=== PATIENT | female | born 1985 | race Caucasian/White ===

== ENCOUNTER 2016-10-21 13:56 | Emergency (ER) | payer OTHER ==
[~2016-10-21] VITALS: Ht 154.9 cm; Wt 74.8 kg
[~2016-10-21 13:56] MED LIST: ALPRAZOLAM0.5 M3 PO; ALPRAZOLAM0.5 MG PO; AMLODIPINE BESY10 M1 PO; AMLODIPINE10 MG PO; ASPIRIN CHILDRE81 MG PO; ASPIRIN81 M4 PO; ATIVAN0.5 MG PO; ATORVASTATIN CA20 MG PO; ATORVASTATIN CA40 M1 PO; BACTRIM DS 8001 TAB PO; CALCITRIOL0.5 MC1 PO; CALCIUM CA PO; CALCIUM CA500 MG/51 PO; CIPRO 500MG TA500 MG; CLEOCIN HCL300 MG PO; CLONIDINE0.1 MG PO; COLACE100 MG PO; COZAAR 100MG T100 MG PO; COZAAR 25MG TAB25 MG PO; COZAAR 50MG TAB50 MG PO; COZAAR100 M1 PO; DILAUDID2 M1 PO; DILAUDID2 MG PO; EPOGEN10000 UNIT SC; HYDRALAZINE HC100 M1 PO; HYDRALAZINE HCL25 M1 PO; HYDRALAZINE HCL50 M1 PO; HYDROMORPHONE HC2 MG PO; LABETALOL HCL200 MG PO; LABETALOL HCL300 M1 PO; LABETALOL HYDR100 MG PO; LABETALOL HYDR300 MG PO; LIPITOR20 MG PO; LOSARTAN POTASS50 MG PO; MARINOL2.5 M1 PO; NAPROSYN 250MG250 MG PO; NEURONTIN100 MG PO; NORVASC 2.5 MG2.5 MG PO; NORVASC 5MG TAB5 MG PO; OMEPRAZOLE40 MG PO; ONDANSETRON4 M1 PO; ONDANSETRON4 M1 SL; OXYCODONE5 M1 PO; PERCOCET 325 MG1 TAB PO; PHOSLO PO; PRAVACHOL40 MG PO; PRILOSEC 20MG C20 MG PO; PROCRIT20000 U/ML SC; PROTONIX 40MG T40 MG PO; RENAGEL 800MG800 MG PO; RENVELA800 MG PO; SENSIPAR90 MG PO; TRANDATE-NORMO100 MG PO; TRANDATE-NORMO200 MG PO; VANCOMYCIN 11000 MG; VOLTAREN GEL1% TOP; XANAX0.5 M1 PO; ZOFRAN ODT4 MG SL; ZOFRAN4 M2 PO; [UNRECOGNIZED DRUG - CODE] SC; flexeril PO
--- NOTE | 2016-10-21 14:52 | ED ANKLE/FOOT INJURY COMPLAINT ---
History of Present Illness General Chief Complaint: Foot or Ankle Injury Stated Complaint: RT FOOT PAIN Source: patient Exam Limitations: no limitations Vital Signs & Intake/Output Vital Signs & Intake/Output ED Intake and Output 10/22 0000 10/21 1200 Intake Total Output Total Balance Patient 165 lb Weight Allergies Coded Allergies: Iodinated Contrast Media - Oral and (Intermediate, HIVES AND SWELLING 09/20/16) morphine (Intermediate, RASH, FACIAL SWELLING 09/20/16) Penicillins (RASH 09/20/16) hydroxyzine (PER PT UNKNOWN 09/20/16) lisinopril (ANGIODEMA 09/20/16) LEIDA Inhibitors (ANGIODEMA 09/20/16) Reconcile Medications Alprazolam (Xanax) 0.5 MG TABLET 1 TAB PO DAILY NEEDED PRN ANXIETY ( Reported) Amlodipine Besylate (Amlodipine) 10 MG TAB 1 TAB PO DAILY BP (Reported) Aspirin (Aspirin*) 81 MG TAB.CHEW 81 MG PO DAILY heart health Calcitriol 0.5 MCG CAPSULE 1.5 CAP PO BID SUPPLEMENT (Reported) Calcium Carbonate 500 MG/5 ML ORAL.SUSP 20 ML PO BID SUPPLEMENT (Reported) Epoetin Carlos (Epogen) 10,000 UNIT INJ 10,000 UNIT SC Q2W ANEMIA (Reported) CONTINUE DOSE PER DIALYSIS CLINIC Hydralazine HCl 100 MG TABLET 1 TAB PO BID HTN (Reported) Labetalol HCl 300 MG TABLET 1.5 TAB PO BID HTN (Reported) Losartan (Cozaar) 100 MG TABLET 1 TAB PO DAILY HEART (Reported) Ondansetron HCl (Zofran) 4 MG TABLET 1 TAB PO Q6-8P PRN NAUSEA (Reported) Oxycodone HCl 5 MG TABLET 1-2 TAB PO Q6P PRN pain Triage Note: SMASHED FOOT ON ROCKING CHAIR WHILE RUNNING IN THE HOUSE. +SWELLING +BRUISING Triage Nurses Notes Reviewed? yes Occurred: just prior to arrival Duration: hour(s):, constant, continues in ED Timing: recent history Severity: moderate, severe : No Patient currently breastfeeds: No HPI: 31-year-old female comes into emergency room with complaints of right foot pain. Patient is a dialysis patient. Patient did not take her blood pressure medication today. Patient reports that she hit her foot on a rocking chair and has swelling and pain. Patient is here primarily only for her right foot. Patient denies any other symptoms. Patient denies any pain anywhere else. Sharp problem. Associated swelling right foot. (NAVID SMITH) Past History Travel History Traveled to [place] past 21 day No Medical History Any Pertinent Medical History? 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 Other Medical Hx: Obesity Eczema Catheter associated bacteremia with MRSA in September 2014 MRSA peritonitis/Sepsis History of Terrible compliance with Neds and dialysis History of MRSA: Yes History of VRE: No History of CDIFF: No Influenza Vaccine: 06/23/16 Surgical History Surgical History: , umbilical hernia repair tenckhof placement [place] CATH PLACEMENT AND REMOVAL Psychosocial History Who do you live with Father Services at Home None What is your primary language [place] Tobacco Use: Current Daily Use Daily Tobacco Use Amount/Type: => 5 Cigarettes daily ETOH Use: denies use Illicit Drug Use: denies illicit drug use Family History Family History, If Any: FATHER FH: CAD (coronary artery disease) FH: diabetes mellitus FH: stroke grandmother FH: colon cancer Hx Contributory? No (NAVID SMITH) Review of Systems Review of Systems Constitutional: Reports: no symptoms. EENTM: Reports: no symptoms. Respiratory: Reports: no symptoms. Cardiovascular: Reports: no symptoms. GI: Reports: no symptoms. Genitourinary: Reports: no symptoms. Musculoskeletal: Reports: see HPI. Skin: Reports: no symptoms. Neurological/Psychological: Reports: no symptoms. Hematologic/Endocrine: Reports: no symptoms. Immunologic/Allergic: Reports: no symptoms. All Other Systems: Reviewed and Negative (NAVID SMITH) Physical Exam Physical Exam General Appearance: well developed/nourished, mild distress Head: atraumatic Eyes: Bilateral: normal appearance. Ears, Nose, Throat: normal ENT inspection, hearing grossly normal Neck: normal inspection Cardiovascular/Respiratory: no respiratory distress Back: normal inspection Leg/Knee/Thigh Left: normal range of motion Foot Right: ecchymosis, soft tissue tenderness (dorsal aspect of foot), swelling Neuro/Vascular: normal motor function, normal sensation Tendon: normal tendon function Psychiatric: awake, alert, oriented x 3 Skin: intact, normal color, warm/dry (NAVID SMITH) Progress Differential Diagnosis: fracture, dislocation, sprain, compartmental syndrome Plan of Care: Orders Procedure Date/time Status XRY-FOOT COMPLETE, RIGHT 10/21 1402 Active Current Medications Sig/Bryan Start time Last Medication Dose Stop Time Status Admin Amlodipine Besylate 10 MG ONCE ONE 10/21 1500 UNVr (Norvasc) 10/21 1501 Hydralazine HCl 100 MG ONCE ONE 10/21 1500 UNVr (Apresoline) 10/21 1501 Labetalol HCl 300 MG ONCE ONE 10/21 1499 UNVr (Trandate-Normodyne 10/21 1501 200MG Tab) Losartan Potassium 100 MG ONCE ONE 10/21 1500 UNVr (Cozaar) 10/21 1501 Diagnostic Imaging: Viewed by Me: Radiology Read. Discussed w/RAD: Radiology Read. Radiology Impression: SERVICE DATE: 10/21/16 EXAM TYPE: RAD - XRY-FOOT COMPLETE, R EXAMINATION: XR FOOT, RIGHT CLINICAL INFORMATION: Trauma. Pain. COMPARISON: None TECHNIQUE: AP, lateral, and oblique views of the right foot. FINDINGS: There is no visible acute fracture, dislocation or periosteal elevation. There is mild dorsal midfoot soft tissue swelling suggestive of soft tissue hematoma. The ankle mortise and subtalar joints are normal. IMPRESSION: Moderate dorsal midfoot soft tissue swelling. No underlying fracture or dislocation seen. DICTATED BY: BROOKS HILL MD DATE/TIME DICTATED:10/21/161448 NP:KANDICE DATE/TIME TRANSCRIBED:10/21/161448 (NAVID SMITH) Departure Departure Disposition: HOME OR SELF CARE Condition: Stable Clinical Impression Primary Impression: Contusion of right foot Secondary Impressions: Hypertension Referrals: CLARA ANGEL MD (PCP/Family) Additional Instructions: Have your blood pressure rechecked again later on today. Ice. Rest. Return if any other concerns. Ice. Rest. . Elevation. Follow-up with orthopedic doctor provided if not better in 3-5 days. If symptoms do not improve you'll require further evaluation with possible repeat x-rays as well as evaluation by lead generation specialist. Sprains can last anywhere from days to weeks. No high impact running or jumping if you have an ankle sprain or any type of lower extremity sprain. Return to normal activity only after symptoms have resolved. Please go over all results of today's visit with your primary care doctor. Contact your primary care doctor to let them know you were here in the emergency room. There may be nonspecific findings which may not be related to your visit today here in the emergency room but may require further evaluation and chronic monitoring by your primary care doctor. If you had a laceration today the chance of foreign body always remains. You should follow-up with your primary care doctor for recheck in 3-5 days for a wound check. If you had an x-ray done there is a chance that a fracture could have been missed on initial read and you should follow-up with your primary care doctor for repeat x-rays if symptoms persist. If your blood pressure was elevated here in the emergency room please have rechecked by her primary care doctor within the next 48 hours by your primary care doctor. If you were prescribed a narcotic here in the emergency room or any type of controlled substances you're not allowed to drive while taking this medication or operate any type of heavy machinery. Narcotics can make you feel lightheaded dizziness nausea and can cause constipation. You may need to machine operator hop picker a stool softener. Thank you for choosing [facility] emergency room. Please return to the emergency room immediately if you have any other concerns worsening of symptoms. Departure Forms: Customer Survey General Discharge Information Prescriptions: Current Visit Scripts Oxycodone HCl 1-2 TAB PO Q6P PRN pain #10 TAB Comments 10/21/2016 4:11:27 PM Patient clinically looks well. Nontoxic-appearing. No evidence of fracture. Repeat blood pressure much improved after patient took her oral medications. Patient did not take any medications this morning. Patient is chronically high blood pressure. The blood pressure is better than the normal pressure. (NAVID SMITH) PA/AERIAL TRAM OPERATOR Co-Sign Statement Statement: ED Attending supervision documentation- [] I saw and evaluated the patient. I have also reviewed all the pertinent lab results and diagnostic results. I agree with the findings and the plan of care as documented in the PA's/AERIAL TRAM OPERATOR's documentation. X I have reviewed the ED Record and agree with the PA's/AERIAL TRAM OPERATOR's documentation. [] Additions or exceptions (if any) to the PAs/AERIAL TRAM OPERATOR's note and plan are summarized below: [] (JENNIFER COTA,)
--- NOTE | 2016-10-21 14:56 | RADIOLOGY REPORT ---
EXAMINATION: XR FOOT, RIGHT CLINICAL INFORMATION: Trauma. Pain. COMPARISON: None TECHNIQUE: AP, lateral, and oblique views of the right foot. FINDINGS: There is no visible acute fracture, dislocation or periosteal elevation. There is mild dorsal midfoot soft tissue swelling suggestive of soft tissue hematoma. The ankle mortise and subtalar joints are normal. IMPRESSION: Moderate dorsal midfoot soft tissue swelling. No underlying fracture or dislocation seen.
[2016-10-21 15:53] VITALS: BP 184/100
[2016-10-21] MEDS ORDERED: OXYCODONE HCL5 M1 PO (15:56)
== END 2016-10-21 16:09 ==
LOC: ERH 13:56
DX: S90.31XA Contusion of right foot, initial encounter (principal); I10 Essential (primary) hypertension; Z72.0 Tobacco use; W22.09XA Striking against other stationary object, initial encounter
CPT/HCPCS: 73630-RT; J3490

== ENCOUNTER 2016-11-06 11:01 | Inpatient (IN) | payer OTHER ==
[~2016-11-06] VITALS: Ht 154.9 cm; Wt 71.7 kg
[~2016-11-06 11:01] MED LIST changes: +OXYCODONE HCL5 M1 PO
--- NOTE | 2016-11-06 11:04 | ED HEADACHE COMPLAINT ---
History of Present Illness General Chief Complaint: Headache Stated Complaint: BIBA FOR LÓPEZ Source: patient, old records, EMS Exam Limitations: no limitations Vital Signs & Intake/Output Vital Signs & Intake/Output Vital Signs Date Time Temp Pulse Resp B/P Pulse O2 O2 Flow FiO2 Ox Delivery Rate 11/13 1612 98.5 84 20 144/72 92 11/13 1420 76 132/68 ED Intake and Output 11/14 0000 11/13 1200 Intake Total 930 480 Output Total 200 1900 Balance 730 -1420 Intake, IV 30 Intake, Oral 900 480 Number 0 Bowel Movements Output, 200 1900 Dialysate Output, Urine 0 Patient 158 lb Weight Allergies Coded Allergies: Iodinated Contrast Media - Oral and (Intermediate, HIVES AND SWELLING 09/20/16) Penicillins (RASH 09/20/16) hydroxyzine (PER PT UNKNOWN 09/20/16) lisinopril (ANGIODEMA 09/20/16) LEIDA Inhibitors (ANGIODEMA 09/20/16) Reconcile Medications Alprazolam (Xanax) 0.5 MG TABLET 1 TAB PO DAILY NEEDED PRN ANXIETY ( Reported) Amlodipine Besylate 10 MG TABLET 1 TAB PO DAILY BP (Reported) Aspirin (Aspirin*) 81 MG TAB.CHEW 81 MG PO DAILY heart health Calcitriol 0.5 MCG CAPSULE 1.5 CAP PO BID SUPPLEMENT (Reported) Calcium Carbonate 500 MG/5 ML ORAL.SUSP 20 ML PO BID SUPPLEMENT (Reported) Clonidine 0.2 MG/24 HOUR PATCH.TDWK 1 PAT TOP QWED BP (Reported) Epoetin Carlos (Epogen) 10,000 UNIT/ML VIAL 10,000 UNIT SC Q2W ANEMIA (Reported ) Hydralazine HCl 100 MG TABLET 1 TAB PO TID HTN (Reported) Hydromorphone HCl (Dilaudid) 2 MG TABLET 1 TAB PO Q6P pain 7-10 Labetalol HCl 200 MG TABLET 1 TAB PO BID HIGH BLOOD PRESSURE Labetalol HCl 200 MG TABLET 1 TAB PO BID HIGH BLOOD PRESSURE Losartan (Cozaar) 100 MG TABLET 1 TAB PO DAILY HEART (Reported) Ondansetron HCl (Zofran) 4 MG TABLET 1 TAB PO Q6-8P PRN NAUSEA (Reported) Triage Nurses Notes Reviewed? yes Onset: Abrupt Duration: hour(s): (12) Timing: multiple episodes today Quality/Severity: severe Severity Numbers: 10 Head Injury Location: bitemporal Associated Symptoms: NAUSEA, VOMITING HPI: 31 year old female with history of ERSD on PD who presents via EMS from home for chief comlpaint of headache since last night. Vomiting x few episodes this AM, unable to hold down any antihypertensives. Did not take any of her medications today. She reports completing her PD last night. BP was elevated yesterday but states that prior to that BP has been running aroudn 150/90 which is baseline for her. She also took off her clonidine patch because she thought it might be causing an allergi reaction. Past History Travel History Traveled to [place] past 21 day No Medical History Any Pertinent Medical History? 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 Other Medical Hx: Obesity Eczema Catheter associated bacteremia with MRSA in September 2014 MRSA peritonitis/Sepsis History of Terrible compliance with Neds and dialysis History of MRSA: Yes History of VRE: No History of CDIFF: No Influenza Vaccine: 06/23/16 Surgical History Surgical History: , umbilical hernia repair tenckhof placement [place] CATH PLACEMENT AND REMOVAL Psychosocial History Who do you live with Father Services at Home None What is your primary language Greek Family History Family History, If Any: FATHER FH: CAD (coronary artery disease) FH: diabetes mellitus FH: stroke grandmother FH: colon cancer Hx Contributory? No Review of Systems Review of Systems Constitutional: Denies: chills, fever. Eyes: Reports: blurred vision. Ears, Nose, Throat, Mouth: Reports: no symptoms. Respiratory: Denies: cough, short of breath, sputum production. Cardiovascular: Denies: chest pain. Gastrointestinal/Abdominal: Reports: nausea, vomiting. Denies: diarrhea. Genitourinary: Reports: no symptoms. Musculoskeletal: Reports: no symptoms. Skin: Reports: no symptoms. Neurological/Psychological: Reports: headache. Hematologic/Endocrine: Denies: bruising, bleeding. Endocrine: Reports: no symptoms. Immunologic/Allergic: Reports: no symptoms. All Other Systems: Reviewed and Negative Physical Exam Physical Exam General Appearance: well developed/nourished, alert, awake, anxious, moderate distress Head: atraumatic, normal appearance Eyes: Bilateral: normal appearance, PERRL, EOMI. Ears, Nose, Throat: normal pharynx, normal ENT inspection Neck: normal inspection, supple, full range of motion Respiratory: normal breath sounds, chest non-tender, no respiratory distress Cardiovascular: tachycardia Gastrointestinal: normal bowel sounds, soft, non-tender, PD CATHETER IN PLACE Back: normal inspection, normal range of motion Extremities: normal inspection, normal range of motion Psychiatric: awake, alert, oriented x 3 Cranial Nerves: normal hearing, normal speech, PERRL Skin: intact, normal color, warm/dry Core Measures Severe Sepsis Present: No Septic Shock Present: No Progress Differential Diagnosis: HYPERTENSIVE CRISIS, ICH, GASTROENTERITIS, CLONIDINE REBOUND HEADACHE/HYPERTENSION, NON COMPLIANCE Plan of Care: Orders Procedure Date/time Status Discharge Patient 11/13 UNK Active 11/06/2016 12:21:03 PM Patient still in pain despite IV dilaudid. Blood pressures 250/160. Labetalol 20 mg IV ordered. Oral medications and Catapres patch ordered. Nausea is now under control. D/W Dr. valdez in ED. BP improved after IV labetalol, SYstolic 170. Will hold additional antihypertensives. Patient admitted to ICU under Dr. Anton service. (MIRNA COTA,[facility]) Initial ED EKG: NSR Departure Departure Time of Disposition: 1331 Disposition: STILL A PATIENT Condition: Stable Clinical Impression Primary Impression: Hypertensive crisis Referrals: CLARA ANGEL MD (PCP/Family) Departure Forms: Customer Survey General Discharge Information Prescriptions: Current Visit Scripts Labetalol HCl 1 TAB PO BID #60 Hydromorphone HCl (Dilaudid) 1 TAB PO Q6P #12 TAB Labetalol HCl 1 TAB PO BID #60 TAB Admission Note Spoke With: Melanie ANTON MD Documentation of Exam: Documentation of any treatments & extenuating circumstances including Concerns Regarding Discharge (functional status, medication knowledge or non-compliance, living conditions, etc.) that warrant an admission rather than observation: [ICU MONITOR, ANTIHYPERTENSIVES, CARDIOLOGY EVALUATION, MONITOR ELECTROLYTES, SET UP FOR PERITONEAL DIALYSIS] Critical Care Note Critical Care Note Critical Care Time: 75-104 min Anion Gap 14, Estimated GFR 4 L, Glucose 96, Calcium 8.9, Phosphorus 5.0 H, Magnesium 1.7, Total Bilirubin 0.5, AST 8 L, ALT 21, Albumin 3.2 L, CBC w Diff NO MAN DIFF REQ, RBC 3.82 L, MCV 91.4, MCH 29.3, RDW 19.1 H, MPV 8.5, Gran % 95.1 H, Lymphocytes % 3.3 L, Monocytes % 1.2 L, Eosinophils % 0.3, Basophils % 0.1, Absolute Granulocytes 14.5 H, Absolute Lymphocytes 0.5 L, Absolute Monocytes 0.2, Absolute Eosinophils 0, Absolute Basophils 0, PUBS MCHC 32.0 L 11/06/2016 12:21:03 PM Patient still in pain despite IV dilaudid. Blood pressures 250/160. Labetalol 20 mg IV ordered. Oral medications and Catapres patch ordered. Nausea is now under control. (MIRNA COTA,[place]) Initial ED EKG: NSR Departure Departure Time of Disposition: 1331 Disposition: STILL A PATIENT Condition: Stable Clinical Impression Primary Impression: Hypertensive crisis Referrals: CLARA ANGEL MD (PCP/Family) Departure Forms: Customer Survey General Discharge Information Prescriptions: Current Visit Scripts Labetalol HCl 1 TAB PO BID #60 Admission Note Spoke With: Melanie ANTON MD Documentation of Exam: Documentation of any treatments & extenuating circumstances including Concerns Regarding Discharge (functional status, medication knowledge or non-compliance, living conditions, etc.) that warrant an admission rather than observation: [ICU MONITOR, ANTIHYPERTENSIVES, CARDIOLOGY EVALUATION, MONITOR ELECTROLYTES, SET UP FOR PERITONEAL DIALYSIS] Critical Care Note Critical Care Note Critical Care Time: 75-104 min
--- NOTE | 2016-11-06 11:17 | NUR ---
PT LILI FROM HOME. PT WAS GIVEN HERSELF HOME DIALYSIS LAST EVENING AND BEGAN TO GET A LÓPEZ. PT STATES SHE HAD N/V AND COULD NOT KEEP HER HTN MEDS DOWN. PT BP 280/182 IN AMBULANCE. PT ALSO C/O LOW BACK PAIN.
--- NOTE | 2016-11-06 11:29 | NUR ---
PT MEDICATED DIRECTED
[2016-11-06 11:33] LABS: ABSOLUTE BASOPHIL COUNT 0 /CUMM (0.0-0.2); ABSOLUTE EOSINOPHIL COUNT 0.5 /CUMM (0.0-0.7); ABSOLUTE GRANULOCYTE CT 8.1 /CUMM (1.4-6.5); ABSOLUTE MONOCYTE COUNT 0.5 /CUMM (0.10-0.60); BASOPHIL % 0.2 % (0.0-2.0); HEMATOCRIT 34.3 % (37-47); MEAN CORPUSCULAR HGB 29.6 PG (27.0-31.0); MEAN CORPUSCULAR HGB CONC 32.8 G/DL (33.0-37.0); MEAN CORPUSCULAR VOLUME 90.3 FL (81.0-99.0); MEAN PLATELET VOLUME 9.1 FL (7.4-10.4); PLATELET COUNT 405 /CUMM (130-400)
[2016-11-06 11:34] LABS: GRANULOCYTE % 80.6 % (42.2-75.2)
--- NOTE | 2016-11-06 11:57 | NUR ---
CRITICAL TEST RESULTS [id number] TERI BORRERO 31 F TESTS AND RESULTS: CR. 13.6 Results received and read back by: PAYAL HERNÁNDEZ Results received date and time: 11/06/16 1157 The following provider was notified of the results, and read the results back: DR. BRADLEY Notified date and time: 11/06/16 at 1157
--- NOTE | 2016-11-06 12:05 | NUR ---
DR. BRADLEY AWARE OF CURRENT BP MEDS ORDERED
--- NOTE | 2016-11-06 13:23 | NUR ---
DR. NAVARRO IN ROOM FOR EVAL. DR. BRADLEY AWARE OF RECENT BP
--- NOTE | 2016-11-06 13:57 | History & Physical ---
PRAKASH COTA,[facility] 11/06/16 1353: General Information and HPI MD Statement: I have seen and personally examined TERI WILSON and documented this H& P. The patient is a 31 year old F who presented with a patient stated chief complaint of [hypertension, nausea, and headache]. 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 Patient presented complaining of severe, sharp,9/10, constant diffuse headache that radiates to the neck. Patient had similar episode of headache in the past, she associates them with high blood pressure episodes. She had multiple nonbloody episodes of vomiting, because of her vomiting she did not take her oral antihypertensive medication. Patient has ESRD, on peritoneal dialysis at home. For the last few days the dialysis machine was giving alarms, she added I 'm not sure if this dialysis was adequate. Patient reported swelling on both legs. Patient is also complaining of left-sided intermittent and sharp flank pain. She is on 5 medications to keep her BP WNL She denies chest pain, shortness breath, or palpitation. She denies any new weakness or numbness, B [place] change, hearing change, or lower extremity pain. Allergies/Medications Allergies: Coded Allergies: Iodinated Contrast Media - Oral and (Intermediate, HIVES AND SWELLING 09/20/16) morphine (Intermediate, RASH, FACIAL SWELLING 09/20/16) Penicillins (RASH 09/20/16) hydroxyzine (PER PT UNKNOWN 09/20/16) lisinopril (ANGIODEMA 09/20/16) LEIDA Inhibitors (ANGIODEMA 09/20/16) Home Med list Alprazolam (Xanax) 0.5 MG TABLET 1 TAB PO DAILY NEEDED PRN ANXIETY ( Reported) Amlodipine Besylate 10 MG TABLET 1 TAB PO DAILY BP (Reported) Aspirin (Aspirin*) 81 MG TAB.CHEW 81 MG PO DAILY heart health Calcitriol 0.5 MCG CAPSULE 1.5 CAP PO BID SUPPLEMENT (Reported) Calcium Carbonate 500 MG/5 ML ORAL.SUSP 20 ML PO BID SUPPLEMENT (Reported) Clonidine 0.2 MG/24 HOUR PATCH.TDWK 1 PAT TOP QWED BP (Reported) Epoetin Carlos (Epogen) 10,000 UNIT/ML VIAL 10,000 UNIT SC Q2W ANEMIA (Reported ) Hydralazine HCl 100 MG TABLET 1 TAB PO TID HTN (Reported) Labetalol HCl 300 MG TABLET 1.5 TAB PO TID HTN (Reported) Losartan (Cozaar) 100 MG TABLET 1 TAB PO DAILY HEART (Reported) Ondansetron HCl (Zofran) 4 MG TABLET 1 TAB PO Q6-8P PRN NAUSEA (Reported) Past History Travel History Traveled to [place] past 21 day No Medical History Neurological: CVA (January 2013), BASAL GANGLIA lACUNAR stroke Basal ganglia hemorhage, right January 2013 Left Basal ganglia stroke September 2013 L occipital infarct EENT: NONE Cardiovascular: hypertension, hyperlipidemia, LVH Respiratory: pneumonia Gastrointestinal: L ABD PERTINEAL PORT UMBILICAL HERNIA Hepatic: NONE Renal: end-stage renal disease on home PERITONEAL dialysis Musculoskeletal: sciatica Psychiatric: anxiety Endocrine: hyperparathyroidism (secondary) Blood Disorders: NONE Cancer(s): NONE 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 child, parent Services at Home: None Primary Language: Syriac ETOH Use: denies use Illicit Drug Use: denies illicit drug use Living Will? yes Functional Ability ADLs Independent: dressing, eating, toileting, bathing. Ambulation: independent IADLs Independent: shopping, housework, finances, food prep, telephone, transportation , medication admin. Review of Systems Review of Systems Constitutional: Reports: see HPI. Denies: chills, fever, weakness. EENTM: Denies: blurred vision, double vision, visual changes, hearing changes. Cardiovascular: Reports: peripheral edema. Denies: chest pain, palpitations. Respiratory: Denies: cough, orthopnea, short of breath, wheezing. GI: Reports: nausea, vomiting. Denies: abdominal pain, constipation, diarrhea. Genitourinary: Denies: dysuria, hematuria. Musculoskeletal: Reports: back pain. Skin: Denies: rash. Neurological/Psychological: Reports: anxiety, headache. Denies: numbness, paresthesia, tingling. Exam & Diagnostic Data Last 24 Hrs of Vital Signs/I&O Vital Signs Date Time Temp Pulse Resp B/P Pulse O2 O2 Flow FiO2 Ox Delivery Rate 11/06 1409 97.7 78 16 160/90 11/06 1319 78 16 244/142 95 Room Air 11/06 1245 97.7 76 16 245/150 97 11/06 1242 97.7 16 18 244/150 11/06 1242 97.7 76 16 244/50 11/06 1242 97.7 76 16 244/150 11/06 1242 97.7 76 18 244/150 11/06 1214 97.2 86 16 250/160 11/06 1153 250/160 11/06 1129 97.2 86 16 220/160 11/06 1111 97 11/06 1110 97.2 86 16 220/160 95 Room Air Intake & Output 11/06 1600 11/06 0800 11/06 0000 Intake Total Output Total Balance Patient 74.843 kg Weight Physical Exam General Appearance Alert, Oriented X3, Cooperative, Moderate Distress Skin No Rashes HEENT Atraumatic, PERRLA, EOMI, Mucous Membr. moist/pink Cardiovascular Regular Rate, Normal S1, Normal S2, No Murmurs Abdomen crackles over both lungs with left being more than right Neurological Cranial Nerves 3-12 NL, speech mildly impaird which her baseline , left side weakness, this is her baseline Extremities b/l LE and UE edema. her left leg is larger than right with no tenderness Last 24 Hrs of Labs/Ashwin: Laboratory Tests 11/06/16 1124: Anion Gap 13, Estimated GFR 3 L, BUN/Creatinine Ratio 4.0 L, Glucose 111 H, Calcium 8.0 L, Total Bilirubin 0.6, AST 7 L, ALT 30, Alkaline Phosphatase 134 H, Total Protein 6.5, Albumin 3.5, Globulin 3.0, Albumin/Globulin Ratio 1.2, CBC w Diff NO MAN DIFF REQ, RBC 3.80 L, MCV 90.3, MCH 29.6, RDW 18.0 H, MPV 9.1, Gran % 80.6 H, Lymphocytes % 9.6 L, Monocytes % 4.6, Eosinophils % 5.0, Basophils % 0.2, Absolute Granulocytes 8.1 H, Absolute Lymphocytes 1.0 L, Absolute Monocytes 0.5, Absolute Eosinophils 0.5, Absolute Basophils 0, PUBS MCHC 32.8 L Assessment/Plan Assessment: Assessment and plan 1.Hypertensive emergency/headache Patient presented with severe headache and was found to have blood pressure of 245/150. Because of her nausea and vomiting she couldn't take her home antihypertensive medication. * Rule out ACS with serial troponin and EKG * Will control blood pressureand cardiology recommendation 2.ESRD on dialysis On presentation she looked volume overload. He reported that for the few days prior to admission had dialysis machine was making alarm sounds. On admission potassium was 5.1. Symptom and sign of volume overload(as lower extremity edema and crackles over both lungs) * After excluding we will order chest x-ray. * We will consult nephrology to set up a dialysis plan 3. Hx of CVA * Neuro checks * Continue aspirin/statin 4.Anxiety * We will hold medication for now 5.Bilateral lower extremity edema left larger than right * Duplex ultrasound to rule out DVT 6.Left flank pain She has positive tenderness on examination * Left kidney ultrasound Renal dialysis diet Heparin for DVT prophylaxis Full code As Ranked By This Provider Problem List: 1. Neck pain 2. Hypertensive emergency 3. Renal failure 4. Anxiety 5. Vomiting 6. Hypertension 7. Flank pain 8. Obesity 9. Headache Core Measures/Miscellaneous Severe Sepsis Severe Sepsis Present: No Septic Shock Septic Shock Present: No MELISSA COTA,Melanie DUNN 11/06/16 1540: Attending MD Review Statement Attending Statement Attending MD Statement: examined this patient, discuss w/resident/PA/VACUUM PAN OPERATOR, agreed w/resident/PA/VACUUM PAN OPERATOR, reviewed EMR data (avail), discussed with nursing, reviewed images, amended to note Attending Assessment/Plan: I have personally seen and examined the patient and agree with the housestaff's assessment, physical exam and plan as above. Briefly, the patient is a 30-year- old female who has had multiple admissions to [facility] in the past. She has a history of end-stage renal disease from uncontrolled hypertension. She is on peritoneal dialysis at home. Her hypertension is difficult to control, noting she is on 5 medications to maintain her blood pressure in the normal range. She also had a stroke in 2013 with residual left-sided weakness. The patient reported having a severe headache in association with nausea and vomiting. She was not able to take her antihypertensives. In the ED, the patient was found to have very high blood pressures, noting she presented with a blood pressure of 220/160. The patient required multiple medications to control her blood pressure in the emergency department. The patient continues to have a headache and is receiving pain medications for this. She also was noted to incidentally have increased left lower extremity swelling compared to her right lower extremity. She also complains of back pain and has left CVA tenderness on examination. The patient will be monitored in the ICU with neuro checks. We will take extra care to avoid dropping her blood pressure too fast. Dr. Mariee is helping us monitor the patient's blood pressure and making recommendations for adequate control. Troponins will be monitored. We will check lower extremity Dopplers, and a renal ultrasound. Nephrology has been consulted to help us provide the patient with peritoneal dialysis. We will provide her with antiemetics as necessary. She will receive DVT prophylaxis. I discussed the care of the patient with the housestaff and with cardiology. SHASTADINORAH 11/06/16 2151: Core Measures/Miscellaneous Acute Coronary Syndrome ACS Diagnosis: No Cerebrovascular Accident CVA/TIA Diagnosis: No Congestive Heart Failure CHF Diagnosis: No Venous Thromboembolism VTE Risk Factors: Acute medical illness, Age > 40 VTE Prophylaxis Ordered Inpt: Mechanical (ALPS/TEDS) No Mech VTE prophylaxis d/t: No contraindications No VTE Pharm Prophylaxis d/t: No contraindications VTE Diagnosis: No VTE Type: NONE VTE Confirmed by (Test): DUPLEX SCAN LOWER EXT Severe Sepsis Severe Sepsis Present: No Septic Shock Septic Shock Present: No Miscellaneous Documentation Attending Case Discussed With: Melanie TORRES MD Primary Care Physician: CLARA ANGEL MD Patient sees these Specialists Dr. Kodi Guardado Level of Patient Care: Critical Care (CRI) Resident Review Statement Resident Statement: examined this patient, discussed with intern retail, agreed with intern retail Other Findings: Ms. Wilson is a 30-year-old female with significant past medical history of end- stage renal disease [secondary to hypertension, after preeclampsia] on peritoneal dialysis nightly, hypertension with multiple admissions for hypertensive urgency, CVA in 2012 presents today with similar complaints of neck pain radiating up to her head causing a severe headache. She has had multiple admissions with similar complaints which was most likely related to hypertensive urgency. She has quite a difficult time controlling her blood pressure and has been treated with multiple antihypertensives. Today in the emergency department she was again hypertensive, 220/160, which went up shortly after to a maximum of 250/160. She states that this is her typical presentation and she knows she is hypertensive when she has these symptoms. She also complained of feeling nauseated and did have one episode of emesis. 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 Additionally, she complained of some mild left CVA pain, worse with movement and deep inhalation. She denies any chest pain, dyspnea, palpitations, fevers, chills, diaphoresis, constipation or diarrhea. She denies any recent travel or sick contacts. In the emergency department she was dosed with 10 mg of IV labetalol,, 20 mg of IV labetalol, Zofran and then she was able to tolerate her by mouth meds. She was given 300 of by mouth labetalol, 100 of by mouth hydralazine, 10 of by mouth amlodipine and her clonidine patch was applied. Labs were significant for white blood cell count 10, H&H 11.3/3, platelet count 405. Chemistry was significant for sodium 136, potassium 5.1, chloride 96 D1/ creatinine 54/13.6, glucose 111, calcium 8, phosphorus 4.9, alkaline phosphatase 134, troponin I0.03. HCG was negative. Probable list/assessment and plan Hypertensive urgency vs emergency * As Ms. Wilson has ESRD, we cannot use her kidney function to determine if she has acute kidney injury, however she does not have symptoms of encephalopathy, retinal hemorrhages/papilledema (on non-dilated ophthalmologic exam). * Our goal for reduction of blood pressure should be no more than 25-30% of her MAP. Our goal systolic blood pressure should approximately 180 mmHg, and no less than 160 mmHg over the first 24 hours, especially in light of her previous ischemic CVA. * As the patient's blood pressure has corrected significantly, we will avoid any more antihypertensives and if she continues to drop, we will remove her clonidine patch. * In the morning, please resume her BP meds slowly - consider resumption of TID dosed meds first (labetolol/hydralazine) as to not drop her BP too quickly, then dose her losartan, and amlodipine. * Cardio consult pending and appreciated. * Continue Zofran when necessary for nausea and Tylenol, Percocet, Dilaudid for mild/moderate and severe pain ESRD * renal consult placed and appreciated * She will be dialyzed [id number] per nephrology's recommendation with 2.5 % dextrose with 3.5 mEq of calcium * Renal dialysis diet * Avoid all NSAIDs and nephrotoxins Left lower extremity edema * Duplex US to rule out DVT FULL CODE ALPS for DVT ppx for now (U/S ruled out DVT) Renal dialysis diet pain path
--- NOTE | 2016-11-06 15:31 | NUR ---
US HERE TO TAKE PT STATES SHE NEEDS PAIN MED SPOKE WITH HOUSE STAFF DR. JUSTIN AND SHER ORDERED AND GIVEN
--- NOTE | 2016-11-06 15:37 | NUR ---
PT TO ROOM 113
--- NOTE | 2016-11-06 15:38 | NUR ---
US AWARE PT IS READY
[2016-11-06] MEDS ORDERED: CLONIDINE1 EAC1 TOP (15:39)
--- NOTE | 2016-11-06 15:40 | Admission Certification ---
Admission Certification Certification Statement - As attending physician, I certify that at the time of - admission, based on clinical presentation, severity of - symptoms, need for further diagnostic testing and - therapeutic interventions, and risk of adverse outcomes - without in-hospital treatment, in my clinical assessment, - this patient requires an acute hospital stay for a minimum - of two nights or longer. I have also considered psychsocial - factors such as support system, advanced age, financial - issues, cognitive issues, and failed out-patient treatments, - past re-admission history, safety of patient, and lack of - compliance as applicable. Specific rationale supporting this admission is: The patient needs critical care management for hypertensive emergency.
--- NOTE | 2016-11-06 16:49 | NUR ---
US COMPLETED CALL TO FLOOR MARILU BRAGG
--- NOTE | 2016-11-06 16:50 | Cons- Cardiology ---
General Information and HPI Consulting Request Date of Consult: 11/06/16 Requested By: MELISSA COTA,Melanie DUNN Reason for Consult: Hypertensive urgency Source of Information: patient, old records History of Present Illness: 31 year old female well known to me with history of ESRD on peritoneal dialysis and difficult to control HTN. Now admitted again via the ER with worsening headache, neck pain, nausea and vomitting and hypertensive urgency with BP as high as 250/140 in the ER. After multiple meds in the ER the BP remains elevated and the patient is to be admitted to the ICU for BP control and close BP monitoring in view of her prior history of CVA when the BP was lowered too quickly. She denies any other cardiovascular symptoms at the present time. She has noted some fluid retention with swelling of her arms , hands and legs. Allergies/Medications Allergies: Coded Allergies: Iodinated Contrast Media - Oral and (Intermediate, HIVES AND SWELLING 09/20/16) morphine (Intermediate, RASH, FACIAL SWELLING 09/20/16) Penicillins (RASH 09/20/16) hydroxyzine (PER PT UNKNOWN 09/20/16) lisinopril (ANGIODEMA 09/20/16) LEIDA Inhibitors (ANGIODEMA 09/20/16) Home Med List: Alprazolam (Xanax) 0.5 MG TABLET 1 TAB PO DAILY NEEDED PRN ANXIETY ( Reported) Amlodipine Besylate 10 MG TABLET 1 TAB PO DAILY BP (Reported) Aspirin (Aspirin*) 81 MG TAB.CHEW 81 MG PO DAILY heart health Calcitriol 0.5 MCG CAPSULE 1.5 CAP PO BID SUPPLEMENT (Reported) Calcium Carbonate 500 MG/5 ML ORAL.SUSP 20 ML PO BID SUPPLEMENT (Reported) Clonidine 0.2 MG/24 HOUR PATCH.TDWK 1 PAT TOP QWED BP (Reported) Epoetin Carlos (Epogen) 10,000 UNIT/ML VIAL 10,000 UNIT SC Q2W ANEMIA (Reported ) Hydralazine HCl 100 MG TABLET 1 TAB PO TID HTN (Reported) Labetalol HCl 300 MG TABLET 1.5 TAB PO TID HTN (Reported) Losartan (Cozaar) 100 MG TABLET 1 TAB PO DAILY HEART (Reported) Ondansetron HCl (Zofran) 4 MG TABLET 1 TAB PO Q6-8P PRN NAUSEA (Reported) Current Medications: Current Medications Sig/Bryan Start time Last Medication Dose Route Stop Time Status Admin Amlodipine Besylate 0 .STK-MED ONE 11/06 1221 DC PO Amlodipine Besylate 10 MG DAILY 11/06 1214 AC 11/06 PO 1242 Clonidine 1 PAT ONCE ONE 11/06 1230 CAN TOP 11/06 1231 Clonidine 1 PAT ONCE ONE 11/06 1230 DC 11/06 TOP 11/06 1231 1242 Hydralazine HCl 0 .STK-MED ONE 11/06 1404 DC .ROUTE Hydralazine HCl 10 MG ONCE ONE 11/06 1400 DC IV 11/06 1401 Hydralazine HCl 100 MG ONCE ONE 11/06 1215 DC 11/06 PO 11/06 1216 1242 Hydromorphone HCl 1 MG ONCE ONE 11/06 1545 DC 11/06 IV 11/06 1546 1536 Hydromorphone HCl 0 .STK-MED ONE 11/06 1535 DC .ROUTE Hydromorphone HCl 0 .STK-MED ONE 11/06 1222 DC .ROUTE Hydromorphone HCl 1 MG ONCE ONE 11/06 1215 DC 11/06 IV 11/06 1216 1214 Hydromorphone HCl 1 MG ONCE ONE 11/06 1130 DC 11/06 IV 11/06 1131 1129 Hydromorphone HCl 0 .STK-MED ONE 11/06 1126 DC .ROUTE Labetalol HCl 20 MG ONCE ONE 11/06 1215 DC 11/06 IV 11/06 1216 1214 Labetalol HCl 300 MG TID 11/06 1215 AC 11/06 PO 1242 Labetalol HCl 10 MG ONCE ONE 11/06 1130 DC 11/06 IV 11/06 1131 1129 Labetalol HCl 0 .STK-MED ONE 11/06 1127 DC IV Ondansetron HCl 4 MG ONCE ONE 11/06 1130 DC 11/06 IV 11/06 1131 1129 Ondansetron HCl 0 .STK-MED ONE 11/06 1126 DC .ROUTE Past History Travel History Traveled to [place] past 21 day No Medical History Neurological: CVA (January 2013), BASAL GANGLIA lACUNAR stroke Basal ganglia hemorhage, right January 2013 Left Basal ganglia stroke September 2013 L occipital infarct EENT: NONE Cardiovascular: hypertension, hyperlipidemia, LVH Respiratory: pneumonia Gastrointestinal: L ABD PERTINEAL PORT UMBILICAL HERNIA Hepatic: NONE Renal: end-stage renal disease on home PERITONEAL dialysis Musculoskeletal: sciatica Psychiatric: anxiety Endocrine: hyperparathyroidism (secondary) Blood Disorders: NONE Cancer(s): NONE 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 child, parent Services at Home: None Primary Language: Maltese ETOH Use: denies use Illicit Drug Use: denies illicit drug use Living Will? yes Functional Ability ADLs Independent: dressing, eating, toileting, bathing. Ambulation: independent IADLs Independent: shopping, housework, finances, food prep, telephone, transportation , medication admin. ECHO Results (as available) Date of last Echo 07/12/16 EF% 65 Report: CONCLUSIONS 1. Mild aortic sclerosis is present with mild aortic insufficiency. 2. Mitral leaflet thickening is present with mild to moderate anular calcification and mild mitral insufficiency with moderate left atrial enlargement. 3. There is no pericardial fluid present. 4. The left ventricular chamber size is normal with severe concentric hypertrophy and a normal ejection fraction with no resting wall motion abnormalities. Mild diastolic dysfunction is present. 5. Mild to moderate tricuspid insufficiency is present with mild pulmonic insufficiency and mild pulmonary hypertension with an estimated RV systolic pressure of 46 mmHg. 6. THere appearts to be a mobile echodensity present in the distal aspect of the transverse aortic arch. Further assessment is suggested if clinically indicated (chest CT, AARON, etc.). Exam & Diagnostic Data Vital Signs and I&O Vital Signs Date Time Temp Pulse Resp B/P Pulse O2 O2 Flow FiO2 Ox Delivery Rate 11/06 1507 97.7 76 16 148/90 97 Room Air 11/06 1409 97.7 78 16 160/90 11/06 1319 78 16 244/142 95 Room Air 11/06 1245 97.7 76 16 245/150 97 11/06 1242 97.7 16 18 244/150 11/06 1242 97.7 76 16 244/50 11/06 1242 97.7 76 16 244/150 11/06 1242 97.7 76 18 244/150 11/06 1214 97.2 86 16 250/160 11/06 1153 250/160 11/06 1129 97.2 86 16 220/160 11/06 1111 97 11/06 1110 97.2 86 16 /160 95 Room Air Intake & Output 11/06 1600 11/06 0800 11/06 0000 11/05 1600 11/05 0800 11/05 0000 Intake Total Output Total Balance Patient 165 lb Weight Physical Exam: General Appearance Alert, Oriented X3, Cooperative, Moderate Distress Skin Normal HEENT Normal Cardiovascular Regular Rate, Normal S1, Normal S2, S4, 1-2/6 systolic murmur Chest: scattered bilateral rhonchi Neurological Cranial Nerves 3-12 NL, speech mildly impaird which her baseline , left side weakness, this is her baseline Extremities b/l LE and UE edema. her left leg is larger than right with no tenderness Labs/Ashwin Results: Laboratory Tests 11/06 1123 Chemistry Sodium (137 - 145 mmol/L) 136 L Potassium (3.5 - 5.1 mmol/L) 5.1 Chloride (98 - 107 mmol/L) 96 L Carbon Dioxide (22 - 30 mmol/L) 26 Anion Gap (5 - 16) 13 BUN (7 - 17 mg/dL) 54 H Creatinine (0.5 - 1.0 mg/dL) 13.6 *H Estimated GFR (>60 ml/min) 3 L BUN/Creatinine Ratio (7 - 25 %) 4.0 L Glucose (65 - 99 mg/dL) 111 H Calcium (8.4 - 10.2 mg/dL) 8.0 L Phosphorus (2.5 - 4.5 mg/dL) 4.9 H Magnesium (1.6 - 2.3 mg/dL) 1.7 Total Bilirubin (0.2 - 1.3 mg/dL) 0.6 AST (14 - 36 U/L) 7 L ALT (9 - 52 U/L) 30 Alkaline Phosphatase (<127 U/L) 134 H Troponin I (< 0.11 ng/ml) 0.03 Total Protein (6.3 - 8.2 g/dL) 6.5 Albumin (3.5 - 5.0 g/dL) 3.5 Globulin (1.9 - 4.2 gm/dL) 3.0 Albumin/Globulin Ratio (1.1 - 2.2 %) 1.2 TSH (0.270 - 4.200 uIU/mL) 2.080 Total Beta HCG (NEGATIVE) NEGATIVE Hematology CBC w Diff NO MAN DIFF REQ WBC (4.8 - 10.8 /CUMM) 10.0 RBC (4.20 - 5.40 /CUMM) 3.80 L Hgb (12.0 - 16.0 G/DL) 11.3 L Hct (37 - 47 %) 34.3 L MCV (81.0 - 99.0 FL) 90.3 MCH (27.0 - 31.0 PG) 29.6 RDW (11.5 - 14.5 %) 18.0 H Plt Count (130 - 400 /CUMM) 405 H MPV (7.4 - 10.4 FL) 9.1 Gran % (42.2 - 75.2 %) 80.6 H Lymphocytes % (20.5 - 51.1 %) 9.6 L Monocytes % (1.7 - 9.3 %) 4.6 Eosinophils % (0 - 5 %) 5.0 Basophils % (0.0 - 2.0 %) 0.2 Absolute Granulocytes (1.4 - 6.5 /CUMM) 8.1 H Absolute Lymphocytes (1.2 - 3.4 /CUMM) 1.0 L Absolute Monocytes (0.10 - 0.60 /CUMM) 0.5 Absolute Eosinophils (0.0 - 0.7 /CUMM) 0.5 Absolute Basophils (0.0 - 0.2 /CUMM) 0 PUBS MCHC (33.0 - 37.0 G/DL) 32.8 L Assessment/Plan Assessment/Plan Assessment: 1. Hypertensive Urgency 2. ESRD on peritoneal dialysis 3. Prior CVA 4. 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 Mild normocytic anemia 6. Lower extremity edema 7. Severe LVH with mild diastolic dysfunction 8. Mild to moderate TR with mild pulmonary HTN Recommendations: - Admit to ICU for close BP monitoring and BP control - In view of the patient's past history, we should initially target a systolic BP of about 180-190 only. - Discussed in detail with the housestaff. In the AM, we will restart some of the patient's home meds (labetalos, amlodipine, etc) and add the other meds back over the next 24 hours depending on her BP. - Hopefully within 48 hours we will have her back on her home regimen. - Pain and nausea control - Nephrology consult - If headache persists, Head CT please. - NO need to repeat echocardiogram at the present time. Consult Acknowledgment - Thank you for your consult request.
--- NOTE | 2016-11-06 17:07 | ULTRASOUND REPORT ---
EXAMINATION: US TRIPLEX LOWER EXTREMITY, BILATERAL CLINICAL INFORMATION: Bilateral lower extremity swelling and edema. COMPARISON: None TECHNIQUE: Color-flow triplex imaging with spectral analysis and compression Doppler were performed on the bilateral lower extremities. FINDINGS: Respiratory variation, normal compression and augmented flow are noted throughout the bilateral lower extremities. The visualized common femoral vein, superficial femoral vein, profunda femoral vein, popliteal vein and midcalf peroneal and posterior tibial venous segments show no evidence of deep venous thrombosis. There is no Lockhart's cyst. IMPRESSION: Normal triplex scan without evidence of deep venous thrombosis involving the bilateral lower extremities.
--- NOTE | 2016-11-06 17:18 | ULTRASOUND REPORT ---
EXAMINATION: US RETROPERITONEAL COMPLETE (RENAL) CLINICAL INFORMATION: Evaluate for renal pathology. Left flank pain and tenderness. COMPARISON: Renal ultrasound dated 07/16/2016 TECHNIQUE: Real-time imaging of the kidneys and bladder. FINDINGS: RIGHT KIDNEY: 6 x 2.1 x 3 cm (SAG x AP x TRV). Small echogenic right kidney with cortical thinning. Hypoechoic cyst upper pole right kidney measuring approximately 0.8 x 0.6 x 0.7 cm. Lower pole cyst measures 0.7 x 0.7 cm. Nonobstructive calculus mid right kidney measuring 0.4 x 0.2 x 0.3 cm. These findings were also seen on the previous examination with no significant interval change. LEFT KIDNEY: 7.1 x 3 x 3 cm (SAG x AP x TRV). Small kidney with cortical thinning and echogenic cortex. Hypoechoic cystic structure upper to mid left kidney measuring 1 x 0.8 x 0.9 cm. This was also seen on the previous examination. No evidence of renal calculi or hydronephrosis. BLADDER: No gross abnormality. Incidental note is made of moderate ascites. Lobulated spleen with internal calcifications. There is perisplenic and perihepatic fluid. Ascites also seen in the right lower quadrant.. IMPRESSION: 1. Small echogenic kidneys noted bilaterally compatible with underlying medical renal disease. 2. Hypoechoic cysts noted again within bilateral kidneys.. 3. Stable nonobstructing 0.4 cm calculus mid right kidney. 4. Interval increase in the ascites.
--- NOTE | 2016-11-06 17:28 | RADIOLOGY REPORT ---
EXAMINATION: XR PORTABLE CHEST CLINICAL INFORMATION: Bibasilar crackles. COMPARISON: Chest x-ray 09/16/2016. TECHNIQUE: Portable AP view of the chest was obtained. FINDINGS: Single AP view of the chest demonstrates pulmonary hypoinflation. There is blunting of the left costophrenic angle, indicative of a small left-sided pleural effusion. Cardiac mediastinal contours are partially obscured. There is moderate central venous congestion. No overt pulmonary edema is identified. No pneumothoraces. No acute osseous or soft tissue abnormalities. IMPRESSION: Small left-sided pleural effusion. Moderate central venous congestion. No overt pulmonary edema.
[2016-11-06 17:47] VITALS: BP 190/120
--- NOTE | 2016-11-06 17:55 | NUR ---
PT BP 190/120 MANUALLY, NOTIFIED, PT GIVEN IV HYDRALAZINE 10MG, PT C/O 05/06 PAIN IN HEAD, IV DILAUDID GIVEN, PT NAUSEOUS GIVEN IV ZOFRAN, WILL CONT TO MON.
--- NOTE | 2016-11-06 18:07 | NUR ---
BP NOW 183/101, NOTFIED, OK WITH THIS BP, NO FURTHER ORDERS AT THIS TIME. WILL CONT TO MON.
--- NOTE | 2016-11-06 19:17 | NUR ---
PT BP 210/113, MD VEGAS NOTIFIED, WILL CONT TO MON.
--- NOTE | 2016-11-06 20:48 | NUR ---
PT CRYING IN PAIN FROM HEADACHE- REFUSED PERCOCET AND TYLENOL. MD VEGAS MADE AWARE. B/P 200/95, STATES TO GIVE 10PM LABETALOL NOW AND WILL COME SEE PATIENT REGARDING PAIN. WILL CONT TO MONITOR. HR 81.
[2016-11-07] VITALS: BP 200/120
[2016-11-07 01:12] LABS: ABSOLUTE BASOPHIL COUNT 0.1 /CUMM (0.0-0.2); ABSOLUTE EOSINOPHIL COUNT 0.6 /CUMM (0.0-0.7); ABSOLUTE GRANULOCYTE CT 6.1 /CUMM (1.4-6.5); ABSOLUTE LYMPH COUNT 1.6 /CUMM (1.2-3.4); ABSOLUTE MONOCYTE COUNT 0.5 /CUMM (0.10-0.60); BASOPHIL % 0.9 % (0.0-2.0); EOSINOPHIL % 6.9 % (0-5); GRANULOCYTE % 68.4 % (42.2-75.2); HEMATOCRIT 31.5 % (37-47); MEAN CORPUSCULAR HGB 29.6 PG (27.0-31.0); MEAN CORPUSCULAR HGB CONC 32.8 G/DL (33.0-37.0); MEAN CORPUSCULAR VOLUME 90.2 FL (81.0-99.0); MEAN PLATELET VOLUME 9.3 FL (7.4-10.4); PLATELET COUNT 377 /CUMM (130-400); RBC DISTRIBUTION WIDTH 18.2 % (11.5-14.5); WHITE BLOOD CELL COUNT 8.9 /CUMM (4.8-10.8)
[2016-11-07 08:00] VITALS: BP 193/106
--- NOTE | 2016-11-07 08:50 | NUR ---
REC'D THE PT AT 0830 C/0 NAUSEA AND 8/10 BACK APIN WELL A HEADACHE. MEDICATED WITH ZOFRAN 4MG IV AND DILAUDID 0.5MG IV AT 0845. PT DID DRY HEAVE IMMEDIATELY AFTER ADMINISTRATION OF ZOFRAN. A&OX3,CAMILO. PT IS IN A FIRST DEGREE AVB WITH A FL OF .22, NO ECTOPY NOTED PER THE CLAMP FORKLIFT OPERATOR. TRACE TO 1+ EDEMA NOTED TO BLE. JAQUELIN BS ARE CLEAR WITH A ROOM AIR SAT OF 95%. ABD IS DISTENDED THE PERITONEAL DIALYSIS FLUID IS INDWELLING AT THIS TIME. PER DR CHUA THE EXCHANGE TIME HAS BEEN DECREASED TO Q4H WITH A 20MIN DRAIN TIME AND A 10 MIN INSTILL TIME. TO REMAIN INDWELLING UNTIL THE NEXT EXCHANGE. TO ALTERNATE 4.25% WITH 2.5%. 4.25% DUE AT 1000. PERITONEAL DIALYSIS CATHETER INTACT WITH NO REDNESS OR SWELLING NOTED AT THE INSERTION SITE.
--- NOTE | 2016-11-07 10:21 | PN- CRCU ---
Subjective HPI/Critical Care Issues: The patient is sleeping comfortably then arousable. Her blood pressure has ranged from the 130s to the 190s. She reports feeling improved overall. Her oxygen saturations are in the mid 90s on room air. There were no overnight events reported. Objective Current Medications: Current Medications Sig/Bryan Start time Last Medication Dose Route Stop Time Status Admin Acetaminophen 650 MG Q6P PRN 11/06 1745 AC PO Alprazolam 0.5 MG DAILY PRN 11/06 1800 AC 11/06 PO 11/13 1759 1810 Amlodipine Besylate 0 .STK-MED ONE 11/06 1221 DC PO Amlodipine Besylate 10 MG DAILY 11/06 1214 DC 11/06 PO 1242 Aspirin 81 MG DAILY 11/07 1000 AC PO Calcitriol 0.75 MCG BID 11/06 2200 AC 11/07 PO 0017 Calcium Carbonate 2,000 MG BID 11/06 2200 AC 11/07 PO 0017 Clonidine 1 PAT ONCE ONE 11/06 1230 CAN TOP 11/06 1231 Clonidine 1 PAT ONCE ONE 11/06 1230 DC 11/06 TOP 11/06 1231 1242 Epoetin Carlos 10,000 UNIT Q 2 WEEKS 11/20 1000 AC SC Hydralazine HCl 10 MG TID 11/07 1000 DC PO Hydralazine HCl 100 MG TID 11/07 1000 AC 11/07 PO 0553 Hydralazine HCl 10 MG ONCE ONE 11/07 0045 DC 11/07 IV 11/07 0046 0048 Hydralazine HCl 10 MG ONCE ONE 11/06 1745 DC 11/06 IV 11/06 1746 1809 Hydralazine HCl 0 .STK-MED ONE 11/06 1404 DC .ROUTE Hydralazine HCl 10 MG ONCE ONE 11/06 1400 DC IV 11/06 1401 Hydralazine HCl 100 MG ONCE ONE 11/06 1215 DC 11/06 PO 11/06 1216 1242 Hydromorphone HCl 0.4 MG ONCE ONE 11/07 0345 DC 11/07 IV 11/07 0346 0339 Hydromorphone HCl 0.5 MG Q6P PRN 11/06 1745 AC 11/07 IV 0843 Hydromorphone HCl 1 MG ONCE ONE 11/06 1545 DC 11/06 IV 11/06 1546 1536 Hydromorphone HCl 0 .STK-MED ONE 11/06 1535 DC .ROUTE Hydromorphone HCl 0 .STK-MED ONE 11/06 1222 DC .ROUTE Hydromorphone HCl 1 MG ONCE ONE 11/06 1215 DC 11/06 IV 11/06 1216 1214 Hydromorphone HCl 1 MG ONCE ONE 11/06 1130 DC 11/06 IV 11/06 1131 1129 Hydromorphone HCl 0 .STK-MED ONE 11/06 1126 DC .ROUTE Labetalol HCl 450 MG TID 11/07 1000 AC PO Labetalol HCl 100 MG .STK-MED ONE 11/07 0042 DC IV 11/07 0043 Labetalol HCl 300 MG .STK-MED ONE 11/06 1740 DC PO 11/06 1741 Labetalol HCl 20 MG ONCE ONE 11/06 1215 DC 11/06 IV 11/06 1216 1214 Labetalol HCl 300 MG TID 11/06 1215 DC 11/06 PO 2044 Labetalol HCl 10 MG ONCE ONE 11/06 1130 DC 11/06 IV 11/06 1131 1129 Labetalol HCl 0 .STK-MED ONE 11/06 1127 DC IV Losartan Potassium 100 MG DAILY 11/07 1000 AC PO Ondansetron HCl 4 MG ONCE ONE 11/07 0400 DC 11/07 IV 11/07 0401 0349 Ondansetron HCl 4 MG Q6P PRN 11/06 1745 AC 11/07 IV 0843 Ondansetron HCl 4 MG ONCE ONE 11/06 1130 DC 11/06 IV 11/06 1131 1129 Ondansetron HCl 0 .STK-MED ONE 11/06 1126 DC .ROUTE Oxycodone/ 1 TAB Q6P PRN 11/06 1745 AC Acetaminophen PO Vital Signs & I&O Last 24 Hrs of Vitals and I&O: Vital Signs Date Time Temp Pulse Resp B/P Pulse O2 O2 Flow FiO2 Ox Delivery Rate 11/07 0800 95 Room Air Room Air 11/07 0800 98.5 80 24 193/106 95 Room Air Room Air 11/07 0553 81 207/115 11/07 0048 77 200/120 11/07 0000 98.8 74 18 200/120 94 Room Air Room Air 11/06 2044 81 200/95 11/06 1809 202/113 11/06 1747 96 Room Air 11/06 1747 99.3 72 16 190/120 97 Room Air 11/06 1654 97.0 78 16 168/94 11/06 1647 97.0 78 16 168/94 96 Room Air 11/06 1507 97.7 76 16 148/90 97 Room Air 11/06 1409 97.7 78 16 160/90 11/06 1319 78 16 244/142 95 Room Air 11/06 1245 97.7 76 16 245/150 97 11/06 1242 97.7 16 18 244/150 11/06 1242 97.7 76 16 244/50 11/06 1242 97.7 76 16 244/150 11/06 1242 97.7 76 18 244/150 11/06 1214 97.2 86 16 250/160 11/06 1153 250/160 11/06 1129 97.2 86 16 220/160 11/06 1111 97 11/06 1110 97.2 86 16 220/160 95 Room Air Intake & Output 11/07 1600 11/07 0800 11/07 0000 Intake Total 280 80 Output Total 100 -100 Balance 180 180 Intake, IV 20 Intake, Oral 280 60 Output, 100 -100 Dialysate Patient 165 lb Weight Physical Exam General Appearance Sleeping comfortably, then arousable Skin No rashes HEENT Atraumatic, PERRL Cardiovascular Regular Rate, Normal S1, Normal S2, No Murmurs Abdomen Crackles over both lungs with left being more than right Neurological No focality Extremities Left lower extremity larger than right, with no tenderness Results Last 24 Hrs of Lab Results: Laboratory Tests 11/07/1639: Troponin I 0.03 11/07/1639: Anion Gap 12, Estimated GFR 3 L, Glucose 108 H, Calcium 7.6 L, Phosphorus 4.9 H, Magnesium 1.7, Total Bilirubin 0.5, AST 7 L, ALT 21, Albumin 3.1 L, CBC w Diff MAN DIFF ORDERED, RBC 3.50 L, MCV 90.2, MCH 29.6, RDW 18.2 H, MPV 9.3, Gran % 68.4, Lymphocytes % 17.9 L, Monocytes % 5.9, Eosinophils % 6.9 H, Basophils % 0.9, Absolute Granulocytes 6.1, Segmented Neutrophils 51, Absolute Lymphocytes 1.6, Lymphocytes 29, Monocytes 16 H, Absolute Monocytes 0.5, Eosinophils 4, Absolute Eosinophils 0.6, Absolute Basophils 0.1, Nucleated RBCs 1 H, Platelet Estimate ADEQUATE, Polychromasia 1+, Hypochromic-Microcytic 1+, Poikilocytosis 2+, Ovalocytes 1+, Stomatocytes FEW, Elliptocytes FEW, PUBS MCHC 32.8 L, Fld Total RBCs Counted 100 11/06/16 1820: Troponin I 0.05 11/06/16 1124: Anion Gap 13, Estimated GFR 3 L, BUN/Creatinine Ratio 4.0 L, Glucose 111 H, Calcium 8.0 L, Phosphorus 4.9 H, Magnesium 1.7, Total Bilirubin 0.6, AST 7 L, ALT 30, Alkaline Phosphatase 134 H, Troponin I 0.03, Total Protein 6.5, Albumin 3.5, Globulin 3.0, Albumin/Globulin Ratio 1.2, TSH 2.080, Total Beta HCG NEGATIVE, CBC w Diff NO MAN DIFF REQ, RBC 3.80 L, MCV 90.3, MCH 29.6, RDW 18.0 H, MPV 9.1, Gran % 80.6 H, Lymphocytes % 9.6 L, Monocytes % 4.6, Eosinophils % 5.0, Basophils % 0.2, Absolute Granulocytes 8.1 H, Absolute Lymphocytes 1.0 L, Absolute Monocytes 0.5, Absolute Eosinophils 0.5, Absolute Basophils 0, PUBS MCHC 32.8 L Diagnostic Data CXR Findings: Small left-sided pleural effusion. Moderate central venous congestion. No overt pulmonary edema. US Findings: Normal triplex scan without evidence of deep venous thrombosis involving the bilateral lower extremities. Radiology Findings: Renal US: 1. Small echogenic kidneys noted bilaterally compatible with underlying medical renal disease. 2. Hypoechoic cysts noted again within bilateral kidneys. 3. Stable nonobstructing 0.4 cm calculus mid right kidney. 4. Interval increase in the ascites. Impression/Plan Impression/Plan Impression/Plan: 1. Hypertensive emergency - the patient's blood pressure is better controlled noting that her headache has improved on the current regimen, cardiology is following. 2. End-stage renal disease on peritoneal dialysis. 3. History of stroke following rapid drop of blood pressure. 4. Chronic pain. 5. History of anxiety. 6. Left greater than right lower extremity swelling, lower extremity Doppler negative for DVT. Recommendations: * Continue blood pressure control as recommended by cardiology. * We will continue to monitor the blood pressure closely to ensure it does not drop too rapidly. * Continue with pain control for headache. * Peritoneal dialysis as per nephrology. * Continue Xanax for anxiety control. * Acetaminophen, Percocet and Dilaudid to continue for pain control. * DVT prophylaxis with Venodyne's. * Continue all supportive care. Will transfer out of ICU when cleared by cardiology.
--- NOTE | 2016-11-07 10:43 | NUR ---
PER PT AT 1000 "I CAN'T TAKE PILLS. IM GOING TO THROW UP." BP WAS 221/114. DR LIANA BAER NOTIFIED AND THE PT WAS ADMINISTERED LABETALOL 20 MG IV AT 1030 ALONG WITH ATIVAN 1MG IV AT 1040 FOR ANXIETY. WILL CONTINUE TO MONITOR. PT DRAINED 2350ML FROM PD.
--- NOTE | 2016-11-07 11:44 | NUR ---
DESPITE RECEIVING LABETALOL 20 MG IV AT 1025 THE PT'S BP WAS 224/[address] LARISSA PINEDA NOTIFIED AND THE PT WAS MEDICATED WITH AN ADDITIONAL LABETALOL 20MG IV AT 1140. WILL CONTINUE TO MONITOR.
--- NOTE | 2016-11-07 13:20 | NUR ---
AT 1300 THE PT'S BP WAS 200/109. DR LIANA BAER SPOKE WITH THE PT AND THE PT AGREED TO TAKE HER ANTIHYPERTENSIVE MEDS. LABETALOL 450MG PO AND COZAAR 100MG ADMINISTERED AT 1315. WILL CONTINUE TO MONITOR.
--- NOTE | 2016-11-07 13:40 | PN- Resident CRCU ---
Subjective HPI/CRCU Issues: Patient in ICU for: Hypertensive urgency Patient got that no dialysis this AM. She states she still continues to have nausea and has refused her blood pressure medications we will give her IV medications until we can resume her by mouth outpatient regimen. Blood pressure is ranging between 140s systolic to 230s systolic. She has a clonidine patch on. MAXIMUM TEMPERATURE 99.3, pulse ranged between 72-86, Restoril rate between 16 and 22 satting well on room air. Objective Vital Signs & I&O Last 8 Hrs of Vitals and I&O: Intake & Output 11/07 1600 Intake Total Output Total 350 Balance -350 Output, 350 Dialysate Exam General Appearance: well developed/nourished, no apparent distress, alert, awake Head: atraumatic, normal appearance Ears, Nose, Throat: normal pharynx, normal ENT inspection Neck: supple Respiratory: normal breath sounds, chest non-tender, no respiratory distress, quiet respiration, lungs clear Cardiovascular: regular rate/rhythm Gastrointestinal: soft, non-tender Extremities: pedal edema Nutrition Nutrition: P.O. diet Current Medications: Current Medications Sig/Bryan Start time Last Medication Dose Route Stop Time Status Admin Acetaminophen 650 MG Q6P PRN 11/06 1745 AC PO Alprazolam 0.5 MG DAILY PRN 11/06 1800 AC 11/06 PO 11/13 1759 1810 Amlodipine Besylate 10 MG DAILY 11/06 1214 DC 11/06 PO 1242 Aspirin 81 MG DAILY 11/07 1000 AC PO Calcitriol 0.75 MCG BID 11/06 2200 AC 11/07 PO 0017 Calcium Carbonate 2,000 MG BID 11/06 2200 AC 11/07 PO 1312 Epoetin Carlos 10,000 UNIT Q 2 WEEKS 11/20 1000 AC SC Hydralazine HCl 10 MG TID 11/07 1000 DC PO Hydralazine HCl 100 MG TID 11/07 1000 AC 11/07 PO 0553 Hydralazine HCl 10 MG ONCE ONE 11/07 0045 DC 11/07 IV 11/07 0046 0048 Hydralazine HCl 10 MG ONCE ONE 11/06 1745 DC 11/06 IV 11/06 1746 1809 Hydralazine HCl 0 .STK-MED ONE 11/06 1404 DC .ROUTE Hydralazine HCl 10 MG ONCE ONE 11/06 1400 DC IV 11/06 1401 Hydromorphone HCl 0.4 MG ONCE ONE 11/07 0345 DC 11/07 IV 11/07 0346 0339 Hydromorphone HCl 0.5 MG Q6P PRN 11/06 1745 AC 11/07 IV 0843 Hydromorphone HCl 1 MG ONCE ONE 11/06 1545 DC 11/06 IV 11/06 1546 1536 Hydromorphone HCl 0 .STK-MED ONE 11/06 1535 DC .ROUTE Labetalol HCl 20 MG ONCE ONE 11/07 1145 DC 11/07 IV 11/07 1146 1136 Labetalol HCl 20 MG ONCE ONE 11/07 1030 DC 11/07 IV 11/07 1031 1026 Labetalol HCl 450 MG TID 11/07 1000 AC 11/07 PO 1309 Labetalol HCl 100 MG .STK-MED ONE 11/07 0042 DC IV 11/07 0043 Labetalol HCl 300 MG .STK-MED ONE 11/06 1740 DC PO 11/06 1741 Labetalol HCl 300 MG TID 11/06 1215 DC 11/06 PO 2044 Lorazepam 1 MG ONCE ONE 11/07 1030 DC 11/07 IV 11/07 1031 1038 Losartan Potassium 100 MG DAILY 11/07 1000 AC 11/07 PO 1312 Ondansetron HCl 4 MG ONCE ONE 11/07 0400 DC 11/07 IV 11/07 0401 0349 Ondansetron HCl 4 MG Q6P PRN 11/06 1745 AC 11/07 IV 0843 Oxycodone/ 1 TAB Q6P PRN 11/06 1745 AC Acetaminophen PO Impression/Plan Impression/Problem List Impression: 1.Hypertensive emergency/headache: On admission patient presented with severe headache and a blood pressure of 245/150. She states that due to nausea and vomiting she did not take her home by mouth regimen. Her blood pressure has ranged from the 140s to the 220s range in the past 12 hours. Patient was taking her by mouth regimen initially, and claimed nausea and refused all her hypertensive medications. She received 2 of IV labetalol 20 mg her blood pressure trended down from 220s to the 180s. * Will control blood pressureand cardiology recommendation * And is to gradually go back onto her home by mouth regimen * Pressure goals around 180-190 systolic we'll gradually titrate 2.ESRD on dialysis: On presentation she looked volume overload. He reported that for the few days prior to admission had dialysis machine was making alarm sounds. On admission potassium was 5.1. Symptom and sign of volume overload(as lower extremity edema and crackles over both lungs) * We will consult nephrology to set up a dialysis plan 3. Hx of CVA * Neuro checks * Continue aspirin/statin 4.Anxiety * We will hold medication for now 5.Bilateral lower extremity edema left larger than right * Duplex ultrasound to rule out DVT 6.Left flank pain She has positive tenderness on examination Renal dialysis diet Heparin for DVT prophylaxis Full code Problem List: 1. Elevated troponin 2. CHF (congestive heart failure) 3. Abnormal EKG Pain Ratin Tomorrow's Labs & Rationales: icu cbc Plan DVT/Prophylaxis: mechanical, pharmacological
--- NOTE | 2016-11-07 13:46 | PN- Cardiology ---
Subjective Subjective: The patient continues to complain of headache and back pain. She initially declined oral medications this morning, however she has now taken them. The blood pressure was significantly elevated this morning, and she was treated with IV labetalol. Objective Vital Signs and I&Os Vital Signs Date Time Temp Pulse Resp B/P Pulse O2 O2 Flow FiO2 Ox Delivery Rate 11/07 1312 98.3 77 20 200/109 11/07 1309 98.3 77 20 200/109 11/07 1200 98 Room Air Room Air 11/07 1136 98.2 80 24 224/124 11/07 1026 98.5 86 20 232/128 11/07 0800 95 Room Air Room Air 11/07 0800 98.5 80 24 193/106 95 Room Air Room Air 11/07 0553 81 207/115 11/07 0048 77 200/120 11/07 0000 98.8 74 18 200/120 94 Room Air Room Air 11/06 2044 81 200/95 11/06 1809 202/113 11/06 1747 96 Room Air 11/06 1747 99.3 72 16 190/120 97 Room Air 11/06 1654 97.0 78 16 168/94 11/06 1647 97.0 78 16 168/94 96 Room Air 11/06 1507 97.7 76 16 148/90 97 Room Air 11/06 1409 97.7 78 16 160/90 Intake & Output 11/07 1600 11/07 0800 11/07 0000 11/06 1600 11/06 0800 11/06 0000 Intake Total 280 80 Output Total 350 100 -100 Balance -350 180 180 Intake, IV 20 Intake, Oral 280 60 Output, 350 100 -100 Dialysate Patient 165 lb 165 lb Weight Physical Exam: Gen: NAD HEENT: normal Lungs: Scattered rhonchi, normal resp. effort Heart: RRR, S1, S2, 2/6 systolic murmur Abdomen: Soft, nontender, no masses Extremities: No clubbing, cyanosis, or edema. Neuro: Alert and oriented x 3, cranial nerves intact Current Medications: Current Medications Sig/Bryan Start time Last Medication Dose Route Stop Time Status Admin Acetaminophen 650 MG Q6P PRN 11/06 1745 AC PO Alprazolam 0.5 MG DAILY PRN 11/06 1800 AC 11/06 PO 11/13 1759 1810 Amlodipine Besylate 10 MG DAILY 11/06 1214 DC 11/06 PO 1242 Aspirin 81 MG DAILY 11/07 1000 AC PO Calcitriol 0.75 MCG BID 11/06 2200 AC 11/07 PO 0017 Calcium Carbonate 2,000 MG BID 11/06 2200 AC 11/07 PO 1312 Epoetin Carlos 10,000 UNIT Q 2 WEEKS 11/20 1000 AC SC Hydralazine HCl 10 MG TID 11/07 1000 DC PO Hydralazine HCl 100 MG TID 11/07 1000 AC 11/07 PO 0553 Hydralazine HCl 10 MG ONCE ONE 11/07 0045 DC 11/07 IV 11/07 0046 0048 Hydralazine HCl 10 MG ONCE ONE 11/06 1745 DC 11/06 IV 11/06 1746 1809 Hydralazine HCl 0 .STK-MED ONE 11/06 1404 DC .ROUTE Hydralazine HCl 10 MG ONCE ONE 11/06 1400 DC IV 11/06 1401 Hydromorphone HCl 0.4 MG ONCE ONE 11/07 0345 DC 11/07 IV 11/07 0346 0339 Hydromorphone HCl 0.5 MG Q6P PRN 11/06 1745 AC 11/07 IV 0843 Hydromorphone HCl 1 MG ONCE ONE 11/06 1545 DC 11/06 IV 11/06 1546 1536 Hydromorphone HCl 0 .STK-MED ONE 11/06 1535 DC .ROUTE Labetalol HCl 20 MG ONCE ONE 11/07 1145 DC 11/07 IV 11/07 1146 1136 Labetalol HCl 20 MG ONCE ONE 11/07 1030 DC 11/07 IV 11/07 1031 1026 Labetalol HCl 450 MG TID 11/07 1000 AC 11/07 PO 1309 Labetalol HCl 100 MG .STK-MED ONE 11/07 0042 DC IV 11/07 0043 Labetalol HCl 300 MG .STK-MED ONE 11/06 1740 DC PO 11/06 1741 Labetalol HCl 300 MG TID 11/06 1215 DC 11/06 PO 2044 Lorazepam 1 MG ONCE ONE 11/07 1030 DC 11/07 IV 11/07 1031 1038 Losartan Potassium 100 MG DAILY 11/07 1000 AC 11/07 PO 1312 Ondansetron HCl 4 MG ONCE ONE 11/07 0400 DC 11/07 IV 11/07 0401 0349 Ondansetron HCl 4 MG Q6P PRN 11/06 1745 AC 11/07 IV 0843 Oxycodone/ 1 TAB Q6P PRN 11/06 174 AC Acetaminophen PO Results Last 48 Hrs of Labs/Mics: Laboratory Tests 11/07/16 0040: Troponin I 0.03 11/07/16 0040: Anion Gap 12, Estimated GFR 3 L, Glucose 108 H, Calcium 7.6 L, Phosphorus 4.9 H, Magnesium 1.7, Total Bilirubin 0.5, AST 7 L, ALT 21, Albumin 3.1 L, CBC w Diff MAN DIFF ORDERED, RBC 3.50 L, MCV 90.2, MCH 29.6, RDW 18.2 H, MPV 9.3, Gran % 68.4, Lymphocytes % 17.9 L, Monocytes % 5.9, Eosinophils % 6.9 H, Basophils % 0.9, Absolute Granulocytes 6.1, Segmented Neutrophils 51, Absolute Lymphocytes 1.6, Lymphocytes 29, Monocytes 16 H, Absolute Monocytes 0.5, Eosinophils 4, Absolute Eosinophils 0.6, Absolute Basophils 0.1, Nucleated RBCs 1 H, Platelet Estimate ADEQUATE, Polychromasia 1+, Hypochromic-Microcytic 1+, Poikilocytosis 2+, Ovalocytes 1+, Stomatocytes FEW, Elliptocytes FEW, PUBS MCHC 32.8 L, Fld Total RBCs Counted 100 11/06/16 1820: Troponin I 0.05 11/06/16 1124: Anion Gap 13, Estimated GFR 3 L, BUN/Creatinine Ratio 4.0 L, Glucose 111 H, Calcium 8.0 L, Phosphorus 4.9 H, Magnesium 1.7, Total Bilirubin 0.6, AST 7 L, ALT 30, Alkaline Phosphatase 134 H, Troponin I 0.03, Total Protein 6.5, Albumin 3.5, Globulin 3.0, Albumin/Globulin Ratio 1.2, TSH 2.080, Total Beta HCG NEGATIVE, CBC w Diff NO MAN DIFF REQ, RBC 3.80 L, MCV 90.3, MCH 29.6, RDW 18.0 H, MPV 9.1, Gran % 80.6 H, Lymphocytes % 9.6 L, Monocytes % 4.6, Eosinophils % 5.0, Basophils % 0.2, Absolute Granulocytes 8.1 H, Absolute Lymphocytes 1.0 L, Absolute Monocytes 0.5, Absolute Eosinophils 0.5, Absolute Basophils 0, PUBS MCHC 32.8 L Assessment/Plan Assessment/Plan Assessment: 1. Hypertensive Urgency 2. ESRD on peritoneal dialysis 3. Prior CVA 4. 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 Mild normocytic anemia 6. Lower extremity edema 7. Severe LVH with mild diastolic dysfunction 8. Mild to moderate TR with mild pulmonary HTN Plan: * To monitor blood pressure, now that the patient has taken her p.m. medications. * Would avoid rapid drops in blood pressure given the patient's history of CVA when blood pressure was lowered too quickly. Continue telemetry? Yes
--- NOTE | 2016-11-07 17:38 | Cons- Nephrology ---
General Information and HPI Consulting Request Date of Consult: 11/07/16 Requested By: Melanie TORRES MD Reason for Consult: Evaluation and management of end-stage renal disease Source of Information: patient, old records Exam Limitations: no limitations History of Present Illness: This 31-year-old woman has a history of end-stage renal disease going back 2011. She has end-stage renal disease due to her profound hypertension. She is also been over the years noncompliant with follow-up vacations. She now presents with nausea and vomiting and inability to take her medications. Since beginning dialysis in April 2012, she has had 33 separate admissions at [place] as well as other hospitals. She was most recently admitted to [facility] on 02/2017. Her blood pressure on admission then was 269/167. Likewise, she was admitted to [facility] on 122. Again also she was admitted with volume overload and accelerated hypertension on 08/30/2016 and this was to [facility] since she has been here, she has been refusing by mouth medications because of nausea. When also sees that she was admitted in May 2016 to [facility]. Again, she was admitted with accelerated hypertension requiring ICU admission. It is suspected that she does not do her dialysis or take her medications. She apparently was told that she has a kidney stone. She believes the kidney stone as the cause of her current difficulties. Allergies/Medications Allergies: Coded Allergies: Iodinated Contrast Media - Oral and (Intermediate, HIVES AND SWELLING 09/20/16) morphine (Intermediate, RASH, FACIAL SWELLING 09/20/16) Penicillins (RASH 09/20/16) hydroxyzine (PER PT UNKNOWN 09/20/16) lisinopril (ANGIODEMA 09/20/16) LEIDA Inhibitors (ANGIODEMA 09/20/16) Home Med List: Alprazolam (Xanax) 0.5 MG TABLET 1 TAB PO DAILY NEEDED PRN ANXIETY ( Reported) Amlodipine Besylate 10 MG TABLET 1 TAB PO DAILY BP (Reported) Aspirin (Aspirin*) 81 MG TAB.CHEW 81 MG PO DAILY heart health Calcitriol 0.5 MCG CAPSULE 1.5 CAP PO BID SUPPLEMENT (Reported) Calcium Carbonate 500 MG/5 ML ORAL.SUSP 20 ML PO BID SUPPLEMENT (Reported) Clonidine 0.2 MG/24 HOUR PATCH.TDWK 1 PAT TOP QWED BP (Reported) Epoetin Carlos (Epogen) 10,000 UNIT/ML VIAL 10,000 UNIT SC Q2W ANEMIA (Reported ) Hydralazine HCl 100 MG TABLET 1 TAB PO TID HTN (Reported) Labetalol HCl 300 MG TABLET 1.5 TAB PO TID HTN (Reported) Losartan (Cozaar) 100 MG TABLET 1 TAB PO DAILY HEART (Reported) Ondansetron HCl (Zofran) 4 MG TABLET 1 TAB PO Q6-8P PRN NAUSEA (Reported) Current Medications: Current Medications Sig/Bryan Start time Last Medication Dose Route Stop Time Status Admin Acetaminophen 650 MG Q6P PRN 11/06 1745 AC PO Alprazolam 0.5 MG DAILY PRN 11/06 1800 AC 11/06 PO 11/13 1759 1810 Amlodipine Besylate 10 MG DAILY 11/08 1000 AC PO Amlodipine Besylate 10 MG DAILY 11/06 1214 DC 11/06 PO 1242 Aspirin 81 MG DAILY 11/07 1000 AC PO Calcitriol 0.75 MCG BID 11/06 2200 AC 11/07 PO 0017 Calcium Carbonate 2,000 MG BID 11/06 2200 AC 11/07 PO 1312 Clonidine 1 PAT Q168 11/14 1000 AC TOP Epoetin Carlos 10,000 UNIT Q 2 WEEKS 11/20 1000 AC SC Hydralazine HCl 10 MG TID 11/07 1000 DC PO Hydralazine HCl 100 MG TID 11/07 1000 AC 11/07 PO 0553 Hydralazine HCl 10 MG ONCE ONE 11/07 0045 DC 11/07 IV 11/07 0046 0048 Hydralazine HCl 10 MG ONCE ONE 11/06 1745 DC 11/06 IV 11/06 1746 1809 Hydromorphone HCl 0.4 MG ONCE ONE 11/07 0345 DC 11/07 IV 11/07 0346 0339 Hydromorphone HCl 0.5 MG Q6P PRN 11/06 1745 AC 11/07 IV 0843 Labetalol HCl 20 MG ONCE ONE 11/07 1145 DC 11/07 IV 11/07 1146 1136 Labetalol HCl 20 MG ONCE ONE 11/07 1030 DC 11/07 IV 11/07 1031 1026 Labetalol HCl 450 MG TID 11/07 1000 AC 11/07 PO 1309 Labetalol HCl 100 MG .STK-MED ONE 11/07 0042 DC IV 11/07 0043 Labetalol HCl 300 MG .STK-MED ONE 11/06 1740 DC PO 11/06 1741 Labetalol HCl 300 MG TID 11/06 1215 DC 11/06 PO 2044 Lorazepam 1 MG ONCE ONE 11/07 1030 DC 11/07 IV 11/07 1031 1038 Losartan Potassium 100 MG DAILY 11/07 1000 AC 11/07 PO 1312 Ondansetron HCl 4 MG ONCE ONE 11/07 0400 DC 11/07 IV 11/07 0401 0349 Ondansetron HCl 4 MG Q6P PRN 11/06 1745 AC 11/07 IV 0843 Oxycodone/ 1 TAB Q6P PRN 11/06 1745 AC Acetaminophen PO Review of Systems Review of Systems Constitutional: Reports: weakness. Denies: chills, diaphoresis. Cardiovascular: Reports: edema. Denies: chest pain. Respiratory: Denies: cough, hemoptysis. GI: Reports: nausea, vomiting. Denies: abdominal pain. Genitourinary: Reports: no symptoms. Past History Travel History Traveled to [place] past 21 day No Medical History Blood Transfusion Hx: No Neurological: CVA (January 2013), BASAL GANGLIA lACUNAR stroke Basal ganglia hemorhage, right January 2013 Left Basal ganglia stroke September 2013 L occipital infarct, acute up 6 of little stroke in March 2015. Hemorrhagic stroke in September 2013 at [facility]. In February 2013, a right basal ganglia hemorrhagic CVA. In 2012, she had been transferred to [place] and ultimately to [facility]. 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 child, parent Services at Home: None Primary Language: Yi Smoking Status: Current Everyday Smoker ETOH Use: denies use Illicit Drug Use: denies illicit drug use Living Will? yes Functional Ability ADLs Independent: dressing, eating, toileting, bathing. Ambulation: independent IADLs Independent: shopping, housework, finances, food prep, telephone, transportation , medication admin. ECHO Results (as available) Date of last Echo 07/12/16 EF% 65 Exam & Diagnostic Data Vital Signs and I&O Vital Signs Date Time Temp Pulse Resp B/P Pulse O2 O2 Flow FiO2 Ox Delivery Rate 11/07 1623 99.1 72 24 170/100 11/07 1312 98.3 77 20 200/109 11/07 1309 98.3 77 20 200/109 11/07 1200 98 Room Air Room Air 11/07 1136 98.2 80 24 224/124 11/07 1026 98.5 86 20 232/128 11/07 0800 95 Room Air Room Air 11/07 0800 98.5 80 24 193/106 95 Room Air Room Air 11/07 0553 81 207/115 11/07 0048 77 200/120 11/07 0000 98.8 74 18 200/120 94 Room Air Room Air 11/06 2044 81 200/95 11/06 1809 202/113 11/06 1747 96 Room Air 11/06 1747 99.3 72 16 190/120 97 Room Air Intake & Output 11/07 1600 11/07 0400 11/06 1600 11/06 0400 11/05 1600 11/05 0400 Intake Total 421 80 Output Total 3250 -300 Balance -2829 380 Intake, IV 41 20 Intake, Oral 380 60 Output, 3250 -300 Dialysate Patient 165 lb 165 lb Weight Physical Exam General Appearance: well developed/nourished, no apparent distress, alert, obese Head: atraumatic Eyes: Bilateral: PERRL, EOMI, pale conjunctivae. Ears, Nose, Throat: hearing grossly normal, external pinnae are normal Neck: normal inspection, supple, full range of motion Respiratory: normal breath sounds, chest non-tender Cardiovascular: regular rate/rhythm, edema Peripheral Pulses: 3+ popliteal (R), 3+ popliteal (L), 3+ tibialis posterior (R), 3+ tibialis posterior (L), 3+ dorsalis pedis (R), 3+ dorsalis pedis (L) Back: normal inspection, no vertebral tenderness, sacral edema Extremities: normal inspection, some lower extremity edema Neurologic/Psych: no motor/sensory deficits Cranial Nerves: normal hearing, normal speech, PERRL Skin: intact, normal color, warm/dry Results Pertinent Lab Results: Laboratory Tests 11/07 11/07 11/06 0040 0040 1820 Chemistry Sodium (137 - 145 mmol/L) 135 L Potassium (3.5 - 5.1 mmol/L) 5.0 Chloride (98 - 107 mmol/L) 95 L Carbon Dioxide (22 - 30 mmol/L) 28 Anion Gap (5 - 16) 12 BUN (7 - 17 mg/dL) 57 H Creatinine (0.5 - 1.0 mg/dL) 13.9 *H Estimated GFR (>60 ml/min) 3 L Glucose (65 - 99 mg/dL) 108 H Calcium (8.4 - 10.2 mg/dL) 7.6 L Phosphorus (2.5 - 4.5 mg/dL) 4.9 H Magnesium (1.6 - 2.3 mg/dL) 1.7 Total Bilirubin (0.2 - 1.3 mg/dL) 0.5 AST (14 - 36 U/L) 7 L ALT (9 - 52 U/L) 21 Troponin I (< 0.11 ng/ml) 0.03 0.05 Albumin (3.5 - 5.0 g/dL) 3.1 L Hematology CBC w Diff MAN DIFF ORDERED WBC (4.8 - 10.8 /CUMM) 8.9 RBC (4.20 - 5.40 /CUMM) 3.50 L Hgb (12.0 - 16.0 G/DL) 10.3 L Hct (37 - 47 %) 31.5 L MCV (81.0 - 99.0 FL) 90.2 MCH (27.0 - 31.0 PG) 29.6 RDW (11.5 - 14.5 %) 18.2 H Plt Count (130 - 400 /CUMM) 377 MPV (7.4 - 10.4 FL) 9.3 Gran % (42.2 - 75.2 %) 68.4 Lymphocytes % (20.5 - 51.1 %) 17.9 L Monocytes % (1.7 - 9.3 %) 5.9 Eosinophils % (0 - 5 %) 6.9 H Basophils % (0.0 - 2.0 %) 0.9 Absolute Granulocytes (1.4 - 6.5 /CUMM) 6.1 Segmented Neutrophils (42.2 - 75.2 %) 51 Absolute Lymphocytes (1.2 - 3.4 /CUMM) 1.6 Lymphocytes (20.5 - 51.1 %) 29 Monocytes (1.7 - 9.3 %) 16 H Absolute Monocytes (0.10 - 0.60 /CUMM) 0.5 Eosinophils (0 - 5.0 %) 4 Absolute Eosinophils (0.0 - 0.7 /CUMM) 0.6 Absolute Basophils (0.0 - 0.2 /CUMM) 0.1 Nucleated RBCs (0.0 - 0.0 /100WBC) 1 H Platelet Estimate (ADEQUATE) ADEQUATE Polychromasia 1+ Hypochromic-Microcytic 1+ Poikilocytosis 2+ Ovalocytes 1+ Stomatocytes FEW Elliptocytes FEW PUBS MCHC (33.0 - 37.0 G/DL) 32.8 L Other Body Source Fld Total RBCs Counted (%) 100 11/06 1124 Chemistry Sodium (137 - 145 mmol/L) 136 L Potassium (3.5 - 5.1 mmol/L) 5.1 Chloride (98 - 107 mmol/L) 96 L Carbon Dioxide (22 - 30 mmol/L) 26 Anion Gap (5 - 16) 13 BUN (7 - 17 mg/dL) 54 H Creatinine (0.5 - 1.0 mg/dL) 13.6 *H Estimated GFR (>60 ml/min) 3 L BUN/Creatinine Ratio (7 - 25 %) 4.0 L Glucose (65 - 99 mg/dL) 111 H Calcium (8.4 - 10.2 mg/dL) 8.0 L Phosphorus (2.5 - 4.5 mg/dL) 4.9 H Magnesium (1.6 - 2.3 mg/dL) 1.7 Total Bilirubin (0.2 - 1.3 mg/dL) 0.6 AST (14 - 36 U/L) 7 L ALT (9 - 52 U/L) 30 Alkaline Phosphatase (<127 U/L) 134 H Troponin I (< 0.11 ng/ml) 0.03 Total Protein (6.3 - 8.2 g/dL) 6.5 Albumin (3.5 - 5.0 g/dL) 3.5 Globulin (1.9 - 4.2 gm/dL) 3.0 Albumin/Globulin Ratio (1.1 - 2.2 %) 1.2 TSH (0.270 - 4.200 uIU/mL) 2.080 Total Beta HCG (NEGATIVE) NEGATIVE Hematology CBC w Diff NO MAN DIFF REQ WBC (4.8 - 10.8 /CUMM) 10.0 RBC (4.20 - 5.40 /CUMM) 3.80 L Hgb (12.0 - 16.0 G/DL) 11.3 L Hct (37 - 47 %) 34.3 L MCV (81.0 - 99.0 FL) 90.3 MCH (27.0 - 31.0 PG) 29.6 RDW (11.5 - 14.5 %) 18.0 H Plt Count (130 - 400 /CUMM) 405 H MPV (7.4 - 10.4 FL) 9.1 Gran % (42.2 - 75.2 %) 80.6 H Lymphocytes % (20.5 - 51.1 %) 9.6 L Monocytes % (1.7 - 9.3 %) 4.6 Eosinophils % (0 - 5 %) 5.0 Basophils % (0.0 - 2.0 %) 0.2 Absolute Granulocytes (1.4 - 6.5 /CUMM) 8.1 H Absolute Lymphocytes (1.2 - 3.4 /CUMM) 1.0 L Absolute Monocytes (0.10 - 0.60 /CUMM) 0.5 Absolute Eosinophils (0.0 - 0.7 /CUMM) 0.5 Absolute Basophils (0.0 - 0.2 /CUMM) 0 PUBS MCHC (33.0 - 37.0 G/DL) 32.8 L Assessment/Plan Assessment/Recommendations Assessment: 1. Accelerated hypertension. Suspect that this is due to medication and dialysis noncompliance. This has been a repeated theme in this patient's history. 2. She is complaining of pain which she attributes to a kidney stone. One observer points out that the pain is on the contralateral side. 3. Hypertension. The medications that she was reportedly on were amlodipine, clonidine patch, hydralazine, losartan and available. 4. Anemia. She gets Epogen 40,000 units every other week. Recommendations: We will maintain on every 4 hours exchanges alternating 4.25 and 2.5. Her target weight is reportedly 75 kg. Is not clear to me whether or not that is with 2 L of fluid or not. 2. Would maintain on a 2 g sodium diet. Generally, peritoneal dialysis patients do not require a potassium restriction .
[2016-11-07 18:00] VITALS: BP 170/100
--- NOTE | 2016-11-07 20:43 | NUR ---
PT A/OX3, FOLLOWS COMMANDS. C/O BACK PAIN-SEE EMAR FOR PAIN MED ADMINISTRATION. BREATH SOUNDS CLEAR THOUGHOUT BILATERALLY. NO COUGH, SOB OR RESP DISTRESS NOTED AT PRESENT. SEE FLOW SHEET FOR VS, 02 SATS, I/O'S. MOITOR SHOWS NSR, NO ECTOPY NOTED AT PRESENT. BP ELEVATE-WANT TO KEEP SBP-170-180'S. ABD SOFT, NONTENDER, NONDISTENDED, POSITIVE BOWEL SOUNDS. ON PERITONEAL DIALYSIS Q4. SKIN INTACT
[2016-11-07 23:00] VITALS: BP 141/72
[2016-11-08 05:29] LABS: ABSOLUTE BASOPHIL COUNT 0.1 /CUMM (0.0-0.2); ABSOLUTE EOSINOPHIL COUNT 0.6 /CUMM (0.0-0.7); ABSOLUTE GRANULOCYTE CT 4.4 /CUMM (1.4-6.5); ABSOLUTE MONOCYTE COUNT 0.7 /CUMM (0.10-0.60); BASOPHIL % 0.9 % (0.0-2.0); EOSINOPHIL % 7.2 % (0-5); GRANULOCYTE % 56.8 % (42.2-75.2); HEMATOCRIT 29.7 % (37-47); MEAN CORPUSCULAR HGB 29.2 PG (27.0-31.0); MEAN CORPUSCULAR HGB CONC 31.9 G/DL (33.0-37.0); MEAN CORPUSCULAR VOLUME 91.7 FL (81.0-99.0); MEAN PLATELET VOLUME 8.6 FL (7.4-10.4); PLATELET COUNT 326 /CUMM (130-400); RBC DISTRIBUTION WIDTH 18.5 % (11.5-14.5); RED BLOOD CELL CT 3.24 /CUMM (4.20-5.40); WHITE BLOOD CELL COUNT 7.7 /CUMM (4.8-10.8)
--- NOTE | 2016-11-08 07:39 | NUR ---
PT SLEPT MOST OF NIGHT. RECEIVING DILUADID PRN Q6 FOR C/O RT SIDED BACK PAIN-SEE EMAR. PERITONEAL DIALYSIS DRAINING CLEAR YELLOW DRAINAGE-700ML OVERNIGHT-DRAINS BETTER WHEN PT LYING ON LT SIDE. NO OTHER CHANGE IN PT ASSESSMENTS THOUGHOUT SHIFT
--- NOTE | 2016-11-08 08:36 | PN- Resident CRCU ---
Subjective HPI/CRCU Issues: Patient was seen and examined. Patient is awake, alert, and oriented X3. She is laying on bed and still complaining of left side flank pain. No acute overnight events were reported by the patient or her nurses. BP still fluctuations. The goal today is to keep the systolic blood pressure around 160. Objective Vital Signs & I&O Last 8 Hrs of Vitals and I&O: Intake & Output 11/08 1600 / 0800 11/08 0000 Intake Total 100 Output Total 200 1400 400 Balance -200 -1400 -300 Intake, Oral 100 Number 0 0 Bowel Movements Output, 200 1400 400 Dialysate Output, Urine 0 Laboratory Tests 11/08 0502 Chemistry Sodium (137 - 145 mmol/L) 135 L Potassium (3.5 - 5.1 mmol/L) 4.1 Chloride (98 - 107 mmol/L) 96 L Carbon Dioxide (22 - 30 mmol/L) 31 H Anion Gap (5 - 16) 9 BUN (7 - 17 mg/dL) 44 H Creatinine (0.5 - 1.0 mg/dL) 13.1 *H Estimated GFR (>60 ml/min) 3 L Glucose (65 - 99 mg/dL) 113 H Calcium (8.4 - 10.2 mg/dL) 8.0 L Phosphorus (2.5 - 4.5 mg/dL) 4.8 H Magnesium (1.6 - 2.3 mg/dL) 1.6 Total Bilirubin (0.2 - 1.3 mg/dL) 0.4 AST (14 - 36 U/L) 4 L ALT (9 - 52 U/L) 22 Albumin (3.5 - 5.0 g/dL) 2.6 L Hematology CBC w Diff NO MAN DIFF REQ WBC (4.8 - 10.8 /CUMM) 7.7 RBC (4.20 - 5.40 /CUMM) 3.24 L Hgb (12.0 - 16.0 G/DL) 9.5 L Hct (37 - 47 %) 29.7 L MCV (81.0 - 99.0 FL) 91.7 MCH (27.0 - 31.0 PG) 29.2 RDW (11.5 - 14.5 %) 18.5 H Plt Count (130 - 400 /CUMM) 326 MPV (7.4 - 10.4 FL) 8.6 Gran % (42.2 - 75.2 %) 56.8 Lymphocytes % (20.5 - 51.1 %) 25.7 Monocytes % (1.7 - 9.3 %) 9.4 H Eosinophils % (0 - 5 %) 7.2 H Basophils % (0.0 - 2.0 %) 0.9 Absolute Granulocytes (1.4 - 6.5 /CUMM) 4.4 Absolute Lymphocytes (1.2 - 3.4 /CUMM) 2.0 Absolute Monocytes (0.10 - 0.60 /CUMM) 0.7 H Absolute Eosinophils (0.0 - 0.7 /CUMM) 0.6 Absolute Basophils (0.0 - 0.2 /CUMM) 0.1 PUBS MCHC (33.0 - 37.0 G/DL) 31.9 L Intake & Output 11/08 1600 Intake Total Output Total 200 Balance -200 Output, 200 Dialysate Exam General Appearance: well developed/nourished, alert, awake, mild distress Head: atraumatic, normal appearance Respiratory: mild wheezing and crackles bilaterally Cardiovascular: regular rate/rhythm Gastrointestinal: normal bowel sounds, soft, non-tender, lleft flank tenderness Extremities: +1 edema Current Medications: Current Medications Sig/Bryan Start time Last Medication Dose Route Stop Time Status Admin Acetaminophen 650 MG Q6P PRN 11/06 174 AC PO Alprazolam 0.5 MG .STK-MED ONE 11/08 0001 DC PO 11/08 0002 Alprazolam 0.5 MG DAILY PRN 11/06 1800 AC 11/08 PO 11/13 1759 0026 Amlodipine Besylate 10 MG DAILY 11/08 1000 AC PO Aspirin 81 MG DAILY 11/07 1000 AC PO Calcitriol 0.75 MCG BID 11/06 2200 AC 11/08 PO 1108 Calcium Carbonate 2,000 MG BID 11/06 2200 AC 11/08 PO 1109 Clonidine 1 PAT Q168 11/14 1000 AC TOP Epoetin Carlos 10,000 UNIT Q 2 WEEKS 11/20 1000 AC SC Hydralazine HCl 100 MG Q8 11/08 0915 AC 11/08 PO 0924 Hydralazine HCl 100 MG TID 11/07 1000 DC 11/07 PO 11/08 1000 2121 Hydromorphone HCl 0.5 MG Q6P PRN 11/06 1745 AC 11/08 IV 1250 Labetalol HCl 450 MG TID 11/07 1000 AC 11/08 PO 1109 Losartan Potassium 100 MG DAILY 11/07 1000 AC 11/07 PO 1312 Ondansetron HCl 4 MG Q6P PRN 11/08 1315 UNVr PO Ondansetron HCl 4 MG .STK-MED ONE 11/08 0001 DC IM 11/08 0002 Ondansetron HCl 4 MG Q6P PRN 11/06 1745 DC 11/08 IV 0021 Oxycodone/ 1 TAB Q6P PRN 11/06 1745 AC Acetaminophen PO Impression/Plan Impression/Problem List Impression: 1.Hypertensive emergency/headache: On admission patient presented with severe headache and a blood pressure of 245/150. She states that due to nausea and vomiting she did not take her home by mouth regimen. Her blood pressure has ranged from the 140s to the 220s range in the past 12 hours. Patient was taking her by mouth regimen initially, and claimed nausea and refused all her hypertensive medications. She received 2 of IV labetalol 20 mg her blood pressure trended down from 220s to the 180s. * Will control blood pressureand as per cardiology recommendation. * Pressure goals around 160-180 systolic we'll gradually titrate 2.ESRD on dialysis: On presentation she looked volume overload. He reported that for the few days prior to admission had dialysis machine was making alarm sounds. On admission potassium was 5.1. Symptom and sign of volume overload(as lower extremity edema and crackles over both lungs) * We will continue peritoneal dialysis as per nephrology. * Patient will be on 2 g sodium restriction without potassium restriction( peritoneal dialysis) 3. Hx of CVA * Neuro checks * Continue aspirin/statin 4.Anxiety * Continue Xanax 5.Bilateral lower extremity edema left larger than right * Normal triplex scan without evidence of deep venous thrombosis involving the bilateral lower extremities. 6.Left flank pain * Acetaminophen, Percocet and Dilaudid to continue for pain control. Renal dialysis diet ALBS DVT prophylaxis Full code Problem List: 1. CHF (congestive heart failure) 2. End-stage renal disease on peritoneal dialysis 3. Hypertension 4. Vomiting Pain Ratin Tomorrow's Labs & Rationales: cbc and ciu bundle Plan DVT/Prophylaxis: mechanical, pharmacological
[2016-11-08 09:00] VITALS: BP 190/100
--- NOTE | 2016-11-08 11:09 | PN- CRCU ---
Subjective HPI/Critical Care Issues: The patient continues to have fluctuations in her blood pressure, however it is much better controlled overall. She is awake and alert and remains stable overall. Her respiratory status is stable noting she is on room air. She is afebrile. There were no overnight events reported. Objective Current Medications: Current Medications Sig/Bryan Start time Last Medication Dose Route Stop Time Status Admin Acetaminophen 650 MG Q6P PRN 11/06 1745 AC PO Alprazolam 0.5 MG .STK-MED ONE 11/08 0001 DC PO 11/08 0002 Alprazolam 0.5 MG DAILY PRN 11/06 1800 AC 11/08 PO 11/13 1759 0026 Amlodipine Besylate 10 MG DAILY 11/08 1000 AC PO Aspirin 81 MG DAILY 11/07 1000 AC PO Calcitriol 0.75 MCG BID 11/06 2200 AC 11/07 PO 2121 Calcium Carbonate 2,000 MG BID 11/06 2200 AC 11/07 PO 2123 Clonidine 1 PAT Q168 11/14 1000 AC TOP Epoetin Carlos 10,000 UNIT Q 2 WEEKS 11/20 1000 AC SC Hydralazine HCl 100 MG Q8 11/08 0915 AC 11/08 PO 0924 Hydralazine HCl 100 MG TID 11/07 1000 DC 11/07 PO 11/08 1000 2121 Hydromorphone HCl 0.5 MG Q6P PRN 11/06 1745 AC 11/08 IV 0614 Labetalol HCl 20 MG ONCE ONE 11/07 1145 DC 11/07 IV 11/07 1146 1136 Labetalol HCl 450 MG TID 11/07 1000 AC 11/07 PO 2123 Losartan Potassium 100 MG DAILY 11/07 1000 AC 11/07 PO 1312 Ondansetron HCl 4 MG .STK-MED ONE 11/08 0001 DC IM 11/08 0002 Ondansetron HCl 4 MG Q6P PRN 11/06 1745 AC 11/08 IV 0021 Oxycodone/ 1 TAB Q6P PRN 11/06 1745 AC Acetaminophen PO Vital Signs & I&O Last 24 Hrs of Vitals and I&O: Vital Signs Date Time Temp Pulse Resp B/P Pulse O2 O2 Flow FiO2 Ox Delivery Rate 11/08 0924 67 190/100 11/08 0900 98.7 67 18 190/100 95 Room Air 11/08 0400 93 Room Air Room Air 11/08 0000 94 Room Air Room Air 11/07 2300 97.6 73 25 141/72 94 Room Air Room Air 11/07 2123 73 20 209/119 11/07 2121 73 38 209/119 11/07 1999 94 Room Air Room Air 11/07 1800 92 Room Air Room Air 11/07 1800 99.1 71 18 170/100 92 Room Air Room Air 11/07 1623 99.1 72 24 170/100 11/07 1312 98.3 77 20 200/109 11/07 1309 98.3 77 20 200/109 11/07 1200 98 Room Air Room Air 11/07 1136 98.2 80 24 224/124 Intake & Output 11/08 1600 11/08 0800 11/08 0000 Intake Total 100 Output Total 1400 400 Balance -1400 -300 Intake, Oral 100 Number 0 0 Bowel Movements Output, 1400 400 Dialysate Output, Urine 0 Physical Exam General Appearance Sleeping comfortably, then arousable Skin No rashes HEENT Atraumatic, PERRL Cardiovascular Regular Rate, Normal S1, Normal S2, No Murmurs Abdomen Crackles over both lungs with left being more than right Neurological No focality Extremities Left lower extremity larger than right, with no tenderness Results Last 24 Hrs of Lab Results: Laboratory Tests 11/08/16 0502: Anion Gap 9, Estimated GFR 3 L, Glucose 113 H, Calcium 8.0 L, Phosphorus 4.8 H, Magnesium 1.6, Total Bilirubin 0.4, AST 4 L, ALT 22, Albumin 2.6 L, CBC w Diff NO MAN DIFF REQ, RBC 3.24 L, MCV 91.7, MCH 29.2, RDW 18.5 H, MPV 8.6, Gran % 56.8, Lymphocytes % 25.7, Monocytes % 9.4 H, Eosinophils % 7.2 H, Basophils % 0.9, Absolute Granulocytes 4.4, Absolute Lymphocytes 2.0, Absolute Monocytes 0.7 H, Absolute Eosinophils 0.6, Absolute Basophils 0.1, PUBS MCHC 31.9 L Impression/Plan Impression/Plan Impression/Plan: 1. Hypertensive emergency - the patient's blood pressure is better controlled overall. 2. End-stage renal disease on peritoneal dialysis. 3. History of stroke following rapid drop of blood pressure. 4. Chronic pain. 5. History of anxiety. Recommendations: * Continue blood pressure control as recommended by cardiology. * We will continue to monitor the blood pressure closely to ensure it does not drop too rapidly. * Continue with pain control. * Peritoneal dialysis as per nephrology. * Continue Xanax for anxiety control. * Acetaminophen, Percocet and Dilaudid to continue for pain control. * DVT prophylaxis with Venodyne's. * Continue all supportive care. Continue to monitor in CRCU.
--- NOTE | 2016-11-08 12:37 | RADIOLOGY REPORT ---
EXAMINATION: CHEST 1 VIEW CLINICAL INFORMATION: Follow-up pleural effusion. Left-sided pain. COMPARISON: 11/06/2016. TECHNIQUE: An AP view of the chest is provided. FINDINGS: The cardiac silhouette is not enlarged. The mediastinal and hilar contours are unremarkable. There is a stable [id number] left pleural effusion with associated airspace disease. The osseous structures are unremarkable. IMPRESSION: Stable qjftl-[id number] left pleural effusion with associated airspace disease.
--- NOTE | 2016-11-08 14:51 | PN- Cardiology ---
Subjective Subjective: Left flank and back pain continues. Headache continues to be intermittent. No chest pain. No shortness of breath. No diaphoresis. Objective Vital Signs and I&Os Vital Signs Date Time Temp Pulse Resp B/P Pulse O2 O2 Flow FiO2 Ox Delivery Rate 11/08 1109 64 182/94 11/08 0924 67 190/100 11/08 0900 98.7 67 18 190/100 95 Room Air 11/08 0400 93 Room Air Room Air 11/08 0000 94 Room Air Room Air 11/07 2300 97.6 73 25 141/72 94 Room Air Room Air 11/07 2123 73 20 209/119 11/07 2121 73 38 209/119 11/07 2000 94 Room Air Room Air 11/07 1800 92 Room Air Room Air 11/07 1800 99.1 71 18 170/100 92 Room Air Room Air 11/07 1623 99.1 72 24 170/100 Intake & Output 11/08 1600 11/08 0800 11/08 0000 11/07 1600 11/07 0800 11/07 0000 Intake Total 100 141 280 80 Output Total 200 6761 146 6164 100 -100 Balance -200 -1400 -300 -2809 180 180 Intake, IV 41 20 Intake, Oral 100 100 280 60 Number 0 0 Bowel Movements Output, 200 0082 416 4463 100 -100 Dialysate Output, Urine 0 Patient 170 lb 165 lb Weight Physical Exam: Gen: NAD HEENT: normal Lungs: Scattered rhonchi, normal resp. effort Heart: RRR, S1, S2, 2/6 systolic murmur Abdomen: Soft, nontender, no masses Extremities: No clubbing, cyanosis, or edema. Neuro: Alert and oriented x 3, cranial nerves intact Current Medications: Current Medications Sig/Bryan Start time Last Medication Dose Route Stop Time Status Admin Acetaminophen 650 MG Q6P PRN 11/06 1745 AC PO Alprazolam 0.5 MG .STK-MED ONE 11/08 0001 DC PO 11/08 0002 Alprazolam 0.5 MG DAILY PRN 11/06 1800 AC 11/08 PO 11/13 1759 0026 Amlodipine Besylate 10 MG DAILY 11/08 1000 AC PO Aspirin 81 MG DAILY 11/07 1000 AC PO Calcitriol 0.75 MCG BID 11/06 2200 AC 11/08 PO 1108 Calcium Carbonate 2,000 MG BID 11/06 2199 AC 11/08 PO 1109 Clonidine 1 PAT Q168 11/14 1000 AC TOP Epoetin Carlos 10,000 UNIT Q 2 WEEKS 11/20 1000 AC SC Hydralazine HCl 100 MG Q8 11/08 0915 AC 11/08 PO 0924 Hydralazine HCl 100 MG TID 11/07 1000 DC 11/07 PO 11/08 1000 2121 Hydromorphone HCl 0.5 MG Q6P PRN 11/06 1745 AC 11/08 IV 1250 Labetalol HCl 450 MG TID 11/07 1000 AC 11/08 PO 1109 Losartan Potassium 100 MG DAILY 11/07 1000 AC 11/07 PO 1312 Ondansetron HCl 4 MG Q6P PRN 11/08 1315 AC PO Ondansetron HCl 4 MG .STK-MED ONE 11/08 0605 DC IM 11/08 0606 Ondansetron HCl 4 MG .STK-MED ONE 11/08 0001 DC IM 11/08 0002 Ondansetron HCl 4 MG Q6P PRN 11/06 1745 DC 11/08 IV 0021 Oxycodone/ 1 TAB Q6P PRN 11/06 1745 AC Acetaminophen PO Results Last 48 Hrs of Labs/Mics: Laboratory Tests 11/08/16 0502: Anion Gap 9, Estimated GFR 3 L, Glucose 113 H, Calcium 8.0 L, Phosphorus 4.8 H, Magnesium 1.6, Total Bilirubin 0.4, AST 4 L, ALT 22, Albumin 2.6 L, CBC w Diff NO MAN DIFF REQ, RBC 3.24 L, MCV 91.7, MCH 29.2, RDW 18.5 H, MPV 8.6, Gran % 56.8, Lymphocytes % 25.7, Monocytes % 9.4 H, Eosinophils % 7.2 H, Basophils % 0.9, Absolute Granulocytes 4.4, Absolute Lymphocytes 2.0, Absolute Monocytes 0.7 H, Absolute Eosinophils 0.6, Absolute Basophils 0.1, PUBS MCHC 31.9 L 11/07/16 0040: Troponin I 0.03 11/07/16 0040: Anion Gap 12, Estimated GFR 3 L, Glucose 108 H, Calcium 7.6 L, Phosphorus 4.9 H, Magnesium 1.7, Total Bilirubin 0.5, AST 7 L, ALT 21, Albumin 3.1 L, CBC w Diff MAN DIFF ORDERED, RBC 3.50 L, MCV 90.2, MCH 29.6, RDW 18.2 H, MPV 9.3, Gran % 68.4, Lymphocytes % 17.9 L, Monocytes % 5.9, Eosinophils % 6.9 H, Basophils % 0.9, Absolute Granulocytes 6.1, Segmented Neutrophils 51, Absolute Lymphocytes 1.6, Lymphocytes 29, Monocytes 16 H, Absolute Monocytes 0.5, Eosinophils 4, Absolute Eosinophils 0.6, Absolute Basophils 0.1, Nucleated RBCs 1 H, Platelet Estimate ADEQUATE, Polychromasia 1+, Hypochromic-Microcytic 1+, Poikilocytosis 2+, Ovalocytes 1+, Stomatocytes FEW, Elliptocytes FEW, PUBS MCHC 32.8 L, Fld Total RBCs Counted 100 11/06/16 1820: Troponin I 0.05 Microbiology 11/06 1528 UPPER RESP: Surveillance Culture - COMP Recent Imaging Studies: Chest x-ray: Stable [id number] left pleural effusion with associated airspace disease. Assessment/Plan Assessment/Plan Assessment: 1. Hypertensive Urgency 2. ESRD on peritoneal dialysis 3. Prior CVA 4. 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 Mild normocytic anemia 6. Lower extremity edema 7. Severe LVH with mild diastolic dysfunction 8. Mild to moderate TR with mild pulmonary HTN Plan: * Continue current hypertension medications. * Continue close monitoring of blood pressure. * Would avoid rapid drops in blood pressure given the patient's history of CVA when blood pressure was lowered too quickly. Continue telemetry? Yes
[2016-11-08 16:00] VITALS: BP 146/74
--- NOTE | 2016-11-08 19:11 | PN- Nephrology ---
Assessment/Plan Assessment: 1. Hypertension. Blood pressure better controlled 2. Volume status. Currently on every 4 hours exchanges alternating 4.25 and 2.5 3. Pleural effusion on the left. This is worrisome. 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 The more worrisome issue is whether or not this represents a rent in the diaphragm with passage of peritoneal fluid into the pleural space. There are 2 ways to diagnosis this. The first would be a thoracentesis with examination of the fluid. If the fluid has a high glucose, with a normal blood glucose, then this is peritoneal fluid. The other way would be using iodinated contrast instilled into the peritoneal cavity with dialysate by the peritoneal dialysis nurse and a CAT scan to see if the contrast appears in the pleural space. They also mention airspace disease. She is without fever. Therefore I would doubt a pneumonia. Suggestion: 1. Her weight is down 5 pounds, therefore, we will maintain the current regimen. Subjective Subjective: Complaining of left-sided pain. No shortness of breath. Her blood pressure is better. Objective Vital Signs and I&Os Vital Signs Date Time Temp Pulse Resp B/P Pulse O2 O2 Flow FiO2 Ox Delivery Rate 11/08 1400 68 158/88 11/08 1315 68 162/90 11/08 1200 68 166/90 11/08 1109 64 182/94 11/08 0924 67 190/100 11/08 0900 98.7 67 18 190/100 95 Room Air 11/08 0400 93 Room Air Room Air 11/08 0000 94 Room Air Room Air 11/07 2300 97.6 73 25 141/72 94 Room Air Room Air 11/07 2123 73 20 209/119 11/07 2121 73 38 209/119 11/07 2000 94 Room Air Room Air Intake & Output 11/08 1600 11/08 0400 11/07 1600 11/07 0400 11/06 1600 11/06 0400 Intake Total 100 421 80 Output Total 3020 115 5030 -300 Balance -1600 -300 -2829 380 Intake, IV 41 20 Intake, Oral 100 380 60 Number 0 0 Bowel Movements Output, 9554 633 8415 -300 Dialysate Output, Urine 0 Patient 170 lb 165 lb 165 lb Weight Physical Exam: General Appearance: well developed/nourished, no apparent distress, alert, obese Head: atraumatic Eyes: Bilateral: PERRL, EOMI, pale conjunctivae. Ears, Nose, Throat: hearing grossly normal, external pinnae are normal Neck: normal inspection, supple, full range of motion Respiratory: Decreased breath sounds on the left normal breath sounds on the right, perhaps some chest non-tenderness on the left Cardiovascular: regular rate/rhythm, edema Back: normal inspection, no vertebral tenderness, Extremities: normal inspection, some lower extremity edema Neurologic/Psych: no motor/sensory deficits Cranial Nerves: normal hearing, normal speech, PERRL Skin: intact, normal color, warm/dry Current Medications: Current Medications Sig/Bryan Start time Last Medication Dose Route Stop Time Status Admin Acetaminophen 650 MG Q6P PRN 11/06 1745 AC PO Alprazolam 0.5 MG .STK-MED ONE 11/08 0001 DC PO 11/08 0002 Alprazolam 0.5 MG DAILY PRN 11/06 1800 AC 11/08 PO 11/13 1759 0026 Amlodipine Besylate 10 MG DAILY 11/08 1000 AC PO Aspirin 81 MG DAILY 11/07 1000 AC PO Calcitriol 0.75 MCG BID 11/06 2200 AC 11/08 PO 1108 Calcium Carbonate 2,000 MG BID 11/06 2200 AC 11/08 PO 1109 Clonidine 1 PAT Q168 11/14 1000 AC TOP Epoetin Carlos 10,000 UNIT Q 2 WEEKS 11/20 1000 AC SC Hydralazine HCl 100 MG Q8 11/08 0915 AC 11/08 PO 0924 Hydralazine HCl 100 MG TID 11/07 1000 DC 11/07 PO 11/08 1000 2121 Hydromorphone HCl 0.5 MG Q4P PRN 11/08 1503 AC 11/08 IV 1634 Hydromorphone HCl 0.5 MG Q6P PRN 11/06 1745 DC 11/08 IV 1250 Labetalol HCl 450 MG TID 11/07 1000 AC 11/08 PO 1109 Losartan Potassium 100 MG DAILY 11/07 1000 AC 11/07 PO 1312 Ondansetron HCl 4 MG Q6P PRN 11/08 1315 AC 11/08 PO 1634 Ondansetron HCl 4 MG .STK-MED ONE 11/08 0605 DC IM 11/08 0606 Ondansetron HCl 4 MG .STK-MED ONE 11/08 0001 DC IM 11/08 0002 Ondansetron HCl 4 MG Q6P PRN 11/06 1745 DC 11/08 IV 0021 Oxycodone/ 1 TAB Q6P PRN 11/06 174 AC Acetaminophen PO Results Pertinent Lab Results: Laboratory Tests 11/08 11/07 0502 0040 Chemistry Sodium (137 - 145 mmol/L) 135 L Potassium (3.5 - 5.1 mmol/L) 4.1 Chloride (98 - 107 mmol/L) 96 L Carbon Dioxide (22 - 30 mmol/L) 31 H Anion Gap (5 - 16) 9 BUN (7 - 17 mg/dL) 44 H Creatinine (0.5 - 1.0 mg/dL) 13.1 *H Estimated GFR (>60 ml/min) 3 L Glucose (65 - 99 mg/dL) 113 H Calcium (8.4 - 10.2 mg/dL) 8.0 L Phosphorus (2.5 - 4.5 mg/dL) 4.8 H Magnesium (1.6 - 2.3 mg/dL) 1.6 Total Bilirubin (0.2 - 1.3 mg/dL) 0.4 AST (14 - 36 U/L) 4 L ALT (9 - 52 U/L) 22 Troponin I (< 0.11 ng/ml) 0.03 Albumin (3.5 - 5.0 g/dL) 2.6 L Hematology CBC w Diff NO MAN DIFF REQ WBC (4.8 - 10.8 /CUMM) 7.7 RBC (4.20 - 5.40 /CUMM) 3.24 L Hgb (12.0 - 16.0 G/DL) 9.5 L Hct (37 - 47 %) 29.7 L MCV (81.0 - 99.0 FL) 91.7 MCH (27.0 - 31.0 PG) 29.2 RDW (11.5 - 14.5 %) 18.5 H Plt Count (130 - 400 /CUMM) 326 MPV (7.4 - 10.4 FL) 8.6 Gran % (42.2 - 75.2 %) 56.8 Lymphocytes % (20.5 - 51.1 %) 25.7 Monocytes % (1.7 - 9.3 %) 9.4 H Eosinophils % (0 - 5 %) 7.2 H Basophils % (0.0 - 2.0 %) 0.9 Absolute Granulocytes (1.4 - 6.5 /CUMM) 4.4 Absolute Lymphocytes (1.2 - 3.4 /CUMM) 2.0 Absolute Monocytes (0.10 - 0.60 /CUMM) 0.7 H Absolute Eosinophils (0.0 - 0.7 /CUMM) 0.6 Absolute Basophils (0.0 - 0.2 /CUMM) 0.1 PUBS MCHC (33.0 - 37.0 G/DL) 31.9 L 11/07 11/06 0040 1820 Chemistry Sodium (137 - 145 mmol/L) 135 L Potassium (3.5 - 5.1 mmol/L) 5.0 Chloride (98 - 107 mmol/L) 95 L Carbon Dioxide (22 - 30 mmol/L) 28 Anion Gap (5 - 16) 12 BUN (7 - 17 mg/dL) 57 H Creatinine (0.5 - 1.0 mg/dL) 13.9 *H Estimated GFR (>60 ml/min) 3 L Glucose (65 - 99 mg/dL) 108 H Calcium (8.4 - 10.2 mg/dL) 7.6 L Phosphorus (2.5 - 4.5 mg/dL) 4.9 H Magnesium (1.6 - 2.3 mg/dL) 1.7 Total Bilirubin (0.2 - 1.3 mg/dL) 0.5 AST (14 - 36 U/L) 7 L ALT (9 - 52 U/L) 21 Troponin I (< 0.11 ng/ml) 0.05 Albumin (3.5 - 5.0 g/dL) 3.1 L Hematology CBC w Diff MAN DIFF ORDERED WBC (4.8 - 10.8 /CUMM) 8.9 RBC (4.20 - 5.40 /CUMM) 3.50 L Hgb (12.0 - 16.0 G/DL) 10.3 L Hct (37 - 47 %) 31.5 L MCV (81.0 - 99.0 FL) 90.2 MCH (27.0 - 31.0 PG) 29.6 RDW (11.5 - 14.5 %) 18.2 H Plt Count (130 - 400 /CUMM) 377 MPV (7.4 - 10.4 FL) 9.3 Gran % (42.2 - 75.2 %) 68.4 Lymphocytes % (20.5 - 51.1 %) 17.9 L Monocytes % (1.7 - 9.3 %) 5.9 Eosinophils % (0 - 5 %) 6.9 H Basophils % (0.0 - 2.0 %) 0.9 Absolute Granulocytes (1.4 - 6.5 /CUMM) 6.1 Segmented Neutrophils (42.2 - 75.2 %) 51 Absolute Lymphocytes (1.2 - 3.4 /CUMM) 1.6 Lymphocytes (20.5 - 51.1 %) 29 Monocytes (1.7 - 9.3 %) 16 H Absolute Monocytes (0.10 - 0.60 /CUMM) 0.5 Eosinophils (0 - 5.0 %) 4 Absolute Eosinophils (0.0 - 0.7 /CUMM) 0.6 Absolute Basophils (0.0 - 0.2 /CUMM) 0.1 Nucleated RBCs (0.0 - 0.0 /100WBC) 1 H Platelet Estimate (ADEQUATE) ADEQUATE Polychromasia 1+ Hypochromic-Microcytic 1+ Poikilocytosis 2+ Ovalocytes 1+ Stomatocytes FEW Elliptocytes FEW PUBS MCHC (33.0 - 37.0 G/DL) 32.8 L Other Body Source Fld Total RBCs Counted (%) 100 11/06 1124 Chemistry Sodium (137 - 145 mmol/L) 136 L Potassium (3.5 - 5.1 mmol/L) 5.1 Chloride (98 - 107 mmol/L) 96 L Carbon Dioxide (22 - 30 mmol/L) 26 Anion Gap (5 - 16) 13 BUN (7 - 17 mg/dL) 54 H Creatinine (0.5 - 1.0 mg/dL) 13.6 *H Estimated GFR (>60 ml/min) 3 L BUN/Creatinine Ratio (7 - 25 %) 4.0 L Glucose (65 - 99 mg/dL) 111 H Calcium (8.4 - 10.2 mg/dL) 8.0 L Phosphorus (2.5 - 4.5 mg/dL) 4.9 H Magnesium (1.6 - 2.3 mg/dL) 1.7 Total Bilirubin (0.2 - 1.3 mg/dL) 0.6 AST (14 - 36 U/L) 7 L ALT (9 - 52 U/L) 30 Alkaline Phosphatase (<127 U/L) 134 H Troponin I (< 0.11 ng/ml) 0.03 Total Protein (6.3 - 8.2 g/dL) 6.5 Albumin (3.5 - 5.0 g/dL) 3.5 Globulin (1.9 - 4.2 gm/dL) 3.0 Albumin/Globulin Ratio (1.1 - 2.2 %) 1.2 TSH (0.270 - 4.200 uIU/mL) 2.080 Total Beta HCG (NEGATIVE) NEGATIVE Hematology CBC w Diff NO MAN DIFF REQ WBC (4.8 - 10.8 /CUMM) 10.0 RBC (4.20 - 5.40 /CUMM) 3.80 L Hgb (12.0 - 16.0 G/DL) 11.3 L Hct (37 - 47 %) 34.3 L MCV (81.0 - 99.0 FL) 90.3 MCH (27.0 - 31.0 PG) 29.6 RDW (11.5 - 14.5 %) 18.0 H Plt Count (130 - 400 /CUMM) 405 H MPV (7.4 - 10.4 FL) 9.1 Gran % (42.2 - 75.2 %) 80.6 H Lymphocytes % (20.5 - 51.1 %) 9.6 L Monocytes % (1.7 - 9.3 %) 4.6 Eosinophils % (0 - 5 %) 5.0 Basophils % (0.0 - 2.0 %) 0.2 Absolute Granulocytes (1.4 - 6.5 /CUMM) 8.1 H Absolute Lymphocytes (1.2 - 3.4 /CUMM) 1.0 L Absolute Monocytes (0.10 - 0.60 /CUMM) 0.5 Absolute Eosinophils (0.0 - 0.7 /CUMM) 0.5 Absolute Basophils (0.0 - 0.2 /CUMM) 0 PUBS MCHC (33.0 - 37.0 G/DL) 32.8 L Imaging/Other Studies: PATIENT: TERI BORRERO PRESENT AGE: 31 PATIENT ACCOUNT NO: [id number] : 87 LOCATION: [facility] ORDERING PHYSICIAN: DEANNA RANDALL MD SERVICE DATE: 11/08/16- EXAM TYPE: RAD - XRY-PORTABLE CHEST XRAY EXAMINATION: CHEST 1 VIEW CLINICAL INFORMATION: Follow-up pleural effusion. Left-sided pain. COMPARISON: 11/06/2016. TECHNIQUE: An AP view of the chest is provided. FINDINGS: The cardiac silhouette is not enlarged. The mediastinal and hilar contours are unremarkable. There is a stable [id number] left pleural effusion with associated airspace disease. The osseous structures are unremarkable. IMPRESSION: Stable bdzzw-ay-[id number] left pleural effusion with associated airspace disease. DICTATED BY: PEGGY SMITH MD DATE/TIME DICTATED:11/08/161232 [employer] BOILER:KANDICE DATE/TIME TRANSCRIBED:11/08/161232 CONFIDENTIAL, DO NOT COPY WITHOUT APPROPRIATE AUTHORIZATION. <Electronically signed in Other Vendor System> SIGNED BY: PEGGY SMITH MD 11/08/16 1235
--- NOTE | 2016-11-08 20:47 | NUR ---
PT A/0X3, FOLLOWS COMMANDS. C/O LT SIDE MID BACK PAIN-STABBING IN NATURE,INCREASED ON DEEP INSPIRATION RATES 7 OUT OF 10 AT PRESENT-SEE EMAR FOR PAIN MED ADMINISTRATION. LT SIDED BREATH SOUNDS DIMINISHED MID LOWER, NEARLY ABSENT LOWER LOBE, CLEAR UPPER LOBE, RT SIDE CLEAR WITH DIMINISHED BREATH SOUNDS AT BASE. NO SOB OR RESP DISTRESS OR COUGH NOTED AT PRESENT. 02 SAT 95% ON RA. SEE FLOW SHEET FOR VS, 02 SATS, I/O'S. MONITOR SHOWS NSR, NO ECTOPY NOTED AT PRESENT. BP ELEVATED AT PRESENT-WILL SEE HOW BP IS AFTER DILUADID DOSE. ON PERITONEAL DIALYSIS Q4-DRAINING CLEAR YELLOW DRAINAGE. ABD SOFT, NONTENDER, NONDISTENDED, POSITIVE BOWEL SOUNDS. DOES NOT VOID. SKIN INTACT. C/O NAUSEA-ZOFRAN SL GIVEN-SEE EMAR
--- NOTE | 2016-11-08 21:50 | NUR ---
PT CONTINUED TO RATE PAIN 7 OUT OF 10 AT 2100 AFTER DILUADID DOSE-REPORTED TO DR. WOOTEN-ONE TIME DOSE OF DILUADID 1MG IV GIVEN ORDERED-SEE EMAR-WILL MONITOR
--- NOTE | 2016-11-08 22:25 | NUR ---
PT STATING SHE IS SOB-02 SAT ON RA 86-89%-PLACED ON 02 NC AT FIRST AT 3L WITHOUT EFFECT, THEN 3L WITHOUT EFFECT THEN 4LNC-02 SATS 90-91% ON THE 4LNC-REPORTED TO DR. WOOTEN AND RESP THERAPIST-WILL MONITOR
--- NOTE | 2016-11-08 22:46 | NUR ---
PT EXAMINED BY DR. WOOTEN-STAT CHEST XRAY ORDERED. 02 SATS UP TO 96-97% ON 4LNC.
[2016-11-08 23:00] VITALS: BP 121/59
--- NOTE | 2016-11-08 23:14 | RADIOLOGY REPORT ---
EXAMINATION: XR PORTABLE CHEST CLINICAL INFORMATION: Dyspnea, increased oxygen requirements COMPARISON: 12/06/2016 TECHNIQUE: Portable AP view of the chest was obtained. FINDINGS: There is a redemonstrated small left pleural effusion with adjacent basilar opacity, without significant change from prior. The remainder of the lungs remain clear. No evidence of pneumothorax or overt pulmonary edema. The cardiac silhouette remains prominent. Calcification is present at the aortic arch. Degenerative changes are noted in the spine. IMPRESSION: No significant change from today's earlier exam. Persistent small left pleural effusion with adjacent basilar atelectasis versus consolidation.
[2016-11-09 05:10] LABS: ABSOLUTE BASOPHIL COUNT 0.1 /CUMM (0.0-0.2); ABSOLUTE EOSINOPHIL COUNT 0.5 /CUMM (0.0-0.7); ABSOLUTE GRANULOCYTE CT 4.7 /CUMM (1.4-6.5); ABSOLUTE LYMPH COUNT 1.9 /CUMM (1.2-3.4); ABSOLUTE MONOCYTE COUNT 0.7 /CUMM (0.10-0.60); BASOPHIL % 0.9 % (0.0-2.0); EOSINOPHIL % 6.8 % (0-5); GRANULOCYTE % 59.1 % (42.2-75.2); HEMATOCRIT 33.7 % (37-47); MEAN CORPUSCULAR HGB 29.9 PG (27.0-31.0); MEAN CORPUSCULAR HGB CONC 32.6 G/DL (33.0-37.0); MEAN CORPUSCULAR VOLUME 91.5 FL (81.0-99.0); MEAN PLATELET VOLUME 8.5 FL (7.4-10.4); PLATELET COUNT 356 /CUMM (130-400); RBC DISTRIBUTION WIDTH 18.9 % (11.5-14.5); RED BLOOD CELL CT 3.68 /CUMM (4.20-5.40); WHITE BLOOD CELL COUNT 7.9 /CUMM (4.8-10.8)
--- NOTE | 2016-11-09 06:51 | NUR ---
PT SLEPT ON AND OFF DURING THE NIGHT. RATED LT MID BACK PAIN 7-8 OUT OF 10 FOR SHIFT-SEE EMAR FOR PAIN MED ADMINISTRATION. SBP 140-180'S FOR SHIFT. PERITONEAL DIALYSIS DRAINAGE CLEAR YELLOW. 02 TITRATED DOWN TO 2LNC-SEE FLOW SHEET FOR 02 SATS. NO OTHER CHANGE IN PT ASSESSMENTS THOUGHOUT SHIFT
[2016-11-09 08:00] VITALS: BP 150/82
--- NOTE | 2016-11-09 08:22 | RADIOLOGY REPORT ---
EXAMINATION: XR PORTABLE CHEST CLINICAL INFORMATION: Evaluate for pleural effusion COMPARISON: Multiple chest x-rays most recent prior dated 11/09/2016 TECHNIQUE: Portable AP view of the chest was obtained. FINDINGS: Slight interval increase in the left-sided pleural effusion. Increasing associated infiltrate or atelectasis left lower lung. Low lung volumes. Hazy prominence of the interstitial markings, left greater than right compatible with mild associated interstitial edema. Stable cardiomegaly. IMPRESSION: Slight interval increase left-sided pleural effusion with increasing associated infiltrate or atelectasis. Vascular congestion and probable mild interstitial edema.
--- NOTE | 2016-11-09 08:24 | PN- Resident CRCU ---
Subjective HPI/CRCU Issues: Patient was seen and examined. She is sitting on bed looks mildly distressed because of nausea and left flank pain. Patient is due for her pain medication now. Patient has a pleural effusion on left lung Folger recommended thoracocentesis to look for glucose level in the fluid, if it's high this most likely fluid coming from her pertonial dialysis. She will be sent for IR thoracocentesis later today. Objective Vital Signs & I&O Last 8 Hrs of Vitals and I&O: Intake & Output 11/09 1600 11/09 0800 11/09 0000 Intake Total 100 500 Output Total 0 1000 Balance 100 -500 Intake, Oral 100 500 Number 0 0 Bowel Movements Output, 0 1000 Dialysate Output, Urine 0 0 Laboratory Tests 11/09 0445 Chemistry Sodium (137 - 145 mmol/L) 135 L Potassium (3.5 - 5.1 mmol/L) 4.4 Chloride (98 - 107 mmol/L) 94 L Carbon Dioxide (22 - 30 mmol/L) 30 Anion Gap (5 - 16) 11 BUN (7 - 17 mg/dL) 40 H Creatinine (0.5 - 1.0 mg/dL) 12.1 *H Estimated GFR (>60 ml/min) 4 L Glucose (65 - 99 mg/dL) 85 Calcium (8.4 - 10.2 mg/dL) 8.2 L Phosphorus (2.5 - 4.5 mg/dL) 5.6 H Magnesium (1.6 - 2.3 mg/dL) 1.7 Total Bilirubin (0.2 - 1.3 mg/dL) 0.5 AST (14 - 36 U/L) 9 L ALT (9 - 52 U/L) 27 Albumin (3.5 - 5.0 g/dL) 3.0 L Hematology CBC w Diff NO MAN DIFF REQ WBC (4.8 - 10.8 /CUMM) 7.9 RBC (4.20 - 5.40 /CUMM) 3.68 L Hgb (12.0 - 16.0 G/DL) 11.0 L Hct (37 - 47 %) 33.7 L MCV (81.0 - 99.0 FL) 91.5 MCH (27.0 - 31.0 PG) 29.9 RDW (11.5 - 14.5 %) 18.9 H Plt Count (130 - 400 /CUMM) 356 MPV (7.4 - 10.4 FL) 8.5 Gran % (42.2 - 75.2 %) 59.1 Lymphocytes % (20.5 - 51.1 %) 24.6 Monocytes % (1.7 - 9.3 %) 8.6 Eosinophils % (0 - 5 %) 6.8 H Basophils % (0.0 - 2.0 %) 0.9 Absolute Granulocytes (1.4 - 6.5 /CUMM) 4.7 Absolute Lymphocytes (1.2 - 3.4 /CUMM) 1.9 Absolute Monocytes (0.10 - 0.60 /CUMM) 0.7 H Absolute Eosinophils (0.0 - 0.7 /CUMM) 0.5 Absolute Basophils (0.0 - 0.2 /CUMM) 0.1 PUBS MCHC (33.0 - 37.0 G/DL) 32.6 L Exam General Appearance: well developed/nourished, alert, awake, anxious, mild distress Head: atraumatic, normal appearance Respiratory: normal breath sounds, chest non-tender, no respiratory distress, quiet respiration, wheezing overlying bilaterally Cardiovascular: regular rate/rhythm Gastrointestinal: soft, non-tender Extremities: trace edema, 2 X 2 hematoma on the dorsum of right foot, 2 x 2 inches white scales and dry skin on the dorsum of left foot(psoriasis) Current Medications: Current Medications Sig/Bryan Start time Last Medication Dose Route Stop Time Status Admin Acetaminophen 650 MG Q6P PRN 11/06 1745 AC PO Alprazolam 0.5 MG DAILY PRN 11/06 1800 AC 11/09 PO 11/13 1759 0017 Amlodipine Besylate 10 MG DAILY 11/08 1000 AC PO Aspirin 81 MG DAILY 11/07 1000 AC PO Calcitriol 0.75 MCG BID 11/060 AC 11/08 PO 2119 Calcium Carbonate 2,000 MG BID 11/06 2200 AC 11/08 PO 1109 Clonidine 1 PAT Q168 11/14 1000 AC TOP Epoetin Carlos 10,000 UNIT Q 2 WEEKS 11/20 1000 AC SC Hydralazine HCl 100 MG Q8 11/08 0915 AC 11/08 PO 2241 Hydralazine HCl 100 MG TID 11/07 1000 DC 11/07 PO 11/08 1000 2121 Hydromorphone HCl 1 MG ONCE ONE 11/08 2129 DC 11/08 IV 11/08 213 2131 Hydromorphone HCl 0.5 MG Q4P PRN 11/08 1503 AC 11/09 IV 0836 Hydromorphone HCl 0.5 MG Q6P PRN 11/06 1745 DC 11/08 IV 1250 Labetalol HCl 450 MG TID 11/07 1000 AC 11/08 PO 2118 Losartan Potassium 100 MG DAILY 11/07 1000 AC 11/07 PO 1312 Metoclopramide HCl 10 MG ONCE ONE 11/09 0830 DC 11/09 IV 11/09 0831 0836 Ondansetron HCl 4 MG Q6P PRN 11/08 1315 AC 11/09 PO 0451 Ondansetron HCl 4 MG Q6P PRN 11/06 1745 DC 11/08 IV 0021 Oxycodone/ 1 TAB Q6P PRN 11/06 1745 AC Acetaminophen PO Impression/Plan Impression/Problem List Impression: 1.Hypertensive emergency/headache: On admission patient presented with severe headache and a blood pressure of 245 /150. She states that due to nausea and vomiting she did not take her home by mouth regimen. Her blood pressure has ranged from the 140s to the 220s range in the past 12 hours. Patient was taking her by mouth regimen initially, and claimed nausea and refused all her hypertensive medications. She received 2 of IV labetalol 20 mg her blood pressure trended down from 220s to the 180s. * Will control blood pressureand as per cardiology recommendation. * Pressure goals around 120-140 systolic we'll gradually titrate 2.ESRD on dialysis: On presentation she looked volume overload. He reported that for the few days prior to admission had dialysis machine was making alarm sounds. On admission potassium was 5.1. Symptom and sign of volume overload(as lower extremity edema and crackles over both lungs). * We will continue peritoneal dialysis as per nephrology. * Patient will be on 2 g sodium restriction without potassium restriction( peritoneal dialysis) * Patient has left pleural effusion, possibly from pertonial dialysis fluid leaking to left lung. Patient will be scheduled for IR thoracocentesis, we will send this bloody fluid for glucose. 3.Hx of CVA * Neuro checks * Continue aspirin/statin 4.Anxiety * Continue Xanax 5.Bilateral lower extremity edema left larger than right * Normal triplex scan without evidence of deep venous thrombosis involving the bilateral lower extremities. 6.Left flank pain * Acetaminophen, Percocet and Dilaudid to continue for pain control * see under end-stage renal disease Renal dialysis diet ALBS DVT prophylaxis Full code Problem List: 1. Contusion of right foot 2. End-stage renal disease on peritoneal dialysis 3. Flank pain 4. Vomiting 5. Hypertensive crisis Pain Ratin Tomorrow's Labs & Rationales: CBC and ICU bundle Plan DVT/Prophylaxis: mechanical, pharmacological
--- NOTE | 2016-11-09 08:30 | NUR ---
REC'D THE PT IN BED, C/0 7/10 SHARP CONSTANT PAIN TO THE L MID TO UPPER BACK. WILL ADMINISTER DILAUDID 0.5MG IV AT THIS TIME. IN ADDITION, THE PT C/O NAUSEA BUT IS NOT DUE FOR ZOFRAN UNTIL 1050. DISCUSSED WITH DR KRAFT AND THE PT WILL BE ADMIISTERED A ONE TIME DOSE OF REGALN 10MG IV. LESLEE. PT IS IN A FIRST DEGREE AVB WITHOUT ECTOPY PER THE CARDIOLOGY PHYSICIAN. BS TO THE R LUNG ARE CLEAR AND DIMINISHED THROUGHOUT THE L LUNG. PT'S O2 SAT IS 97% ON A 2LNC, NO RESP DISTRESS NOTED. ABD IS DISTENDED(DIALYSIS FLUID DWELLING) WITH NORMOACTIVE BOWEL SOUNDS. PERITONEAL DIALYSIS CATHETER IN PLACE W/O REDNESS OR SWELLING TO THE INSERTION SITE. PT DOES NOT VOID. SAMANTHA #[address] WITH HL AND PIVO DEVICE ATTACHED, FLUSHES EASILY.
--- NOTE | 2016-11-09 10:08 | PN- CRCU ---
Subjective HPI/Critical Care Issues: The patient is sleeping comfortably than arousable. Her blood pressure continues to fluctuate, however it is improved overall. There were no overnight events reported. Objective Current Medications: Current Medications Sig/Bryan Start time Last Medication Dose Route Stop Time Status Admin Acetaminophen 650 MG Q6P PRN 11/06 1745 AC PO Alprazolam 0.5 MG DAILY PRN 11/06 1800 AC 11/09 PO 11/13 1759 0017 Amlodipine Besylate 10 MG DAILY 11/08 1000 AC 11/09 PO 0952 Aspirin 81 MG DAILY 11/07 1000 AC 11/09 PO 0951 Calcitriol 0.75 MCG BID 11/06 2200 AC 11/09 PO 0950 Calcium Carbonate 2,000 MG BID 11/06 220 AC 11/09 PO 0951 Clonidine 1 PAT Q168 11/14 1000 AC TOP Epoetin Carlos 10,000 UNIT Q 2 WEEKS 11/20 1000 AC SC Hydralazine HCl 100 MG Q8 11/08 0915 AC 11/08 PO 2241 Hydromorphone HCl 1 MG ONCE ONE 11/08 2130 DC 11/08 IV 11/08 2131 2131 Hydromorphone HCl 0.5 MG Q4P PRN 11/08 1503 AC 11/09 IV 0836 Hydromorphone HCl 0.5 MG Q6P PRN 11/06 1745 DC 11/08 IV 1250 Labetalol HCl 450 MG TID 11/07 1000 AC 11/09 PO 0953 Lorazepam 2 MG ONE ONE 11/09 1000 DC 11/09 IV 11/09 1001 1001 Losartan Potassium 100 MG DAILY 11/07 1000 AC 11/09 PO 0951 Metoclopramide HCl 10 MG ONCE ONE 11/09 0830 DC 11/09 IV 11/09 0831 0836 Ondansetron HCl 4 MG Q6P PRN 11/08 1315 AC 11/09 PO 0451 Ondansetron HCl 4 MG Q6P PRN 11/06 1745 DC 11/08 IV 0021 Oxycodone/ 1 TAB Q6P PRN 11/06 1745 AC Acetaminophen PO Vital Signs & I&O Last 24 Hrs of Vitals and I&O: Vital Signs Date Time Temp Pulse Resp B/P Pulse O2 O2 Flow FiO2 Ox Delivery Rate 11/09 0853 98.8 71 20 188/98 02/13 0952 98.8 71 20 188/98 11/09 0952 98.8 71 20 188/98 11/09 0951 98.8 71 20 188/98 11/09 0610 59 15 141/75 11/09 0400 98 Nasal 2.0L Cannula 11/09 0000 95 Nasal 4.0L Cannula 11/08 2300 98.0 62 28 121/59 95 Nasal 4.0L Cannula 11/08 2241 65 20 177/93 11/08 2118 67 25 172/99 11/08 2000 95 Room Air Room Air 11/08 1600 96 Room Air 11/08 1600 99.0 66 20 146/74 96 Room Air 11/08 1400 68 158/88 11/08 1315 68 162/90 11/08 1200 68 166/90 11/08 1200 93 Room Air 11/08 1109 64 182/94 Intake & Output 11/09 1600 11/09 0800 11/09 0000 Intake Total 100 500 Output Total 0 1000 Balance 100 -500 Intake, Oral 100 500 Number 0 0 Bowel Movements Output, 0 1000 Dialysate Output, Urine 0 0 Physical Exam General Appearance Sleeping comfortably, then arousable Skin No rashes HEENT Atraumatic, PERRL Cardiovascular Regular Rate, Normal S1, Normal S2, No Murmurs Abdomen Crackles over both lungs with left being more than right Neurological No focality Extremities Improved edema Impression/Plan Impression/Plan Impression/Plan: 1. Hypertensive emergency - the patient's blood pressure is better controlled overall. 2. End-stage renal disease on peritoneal dialysis. 3. History of stroke following rapid drop of blood pressure. 4. Chronic pain. 5. History of anxiety. Recommendations: * Continue blood pressure control as recommended by cardiology. * We will continue to monitor the blood pressure closely to ensure it does not drop too rapidly. * Continue with pain control. * Peritoneal dialysis as per nephrology. * Continue Xanax for anxiety control. * Acetaminophen, Percocet and Dilaudid to continue for pain control. * DVT prophylaxis with Venodyne's. * Will downgrade when cleared by telemetry.
--- NOTE | 2016-11-09 11:05 | NUR ---
PT WAS BROUGHT DOWN FOR AN ULTRASOUND OF THE L LUNG WITH POSSIBLE THORACENTESIS AT 1015. PT WAS VERY ANXIOUS PRIOR TO GOING DOWN-MEDICATED WITH ATIVAN 2MG IV AT 1000. BP HAD ELEVATED TO 218/141 PRIOR TO ADMINISTRATION OF ATIVAN AND IMMEDIATELY AFTER ADMINISTRATION OF SCHEDULED PO ANTIHYPERTENSIVES. PER DR PERRY THERE ISNOT ENOUGH FLUID TO DRAIN. PT RETURNED TO ROOM AND AMBULATED SELF TO BED FROM STRETCHER W/O INCIDENT. BP HAD DECREASED TO 171/96 AT THIS TIME.
--- NOTE | 2016-11-09 15:32 | ULTRASOUND REPORT ---
EXAM: Limited chest ultrasound INDICATION: Pain with worsening left-sided pleural effusion. FINDINGS: Ultrasound imaging of the left chest revealed a tiny pleural effusion. No safe window to tap could be identified. Thoracentesis was therefore not performed. CONCLUSION: Tiny pleural effusion identified. No thoracentesis performed. Findings discussed with Linda Liao M.D.
[2016-11-09 16:00] VITALS: BP 126/62
--- NOTE | 2016-11-09 16:03 | PN- Nephrology ---
Assessment/Plan Assessment: 1. ESRD 2. Uncontrolled hypertension with hypertensive emergency -significantly improved 3. Left pleural effusion - rule out diaphragmatic leak of peritoneal fluid into chest; thoracentesis attempt unsuccessful Suggestion: 1. Arrange for CT scan of chest pain or E and post intraperitoneal contrast; details have been extensively discussed with Radiology and with medical house staff 2. Continue current peritoneal dialysis regimen 3. Continue current antihypertensive regimen for now Subjective Subjective: Patient continues to complain of episodic chest discomfort with movement. No other specific symptoms. Attempt at thoracentesis earlier today was unsuccessful. Blood pressure significantly improved. Objective Vital Signs and I&Os Vital Signs Date Time Temp Pulse Resp B/P Pulse O2 O2 Flow FiO2 Ox Delivery Rate 11/09 1410 97.6 56 16 124/66 11/09 1200 96 Nasal 2.0L Cannula 11/09 0953 98.8 71 20 188/98 11/09 0952 98.8 71 20 188/98 11/09 0952 98.8 71 20 188/98 11/09 0951 98.8 71 20 188/98 11/09 0800 97 Nasal 2.0L Cannula 11/09 0800 98.8 68 20 150/82 97 Nasal 2.0L Cannula 11/09 0610 59 15 141/75 11/09 0400 98 Nasal 2.0L Cannula 11/09 0000 95 Nasal 4.0L Cannula 11/08 2300 98.0 62 28 121/59 95 Nasal 4.0L Cannula 11/08 2241 65 20 177/93 11/08 2118 67 25 172/99 11/08 2000 95 Room Air Room Air 11/08 1600 96 Room Air 11/08 1600 99.0 66 20 146/74 96 Room Air Intake & Output 11/09 1600 11/09 0400 11/08 1600 11/08 0400 11/07 1600 11/07 0400 Intake Total 733 500 480 100 421 80 Output Total 1100 1000 4867 621 4114 -300 Balance -367 -500 -1120 -300 -2829 380 Intake, IV 333 41 20 Intake, Oral 400 500 480 100 380 60 Number 0 0 0 0 Bowel Movements Output, 1100 1000 3600 687 0470 -300 Dialysate Output, Urine 0 0 0 Patient 170 lb 165 lb Weight Physical Exam: General: Well-developed white female, slightly lethargic but easily arousable, in NAD Skin: No rash or jaundice HEENT: Conjunctivae pink, sclerae anicteric, mucous membranes dry Neck: Without masses or thyromegaly, no supraclavicular or cervical adenopathy Chest: Clear to P&A with diminished breath sounds at bases Heart: Regular rate and rhythm without S3 or rub Abdomen: Soft and nontender without palpable masses or organomegaly, PD catheter exit site clean and dry Extremities: Without cyanosis or edema Neuro: No focal findings, no asterixis or myoclonus Current Medications: Current Medications Sig/Bryan Start time Last Medication Dose Route Stop Time Status Admin Acetaminophen 650 MG Q6P PRN 11/06 1745 AC PO Alprazolam 0.5 MG DAILY PRN 11/06 1800 AC 11/09 PO 11/13 1759 0017 Amlodipine Besylate 10 MG DAILY 11/08 1000 AC 11/09 PO 0952 Aspirin 81 MG DAILY 11/07 1000 AC 11/09 PO 0951 Calcitriol 0.75 MCG BID 11/06 2200 AC 11/09 PO 0950 Calcium Carbonate 2,000 MG BID 11/06 2200 AC 11/09 PO 0951 Clonidine 1 PAT Q168 11/14 1000 AC TOP Epoetin Carlos 10,000 UNIT Q 2 WEEKS 11/20 1000 AC SC Hydralazine HCl 100 MG Q8 11/08 0915 AC 11/08 PO 2241 Hydromorphone HCl 1 MG ONCE ONE 11/08 2130 DC 11/08 IV 11/08 2131 2131 Hydromorphone HCl 0.5 MG Q4P PRN 11/08 1503 AC 11/09 IV 1253 Labetalol HCl 450 MG TID 11/07 1000 AC 11/09 PO 0953 Lorazepam 2 MG ONE ONE 11/09 1000 DC 11/09 IV 11/09 1001 1001 Losartan Potassium 100 MG DAILY 11/07 1000 AC 11/09 PO 0951 Metoclopramide HCl 10 MG ONCE ONE 11/09 0830 DC 11/09 IV 11/09 0831 0836 Ondansetron HCl 4 MG Q6P PRN 11/08 1315 AC 11/09 PO 1252 Oxycodone/ 1 TAB Q6P PRN 11/06 1745 AC Acetaminophen PO Results Pertinent Lab Results: Laboratory Tests 11/09 11/08 0445 0502 Chemistry Sodium (137 - 145 mmol/L) 135 L 135 L Potassium (3.5 - 5.1 mmol/L) 4.4 4.1 Chloride (98 - 107 mmol/L) 94 L 96 L Carbon Dioxide (22 - 30 mmol/L) 30 31 H Anion Gap (5 - 16) 11 9 BUN (7 - 17 mg/dL) 40 H 44 H Creatinine (0.5 - 1.0 mg/dL) 12.1 *H 13.1 *H Estimated GFR (>60 ml/min) 4 L 3 L Glucose (65 - 99 mg/dL) 85 113 H Calcium (8.4 - 10.2 mg/dL) 8.2 L 8.0 L Phosphorus (2.5 - 4.5 mg/dL) 5.6 H 4.8 H Magnesium (1.6 - 2.3 mg/dL) 1.7 1.6 Total Bilirubin (0.2 - 1.3 mg/dL) 0.5 0.4 AST (14 - 36 U/L) 9 L 4 L ALT (9 - 52 U/L) 27 22 Albumin (3.5 - 5.0 g/dL) 3.0 L 2.6 L Hematology CBC w Diff NO MAN DIFF REQ NO MAN DIFF REQ WBC (4.8 - 10.8 /CUMM) 7.9 7.7 RBC (4.20 - 5.40 /CUMM) 3.68 L 3.24 L Hgb (12.0 - 16.0 G/DL) 11.0 L 9.5 L Hct (37 - 47 %) 33.7 L 29.7 L MCV (81.0 - 99.0 FL) 91.5 91.7 MCH (27.0 - 31.0 PG) 29.9 29.2 RDW (11.5 - 14.5 %) 18.9 H 18.5 H Plt Count (130 - 400 /CUMM) 356 326 MPV (7.4 - 10.4 FL) 8.5 8.6 Gran % (42.2 - 75.2 %) 59.1 56.8 Lymphocytes % (20.5 - 51.1 %) 24.6 25.7 Monocytes % (1.7 - 9.3 %) 8.6 9.4 H Eosinophils % (0 - 5 %) 6.8 H 7.2 H Basophils % (0.0 - 2.0 %) 0.9 0.9 Absolute Granulocytes (1.4 - 6.5 /CUMM) 4.7 4.4 Absolute Lymphocytes (1.2 - 3.4 /CUMM) 1.9 2.0 Absolute Monocytes (0.10 - 0.60 /CUMM) 0.7 H 0.7 H Absolute Eosinophils (0.0 - 0.7 /CUMM) 0.5 0.6 Absolute Basophils (0.0 - 0.2 /CUMM) 0.1 0.1 PUBS MCHC (33.0 - 37.0 G/DL) 32.6 L 31.9 L 11/07 11/07 11/06 0040 0040 1820 Chemistry Sodium (137 - 145 mmol/L) 135 L Potassium (3.5 - 5.1 mmol/L) 5.0 Chloride (98 - 107 mmol/L) 95 L Carbon Dioxide (22 - 30 mmol/L) 28 Anion Gap (5 - 16) 12 BUN (7 - 17 mg/dL) 57 H Creatinine (0.5 - 1.0 mg/dL) 13.9 *H Estimated GFR (>60 ml/min) 3 L Glucose (65 - 99 mg/dL) 108 H Calcium (8.4 - 10.2 mg/dL) 7.6 L Phosphorus (2.5 - 4.5 mg/dL) 4.9 H Magnesium (1.6 - 2.3 mg/dL) 1.7 Total Bilirubin (0.2 - 1.3 mg/dL) 0.5 AST (14 - 36 U/L) 7 L ALT (9 - 52 U/L) 21 Troponin I (< 0.11 ng/ml) 0.03 0.05 Albumin (3.5 - 5.0 g/dL) 3.1 L Hematology CBC w Diff MAN DIFF ORDERED WBC (4.8 - 10.8 /CUMM) 8.9 RBC (4.20 - 5.40 /CUMM) 3.50 L Hgb (12.0 - 16.0 G/DL) 10.3 L Hct (37 - 47 %) 31.5 L MCV (81.0 - 99.0 FL) 90.2 MCH (27.0 - 31.0 PG) 29.6 RDW (11.5 - 14.5 %) 18.2 H Plt Count (130 - 400 /CUMM) 377 MPV (7.4 - 10.4 FL) 9.3 Gran % (42.2 - 75.2 %) 68.4 Lymphocytes % (20.5 - 51.1 %) 17.9 L Monocytes % (1.7 - 9.3 %) 5.9 Eosinophils % (0 - 5 %) 6.9 H Basophils % (0.0 - 2.0 %) 0.9 Absolute Granulocytes (1.4 - 6.5 /CUMM) 6.1 Segmented Neutrophils (42.2 - 75.2 %) 51 Absolute Lymphocytes (1.2 - 3.4 /CUMM) 1.6 Lymphocytes (20.5 - 51.1 %) 29 Monocytes (1.7 - 9.3 %) 16 H Absolute Monocytes (0.10 - 0.60 /CUMM) 0.5 Eosinophils (0 - 5.0 %) 4 Absolute Eosinophils (0.0 - 0.7 /CUMM) 0.6 Absolute Basophils (0.0 - 0.2 /CUMM) 0.1 Nucleated RBCs (0.0 - 0.0 /100WBC) 1 H Platelet Estimate (ADEQUATE) ADEQUATE Polychromasia 1+ Hypochromic-Microcytic 1+ Poikilocytosis 2+ Ovalocytes 1+ Stomatocytes FEW Elliptocytes FEW PUBS MCHC (33.0 - 37.0 G/DL) 32.8 L Other Body Source Fld Total RBCs Counted (%) 100
--- NOTE | 2016-11-09 17:03 | PN- Cardiology ---
Subjective Subjective: The patient reports that she is feeling well. Blood pressure dropped to the 120s systolic, and hydralazine has been held so far today. No chest pain. No shortness of breath. No diaphoresis. No palpitations. Objective Vital Signs and I&Os Vital Signs Date Time Temp Pulse Resp B/P Pulse O2 O2 Flow FiO2 Ox Delivery Rate 11/09 1410 97.6 56 16 124/66 11/09 1200 96 Nasal 2.0L Cannula 11/09 0952 98.8 71 20 188/98 11/09 0952 98.8 71 20 188/98 11/09 0951 98.8 71 20 188/98 11/09 0800 97 Nasal 2.0L Cannula 11/09 0800 98.8 68 20 150/82 97 Nasal 2.0L Cannula 11/09 0610 59 15 141/75 11/09 0400 98 Nasal 2.0L Cannula 11/09 0000 95 Nasal 4.0L Cannula 11/08 2300 98.0 62 28 121/59 95 Nasal 4.0L Cannula 11/08 2241 65 20 177/93 11/08 2118 67 25 172/99 11/08 2000 95 Room Air Room Air Intake & Output 11/09 1600 11/09 0800 11/09 0000 11/08 1600 11/08 0800 11/08 0000 Intake Total 633 100 500 480 100 Output Total 1100 0 7250 162 9291 400 Balance -467 100 -500 280 -1400 -300 Intake, IV 333 Intake, Oral 300 100 500 480 100 Number 0 0 0 0 Bowel Movements Output, 1100 0 7454 484 7480 400 Dialysate Output, Urine 0 0 0 Physical Exam: Gen: NAD HEENT: normal Lungs: Scattered rhonchi, normal resp. effort Heart: RRR, S1, S2, 2/6 systolic murmur Abdomen: Soft, nontender, no masses Extremities: No clubbing, cyanosis, or edema. Neuro: Alert and oriented x 3, cranial nerves intact Current Medications: Current Medications Sig/Bryan Start time Last Medication Dose Route Stop Time Status Admin Acetaminophen 650 MG Q6P PRN 11/06 1745 AC PO Alprazolam 0.5 MG DAILY PRN 11/06 1800 AC 11/09 PO 11/13 1759 0017 Amlodipine Besylate 10 MG DAILY 11/08 1000 AC 11/09 PO 0952 Aspirin 81 MG DAILY 11/07 1000 AC 11/09 PO 0951 Calcitriol 0.75 MCG BID 11/06 2199 AC 11/09 PO 0950 Calcium Carbonate 2,000 MG BID 11/06 2199 AC 11/09 PO 0951 Clonidine 1 PAT Q168 11/14 1000 AC TOP Epoetin Carlos 10,000 UNIT Q 2 WEEKS 11/20 1000 AC SC Hydralazine HCl 100 MG Q8 11/08 0915 AC 11/08 PO 2241 Hydromorphone HCl 1 MG ONCE ONE 11/08 2130 DC 11/08 IV 11/08 2130 213 Hydromorphone HCl 0.5 MG Q4P PRN 11/08 1503 AC 11/09 IV 1253 Labetalol HCl 200 MG BID 11/09 2199 AC PO Labetalol HCl 450 MG TID 11/07 1000 DC 11/09 PO 0952 Lorazepam 2 MG ONE ONE 11/09 1000 DC 11/09 IV 11/09 1001 1001 Losartan Potassium 100 MG DAILY 11/07 1000 AC 11/09 PO 0951 Metoclopramide HCl 10 MG ONCE ONE 11/09 0830 DC 11/09 IV 11/09 0831 0836 Ondansetron HCl 4 MG Q6P PRN 11/08 1315 AC 11/09 PO 1252 Oxycodone/ 1 TAB Q6P PRN 11/06 1745 AC Acetaminophen PO Results Last 48 Hrs of Labs/Mics: Laboratory Tests 11/09/16 0445: Anion Gap 11, Estimated GFR 4 L, Glucose 85, Calcium 8.2 L, Phosphorus 5.6 H, Magnesium 1.7, Total Bilirubin 0.5, AST 9 L, ALT 27, Albumin 3.0 L, CBC w Diff NO MAN DIFF REQ, RBC 3.68 L, MCV 91.5, MCH 29.9, RDW 18.9 H, MPV 8.5, Gran % 59.1, Lymphocytes % 24.6, Monocytes % 8.6, Eosinophils % 6.8 H, Basophils % 0.9 , Absolute Granulocytes 4.7, Absolute Lymphocytes 1.9, Absolute Monocytes 0.7 H , Absolute Eosinophils 0.5, Absolute Basophils 0.1, PUBS MCHC 32.6 L 11/08/16 0502: Anion Gap 9, Estimated GFR 3 L, Glucose 113 H, Calcium 8.0 L, Phosphorus 4.8 H, Magnesium 1.6, Total Bilirubin 0.4, AST 4 L, ALT 22, Albumin 2.6 L, CBC w Diff NO MAN DIFF REQ, RBC 3.24 L, MCV 91.7, MCH 29.2, RDW 18.5 H, MPV 8.6, Gran % 56.8, Lymphocytes % 25.7, Monocytes % 9.4 H, Eosinophils % 7.2 H, Basophils % 0.9, Absolute Granulocytes 4.4, Absolute Lymphocytes 2.0, Absolute Monocytes 0.7 H, Absolute Eosinophils 0.6, Absolute Basophils 0.1, PUBS MCHC 31.9 L Recent Imaging Studies: Chest x-ray: Slight interval increase left-sided pleural effusion with increasing associated infiltrate or atelectasis. Vascular congestion and probable mild interstitial edema. Assessment/Plan Assessment/Plan Assessment: 1. Hypertensive Urgency 2. ESRD on peritoneal dialysis 3. Prior CVA 4. 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 Mild normocytic anemia 6. Lower extremity edema 7. Severe LVH with mild diastolic dysfunction 8. Mild to moderate TR with mild pulmonary HTN Plan: * Decrease labetalol to 200 milligrams p.o. b.i.d. to avoid hypotension * Continue close monitoring of blood pressure. Continue telemetry? Yes
[2016-11-09 23:00] VITALS: BP 132/70
[2016-11-10 05:24] LABS: ABSOLUTE BASOPHIL COUNT 0.1 /CUMM (0.0-0.2); ABSOLUTE EOSINOPHIL COUNT 0.5 /CUMM (0.0-0.7); ABSOLUTE GRANULOCYTE CT 7.1 /CUMM (1.4-6.5); ABSOLUTE LYMPH COUNT 1.2 /CUMM (1.2-3.4); ABSOLUTE MONOCYTE COUNT 0.9 /CUMM (0.10-0.60); BASOPHIL % 0.8 % (0.0-2.0); EOSINOPHIL % 4.7 % (0-5); GRANULOCYTE % 72.7 % (42.2-75.2); HEMATOCRIT 33.1 % (37-47); MEAN CORPUSCULAR HGB 29.8 PG (27.0-31.0); MEAN CORPUSCULAR HGB CONC 32.8 G/DL (33.0-37.0); MEAN CORPUSCULAR VOLUME 90.9 FL (81.0-99.0); MEAN PLATELET VOLUME 8.4 FL (7.4-10.4); PLATELET COUNT 336 /CUMM (130-400); RBC DISTRIBUTION WIDTH 19.1 % (11.5-14.5); RED BLOOD CELL CT 3.64 /CUMM (4.20-5.40); WHITE BLOOD CELL COUNT 9.7 /CUMM (4.8-10.8)
--- NOTE | 2016-11-10 07:00 | PN- Resident CRCU ---
Subjective HPI/CRCU Issues: Labetalol was decreased to 200 mg PO BID yesterday due to hypotension and patient's evening dose was held. Patient seen and examined this morning. She is sleeping comfortably in bed but is arousable. She reports feeling well and offers no complaints. Objective Vital Signs & I&O Last 8 Hrs of Vitals and I&O: Intake & Output 11/10 0800 Intake Total Output Total -100 Balance 100 Output, -100 Dialysate Exam General Appearance: well developed/nourished, no apparent distress, alert, awake , comfortable, oriented x3 Ears, Nose, Throat: moist mucus membranes Respiratory: few crackles scattered throughout bilateral lung gage Cardiovascular: regular rate/rhythm, normal S1 and S2, no murmurs, rubs or gallops Gastrointestinal: soft, non-tender, positive bowel sounds Extremities: no edema Skin: intact, normal color, warm/dry Current Medications: Current Medications Sig/Bryan Start time Last Medication Dose Route Stop Time Status Admin Acetaminophen 650 MG Q6P PRN 11/06 1745 AC PO Alprazolam 0.5 MG DAILY PRN 11/06 1800 AC 11/09 PO 11/13 1759 0017 Amlodipine Besylate 10 MG DAILY 11/08 1000 AC 11/09 PO 0952 Aspirin 81 MG DAILY 11/07 1000 AC 11/09 PO 0951 Calcitriol 0.75 MCG BID 11/06 2199 AC 11/09 PO 211 Calcium Carbonate 2,000 MG BID 11/06 2200 AC 11/09 PO 0951 Clonidine 1 PAT Q168 11/14 1000 AC TOP Epoetin Carlos 10,000 UNIT Q 2 WEEKS 11/20 1000 AC SC Hydralazine HCl 100 MG Q8 11/08 0915 AC 11/09 PO 2116 Hydromorphone HCl 0.5 MG Q4P PRN 11/08 1503 AC 11/09 IV 2138 Labetalol HCl 200 MG BID 11/09 2200 AC PO Labetalol HCl 450 MG TID 11/07 1000 DC 11/09 PO 0952 Lorazepam 2 MG ONE ONE 11/09 1000 DC 11/09 IV 11/09 1001 1001 Losartan Potassium 100 MG DAILY 11/07 1000 AC 11/09 PO 0951 Metoclopramide HCl 10 MG ONCE ONE 11/09 0830 DC 11/09 IV 11/09 0831 0836 Ondansetron HCl 4 MG Q6P PRN 11/08 1315 AC 11/09 PO 1252 Oxycodone/ 1 TAB Q6P PRN 11/06 1745 AC Acetaminophen PO Results Results: Laboratory Tests 11/10 11/09 11/09 0500 1002 1000 Chemistry Sodium (137 - 145 mmol/L) 135 L Potassium (3.5 - 5.1 mmol/L) 4.5 Chloride (98 - 107 mmol/L) 93 L Carbon Dioxide (22 - 30 mmol/L) 31 H Anion Gap (5 - 16) 11 BUN (7 - 17 mg/dL) 35 H Creatinine (0.5 - 1.0 mg/dL) 11.5 *H Estimated GFR (>60 ml/min) 4 L Glucose (65 - 99 mg/dL) 90 Cancelled Calcium (8.4 - 10.2 mg/dL) 8.2 L Phosphorus (2.5 - 4.5 mg/dL) 5.4 H Magnesium (1.6 - 2.3 mg/dL) 1.6 Total Bilirubin (0.2 - 1.3 mg/dL) 0.5 AST (14 - 36 U/L) 5 L ALT (9 - 52 U/L) 22 Lactate Dehydrogenase Cancelled Albumin (3.5 - 5.0 g/dL) 2.7 L Hematology CBC w Diff NO MAN DIFF REQ WBC (4.8 - 10.8 /CUMM) 9.7 RBC (4.20 - 5.40 /CUMM) 3.64 L Hgb (12.0 - 16.0 G/DL) 10.9 L Hct (37 - 47 %) 33.1 L MCV (81.0 - 99.0 FL) 90.9 MCH (27.0 - 31.0 PG) 29.8 RDW (11.5 - 14.5 %) 19.1 H Plt Count (130 - 400 /CUMM) 336 MPV (7.4 - 10.4 FL) 8.4 Gran % (42.2 - 75.2 %) 72.7 Lymphocytes % (20.5 - 51.1 %) 12.4 L Monocytes % (1.7 - 9.3 %) 9.4 H Eosinophils % (0 - 5 %) 4.7 Basophils % (0.0 - 2.0 %) 0.8 Absolute Granulocytes (1.4 - 6.5 /CUMM) 7.1 H Absolute Lymphocytes (1.2 - 3.4 /CUMM) 1.2 Absolute Monocytes (0.10 - 0.60 /CUMM) 0.9 H Absolute Eosinophils (0.0 - 0.7 /CUMM) 0.5 Absolute Basophils (0.0 - 0.2 /CUMM) 0.1 PUBS MCHC (33.0 - 37.0 G/DL) 32.8 L Other Body Source Fluid WBC Cancelled Fld Total RBCs Counted Cancelled 11/09 11/09 1000 UNK Chemistry Albumin Cancelled Other Body Source Fluid Glucose Cancelled Fluid Albumin Cancelled Fluid LDH Cancelled Fluid Amylase Cancelled Impression/Plan Impression/Problem List Impression: 31 y/o F with PMHx of ESRD on peritoneal dialysis, CVA with residual left-sided weakness and uncontrolled HTN with multiple admissions for hypertensive urgency and emergency who presents with hypertensive emergency. Problem List: 1. Hypertensive emergency 2. Pleural effusion, left 3. End-stage renal disease on peritoneal dialysis Pain Ratin Tomorrow's Labs & Rationales: CBC and ICU bundle (ICU patient) Plan Respiratory: #Left-sided pleural effusion: Differential includes fluid overload or diaphragmatic leak of peritoneal fluid into the pleural space. Diagnostic thoracentesis was was unsuccessful. Currently denies shortness of breath or respiratory distress. Was weaned off supplemental oxygen last night and currently satting well on room air. * Proceed with CT Abdomen/Pelvis after injecting of iodinated contrast into the peritoneal cavity during peritoneal dialysis today to see if contrast has leaked into the pleural space. * Pre-medicate with 40 mg of IV Solumedrol and 50 mg of IV Benadryl as patient is allergic to contrast. * Provide supplemental oxygen as needed to keep SpO2 > 92%. Infectious Diseases: Afebrile and without leukocytosis. No signs or symptoms of infection. Cardiovascular: #Hypertensive emergency: Labetalol was decreased to 200 mg PO BID as patient was hypotensive. Evening dose of labetalol was held last night as blood pressure had dropped down to 119/65. * Cardiology following. Appreciate their recs. * Continue blood pressure control per cardiology. * Continue to closely monitor blood pressure to ensure that it does not drop too fast. Maintain SBP around 120-140. * Continue amlodipine 10 mg PO daily, clonidine patch, labetalol 200 mg PO BID and losartan 100 mg PO QD. Hematology: #Anemia of CKD: H/H stable. Gets injections of 40,000 of Epogen units every other week. * Continue [id number] Epogen injections. Next one scheduled on November 20. Metabolic: #ESRD on peritoneal dialysis: * Nephrology following. Appreciate their recs. * Peritoneal dialysis per nephrology. Alimentary: 2 g sodium diet Neurological: AAO x3. No issues. History of CVA in January 2013 with residual left-sided weakness. Skin: No issues. DVT/Prophylaxis: mechanical, pharmacological Code Status: Full Code
[2016-11-10 08:00] VITALS: BP 182/84
--- NOTE | 2016-11-10 09:14 | PN- CRCU ---
Subjective HPI/Critical Care Issues: The patient is awake and alert. Her blood pressure continues to fluctuate however the trend is better overall. She is nothing by mouth waiting for a CT scan of the abdomen with contrast instillation into the peritoneal dialysis catheter to determine if she has a leak into the left pleural space. Objective Current Medications: Current Medications Sig/Bryan Start time Last Medication Dose Route Stop Time Status Admin Acetaminophen 650 MG Q6P PRN 11/06 1745 AC PO Alprazolam 0.5 MG DAILY PRN 11/06 1800 AC 11/09 PO 11/13 1759 0017 Amlodipine Besylate 10 MG DAILY 11/08 1000 AC 11/09 PO 0952 Aspirin 81 MG DAILY 11/07 1000 AC 11/09 PO 0951 Calcitriol 0.75 MCG BID 11/06 2200 AC 11/09 PO 211 Calcium Carbonate 2,000 MG BID 11/06 2200 AC 11/09 PO 0951 Clonidine 1 PAT Q168 11/14 1000 AC TOP Epoetin Carlos 10,000 UNIT Q 2 WEEKS 11/20 1000 AC SC Hydralazine HCl 100 MG Q8 11/08 0915 AC 11/09 PO 2116 Hydromorphone HCl 0.5 MG Q4P PRN 11/08 1503 AC 11/09 IV 2138 Labetalol HCl 200 MG BID 11/09 2200 AC PO Labetalol HCl 450 MG TID 11/07 1000 DC 11/09 PO 0952 Lorazepam 2 MG ONE ONE 11/09 1000 DC 11/09 IV 11/09 1001 1001 Losartan Potassium 100 MG DAILY 11/07 1000 AC 11/09 PO 0951 Ondansetron HCl 4 MG Q6P PRN 11/08 1315 AC 11/10 PO 0830 Oxycodone/ 1 TAB Q6P PRN 11/06 1745 AC Acetaminophen PO Vital Signs & I&O Last 24 Hrs of Vitals and I&O: Vital Signs Date Time Temp Pulse Resp B/P Pulse O2 O2 Flow FiO2 Ox Delivery Rate 11/10 0548 160/90 11/09 2300 98.0 64 24 132/70 94 Room Air 11/09 2238 119/65 11/09 2116 146/88 11/09 1600 92 Nasal 2.0L Cannula 11/09 1600 98.0 61 21 126/62 92 Nasal 2.0L Cannula 11/09 1410 97.6 56 16 124/66 11/09 1200 96 Nasal 2.0L Cannula 11/09 0952 98.8 71 20 188/98 11/09 0952 98.8 71 20 188/98 11/09 0951 98.8 71 20 188/98 Intake & Output 11/10 1600 11/10 0800 11/10 0000 Intake Total 270 Output Total -100 700 Balance 100 -430 Intake, Oral 270 Output, -100 700 Dialysate Physical Exam General Appearance Sleeping comfortably, then arousable Skin No rashes HEENT Atraumatic, PERRL Cardiovascular Regular Rate, Normal S1, Normal S2, No Murmurs Abdomen Crackles over both lungs with left being more than right Neurological No focality Extremities Improved edema Results Last 24 Hrs of Lab Results: Laboratory Tests 11/10/16 0500: Anion Gap 11, Estimated GFR 4 L, Glucose 90, Calcium 8.2 L, Phosphorus 5.4 H, Magnesium 1.6, Total Bilirubin 0.5, AST 5 L, ALT 22, Albumin 2.7 L, CBC w Diff NO MAN DIFF REQ, RBC 3.64 L, MCV 90.9, MCH 29.8, RDW 19.1 H, MPV 8.4, Gran % 72.7, Lymphocytes % 12.4 L, Monocytes % 9.4 H, Eosinophils % 4.7, Basophils % 0.8, Absolute Granulocytes 7.1 H, Absolute Lymphocytes 1.2, Absolute Monocytes 0.9 H, Absolute Eosinophils 0.5, Absolute Basophils 0.1, PUBS MCHC 32.8 L 11/09/16 1002: Glucose Cancelled, Lactate Dehydrogenase Cancelled 11/09/16 1000: Fluid WBC Cancelled, Fld Total RBCs Counted Cancelled 11/09/16 1000: Fluid Amylase Cancelled 11/09/16 1000: Albumin Cancelled, Fluid Glucose Cancelled, Fluid Albumin Cancelled, Fluid LDH Cancelled Impression/Plan Impression/Plan Impression/Plan: 1. Hypertensive emergency - the patient's blood pressure is better controlled overall. 2. End-stage renal disease on peritoneal dialysis. 3. History of stroke following rapid drop of blood pressure. 4. Chronic pain. 5. History of anxiety. Recommendations: * Continue blood pressure control as recommended by cardiology. * Await CT scan of the abdomen and pelvis with contrast to determine if there is a leak in the pleural space. * Continue with pain control. * Peritoneal dialysis as per nephrology. * Continue Xanax for anxiety control. * Acetaminophen, Percocet and Dilaudid to continue for pain control. * DVT prophylaxis with Venodyne's. * Will downgrade when cleared by telemetry. Code Status: Full Code
--- NOTE | 2016-11-10 11:27 | NUR ---
Patient is alert and oriented x's 3, able to follow commands and respond appropriately. NSR on tele monitor, HR= 70's. sbp: 140-180's po medications given per orders. Medications to be held per parameters- On rom air. lungs clear O2 sat 95-98%. Abdomen is soft with + bowel sounds. She tolerated breakfast and is now NPO for a CT scan that is scheduled for 1330. Peritoneal dialysis every 4 hours. Site appears WNL- Skin is intact and no areas of presure injury are noted. Medicated with IV dilaudid prn for left flank pain. IV solumedrol also given and benadryl due at 1230 for an allergy to contrast- Dialysis nurse to infuse contrast solution while in CT scan- this RN spoke with Giana from [facility] who stated that the patient to have on scan while empty then the contrast infusion will be infused thru her peritoneal dialysis port- an additional CT to be done then and then 1 hour after. The contrast solution will then be drained after the final CT scan and her normal dialysis solution to be indwelled. This was discussed with house staff, Dr. Bello. CT scan and Delaney Torres- Patient verbalized understanding of POC. Will continue to closely monitor patient.
--- NOTE | 2016-11-10 12:21 | PN- Nephrology ---
Assessment/Plan Assessment: 1. ESRD 2. Uncontrolled hypertension with hypertensive emergency -significantly improved 3. Left pleural effusion - rule out diaphragmatic leak of peritoneal fluid into chest; thoracentesis attempt unsuccessful; for CT scan of chest today with intraperitoneal contrast Suggestion: 1. Proceed with imaging study today as discussed, including pre-medicating for possible contrast media reaction 2. Continue current peritoneal dialysis regimen 3. Continue antihypertensive regimen per Cardiology Subjective Subjective: Patient looks and feels better today. She is anxious about her upcoming study, especially since she has had a reaction to contrast media in the past (hives). Objective Vital Signs and I&Os Vital Signs Date Time Temp Pulse Resp B/P Pulse O2 O2 Flow FiO2 Ox Delivery Rate 11/10 1150 72 164/94 11/10 1031 78 162/100 11/10 0922 77 172/106 11/10 0800 99.2 74 20 182/84 97 Room Air 11/10 0800 97 Room Air 11/10 0548 160/90 11/09 2300 98.0 64 24 132/70 94 Room Air 11/09 2238 119/65 11/09 2116 146/88 11/09 1600 92 Nasal 2.0L Cannula 11/09 1600 98.0 61 21 126/62 92 Nasal 2.0L Cannula 11/09 1410 97.6 56 16 124/66 Intake & Output 11/10 1600 11/10 0400 11/09 1600 11/09 0400 11/08 1600 11/08 0400 Intake Total 270 733 500 480 100 Output Total 984 040 5831 1000 1600 400 Balance -600 -130 -367 -500 -1120 -300 Intake, IV 333 Intake, Oral 270 400 500 480 100 Number 0 0 0 0 Bowel Movements Output, 619 203 8758 1000 1600 400 Dialysate Output, Urine 0 0 0 Patient 169 lb Weight Physical Exam: General: Well-developed white female, slightly lethargic but easily arousable, in NAD Skin: No rash or jaundice HEENT: Conjunctivae pink, sclerae anicteric, mucous membranes dry Neck: Without masses or thyromegaly, no supraclavicular or cervical adenopathy Chest: Clear to P&A with diminished breath sounds at left base Heart: Regular rate and rhythm without S3 or rub Abdomen: Soft and nontender without palpable masses or organomegaly, PD catheter exit site clean and dry Extremities: Without cyanosis or edema Neuro: No focal findings, no asterixis or myoclonus Current Medications: Current Medications Sig/Bryan Start time Last Medication Dose Route Stop Time Status Admin Acetaminophen 650 MG Q6P PRN 11/06 1745 AC PO Alprazolam 0.5 MG DAILY PRN 11/06 1800 AC 11/10 PO 11/13 1759 1153 Amlodipine Besylate 10 MG DAILY 11/08 1000 AC 11/10 PO 0922 Aspirin 81 MG DAILY 11/07 1000 AC 11/10 PO 0922 Calcitriol 0.75 MCG BID 11/06 2200 AC 11/10 PO 0923 Calcium Carbonate 2,000 MG BID 11/06 2200 AC 11/09 PO 0951 Clonidine 1 PAT Q168 11/14 1000 AC TOP Diphenhydramine HCl 50 MG ONCE ONE 11/10 1230 AC IV 11/10 1231 Epoetin Carlos 10,000 UNIT Q 2 WEEKS 11/20 1000 AC SC Hydralazine HCl 100 MG Q8 11/08 0915 AC 11/09 PO 2116 Hydromorphone HCl 0.5 MG Q4P PRN 11/08 1503 AC 11/10 IV 0947 Labetalol HCl 200 MG BID 11/09 2200 AC 11/10 PO 1150 Labetalol HCl 450 MG TID 11/07 1000 DC 11/09 PO 0952 Losartan Potassium 100 MG DAILY 11/07 1000 AC 11/10 PO 1031 Methylprednisolone 40 MG ONCE ONE 11/10 1030 DC 11/10 IV 11/10 1031 1031 Ondansetron HCl 4 MG Q6P PRN 11/08 1315 AC 11/10 PO 0830 Oxycodone/ 1 TAB Q6P PRN 11/06 1745 AC Acetaminophen PO Results Pertinent Lab Results: Laboratory Tests 11/10 11/09 11/09 0500 1002 1000 Chemistry Sodium (137 - 145 mmol/L) 135 L Potassium (3.5 - 5.1 mmol/L) 4.5 Chloride (98 - 107 mmol/L) 93 L Carbon Dioxide (22 - 30 mmol/L) 31 H Anion Gap (5 - 16) 11 BUN (7 - 17 mg/dL) 35 H Creatinine (0.5 - 1.0 mg/dL) 11.5 *H Estimated GFR (>60 ml/min) 4 L Glucose (65 - 99 mg/dL) 90 Cancelled Calcium (8.4 - 10.2 mg/dL) 8.2 L Phosphorus (2.5 - 4.5 mg/dL) 5.4 H Magnesium (1.6 - 2.3 mg/dL) 1.6 Total Bilirubin (0.2 - 1.3 mg/dL) 0.5 AST (14 - 36 U/L) 5 L ALT (9 - 52 U/L) 22 Lactate Dehydrogenase Cancelled Albumin (3.5 - 5.0 g/dL) 2.7 L Hematology CBC w Diff NO MAN DIFF REQ WBC (4.8 - 10.8 /CUMM) 9.7 RBC (4.20 - 5.40 /CUMM) 3.64 L Hgb (12.0 - 16.0 G/DL) 10.9 L Hct (37 - 47 %) 33.1 L MCV (81.0 - 99.0 FL) 90.9 MCH (27.0 - 31.0 PG) 29.8 RDW (11.5 - 14.5 %) 19.1 H Plt Count (130 - 400 /CUMM) 336 MPV (7.4 - 10.4 FL) 8.4 Gran % (42.2 - 75.2 %) 72.7 Lymphocytes % (20.5 - 51.1 %) 12.4 L Monocytes % (1.7 - 9.3 %) 9.4 H Eosinophils % (0 - 5 %) 4.7 Basophils % (0.0 - 2.0 %) 0.8 Absolute Granulocytes (1.4 - 6.5 /CUMM) 7.1 H Absolute Lymphocytes (1.2 - 3.4 /CUMM) 1.2 Absolute Monocytes (0.10 - 0.60 /CUMM) 0.9 H Absolute Eosinophils (0.0 - 0.7 /CUMM) 0.5 Absolute Basophils (0.0 - 0.2 /CUMM) 0.1 PUBS MCHC (33.0 - 37.0 G/DL) 32.8 L Other Body Source Fluid WBC Cancelled Fld Total RBCs Counted Cancelled 11/09 11/09 11/09 1000 UNK 0445 Chemistry Sodium (137 - 145 mmol/L) 135 L Potassium (3.5 - 5.1 mmol/L) 4.4 Chloride (98 - 107 mmol/L) 94 L Carbon Dioxide (22 - 30 mmol/L) 30 Anion Gap (5 - 16) 11 BUN (7 - 17 mg/dL) 40 H Creatinine (0.5 - 1.0 mg/dL) 12.1 *H Estimated GFR (>60 ml/min) 4 L Glucose (65 - 99 mg/dL) 85 Calcium (8.4 - 10.2 mg/dL) 8.2 L Phosphorus (2.5 - 4.5 mg/dL) 5.6 H Magnesium (1.6 - 2.3 mg/dL) 1.7 Total Bilirubin (0.2 - 1.3 mg/dL) 0.5 AST (14 - 36 U/L) 9 L ALT (9 - 52 U/L) 27 Albumin (3.5 - 5.0 g/dL) Cancelled 3.0 L Hematology CBC w Diff NO MAN DIFF REQ WBC (4.8 - 10.8 /CUMM) 7.9 RBC (4.20 - 5.40 /CUMM) 3.68 L Hgb (12.0 - 16.0 G/DL) 11.0 L Hct (37 - 47 %) 33.7 L MCV (81.0 - 99.0 FL) 91.5 MCH (27.0 - 31.0 PG) 29.9 RDW (11.5 - 14.5 %) 18.9 H Plt Count (130 - 400 /CUMM) 356 MPV (7.4 - 10.4 FL) 8.5 Gran % (42.2 - 75.2 %) 59.1 Lymphocytes % (20.5 - 51.1 %) 24.6 Monocytes % (1.7 - 9.3 %) 8.6 Eosinophils % (0 - 5 %) 6.8 H Basophils % (0.0 - 2.0 %) 0.9 Absolute Granulocytes (1.4 - 6.5 /CUMM) 4.7 Absolute Lymphocytes (1.2 - 3.4 /CUMM) 1.9 Absolute Monocytes (0.10 - 0.60 /CUMM) 0.7 H Absolute Eosinophils (0.0 - 0.7 /CUMM) 0.5 Absolute Basophils (0.0 - 0.2 /CUMM) 0.1 PUBS MCHC (33.0 - 37.0 G/DL) 32.6 L Other Body Source Fluid Glucose Cancelled Fluid Albumin Cancelled Fluid LDH Cancelled Fluid Amylase Cancelled 11/08 0502 Chemistry Sodium (137 - 145 mmol/L) 135 L Potassium (3.5 - 5.1 mmol/L) 4.1 Chloride (98 - 107 mmol/L) 96 L Carbon Dioxide (22 - 30 mmol/L) 31 H Anion Gap (5 - 16) 9 BUN (7 - 17 mg/dL) 44 H Creatinine (0.5 - 1.0 mg/dL) 13.1 *H Estimated GFR (>60 ml/min) 3 L Glucose (65 - 99 mg/dL) 113 H Calcium (8.4 - 10.2 mg/dL) 8.0 L Phosphorus (2.5 - 4.5 mg/dL) 4.8 H Magnesium (1.6 - 2.3 mg/dL) 1.6 Total Bilirubin (0.2 - 1.3 mg/dL) 0.4 AST (14 - 36 U/L) 4 L ALT (9 - 52 U/L) 22 Albumin (3.5 - 5.0 g/dL) 2.6 L Hematology CBC w Diff NO MAN DIFF REQ WBC (4.8 - 10.8 /CUMM) 7.7 RBC (4.20 - 5.40 /CUMM) 3.24 L Hgb (12.0 - 16.0 G/DL) 9.5 L Hct (37 - 47 %) 29.7 L MCV (81.0 - 99.0 FL) 91.7 MCH (27.0 - 31.0 PG) 29.2 RDW (11.5 - 14.5 %) 18.5 H Plt Count (130 - 400 /CUMM) 326 MPV (7.4 - 10.4 FL) 8.6 Gran % (42.2 - 75.2 %) 56.8 Lymphocytes % (20.5 - 51.1 %) 25.7 Monocytes % (1.7 - 9.3 %) 9.4 H Eosinophils % (0 - 5 %) 7.2 H Basophils % (0.0 - 2.0 %) 0.9 Absolute Granulocytes (1.4 - 6.5 /CUMM) 4.4 Absolute Lymphocytes (1.2 - 3.4 /CUMM) 2.0 Absolute Monocytes (0.10 - 0.60 /CUMM) 0.7 H Absolute Eosinophils (0.0 - 0.7 /CUMM) 0.6 Absolute Basophils (0.0 - 0.2 /CUMM) 0.1 PUBS MCHC (33.0 - 37.0 G/DL) 31.9 L
--- NOTE | 2016-11-10 14:31 | PN- Cardiology ---
Subjective Subjective: Feeling well. No chest pain. The patient's. No shortness of breath. Blood pressure became low yesterday, and labetalol dose was decreased. Objective Vital Signs and I&Os Vital Signs Date Time Temp Pulse Resp B/P Pulse O2 O2 Flow FiO2 Ox Delivery Rate 11/10 1427 74 132/74 11/10 1150 72 164/94 11/10 1031 78 162/100 11/10 0922 77 172/106 11/10 0800 99.2 74 20 182/84 97 Room Air 11/10 0800 97 Room Air 11/10 0548 160/90 11/09 2300 98.0 64 24 132/70 94 Room Air 11/09 2238 119/65 11/09 2116 146/88 11/09 1600 92 Nasal 2.0L Cannula 11/09 1600 98.0 61 21 126/62 92 Nasal 2.0L Cannula Intake & Output 11/10 1600 11/10 0800 11/10 0000 11/09 1600 11/09 0800 11/09 0000 Intake Total 270 633 100 500 Output Total 400 -783 769 6224 0 1000 Balance -400 100 -430 -467 100 -500 Intake, IV 333 Intake, Oral 270 300 100 500 Number 0 0 Bowel Movements Output, 400 -113 628 2952 0 1000 Dialysate Output, Urine 0 0 Patient 169 lb Weight Physical Exam: Gen: NAD HEENT: normal Lungs: Scattered rhonchi, normal resp. effort Heart: RRR, S1, S2, 2/6 systolic murmur Abdomen: Soft, nontender, no masses Extremities: No clubbing, cyanosis, or edema. Neuro: Alert and oriented x 3, cranial nerves intact Current Medications: Current Medications Sig/Bryan Start time Last Medication Dose Route Stop Time Status Admin Acetaminophen 650 MG Q6P PRN 11/06 1745 AC PO Alprazolam 0.5 MG DAILY PRN 11/06 1800 AC 11/10 PO 11/13 1759 1153 Amlodipine Besylate 10 MG DAILY 11/08 1000 AC 11/10 PO 09 Aspirin 81 MG DAILY 11/07 1000 AC 11/10 PO 0922 Calcitriol 0.75 MCG BID 11/06 2199 AC 11/10 PO 0923 Calcium Carbonate 2,000 MG BID 11/06 2199 AC 11/09 PO 0951 Clonidine 1 PAT Q168 11/14 1000 AC TOP Diphenhydramine HCl 50 MG ONCE ONE 11/10 1230 DC 11/10 IV 11/10 1231 1229 Epoetin Carlos 10,000 UNIT Q 2 WEEKS 11/20 1000 AC SC Hydralazine HCl 100 MG Q8 11/08 0915 AC 11/09 PO 2116 Hydromorphone HCl 0.5 MG Q4P PRN 11/08 1503 AC 11/10 IV 0947 Labetalol HCl 200 MG BID 11/09 2200 AC 11/10 PO 1150 Labetalol HCl 450 MG TID 11/07 1000 DC 11/09 PO 0952 Losartan Potassium 100 MG DAILY 11/07 1000 AC 11/10 PO 1031 Methylprednisolone 40 MG ONCE ONE 11/10 1030 DC 11/10 IV 11/10 1031 1031 Ondansetron HCl 4 MG Q6P PRN 11/08 1315 AC 11/10 PO 0830 Oxycodone/ 1 TAB Q6P PRN 11/06 1745 AC Acetaminophen PO Results Last 48 Hrs of Labs/Mics: Laboratory Tests 11/10/16 0500: Anion Gap 11, Estimated GFR 4 L, Glucose 90, Calcium 8.2 L, Phosphorus 5.4 H, Magnesium 1.6, Total Bilirubin 0.5, AST 5 L, ALT 22, Albumin 2.7 L, CBC w Diff NO MAN DIFF REQ, RBC 3.64 L, MCV 90.9, MCH 29.8, RDW 19.1 H, MPV 8.4, Gran % 72.7, Lymphocytes % 12.4 L, Monocytes % 9.4 H, Eosinophils % 4.7, Basophils % 0.8, Absolute Granulocytes 7.1 H, Absolute Lymphocytes 1.2, Absolute Monocytes 0.9 H, Absolute Eosinophils 0.5, Absolute Basophils 0.1, PUBS MCHC 32.8 L 11/09/16 1002: Glucose Cancelled, Lactate Dehydrogenase Cancelled 11/09/16 1000: Fluid WBC Cancelled, Fld Total RBCs Counted Cancelled 11/09/16 1000: Fluid Amylase Cancelled 11/09/16 1000: Albumin Cancelled, Fluid Glucose Cancelled, Fluid Albumin Cancelled, Fluid LDH Cancelled 11/09/16 0445: Anion Gap 11, Estimated GFR 4 L, Glucose 85, Calcium 8.2 L, Phosphorus 5.6 H, Magnesium 1.7, Total Bilirubin 0.5, AST 9 L, ALT 27, Albumin 3.0 L, CBC w Diff NO MAN DIFF REQ, RBC 3.68 L, MCV 91.5, MCH 29.9, RDW 18.9 H, MPV 8.5, Gran % 59.1, Lymphocytes % 24.6, Monocytes % 8.6, Eosinophils % 6.8 H, Basophils % 0.9 , Absolute Granulocytes 4.7, Absolute Lymphocytes 1.9, Absolute Monocytes 0.7 H , Absolute Eosinophils 0.5, Absolute Basophils 0.1, PUBS MCHC 32.6 L Assessment/Plan Assessment/Plan Assessment: 1. Hypertensive Urgency 2. ESRD on peritoneal dialysis 3. Prior CVA 4. 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 Mild normocytic anemia 6. Lower extremity edema 7. Severe LVH with mild diastolic dysfunction 8. Mild to moderate TR with mild pulmonary HTN Plan: * Continue labetalol 200 mg oral wice a day. * Continue other hypertension medications. * Continue close monitoring of blood pressure. Continue telemetry? Yes
--- NOTE | 2016-11-10 15:30 | NUR ---
PATIENT RETURNED FROM CAT SCAN. PATIENT ALERT AND ORIENTED WITH COMPLAINTS OF EMEKA FLANK PAIN. FARNAZ. MOVES ALL EXTREMITIES AND AMBULATES WITH SUPERVISION DUE TO VISION ISSUES. LUNGS CLEAR SATS 94 ON ROOM AIR. NSR ON MONITOR, HEART SOUNDS REGULAR. BELLY DISTENDED WITH DIALYSATE, DRAINING STARTED AT THIS TIME. PATIENT DOES NOT VOID DUE TO RENAL FAILURE. SKIN INTACT. DIALYSIS CATHETER TO ABDOMEN WITH DRESSING INTACT.
--- NOTE | 2016-11-10 15:46 | CT SCAN REPORT ---
EXAMINATION: CT CHEST WITHOUT AND WITH CONTRAST CLINICAL INFORMATION: Left pleural effusion. Evaluate for peritoneal fluid extension to lungs. COMPARISON: Abdomen CT, 07/15/2016. Recent chest radiographs, including 11/09/2016. TECHNIQUE: Multidetector volumetric CT imaging of the chest was obtained before and after the intraperitoneal administration of dilute Optiray 320 contrast without immediate adverse reactions. A volume of 100 mL of Optiray 320 was utilized. Axial MIP volume rendering provided. Sagittal and coronal reformatted images were obtained. DLP: 357 mGy-cm FINDINGS: LUNGS AND PLEURA: Trachea and central airways are widely patent and normal in caliber. There are a few subpleural linear opacities of scarring in the lateral aspect of the posterior segment the right upper lobe and lateral segment of the middle lobe, where there is minimal thickening of the overlying pleura. This is consistent with remote inflammatory change. Also, there are subpleural linear opacities of atelectasis and/or scarring in the inferior aspect of the middle lobe and posterior and lateral aspects of the right lower lobe. Mild subsegmental atelectasis is present within the inferior lingula. There is a small, posteriorly layering pleural effusion with compressive atelectasis in the left lower lobe. There is no communication of the peritoneal fluid with the left pleural space. MEDIASTINUM: There is cardiomegaly and extensive three-vessel coronary artery atherosclerotic calcification. The pulmonary arteries and the atherosclerotic thoracic aorta are normal in caliber. No pericardial effusion. The esophagus is unremarkable. LYMPHATICS: No pathologic sized axillary, internal mammary, mediastinal or hilar lymph nodes. UPPER ABDOMEN: There is hyperdense peritoneal fluid within the examined upper abdomen. The partially visualized left kidney is atrophied. There is atherosclerotic calcification of the aorta and splenic artery. Adrenal glands are normal. OSSEOUS STRUCTURES: Bones are diffusely osteosclerotic, consistent with renal osteodystrophy. No suspicious osseous lesions. IMPRESSION: 1. Small left pleural effusion with compressive atelectasis in the left lower lobe. No evidence of communication of the peritoneal fluid with the left pleural effusion. 2. Coronary artery atherosclerotic disease and cardiomegaly without acute pulmonary edema. 3. Renal osteodystrophy.
[2016-11-10 16:00] VITALS: BP 130/70
--- NOTE | 2016-11-10 16:06 | NUR ---
At 1300 patient was transported to CT scan on electronic device monitor by this RN- Her peritoneal dialysis was drained at 1230 and finished emptying prior to transfer. A CT scan was done at time of arrival. livestock buyer Adalgisa at CT scan and dwelled peritoneal solution with IV contrast- after infusion complete at approx 1400- a repeat CT scan was completed. Patient was then transported back to room. Vitals remained stable during procedure and pt offered no complaints. She was placed on 2L nc for comfort. At 1500 patient was transported back to CT scan for a repeat CT scan (1 hour after contrast dwelled). Vitals remained stable and pt toleraed procedure well. Upon arrival back to room at contrast dialysate was drained at 4.25 solution now dwelling. Per dialysis nurse- contrast exchange should not count towards intake and output and normal dialysis exchnages should be resumed per order. Report given to oncoming RN. Will continue to closely monitor patient.
[2016-11-10 23:00] VITALS: BP 144/78
--- NOTE | 2016-11-11 00:39 | NUR ---
11/11/16 AT 0000, PATIENT WAS COMPLAING OF ABDOMINAL SHARP PAIN 10 OUT 10. SHE IS STATING IT WAS CAUSED BY HER AMBILICAL HERNIA. QUESTIONING POSSIBLE SIDE EFFECT FROM DYE ON 11/[address] SCAN. THIS PAIN IS NEW FOR PATIENT. MD MARISSA WOOTEN AND ARIADNA BAER BOTH NOTIFIED. IV DILAUDID 1MG ORDERED AND GIVEN/ LAST IV DILAUDID WAS GIVEN AT 2200. ALSO ZOFRAN 4MG PO GIVEN. PATIENT ALSO WAS ON THE FLOOR LEANING ON THE BED TO GET HERSELF COMFORTABLE. CURRENTLY, PATIENT RESTING COMFORTABLY IN BED. WILL CONTINUE TO MONITOR.
[2016-11-11 06:11] LABS: ABSOLUTE BASOPHIL COUNT 0 /CUMM (0.0-0.2); ABSOLUTE EOSINOPHIL COUNT 0 /CUMM (0.0-0.7); ABSOLUTE GRANULOCYTE CT 14.5 /CUMM (1.4-6.5); ABSOLUTE LYMPH COUNT 0.5 /CUMM (1.2-3.4); ABSOLUTE MONOCYTE COUNT 0.2 /CUMM (0.10-0.60); BASOPHIL % 0.1 % (0.0-2.0); EOSINOPHIL % 0.3 % (0-5); GRANULOCYTE % 95.1 % (42.2-75.2); HEMATOCRIT 34.9 % (37-47); MEAN CORPUSCULAR HGB 29.3 PG (27.0-31.0); MEAN CORPUSCULAR VOLUME 91.4 FL (81.0-99.0); MEAN PLATELET VOLUME 8.5 FL (7.4-10.4); PLATELET COUNT 361 /CUMM (130-400); RBC DISTRIBUTION WIDTH 19.1 % (11.5-14.5); RED BLOOD CELL CT 3.82 /CUMM (4.20-5.40)
[2016-11-11 06:19] LABS: WHITE BLOOD CELL COUNT 15.2 /CUMM (4.8-10.8)
--- NOTE | 2016-11-11 07:16 | PN- Resident CRCU ---
Subjective HPI/CRCU Issues: No acute events overnight. Patient seen and examined this morning. She is sleeping comfortably in bed but is arousable. She feels well and offers no complaints. Objective Vital Signs & I&O Last 8 Hrs of Vitals and I&O: Intake & Output 11/11 1600 Intake Total 600 Output Total 600 Balance 0 Intake, Oral 600 Output, 600 Dialysate Exam General Appearance: well developed/nourished, no apparent distress, alert, awake , comfortable Ears, Nose, Throat: moist mucus membranes Respiratory: lungs clear Cardiovascular: regular rate/rhythm, normal S1 and S2, no murmurs, rubs or gallops Gastrointestinal: soft, non-tender, positive bowel sounds Extremities: no edema, no clubbing or cyanosis Skin: intact, warm/dry Current Medications: Current Medications Sig/Bryan Start time Last Medication Dose Route Stop Time Status Admin Acetaminophen 650 MG Q6P PRN 11/06 1745 AC PO Alprazolam 0.5 MG DAILY PRN 11/06 1800 AC 11/10 PO 11/13 1759 1153 Amlodipine Besylate 10 MG DAILY 11/08 1000 AC 11/10 PO 0922 Aspirin 81 MG DAILY 11/07 1000 AC 11/11 PO 1052 Calcitriol 0.75 MCG BID 11/06 2200 AC 11/11 PO 1051 Calcium Carbonate 2,000 MG BID 11/06 2200 AC 11/11 PO 1052 Clonidine 1 PAT Q168 11/14 1000 AC TOP Docusate Sodium 100 MG BID PRN 11/11 1130 AC PO Epoetin Carlos 10,000 UNIT Q 2 WEEKS 11/20 1000 AC SC Heparin Sodium 5,000 UNIT Q8 11/10 1735 DC (Porcine) SC Hydralazine HCl 100 MG Q8 11/08 0915 AC 11/11 PO 0528 Hydromorphone HCl 1 MG Q4P PRN 11/11 0902 AC 11/11 IV 1311 Hydromorphone HCl 1 MG ONCE ONE 11/10 2345 DC 11/10 IV 11/10 2346 2342 Hydromorphone HCl 0.5 MG ONCE ONE 11/10 1715 DC 11/10 IV PUSH 11/10 1716 1721 Hydromorphone HCl 1 MG Q6 PRN 11/10 1649 DC 11/11 IV 0412 Hydromorphone HCl 0.5 MG Q4P PRN 11/08 1503 DC 11/10 IV 1601 Labetalol HCl 200 MG BID 11/09 2200 AC 11/10 PO 2158 Losartan Potassium 100 MG DAILY 11/07 1000 AC 11/10 PO 1031 Ondansetron HCl 4 MG .STK-MED ONE 11/11 0019 DC PO 11/11 0020 Ondansetron HCl 4 MG Q6P PRN 11/08 1315 AC 11/11 PO 0025 Oxycodone/ 1 TAB Q6P PRN 11/06 1745 AC Acetaminophen PO Senna/Docusate Sodium 1 TAB BID PRN 11/11 1130 AC 11/11 PO 1311 Results Results: Laboratory Tests 11/11 0430 Chemistry Sodium (137 - 145 mmol/L) 134 L Potassium (3.5 - 5.1 mmol/L) 4.5 Chloride (98 - 107 mmol/L) 90 L Carbon Dioxide (22 - 30 mmol/L) 30 Anion Gap (5 - 16) 14 BUN (7 - 17 mg/dL) 41 H Creatinine (0.5 - 1.0 mg/dL) 10.8 *H Estimated GFR (>60 ml/min) 4 L Glucose (65 - 99 mg/dL) 96 Calcium (8.4 - 10.2 mg/dL) 8.9 Phosphorus (2.5 - 4.5 mg/dL) 5.0 H Magnesium (1.6 - 2.3 mg/dL) 1.7 Total Bilirubin (0.2 - 1.3 mg/dL) 0.5 AST (14 - 36 U/L) 8 L ALT (9 - 52 U/L) 21 Albumin (3.5 - 5.0 g/dL) 3.2 L Hematology CBC w Diff NO MAN DIFF REQ WBC (4.8 - 10.8 /CUMM) 15.2 H RBC (4.20 - 5.40 /CUMM) 3.82 L Hgb (12.0 - 16.0 G/DL) 11.2 L Hct (37 - 47 %) 34.9 L MCV (81.0 - 99.0 FL) 91.4 MCH (27.0 - 31.0 PG) 29.3 RDW (11.5 - 14.5 %) 19.1 H Plt Count (130 - 400 /CUMM) 361 MPV (7.4 - 10.4 FL) 8.5 Gran % (42.2 - 75.2 %) 95.1 H Lymphocytes % (20.5 - 51.1 %) 3.3 L Monocytes % (1.7 - 9.3 %) 1.2 L Eosinophils % (0 - 5 %) 0.3 Basophils % (0.0 - 2.0 %) 0.1 Absolute Granulocytes (1.4 - 6.5 /CUMM) 14.5 H Absolute Lymphocytes (1.2 - 3.4 /CUMM) 0.5 L Absolute Monocytes (0.10 - 0.60 /CUMM) 0.2 Absolute Eosinophils (0.0 - 0.7 /CUMM) 0 Absolute Basophils (0.0 - 0.2 /CUMM) 0 PUBS MCHC (33.0 - 37.0 G/DL) 32.[address] Scan Findings: CT CHEST W&WO IV CONTRAST: 1. Small left pleural effusion with compressive atelectasis in the left lower lobe. No evidence of communication of the peritoneal fluid with the left pleural effusion. 2. Coronary artery atherosclerotic disease and cardiomegaly without acute pulmonary edema. 3. Renal osteodystrophy. Impression/Plan Impression/Problem List Impression: 31 y/o F with PMHx of ESRD on peritoneal dialysis, CVA with residual left-sided weakness and uncontrolled HTN who presents with hypertensive urgency. Problem List: 1. Hypertensive urgency 2. Pleural effusion, left 3. Peritoneal dialysis 4. End-stage renal disease on peritoneal dialysis Pain Ratin Pain Location: N/A Pain Plan: Dilaudid 1 mg IV Q4H PRN for severe pain (scale 7-10) Percocet 1 tab PO Q6H PRN for moderate pain (scale 4-6) Tylenol 650 mg PO Q6H PRN for mild pain (scale 1-3) Tomorrow's Labs & Rationales: BMP and Mg to monitor lytes as patient is ESRD on peritoneal dialysis Plan Respiratory: #Left-sided pleural effusion: CT Chest negative for diaphragmatic leakage of peritoneal fluid into pleural space. Pleural effusion most likely secondary to volume overload. Currently satting well on room air without shortness of breath. * Provide supplemental oxygen as needed to keep SpO2 > 92%. Infectious Diseases: Afebrile and without leukocytosis. No signs or symptoms of infection. Cardiovascular: #Hypertensive urgency: Blood pressures have been running in the 130s/70-80s today. AM hypertensive medications amlodipine, labetalol and losartan were held for SBP < 140. * Cardiology following. Appreciate their recs. * Continue blood pressure control per cardiology. * Continue to closely monitor blood pressure to ensure that it does not drop too fast. Maintain SBP around 120-140. * Continue amlodipine 10 mg PO daily, clonidine 0.1 mg patch, hydralazine 100 mg PO TID, labetalol 200 mg PO BID and losartan 100 mg PO QD. Hold for SBP < 140. * Anticipated discharge tomorrow pending cardiology input on discharge antihypertensive medications. Hematology: #Anemia of CKD: H/H stable. Gets injections of 40,000 of Epogen units every other week. * Continue [id number] Epogen injections. Next one scheduled on November 20. Metabolic: #ESRD on peritoneal dialysis: * Nephrology following. Appreciate their recs. * Peritoneal dialysis per nephrology. Alimentary: 2 g sodium diet Neurological: AAO x3. No issues. History of CVA in January 2013 with residual left-sided weakness. Skin: No issues. DVT/Prophylaxis: mechanical Code Status: Full Code
[2016-11-11 08:00] VITALS: BP 162/84
--- NOTE | 2016-11-11 08:23 | PN- CRCU ---
Subjective HPI/Critical Care Issues: The patient is sleeping comfortably but then arousable. There were no overnight events reported by staff. Her blood pressure continues to fluctuate but once again it is improved overall. She offers no complaints today. Objective Current Medications: Current Medications Sig/Bryan Start time Last Medication Dose Route Stop Time Status Admin Acetaminophen 650 MG Q6P PRN 11/06 1745 AC PO Alprazolam 0.5 MG DAILY PRN 11/06 1800 AC 11/10 PO 11/13 1759 1153 Amlodipine Besylate 10 MG DAILY 11/08 1000 AC 11/10 PO 0922 Aspirin 81 MG DAILY 11/07 1000 AC 11/10 PO 0922 Calcitriol 0.75 MCG BID 11/06 2200 AC 11/10 PO 215 Calcium Carbonate 2,000 MG BID 11/06 220 AC 11/10 PO 2156 Clonidine 1 PAT Q168 11/14 1000 AC TOP Diphenhydramine HCl 50 MG ONCE ONE 11/10 1230 DC 11/10 IV 11/10 1231 1229 Epoetin Carlos 10,000 UNIT Q 2 WEEKS 11/20 1000 AC SC Heparin Sodium 5,000 UNIT Q8 11/10 1735 DC (Porcine) SC Hydralazine HCl 100 MG Q8 11/08 0915 AC 11/11 PO 0528 Hydromorphone HCl 1 MG ONCE ONE 11/10 2345 DC 11/10 IV 11/10 2346 2342 Hydromorphone HCl 0.5 MG ONCE ONE 11/10 1715 DC 11/10 IV PUSH 11/10 1716 1721 Hydromorphone HCl 1 MG Q6 PRN 11/10 1649 AC 11/11 IV 0412 Hydromorphone HCl 0.5 MG Q4P PRN 11/08 1503 DC 11/10 IV 1601 Labetalol HCl 200 MG BID 11/09 2200 AC 11/10 PO 2158 Losartan Potassium 100 MG DAILY 11/07 1000 AC 11/10 PO 1031 Methylprednisolone 40 MG ONCE ONE 11/10 1030 DC 11/10 IV 11/10 1031 1031 Ondansetron HCl 4 MG Q6P PRN 11/08 1315 AC 11/11 PO 0025 Oxycodone/ 1 TAB Q6P PRN 11/06 1745 AC Acetaminophen PO Vital Signs & I&O Last 24 Hrs of Vitals and I&O: Vital Signs Date Time Temp Pulse Resp B/P Pulse O2 O2 Flow FiO2 Ox Delivery Rate 11/11 0528 78 159/84 11/11 0400 95 Nasal 2.0L Cannula 11/11 0000 94 Nasal 2.0L Cannula 11/10 2300 98.0 78 20 144/78 94 Nasal 2.0L Cannula 11/10 2158 64 156/82 11/10 2157 156/82 11/10 1600 94 Room Air 11/10 1600 98.5 70 18 130/70 94 Room Air 11/10 1427 74 132/74 11/10 1150 72 164/94 11/10 1031 78 162/100 11/10 0922 77 172/106 Intake & Output 11/11 1600 11/11 0800 11/11 0000 Intake Total 440 300 Output Total 1100 500 Balance -660 -200 Intake, Oral 440 300 Number 0 Bowel Movements Output, 1100 500 Dialysate Patient 165 lb Weight Physical Exam General Appearance Sleeping comfortably, then arousable Skin No rashes HEENT Atraumatic, PERRL Cardiovascular Regular Rate, Normal S1, Normal S2, No Murmurs Abdomen Diminished breath sounds left base Neurological No focality Extremities Improved edema Results Last 24 Hrs of Lab Results: Laboratory Tests 11/11/16 0430: Anion Gap 14, Estimated GFR 4 L, Glucose 96, Calcium 8.9, Phosphorus 5.0 H, Magnesium 1.7, Total Bilirubin 0.5, AST 8 L, ALT 21, Albumin 3.2 L, CBC w Diff NO MAN DIFF REQ, RBC 3.82 L, MCV 91.4, MCH 29.3, RDW 19.1 H, MPV 8.5, Gran % 95.1 H, Lymphocytes % 3.3 L, Monocytes % 1.2 L, Eosinophils % 0.3, Basophils % 0.1, Absolute Granulocytes 14.5 H, Absolute Lymphocytes 0.5 L, Absolute Monocytes 0.2, Absolute Eosinophils 0, Absolute Basophils 0, PUBS MCHC 32.[address] Scan Findings: 1. Small left pleural effusion with compressive atelectasis in the left lower lobe. No evidence of communication of the peritoneal fluid with the left pleural effusion. 2. Coronary artery atherosclerotic disease and cardiomegaly without acute pulmonary edema. 3. Renal osteodystrophy. Impression/Plan Impression/Plan Impression/Plan: 1. Hypertensive emergency - the patient's blood pressure is better controlled overall. 2. End-stage renal disease on peritoneal dialysis. 3. History of stroke following rapid drop of blood pressure. 4. Chronic pain. 5. History of anxiety. 6. Left-sided pleural effusion without evidence of communication into the peritoneum based upon yesterday CT scan findings. Recommendations: * Continue blood pressure control as recommended by cardiology. * Continue with pain control. * Peritoneal dialysis as per nephrology. * Continue Xanax for anxiety control. * Acetaminophen, Percocet and Dilaudid to continue for pain control. * DVT prophylaxis with Venodyne's. * Will downgrade to gen med when cleared by cardiology. Code Status: Full Code
[2016-11-11 10:00] VITALS: BP 138/80
--- NOTE | 2016-11-11 11:43 | PN- Cardiology ---
Subjective Subjective: Clinically, the patient appears about the same. Blood pressure remains labile but better controlled. No new specific symptoms. Objective Vital Signs and I&Os Vital Signs Date Time Temp Pulse Resp B/P Pulse O2 O2 Flow FiO2 Ox Delivery Rate 11/11 0800 96 Room Air Room Air 11/11 0800 98.8 72 20 162/84 96 Room Air Room Air 11/11 0528 78 159/84 11/11 0400 95 Nasal 2.0L Cannula 11/11 0000 94 Nasal 2.0L Cannula 11/10 2300 98.0 78 20 144/78 94 Nasal 2.0L Cannula 11/10 2158 64 156/82 11/10 2157 156/82 11/10 1600 94 Room Air 11/10 1600 98.5 70 18 130/70 94 Room Air 11/10 1427 74 132/74 11/10 1150 72 164/94 Intake & Output 11/11 1600 11/11 0800 11/11 0000 11/10 1600 11/10 0800 11/10 0000 Intake Total 440 300 240 270 Output Total 0 1100 500 900 -100 700 Balance 0 -660 -200 -660 100 -430 Intake, Oral 440 300 240 270 Number 0 Bowel Movements Output, 0 1100 500 900 -100 700 Dialysate Patient 165 lb 169 lb Weight Physical Exam: General: NAD; vital signs stable; alert and oriented 3 HEENT: normal Lungs: Scattered rhonchi bilaterally Heart: Regular, S1, S2, 2/6 systolic murmur Abdomen: Soft, nontender, no masses Extremities: No clubbing, cyanosis, or edema. Neuro: Nonfocal Current Medications: Current Medications Sig/Bryan Start time Last Medication Dose Route Stop Time Status Admin Acetaminophen 650 MG Q6P PRN 11/06 1745 AC PO Alprazolam 0.5 MG DAILY PRN 11/06 1800 AC 11/10 PO 11/13 1759 1153 Amlodipine Besylate 10 MG DAILY 11/08 1000 AC 11/10 PO 0922 Aspirin 81 MG DAILY 11/07 1000 AC 11/11 PO 1052 Calcitriol 0.75 MCG BID 11/06 220 AC 11/11 PO 1051 Calcium Carbonate 2,000 MG BID 11/06 2199 AC 11/11 PO 1052 Clonidine 1 PAT Q168 11/14 1000 AC TOP Diphenhydramine HCl 50 MG ONCE ONE 11/10 1230 DC 11/10 IV 11/10 1231 1229 Docusate Sodium 100 MG BID PRN 11/11 1130 AC PO Epoetin Carlos 10,000 UNIT Q 2 WEEKS 11/20 1000 AC SC Heparin Sodium 5,000 UNIT Q8 11/10 1735 DC (Porcine) SC Hydralazine HCl 100 MG Q8 11/08 0915 AC 11/11 PO 0528 Hydromorphone HCl 1 MG Q4P PRN 11/11 0902 AC 11/11 IV 0913 Hydromorphone HCl 1 MG ONCE ONE 11/10 2345 DC 11/10 IV 11/10 2346 2342 Hydromorphone HCl 0.5 MG ONCE ONE 11/10 1715 DC 11/10 IV PUSH 11/10 1716 1721 Hydromorphone HCl 1 MG Q6 PRN 11/10 1649 DC 11/11 IV 0412 Hydromorphone HCl 0.5 MG Q4P PRN 11/08 1503 DC 11/10 IV 1601 Labetalol HCl 200 MG BID 11/09 2200 AC 11/10 PO 2158 Losartan Potassium 100 MG DAILY 11/07 1000 AC 11/10 PO 1031 Ondansetron HCl 4 MG .STK-MED ONE 11/11 0019 DC PO 11/11 0020 Ondansetron HCl 4 MG Q6P PRN 11/08 1315 AC 11/11 PO 0025 Oxycodone/ 1 TAB Q6P PRN 11/06 1745 AC Acetaminophen PO Senna/Docusate Sodium 1 TAB BID PRN 11/11 1130 AC PO Results Last 48 Hrs of Labs/Mics: Laboratory Tests 11/11/16 0430: Anion Gap 14, Estimated GFR 4 L, Glucose 96, Calcium 8.9, Phosphorus 5.0 H, Magnesium 1.7, Total Bilirubin 0.5, AST 8 L, ALT 21, Albumin 3.2 L, CBC w Diff NO MAN DIFF REQ, RBC 3.82 L, MCV 91.4, MCH 29.3, RDW 19.1 H, MPV 8.5, Gran % 95.1 H, Lymphocytes % 3.3 L, Monocytes % 1.2 L, Eosinophils % 0.3, Basophils % 0.1, Absolute Granulocytes 14.5 H, Absolute Lymphocytes 0.5 L, Absolute Monocytes 0.2, Absolute Eosinophils 0, Absolute Basophils 0, PUBS MCHC 32.0 L 11/10/16 0500: Anion Gap 11, Estimated GFR 4 L, Glucose 90, Calcium 8.2 L, Phosphorus 5.4 H, Magnesium 1.6, Total Bilirubin 0.5, AST 5 L, ALT 22, Albumin 2.7 L, CBC w Diff NO MAN DIFF REQ, RBC 3.64 L, MCV 90.9, MCH 29.8, RDW 19.1 H, MPV 8.4, Gran % 72.7, Lymphocytes % 12.4 L, Monocytes % 9.4 H, Eosinophils % 4.7, Basophils % 0.8, Absolute Granulocytes 7.1 H, Absolute Lymphocytes 1.2, Absolute Monocytes 0.9 H, Absolute Eosinophils 0.5, Absolute Basophils 0.1, PUBS MCHC 32.8 L Assessment/Plan Assessment/Plan Assessment: 1. Hypertensive Urgency 2. ESRD on peritoneal dialysis 3. Prior CVA 4. 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 Mild normocytic anemia 6. Lower extremity edema 7. Severe LVH with mild diastolic dysfunction 8. Mild to moderate TR with mild pulmonary HTN Recommendations: -From my perspective, the patient is stable to be transferred out of the ICU. -Ambulate the patient with monitoring of her blood pressure. -If the patient remains stable on her current medical regimen, and her blood pressure is stable with ambulation, she can be discharged home in the very near future. -Discharge planning -The patient should follow-up with me as an outpatient. Continue telemetry? No
[2016-11-11 12:00] VITALS: BP 134/74
--- NOTE | 2016-11-11 12:09 | PN- Nephrology ---
Assessment/Plan Assessment: 1. ESRD - on PD 2. Uncontrolled hypertension with hypertensive emergency -significantly improved 3. Left pleural effusion - no apparent leakage from peritoneum per yesterday's imaging study Suggestion: 1. Continue current PD regimen 2. Consider discharge home today on her current antihypertensives Subjective Subjective: Patient feels well with no specific complaints. Blood pressure is much improved. Yesterday's imaging studies showed no apparent leakage from below the diaphragm into her left pleural space. Objective Vital Signs and I&Os Vital Signs Date Time Temp Pulse Resp B/P Pulse O2 O2 Flow FiO2 Ox Delivery Rate 11/11 0800 96 Room Air Room Air 11/11 0800 98.8 72 20 162/84 96 Room Air Room Air 11/11 0528 78 159/84 11/11 0400 95 Nasal 2.0L Cannula 11/11 0000 94 Nasal 2.0L Cannula 11/10 2300 98.0 78 20 144/78 94 Nasal 2.0L Cannula 11/10 2158 64 156/82 11/10 2157 156/82 11/10 1600 94 Room Air 11/10 1600 98.5 70 18 130/70 94 Room Air 11/10 1427 74 132/74 Intake & Output 11/11 1600 11/11 0400 11/10 1600 11/10 0400 11/09 1600 11/09 0400 Intake Total 440 300 240 270 733 500 Output Total 335 724 4149 400 1100 1000 Balance -260 -600 -860 -130 -367 -500 Intake, IV 333 Intake, Oral 440 300 240 270 400 500 Number 0 0 0 Bowel Movements Output, 206 436 3738 400 1100 1000 Dialysate Output, Urine 0 0 Patient 165 lb 169 lb Weight Physical Exam: General: Well-developed white female, slightly lethargic but easily arousable, in NAD Skin: No rash or jaundice HEENT: Conjunctivae pink, sclerae anicteric, mucous membranes dry Neck: Without masses or thyromegaly, no supraclavicular or cervical adenopathy Chest: Clear to P&A Heart: Regular rate and rhythm without S3 or rub Abdomen: Soft and nontender without palpable masses or organomegaly, PD catheter exit site clean and dry Extremities: Without cyanosis or edema Neuro: No focal findings, no asterixis or myoclonus Current Medications: Current Medications Sig/Bryan Start time Last Medication Dose Route Stop Time Status Admin Acetaminophen 650 MG Q6P PRN 11/06 1745 AC PO Alprazolam 0.5 MG DAILY PRN 11/06 1800 AC 11/10 PO 11/13 1759 1153 Amlodipine Besylate 10 MG DAILY 11/08 1000 AC 11/10 PO 0922 Aspirin 81 MG DAILY 11/07 1000 AC 11/11 PO 1052 Calcitriol 0.75 MCG BID 11/06 2200 AC 11/11 PO 1051 Calcium Carbonate 2,000 MG BID 11/06 2200 AC 11/11 PO 1052 Clonidine 1 PAT Q168 11/14 1000 AC TOP Diphenhydramine HCl 50 MG ONCE ONE 11/10 1230 DC 11/10 IV 11/10 1231 1229 Docusate Sodium 100 MG BID PRN 11/11 1130 AC PO Epoetin Carlos 10,000 UNIT Q 2 WEEKS 11/20 1000 AC SC Heparin Sodium 5,000 UNIT Q8 11/10 1735 DC (Porcine) SC Hydralazine HCl 100 MG Q8 11/08 0915 AC 11/11 PO 0528 Hydromorphone HCl 1 MG Q4P PRN 11/11 0902 AC 11/11 IV 0913 Hydromorphone HCl 1 MG ONCE ONE 11/10 2345 DC 11/10 IV 11/10 2346 2342 Hydromorphone HCl 0.5 MG ONCE ONE 11/10 1715 DC 11/10 IV PUSH 11/10 1716 1721 Hydromorphone HCl 1 MG Q6 PRN 11/10 1649 DC 11/11 IV 0412 Hydromorphone HCl 0.5 MG Q4P PRN 11/08 1503 DC 11/10 IV 1601 Labetalol HCl 200 MG BID 11/09 2200 AC 11/10 PO 2158 Losartan Potassium 100 MG DAILY 11/07 1000 AC 11/10 PO 1031 Ondansetron HCl 4 MG .STK-MED ONE 11/11 0019 DC PO 11/11 0020 Ondansetron HCl 4 MG Q6P PRN 11/08 1315 AC 11/11 PO 0025 Oxycodone/ 1 TAB Q6P PRN 11/06 1745 AC Acetaminophen PO Senna/Docusate Sodium 1 TAB BID PRN 11/11 1130 AC PO Results Pertinent Lab Results: Laboratory Tests 11/11 11/10 0430 0500 Chemistry Sodium (137 - 145 mmol/L) 134 L 135 L Potassium (3.5 - 5.1 mmol/L) 4.5 4.5 Chloride (98 - 107 mmol/L) 90 L 93 L Carbon Dioxide (22 - 30 mmol/L) 30 31 H Anion Gap (5 - 16) 14 11 BUN (7 - 17 mg/dL) 41 H 35 H Creatinine (0.5 - 1.0 mg/dL) 10.8 *H 11.5 *H Estimated GFR (>60 ml/min) 4 L 4 L Glucose (65 - 99 mg/dL) 96 90 Calcium (8.4 - 10.2 mg/dL) 8.9 8.2 L Phosphorus (2.5 - 4.5 mg/dL) 5.0 H 5.4 H Magnesium (1.6 - 2.3 mg/dL) 1.7 1.6 Total Bilirubin (0.2 - 1.3 mg/dL) 0.5 0.5 AST (14 - 36 U/L) 8 L 5 L ALT (9 - 52 U/L) 21 22 Albumin (3.5 - 5.0 g/dL) 3.2 L 2.7 L Hematology CBC w Diff NO MAN DIFF REQ NO MAN DIFF REQ WBC (4.8 - 10.8 /CUMM) 15.2 H 9.7 RBC (4.20 - 5.40 /CUMM) 3.82 L 3.64 L Hgb (12.0 - 16.0 G/DL) 11.2 L 10.9 L Hct (37 - 47 %) 34.9 L 33.1 L MCV (81.0 - 99.0 FL) 91.4 90.9 MCH (27.0 - 31.0 PG) 29.3 29.8 RDW (11.5 - 14.5 %) 19.1 H 19.1 H Plt Count (130 - 400 /CUMM) 361 336 MPV (7.4 - 10.4 FL) 8.5 8.4 Gran % (42.2 - 75.2 %) 95.1 H 72.7 Lymphocytes % (20.5 - 51.1 %) 3.3 L 12.4 L Monocytes % (1.7 - 9.3 %) 1.2 L 9.4 H Eosinophils % (0 - 5 %) 0.3 4.7 Basophils % (0.0 - 2.0 %) 0.1 0.8 Absolute Granulocytes (1.4 - 6.5 /CUMM) 14.5 H 7.1 H Absolute Lymphocytes (1.2 - 3.4 /CUMM) 0.5 L 1.2 Absolute Monocytes (0.10 - 0.60 /CUMM) 0.2 0.9 H Absolute Eosinophils (0.0 - 0.7 /CUMM) 0 0.5 Absolute Basophils (0.0 - 0.2 /CUMM) 0 0.1 PUBS MCHC (33.0 - 37.0 G/DL) 32.0 L 32.8 L 11/09 11/09 11/09 11/09 1002 1000 1000 UNK Chemistry Glucose Cancelled Lactate Dehydrogenase Cancelled Albumin Cancelled Other Body Source Fluid WBC Cancelled Fld Total RBCs Counted Cancelled Fluid Glucose Cancelled Fluid Albumin Cancelled Fluid LDH Cancelled Fluid Amylase Cancelled 11/09 0445 Chemistry Sodium (137 - 145 mmol/L) 135 L Potassium (3.5 - 5.1 mmol/L) 4.4 Chloride (98 - 107 mmol/L) 94 L Carbon Dioxide (22 - 30 mmol/L) 30 Anion Gap (5 - 16) 11 BUN (7 - 17 mg/dL) 40 H Creatinine (0.5 - 1.0 mg/dL) 12.1 *H Estimated GFR (>60 ml/min) 4 L Glucose (65 - 99 mg/dL) 85 Calcium (8.4 - 10.2 mg/dL) 8.2 L Phosphorus (2.5 - 4.5 mg/dL) 5.6 H Magnesium (1.6 - 2.3 mg/dL) 1.7 Total Bilirubin (0.2 - 1.3 mg/dL) 0.5 AST (14 - 36 U/L) 9 L ALT (9 - 52 U/L) 27 Albumin (3.5 - 5.0 g/dL) 3.0 L Hematology CBC w Diff NO MAN DIFF REQ WBC (4.8 - 10.8 /CUMM) 7.9 RBC (4.20 - 5.40 /CUMM) 3.68 L Hgb (12.0 - 16.0 G/DL) 11.0 L Hct (37 - 47 %) 33.7 L MCV (81.0 - 99.0 FL) 91.5 MCH (27.0 - 31.0 PG) 29.9 RDW (11.5 - 14.5 %) 18.9 H Plt Count (130 - 400 /CUMM) 356 MPV (7.4 - 10.4 FL) 8.5 Gran % (42.2 - 75.2 %) 59.1 Lymphocytes % (20.5 - 51.1 %) 24.6 Monocytes % (1.7 - 9.3 %) 8.6 Eosinophils % (0 - 5 %) 6.8 H Basophils % (0.0 - 2.0 %) 0.9 Absolute Granulocytes (1.4 - 6.5 /CUMM) 4.7 Absolute Lymphocytes (1.2 - 3.4 /CUMM) 1.9 Absolute Monocytes (0.10 - 0.60 /CUMM) 0.7 H Absolute Eosinophils (0.0 - 0.7 /CUMM) 0.5 Absolute Basophils (0.0 - 0.2 /CUMM) 0.1 PUBS MCHC (33.0 - 37.0 G/DL) 32.6 L
--- NOTE | 2016-11-11 12:30 | NUR ---
All BP medications held this morning which include- labetolol, norvasc, and cozaar- since pt's SBP has been in the 130's. Dr. Alex Cordero and Dr. Yoo notifies- holding parameters for BP medications to remain the same. Will continue to monitor BP and adjust medications per orders.
[2016-11-11] MEDS ORDERED: LABETALOL HCL200 M1 PO (13:19)
--- NOTE | 2016-11-11 13:41 | Patient Discharge Instructions ---
Discharge Instructions General Discharge Information You were seen/treated for: Hypertensive crisis Watch for these problems: Blood pressure that is greater than 180/110 Severe headache Chest pain or difficulty breathing Weakness or numbness in your arms, legs or face Difficulty speaking Special Instructions: Please follow up with your primary care physician Dr. Damon and substation operator chief Dr. Mariee within one week of discharge. Please follow up with your driller portable Dr. Guardado within two weeks of discharge. If abdominal pain around umbilical hernia worsens, please see Dr. Mcd[facility]iel in [facility] or visit [facility] ED where you had a previous repair surgery. Please follow up Dr. Langford for chronic pain management within 1 week Diet Recommended Diet: Regular no added salt Activity Full Activity/No Limits: Yes Activity Self Limited: No Acute Coronary Syndrome Inclusion Criteria At DC or during hospital stay patient has or had the following: ACS DIAGNOSIS No Discharge Core Measures Meds if any: Prescribed or Continued at Discharge Meds if any: NOT Prescribed or Continued at Discharge Congestive Heart Failure Inclusion Criteria At DC or during hospital stay patient has or had the following: CHF DIAGNOSIS No Discharge Core Measures Meds if any: Prescribed or Continued at Discharge Meds if any: NOT Prescribed or Continued at Discharge Cerebrovascular accident Inclusion Criteria At DC or during hospital stay patient has or had the following: CVA/TIA Diagnosis No Discharge Core Measures Meds if any: Prescribed or Continued at Discharge Meds if any: NOT Prescribed or Continued at Discharge Venous thromboembolism Inclusion Criteria VTE Diagnosis No VTE Type NONE VTE Confirmed by (Test) NONE Discharge Core Measures - Per Current guidelines, there needs to be overlap - treatment for the first 5 days of Warfarin therapy. - If discharged on Warfarin prior to 5 days of - overlap therapy, the patient will need to be - assessed for post discharge needs including - *Post discharge parental anticoagulation - *Warfarin and/or parental anticoagulation education - *Follow up date to check INR post discharge At least 5 days overlap therapy as Inpatient No Meds if any: Prescribed or Continued at Discharge Note: Overlap Therapy is Warfarin and Anticoagulant Meds if any: NOT Prescribed or Continued at Discharge
[2016-11-11 14:00] VITALS: BP 130/72
[2016-11-11 16:00] VITALS: BP 140/82
--- NOTE | 2016-11-11 17:38 | NUR ---
Patient's BP noted to be 162/80 manually. BP medications were helding this morning for a SBP ranging in the 130's. Dr. Juno Kowalski notified and all medications were reviewed by him along with this RN. 100mg of po hydralizine given per his order. (1400 dose of this medications was held). Pt then verbalized to this RN that the timing of this medication will not be followed by her at home since the every 8 hour time schedule makes a dose of the medication due at 0600- Dr. Kowalski notified and medication changes to be discussed with cardiology. Will continue to closely monitor patient.
[2016-11-11 22:35] VITALS: BP 160/80
--- NOTE | 2016-11-11 22:50 | NUR ---
2235 PATIENT ARRIVED TO FLOOR ALERT AND ORIENTED X 3. DENIES CHEST PAIN. ON ROOM AIR STEADY GAIT NOTED. DSGS CLEAN, DRY AND INTACT ASSURANCE OFFICER NOTIFIED OF PATIENTS TEMPERATURE. MEDICATION GIVEN. WILL CONTINUE TO MONITOR
[2016-11-12] VITALS (7 sets, daily range): BP systolic 122–168; BP diastolic 64–92
--- NOTE | 2016-11-12 08:01 | Discharge Summary ---
Visit Information Visit Dates Admission Date: 11/06/16 Discharge Date: 11/13/16 Hospital Course Course Attending Physician: PEGGY WALLER MD Primary Care Physician: CLARA ANGEL MD Consulting Request: 1 Consulting Specialty: Cardiology Consulting Physician: Dr. Navarro Reason for Consult: Hypertensive urgency Consulting Request: 2 Consulting Specialty: Nephrology Consulting Physician: Dr. Guardado Reason for Consult: Peritoneal dialysis / ESRD Consulting Request: 3 Consulting Specialty: General Surgery Consulting Physician: Dr. Valverde Reason for Consult: Umbilical hernia Hospital Course: 31 y/o F with PMHx of ESRD on peritoneal dialysis, uncontrolled HTN with multiple admissions for hypertensive urgency and emergency and CVA with residual left-sided weakness who presented with a severe headache associated with nausea and vomiting, leg swelling (L >> R) and left flank pain. On initial presentation , her blood pressure was found to be markedly elevated to 209/119. She was admitted to the ICU for close monitoring in the setting of hypertensive crisis. Below are the issues that were actively addressed during current admission: #Hypertensive urgency: Renal US was performed to rule out any acute renal process and was negative. Bilateral lower extremity Doppler US was performed to rule out DVT which was negative. Cardiology was consulted and patient's antihypertensive regimen was adjusted according to their recommendations. Blood pressure was monitored closely to make sure that it does not drop too fast. As her blood pressure improved after starting her prior to home antihypertensives and peritoneal dialysis, it was felt that the episode of hypertensive crisis was most likely due to medication and/or peritoneal dialysis noncompliance. Patient' s symptoms resolved with improvement of her blood pressure. * Patient will continue taking her prior to admission antihypertensives including amlodipine 10 mg PO QD, clonidine patch 0.2 mg, losartan 100 mg PO QD and hydralazine 100 mg PO TID on discharge. * She will also continue taking labetalol, but at the lower dose of 200 mg PO BID. #ESRD: Nephrology was consulted for the management of ESRD and patient received peritoneal dialysis according to their recommendations during current hospitalization. #Left-sided pleural effusion: CXR on admission showed small left-sided pleural effusion. Chest ultrasound was performed to see if there was enough fluid for diagnostic thoracentesis, but revealed no safe tap window as the fluid was tiny in amount. CT Chest with IV Contrast, with the injection of contrast with dialysate during peritoneal dialysis, was performed to see if there was any diaphragmatic leakage of peritoneal fluid into the pleural space. The study was negative suggesting that the pleural effusion was most likely secondary to volume overload. Previous course will be done by ICU team course 11/12-11/13 by Brooke Barnes PGY4 Patient was evaluated for abdominal pain while on . She had fever (100.5F) and leukocytosis (15) on 11/11, so perioneal fluid was sent for culture and cell diff count for possible SBP on 11/12. Her WBC was 3. It is not likely to be SBP. It was recommended by nephorlogy not to give anbiotics during dialysis. She remained afebrile and WBC was decreased to 10 on 11/13. However, she c/o worsening abdominal pain related with umbilical hernia, and general surgery was consulted on 11/13. She has noticeable umbilical hernia and it was repaired by Dr. Nichols at [facility] about a year ago, which recurred several months following the repair. Abdominal pain around umbilical hernia is not related to timing or frequency of peritoneal dialysis. Inpatient noncontrast CT abdomen/pelvis scan was considered, but she is going to follow up Dr. Morocho in [facility]. She understands that she needs visit [facility] ED if she develops severe abdominal pain with non reducible hernia to be evaluated and seen by her previous surgeon. She was given instruction to follow up Dr. Morocho very soon after discharge for elective hernia repair. Allergies: Coded Allergies: Iodinated Contrast Media - Oral and (Intermediate, HIVES AND SWELLING 09/20/16) Penicillins (RASH 09/20/16) hydroxyzine (PER PT UNKNOWN 09/20/16) lisinopril (ANGIODEMA 09/20/16) LEIDA Inhibitors (ANGIODEMA 09/20/16) Disposition Summary Disposition Principal Diagnosis: Hypertensive urgency Peritoneal dialysis with ESRD Lt. pleural effusion Additional Diagnosis: Umbilical hernia Discharge Disposition: home health services Discharge Instructions General Discharge Information Code Status: Full Code Patient's Diet: Renal dialysis diet Patient's Activity: Increase as tolerated Follow-Up Instructions/Appts: 1. Please follow up with your primary care physician Dr. Angel and fiberglass pipe covering supervisor Dr. Navarro within one week of discharge. 2. Please follow up with your subassembly assembler, Dr. Guardado within 1-2 weeks of discharge. 3. If abdominal pain around umbilical hernia worsens, please see Dr. Cervantes in [facility] or visit [facility] ED where you had a previous repair surgery. 4.Please follow up Dr. Langford for chronic pain management within 1 week Medications at Discharge Discharge Medications: Continue taking these medications: Amlodipine Besylate (Amlodipine Besylate) 10 MG TABLET 1 Tablet ORAL DAILY Comments: Last Taken:11/10/16 Time:9:20 AM Epoetin Carlos (Epogen) 10,000 UNIT/ML VIAL 10,000 Unit Inject into fatty tissue EVERY 2 WEEKS Comments: NOT GIVEN IN HOSPITAL Losartan (Cozaar) 100 MG TABLET 1 Tablet ORAL DAILY Comments: Last Taken: 11/10/16 Time: 10:30 AM Calcium Carbonate (Calcium Carbonate) 500 MG/5 ML ORAL.SUSP 20 Milliliters ORAL TWICE DAILY Qty = 500 Comments: Last Taken: 11/13/16 Time: 10:00 AM Calcitriol (Calcitriol) 0.5 MCG CAPSULE 1.5 Capsule ORAL TWICE DAILY Qty = 120 Comments: Last Taken: 11/13/16 Time: 10:00 AM Alprazolam (Xanax) 0.5 MG TABLET 1 Tablet ORAL DAILY NEEDED as needed for ANXIETY Comments: Last Taken: 11/13/16 Time: 3:55 AM Aspirin (Aspirin*) 81 MG TAB.CHEW 81 Milligram ORAL DAILY Qty = 60 Comments: Last Taken:11/13/16 Time:10:00 AM Hydralazine HCl (Hydralazine HCl) 100 MG TABLET 1 Tablet ORAL THREE TIMES DAILY Comments: Last Taken: 11/13/16 Time: 6:15 AM Ondansetron HCl (Zofran) 4 MG TABLET 1 Tablet ORAL Every 6-8 Hours as Needed as needed for NAUSEA Comments: Last Taken: 11/11/16 Time: 7:00 PM Clonidine (Clonidine) 0.2 MG/24 HOUR PATCH.TDWK 1 Patch On the skin EVERY WEDNESDAY Qty = 4 Comments: NOT GIVEN IN HOSPITAL Labetalol HCl (Labetalol HCl) 200 MG TABLET 1 Tablet ORAL TWICE DAILY Qty = 60 Comments: Last Taken: 11/12/16 Time: 9:00 PM This prescription has been renewed Start taking the following new medications: Hydromorphone HCl (Dilaudid) 2 MG TABLET 1 Tablet ORAL EVERY SIX HOURS NEEDED Qty = 12 No Refills Comments: Last Taken:11/13/16 Time:12:10 PM The following medications have been changed: Old: Labetalol HCl (Labetalol HCl) 300 MG TABLET 1.5 Tablet ORAL THREE TIMES DAILY New: Labetalol HCl (Labetalol HCl) 200 MG TABLET 1 Tablet ORAL TWICE DAILY Qty = 60 Comments: PER PT VERBALLY CONFIRMED Last Taken: 09/23/16 Time: 10:00 AM Copies To: PRESLEY NICHOLS MD; PEGGY WALLER MD; SUSAN COTA,ABRAHAM Corona; Ilene NAVARRO MD; STANLEY COTA,CLARA Attending Review Statement Documenting Attending: PEGGY WALLER MD Other Findings: The patient was seen and agree with the plan of care upon discharge.
--- NOTE | 2016-11-12 10:49 | NUR ---
NURSING NOTE: CBC AND 1ST SET OF BLOOD CULTURES DRAWN BY SAIDA USING VEIN FINDER. BODY FLUID CULTURE/COUNT DRAWN FROM PERITONEAL DILAYSIS CATH DONE BY NURSE EDUCATOR SHELLEY FLUID CLEAR, CONT TO MONITOR. DR WALLER AND MARCELLA COTA #[id number] AWARE THAT ONLY ABLE TO GET 1ST SET OF BLOOD CULTURES. CONT TO MONITOR.
--- NOTE | 2016-11-12 10:58 | PN- Housestaff ---
NISHI COTA,ISAAC 11/12/16 0913: Subjective Follow-up For: HTN urgency Complaints: pain scale (0-10) (04/05) Subjective: She is scheduled to get peritoneal dialysis today morning. She had fever 101F last night She c/o abdominal pain around umbilical hernia and bilateral flank pain 05/06 Review of Systems Constitutional: Reports: chills, fever. Denies: weakness. EENTM: Reports: no symptoms. Cardiovascular: Denies: chest pain, palpitations, peripheral edema, syncope. Respiratory: Denies: cough, short of breath, sputum production, wheezing. Gastrointestinal: Reports: see HPI, abdominal pain. Denies: diarrhea, nausea, vomiting. Genitourinary: Reports: see HPI (on peritoneal dialysis). Musculoskeletal: Reports: back pain. Skin: Reports: no symptoms. Neurological/Psychological: Reports: no symptoms. Hematologic/Endocrine: Reports: no symptoms. Objective Last 24 Hrs of Vital Signs/I&O Vital Signs Date Time Temp Pulse Resp B/P Pulse O2 O2 Flow FiO2 Ox Delivery Rate 11/12 1403 78 160/90 11/12 1402 78 160/90 11/12 0918 78 138/80 11/12 0906 78 138/78 11/12 0757 98.1 70 20 150/81 96 Room Air 11/12 0630 98.6 70 20 136/84 11/12 0630 98.6 70 20 136/84 96 Room Air 11/12 0052 99.2 78 20 158/64 94 Room Air 11/11 2244 101.5 11/11 2235 Room Air 11/11 2235 101.5 78 20 160/80 93 Room Air 11/11 2120 90 160/90 11/11 2118 90 160/90 11/11 1723 74 162/80 11/11 1600 98.8 76 20 140/82 98 Room Air 11/11 1600 98 Room Air Intake & Output 11/12 1600 11/12 0800 11/12 0000 Intake Total 200 240 Output Total 500 300 500 Balance -500 -100 -260 Intake, IV 0 0 Intake, Oral 200 240 Number 1 0 Bowel Movements Output, 500 300 500 Dialysate Output, Urine 0 0 Patient 162 lb 165 lb Weight Physical Exam General Appearance: Alert, Oriented X3, Cooperative, Mild Distress Skin: No Rashes, No Breakdown, No Significant Lesion HEENT: Atraumatic, PERRLA, EOMI Neck: Supple, No JVD, No LAD Lymphatic: Cervical nl Cardiovascular: Regular Rate, Normal S1, Normal S2, No Murmurs Lungs: Clear to Auscultation, Normal Air Movement Abdomen: Soft, umbilical hernia-reducible manually, tender around hernia lesion Neurological: Normal Gait, Normal Speech, Strength at 5/5 X4 Ext Extremities: No Edema, Normal Pulses, No Tenderness/Swelling Vascular: Normal Pulses, Pulses Symmetrical Current Medications: Current Medications Sig/Bryan Start time Last Medication Dose Route Stop Time Status Admin Acetaminophen 650 MG .STK-MED ONE 11/11 2237 DC PO 11/11 2238 Acetaminophen 650 MG Q6P PRN 11/06 1745 AC 11/11 PO 2244 Alprazolam 0.5 MG DAILY PRN 11/06 1800 AC 11/12 PO 11/13 1759 0110 Amlodipine Besylate 10 MG DAILY 11/08 1000 AC 11/10 PO 0922 Aspirin 81 MG DAILY 11/07 1000 AC 11/12 PO 0901 Calcitriol 0.75 MCG BID 11/06 2200 AC 11/12 PO 0901 Calcium Carbonate 2,000 MG BID 11/06 2200 AC 11/12 PO 0900 Clonidine 1 PAT Q168 11/14 1000 AC TOP Docusate Sodium 100 MG BID PRN 11/11 1130 AC 11/12 PO 1402 Epoetin Carlos 10,000 UNIT Q 2 WEEKS 11/20 1000 AC SC Glycerin/Mineral Oil 1 UDAY TID PRN 11/11 1915 AC TOP Hydralazine HCl 100 MG Q8 11/08 0915 AC 11/12 PO 1402 Hydromorphone HCl 0.4 MG ONCE ONE 11/12 1300 DC 11/12 IV PUSH 11/12 1301 1315 Hydromorphone HCl 1 MG Q4P PRN 11/12 1230 AC IV Hydromorphone HCl 0.6 MG Q4P PRN 11/12 1115 DC 11/12 IV 1136 Hydromorphone HCl 1 MG Q4P PRN 11/11 0902 DC 11/12 IV 0844 Labetalol HCl 200 MG BID 11/09 2200 AC 11/11 PO 2120 Losartan Potassium 100 MG DAILY 11/07 1000 AC 11/10 PO 1031 Magnesium Oxide 400 MG BID 11/12 1000 AC 11/12 PO 1134 Ondansetron HCl 4 MG Q6P PRN 11/08 1315 AC 11/11 PO 1911 Oxycodone HCl 5 MG Q6P PRN 11/12 0900 DC PO Oxycodone/ 1 TAB Q6P PRN 11/06 1745 DC Acetaminophen PO Senna/Docusate Sodium 1 TAB BID PRN 11/11 1130 AC 11/12 PO 1403 Tramadol HCl 50 MG Q6P PRN 11/12 0915 AC PO Last 24 Hrs of Lab/Ashwin Results Last 24 Hrs of Labs/Mics: Laboratory Tests 11/12/16 1050: Fluid WBC 3, Fld Total RBCs Counted 0 11/12/16 1025: CBC w Diff NO MAN DIFF REQ, RBC 3.74 L, MCV 90.9, MCH 29.5, RDW 18.9 H, MPV 8.6, Gran % 77.1 H, Lymphocytes % 6.2 L, Monocytes % 2.6, Eosinophils % 14.1 H, Basophils % 0 L, Absolute Granulocytes 9.1 H, Absolute Lymphocytes 0.7 L, Absolute Monocytes 0.3, Absolute Eosinophils 1.7, Absolute Basophils 0, PUBS MCHC 32.4 L 11/12/16 0700: Anion Gap 14, Estimated GFR 4 L, BUN/Creatinine Ratio 3.9 L, Magnesium 1.8 Microbiology 11/12 1050 BODY FLUID: Body Fluid Culture - RES 11/12 1050 BODY FLUID: Gram Stain - RES 11/12 1025 BLOOD: Blood Culture - RECD 11/12 0919 BLOOD: Blood Culture - COLB Lines/Diet/Fluids Lines: peripheral lines, dialysis catheter Assessment/Plan Assessment: 31 y/o F with PMHx of ESRD on peritoneal dialysis, CVA with residual left-sided weakness and uncontrolled HTN who presents with hypertensive urgency. 1. Hypertensive urgency: Pt was transferred from ICU to general medicine floor. Her blood pressure is controlled with 5 diffent medications; amlodipine 10 mg PO daily, clonidine 0.1 mg patch, hydralazine 100 mg PO TID, labetalol 200 mg PO BID and losartan 100 mg PO QD. Continue blood pressure control per cardiology. 2. Fever with leukocytosis with peritoneal dialysis/ESRD: she had fever of 101.5F last night with WBC 15.2 on 11/11. Repeat CBC in am was 11.8. Nephorology consult is appreciated. Regarding concern about spontaneous bacterial peritonitis, her peritoneal fluid was sent for culture and cell count diff. WBC only 3. Will monitor pt without IV antibiotics and CBC in am. Continue peritoneal dialysis with epogen injection weekly. 3. Lt. pleural effusion: CT chest with contrast done on 11/10 showing small left pleural effusion with compressive atelectasis in the left lower lobe. No evidence of communication of the peritoneal fluid with the left pleural effusion. Continue pain medication for Lt. sided back pain possibly related with pleural effusion. 4. Umbilical hernia: She has a significant umbilical hernia which is reducible manually. She has a skin change in hernia area and c/o pain related with hernia. Monitor symptoms with CBC, she needs a referral to general surgery for repair. DVT ppx: mechanical full code Problem List: 1. HYPERTENSIVE URGENCY 2. Pleural effusion, left 3. End-stage renal disease on peritoneal dialysis 4. Umbilical hernia Pain Ratin Pain Location: Abdominal pain related with umbilical hernia Bilateral flank pain Lt. sided back pain Pain Goal: Pain 7 or less Pain Plan: IV dilaudid 7-10 po percocet 4-6 po tyrenol 1-3 Tomorrow's Labs & Rationales: CBC - monitor leukocytosis BEP - on peritoneal dialysis DVT/Prophylaxis: mechanical Consulting Request: Consulting Specialty: Nephrology Consulting Physician: Dr. Guardado Reason for Consult: ESRD on PD Discharge Plan Discharge Disposition: home Stable for Discharge? No Anticipated Discharge (Day): tomorrow If Discharged Today/In 24 Hrs: CMR done PEGGY WALLER MD 11/12/16 1627: Attending MD Review Statement Attending Statement Attending MD Statement: examined this patient, discuss w/resident/PA/CORRECTION OFFICER [place] OR [place], agreed w/resident/PA/CORRECTION OFFICER [place] OR [place], reviewed EMR data (avail), discussed with nursing, amended to note Attending Assessment/Plan: The patient was seen and discussed with house staff. Concern regarding leukocytosis and fever c/w peritonitis. Appreciate Nephrology input. Antibiotics as per Nephrology.
[2016-11-12 11:19] LABS: ABSOLUTE BASOPHIL COUNT 0 /CUMM (0.0-0.2); ABSOLUTE EOSINOPHIL COUNT 1.7 /CUMM (0.0-0.7); ABSOLUTE GRANULOCYTE CT 9.1 /CUMM (1.4-6.5); ABSOLUTE LYMPH COUNT 0.7 /CUMM (1.2-3.4); ABSOLUTE MONOCYTE COUNT 0.3 /CUMM (0.10-0.60); BASOPHIL % 0 % (0.0-2.0); GRANULOCYTE % 77.1 % (42.2-75.2); MEAN CORPUSCULAR HGB 29.5 PG (27.0-31.0); MEAN CORPUSCULAR HGB CONC 32.4 G/DL (33.0-37.0); MEAN CORPUSCULAR VOLUME 90.9 FL (81.0-99.0); MEAN PLATELET VOLUME 8.6 FL (7.4-10.4); PLATELET COUNT 278 /CUMM (130-400); RBC DISTRIBUTION WIDTH 18.9 % (11.5-14.5); RED BLOOD CELL CT 3.74 /CUMM (4.20-5.40); WHITE BLOOD CELL COUNT 11.8 /CUMM (4.8-10.8)
[2016-11-12 11:45] LABS: EOSINOPHIL % 14.1 % (0-5)
--- NOTE | 2016-11-12 14:05 | PN- Nephrology ---
Assessment/Plan Assessment: 1. ESRD - on PD 2. Uncontrolled hypertension with hypertensive emergency -significantly improved 3. Left pleural effusion - no apparent leakage from peritoneum per imaging study 4. Periumbilical pain with no evidence for peritonitis; likely related to her periumbilical hernia 5. Fever last evening with transient leukocytosis - etiology uncertain Suggestion: 1. Resume her regular PD regimen 2. No need for intraperitoneal antibiotics 3. Continue to monitor closely; if fever and periumbilical pain persist would ask general surgery to see her 4. Blood culture results pending Subjective Subjective: Patient had a fever to 101.5 late last evening but has been afebrile since then. She is having some periumbilical pain and tenderness around the area of her umbilical hernia, which is reducible. The pain is somewhat better today compared to last evening. CBC yesterday showed an elevated white count of 15.2, down to 11.8 today. Peritoneal fluid looks grossly clear and indeed there were only 3 WBCs on cell count. Culture sent, results pending. Blood pressures are much improved. Objective Vital Signs and I&Os Vital Signs Date Time Temp Pulse Resp B/P Pulse O2 O2 Flow FiO2 Ox Delivery Rate 11/12 0918 78 138/80 11/12 0906 78 138/78 11/12 0757 98.1 70 20 150/81 96 Room Air 11/12 0630 98.6 70 20 136/84 11/12 0630 98.6 70 20 136/84 96 Room Air 11/12 0052 99.2 78 20 158/64 94 Room Air 11/11 2244 101.5 11/11 2235 Room Air 11/11 2235 101.5 78 20 160/80 93 Room Air 11/11 2120 90 160/90 11/11 2118 90 160/90 11/11 1723 74 162/80 11/11 1600 98.8 76 20 140/82 98 Room Air 11/11 1600 98 Room Air Intake & Output 11/12 1600 11/12 0400 11/11 1600 11/11 0400 11/10 0400 Intake Total 729 173 9611 300 240 270 Output Total 454 502 4457 900 1100 400 Balance -400 -460 -260 -600 -860 -130 Intake, IV 0 0 Intake, Oral 547 064 8309 300 240 270 Number 1 0 0 Bowel Movements Output, 192 726 3792 900 1100 400 Dialysate Output, Urine 0 0 Patient 162 lb 165 lb 165 lb 169 lb Weight Physical Exam: General: Well-developed white female in NAD Skin: No rash or jaundice HEENT: Conjunctivae pink, sclerae anicteric, mucous membranes dry Neck: Without masses or thyromegaly, no supraclavicular or cervical adenopathy Chest: Clear with diminished breath sounds at bases Heart: Regular rate and rhythm without S3 or rub Abdomen: Soft with tenderness over and around her periumbilical hernia which is easily reducible and slightly discolored. No palpable masses or organomegaly. No signs of peritoneal irritation. Extremities: Without cyanosis or edema Neuro: No focal findings, no asterixis or myoclonus Current Medications: Current Medications Sig/Bryan Start time Last Medication Dose Route Stop Time Status Admin Acetaminophen 650 MG .STK-MED ONE 11/11 2237 DC PO 11/11 223 Acetaminophen 650 MG Q6P PRN 11/06 1745 AC 11/11 PO 2244 Alprazolam 0.5 MG DAILY PRN 11/06 1800 AC 11/12 PO 11/13 1759 0110 Amlodipine Besylate 10 MG DAILY 11/08 1000 AC 11/10 PO 0922 Aspirin 81 MG DAILY 11/07 1000 AC 11/12 PO 0901 Calcitriol 0.75 MCG BID 11/06 2200 AC 11/12 PO 0901 Calcium Carbonate 2,000 MG BID 11/06 2200 AC 11/12 PO 0900 Clonidine 1 PAT Q168 11/14 1000 AC TOP Docusate Sodium 100 MG BID PRN 11/11 1130 AC 11/12 PO 1402 Epoetin Carlos 10,000 UNIT Q 2 WEEKS 11/20 1000 AC SC Glycerin/Mineral Oil 1 UDAY TID PRN 11/11 1915 AC TOP Hydralazine HCl 100 MG Q8 11/08 0915 AC 11/12 PO 1402 Hydromorphone HCl 0.4 MG ONCE ONE 11/12 1300 DC 11/12 IV PUSH 11/12 1301 1315 Hydromorphone HCl 1 MG Q4P PRN 11/12 1230 AC IV Hydromorphone HCl 0.6 MG Q4P PRN 11/12 1115 DC 11/12 IV 1136 Hydromorphone HCl 1 MG Q4P PRN 11/11 0902 DC 11/12 IV 0844 Labetalol HCl 200 MG BID 11/09 2200 AC 11/11 PO 2120 Losartan Potassium 100 MG DAILY 11/07 1000 AC 11/10 PO 1031 Magnesium Oxide 400 MG BID 11/12 1000 AC 11/12 PO 1134 Ondansetron HCl 4 MG Q6P PRN 11/08 1315 AC 11/11 PO 1911 Oxycodone HCl 5 MG Q6P PRN 11/12 0900 DC PO Oxycodone/ 1 TAB Q6P PRN 11/06 1745 DC Acetaminophen PO Senna/Docusate Sodium 1 TAB BID PRN 11/11 1130 AC 11/12 PO 1403 Tramadol HCl 50 MG Q6P PRN 11/12 0915 AC PO Results Pertinent Lab Results: Laboratory Tests 11/12 11/12 11/12 1050 1025 0700 Chemistry Sodium (137 - 145 mmol/L) 131 L Potassium (3.5 - 5.1 mmol/L) 4.2 Chloride (98 - 107 mmol/L) 88 L Carbon Dioxide (22 - 30 mmol/L) 28 Anion Gap (5 - 16) 14 BUN (7 - 17 mg/dL) 41 H Creatinine (0.5 - 1.0 mg/dL) 10.5 *H Estimated GFR (>60 ml/min) 4 L BUN/Creatinine Ratio (7 - 25 %) 3.9 L Magnesium (1.6 - 2.3 mg/dL) 1.8 Hematology CBC w Diff NO MAN DIFF REQ WBC (4.8 - 10.8 /CUMM) 11.8 H RBC (4.20 - 5.40 /CUMM) 3.74 L Hgb (12.0 - 16.0 G/DL) 11.0 L Hct (37 - 47 %) 34.0 L MCV (81.0 - 99.0 FL) 90.9 MCH (27.0 - 31.0 PG) 29.5 RDW (11.5 - 14.5 %) 18.9 H Plt Count (130 - 400 /CUMM) 278 MPV (7.4 - 10.4 FL) 8.6 Gran % (42.2 - 75.2 %) 77.1 H Lymphocytes % (20.5 - 51.1 %) 6.2 L Monocytes % (1.7 - 9.3 %) 2.6 Eosinophils % (0 - 5 %) 14.1 H Basophils % (0.0 - 2.0 %) 0 L Absolute Granulocytes (1.4 - 6.5 /CUMM) 9.1 H Absolute Lymphocytes (1.2 - 3.4 /CUMM) 0.7 L Absolute Monocytes (0.10 - 0.60 /CUMM) 0.3 Absolute Eosinophils (0.0 - 0.7 /CUMM) 1.7 Absolute Basophils (0.0 - 0.2 /CUMM) 0 PUBS MCHC (33.0 - 37.0 G/DL) 32.4 L Other Body Source Fluid WBC (0 - 5 /CUMM) 3 Fld Total RBCs Counted (0 /CUMM) 0 11/11 11/10 0430 0500 Chemistry Sodium (137 - 145 mmol/L) 134 L 135 L Potassium (3.5 - 5.1 mmol/L) 4.5 4.5 Chloride (98 - 107 mmol/L) 90 L 93 L Carbon Dioxide (22 - 30 mmol/L) 30 31 H Anion Gap (5 - 16) 14 11 BUN (7 - 17 mg/dL) 41 H 35 H Creatinine (0.5 - 1.0 mg/dL) 10.8 *H 11.5 *H Estimated GFR (>60 ml/min) 4 L 4 L Glucose (65 - 99 mg/dL) 96 90 Calcium (8.4 - 10.2 mg/dL) 8.9 8.2 L Phosphorus (2.5 - 4.5 mg/dL) 5.0 H 5.4 H Magnesium (1.6 - 2.3 mg/dL) 1.7 1.6 Total Bilirubin (0.2 - 1.3 mg/dL) 0.5 0.5 AST (14 - 36 U/L) 8 L 5 L ALT (9 - 52 U/L) 21 22 Albumin (3.5 - 5.0 g/dL) 3.2 L 2.7 L Hematology CBC w Diff NO MAN DIFF REQ NO MAN DIFF REQ WBC (4.8 - 10.8 /CUMM) 15.2 H 9.7 RBC (4.20 - 5.40 /CUMM) 3.82 L 3.64 L Hgb (12.0 - 16.0 G/DL) 11.2 L 10.9 L Hct (37 - 47 %) 34.9 L 33.1 L MCV (81.0 - 99.0 FL) 91.4 90.9 MCH (27.0 - 31.0 PG) 29.3 29.8 RDW (11.5 - 14.5 %) 19.1 H 19.1 H Plt Count (130 - 400 /CUMM) 361 336 MPV (7.4 - 10.4 FL) 8.5 8.4 Gran % (42.2 - 75.2 %) 95.1 H 72.7 Lymphocytes % (20.5 - 51.1 %) 3.3 L 12.4 L Monocytes % (1.7 - 9.3 %) 1.2 L 9.4 H Eosinophils % (0 - 5 %) 0.3 4.7 Basophils % (0.0 - 2.0 %) 0.1 0.8 Absolute Granulocytes (1.4 - 6.5 /CUMM) 14.5 H 7.1 H Absolute Lymphocytes (1.2 - 3.4 /CUMM) 0.5 L 1.2 Absolute Monocytes (0.10 - 0.60 /CUMM) 0.2 0.9 H Absolute Eosinophils (0.0 - 0.7 /CUMM) 0 0.5 Absolute Basophils (0.0 - 0.2 /CUMM) 0 0.1 PUBS MCHC (33.0 - 37.0 G/DL) 32.0 L 32.8 L
--- NOTE | 2016-11-13 00:13 | NUR ---
LATE ENTRY: AT 194 PT WAS CRYING IN ROOM. STATED "IM IN A LOT OF PAIN. CAN YOU CALL THE DOCTOR, I WANT TO SPEAK WITH THEM." LAST PAIN MED IV DILAUDID 1 MG GIVEN AT 1919. DRY PAN CHARGER PAGED. HUYEN KRAUSE RESPONDED AND CAME TO FLOOR. EXPLAINED UNABLE TO GIVE MORE PAIN MEDS. PT COMPLAINING OF PAIN AT UMBILICUS AND AFRAID HERNIA WAS INCARCERATED. DRY PAN CHARGER INSISTED IT WAS NOT AND TRIED TO CALM PT DOWN. PT CALM AND THEN UPSET. DRY PAN CHARGER STATED WILL CHECK WITH SURGEON. PT VERY UPSET AND CLAIMED DRY PAN CHARGER SUGGESTED SHE WAS DRUG SEEKING. PT STATED SHE WOULD CALL PT [facility]. FITNESS CENTRE MANAGER NOTIFIED.
[2016-11-13 00:44] VITALS: BP 138/82
[2016-11-13 07:43] LABS: ABSOLUTE BASOPHIL COUNT 0 /CUMM (0.0-0.2); ABSOLUTE EOSINOPHIL COUNT 1.7 /CUMM (0.0-0.7); ABSOLUTE GRANULOCYTE CT 6.9 /CUMM (1.4-6.5); ABSOLUTE LYMPH COUNT 0.9 /CUMM (1.2-3.4); ABSOLUTE MONOCYTE COUNT 0.4 /CUMM (0.10-0.60); BASOPHIL % 0 % (0.0-2.0); GRANULOCYTE % 69.6 % (42.2-75.2); HEMATOCRIT 34.4 % (37-47); MEAN CORPUSCULAR HGB 30.1 PG (27.0-31.0); MEAN CORPUSCULAR HGB CONC 32.8 G/DL (33.0-37.0); MEAN CORPUSCULAR VOLUME 91.7 FL (81.0-99.0); MEAN PLATELET VOLUME 8.9 FL (7.4-10.4); PLATELET COUNT 259 /CUMM (130-400); RBC DISTRIBUTION WIDTH 19.3 % (11.5-14.5); RED BLOOD CELL CT 3.76 /CUMM (4.20-5.40)
[2016-11-13 08:32] LABS: EOSINOPHIL % 17.4 % (0-5)
--- NOTE | 2016-11-13 08:33 | PN- Housestaff ---
NISHI COTA,ISAAC 11/13/16 0833: Subjective Follow-up For: Hypertensive urgency ESRD on peritoneal dialysis Fever/leukocytosis Abdominal pain with umbilical hernia Complaints: pain scale (0-10) (8/10) Subjective: She c/o 8/10 periumbilical pain which was not reducible this morning. She denies any fever/chills. She is doing q4 peritoneal dialysis as inpatient and 8-10 hour nightly dialysis at home. Her peritoneal dialysis fluid was clear. Review of Systems Constitutional: Denies: chills, fever, weakness. EENTM: Reports: no symptoms. Cardiovascular: Denies: chest pain, edema, orthopena, palpitations, peripheral edema. Respiratory: Denies: cough, short of breath, sputum production, wheezing. Gastrointestinal: Reports: abdominal pain. Denies: diarrhea, nausea, vomiting. Genitourinary: Reports: no symptoms. Musculoskeletal: Reports: no symptoms. Skin: Reports: no symptoms. Neurological/Psychological: Reports: no symptoms. Hematologic/Endocrine: Reports: no symptoms. Objective Last 24 Hrs of Vital Signs/I&O Vital Signs Date Time Temp Pulse Resp B/P Pulse O2 O2 Flow FiO2 Ox Delivery Rate 11/13 1420 76 132/68 11/13 1006 136/78 11/13 0956 78 136/76 11/13 0845 98.5 71 20 126/74 94 11/13 0614 164/100 11/13 0044 98.7 75 20 138/82 93 Room Air 11/13 0000 Room Air 11/12 2105 82 166/88 11/12 2104 80 166/88 11/12 2021 98.6 71 18 168/92 93 11/12 1609 98.2 80 20 122/80 98 11/12 1600 96 Room Air Intake & Output 11/13 1600 11/13 0800 11/13 0000 Intake Total 930 480 300 Output Total 600 1500 100 Balance 330 -1020 200 Intake, IV 30 Intake, Oral 900 480 300 Number 0 Bowel Movements Output, 600 1500 100 Dialysate Output, Urine 0 Patient 158 lb Weight Physical Exam General Appearance: Alert, Oriented X3, Cooperative, Mild Distress Skin: No Rashes, No Breakdown, No Significant Lesion HEENT: Atraumatic, PERRLA, EOMI, Mucous Membr. moist/pink Neck: Supple, No JVD, No LAD Lymphatic: Cervical nl Cardiovascular: Regular Rate, Normal S1, Normal S2, No Murmurs Lungs: Clear to Auscultation, Normal Air Movement Abdomen: Normal Bowel Sounds, tender all over around umbilical hernia, not able to reduce hernia Neurological: Normal Speech, Strength at 5/5 X4 Ext, Normal Tone, Sensation Intact, Cranial Nerves 3-12 NL Extremities: No Edema, Normal Pulses, No Tenderness/Swelling Vascular: Normal Pulses, Pulses Symmetrical Current Medications: Current Medications Sig/Bryan Start time Last Medication Dose Route Stop Time Status Admin Acetaminophen 650 MG Q6P PRN 11/06 1745 AC 11/11 PO 2244 Alprazolam 0.5 MG DAILY PRN 11/06 1800 AC 11/13 PO 11/13 1759 0354 Amlodipine Besylate 10 MG DAILY 11/08 1000 AC 11/10 PO 0922 Aspirin 81 MG DAILY 11/07 1000 AC 11/13 PO 0957 Calcitriol 0.75 MCG BID 11/06 2200 AC 11/13 PO 0958 Calcium Carbonate 2,000 MG BID 11/06 2200 AC 11/13 PO 0957 Clonidine 1 PAT Q168 11/14 1000 AC TOP Docusate Sodium 100 MG BID PRN 11/11 1130 AC 11/12 PO 1402 Epoetin Carlos 10,000 UNIT Q 2 WEEKS 11/20 1000 AC SC Glycerin/Mineral Oil 1 UDAY TID PRN 11/11 191 AC TOP Hydralazine HCl 100 MG Q8 11/08 0915 AC 11/13 PO 0614 Hydromorphone HCl 1 MG Q4P PRN 11/12 1230 AC 11/13 IV 1209 Labetalol HCl 200 MG BID 11/09 2200 AC 11/12 PO 2105 Losartan Potassium 100 MG DAILY 11/07 1000 AC 11/10 PO 1031 Magnesium Oxide 400 MG BID 11/12 1000 AC 11/13 PO 0958 Ondansetron HCl 4 MG Q6P PRN 11/08 1315 AC 11/11 PO 1911 Senna/Docusate Sodium 1 TAB BID PRN 11/11 1130 AC 11/12 PO 1403 Tramadol HCl 50 MG Q6P PRN 11/12 0915 AC PO Last 24 Hrs of Lab/Ashwin Results Last 24 Hrs of Labs/Mics: Laboratory Tests 11/13/16 0625: Anion Gap 12, Estimated GFR 5 L, BUN/Creatinine Ratio 4.1 L, CBC w Diff NO MAN DIFF REQ, RBC 3.76 L, MCV 91.7, MCH 30.1, RDW 19.3 H, MPV 8.9, Gran % 69.6, Lymphocytes % 9.0 L, Monocytes % 4.0, Eosinophils % 17.4 H, Basophils % 0 L, Absolute Granulocytes 6.9 H, Absolute Lymphocytes 0.9 L, Absolute Monocytes 0.4, Absolute Eosinophils 1.7, Absolute Basophils 0, PUBS MCHC 32.8 L Assessment/Plan Assessment: 31 y/o F with PMHx of ESRD on peritoneal dialysis, CVA with residual left-sided weakness and uncontrolled HTN who presents with hypertensive urgency. 1. Hypertensive urgency: Pt was transferred from ICU to general medicine floor. Her blood pressure is controlled with 5 diffent medications; amlodipine 10 mg PO daily, clonidine 0.1 mg patch, hydralazine 100 mg PO TID, labetalol 200 mg PO BID and losartan 100 mg PO QD. Continue blood pressure control per cardiology. 2. Peritoneal dialysis/ESRD: she had fever of 101.5F last night with WBC 15.2 on 11/11. Repeat CBC in am was 11.8. Nephorology consult is appreciated. Regarding concern about spontaneous bacterial peritonitis, her peritoneal fluid was sent for culture and cell count diff. WBC was only 3. She didn't get any antibiotics. WBC became 10 on 11/13 and she remained afebrile overnight. She will go home with nightly schedule peritoneal dialysis and follow up a furnace repair mechanic. 3. Lt. pleural effusion: CT chest with contrast done on 11/10 showing small left pleural effusion with compressive atelectasis in the left lower lobe. No evidence of communication of the peritoneal fluid with the left pleural effusion. Continue pain medication for Lt. sided back pain possibly related with pleural effusion. 4. Umbilical hernia: Today she c/o worsening abdominal pain related with umbilical hernia, and general surgery was consulted on 11/13. She has noticeable umbilical hernia and it was repaired by Dr. Morocho at [facility] about a year ago, which recurred several months following the repair. Abdominal pain around umbilical hernia is not related to timing or frequency of peritoneal dialysis. Inpatient noncontrast CT abdomen/pelvis scan was considered, but she is going to follow up Dr. Morocho in [facility]. She understands that she needs visit [facility] ED if she develops severe abdominal pain with non reducible hernia to be evaluated and seen by her previous surgeon. She was given instruction to follow up Dr. Morocho very soon after discharge for elective hernia repair. DVT ppx: mechanical full code Problem List: 1. Hypertensive urgency 2. End-stage renal disease on peritoneal dialysis 3. Umbilical hernia Pain Ratin Pain Location: Umbilical hernia area Pain Goal: Pain 7 or less Pain Plan: IV dilaudid, po tramadol, tyrenol Tomorrow's Labs & Rationales: DC today DVT/Prophylaxis: pharmacological Consulting Request: Consulting Specialty: Nephrology Consulting Physician: Dr. Guardado Reason for Consult: ESRD on PD Discharge Plan Discharge Disposition: home Stable for Discharge? Yes Anticipated Discharge (Day): today PEGGY WALLER MD 11/13/16 1724: Attending MD Review Statement Attending Statement Attending MD Statement: examined this patient, discuss w/resident/PA/KEYPUNCH OPERATOR, agreed w/resident/PA/KEYPUNCH OPERATOR, reviewed EMR data (avail), discussed with nursing, amended to note Attending Assessment/Plan: The patient was seen and discussed with house staff. Agree with OP follow-up for abdominal hernia in [place] with her original surgeon. OK to discharge to home today.
[2016-11-13 08:45] VITALS: BP 126/74
[2016-11-13 09:56] VITALS: BP 136/76
--- NOTE | 2016-11-13 12:16 | Cons- General Surgery ---
PAULA BERNARD 11/13/16 1202: General Information and HPI Consulting Request Date of Consult: 11/13/16 Requested By: PEGGY WALLER MD Reason for Consult: umbilical hernia Source of Information: patient, old records Exam Limitations: no limitations History of Present Illness: This 31 year old white female with hx of ESRD on peritoneal dialysis, CVA with residual left-sided weakness, and uncontrolled HTN who presented with hypertensive urgency, is reporting pain and tenderness involving her known umbilical hernia. She reports past surgical hx of section involving midline, with subsequent umbilical hernia that was repaired about a year ago at [facility], which recurred several months following the repair. She reports the umbilical hernia has been somewhat reducible for the past 6 months, since she noticed it's recurrence. She notices the hernia sometimes buldges more during her peritoneal dialysis, which has been more frequent during this admission. Currently she has some nausea, but this is not a new symptom for her. She is reportedly passing gas and had a bm 2 days ago. General surgery consult requested for further evaluation. Allergies/Medications Allergies: Coded Allergies: Iodinated Contrast Media - Oral and (Intermediate, HIVES AND SWELLING 09/20/16) Penicillins (RASH 09/20/16) hydroxyzine (PER PT UNKNOWN 09/20/16) lisinopril (ANGIODEMA 09/20/16) LEIDA Inhibitors (ANGIODEMA 09/20/16) Current Medications: Current Medications Sig/Bryan Start time Last Medication Dose Route Stop Time Status Admin Acetaminophen 650 MG Q6P PRN 11/06 1745 AC 11/11 PO 2244 Alprazolam 0.5 MG DAILY PRN 11/06 1800 AC 11/13 PO 11/13 1759 0354 Amlodipine Besylate 10 MG DAILY 11/08 1000 AC 11/10 PO 0922 Aspirin 81 MG DAILY 11/07 1000 AC 11/13 PO 0957 Calcitriol 0.75 MCG BID 11/06 2200 AC 11/13 PO 0958 Calcium Carbonate 2,000 MG BID 11/06 2200 AC 11/13 PO 0957 Clonidine 1 PAT Q168 11/14 1000 AC TOP Docusate Sodium 100 MG .STK-MED ONE 11/12 1359 DC PO 11/12 1400 Docusate Sodium 100 MG BID PRN 11/11 1130 AC 11/12 PO 1402 Epoetin Carlos 10,000 UNIT Q 2 WEEKS 11/20 1000 AC SC Glycerin/Mineral Oil 1 UDAY TID PRN 11/11 1915 AC TOP Hydralazine HCl 100 MG Q8 11/08 0915 AC 11/13 PO 0614 Hydromorphone HCl 2 MG .STK-MED ONE 11/12 1441 DC IV 11/12 1442 Hydromorphone HCl 0.4 MG ONCE ONE 11/12 1300 DC 11/12 IV PUSH 11/12 1301 1315 Hydromorphone HCl 1 MG Q4P PRN 11/12 1230 AC 11/13 IV 0827 Hydromorphone HCl 0.6 MG Q4P PRN 11/12 1115 DC 11/12 IV 1136 Labetalol HCl 200 MG BID 11/09 2200 AC 11/12 PO 2105 Losartan Potassium 100 MG DAILY 11/07 1000 AC 11/10 PO 1031 Magnesium Oxide 400 MG BID 11/12 1000 AC 11/13 PO 0958 Ondansetron HCl 4 MG Q6P PRN 11/08 1315 AC 11/11 PO 1911 Oxycodone HCl 5 MG Q6P PRN 11/12 0900 DC PO Senna/Docusate Sodium 1 TAB BID PRN 11/11 1130 AC 11/12 PO 1403 Tramadol HCl 50 MG Q6P PRN 11/12 0915 AC PO Past History Medical History Blood Transfusion Hx: No Neurological: CVA (January 2013), BASAL GANGLIA lACUNAR stroke Basal ganglia hemorhage, right January 2013 Left Basal ganglia stroke September 2013 L occipital infarct acute up 6 of little stroke in March 2015. Hemorrhagic stroke in September 2013 at [facility]. In February 2013, a right basal ganglia hemorrhagic CVA. In 2012, she had been transferred to [place] and ultimately to [facility]. 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 child, parent Services at Home: None Primary Language: Kuwaiti Smoking Status: Current Everyday Smoker ETOH Use: denies use Illicit Drug Use: denies illicit drug use Living Will? yes Functional Ability ADLs Independent: dressing, eating, toileting, bathing. Ambulation: independent IADLs Independent: shopping, housework, finances, food prep, telephone, transportation , medication admin. Review of Systems Review of Systems: admits: nausea, robson-umbilical pain denies: vomiting, chills/sweats (currently, although she had some a few days ago reportedly) Exam & Diagnostic Data Vital Signs and I&O Vital Signs Date Time Temp Pulse Resp B/P Pulse O2 O2 Flow FiO2 Ox Delivery Rate 11/13 1006 136/78 11/13 0956 78 136/76 11/13 0845 98.5 71 20 126/74 94 11/13 0614 164/100 11/13 0044 98.7 75 20 138/82 93 Room Air 11/13 0000 Room Air 11/12 2105 82 166/88 11/12 2104 80 166/88 11/12 2021 98.6 71 18 168/92 93 11/12 1609 98.2 80 20 122/80 98 11/12 1600 96 Room Air 11/12 1403 78 160/90 11/12 1402 78 160/90 Intake & Output 11/13 1600 11/13 0800 11/13 0000 11/12 1600 11/12 0800 11/12 0000 Intake Total 480 300 850 200 240 Output Total 400 1500 100 500 300 500 Balance -400 -1020 200 350 -100 -260 Intake, IV 50 0 0 Intake, Oral 480 300 800 200 240 Number 0 1 0 Bowel Movements Output, 400 1500 100 500 300 500 Dialysate Output, Urine 0 0 0 Patient 158 lb 162 lb 165 lb Weight Physical Exam: General - alert & oriented x 3. comfortable. no acute distress. Abdomen - obese. bowel sounds appreciated. low transverse scar noted. umbilical hernia seems reducible, but is somewhat tender in doing so. no acute abdominal findings. peritoneal dialysis catheter noted exiting distant from the umbilical hernia site. Assessment/Plan Assessment/Plan This 31 year old white female with PMHx of ESRD on peritoneal dialysis, CVA with residual left-sided weakness and uncontrolled HTN who presented with hypertensive urgency, and somewhat more noticeable umbilical hernia since being admitted and since increased frequency of peritoneal dialysis may consider noncontrast CT scan a/p if symptoms worsen to exclude incarcerated bowel the umbilical hernia seems to be reducible at this time it makes sense that the bulging of the hernia correlates with peritoneal dialysis frequency monitor symptoms d/w , who agrees with plan may consider outpatient follow up for hernia recurrence (apparently she had it repaired initially by someone at [facility]) Consult Acknowledgment - Thank you for your consult request. CHARLEY MAKIUMA 11/14/16 1107: General Information and HPI Allergies/Medications Home Med List: Alprazolam (Xanax) 0.5 MG TABLET 1 TAB PO DAILY NEEDED PRN ANXIETY ( Reported) Amlodipine Besylate 10 MG TABLET 1 TAB PO DAILY BP (Reported) Aspirin (Aspirin*) 81 MG TAB.CHEW 81 MG PO DAILY heart health Calcitriol 0.5 MCG CAPSULE 1.5 CAP PO BID SUPPLEMENT (Reported) Calcium Carbonate 500 MG/5 ML ORAL.SUSP 20 ML PO BID SUPPLEMENT (Reported) Clonidine 0.2 MG/24 HOUR PATCH.TDWK 1 PAT TOP QWED BP (Reported) Epoetin Carlos (Epogen) 10,000 UNIT/ML VIAL 10,000 UNIT SC Q2W ANEMIA (Reported ) Hydralazine HCl 100 MG TABLET 1 TAB PO TID HTN (Reported) Hydromorphone HCl (Dilaudid) 2 MG TABLET 1 TAB PO Q6P pain 7-10 Labetalol HCl 200 MG TABLET 1 TAB PO BID HIGH BLOOD PRESSURE Labetalol HCl 200 MG TABLET 1 TAB PO BID HIGH BLOOD PRESSURE Losartan (Cozaar) 100 MG TABLET 1 TAB PO DAILY HEART (Reported) Ondansetron HCl (Zofran) 4 MG TABLET 1 TAB PO Q6-8P PRN NAUSEA (Reported) Assessment/Plan Consult Acknowledgment - Thank you for your consult request. Attending MD Review Statement Attending Statement Attending MD Statement: discuss w/resident/PA/NEWCOMER HOSTESS, agreed w/resident/PA/NEWCOMER HOSTESS, reviewed EMR data (avail), reviewed images
--- NOTE | 2016-11-13 14:41 | PN- Nephrology ---
Assessment/Plan Assessment: 1. ESRD - on PD 2. Uncontrolled hypertension with hypertensive emergency -significantly improved 3. Left pleural effusion - no apparent leakage from peritoneum per imaging study 4. Periumbilical pain with no evidence for peritonitis; likely related to her periumbilical hernia 5. Fever - transient - spontaneously resolved Suggestion: 1. Will continue current PD regimen 2. Consider discharge home with instructions to contact her general surgeon ( who did her original hernia repair) should her abdominal pain worsen or persist Subjective Subjective: Patient continues to have some abdominal discomfort although it appears to be less intense. Her hernia is fully reducible. She has not been febrile since and her blood and fluid cultures are negative. WBC is down to 10.0. Blood pressures have been quite good. Objective Vital Signs and I&Os Vital Signs Date Time Temp Pulse Resp B/P Pulse O2 O2 Flow FiO2 Ox Delivery Rate 11/13 1420 76 132/68 11/13 1006 136/78 11/13 0956 78 136/76 11/13 0845 98.5 71 20 126/74 94 11/13 0614 164/100 11/13 0044 98.7 75 20 138/82 93 Room Air 11/13 0000 Room Air 11/12 2105 82 166/88 11/12 2104 80 166/88 11/12 2021 98.6 71 18 168/92 93 11/12 1609 98.2 80 20 122/80 98 11/12 1600 96 Room Air Intake & Output 11/13 1600 11/13 0400 11/12 1600 11/12 0400 11/11 1600 11/11 0400 Intake Total 755 759 0735 240 1040 300 Output Total 1600 400 235 914 6086 900 Balance -1120 -100 450 -460 -260 -600 Intake, IV 50 0 Intake, Oral 097 576 3196 240 1040 300 Number 1 0 0 Bowel Movements Output, 1600 400 724 448 7517 900 Dialysate Output, Urine 0 0 Patient 158 lb 162 lb 165 lb 165 lb Weight Physical Exam: General: Well-developed white female in NAD Skin: No rash or jaundice HEENT: Conjunctivae pink, sclerae anicteric, mucous membranes dry Neck: Without masses or thyromegaly, no supraclavicular or cervical adenopathy Chest: Clear with diminished breath sounds at bases Heart: Regular rate and rhythm without S3 or rub Abdomen: Soft with tenderness over and around her periumbilical hernia which is easily reducible and slightly discolored. No palpable masses or organomegaly. No signs of peritoneal irritation. Extremities: Without cyanosis or edema Neuro: No focal findings, no asterixis or myoclonus Current Medications: Current Medications Sig/Bryan Start time Last Medication Dose Route Stop Time Status Admin Acetaminophen 650 MG Q6P PRN 11/06 1745 AC 11/11 PO 2244 Alprazolam 0.5 MG DAILY PRN 11/06 1800 AC 11/13 PO 11/13 1759 0354 Amlodipine Besylate 10 MG DAILY 11/08 1000 AC 11/10 PO 0922 Aspirin 81 MG DAILY 11/07 1000 AC 11/13 PO 0957 Calcitriol 0.75 MCG BID 11/06 2200 AC 11/13 PO 0958 Calcium Carbonate 2,000 MG BID 11/06 2200 AC 11/13 PO 0957 Clonidine 1 PAT Q168 11/14 1000 AC TOP Docusate Sodium 100 MG BID PRN 11/11 1130 AC 11/12 PO 1402 Epoetin Carlos 10,000 UNIT Q 2 WEEKS 11/20 1000 AC SC Glycerin/Mineral Oil 1 UDAY TID PRN 11/11 1915 AC TOP Hydralazine HCl 100 MG Q8 11/08 0915 AC 11/13 PO 0614 Hydromorphone HCl 2 MG .STK-MED ONE 11/12 1441 DC IV 11/12 1442 Hydromorphone HCl 1 MG Q4P PRN 11/12 1230 AC 11/13 IV 1209 Labetalol HCl 200 MG BID 11/09 2200 AC 11/12 PO 2105 Losartan Potassium 100 MG DAILY 11/07 1000 AC 11/10 PO 1031 Magnesium Oxide 400 MG BID 11/12 1000 AC 11/13 PO 0958 Ondansetron HCl 4 MG Q6P PRN 11/08 1315 AC 11/11 PO 1911 Senna/Docusate Sodium 1 TAB BID PRN 11/11 1130 AC 11/12 PO 1403 Tramadol HCl 50 MG Q6P PRN 11/12 0915 AC PO Results Pertinent Lab Results: Laboratory Tests 11/13 11/12 0625 1050 Chemistry Sodium (137 - 145 mmol/L) 131 L Potassium (3.5 - 5.1 mmol/L) 4.2 Chloride (98 - 107 mmol/L) 87 L Carbon Dioxide (22 - 30 mmol/L) 32 H Anion Gap (5 - 16) 12 BUN (7 - 17 mg/dL) 41 H Creatinine (0.5 - 1.0 mg/dL) 9.9 *H Estimated GFR (>60 ml/min) 5 L BUN/Creatinine Ratio (7 - 25 %) 4.1 L Hematology CBC w Diff NO MAN DIFF REQ WBC (4.8 - 10.8 /CUMM) 10.0 RBC (4.20 - 5.40 /CUMM) 3.76 L Hgb (12.0 - 16.0 G/DL) 11.3 L Hct (37 - 47 %) 34.4 L MCV (81.0 - 99.0 FL) 91.7 MCH (27.0 - 31.0 PG) 30.1 RDW (11.5 - 14.5 %) 19.3 H Plt Count (130 - 400 /CUMM) 259 MPV (7.4 - 10.4 FL) 8.9 Gran % (42.2 - 75.2 %) 69.6 Lymphocytes % (20.5 - 51.1 %) 9.0 L Monocytes % (1.7 - 9.3 %) 4.0 Eosinophils % (0 - 5 %) 17.4 H Basophils % (0.0 - 2.0 %) 0 L Absolute Granulocytes (1.4 - 6.5 /CUMM) 6.9 H Absolute Lymphocytes (1.2 - 3.4 /CUMM) 0.9 L Absolute Monocytes (0.10 - 0.60 /CUMM) 0.4 Absolute Eosinophils (0.0 - 0.7 /CUMM) 1.7 Absolute Basophils (0.0 - 0.2 /CUMM) 0 PUBS MCHC (33.0 - 37.0 G/DL) 32.8 L Other Body Source Fluid WBC (0 - 5 /CUMM) 3 Fld Total RBCs Counted (0 /CUMM) 0 11/12 11/12 1025 0700 Chemistry Sodium (137 - 145 mmol/L) 131 L Potassium (3.5 - 5.1 mmol/L) 4.2 Chloride (98 - 107 mmol/L) 88 L Carbon Dioxide (22 - 30 mmol/L) 28 Anion Gap (5 - 16) 14 BUN (7 - 17 mg/dL) 41 H Creatinine (0.5 - 1.0 mg/dL) 10.5 *H Estimated GFR (>60 ml/min) 4 L BUN/Creatinine Ratio (7 - 25 %) 3.9 L Magnesium (1.6 - 2.3 mg/dL) 1.8 Hematology CBC w Diff NO MAN DIFF REQ WBC (4.8 - 10.8 /CUMM) 11.8 H RBC (4.20 - 5.40 /CUMM) 3.74 L Hgb (12.0 - 16.0 G/DL) 11.0 L Hct (37 - 47 %) 34.0 L MCV (81.0 - 99.0 FL) 90.9 MCH (27.0 - 31.0 PG) 29.5 RDW (11.5 - 14.5 %) 18.9 H Plt Count (130 - 400 /CUMM) 278 MPV (7.4 - 10.4 FL) 8.6 Gran % (42.2 - 75.2 %) 77.1 H Lymphocytes % (20.5 - 51.1 %) 6.2 L Monocytes % (1.7 - 9.3 %) 2.6 Eosinophils % (0 - 5 %) 14.1 H Basophils % (0.0 - 2.0 %) 0 L Absolute Granulocytes (1.4 - 6.5 /CUMM) 9.1 H Absolute Lymphocytes (1.2 - 3.4 /CUMM) 0.7 L Absolute Monocytes (0.10 - 0.60 /CUMM) 0.3 Absolute Eosinophils (0.0 - 0.7 /CUMM) 1.7 Absolute Basophils (0.0 - 0.2 /CUMM) 0 PUBS MCHC (33.0 - 37.0 G/DL) 32.4 L 11/11 0430 Chemistry Sodium (137 - 145 mmol/L) 134 L Potassium (3.5 - 5.1 mmol/L) 4.5 Chloride (98 - 107 mmol/L) 90 L Carbon Dioxide (22 - 30 mmol/L) 30 Anion Gap (5 - 16) 14 BUN (7 - 17 mg/dL) 41 H Creatinine (0.5 - 1.0 mg/dL) 10.8 *H Estimated GFR (>60 ml/min) 4 L Glucose (65 - 99 mg/dL) 96 Calcium (8.4 - 10.2 mg/dL) 8.9 Phosphorus (2.5 - 4.5 mg/dL) 5.0 H Magnesium (1.6 - 2.3 mg/dL) 1.7 Total Bilirubin (0.2 - 1.3 mg/dL) 0.5 AST (14 - 36 U/L) 8 L ALT (9 - 52 U/L) 21 Albumin (3.5 - 5.0 g/dL) 3.2 L Hematology CBC w Diff NO MAN DIFF REQ WBC (4.8 - 10.8 /CUMM) 15.2 H RBC (4.20 - 5.40 /CUMM) 3.82 L Hgb (12.0 - 16.0 G/DL) 11.2 L Hct (37 - 47 %) 34.9 L MCV (81.0 - 99.0 FL) 91.4 MCH (27.0 - 31.0 PG) 29.3 RDW (11.5 - 14.5 %) 19.1 H Plt Count (130 - 400 /CUMM) 361 MPV (7.4 - 10.4 FL) 8.5 Gran % (42.2 - 75.2 %) 95.1 H Lymphocytes % (20.5 - 51.1 %) 3.3 L Monocytes % (1.7 - 9.3 %) 1.2 L Eosinophils % (0 - 5 %) 0.3 Basophils % (0.0 - 2.0 %) 0.1 Absolute Granulocytes (1.4 - 6.5 /CUMM) 14.5 H Absolute Lymphocytes (1.2 - 3.4 /CUMM) 0.5 L Absolute Monocytes (0.10 - 0.60 /CUMM) 0.2 Absolute Eosinophils (0.0 - 0.7 /CUMM) 0 Absolute Basophils (0.0 - 0.2 /CUMM) 0 PUBS MCHC (33.0 - 37.0 G/DL) 32.0 L
[2016-11-13] MEDS ORDERED: DILAUDID2 M1 PO (15:16)
[2016-11-13] MEDS ORDERED: LABETALOL HCL200 M1 PO (15:30)
[2016-11-13 16:12] VITALS: BP 144/72
== END 2016-11-13 16:18 | DRG 199 ==
LOC: ENRESERVDT → ENRESERVTM → ERH 11:01 → 2NB 13:31 → ERHI 13:31 → CRI 13:31 → ERHI 15:01 → CRI 17:19 → 2NB 11-11 22:24
PROVIDERS: Dermatology; Emergency Medicine; Internal Medicine; Internal Medicine Cardiovascular Disease; Student in an Organized Health Care Education/Training Program; ADMIT Internal Medicine Pulmonary Disease
PROC: 3E1M39Z Irrigation of Peritoneal Cavity using Dialysate, Percutaneous Approach (ICD-10-PCS; principal; 2016-11-08)
DX: I16.1 Hypertensive emergency (principal); I69.354 Hemiplegia and hemiparesis following cerebral infarction affecting left non-dominant side; E78.5 Hyperlipidemia, unspecified; E21.3 Hyperparathyroidism, unspecified; F41.9 Anxiety disorder, unspecified; E66.9 Obesity, unspecified; Z68.31 Body mass index [BMI] 31.0-31.9, adult; N18.6 End stage renal disease; I27.2 Other secondary pulmonary hypertension; I13.2 Hypertensive heart and chronic kidney disease with heart failure and with stage 5 chronic kidney disease, or end stage renal disease; I50.32 Chronic diastolic (congestive) heart failure; F17.200 Nicotine dependence, unspecified, uncomplicated; I07.1 Rheumatic tricuspid insufficiency; K42.9 Umbilical hernia without obstruction or gangrene
CPT/HCPCS: 2NBP; 87075; CCU; 36415; 76775; 82436; 87040; 93005; 93010; 93970; 96374; 96375; 96376; 99291; J0360; J1170; J1200; J1644; J2060; J2405; J2765; J2920; J3101; J3490

== ENCOUNTER 2016-12-10 10:42 | Inpatient (IN) | payer OTHER ==
[~2016-12-10] VITALS: Ht 154.9 cm; Wt 79.4 kg
[~2016-12-10 10:42] MED LIST changes: +CLONIDINE1 EAC1 TOP; +LABETALOL HCL200 M1 PO
--- NOTE | 2016-12-10 12:10 | RADIOLOGY REPORT ---
EXAMINATION: XR PORTABLE CHEST CLINICAL INFORMATION: Pleural effusion. Shortness of breath. COMPARISON: CT chest from 11/10/2016. Chest x-ray from 11/09/2016. TECHNIQUE: Portable AP view of the chest was obtained. FINDINGS: There has been resolution of the left pleural effusion previously noted. A small right pleural effusion appears visualized currently. No convincing consolidation. Mild platelike opacities in the mid to lower right lung are now visualized. Mild central pulmonary vascular prominence is evident. The heart size is slightly enlarged. There is calcification of the aortic knob. No acute osseous abnormalities are evident. IMPRESSION: Interval resolution of the left-sided pleural effusion. Small right-sided pleural effusion is now visualized with some mild platelike right mid to lower lobe opacities suggesting atelectasis. Mild central pulmonary vascular prominence without overt edema. Mild cardiomegaly.
[2016-12-10 12:21] LABS: ABSOLUTE BASOPHIL COUNT 0 /CUMM (0.0-0.2); ABSOLUTE EOSINOPHIL COUNT 0.7 /CUMM (0.0-0.7); ABSOLUTE GRANULOCYTE CT 9.8 /CUMM (1.4-6.5); ABSOLUTE LYMPH COUNT 1.1 /CUMM (1.2-3.4); ABSOLUTE MONOCYTE COUNT 0.6 /CUMM (0.10-0.60); BASOPHIL % 0.3 % (0.0-2.0); EOSINOPHIL % 5.8 % (0-5); GRANULOCYTE % 80.4 % (42.2-75.2); HEMATOCRIT 33.7 % (37-47); MEAN CORPUSCULAR HGB 29.5 PG (27.0-31.0); MEAN CORPUSCULAR HGB CONC 32.8 G/DL (33.0-37.0); MEAN PLATELET VOLUME 8.1 FL (7.4-10.4); PLATELET COUNT 345 /CUMM (130-400); RBC DISTRIBUTION WIDTH 20.1 % (11.5-14.5); RED BLOOD CELL CT 3.74 /CUMM (4.20-5.40); WHITE BLOOD CELL COUNT 12.2 /CUMM (4.8-10.8)
--- NOTE | 2016-12-10 12:31 | ED GENERAL ADULT ---
History of Present Illness General Chief Complaint: General Adult Stated Complaint: BIBA SOB,HEAD/NECK PAIN,PER PT HIGH BP 220/160 Source: patient, old records Exam Limitations: no limitations Allergies Coded Allergies: Iodinated Contrast Media - Oral and (Intermediate, HIVES AND SWELLING 09/20/16) Penicillins (RASH 09/20/16) hydroxyzine (PER PT UNKNOWN 09/20/16) lisinopril (ANGIODEMA 09/20/16) LEIDA Inhibitors (ANGIODEMA 09/20/16) Reconcile Medications Alprazolam (Xanax) 0.5 MG TABLET 1 TAB PO DAILY NEEDED PRN ANXIETY ( Reported) Amlodipine Besylate 10 MG TABLET 1 TAB PO DAILY BP (Reported) Aspirin (Aspirin*) 81 MG TAB.CHEW 81 MG PO DAILY heart health Calcitriol 0.5 MCG CAPSULE 1.5 CAP PO BID SUPPLEMENT (Reported) Calcium Carbonate 500 MG/5 ML ORAL.SUSP 20 ML PO BID SUPPLEMENT (Reported) Clonidine 0.2 MG/24 HOUR PATCH.TDWK 1 PAT TOP QWED BP (Reported) Epoetin Carlos (Epogen) 10,000 UNIT/ML VIAL 10,000 UNIT SC Q2W ANEMIA (Reported ) Hydralazine HCl 100 MG TABLET 1 TAB PO TID HTN (Reported) Labetalol HCl 200 MG TABLET 1 TAB PO TID BP (Reported) Losartan (Cozaar) 100 MG TABLET 1 TAB PO DAILY HEART (Reported) Ondansetron HCl (Zofran) 4 MG TABLET 1 TAB PO Q6-8P PRN NAUSEA (Reported) Triage Note: PT COMPLAINS OF HEADACHE AND NECK PAIN THAT STARTED AT 0100. PT BP ELEVATED AT TRIAGE , STATES THAT SHE DID NOT TAKE HER BP MED TODAY DUE TO NAUSEA Triage Nurses Notes Reviewed? yes : No Patient currently breastfeeds: No HPI: 31-year-old female with multiple medical comorbidities, end-stage renal disease on peritoneal dialysis nightly, history of malignant hypertension, here with complaints of not feeling well since yesterday evening. She vomited a few times last night and this morning. She took a double dose of her labetalol and hydralazine last night because she felt her blood pressure was elevated. She completed her dialysis last night. She was unable taking her medications this morning due to nausea. She has persistent headache which is diffuse, feel short of breath, body aches. She denies any worsening visual changes. She denies any worsening edema of her lower extremities or abdomen. She denies any fever or flulike illness. She was admitted last month for same and I have reviewed her previous records. She had a left pleural effusion at that time which has not had any treatment. She sees Dr. Mahan from cardiology and Dr. DAVIS from nephrology. She states that she ran out of her Catapres and has not been wearing the patch since yesterday. She has no confusion or change of mental status. Her manual blood pressure here upon arrival to the room was 300/150 checked in both arms by the nurse. (ARTURO GOLDSTEIN,SUNSHINE) Vital Signs & Intake/Output Vital Signs & Intake/Output Vital Signs Date Time Temp Pulse Resp B/P Pulse O2 O2 Flow FiO2 Ox Delivery Rate 12/10 2022 83 208/100 12/10 2009 82 210/120 12/10 2004 82 210/120 12/10 1955 82 218/120 12/10 1831 98.0 82 16 218/120 98 Room Air 12/10 1809 85 235/130 12/10 1744 85 240/120 12/10 1727 109 240/150 12/10 1709 98.0 105 18 280/158 97 Room Air 12/10 1519 106 260/130 12/10 1409 98.8 106 20 260/130 98 Room Air 12/10 1312 98 248/122 12/10 1242 104 300/150 12/10 1242 104 300/150 12/10 1242 300/150 12/10 1236 104 300/150 12/10 1130 Room Air 12/10 1110 300/150 12/10 1046 98.1 104 18 198/100 95 Room Air Past History Travel History Traveled to [place] past 21 day No Medical History Any Pertinent Medical History? 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 Hemorrhagic stroke in September 2013 at [facility]. In February 2013, a right basal ganglia hemorrhagic CVA. In 2012, she had been transferred to [place] and ultimately to [facility]. EENT: NONE Cardiovascular: hypertension, hyperlipidemia, mitral regurgitation, LVH Respiratory: pneumonia Gastrointestinal: L ABD PERTINEAL PORT UMBILICAL HERNIA Hepatic: NONE Renal: end-stage renal disease on home PERITONEAL dialysis Musculoskeletal: sciatica Psychiatric: anxiety Endocrine: hyperparathyroidism (secondary) Blood Disorders: NONE Cancer(s): NONE TIRE REPAIRER/Reproductive: NONE Other Medical Hx: Obesity Eczema Catheter associated bacteremia with MRSA in September 2014 MRSA peritonitis/Sepsis History of Terrible compliance with Neds and dialysis History of MRSA: Yes History of VRE: No History of CDIFF: No Influenza Vaccine: 06/23/16 Surgical History Surgical History: , umbilical hernia repair tenckhof placement [place] CATH PLACEMENT AND REMOVAL placement of the peritoneal dialysis catheter parathyroidectomy Psychosocial History Who do you live with Father Services at Home None What is your primary language Tajik Tobacco Use: Never used ETOH Use: denies use Illicit Drug Use: denies illicit drug use Family History Family History, If Any: FATHER FH: CAD (coronary artery disease) FH: diabetes mellitus FH: stroke grandmother FH: colon cancer Hx Contributory? No (SUNSHINE SHAVER) Review of Systems Review of Systems Constitutional: Reports: see HPI. EENTM: Reports: no symptoms. Respiratory: Reports: no symptoms. Cardiovascular: Reports: see HPI. GI: Reports: no symptoms. Genitourinary: Reports: no symptoms. Musculoskeletal: Reports: no symptoms. Skin: Reports: no symptoms. Neurological/Psychological: Reports: see HPI. Hematologic/Endocrine: Reports: no symptoms. Immunologic/Allergic: Reports: no symptoms. All Other Systems: Reviewed and Negative (SUNSHINE SHAVER) Physical Exam Physical Exam General Appearance: well developed/nourished Comments: Well-developed well-nourished person Appears mildly uncomfortable HEENT: Normal EENT exam, extraocular motion intact, no nystagmus. Pupils equally round and reactive to light. Nose is atraumatic. Pharynx normal. No swelling or edema. Neck: Supple, no lymphadenopathy, normal range of motion without pain or tenderness Back: Nontender, no CVA tenderness. Full range of motion Cardiovascular: Regular rate and rhythms no murmurs, normal JVP Respiratory: Chest nontender. No respiratory distress. Mildly diminished breath sounds at the left base, otherwise clear. Abdomen: Soft, nontender nondistended, umbilical hernia noted that is soft and reproducible. Small amount of ascites. Extremity: 3+ left lower extremity edema, 2+ right lower extremity edema., no calf tenderness to palpation, normal and equal pulses. Neuro: Alert oriented x3, motor sensory normal, cranial nerves II through XII grossly intact. Skin: No appreciable rash on exposed skin, skin is warm and dry. Psych: Mood and affect is normal, memory and judgment is normal. Core Measures ACS in differential dx? Yes CVA/TIA Diagnosis: No Severe Sepsis Present: No Septic Shock Present: No (ARTURO GOLDSTEIN,SUNSHINE) Progress Differential Diagnoses I considered the following diagnoses in my evaluation of the patient: CVA, TIA, malignant hypertension Diagnostic Imaging: Viewed by Me: Radiology Read. Discussed w/RAD: Radiology Read. CXR Impression: PATIENT: TERI BORRERO PRESENT AGE: 31 PATIENT ACCOUNT NO: [id number] : 87 LOCATION: [facility] ORDERING PHYSICIAN: SUNSHINE GOLDSTEIN SERVICE DATE: 12/10/16 EXAM TYPE: RAD - XRY-PORTABLE CHEST XRAY EXAMINATION: XR PORTABLE CHEST CLINICAL INFORMATION: Pleural effusion. Shortness of breath. COMPARISON: CT chest from 11/10/2016. Chest x-ray from 11/09/2016. TECHNIQUE: Portable AP view of the chest was obtained. FINDINGS: There has been resolution of the left pleural effusion previously noted. A small right pleural effusion appears visualized currently. No convincing consolidation. Mild platelike opacities in the mid to lower right lung are now visualized. Mild central pulmonary vascular prominence is evident. The heart size is slightly enlarged. There is calcification of the aortic knob. No acute osseous abnormalities are evident. IMPRESSION: Interval resolution of the left-sided pleural effusion. Small right-sided pleural effusion is now visualized with some mild platelike right mid to lower lobe opacities suggesting atelectasis. Mild central pulmonary vascular prominence without overt edema. Mild cardiomegaly. DICTATED BY: DAE KNIGHT MD DATE/TIME DICTATED:12/10/16 / 1202 FAX MACHINE REPAIRER:KANDICE Initial ED EKG: NSR, rate (90), LVH, nonspecific ST T wave chg Prior EKG: unchanged Rhythm Strip: normal sinus rhythm Comments: Patient treated with IV hydralazine 20 mg and IV labetalol 20 mg, an inch of Nitropaste, 25 mg of IV Phenergan, transdermal Catapres. She was seen by Dr. Darling who has taken over her care due to her malignant hypertension of 300/150. Her blood pressure was rechecked in both arms and remains persistently elevated at the same level after 2 separate readings. She will require intensive care monitoring. Patient's blood pressure still elevated, given another 10 mg of IV hydralazine. ICU staff is here to admit the patient (SUNSHINE SHAVER) Differential Diagnoses I considered the following diagnoses in my evaluation of the patient: Plan of Care: Orders Procedure Date/time Status Renal Dialysis Diet 12/11 B Active ICU LAB BUNDLE 12/11 0500 Active CBC WITHOUT DIFFERENTIAL 12/11 0500 Active Lab Add-on Test 12/10 1602 Active Pathway - chart 12/10 1559 Active House Staff 12/10 1559 Active Patient Data 12/10 1559 Active Code Status 12/10 1559 Active Admit to inpatient 12/10 1530 Active Patient Data 12/10 1354 Active Intake & Output 12/10 1354 Active TROPONIN LEVEL 12/10 1203 Complete Telemetry/Counter Dish Carrier 12/10 1134 Active MAGNESIUM 12/10 1134 Complete COMPREHENSIVE METABOLIC PANEL 12/10 1134 Complete CBC WITHOUT DIFFERENTIAL 12/10 1134 Complete EKG 12/10 1134 Active Weight 12/10 UNK Active VTE Mechanical Prophylaxis 12/10 UNK Active Vital Signs 12/10 UNK Active Intake & Output 12/10 UNK Active Current Medications Sig/Bryan Start time Last Medication Dose Stop Time Status Admin Clonidine 0.1 MG Q1H 12/10 2100 AC (Catapres) Acetaminophen 650 MG Q4P PRN 12/10 1930 AC (Tylenol) Esmolol HCl 100 MG CONTINOUS INFUSION 12/10 1845 CAN (Brevibloc 100 MG Jaime Inj) Ondansetron HCl 4 MG Q6PRN PRN 12/10 1730 AC (Zofran) Laboratory Tests 12/10/16 1203: Anion Gap 15, Estimated GFR 4 L, BUN/Creatinine Ratio 4.9 L, Glucose 106 H, Calcium 9.6, Magnesium 1.7, Total Bilirubin 0.7, AST 17, ALT 29, Alkaline Phosphatase 116, Troponin I 0.02, Total Protein 6.8, Albumin 3.7, Globulin 3.1, Albumin/Globulin Ratio 1.2, CBC w Diff NO MAN DIFF REQ, RBC 3.74 L, MCV 90.0, MCH 29.5, RDW 20.1 H, MPV 8.1, Gran % 80.4 H, Lymphocytes % 9.0 L, Monocytes % 4.5, Eosinophils % 5.8 H, Basophils % 0.3, Absolute Granulocytes 9.8 H, Absolute Lymphocytes 1.1 L, Absolute Monocytes 0.6, Absolute Eosinophils 0.7, Absolute Basophils 0, PUBS MCHC 32.8 L Comments: 12/10/2016 1:44:05 PM patient's case discussed by me with Dr. Navarro and she is to be admitted to the intensive care unit for management of a hypertensive emergency. Patient has been treated with multiple antihypertensive medications and her blood pressure is beginning to respond. (RAJIV COTA,KD Henriquez) Departure Departure Disposition: STILL A PATIENT Condition: Guarded Clinical Impression Primary Impression: Hypertensive emergency Referrals: CLARA ANGEL MD (PCP/Family) Departure Forms: Customer Survey General Discharge Information Admission Note Documentation of Exam: Documentation of any treatments & extenuating circumstances including Concerns Regarding Discharge (functional status, medication knowledge or non-compliance, living conditions, etc.) that warrant an admission rather than observation: ICU monitoring for hypertensive emergency/malignant hypertension. IV antihypertensive medication, peritoneal dialysis, cardiology consult and nephrology consult. Patient is at risk for stroke (SUNSHINE SHAVER) Admission Note Spoke With: Ilene NAVARRO MD Documentation of Exam: Documentation of any treatments & extenuating circumstances including Concerns Regarding Discharge (functional status, medication knowledge or non-compliance, living conditions, etc.) that warrant an admission rather than observation: In addition to the above, the patient has had a history of antihypertensive medication-induced strokes with overly aggressive correction of her blood pressure. This can be avoided with close clinical monitoring of vital signs, heart rhythm and clinical condition. Given the extreme hypertension this patient is at risk of end organ damage including hypertensive encephalopathy, acute coronary syndrome/angina/MO, acute renal failure and stroke/hypertensive intracranial hemorrhage. Her cardiac rhythm should be monitored continuously while being given IV antihypertensive medications due to the possibility of dysrhythmia. Serial troponin should be obtained to rule out myocardial injury. Nephrology consultation should be obtained to continue the patient's dialysis. Given the patient's multiple medical comorbidities I feel her treatment will be complicated and prolonged, requiring a multi-day hospitalization. PA/TECHNOLOGY EDUCATION TEACHER Co-Sign Statement Statement: ED Attending supervision documentation- [X] I saw and evaluated the patient. I have also reviewed all the pertinent lab results and diagnostic results. I agree with the findings and the plan of care as documented in the PA's/TECHNOLOGY EDUCATION TEACHER's documentation. [] I have reviewed the ED Record and agree with the PA's/TECHNOLOGY EDUCATION TEACHER's documentation. [] Additions or exceptions (if any) to the PAs/TECHNOLOGY EDUCATION TEACHER's note and plan are summarized below: [] (RAJIV COTA,KD Henriquez) Critical Care Note Critical Care Note Critical Care Time: 30-74 min (ARTURO GOLDSTEIN,SUNSHINE)
--- NOTE | 2016-12-10 14:36 | History & Physical ---
See Addendum JOSIAH COTA,[facility] 12/10/16 9042: General Information and HPI MD Statement: I have seen and personally examined TERI BORRERO and documented this H& P. The patient is a 31 year old F who presented with a patient stated chief complaint of headache and elevated blood pressure. Source of Information: patient, old records Exam Limitations: no limitations History of Present Illness: This is a 31-year-old female with past medical history of ESRD on peritoneal dialysis, uncontrolled hypertension with multiple admissions for hypertensive urgency and CVA, basal ganglia hemorrhage, recently admitted to [facility] for hypertensive urgency in September 2016, presents with severe headache associated with nausea and vomiting. As per patient this morning around 1 AM she started having severe headache, radiating to her neck associated with nausea and vomiting, which she had 3 episodes after that she was having dry heaves. Reports that her blood pressure was elevated, her gave her labetalol but did not have any improvement in her symptoms. No contains of any blurry visions associated with a headache, no chest pain, no palpitation, no weakness or paresthesias is in any part of the body. Denies any fever or chills, recent sick contacts, recent travels. She denies any noncompliance of medication though through old medical records she has been reported to be having medication noncompliance, she's reports that she has been consistent with her paratonial dialysis. Denies any recent high salt intake. She is ex-smoker, nice alcohol consumption, denies any illicit drug abuse. She was with her , and dependent with her ADLs and IADLs. In the past year she has had been admitted to multiple medical facilities for almost the same symptoms. Allergies/Medications Allergies: Coded Allergies: Iodinated Contrast Media - Oral and (Intermediate, HIVES AND SWELLING 09/20/16) Penicillins (RASH 09/20/16) hydroxyzine (PER PT UNKNOWN 09/20/16) lisinopril (ANGIODEMA 09/20/16) LEIDA Inhibitors (ANGIODEMA 09/20/16) Past History Travel History Traveled to [place] past 21 day No Medical History Neurological: CVA (January 2013), BASAL GANGLIA lACUNAR stroke Basal ganglia hemorhage, right January 2013 Left Basal ganglia stroke September 2013 L occipital infarct acute up 6 of little stroke in March 2015. Hemorrhagic stroke in September 2013 at [facility]. In February 2013, a right basal ganglia hemorrhagic CVA. In 2012, she had been transferred to [place] and ultimately to [facility]. 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 ANALYST/Reproductive: NONE Other Medical Hx: Obesity Eczema Catheter associated bacteremia with MRSA in September 2014 MRSA peritonitis/Sepsis History of Terrible compliance with Neds and dialysis History of MRSA: Yes History of VRE: No History of CDIFF: No Influenza Vaccine: 06/23/16 Surgical History Surgical History: , umbilical hernia repair tenckhof placement [place] CATH PLACEMENT AND REMOVAL placement of the peritoneal dialysis catheter parathyroidectomy Past Family/Social History Family History Relations & Conditions if any FATHER FH: CAD (coronary artery disease) FH: diabetes mellitus FH: stroke grandmother FH: colon cancer Psychosocial History Where do you live? Home Who Do You Live With? child, parent Services at Home: None Primary Language: Stateless Smoking Status: Former Smoker ETOH Use: denies use Illicit Drug Use: denies illicit drug use Living Will? yes Functional Ability ADLs Independent: dressing, eating, toileting, bathing. Ambulation: independent IADLs Independent: shopping, housework, finances, food prep, telephone, transportation , medication admin. Review of Systems Review of Systems Constitutional: Reports: see HPI. Exam & Diagnostic Data Last 24 Hrs of Vital Signs/I&O Vital Signs Date Time Temp Pulse Resp B/P Pulse O2 O2 Flow FiO2 Ox Delivery Rate 12/10 1519 106 260/130 12/10 1409 98.8 106 20 260/130 98 Room Air 12/10 1312 98 248/122 12/10 1242 104 300/150 12/10 1242 104 300/150 12/10 1242 300/150 12/10 1236 104 300/150 12/10 1130 Room Air 12/10 1110 300/150 12/10 1046 98.1 104 18 198/100 95 Room Air Intake & Output 12/10 1600 12/10 0800 12/10 0000 Intake Total Output Total Balance Patient 72.575 kg Weight Physical Exam General Appearance Alert, Oriented X3, Mild Distress Cardiovascular Regular Rate, Normal S1, Normal S2, No Murmurs Lungs Clear to Auscultation Abdomen Normal Bowel Sounds, Soft, No Tenderness Extremities No Clubbing, No Cyanosis, edema 2+ b/l, psoriatic lesion on her left foot. Last 24 Hrs of Labs/Ashwin: Laboratory Tests 12/10/16 1203: Anion Gap 15, Estimated GFR 4 L, BUN/Creatinine Ratio 4.9 L, Glucose 106 H, Calcium 9.6, Magnesium 1.7, Total Bilirubin 0.7, AST 17, ALT 29, Alkaline Phosphatase 116, Troponin I Pending, Total Protein 6.8, Albumin 3.7, Globulin 3.1, Albumin/Globulin Ratio 1.2, CBC w Diff NO MAN DIFF REQ, RBC 3.74 L, MCV 90.0, MCH 29.5, RDW 20.1 H, MPV 8.1, Gran % 80.4 H, Lymphocytes % 9.0 L, Monocytes % 4.5, Eosinophils % 5.8 H, Basophils % 0.3, Absolute Granulocytes 9.8 H, Absolute Lymphocytes 1.1 L, Absolute Monocytes 0.6, Absolute Eosinophils 0.7, Absolute Basophils 0, PUBS MCHC 32.8 L Assessment/Plan Assessment: This is a 31-year-old female with past medical history of ESRD on peritoneal dialysis, uncontrolled hypertension with multiple admissions for hypertensive urgency and CVA, basal ganglia hemorrhage, recently admitted to [facility] for hypertensive urgency in September 2016, presents with severe headache associated with nausea and vomiting. Vitals upon presentation temperature 98.1, pulse 104, respiratory rate 18, blood pressure 198/100, 94, satting in mid 90s on room air. Pertinent labs WBC 12.2, H&H 11 and 33.4, platelets 345, creatinine 10.3, BUN 50 , Chest x-ray showed:, IMPRESSION: Interval resolution of the left-sided pleural effusion. Small right-sided pleural effusion is now visualized with some mild platelike right mid to lower lobe opacities suggesting atelectasis. Mild central pulmonary vascular prominence without overt edema. Mild cardiomegaly. ED course: Patient received IV hydralazine 20 mg and IV Lipitor 20 mg Nitropaste ,, the pressure further creeped up to 300/150. A decision was made to admit her to ICU for close monitoring of hypertensive emergency. We will admit the patient to ICU and monitor for the following conditions: Hypertensive emergency: Keeping in mind patient has history of multiple ischemic strokes, will cautiously manage her blood pressure bringing down no more than 25% initially to prevent any further episodes of ischemic strokes . We'll continue amlodipine 10 mg daily, losartan 10. 0 mg daily, hydralazine 50 mg 3 times daily, clonidine patch 0.2 mg, labetalol 200 mg 3 times a day with close blood pressure monitoring Headache: Likely secondary to dangerously elevated blood pressure, management as per pain pathway. End-stage renal disease on peritoneal dialysis: Patient already seen by nephrology services, all set to receive scheduled cycles of peritoneal dialysis. We'll continue calcium carbonate 1250 mg twice a day Anemia : Likely secondary to end-stage renal disease, H&H 11.0(around baseline) and 33.7 will continue with Epogen. History of anxiety: We'll continue home dose of Xanax 0.5 mg daily. Diet: Renal dialysis DVT prophylaxis : Subcutaneous heparin Patient is full code As Ranked By This Provider Problem List: 1. Hypertensive emergency 2. Pleural effusion, left 3. Full code status 4. End-stage renal disease on peritoneal dialysis Core Measures/Miscellaneous Acute Coronary Syndrome ACS Diagnosis: No Cerebrovascular Accident CVA/TIA Diagnosis: No Congestive Heart Failure CHF Diagnosis: No Venous Thromboembolism VTE Risk Factors: Acute medical illness, Smoking No [facility] VTE prophylaxis d/t: No contraindications No VTE Pharm Prophylaxis d/t: No contraindications VTE Diagnosis: No VTE Type: NONE VTE Confirmed by (Test): NONE Severe Sepsis Severe Sepsis Present: No Septic Shock Septic Shock Present: No Miscellaneous Documentation Primary Care Physician: CLARA ANGEL MD Level of Patient Care: Critical Care (CRI) Consults Needed: Consulting Specialty: Nephrology Consulting Physician: Reason for Consult: Peritoneal Dialysis MARISSA WOOTEN 12/10/16 1803: General Information and HPI Allergies/Medications Home Med list Alprazolam (Xanax) 0.5 MG TABLET 1 TAB PO DAILY NEEDED PRN ANXIETY ( Reported) Amlodipine Besylate 10 MG TABLET 1 TAB PO DAILY BP (Reported) Aspirin (Aspirin*) 81 MG TAB.CHEW 81 MG PO DAILY heart health Calcium Carbonate 500 MG/5 ML ORAL.SUSP 20 ML PO BID SUPPLEMENT (Reported) Clonidine 0.2 MG/24 HOUR PATCH.TDWK 1 PAT TOP QWED BP (Reported) Epoetin Carlos (Epogen) 2,000 UNIT/ML VIAL 2,000 U SC EVERYOTHER W anemia ( Reported) Epoetin Carlos (Epogen) 10,000 UNIT/ML VIAL 10,000 UNIT SC Q2W ANEMIA (Reported ) Hydralazine HCl 100 MG TABLET 1 HTAB PO TID HTN (Reported) Labetalol HCl 200 MG TABLET 1 TAB PO TID HTN (Reported) Losartan (Cozaar) 100 MG TABLET 1 TAB PO DAILY HEART (Reported) Ondansetron HCl (Zofran) 4 MG TABLET 1 TAB PO Q6-8P PRN NAUSEA (Reported) Core Measures/Miscellaneous Septic Shock Septic Shock Present: No Miscellaneous Documentation Attending Case Discussed With: Melanie COTA 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 Has been on peritoneal dialysis since April 2012 she has been hospitalized 36 time since he started her dialysis in April 2012, the most recent one was in [facility] in [facility] from November 23 to November 26 for hypertensive emergency which required ICU admission and IV labetalol. Started her dialysis in 2011 and had multiple hospital admissions admissions hypertensive urgency, and CVA with left-sided weakness, who presented with a severe headache associated with nausea and vomiting, leg swelling (L >> R ). On initial presentation, her blood pressure was found to be markedly elevated to 209/119. She was admitted to the ICU for close monitoring in the setting of hypertensive emergency. Patient reports that she was compliant with her dialysis and medication, after being recently d/c from [place] for HTN urgency. According to her she started feeling " not well" last night around 10 pm, when her symptoms initially started with headache. She did not measure her BP but by midnight due to worsening of her headache she took extra dose of labetalol, with minimal effect on her sympoms. By 3 am (today) she started feeling nausious and started vomitting (X3, mainly food and then recurrent dry hives). She stayed up the whole night due to her palpitation and shortness of breath and orthopnea. patient denies any new focal weakness, change in visual field, CP. In initiall presentation, her BP of 300/150 MMHG. She was given IV pushes of Hydralazine and Labetalol and clonidine patch, and BP remained > 200 sbp. ROS: Constant headache, nausea Physical exam: GA: alert and oriented 3, mild distress, HEET: Normal limits, Heart: S1-S2 no friction rub , Lung: Diminished air movements faint bibasilar crackles, Abd: soft, pertoneal dialysis: wnl, reducible hernia but its slightly tender. Neuro: left side weakness 3/5, right side force is intact and sense is intact, reflexes +2 (brachial and knee) slightly incresed on the left, EOMI intact, Left temporal hemianopia, Extremities: +2 pitting edema (chronic, L>>>>R), Pertinent data: wbc 12.2 left shift no bandemia, and, hematocrit 33.7 MCV 90 platelet count 345 Sodium 138, potassium 5 anion Gap 15 BUN 50 Cr 10.3 (11/13/2016 creatinine 9.9) Mg 1.7 EKG: Sinus, normal axis normal axis, 85 bpm LVH, QT STT segment change Assessment 31-year-old woman was admitted for HTN urgency most possibly due to non- compliance with medication and dialysis . Active problems #1 Hypertensive urgency: * admit ICU for close observation * Vital signs every hour * The patient on IV labetalol with initial goal of decreasing systolic blood pressure up to 20%(sbp around 200 mmgh); * 6 exchanges a day, every 4 hours, all 4.25% regular calcium for the first 24 hours * strict intakes and outputs and daily weights. * Pressure was not controlled with a small consider loading the patient with by mouth clonidine * Please notify nephrology if there is any cloudy fluid, abdominal pain or peripheral cramping from vigorous ultrafiltration. Start her home medication tomorrow. #2 ESRD: Nephrology was consulted for the management of ESRD and patient received peritoneal dialysis according to their recommendations during current hospitalization. * peritoneal dialysis Q4 as it was instructed by nephro fro the first 24 h * Dialysis diet w/ fluid restriction #3 Left and right -sided pleural effusion: #4 umbilical hernia- Stable and reducible. was seen by surgical PA in at Oct 2016. By that time hernia was reducible. The surgery recommended obtaining a noncontrast CT scan a/p if symptoms worsen to exclude incarcerated bowel. #5 Anemia. Given her hypertension, her Epogen will be held for now. #6 History of pleural effusions. These were found not to be related to her CAPD , specifically, there is no evidence of PD fluid going into the pleural space meaning of course that there was no rent in the diaphragm. #7 Leukocytosis w/o obvious source of infection; * watch off Abx * repeat labs in the am Moderate pain pathway Full code MELANIE COTA,PEGGY N 12/11/16 1707: Attending MD Review Statement Attending Statement Attending MD Statement: examined this patient, discuss w/resident/PA/SENIOR MARKETING ASSOCIATE, agreed w/resident/PA/SENIOR MARKETING ASSOCIATE, discussed with family, reviewed EMR data (avail), discussed with nursing, discussed with case mgmt, reviewed images, amended to note Attending Assessment/Plan: I have seen and examined the patient and reviewed all of the available data. I agree with the plan of management as outlined and discussed with the housestaff.
[2016-12-10] MEDS ORDERED: LABETALOL HCL200 M1 PO (15:50)
--- NOTE | 2016-12-10 16:25 | Cons- Nephrology ---
General Information and HPI Consulting Request Date of Consult: 12/10/16 Requested By: Dr. Mariee Reason for Consult: Evaluation and management of end-stage renal disease Source of Information: patient, old records Exam Limitations: no limitations History of Present Illness: This 31-year-old woman is well known to the nephrology service. She has a history of end-stage renal disease due to hypertension. She had an extensive workup in the past with regards to the cause of her hypertension which was all negative. She has been on dialysis since April 2012. She presents now with neck pain severe headache and severe hypertension. She has been hospitalized 36 times since starting dialysis in April 2012. The most recent hospital stay was at [facility] in [facility] from 11/23/2016 to 11/26/2016. The details of that hospital stay are not known. She is not certain that any changes in her medications were made at that time. Her last hospital stay at [facility] was 11/06/2016 through 11/13/2016. Her medications per the dialysis unit are as follows: 1. Amlodipine 10 mg daily 2. Calcitriol 0.5 g capsules, 1.5 g twice daily 3. Losartan 100 mg daily 4. Hydralazine 50 mg 3 times daily 5. Clonidine patch 0.2 mg apply once each week as directed 6. Zofran, 4 mg tablets, 4 mg 3 times a day as needed for nausea/vomiting 7. Labetalol 200 mg 3 times a day 8. Calcium carbonate 1250 mg 20 mL twice a day 9. Labetalol 200 mg 3 times a day 10. Epogen 20,000 units every other week It is not clear that she has been compliant with these medications as noted above, she has had 36 separate admissions to different medical facilities. With regards to her peritoneal dialysis, she receives 11,200 mL of therapy each day. Her target weight is 75 kg. Allergies/Medications Allergies: Coded Allergies: Iodinated Contrast Media - Oral and (Intermediate, HIVES AND SWELLING 09/20/16) Penicillins (RASH 09/20/16) hydroxyzine (PER PT UNKNOWN 09/20/16) lisinopril (ANGIODEMA 09/20/16) LEIDA Inhibitors (ANGIODEMA 09/20/16) Home Med List: Alprazolam (Xanax) 0.5 MG TABLET 1 TAB PO DAILY NEEDED PRN ANXIETY ( Reported) Amlodipine Besylate 10 MG TABLET 1 TAB PO DAILY BP (Reported) Aspirin (Aspirin*) 81 MG TAB.CHEW 81 MG PO DAILY heart health Calcitriol 0.5 MCG CAPSULE 1.5 CAP PO BID SUPPLEMENT (Reported) Calcium Carbonate 500 MG/5 ML ORAL.SUSP 20 ML PO BID SUPPLEMENT (Reported) Clonidine 0.2 MG/24 HOUR PATCH.TDWK 1 PAT TOP QWED BP (Reported) Epoetin Carlos (Epogen) 10,000 UNIT/ML VIAL 10,000 UNIT SC Q2W ANEMIA (Reported ) Hydralazine HCl 100 MG TABLET 1 TAB PO TID HTN (Reported) Labetalol HCl 200 MG TABLET 1 TAB PO TID BP (Reported) Losartan (Cozaar) 100 MG TABLET 1 TAB PO DAILY HEART (Reported) Ondansetron HCl (Zofran) 4 MG TABLET 1 TAB PO Q6-8P PRN NAUSEA (Reported) Current Medications: Current Medications Sig/Bryan Start time Last Medication Dose Route Stop Time Status Admin Clonidine 1 PAT ONCE ONE 12/10 1145 DC 12/10 TOP 12/10 1146 1242 Hydralazine HCl 10 MG ONCE ONE 12/10 1515 DC 12/10 IV 12/10 1516 1519 Hydralazine HCl 0 .STK-MED ONE 12/10 1514 DC .ROUTE Hydralazine HCl 0 .STK-MED ONE 12/10 1229 DC .ROUTE Hydralazine HCl 20 MG ONCE ONE 12/10 1145 DC 12/10 IV 12/10 1146 1242 Hydromorphone HCl 0.4 MG Q6-PRN PRN 12/10 1615 UNVr IV Hydromorphone HCl 0 .STK-MED ONE 12/10 1350 DC .ROUTE Hydromorphone HCl 0.5 MG ONCE ONE 12/10 1345 DC 12/10 IV 12/10 1346 1351 Labetalol HCl 200 MG ONCE ONE 12/10 1600 UNir Sodium Chloride 200 ML IV 12/10 1601 Labetalol HCl 0 .STK-MED ONE 12/10 1229 DC IV Labetalol HCl 20 MG ONCE ONE 12/10 1145 DC 12/10 IV 12/10 1146 1236 Nitroglycerin 0 .STK-MED ONE 12/10 1302 DC TOP Nitroglycerin 0 .STK-MED ONE 12/10 1301 DC TOP Nitroglycerin 1 GM ONCE ONE 12/10 1245 DC / TOP 12/10 1246 1300 Ondansetron HCl 0 .STK-MED ONE 12/10 1404 DC .ROUTE Ondansetron HCl 4 MG ONCE ONE 12/10 1400 DC 12/10 IV 12/10 1401 1409 Promethazine HCl 0 .STK-MED ONE 12/10 1229 DC .ROUTE Promethazine HCl 25 MG ONCE ONE 12/10 1145 DC 12/10 IV 12/10 1146 1236 Review of Systems Review of Systems Constitutional: Reports: malaise, weakness. Denies: chills, diaphoresis, fever. EENTM: Denies: blurred vision, double vision, epistaxis. Cardiovascular: Denies: chest pain, edema, orthopena, palpitations. Respiratory: Reports: short of breath. Denies: cough, hemoptysis, orthopnea, sputum production, stridor. GI: Denies: abdominal pain (or cloudy fluid). Musculoskeletal: Reports: neck pain. Denies: joint pain, joint swelling, muscle pain, muscle stiffness. Skin: Reports: dryness, rash. Denies: jaundice. Neurological/Psychological: Reports: headache. Denies: ataxia, emotional problems. Hematologic/Endocrine: Denies: bruising, bleeding. 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 Hemorrhagic stroke in September 2013 at [facility]. In February 2013, a right basal ganglia hemorrhagic CVA. In 2012, she had been transferred to [place] and ultimately to [facility]. 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 child, parent Services at Home: None Primary Language: Guinean ETOH Use: denies use Illicit Drug Use: denies illicit drug use Living Will? yes Functional Ability ADLs Independent: dressing, eating, toileting, bathing. Ambulation: independent IADLs Independent: shopping, housework, finances, food prep, telephone, transportation , medication admin. Exam & Diagnostic Data Vital Signs and I&O Vital Signs Date Time Temp Pulse Resp B/P Pulse O2 O2 Flow FiO2 Ox Delivery Rate 12/10 1709 98.0 105 18 280/158 97 Room Air 12/10 1519 106 260/130 12/10 1409 98.8 106 20 260/130 98 Room Air 12/10 1312 98 248/122 12/10 1242 104 300/150 12/10 1242 104 300/150 12/10 1242 300/150 12/10 1236 104 300/150 12/10 1130 Room Air 12/10 1110 300/150 12/10 1046 98.1 104 18 198/100 95 Room Air Intake & Output 12/10 1600 12/10 0400 12/09 1600 12/09 0400 12/08 1600 12/08 0400 Intake Total Output Total Balance Patient 160 lb Weight Physical Exam General Appearance: well developed/nourished, no apparent distress, alert, mild distress, obese Head: atraumatic, normal appearance Eyes: Bilateral: PERRL, EOMI. Ears, Nose, Throat: normal pharynx, hearing grossly normal Neck: normal inspection, supple, full range of motion, no midline tenderness Respiratory: chest non-tender, no respiratory distress, decreased breath sounds Cardiovascular: regular rate/rhythm, edema, norml femoral pulses equa Peripheral Pulses: 3+ tibialis posterior (R), 3+ tibialis posterior (L), 3+ dorsalis pedis (R), 3+ dorsalis pedis (L) Gastrointestinal: normal bowel sounds, soft, non-tender, no organomegaly Extremities: normal inspection, normal capillary refill, She has edema Cranial Nerves: normal hearing, normal speech, PERRL Skin: rash Results Pertinent Lab Results: Laboratory Tests 12/10 1203 Chemistry Sodium (137 - 145 mmol/L) 138 Potassium (3.5 - 5.1 mmol/L) 5.0 Chloride (98 - 107 mmol/L) 96 L Carbon Dioxide (22 - 30 mmol/L) 27 Anion Gap (5 - 16) 15 BUN (7 - 17 mg/dL) 50 H Creatinine (0.5 - 1.0 mg/dL) 10.3 *H Estimated GFR (>60 ml/min) 4 L BUN/Creatinine Ratio (7 - 25 %) 4.9 L Glucose (65 - 99 mg/dL) 106 H Calcium (8.4 - 10.2 mg/dL) 9.6 Magnesium (1.6 - 2.3 mg/dL) 1.7 Total Bilirubin (0.2 - 1.3 mg/dL) 0.7 AST (14 - 36 U/L) 17 ALT (9 - 52 U/L) 29 Alkaline Phosphatase (<127 U/L) 116 Troponin I (< 0.11 ng/ml) Pending Total Protein (6.3 - 8.2 g/dL) 6.8 Albumin (3.5 - 5.0 g/dL) 3.7 Globulin (1.9 - 4.2 gm/dL) 3.1 Albumin/Globulin Ratio (1.1 - 2.2 %) 1.2 Hematology CBC w Diff NO MAN DIFF REQ WBC (4.8 - 10.8 /CUMM) 12.2 H RBC (4.20 - 5.40 /CUMM) 3.74 L Hgb (12.0 - 16.0 G/DL) 11.0 L Hct (37 - 47 %) 33.7 L MCV (81.0 - 99.0 FL) 90.0 MCH (27.0 - 31.0 PG) 29.5 RDW (11.5 - 14.5 %) 20.1 H Plt Count (130 - 400 /CUMM) 345 MPV (7.4 - 10.4 FL) 8.1 Gran % (42.2 - 75.2 %) 80.4 H Lymphocytes % (20.5 - 51.1 %) 9.0 L Monocytes % (1.7 - 9.3 %) 4.5 Eosinophils % (0 - 5 %) 5.8 H Basophils % (0.0 - 2.0 %) 0.3 Absolute Granulocytes (1.4 - 6.5 /CUMM) 9.8 H Absolute Lymphocytes (1.2 - 3.4 /CUMM) 1.1 L Absolute Monocytes (0.10 - 0.60 /CUMM) 0.6 Absolute Eosinophils (0.0 - 0.7 /CUMM) 0.7 Absolute Basophils (0.0 - 0.2 /CUMM) 0 PUBS MCHC (33.0 - 37.0 G/DL) 32.8 L Assessment/Plan Assessment/Recommendations Assessment: 1. Accelerated hypertension. At this point, suspect that her compliance with her dialysis and her medications leads much to be desired. She appears to be fluid overloaded. This does not help in terms of hypertension. As noted previously she has had 36 separate admissions. Her compliance renders her not a candidate for transplantation. In addition, she may be helped by being placed on hemodialysis. In discussing this with the patient once again, she does not want the needles. 2. Status post CVA. Her first CVA was a left [place] ganglion lacunar infarct prior to her starting dialysis. Her second stroke was a right basal ganglia hemorrhagic CVA when she was hospitalized at [facility] in January 2013. She required mechanical ventilation at that time. This was in January 2013. She then went to [facility] for a time for rehabilitation after that hospital stay. Her next stroke was in April 2013 at [facility]. She then had another hemorrhagic event in September 2013. 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 3. Secondary hyperparathyroidism she is status post parathyroidectomy in September 2015. This was performed at [facility]. Unfortunately only 2 glands were found. 4. Remote history of sepsis 5. With regards to her umbilical hernia, I'm not certain that the repair of her occurred or if this is a recurrence. This had been planned for [facility] will investigate by going into [employer] and seeing if an operative report is available. 6. Anemia. Given her hypertension, her Epogen will be held for now. 7. History of pleural effusions. These were found not to be related to her CAPD, specifically, there is no evidence of PD fluid going into the pleural space meaning of course that there was no rent in the diaphragm. Recommendations: 1. Will order 6 exchanges a day, every 4 hours, all 4.25% regular calcium for the first 24 hours. 2. Continue with strict intakes and outputs and daily weights. 3. In view of the labetalol shortage, nicardipine would be an acceptable alternative. Likewise, since one suspects that part of this may be related to noncompliance with the clonidine patch, loading the patient with by mouth clonidine may likewise be helpful 4. No Epogen for now 5. Please notify nephrology if there is any cloudy fluid, abdominal pain or peripheral cramping from vigorous ultrafiltration.
--- NOTE | 2016-12-10 16:28 | Cons- Cardiology ---
General Information and HPI Consulting Request Date of Consult: 12/10/16 Requested By: Simón GOLDSTEIN Reason for Consult: Hypertensive Urgency History of Present Illness: This is a 31-year-old female with past medical history of ESRD on peritoneal dialysis, uncontrolled hypertension with multiple admissions for hypertensive urgency and CVA, basal ganglia hemorrhage, recently admitted to [facility] for hypertensive urgency in September 2016, presents with severe headache associated with nausea and vomiting. As per patient this morning around 1 AM she started having severe headache, radiating to her neck associated with nausea and vomiting, which she had 3 episodes after that she was having dry heaves. Reports that her blood pressure was elevated, her gave her labetalol but did not have any improvement in her symptoms. No contains of any blurry visions associated with a headache, no chest pain, no palpitation, no weakness or paresthesias is in any part of the body. Denies any fever or chills, recent sick contacts, recent travels. She denies any noncompliance of medication Allergies/Medications Allergies: Coded Allergies: Iodinated Contrast Media - Oral and (Intermediate, HIVES AND SWELLING 12/21/16) morphine (Intermediate, HIVES 12/21/16) Penicillins (RASH 12/21/16) hydroxyzine (PER PT UNKNOWN 12/21/16) lisinopril (ANGIODEMA 12/21/16) LEIDA Inhibitors (ANGIODEMA 12/21/16) Home Med List: Alprazolam (Xanax) 0.5 MG TABLET 1 TAB PO DAILY NEEDED PRN ANXIETY ( Reported) Amlodipine Besylate 10 MG TABLET 1 TAB PO DAILY BP (Reported) Calcium (Elemental-Fr Calcarb) (Calcium Carbonate) 500 MG/5ML ORAL.SUSP 20 ML PO BID SUPPLEMENT (Reported) Clonidine 0.2 MG/24 HOUR PATCH.TDWK 1 PAT TOP QWED BP (Reported) Epoetin Carlos (Epogen) 10,000 UNIT/ML VIAL 10,000 UNIT SC Q2W ANEMIA (Reported ) Hydralazine HCl 100 MG TABLET 1 TAB PO TID HTN (Reported) Labetalol HCl 100 MG TABLET 3 TAB PO BID Hypertension Losartan (Cozaar) 100 MG TABLET 1 TAB PO DAILY HEART (Reported) Omeprazole 20 MG CAPSULE.DR 1 TAB PO BID ESOPHAGITIS Ondansetron HCl (Zofran) 4 MG TABLET 1 TAB PO Q6-8P PRN NAUSEA (Reported) Current Medications: Current Medications Sig/Bryan Start time Last Medication Dose Route Stop Time Status Admin Clonidine 1 PAT ONCE ONE 12/10 1145 DC 12/10 TOP 12/10 1146 1242 Hydralazine HCl 10 MG ONCE ONE 12/10 1515 DC 12/10 IV 12/10 1516 1519 Hydralazine HCl 0 .STK-MED ONE 12/10 1514 DC .ROUTE Hydralazine HCl 0 .STK-MED ONE 12/10 1229 DC .ROUTE Hydralazine HCl 20 MG ONCE ONE 12/10 1145 DC 12/10 IV 12/10 1146 1242 Hydromorphone HCl 0.4 MG Q6-PRN PRN 12/10 1615 UNVr IV Hydromorphone HCl 0 .STK-MED ONE 12/10 1350 DC .ROUTE Hydromorphone HCl 0.5 MG ONCE ONE 12/10 1345 DC 12/10 IV 12/10 1346 1351 Labetalol HCl 200 MG ONCE ONE 12/10 1600 AC Sodium Chloride 200 ML IV 12/10 1739 Labetalol HCl 0 .STK-MED ONE 12/10 1229 DC IV Labetalol HCl 20 MG ONCE ONE 12/10 1145 DC 12/10 IV 12/10 1146 1236 Nitroglycerin 0 .STK-MED ONE 12/10 1302 DC TOP Nitroglycerin 0 .STK-MED ONE 12/10 1301 DC TOP Nitroglycerin 1 GM ONCE ONE 12/10 1245 DC 12/10 TOP 12/10 1246 1300 Ondansetron HCl 0 .STK-MED ONE 12/10 1404 DC .ROUTE Ondansetron HCl 4 MG ONCE ONE 12/10 1400 DC 12/10 IV 12/10 1401 1409 Promethazine HCl 0 .STK-MED ONE 12/10 1229 DC .ROUTE Promethazine HCl 25 MG ONCE ONE 12/10 1145 DC 12/10 IV 12/10 1146 1236 Past History Travel History Traveled to [place] past 21 day No Medical History Neurological: CVA (January 2013), BASAL GANGLIA lACUNAR stroke Basal ganglia hemorhage, right January 2013 Left Basal ganglia stroke September 2013 L occipital infarct acute up 6 of little stroke in March 2015. Hemorrhagic stroke in September 2013 at [facility]. In February 2013, a right basal ganglia hemorrhagic CVA. In 2012, she had been transferred to [place] and ultimately to [facility]. 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 child, parent Services at Home: None Primary Language: Hebrew ETOH Use: denies use Illicit Drug Use: denies illicit drug use Living Will? yes Functional Ability ADLs Independent: dressing, eating, toileting, bathing. Ambulation: independent IADLs Independent: shopping, housework, finances, food prep, telephone, transportation , medication admin. ECHO Results (as available) Report: CONCLUSIONS 1. Mild aortic sclerosis is present with mild aortic insufficiency. 2. Mitral leaflet thickening is present with mild to moderate anular calcification and mild mitral insufficiency with moderate left atrial enlargement. 3. There is no pericardial fluid present. 4. The left ventricular chamber size is normal with severe concentric hypertrophy and a normal ejection fraction with no resting wall motion abnormalities. Mild diastolic dysfunction is present. 5. Mild to moderate tricuspid insufficiency is present with mild pulmonic insufficiency and mild pulmonary hypertension with an estimated RV systolic pressure of 46 mmHg. 6. THere appearts to be a mobile echodensity present in the distal aspect of the transverse aortic arch. Further assessment is suggested if clinically indicated (chest CT, AARON, etc.). Exam & Diagnostic Data Vital Signs and I&O Vital Signs Date Time Temp Pulse Resp B/P Pulse O2 O2 Flow FiO2 Ox Delivery Rate 12/10 1519 106 260/130 12/10 1409 98.8 106 20 260/130 98 Room Air 12/10 1312 98 248/122 12/10 1242 104 300/150 12/10 1242 104 300/150 12/10 1242 300/150 12/10 1236 104 300/150 12/10 1130 Room Air 12/10 1110 300/150 12/10 1046 98.1 104 18 198/100 95 Room Air Intake & Output 12/10 1600 12/10 0800 12/10 0000 12/09 1600 12/09 0800 12/09 0000 Intake Total Output Total Balance Patient 160 lb Weight Labs/Ashwin Results: Laboratory Tests 12/10 1203 Chemistry Sodium (137 - 145 mmol/L) 138 Potassium (3.5 - 5.1 mmol/L) 5.0 Chloride (98 - 107 mmol/L) 96 L Carbon Dioxide (22 - 30 mmol/L) 27 Anion Gap (5 - 16) 15 BUN (7 - 17 mg/dL) 50 H Creatinine (0.5 - 1.0 mg/dL) 10.3 *H Estimated GFR (>60 ml/min) 4 L BUN/Creatinine Ratio (7 - 25 %) 4.9 L Glucose (65 - 99 mg/dL) 106 H Calcium (8.4 - 10.2 mg/dL) 9.6 Magnesium (1.6 - 2.3 mg/dL) 1.7 Total Bilirubin (0.2 - 1.3 mg/dL) 0.7 AST (14 - 36 U/L) 17 ALT (9 - 52 U/L) 29 Alkaline Phosphatase (<127 U/L) 116 Troponin I (< 0.11 ng/ml) Pending Total Protein (6.3 - 8.2 g/dL) 6.8 Albumin (3.5 - 5.0 g/dL) 3.7 Globulin (1.9 - 4.2 gm/dL) 3.1 Albumin/Globulin Ratio (1.1 - 2.2 %) 1.2 Hematology CBC w Diff NO MAN DIFF REQ WBC (4.8 - 10.8 /CUMM) 12.2 H RBC (4.20 - 5.40 /CUMM) 3.74 L Hgb (12.0 - 16.0 G/DL) 11.0 L Hct (37 - 47 %) 33.7 L MCV (81.0 - 99.0 FL) 90.0 MCH (27.0 - 31.0 PG) 29.5 RDW (11.5 - 14.5 %) 20.1 H Plt Count (130 - 400 /CUMM) 345 MPV (7.4 - 10.4 FL) 8.1 Gran % (42.2 - 75.2 %) 80.4 H Lymphocytes % (20.5 - 51.1 %) 9.0 L Monocytes % (1.7 - 9.3 %) 4.5 Eosinophils % (0 - 5 %) 5.8 H Basophils % (0.0 - 2.0 %) 0.3 Absolute Granulocytes (1.4 - 6.5 /CUMM) 9.8 H Absolute Lymphocytes (1.2 - 3.4 /CUMM) 1.1 L Absolute Monocytes (0.10 - 0.60 /CUMM) 0.6 Absolute Eosinophils (0.0 - 0.7 /CUMM) 0.7 Absolute Basophils (0.0 - 0.2 /CUMM) 0 PUBS MCHC (33.0 - 37.0 G/DL) 32.8 L Assessment/Plan Assessment/Plan Assessment: 1. Hypertensive Urgency 2. ESRD on PD 3. History of prior CVA 4. Diffuse atherosclerotic vascular disease. 5. Anemia 6. Atypical chest discomfort Recommendations: -BP medication regimen as discussed with the housestaff -Do not lower BP too quickly; note history of CVA -No need to repeat echo at the present time. -Further plans in 24 hours -Nephrology consult Consult Acknowledgment - Thank you for your consult request.
[2016-12-10] MEDS ORDERED: EPOGEN2000 UNIT/ SC (21:51)
[2016-12-11] VITALS: BP 190/90
[2016-12-11 05:05] LABS: ABSOLUTE BASOPHIL COUNT 0.1 /CUMM (0.0-0.2); ABSOLUTE EOSINOPHIL COUNT 0.5 /CUMM (0.0-0.7); ABSOLUTE GRANULOCYTE CT 4.5 /CUMM (1.4-6.5); ABSOLUTE LYMPH COUNT 1.4 /CUMM (1.2-3.4); ABSOLUTE MONOCYTE COUNT 0.6 /CUMM (0.10-0.60); BASOPHIL % 0.8 % (0.0-2.0); EOSINOPHIL % 7.3 % (0-5); GRANULOCYTE % 63.2 % (42.2-75.2); MEAN CORPUSCULAR HGB 29.6 PG (27.0-31.0); MEAN CORPUSCULAR HGB CONC 32.8 G/DL (33.0-37.0); MEAN CORPUSCULAR VOLUME 90.1 FL (81.0-99.0); PLATELET COUNT 240 /CUMM (130-400); RBC DISTRIBUTION WIDTH 20.4 % (11.5-14.5); WHITE BLOOD CELL COUNT 7.1 /CUMM (4.8-10.8)
[2016-12-11 05:10] LABS: HEMATOCRIT 24.5 % (37-47); RED BLOOD CELL CT 2.72 /CUMM (4.20-5.40)
[2016-12-11 08:00] VITALS: BP 220/110
--- NOTE | 2016-12-11 11:33 | PN- Nephrology ---
Assessment/Plan Assessment: 1. Accelerated hypertension. 2. Status post CVA. Her first CVA was a left basal ganglion lacunar infarct prior to her starting dialysis. Her second stroke was a right basal ganglia hemorrhagic CVA when she was hospitalized at [facility] in January 2013. She required mechanical ventilation at that time. This was in January 2013. She then went to [facility] for a time for rehabilitation after that hospital stay. Her next stroke was in April 2013 at [facility]. She then had another hemorrhagic event in September 2013. 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 3. Secondary hyperparathyroidism she is status post parathyroidectomy in September 2015. This was performed at [facility]. Unfortunately only 2 glands were found. 4. Remote history of sepsis due to MRSA 5. With regards to her umbilical hernia, I'm not certain that the repair of her occurred or if this is a recurrence. This had been planned for [facility] will investigate by going into [facility] and seeing if an operative report is available. 6. Anemia. Given her hypertension, her Epogen will be held for now. 7. History of pleural effusions. These were found not to be related to her CAPD, specifically, there is no evidence of PD fluid going into the pleural space meaning of course that there was no rent in the diaphragm. 8. ESRD due to hypertension. Apparently was a problem with her warmer last night and she refused her dialysis. Suggestion: 1. [place] the CAPD Subjective Subjective: Patient still with headache and neck pain. She did not allow her PD to be performed because of difficulties with the warmer. On that she has a point. Her first exchanges is dwelling today. Objective Vital Signs and I&Os Vital Signs Date Time Temp Pulse Resp B/P Pulse O2 O2 Flow FiO2 Ox Delivery Rate 12/11 1059 66 201/115 12/11 1053 64 201/115 12/11 0800 98.1 68 21 220/110 96 Room Air 12/11 0800 96 Room Air 12/11 0400 95 Room Air 12/11 0112 96 Room Air 12/11 0000 96 Room Air 12/11 0000 96.7 78 20 190/90 96 Room Air 12/10 2211 78 194/100 12/105 98.2 78 18 194/100 98 Room Air 12/11 2123 82 220/120 12/10 2104 83 208/100 03/16 2023 83 208/100 12/10 2009 82 210/120 12/10 2004 82 210/120 12/10 1955 82 218/120 12/10 1831 98.0 82 16 218/120 98 Room Air 12/10 1809 85 235/130 12/10 1744 85 240/120 12/10 1727 109 240/150 12/10 1709 98.0 105 18 280/158 97 Room Air 12/10 1519 106 260/130 12/10 1409 98.8 106 20 260/130 98 Room Air 12/10 1312 98 248/122 12/10 1242 104 300/150 12/10 1242 104 300/150 12/10 1242 300/150 12/10 1236 104 300/150 Intake & Output 12/11 1600 12/11 0400 12/10 1600 12/10 0400 12/09 1600 12/09 0400 Intake Total 120 Output Total Balance 120 Intake, Oral 120 Patient 160 lb 160 lb Weight Physical Exam: General Appearance: well developed/nourished, no apparent distress, alert, mild distress, obese Head: atraumatic, normal appearance Eyes: Bilateral: PERRL, EOMI. Neck: normal inspection, supple, full range of motion, no midline tenderness Respiratory: chest non-tender, no respiratory distress, decreased breath sounds Cardiovascular: regular rate/rhythm, edema, norml femoral pulses equa Gastrointestinal: normal bowel sounds, soft, non-tender, no organomegaly Extremities: normal inspection, normal capillary refill, She has edema Cranial Nerves: normal hearing, normal speech, PERRL Skin: rash Current Medications: Current Medications Sig/Bryan Start time Last Medication Dose Route Stop Time Status Admin Acetaminophen 650 MG Q4P PRN 12/10 1929 AC PO Alprazolam 0.5 MG ONE TIME PRN 12/100 AC 12/11 PO 12/17 2159 0028 Aspirin 81 MG DAILY 12/10 2148 AC 12/11 PO 0847 Clonidine 0 .STK-MED ONE 12/10 2106 DC PO Clonidine 0.1 MG Q1H 12/10 2100 DC 12/10 PO 2105 Clonidine 0 .STK-MED ONE 12/10 1948 DC PO Clonidine 0.2 MG ONE ONE 12/10 1930 DC 12/10 PO 12/10 193 1955 Clonidine 1 PAT ONCE ONE 12/10 1145 DC 12/10 TOP 12/10 1146 1242 Esmolol HCl 2,500 MG Q24H 12/10 1900 AC 12/10 Sodium Chloride 250 ML IV 2010 Esmolol HCl 100 MG CONTINOUS INFUSION 12/10 1845 CAN IV Gentamicin Sulfate 1 UDAY DAILY PRN 12/10 2300 AC 12/11 TOP 0925 Hydralazine HCl 10 MG ONCE ONE 12/10 1515 DC 12/10 IV 12/10 1516 1519 Hydralazine HCl 0 .STK-MED ONE 12/10 1514 DC .ROUTE Hydralazine HCl 0 .STK-MED ONE 12/10 1229 DC .ROUTE Hydralazine HCl 20 MG ONCE ONE 12/10 1145 DC 12/10 IV 12/10 1146 1242 Hydromorphone HCl 0.5 MG ONCE ONE 12/11 1045 DC 12/11 IV 12/11 1046 1059 Hydromorphone HCl 0 .STK-MED ONE 12/10 1659 DC .ROUTE Hydromorphone HCl 0.4 MG Q6-PRN PRN 12/10 1615 AC 12/11 IV 0800 Hydromorphone HCl 0 .STK-MED ONE 12/10 1350 DC .ROUTE Hydromorphone HCl 0.5 MG ONCE ONE 12/10 1345 DC 12/10 IV 12/10 1346 1351 Labetalol HCl 200 MG TID 12/11 1032 AC 12/11 PO 1059 Labetalol HCl 20 MG ONCE ONE 12/11 0915 DC 12/11 IV 12/11 0916 1053 Labetalol HCl 200 MG ONCE ONE 12/10 1600 DC 12/10 Sodium Chloride 200 ML IV 12/10 1739 1710 Labetalol HCl 0 .STK-MED ONE 12/10 1229 DC IV Labetalol HCl 20 MG ONCE ONE 12/10 1145 DC 12/10 IV 12/10 1146 1236 Nitroglycerin 0 .STK-MED ONE 12/10 1302 DC TOP Nitroglycerin 0 .STK-MED ONE 12/10 1301 DC TOP Nitroglycerin 1 GM ONCE ONE 12/10 1245 DC 12/10 TOP 12/10 1246 1300 Ondansetron HCl 4 MG Q6PRN PRN 12/10 1730 AC 12/11 IV 0925 Ondansetron HCl 0 .STK-MED ONE 12/10 1404 DC .ROUTE Ondansetron HCl 4 MG ONCE ONE 12/10 1400 DC 12/10 IV 12/10 1401 1409 Promethazine HCl 0 .STK-MED ONE 12/10 1229 DC .ROUTE Promethazine HCl 25 MG ONCE ONE 12/10 1145 DC 12/10 IV 12/10 1146 1236 Results Pertinent Lab Results: Laboratory Tests 12/11 12/10 0400 1203 Chemistry Sodium (137 - 145 mmol/L) 135 L 138 Potassium (3.5 - 5.1 mmol/L) 5.2 H 5.0 Chloride (98 - 107 mmol/L) 97 L 96 L Carbon Dioxide (22 - 30 mmol/L) 27 27 Anion Gap (5 - 16) 11 15 BUN (7 - 17 mg/dL) 57 H 50 H Creatinine (0.5 - 1.0 mg/dL) 11.1 *H 10.3 *H Estimated GFR (>60 ml/min) 4 L 4 L BUN/Creatinine Ratio (7 - 25 %) 4.9 L Glucose (65 - 99 mg/dL) 93 106 H Calcium (8.4 - 10.2 mg/dL) 8.2 L 9.6 Phosphorus (2.5 - 4.5 mg/dL) 4.4 Magnesium (1.6 - 2.3 mg/dL) 1.7 1.7 Total Bilirubin (0.2 - 1.3 mg/dL) 0.6 0.7 AST (14 - 36 U/L) 10 L 17 ALT (9 - 52 U/L) 33 29 Alkaline Phosphatase (<127 U/L) 116 Troponin I (< 0.11 ng/ml) 0.02 Total Protein (6.3 - 8.2 g/dL) 6.8 Albumin (3.5 - 5.0 g/dL) 2.6 L 3.7 Globulin (1.9 - 4.2 gm/dL) 3.1 Albumin/Globulin Ratio (1.1 - 2.2 %) 1.2 Hematology CBC w Diff NO MAN DIFF REQ NO MAN DIFF REQ WBC (4.8 - 10.8 /CUMM) 7.1 12.2 H RBC (4.20 - 5.40 /CUMM) 2.72 L 3.74 L Hgb (12.0 - 16.0 G/DL) 8.1 L 11.0 L Hct (37 - 47 %) 24.5 L 33.7 L MCV (81.0 - 99.0 FL) 90.1 90.0 MCH (27.0 - 31.0 PG) 29.6 29.5 RDW (11.5 - 14.5 %) 20.4 H 20.1 H Plt Count (130 - 400 /CUMM) 240 345 MPV (7.4 - 10.4 FL) 9.0 8.1 Gran % (42.2 - 75.2 %) 63.2 80.4 H Lymphocytes % (20.5 - 51.1 %) 20.4 L 9.0 L Monocytes % (1.7 - 9.3 %) 8.3 4.5 Eosinophils % (0 - 5 %) 7.3 H 5.8 H Basophils % (0.0 - 2.0 %) 0.8 0.3 Absolute Granulocytes (1.4 - 6.5 /CUMM) 4.5 9.8 H Absolute Lymphocytes (1.2 - 3.4 /CUMM) 1.4 1.1 L Absolute Monocytes (0.10 - 0.60 /CUMM) 0.6 0.6 Absolute Eosinophils (0.0 - 0.7 /CUMM) 0.5 0.7 Absolute Basophils (0.0 - 0.2 /CUMM) 0.1 0 PUBS MCHC (33.0 - 37.0 G/DL) 32.8 L 32.8 L
[2016-12-11 16:00] VITALS: BP 160/88
--- NOTE | 2016-12-11 17:09 | PN- Cardiology ---
Subjective Subjective: Stable with persistent nausea. BP remains elevated. Objective Vital Signs and I&Os Vital Signs Date Time Temp Pulse Resp B/P Pulse O2 O2 Flow FiO2 Ox Delivery Rate 12/11 1307 70 192/100 12/11 1201 66 230/120 12/11 1200 96 Room Air 12/11 1059 66 201/115 12/11 1053 64 201/115 12/11 0800 98.1 68 21 220/110 96 Room Air 12/11 0800 96 Room Air 12/11 0400 95 Room Air 12/11 0112 96 Room Air 12/11 0000 96 Room Air 12/11 0000 96.7 78 20 190/90 96 Room Air 12/10 2211 78 194/100 12/10 2205 98.2 78 18 194/100 98 Room Air 12/10 2124 82 220/120 12/10 2105 83 208/100 12/10 2023 83 208/100 12/10 2009 82 210/120 12/10 2004 82 210/120 12/10 1955 82 218/120 12/10 1831 98.0 82 16 218/120 98 Room Air 12/10 1809 85 235/130 12/10 1744 85 240/120 12/10 1727 109 240/150 Intake & Output 12/11 1600 12/11 0800 12/11 0000 12/10 1600 12/10 0800 12/10 0000 Intake Total 120 Output Total Balance 120 Intake, Oral 120 Patient 160 lb 160 lb Weight Physical Exam: General Appearance Alert, Oriented X3, Mild Distress Cardiovascular Regular Rate, Normal S1, Normal S2, S4, 1-2/6 systolic murmur Lungs Clear to Auscultation bilaterally Abdomen Normal Bowel Sounds, Soft, No Tenderness Extremities No Clubbing, No Cyanosis, edema 2+ b/l, psoriatic lesion on her left foot. Current Medications: Current Medications Sig/Bryan Start time Last Medication Dose Route Stop Time Status Admin Acetaminophen 650 MG Q4P PRN 12/10 193 AC PO Alprazolam 0.5 MG ONCE ONE 12/11 1415 DC 12/11 PO 12/11 1416 1415 Alprazolam 0.5 MG ONE TIME PRN 12/100 AC 12/11 PO 12/179 0028 Aspirin 81 MG DAILY 12/11 2147 AC 12/11 PO 0847 Clonidine 0 .STK-MED ONE 12/10 2106 DC PO Clonidine 0.1 MG Q1H 12/10 2100 DC 12/10 PO 210 Clonidine 0 .STK-MED ONE 12/11 1947 DC PO Clonidine 0.2 MG ONE ONE 12/10 193 DC 12/10 PO 12/10 Esmolol HCl 2,500 MG Q24H 12/10 1899 DC 12/10 Sodium Chloride 250 ML IV 2009 Esmolol HCl 100 MG CONTINOUS INFUSION 12/10 1845 CAN IV Gentamicin Sulfate 1 UDAY DAILY PRN 12/10 2300 AC 12/11 TOP 0925 Hydralazine HCl 100 MG TID 12/11 1200 AC 12/11 PO 1307 Hydromorphone HCl 0.4 MG Q4-6 PRN PRN 12/11 1515 AC IV Hydromorphone HCl 0.5 MG ONCE ONE 12/11 1045 DC 12/11 IV 12/11 1046 1059 Hydromorphone HCl 0.4 MG Q6-PRN PRN 12/10 1615 DC 12/11 IV 1400 Labetalol HCl 20 MG ONCE ONE 12/11 1200 DC 12/11 IV 12/11 1201 1201 Labetalol HCl 200 MG TID 12/11 1032 AC 12/11 PO 1059 Labetalol HCl 20 MG ONCE ONE 12/11 0915 DC 12/11 IV 12/11 0916 1053 Labetalol HCl 200 MG ONCE ONE 12/10 1600 DC 12/10 Sodium Chloride 200 ML IV 12/10 1739 1710 Ondansetron HCl 4 MG Q6PRN PRN 12/10 1730 AC 12/11 IV 1706 Results Last 48 Hrs of Labs/Mics: Laboratory Tests 12/11/16 0400: Anion Gap 11, Estimated GFR 4 L, Glucose 93, Calcium 8.2 L, Phosphorus 4.4, Magnesium 1.7, Total Bilirubin 0.6, AST 10 L, ALT 33, Albumin 2.6 L, CBC w Diff NO MAN DIFF REQ, RBC 2.72 L, MCV 90.1, MCH 29.6, RDW 20.4 H, MPV 9.0, Gran % 63.2, Lymphocytes % 20.4 L, Monocytes % 8.3, Eosinophils % 7.3 H, Basophils % 0.8, Absolute Granulocytes 4.5, Absolute Lymphocytes 1.4, Absolute Monocytes 0.6, Absolute Eosinophils 0.5, Absolute Basophils 0.1, PUBS MCHC 32.8 L 12/10/16 1203: Anion Gap 15, Estimated GFR 4 L, BUN/Creatinine Ratio 4.9 L, Glucose 106 H, Calcium 9.6, Magnesium 1.7, Total Bilirubin 0.7, AST 17, ALT 29, Alkaline Phosphatase 116, Troponin I 0.02, Total Protein 6.8, Albumin 3.7, Globulin 3.1, Albumin/Globulin Ratio 1.2, CBC w Diff NO MAN DIFF REQ, RBC 3.74 L, MCV 90.0, MCH 29.5, RDW 20.1 H, MPV 8.1, Gran % 80.4 H, Lymphocytes % 9.0 L, Monocytes % 4.5, Eosinophils % 5.8 H, Basophils % 0.3, Absolute Granulocytes 9.8 H, Absolute Lymphocytes 1.1 L, Absolute Monocytes 0.6, Absolute Eosinophils 0.7, Absolute Basophils 0, PUBS MCHC 32.8 L Assessment/Plan Assessment/Plan Assessment: 1. Hypertensive Urgency 2. ESRD on PD 3. History of prior CVA 4. Diffuse atherosclerotic vascular disease. 5. Anemia 6. Atypical chest discomfort Recommendations: - Discussed in detail with the housestaff. - Restart po amlodipine and labetalol today and continue close monitoring of BP. - Goal initially of 180 systolic. - Plan to reinstitute other po meds in a stepwise fashion beginning tomorrow with close attention to avoiding rapid drops in systolic BP in view of the patient's prior neurologic history. - OOB as tolerated. - As per Nephrology. Continue telemetry? Yes
[2016-12-12] VITALS: BP 138/80
[2016-12-12 05:01] LABS: ABSOLUTE BASOPHIL COUNT 0.1 /CUMM (0.0-0.2); ABSOLUTE EOSINOPHIL COUNT 1.2 /CUMM (0.0-0.7); ABSOLUTE GRANULOCYTE CT 4.3 /CUMM (1.4-6.5); ABSOLUTE LYMPH COUNT 2.3 /CUMM (1.2-3.4); ABSOLUTE MONOCYTE COUNT 0.7 /CUMM (0.10-0.60); BASOPHIL % 0.8 % (0.0-2.0); GRANULOCYTE % 50.2 % (42.2-75.2); MEAN CORPUSCULAR HGB 29.7 PG (27.0-31.0); MEAN CORPUSCULAR HGB CONC 32.3 G/DL (33.0-37.0); MEAN CORPUSCULAR VOLUME 91.9 FL (81.0-99.0); MEAN PLATELET VOLUME 8.5 FL (7.4-10.4); PLATELET COUNT 235 /CUMM (130-400); RBC DISTRIBUTION WIDTH 20.6 % (11.5-14.5); RED BLOOD CELL CT 3.25 /CUMM (4.20-5.40); WHITE BLOOD CELL COUNT 8.6 /CUMM (4.8-10.8)
[2016-12-12 05:21] LABS: HEMATOCRIT 29.9 % (37-47)
[2016-12-12 08:00] VITALS: BP 160/90
--- NOTE | 2016-12-12 08:45 | PN- Housestaff ---
Subjective Follow-up For: Hypertensive Urgency ESRD on PD History of CVA Anemia Tele-Events Since Last Visit: No acute overnight events Subjective: Patient seen and examined this morning. She was sitting comfortably in bed in no acute distress, did complain of jaw pain which is better than when it started last night. Her blood pressure has been ranging between 130 to 140 systolic, her blood pressure meds including amlodipine and labetalol and hydralazine restarted cautiously. We'll continue to monitor blood pressure, closely as patient has history of ischemic CVA. Otherwise patient has no other complaints, remains afebrile, the right is within normal limits. Review of Systems Constitutional: Denies: chills, fever. Cardiovascular: Denies: chest pain, palpitations. Respiratory: Denies: cough, short of breath, sputum production. Gastrointestinal: Denies: abdominal pain, constipation, diarrhea, nausea, vomiting. Genitourinary: Denies: dysuria, frequency. Objective Last 24 Hrs of Vital Signs/I&O Vital Signs Date Time Temp Pulse Resp B/P Pulse O2 O2 Flow FiO2 Ox Delivery Rate 12/12 0800 98.8 66 20 160/90 96 Room Air 12/12 0000 98.4 78 28 138/80 98 Room Air 12/11 2200 138/92 12/11 2200 138/92 12/11 1810 70 190/100 12/11 1710 76 147/83 12/11 1710 73 147/83 12/11 1600 97 Room Air 12/11 1600 98.0 66 26 160/88 97 Room Air Intake & Output 12/12 1600 12/12 0800 12/12 0000 Intake Total 250 380 Output Total 500 500 Balance -250 -120 Intake, IV 10 20 Intake, Oral 240 360 Output, 500 500 Dialysate Physical Exam General Appearance: Alert, Oriented X3, Cooperative, No Acute Distress Cardiovascular: Regular Rate, Normal S1, Normal S2 Lungs: Clear to Auscultation Abdomen: Normal Bowel Sounds, Soft, No Tenderness Extremities: EDEMA B/L 1+, , PSORIATIC LESION ON LEFT FOOT Current Medications: Current Medications Sig/Bryan Start time Last Medication Dose Route Stop Time Status Admin Acetaminophen 650 MG Q4P PRN 12/10 1929 AC PO Alprazolam 0.5 MG TID PRN 12/11 2044 AC 12/11 PO 12/18 Alprazolam 0.5 MG ONCE ONE 12/11 1415 DC 12/11 PO 12/11 1416 1415 Alprazolam 0.5 MG ONE TIME PRN 12/10 2200 DC 12/11 PO 12/17 2159 0028 Amlodipine Besylate 10 MG .STK-MED ONE 12/11 1803 DC PO 12/11 1804 Amlodipine Besylate 10 MG DAILY 12/11 1728 AC 12/12 PO 1018 Aspirin 81 MG DAILY 12/10 2148 AC 12/12 PO 1018 Esmolol HCl 2,500 MG Q24H 12/10 1900 DC 12/10 Sodium Chloride 250 ML IV 2010 Gentamicin Sulfate 1 UDAY DAILY PRN 12/10 2300 AC 12/11 TOP 0925 Hydralazine HCl 100 MG BID 12/12 1303 AC PO Hydralazine HCl 100 MG TID 12/11 1200 DC 12/12 PO 1233 Hydromorphone HCl 0.4 MG Q4-6 PRN PRN 12/11 1515 AC 12/12 IV 0800 Hydromorphone HCl 0.4 MG Q6-PRN PRN 12/10 1615 DC 12/11 IV 1400 Labetalol HCl 200 MG TID 12/11 1032 AC 12/12 PO 1018 Ondansetron HCl 4 MG Q6PRN PRN 12/10 1730 AC 12/12 IV 1000 Last 24 Hrs of Lab/Ashwin Results Last 24 Hrs of Labs/Mics: Laboratory Tests 12/12/16 0415: Anion Gap 15, Estimated GFR 4 L, Glucose 77, Calcium 8.4, Phosphorus 4.8 H, Magnesium 1.7, Total Bilirubin 0.5, AST 17, ALT 29, Albumin 3.0 L, CBC w Diff NO MAN DIFF REQ, RBC 3.25 L, MCV 91.9, MCH 29.7, RDW 20.6 H, MPV 8.5, Gran % 50.2, Lymphocytes % 26.5, Monocytes % 8.5, Eosinophils % 14.0 H, Basophils % 0.8, Absolute Granulocytes 4.3, Absolute Lymphocytes 2.3, Absolute Monocytes 0.7 H, Absolute Eosinophils 1.2, Absolute Basophils 0.1, PUBS MCHC 32.3 L Assessment/Plan Assessment: This is a 31-year-old female with past medical history of ESRD on peritoneal dialysis, uncontrolled hypertension with multiple admissions for hypertensive urgency and CVA, basal ganglia hemorrhage, recently admitted to [facility] for hypertensive urgency in September 2016, presents with severe headache associated with nausea and vomiting. Vitals upon presentation temperature 98.1, pulse 104, respiratory rate 18, blood pressure 198/100, 94, satting in mid 90s on room air. Pertinent labs WBC 12.2, H&H 11 and 33.4, platelets 345, creatinine 10.3, BUN 50 , Chest x-ray showed:, IMPRESSION: Interval resolution of the left-sided pleural effusion. Small right-sided pleural effusion is now visualized with some mild platelike right mid to lower lobe opacities suggesting atelectasis. Mild central pulmonary vascular prominence without overt edema. Mild cardiomegaly. ED course: Patient received IV hydralazine 20 mg and IV Lipitor 20 mg Nitropaste ,, the pressure further creeped up to 300/150. A decision was made to admit her to ICU for close monitoring of hypertensive emergency. We are currently managing the patient for chronic conditions: Hypertensive Urgency: Patient presented with blood pressure systolic ranging between 250 and 300MMHG. Keeping in mind patient has history of multiple ischemic strokes, we have been cautiously managing her blood pressure to prevent any further episodes of ischemic strokes . We have restarted amlodipine 10 mg daily, hydralazine 100MG twice a day, clonidine patch 0.2 mg, labetalol 200 mg 2 times a day with close blood pressure monitoring Blood pressure goal 160-180 systolic. Headache: Resolved, Likely secondary to dangerously elevated blood pressure, management as per pain pathway. End-stage renal disease on peritoneal dialysis: Nephrology on board, patient getting peritoneal dialysis regularly. We'll continue calcium carbonate 1250 mg twice a day Anemia : Likely secondary to end-stage renal disease, H&H 11.0(around baseline) and 33.7, holding off of Epogen for now. History of anxiety: We'll continue home dose of Xanax 0.5 mg daily. Diet: Renal dialysis DVT prophylaxis : Subcutaneous heparin Patient is full code Problem List: 1. HYPERTENSIVE URGENCY 2. Headache 3. DVT prophylaxis 4. ESRD (end stage renal disease) on dialysis Pain Ratin Pain Location: Headache Pain Goal: Remain pain free Pain Plan: Hydromorphone Tomorrow's Labs & Rationales: icu bundle BEP Consulting Request: Consulting Specialty: Nephrology Consulting Physician: Reason for Consult: Peritoneal Dialysis
--- NOTE | 2016-12-12 11:40 | PN- Nephrology ---
Assessment/Plan Assessment: Does not appear volume oveloaded at this time. Uses 2.5 and 4.25 dextrose solutions at home because of relatively poor UF, high fluid intake. Suggestion: Will change to 4.25 alternating with 2.5% dextrose. Would place her back on her usual outpatient medications and observe results. Subjective Subjective: Patient awake, eating. Still complains of some jaw pain, no headache. BP better but still elevated. Objective Vital Signs and I&Os Vital Signs Date Time Temp Pulse Resp B/P Pulse O2 O2 Flow FiO2 Ox Delivery Rate 12/12 0800 98.8 66 20 160/90 96 Room Air 12/12 0000 98.4 78 28 138/80 98 Room Air 12/11 2200 138/92 12/11 2200 138/92 12/11 1810 70 190/100 12/11 1710 76 147/83 12/11 1710 73 147/83 12/11 1600 97 Room Air 12/11 1600 98.0 66 26 160/88 97 Room Air 12/11 1307 70 192/100 12/11 1201 66 230/120 12/11 1200 96 Room Air Intake & Output 12/12 1600 12/12 0400 12/11 1600 12/11 0400 12/10 1600 12/10 0400 Intake Total 250 380 422 Output Total 500 500 0 Balance -250 -120 422 Intake, IV 10 20 62 Intake, Oral 240 360 360 Number 0 Bowel Movements Output, 500 500 Dialysate Output, Urine 0 Patient 160 lb 160 lb Weight Physical Exam: NAD VS as above Lungs: clear CV: no rub Abd: nontender Exts: no edema Neuro : A&O Current Medications: Current Medications Sig/Bryan Start time Last Medication Dose Route Stop Time Status Admin Acetaminophen 650 MG Q4P PRN 12/10 1930 AC PO Alprazolam 0.5 MG TID PRN 12/11 2045 AC 12/11 PO 12/18 204 2159 Alprazolam 0.5 MG ONCE ONE 12/11 1415 DC 12/11 PO 12/11 1416 1415 Alprazolam 0.5 MG ONE TIME PRN 12/10 2200 DC 12/11 PO 12/17 2159 0028 Amlodipine Besylate 10 MG .STK-MED ONE 12/11 1803 DC PO 12/11 1804 Amlodipine Besylate 10 MG DAILY 12/11 1728 AC 12/12 PO 1018 Aspirin 81 MG DAILY 12/10 2148 12/12 PO 1018 Esmolol HCl 2,500 MG Q24H 12/10 1900 DC 12/10 Sodium Chloride 250 ML IV 2010 Gentamicin Sulfate 1 UDAY DAILY PRN 12/10 2300 12/11 TOP 0925 Hydralazine HCl 25 MG .STK-MED ONE 12/11 1205 DC PO 12/11 1206 Hydralazine HCl 100 MG TID 12/11 1200 DC 12/11 PO 1710 Hydralazine HCl 75 MG .STK-MED ONE 12/11 1154 DC PO 12/11 1155 Hydromorphone HCl 0.4 MG Q4-6 PRN PRN 12/11 1515 AC 12/12 IV 0800 Hydromorphone HCl 0.4 MG Q6-PRN PRN 12/10 1615 DC 12/11 IV 1400 Labetalol HCl 20 MG ONCE ONE 12/11 1200 DC 12/11 IV 12/11 1201 1201 Labetalol HCl 300 MG .STK-MED ONE 12/11 1153 DC PO 12/11 1154 Labetalol HCl 200 MG TID 12/11 1032 12/12 PO 1018 Ondansetron HCl 4 MG Q6PRN PRN 12/10 1730 12/12 IV 1000 Results Pertinent Lab Results: Laboratory Tests 12/12 12/11 0415 0400 Chemistry Sodium (137 - 145 mmol/L) 136 L 135 L Potassium (3.5 - 5.1 mmol/L) 5.3 H 5.2 H Chloride (98 - 107 mmol/L) 98 97 L Carbon Dioxide (22 - 30 mmol/L) 24 27 Anion Gap (5 - 16) 15 11 BUN (7 - 17 mg/dL) 62 H 57 H Creatinine (0.5 - 1.0 mg/dL) 11.2 *H 11.1 *H Estimated GFR (>60 ml/min) 4 L 4 L Glucose (65 - 99 mg/dL) 77 93 Calcium (8.4 - 10.2 mg/dL) 8.4 8.2 L Phosphorus (2.5 - 4.5 mg/dL) 4.8 H 4.4 Magnesium (1.6 - 2.3 mg/dL) 1.7 1.7 Total Bilirubin (0.2 - 1.3 mg/dL) 0.5 0.6 AST (14 - 36 U/L) 17 10 L ALT (9 - 52 U/L) 29 33 Albumin (3.5 - 5.0 g/dL) 3.0 L 2.6 L Hematology CBC w Diff NO MAN DIFF REQ NO MAN DIFF REQ WBC (4.8 - 10.8 /CUMM) 8.6 7.1 RBC (4.20 - 5.40 /CUMM) 3.25 L 2.72 L Hgb (12.0 - 16.0 G/DL) 9.6 L 8.1 L Hct (37 - 47 %) 29.9 L 24.5 L MCV (81.0 - 99.0 FL) 91.9 90.1 MCH (27.0 - 31.0 PG) 29.7 29.6 RDW (11.5 - 14.5 %) 20.6 H 20.4 H Plt Count (130 - 400 /CUMM) 235 240 MPV (7.4 - 10.4 FL) 8.5 9.0 Gran % (42.2 - 75.2 %) 50.2 63.2 Lymphocytes % (20.5 - 51.1 %) 26.5 20.4 L Monocytes % (1.7 - 9.3 %) 8.5 8.3 Eosinophils % (0 - 5 %) 14.0 H 7.3 H Basophils % (0.0 - 2.0 %) 0.8 0.8 Absolute Granulocytes (1.4 - 6.5 /CUMM) 4.3 4.5 Absolute Lymphocytes (1.2 - 3.4 /CUMM) 2.3 1.4 Absolute Monocytes (0.10 - 0.60 /CUMM) 0.7 H 0.6 Absolute Eosinophils (0.0 - 0.7 /CUMM) 1.2 0.5 Absolute Basophils (0.0 - 0.2 /CUMM) 0.1 0.1 PUBS MCHC (33.0 - 37.0 G/DL) 32.3 L 32.8 L /16 1203 Chemistry Sodium (137 - 145 mmol/L) 138 Potassium (3.5 - 5.1 mmol/L) 5.0 Chloride (98 - 107 mmol/L) 96 L Carbon Dioxide (22 - 30 mmol/L) 27 Anion Gap (5 - 16) 15 BUN (7 - 17 mg/dL) 50 H Creatinine (0.5 - 1.0 mg/dL) 10.3 *H Estimated GFR (>60 ml/min) 4 L BUN/Creatinine Ratio (7 - 25 %) 4.9 L Glucose (65 - 99 mg/dL) 106 H Calcium (8.4 - 10.2 mg/dL) 9.6 Magnesium (1.6 - 2.3 mg/dL) 1.7 Total Bilirubin (0.2 - 1.3 mg/dL) 0.7 AST (14 - 36 U/L) 17 ALT (9 - 52 U/L) 29 Alkaline Phosphatase (<127 U/L) 116 Troponin I (< 0.11 ng/ml) 0.02 Total Protein (6.3 - 8.2 g/dL) 6.8 Albumin (3.5 - 5.0 g/dL) 3.7 Globulin (1.9 - 4.2 gm/dL) 3.1 Albumin/Globulin Ratio (1.1 - 2.2 %) 1.2 Hematology CBC w Diff NO MAN DIFF REQ WBC (4.8 - 10.8 /CUMM) 12.2 H RBC (4.20 - 5.40 /CUMM) 3.74 L Hgb (12.0 - 16.0 G/DL) 11.0 L Hct (37 - 47 %) 33.7 L MCV (81.0 - 99.0 FL) 90.0 MCH (27.0 - 31.0 PG) 29.5 RDW (11.5 - 14.5 %) 20.1 H Plt Count (130 - 400 /CUMM) 345 MPV (7.4 - 10.4 FL) 8.1 Gran % (42.2 - 75.2 %) 80.4 H Lymphocytes % (20.5 - 51.1 %) 9.0 L Monocytes % (1.7 - 9.3 %) 4.5 Eosinophils % (0 - 5 %) 5.8 H Basophils % (0.0 - 2.0 %) 0.3 Absolute Granulocytes (1.4 - 6.5 /CUMM) 9.8 H Absolute Lymphocytes (1.2 - 3.4 /CUMM) 1.1 L Absolute Monocytes (0.10 - 0.60 /CUMM) 0.6 Absolute Eosinophils (0.0 - 0.7 /CUMM) 0.7 Absolute Basophils (0.0 - 0.2 /CUMM) 0 PUBS MCHC (33.0 - 37.0 G/DL) 32.8 L
--- NOTE | 2016-12-12 12:13 | PN- Cardiology ---
Subjective Subjective: * Patient complains of a neck and jaw discomfort bilaterally. The neck discomfort tends to be a recurrent phenomenon when admitted for BP control. * Patient remains hypertensive in sinus rhythm. * creatinine 11.2 with potassium 5.3 Objective Vital Signs and I&Os Vital Signs Date Time Temp Pulse Resp B/P Pulse O2 O2 Flow FiO2 Ox Delivery Rate 12/12 0800 98.8 66 20 160/90 96 Room Air 12/12 0000 98.4 78 28 138/80 98 Room Air 12/11 2200 138/92 12/11 2200 138/92 12/11 1810 70 190/100 12/11 1710 76 147/83 12/11 1710 73 147/83 12/11 1600 97 Room Air 12/11 1600 98.0 66 26 160/88 97 Room Air 12/11 1307 70 192/100 12/11 1201 66 230/120 12/11 1200 96 Room Air Intake & Output 12/12 1600 12/12 0800 03/ 0000 12/11 1600 12/11 0800 12/11 0000 Intake Total 250 380 302 120 Output Total 500 500 0 Balance -250 -120 302 120 Intake, IV 10 20 62 Intake, Oral 240 360 240 120 Number 0 Bowel Movements Output, 500 500 Dialysate Output, Urine 0 Patient 160 lb Weight Physical Exam: General: WD/ obese female in NAD; alert and oriented x 3 HEENT: NC/AT, PERRL, EOMI, clear oropharynx neck: no JVD, no carotid bruit Heart: RRR w/o mumur Lungs: clear bilaterally Abdomen: soft, obese, NT, unbilical hernia Extremities: no edema Assessment/Plan Assessment/Plan * This patient has repeated bouts of severe hypertension. It is not clear if this patient ever had an adequate workup for renal artery stenosis. Would check a serum renin level and consider a renal angiogram after premedication for a contrast allergy. This will assess for a partially functioning kidney that is secreting too much renin. * Continue labetolol 200mg PO BID, Amlodipine 10mg daily and hydralazine 100mg BID. Continue telemetry? Yes
--- NOTE | 2016-12-12 13:18 | PN- Housestaff ---
Subjective Follow-up For: Hypertensive Urgency ESRD on PD History of CVA Anemia Tele-Events Since Last Visit: No acute overnight events Subjective: Patient seen and examined this morning. She was sitting comfortably in bed in no acute distress, headache has improved tremendously, blood pressure has been ranging between 190-200 limit of mercury, for the next 24 hours with being systolic blood pressure 160-180. We'll continue to monitor blood pressure, closely as patient has history of ischemic CVA. Otherwise patient has no other complaints, remains afebrile, the right is within normal limits. Review of Systems Constitutional: Reports: see HPI. Objective Last 24 Hrs of Vital Signs/I&O Vital Signs Date Time Temp Pulse Resp B/P Pulse O2 O2 Flow FiO2 Ox Delivery Rate 12/12 0800 98.8 66 20 160/90 96 Room Air 12/12 0000 98.4 78 28 138/80 98 Room Air 12/11 2200 138/92 12/11 2200 138/92 12/11 1810 70 190/100 12/11 1710 76 147/83 12/11 1710 73 147/83 12/11 1600 97 Room Air 12/11 1600 98.0 66 26 160/88 97 Room Air Intake & Output 12/12 1600 12/12 0800 12/12 0000 Intake Total 250 380 Output Total 500 500 Balance -250 -120 Intake, IV 10 20 Intake, Oral 240 360 Output, 500 500 Dialysate Physical Exam General Appearance: Alert, Oriented X3, Cooperative, No Acute Distress Cardiovascular: Regular Rate, Normal S1, Normal S2, No Murmurs Lungs: Clear to Auscultation, Normal Air Movement Abdomen: Normal Bowel Sounds, Soft, No Tenderness Extremities: No Clubbing, No Cyanosis, EDEMA B/L 1+, PSORIATIC LESION ON LEFT FOOT Current Medications: Current Medications Sig/Bryan Start time Last Medication Dose Route Stop Time Status Admin Acetaminophen 650 MG Q4P PRN 12/10 1930 AC PO Alprazolam 0.5 MG TID PRN 12/11 2044 AC 12/11 PO 12/18 Alprazolam 0.5 MG ONCE ONE 12/11 141 DC 12/11 PO 12/11 141 1415 Alprazolam 0.5 MG ONE TIME PRN 12/10 2199 DC 12/11 PO 12/17 2158 0028 Amlodipine Besylate 10 MG .STK-MED ONE 12/11 1803 DC PO 12/11 1804 Amlodipine Besylate 10 MG DAILY 12/11 1728 AC 12/12 PO 1018 Aspirin 81 MG DAILY 12/10 2148 AC 12/12 PO 1018 Esmolol HCl 2,500 MG Q24H 12/10 1900 DC 12/10 Sodium Chloride 250 ML IV 2009 Gentamicin Sulfate 1 UDAY DAILY PRN 12/10 2300 12/11 TOP 0925 Hydralazine HCl 100 MG BID 12/12 1303 AC PO Hydralazine HCl 100 MG TID 12/11 1200 DC 12/12 PO 1233 Hydromorphone HCl 0.4 MG Q4-6 PRN PRN 12/11 1515 AC 12/12 IV 0800 Hydromorphone HCl 0.4 MG Q6-PRN PRN 12/10 1615 DC 12/11 IV 1400 Labetalol HCl 200 MG TID 12/11 1032 AC 12/12 PO 1018 Ondansetron HCl 4 MG Q6PRN PRN 12/10 1730 AC 12/12 IV 1000 Last 24 Hrs of Lab/Ashwin Results Last 24 Hrs of Labs/Mics: Laboratory Tests 12/12/16 0415: Anion Gap 15, Estimated GFR 4 L, Glucose 77, Calcium 8.4, Phosphorus 4.8 H, Magnesium 1.7, Total Bilirubin 0.5, AST 17, ALT 29, Albumin 3.0 L, CBC w Diff NO MAN DIFF REQ, RBC 3.25 L, MCV 91.9, MCH 29.7, RDW 20.6 H, MPV 8.5, Gran % 50.2, Lymphocytes % 26.5, Monocytes % 8.5, Eosinophils % 14.0 H, Basophils % 0.8, Absolute Granulocytes 4.3, Absolute Lymphocytes 2.3, Absolute Monocytes 0.7 H, Absolute Eosinophils 1.2, Absolute Basophils 0.1, PUBS MCHC 32.3 L Assessment/Plan Assessment: This is a 31-year-old female with past medical history of ESRD on peritoneal dialysis, uncontrolled hypertension with multiple admissions for hypertensive urgency and CVA, basal ganglia hemorrhage, recently admitted to [facility] for hypertensive urgency in September 2016, presents with severe headache associated with nausea and vomiting. Vitals upon presentation temperature 98.1, pulse 104, respiratory rate 18, blood pressure 198/100, 94, satting in mid 90s on room air. Pertinent labs WBC 12.2, H&H 11 and 33.4, platelets 345, creatinine 10.3, BUN 50 , Chest x-ray showed:, IMPRESSION: Interval resolution of the left-sided pleural effusion. Small right-sided pleural effusion is now visualized with some mild platelike right mid to lower lobe opacities suggesting atelectasis. Mild central pulmonary vascular prominence without overt edema. Mild cardiomegaly. ED course: Patient received IV hydralazine 20 mg and IV Lipitor 20 mg Nitropaste ,, the pressure further creeped up to 300/150. A decision was made to admit her to ICU for close monitoring of hypertensive emergency. We are currently managing the patient for chronic conditions: Hypertensive Urgency: Patient presented with blood pressure systolic ranging between 250 and 300MMHG. Keeping in mind patient has history of multiple ischemic strokes, we have been cautiously managing her blood pressure to prevent any further episodes of ischemic strokes . We have restarted amlodipine 10 mg daily, hydralazine 100MG twice a day, clonidine patch 0.2 mg, labetalol 200 mg 2 times a day as per cardiology recommendation with close blood pressure monitoring Blood pressure goal 160-180 systolic. Headache: Resolved, Likely secondary to dangerously elevated blood pressure, management as per pain pathway. End-stage renal disease on peritoneal dialysis: Nephrology on board, patient getting peritoneal dialysis regularly. We'll continue calcium carbonate 1250 mg twice a day Anemia : Likely secondary to end-stage renal disease, H&H 11.0(around baseline) and 33.7, holding off of Epogen for now. History of anxiety: We'll continue home dose of Xanax 0.5 mg daily. Diet: Renal dialysis DVT prophylaxis : Subcutaneous heparin Patient is full code Problem List: 1. Hypertensive urgency 2. End-stage renal disease on peritoneal dialysis Pain Ratin Pain Location: JAW Pain Goal: Remain pain free Pain Plan: Hydromorphone Tomorrow's Labs & Rationales: BEP for lites monitor Consulting Request: Consulting Specialty: Nephrology Consulting Physician: Reason for Consult: Peritoneal Dialysis
[2016-12-12 16:00] VITALS: BP 140/70
--- NOTE | 2016-12-12 20:33 | RADIOLOGY REPORT ---
EXAMINATION: CHEST 1 VIEW CLINICAL INFORMATION: Decreased lung base sounds. Shortness of breath. COMPARISON: 12/10/2016. TECHNIQUE: An AP view of the chest is provided. FINDINGS: The cardiac silhouette is enlarged, but stable. The mediastinal and hilar contours are unremarkable. There are neither pleural effusions nor pneumothoraces. There are no consolidations. There is stable mild blunting of the right lateral aspect right ankle. The osseous structures are unremarkable. IMPRESSION: No evidence for acute disease. Stable mild blunting of the right lateral costophrenic angle. Stable cardiomegaly.
[2016-12-12 23:50] VITALS: BP 144/88
[2016-12-13 08:00] VITALS: BP 160/84
--- NOTE | 2016-12-13 08:34 | PN- Housestaff ---
Subjective Follow-up For: hypertensive urgency Subjective: Pt seen this morning, BP better controlled now with systolic BP in 140s. Na 136 to 132. K 5.3 to 4.7. BUN/cr 52/10.7. Mag 1.6 (still has 1 X mag ox ordered for am). Pt reports chills and bilateral jaw pain (worse on the right, constant, exacerbated by chewing). She also has some headache and neck pain that she usually gets when her blood pressure is high. However she was sitting comfortably in bed and appeared to be in no distress. She rates the pain as 6/10. Review of Systems Constitutional: Reports: see HPI. Objective Last 24 Hrs of Vital Signs/I&O Vital Signs Date Time Temp Pulse Resp B/P Pulse O2 O2 Flow FiO2 Ox Delivery Rate 12/13 1126 68 204/114 12/13 1125 68 204/114 12/13 1125 68 204/114 12/13 0800 96 Room Air 12/13 0800 98.1 74 18 160/84 98 Room Air 12/12 2350 98.4 72 23 144/88 98 Room Air 12/12 2200 78 140/82 12/12 2200 140/82 12/12 1600 98.0 70 22 140/70 98 Room Air 12/12 1540 70 140/70 Intake & Output 12/13 1600 12/13 0800 12/13 0000 Intake Total 120 500 Output Total 200 700 Balance -80 -200 Intake, IV 20 Intake, Oral 120 480 Output, 200 700 Dialysate Physical Exam General Appearance: Alert, Oriented X3, Cooperative Skin: No Significant Lesion HEENT: Atraumatic Cardiovascular: Regular Rate, Normal S1, Normal S2 Lungs: Clear to Auscultation, Normal Air Movement Abdomen: Normal Bowel Sounds, Soft, No Tenderness Extremities: No Edema Current Medications: Current Medications Sig/Bryan Start time Last Medication Dose Route Stop Time Status Admin Acetaminophen 650 MG Q4P PRN 12/10 1930 AC PO Alprazolam 0.5 MG TID PRN 12/11 2044 AC 12/13 PO 12/19 2043 0003 Amlodipine Besylate 10 MG DAILY 12/11 1728 AC 12/13 PO 1126 Aspirin 81 MG DAILY 12/11 2147 AC 12/13 PO 1125 Calcium Carbonate 500 MG ONCE ONE 12/12 2144 DC 12/12 PO 12/12 2145 2339 Gentamicin Sulfate 1 UDAY DAILY PRN 12/10 2300 AC 12/11 TOP 0925 Hydralazine HCl 100 MG BID 12/12 1303 AC 12/13 PO 1125 Hydromorphone HCl 0.2 MG ONCE ONE 12/12 2044 CAN IV 12/12 2045 Hydromorphone HCl 0.4 MG ONCE ONE 12/12 204 DC 12/12 IV 12/12 2045 205 Hydromorphone HCl 0.4 MG Q4-6 PRN PRN 12/11 1515 AC 12/13 IV 0827 Labetalol HCl 200 MG TID 12/11 1032 AC 12/13 PO 1125 Magnesium Oxide 400 MG BID 12/12 2200 DC 12/13 PO 12/13 1001 1126 Ondansetron HCl 4 MG Q6PRN PRN 12/10 1730 AC 12/13 IV 1117 Last 24 Hrs of Lab/Ashwin Results Last 24 Hrs of Labs/Mics: Laboratory Tests 12/13/16 0525: Anion Gap 9, Estimated GFR 4 L, Glucose 77, Calcium 8.5, Phosphorus 4.7 H, Magnesium 1.6, Total Bilirubin 0.3, AST 13 L, ALT 29, Albumin 2.9 L Assessment/Plan Assessment: This is a 31-year-old female with past medical history of ESRD on peritoneal dialysis, uncontrolled hypertension with multiple admissions for hypertensive urgency and CVA, basal ganglia hemorrhage, recently admitted to [facility] for hypertensive urgency in September 2016, presents with severe headache associated with nausea and vomiting. Vitals upon presentation temperature 98.1, pulse 104, respiratory rate 18, blood pressure 198/100, 94, satting in mid 90s on room air. Pertinent labs WBC 12.2, H&H 11 and 33.4, platelets 345, creatinine 10.3, BUN 50 , Chest x-ray IMPRESSION: Interval resolution of the left-sided pleural effusion. Small right-sided pleural effusion is now visualized with some mild platelike right mid to lower lobe opacities suggesting atelectasis. Mild central pulmonary vascular prominence without overt edema. Mild cardiomegaly. ED course: Patient received IV hydralazine 20 mg and IV Lipitor 20 mg Nitropaste , the pressure further creeped up to 300/150. A decision was made to admit her to ICU for close monitoring of hypertensive emergency. We are currently managing the patient for chronic conditions: Hypertensive Urgency: Patient presented with blood pressure systolic ranging between 250 and 300MMHG. Keeping in mind patient has history of multiple ischemic strokes, we have been cautiously managing her blood pressure to prevent any further episodes of ischemic strokes . * Continuehydralazine 100MG twice a day, clonidine patch 0.2 mg, labetalol 200 mg BID as per cardiology recommendation with close blood pressure monitoring * Amlodipine 10 mg daily given today, discontinued, will start giving nifedipine XL 30 starting tomorrow. Nephro recc change her back to amlodipine or increase her Nifidipine dose to 60, then 90 mg. Restart losartan 100 mg a day. Can also titirate up labetalol as on relative low doses. * Blood pressure goal 160-180 systolic. * Follow up renin (lab has to approve, please confirm in am), nephro doesn't think renins or evaluation for large vessel renal artery stenosis would be fruitful at this juncture. Nephrectomies in ESRD have little impact on BP control. She is still volume overloaded and does not ultrafilter well, probably due to prior peritonitis. * Consider renal angiogram after premedication for contrast allergy : As per Dr. Lane, this will assess for a partially functioning kidney that is secreting too much renin. If present then cryoabliteration of the kidney may help her poorly controlled pressure. * Considered 24 hour urine catecholamine, metanephrine, but won't be a good test for her given she does not make urine. Headache: Likely secondary to dangerously elevated blood pressure, management as per pain pathway. End-stage renal disease on peritoneal dialysis: Nephrology on board, patient getting peritoneal dialysis regularly. We'll continue calcium carbonate 1250 mg twice a day Anemia : Likely secondary to end-stage renal disease, H&H 11.0(around baseline) and 33.7, holding off of Epogen for now. History of anxiety: We'll continue home dose of Xanax 0.5 mg daily. Diet: Renal dialysis DVT prophylaxis : Subcutaneous heparin Patient is full code Problem List: 1. Hypertensive urgency Pain Ratin Pain Location: head and neck Pain Goal: Pain 7 or less Pain Plan: mod pp Tomorrow's Labs & Rationales: bep mag and phos for electrolyte abnormalities DVT/Prophylaxis: mechanical, pharmacological Consulting Request: Consulting Specialty: Nephrology Consulting Physician: Reason for Consult: Peritoneal Dialysis
--- NOTE | 2016-12-13 11:58 | PN- Cardiology ---
Subjective Subjective: * Patient complains of a neck and jaw discomfort bilaterally. The neck discomfort tends to be a recurrent phenomenon when admitted for BP control. * Patient remains hypertensive in sinus rhythm. * creatinine 10.7 With potassium 4.7 Objective Vital Signs and I&Os Vital Signs Date Time Temp Pulse Resp B/P Pulse O2 O2 Flow FiO2 Ox Delivery Rate 12/13 1126 68 204/114 12/13 1125 68 204/114 12/13 1125 68 204/114 12/13 0800 96 Room Air 12/13 0800 98.1 74 18 160/84 98 Room Air 12/12 2350 98.4 72 23 144/88 98 Room Air 12/12 2200 78 140/82 12/12 2200 140/82 12/12 1600 98.0 70 22 140/70 98 Room Air 12/12 1540 70 140/70 Intake & Output 12/13 1600 12/13 0800 12/13 0000 12/12 1600 12/12 0800 12/12 0000 Intake Total 120 500 860 250 380 Output Total 200 400 800 500 500 Balance -80 100 60 -250 -120 Intake, IV 20 60 10 20 Intake, Oral 120 480 800 240 360 Output, 200 400 800 500 500 Dialysate Patient 168 lb Weight Physical Exam: General: WD/ obese female in NAD; alert and oriented x 3 HEENT: NC/AT, PERRL, EOMI, clear oropharynx neck: no JVD, no carotid bruit Heart: RRR w/o mumur Lungs: clear bilaterally Abdomen: soft, obese, NT, unbilical hernia Extremities: no edema Assessment/Plan Assessment/Plan * This patient has repeated bouts of severe hypertension. It is not clear if this patient ever had an adequate workup for renal artery stenosis. Would check a serum renin level and consider a renal angiogram after premedication for a contrast allergy. This will assess for a partially functioning kidney that is secreting too much renin. If present then cryoabliteration of the kidney may help her poorly controlled pressure. Consisder a repear workup for pheochromocytoma. * Continue labetolol 200mg PO BID and hydralazine 100mg BID. Discontinue Amlodipine and begin nifedipine ER 30mg daily. Continue telemetry? Yes
--- NOTE | 2016-12-13 12:26 | PN- Nephrology ---
Assessment/Plan Assessment: I don't think renins or evaluation for large vessel renal artery stenosis would be fruitful at this juncture. Nephrectomies in ESRD have little impact on BP control. She is still volume overloaded and does not ultrafilter well, probably due to prior peritonitis. Suggestion: Continue on 4.25 alternating with 2.5% dextrose. I would either change her back to amlodipine or increase her Nifidipine dose to 60, then 90 mg. Restart losartan 100 mg a day. Can also titirate up labetalol as on relative low doses. If we can get some fluid off I suspect her BP will improve. Subjective Subjective: Feels well, BP still labile. Dialysis going well but still about 10 lbs over previous dry weight and only 1100 cc net UF. Objective Vital Signs and I&Os Vital Signs Date Time Temp Pulse Resp B/P Pulse O2 O2 Flow FiO2 Ox Delivery Rate 12/13 1126 68 204/114 12/13 1125 68 204/114 12/13 1125 68 204/114 12/13 0800 96 Room Air 12/13 0800 98.1 74 18 160/84 98 Room Air 12/12 2350 98.4 72 23 144/88 98 Room Air 12/12 2200 78 140/82 12/12 2200 140/82 12/12 1600 98.0 70 22 140/70 98 Room Air 12/12 1540 70 140/70 Intake & Output 12/13 1600 12/13 0400 12/12 1600 12/12 0400 12/11 1600 12/11 0400 Intake Total 559 020 1515 380 422 Output Total 515 000 6198 500 0 Balance -80 100 -190 -120 422 Intake, IV 20 70 20 62 Intake, Oral 841 597 2905 360 360 Number 0 Bowel Movements Output, 689 347 6205 500 Dialysate Output, Urine 0 Patient 168 lb 160 lb Weight Physical Exam: NAD VS as above Lungs: clear CV: no rub Abd: nontender Exts: no edema Neuro : A&O Current Medications: Current Medications Sig/Bryan Start time Last Medication Dose Route Stop Time Status Admin Acetaminophen 650 MG Q4P PRN 12/10 1930 AC PO Alprazolam 0.5 MG TID PRN 12/11 2044 AC 12/13 PO 12/19 2043 0003 Amlodipine Besylate 10 MG DAILY 12/11 1728 DC 12/13 PO 1126 Aspirin 81 MG DAILY 12/11 2147 AC 12/13 PO 1125 Calcium Carbonate 500 MG ONCE ONE 12/12 2145 DC 12/12 PO 12/12 214 2339 Gentamicin Sulfate 1 UDAY DAILY PRN 12/10 2300 AC 12/11 TOP 0925 Hydralazine HCl 100 MG BID 12/12 1303 AC 12/13 PO 1125 Hydromorphone HCl 0.2 MG ONCE ONE 12/12 2044 CAN IV 12/12 2045 Hydromorphone HCl 0.4 MG ONCE ONE 12/12 204 DC 12/12 IV 12/12 2045 205 Hydromorphone HCl 0.4 MG Q4-6 PRN PRN 12/11 1515 AC 12/13 IV 0827 Labetalol HCl 200 MG BID 12/13 2200 AC PO Labetalol HCl 200 MG TID 12/11 1032 DC 12/13 PO 1125 Magnesium Oxide 400 MG BID 12/12 2200 DC 12/13 PO 12/13 1001 1126 Nifedipine 30 MG DAILY 12/14 1000 AC PO Ondansetron HCl 4 MG Q6PRN PRN 12/10 1730 AC 12/13 IV 1117 Results Pertinent Lab Results: Laboratory Tests 12/13 12/12 0525 0415 Chemistry Sodium (137 - 145 mmol/L) 132 L 136 L Potassium (3.5 - 5.1 mmol/L) 4.7 5.3 H Chloride (98 - 107 mmol/L) 93 L 98 Carbon Dioxide (22 - 30 mmol/L) 30 24 Anion Gap (5 - 16) 9 15 BUN (7 - 17 mg/dL) 52 H 62 H Creatinine (0.5 - 1.0 mg/dL) 10.7 *H 11.2 *H Estimated GFR (>60 ml/min) 4 L 4 L Glucose (65 - 99 mg/dL) 77 77 Calcium (8.4 - 10.2 mg/dL) 8.5 8.4 Phosphorus (2.5 - 4.5 mg/dL) 4.7 H 4.8 H Magnesium (1.6 - 2.3 mg/dL) 1.6 1.7 Total Bilirubin (0.2 - 1.3 mg/dL) 0.3 0.5 AST (14 - 36 U/L) 13 L 17 ALT (9 - 52 U/L) 29 29 Albumin (3.5 - 5.0 g/dL) 2.9 L 3.0 L Hematology CBC w Diff NO MAN DIFF REQ WBC (4.8 - 10.8 /CUMM) 8.6 RBC (4.20 - 5.40 /CUMM) 3.25 L Hgb (12.0 - 16.0 G/DL) 9.6 L Hct (37 - 47 %) 29.9 L MCV (81.0 - 99.0 FL) 91.9 MCH (27.0 - 31.0 PG) 29.7 RDW (11.5 - 14.5 %) 20.6 H Plt Count (130 - 400 /CUMM) 235 MPV (7.4 - 10.4 FL) 8.5 Gran % (42.2 - 75.2 %) 50.2 Lymphocytes % (20.5 - 51.1 %) 26.5 Monocytes % (1.7 - 9.3 %) 8.5 Eosinophils % (0 - 5 %) 14.0 H Basophils % (0.0 - 2.0 %) 0.8 Absolute Granulocytes (1.4 - 6.5 /CUMM) 4.3 Absolute Lymphocytes (1.2 - 3.4 /CUMM) 2.3 Absolute Monocytes (0.10 - 0.60 /CUMM) 0.7 H Absolute Eosinophils (0.0 - 0.7 /CUMM) 1.2 Absolute Basophils (0.0 - 0.2 /CUMM) 0.1 PUBS MCHC (33.0 - 37.0 G/DL) 32.3 L 12/11 0400 Chemistry Sodium (137 - 145 mmol/L) 135 L Potassium (3.5 - 5.1 mmol/L) 5.2 H Chloride (98 - 107 mmol/L) 97 L Carbon Dioxide (22 - 30 mmol/L) 27 Anion Gap (5 - 16) 11 BUN (7 - 17 mg/dL) 57 H Creatinine (0.5 - 1.0 mg/dL) 11.1 *H Estimated GFR (>60 ml/min) 4 L Glucose (65 - 99 mg/dL) 93 Calcium (8.4 - 10.2 mg/dL) 8.2 L Phosphorus (2.5 - 4.5 mg/dL) 4.4 Magnesium (1.6 - 2.3 mg/dL) 1.7 Total Bilirubin (0.2 - 1.3 mg/dL) 0.6 AST (14 - 36 U/L) 10 L ALT (9 - 52 U/L) 33 Albumin (3.5 - 5.0 g/dL) 2.6 L Hematology CBC w Diff NO MAN DIFF REQ WBC (4.8 - 10.8 /CUMM) 7.1 RBC (4.20 - 5.40 /CUMM) 2.72 L Hgb (12.0 - 16.0 G/DL) 8.1 L Hct (37 - 47 %) 24.5 L MCV (81.0 - 99.0 FL) 90.1 MCH (27.0 - 31.0 PG) 29.6 RDW (11.5 - 14.5 %) 20.4 H Plt Count (130 - 400 /CUMM) 240 MPV (7.4 - 10.4 FL) 9.0 Gran % (42.2 - 75.2 %) 63.2 Lymphocytes % (20.5 - 51.1 %) 20.4 L Monocytes % (1.7 - 9.3 %) 8.3 Eosinophils % (0 - 5 %) 7.3 H Basophils % (0.0 - 2.0 %) 0.8 Absolute Granulocytes (1.4 - 6.5 /CUMM) 4.5 Absolute Lymphocytes (1.2 - 3.4 /CUMM) 1.4 Absolute Monocytes (0.10 - 0.60 /CUMM) 0.6 Absolute Eosinophils (0.0 - 0.7 /CUMM) 0.5 Absolute Basophils (0.0 - 0.2 /CUMM) 0.1 PUBS MCHC (33.0 - 37.0 G/DL) 32.8 L
[2016-12-13 16:00] VITALS: BP 150/40
[2016-12-14] VITALS: BP 160/100
[2016-12-14 08:00] VITALS: BP 134/84
--- NOTE | 2016-12-14 10:35 | PN- Nephrology ---
Assessment/Plan Assessment: 1. 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 HTN: better control but labile; KRISTEN not an issue w ESRD & non functioning kidneys 3. SOB/pleuritic CP: needs repeat CXR --> consider CTA Suggestion: 1. OK to transfer to floor from renal persppective 2. repeat CXR --> consider CTA chest 3. increase labetolo 300 mg bid Subjective Subjective: C/O SOB & L sided pleuritic CP w/o cough or fever PD w/o probelm --> UF >3 liters Objective Vital Signs and I&Os Vital Signs Date Time Temp Pulse Resp B/P Pulse O2 O2 Flow FiO2 Ox Delivery Rate 12/14 0800 99.5 72 14 134/84 96 Room Air 12/14 0400 95 Room Air 12/14 0000 95 Room Air 12/14 0000 97.4 68 18 160/100 95 Room Air 12/13 2120 98.3 67 16 151/87 12/13 2119 98.3 69 16 151/87 12/13 1605 98.0 72 27 168/92 12/13 1600 98.0 64 20 150/40 98 Room Air 12/13 1200 96 Room Air 12/13 1126 68 204/114 12/13 1125 68 204/114 12/13 1125 68 204/114 Intake & Output 12/14 1600 12/14 0400 12/13 1600 12/13 0400 12/12 1600 12/12 0400 Intake Total 100 360 045 381 6746 380 Output Total 1850 1900 094 495 0463 500 Balance -1750 -1540 290 100 -190 -120 Intake, IV 20 70 20 Intake, Oral 100 360 235 340 9251 360 Number 0 0 Bowel Movements Output, 1850 1900 370 791 0117 500 Dialysate Output, Urine 0 Patient 177 lb 174 lb 168 lb Weight Physical Exam General Appearance: well developed/nourished, no apparent distress Head: atraumatic, normal appearance Ears, Nose, Throat: normal ENT inspection Neck: normal inspection Respiratory: no respiratory distress, quiet respiration, decreased L base w dullness Cardiovascular: regular rate/rhythm, no rub Abdomen: soft, non-tender, no organomegaly Back: normal inspection Extremities: no edema Neurologic/Psychiatric: awake, alert, oriented x 3 Lymphatic: no anterior cervical jazmin Current Medications: Current Medications Sig/Bryan Start time Last Medication Dose Route Stop Time Status Admin Acetaminophen 650 MG Q4P PRN 12/10 1930 AC PO Alprazolam 0.5 MG TID PRN 12/11 2045 AC 12/14 PO 12/18 204 0038 Amlodipine Besylate 10 MG DAILY 12/11 1728 DC 12/13 PO 1126 Aspirin 81 MG DAILY 12/10 2148 AC 12/13 PO 1125 Benzocaine 1 UDAY Q6-PRN PRN 12/13 1915 AC TOP Calcium Carbonate 500 MG ONCE ONE 12/13 2100 DC 12/13 PO 12/13 2101 2244 Gentamicin Sulfate 1 UDAY DAILY PRN 12/10 2300 AC 12/11 TOP 0925 Hydralazine HCl 100 MG BID 12/12 1303 AC 12/13 PO 2119 Hydromorphone HCl 0.2 MG ONCE ONE 12/14 0215 DC 12/14 IV 12/14 0216 0218 Hydromorphone HCl 0.4 MG Q4-6 PRN PRN 12/11 1515 AC 12/14 IV 0640 Labetalol HCl 200 MG BID 12/13 2200 AC 12/13 PO 2120 Labetalol HCl 200 MG TID 12/11 1032 DC 12/13 PO 1125 Losartan Potassium 100 MG DAILY 12/13 1330 AC 12/13 PO 1605 Nifedipine 30 MG DAILY 12/14 1000 AC PO Ondansetron HCl 4 MG Q6PRN PRN 12/10 1730 AC 12/13 IV 1117 Results Pertinent Lab Results: Laboratory Tests 12/14 12/14 12/14 12/13 12/13 0240 0240 0240 1203 1202 Chemistry Sodium (137 - 145 mmol/L) 134 L Potassium (3.5 - 5.1 mmol/L) 4.8 Chloride (98 - 107 mmol/L) 95 L Carbon Dioxide (22 - 30 mmol/L) 29 Anion Gap (5 - 16) 10 BUN (7 - 17 mg/dL) 52 H Creatinine (0.5 - 1.0 mg/dL) 10.1 *H Estimated GFR (>60 ml/min) 5 L BUN/Creatinine Ratio (7 - 25 %) 5.1 L Phosphorus (2.5 - 4.5 mg/dL) 4.5 Magnesium (1.6 - 2.3 mg/dL) 1.7 Troponin I (< 0.11 ng/ml) 0.03 Renin Pending Urines Urine Total Volume Cancelled Ur Epinephrine 24 Hr Cancelled U Norepinephrine 24 Hr Cancelled Urine Total Volume Cancelled U Metanephrines 24 Hr Cancelled U Normetanephrine 24h Cancelled U Tot Metanephrine 24h Cancelled Ur Dopamine 24 Hr Cancelled U Tot Catecholamine 24h Cancelled Urine Creatinine Cancelled 12/13 12/12 1615 4083 Chemistry Sodium (137 - 145 mmol/L) 132 L 136 L Potassium (3.5 - 5.1 mmol/L) 4.7 5.3 H Chloride (98 - 107 mmol/L) 93 L 98 Carbon Dioxide (22 - 30 mmol/L) 30 24 Anion Gap (5 - 16) 9 15 BUN (7 - 17 mg/dL) 52 H 62 H Creatinine (0.5 - 1.0 mg/dL) 10.7 *H 11.2 *H Estimated GFR (>60 ml/min) 4 L 4 L Glucose (65 - 99 mg/dL) 77 77 Calcium (8.4 - 10.2 mg/dL) 8.5 8.4 Phosphorus (2.5 - 4.5 mg/dL) 4.7 H 4.8 H Magnesium (1.6 - 2.3 mg/dL) 1.6 1.7 Total Bilirubin (0.2 - 1.3 mg/dL) 0.3 0.5 AST (14 - 36 U/L) 13 L 17 ALT (9 - 52 U/L) 29 29 Albumin (3.5 - 5.0 g/dL) 2.9 L 3.0 L Hematology CBC w Diff NO MAN DIFF REQ WBC (4.8 - 10.8 /CUMM) 8.6 RBC (4.20 - 5.40 /CUMM) 3.25 L Hgb (12.0 - 16.0 G/DL) 9.6 L Hct (37 - 47 %) 29.9 L MCV (81.0 - 99.0 FL) 91.9 MCH (27.0 - 31.0 PG) 29.7 RDW (11.5 - 14.5 %) 20.6 H Plt Count (130 - 400 /CUMM) 235 MPV (7.4 - 10.4 FL) 8.5 Gran % (42.2 - 75.2 %) 50.2 Lymphocytes % (20.5 - 51.1 %) 26.5 Monocytes % (1.7 - 9.3 %) 8.5 Eosinophils % (0 - 5 %) 14.0 H Basophils % (0.0 - 2.0 %) 0.8 Absolute Granulocytes (1.4 - 6.5 /CUMM) 4.3 Absolute Lymphocytes (1.2 - 3.4 /CUMM) 2.3 Absolute Monocytes (0.10 - 0.60 /CUMM) 0.7 H Absolute Eosinophils (0.0 - 0.7 /CUMM) 1.2 Absolute Basophils (0.0 - 0.2 /CUMM) 0.1 PUBS MCHC (33.0 - 37.0 G/DL) 32.3 L Imaging/Other Studies: CXR 12/12/16: The cardiac silhouette is enlarged, but stable. The mediastinal and hilar contours are unremarkable. There are neither pleural effusions nor pneumothoraces. There are no consolidations. There is stable mild blunting of the right lateral aspect right ankle. The osseous structures are unremarkable. IMPRESSION: No evidence for acute disease. Stable mild blunting of the right lateral costophrenic angle. Stable cardiomegaly.
--- NOTE | 2016-12-14 10:52 | PN- Housestaff ---
Subjective Follow-up For: hypertensive urgency Subjective: Patient seen and examined this morning. She was then comfortably in bed in no acute distress, but complains of left-sided pleuritic chest pain., Will get an chest x-ray to rule out any pleural effusion. Otherwise her blood pressure controlled, no hypoxia, no tachycardia, continues to complain of bilateral jaw pain but better than yesterday, no other complaints. Review of Systems Constitutional: Denies: chills, fever. Cardiovascular: Reports: see HPI. Denies: chest pain. Respiratory: Denies: cough, short of breath, sputum production. Gastrointestinal: Denies: abdominal pain, constipation, diarrhea, nausea, vomiting. Genitourinary: Denies: dysuria, frequency. Objective Last 24 Hrs of Vital Signs/I&O Vital Signs Date Time Temp Pulse Resp B/P Pulse O2 O2 Flow FiO2 Ox Delivery Rate 12/14 0800 99.5 72 14 134/84 96 Room Air 12/14 0400 95 Room Air 12/14 0000 95 Room Air 12/14 0000 97.4 68 18 160/100 95 Room Air 12/13 2120 98.3 67 16 151/87 12/13 2119 98.3 69 16 151/87 12/13 1605 98.0 72 27 168/92 12/13 1600 98.0 64 20 150/40 98 Room Air 12/13 1200 96 Room Air 12/13 1126 68 204/114 12/13 1125 68 204/114 12/13 1125 68 204/114 Intake & Output 12/14 1600 12/14 0800 12/14 0000 Intake Total 100 360 Output Total 3750 Balance -3650 360 Intake, Oral 100 360 Number 0 Bowel Movements Output, 3750 Dialysate Patient 80.343 kg Weight Physical Exam General Appearance: Alert, Oriented X3, Cooperative, No Acute Distress Cardiovascular: Regular Rate, Normal S1, Normal S2 Lungs: left decreased basl breath sounds Abdomen: Normal Bowel Sounds, Soft, No Tenderness Extremities: No Clubbing, No Cyanosis, No Edema Current Medications: Current Medications Sig/Bryan Start time Last Medication Dose Route Stop Time Status Admin Acetaminophen 650 MG Q4P PRN 12/10 1930 AC PO Alprazolam 0.5 MG TID PRN 12/11 2044 AC 12/14 PO 12/18 204 0038 Amlodipine Besylate 10 MG DAILY 12/11 1728 DC 12/13 PO 1126 Aspirin 81 MG DAILY 12/10 2148 AC 12/14 PO 1056 Benzocaine 1 UDAY Q6-PRN PRN 12/13 1915 AC TOP Calcium Carbonate 500 MG ONCE ONE 12/13 2100 DC 12/13 PO 12/13 2101 2244 Gentamicin Sulfate 1 UDAY DAILY PRN 12/10 2300 AC 12/11 TOP 0925 Hydralazine HCl 100 MG BID 12/12 1303 AC 12/14 PO 1056 Hydromorphone HCl 0.4 MG Q6P PRN 12/14 1045 AC 12/14 IV 1057 Hydromorphone HCl 0.2 MG ONCE ONE 12/14 0215 DC 12/14 IV 12/14 0216 0218 Hydromorphone HCl 0.4 MG Q4-6 PRN PRN 12/11 1515 DC 12/14 IV 0640 Labetalol HCl 300 MG BID 12/14 2200 AC PO Labetalol HCl 200 MG BID 12/13 2200 DC 12/13 PO 2120 Labetalol HCl 200 MG TID 12/11 1032 DC 12/13 PO 1125 Losartan Potassium 100 MG DAILY 12/13 1330 AC 12/14 PO 1056 Nifedipine 30 MG DAILY 12/14 1000 AC PO Ondansetron HCl 4 MG Q6PRN PRN 12/10 1730 AC 12/13 IV 1117 Last 24 Hrs of Lab/Ashwin Results Last 24 Hrs of Labs/Mics: Laboratory Tests 12/14/16 0240: Troponin I 0.03 12/14/16 0240: Renin Pending 12/14/16 0240: Anion Gap 10, Estimated GFR 5 L, BUN/Creatinine Ratio 5.1 L, Phosphorus 4.5, Magnesium 1.7 12/13/16 1203: Urine Total Volume Cancelled, U Metanephrines 24 Hr Cancelled, U Normetanephrine 24h Cancelled, U Tot Metanephrine 24h Cancelled 12/13/16 1202: Urine Total Volume Cancelled, Ur Epinephrine 24 Hr Cancelled, U Norepinephrine 24 Hr Cancelled, Ur Dopamine 24 Hr Cancelled, U Tot Catecholamine 24h Cancelled, Urine Creatinine Cancelled Assessment/Plan Assessment: This is a 31-year-old female with past medical history of ESRD on peritoneal dialysis, uncontrolled hypertension with multiple admissions for hypertensive urgency and CVA, basal ganglia hemorrhage, recently admitted to [facility] for hypertensive urgency in September 2016, presents with severe headache associated with nausea and vomiting. Vitals upon presentation temperature 98.1, pulse 104, respiratory rate 18, blood pressure 198/100, 94, satting in mid 90s on room air. Pertinent labs WBC 12.2, H&H 11 and 33.4, platelets 345, creatinine 10.3, BUN 50 , Chest x-ray IMPRESSION: Interval resolution of the left-sided pleural effusion. Small right-sided pleural effusion is now visualized with some mild platelike right mid to lower lobe opacities suggesting atelectasis. Mild central pulmonary vascular prominence without overt edema. Mild cardiomegaly. ED course: Patient received IV hydralazine 20 mg and IV Lipitor 20 mg Nitropaste , the pressure further creeped up to 300/150. A decision was made to admit her to ICU for close monitoring of hypertensive emergency. We are currently managing the patient for chronic conditions: Hypertensive Urgency: Patient presented with blood pressure systolic ranging between 250 and 300MMHG. Keeping in mind patient has history of multiple ischemic strokes, we have been cautiously managing her blood pressure to prevent any further episodes of ischemic strokes . * Continuehydralazine 100MG twice a day, clonidine patch 0.2 mg, labetalol 200 mg BID as per cardiology recommendation with close blood pressure monitoring * Losartan 200 mg increased to 300 mg twice a day, as per nephro recommendation. * Blood pressure goal 150 systolic. * Follow up renin (lab has to approve, please confirm in am), nephro doesn't think renins or evaluation for large vessel renal artery stenosis would be fruitful at this juncture. Nephrectomies in ESRD have little impact on BP control. She is still volume overloaded and does not ultrafilter well, probably due to prior peritonitis. * Consider renal angiogram after premedication for contrast allergy : As per Dr. aLne, this will assess for a partially functioning kidney that is secreting too much renin. If present then cryoabliteration of the kidney may help her poorly controlled pressure. * Considered 24 hour urine catecholamine, metanephrine, but won't be a good test for her given she does not make urine. Headache: Likely secondary to dangerously elevated blood pressure, management as per pain pathway. End-stage renal disease on peritoneal dialysis: Nephrology on board, patient getting peritoneal dialysis regularly. We'll continue calcium carbonate 1250 mg twice a day Anemia : Likely secondary to end-stage renal disease, H&H 11.0(around baseline) and 33.7, holding off of Epogen for now. History of anxiety: We'll continue home dose of Xanax 0.5 mg daily. Diet: Renal dialysis DVT prophylaxis : Subcutaneous heparin Patient is full code Problem List: 1. Peritoneal dialysis 2. ESRD (end stage renal disease) on dialysis 3. DVT prophylaxis Pain Ratin Pain Location: jaw Pain Goal: Remain pain free Pain Plan: dilaudid Tomorrow's Labs & Rationales: bep for lytes monitoring Consulting Request: Consulting Specialty: Nephrology Consulting Physician: Reason for Consult: Peritoneal Dialysis
--- NOTE | 2016-12-14 11:34 | RADIOLOGY REPORT ---
EXAMINATION: XR PORTABLE CHEST CLINICAL INFORMATION: Decreased basal breath sounds and shortness of breath. COMPARISON: 12/12/2016 TECHNIQUE: Portable AP view of the chest was obtained. FINDINGS: The cardiomediastinal silhouette is enlarged, there is calcification of the thoracic aorta. Mild pulmonary vascular congestion. There are low lung volumes. No definite focal consolidation. There is blunting of the bilateral costophrenic sulci which may reflect atelectasis versus small effusions. No pneumothorax. IMPRESSION: Stably enlarged cardiomediastinal silhouette. Mild pulmonary vascular congestion.
--- NOTE | 2016-12-14 14:25 | PN- Cardiology ---
Subjective Subjective: The patient complains of sharp pains in the right side of the chest with inspiration. She also notes intermittent mild right jaw pain. No chest pain. No shortness of breath. No diaphoresis. No lightheadedness or dizziness. No syncope. Objective Vital Signs and I&Os Vital Signs Date Time Temp Pulse Resp B/P Pulse O2 O2 Flow FiO2 Ox Delivery Rate 12/14 0800 99.5 72 14 134/84 96 Room Air 12/14 0400 95 Room Air 12/14 0000 95 Room Air 12/14 0000 97.4 68 18 160/100 95 Room Air 12/13 2120 98.3 67 16 151/87 12/13 2119 98.3 69 16 151/87 12/13 1605 98.0 72 27 168/92 12/13 1600 98.0 64 20 150/40 98 Room Air Intake & Output 12/14 1600 12/14 0800 12/14 0000 12/13 1600 12/13 0800 12/13 0000 Intake Total 100 360 370 120 500 Output Total 3750 0 200 700 Balance -3650 360 370 -80 -200 Intake, IV 20 Intake, Oral 100 360 370 120 480 Number 0 0 Bowel Movements Output, 3750 200 700 Dialysate Output, Urine 0 Patient 177 lb 174 lb Weight Physical Exam: Gen: The patient is in no acute distress HEENT: Normal nose, ears, and oropharynx. Pupils equal bilaterally. Conjunctiva normal. Neck: Supple with no JVD, no masses, and no thyromegaly Lungs: Clear to auscultation with normal respiratory effort Heart: RRR, S1, S2,1/6 systolic murmur. No peripheral edema, 2+ pulses in the lower extremities bilaterally Abdomen: Soft, nontender, no masses. No hepatomegaly. No splenomegaly Extremities: No clubbing or cyanosis. Normal muscle strength in the upper and lower extremities Skin: Normal skin turgor with no skin ulcers or lesions noted. Current Medications: Current Medications Sig/Bryan Start time Last Medication Dose Route Stop Time Status Admin Acetaminophen 650 MG Q4P PRN 12/10 1929 AC PO Alprazolam 0.5 MG TID PRN 12/11 2044 AC 12/14 PO 12/19 2043 0038 Aspirin 81 MG DAILY 12/11 2147 AC 12/14 PO 1056 Benzocaine 1 UDAY Q6-PRN PRN 12/13 1914 AC TOP Calcium Carbonate 500 MG ONCE ONE 12/13 2100 DC 12/13 PO 12/13 2101 2244 Gentamicin Sulfate 1 UDAY DAILY PRN 12/10 2300 AC 12/11 TOP 0925 Hydralazine HCl 100 MG BID 12/12 1303 AC 12/14 PO 1056 Hydromorphone HCl 0.4 MG Q6P PRN 12/14 1045 AC 12/14 IV 1057 Hydromorphone HCl 0.2 MG ONCE ONE 12/14 0215 DC 12/14 IV 12/14 0216 0218 Hydromorphone HCl 0.4 MG Q4-6 PRN PRN 12/11 1515 DC 12/14 IV 0640 Labetalol HCl 300 MG BID 12/14 2200 AC PO Labetalol HCl 200 MG BID 12/13 2200 DC 12/13 PO 2120 Losartan Potassium 100 MG DAILY 12/13 1330 AC 12/14 PO 1056 Nifedipine 30 MG DAILY 12/14 1000 AC PO Ondansetron HCl 4 MG Q6PRN PRN 12/10 1730 AC 12/13 IV 1117 Polyethylene Glycol 17 GM DAILY 12/14 1214 AC PO Senna/Docusate Sodium 1 TAB BID PRN 12/14 1215 AC PO Results Last 48 Hrs of Labs/Mics: Laboratory Tests 12/14/16 0240: Troponin I 0.03 12/14/16 0240: Renin Pending 12/14/16 0240: Anion Gap 10, Estimated GFR 5 L, BUN/Creatinine Ratio 5.1 L, Phosphorus 4.5, Magnesium 1.7 12/13/16 1203: Urine Total Volume Cancelled, U Metanephrines 24 Hr Cancelled, U Normetanephrine 24h Cancelled, U Tot Metanephrine 24h Cancelled 12/13/16 1202: Urine Total Volume Cancelled, Ur Epinephrine 24 Hr Cancelled, U Norepinephrine 24 Hr Cancelled, Ur Dopamine 24 Hr Cancelled, U Tot Catecholamine 24h Cancelled, Urine Creatinine Cancelled 12/13/16 0525: Anion Gap 9, Estimated GFR 4 L, Glucose 77, Calcium 8.5, Phosphorus 4.7 H, Magnesium 1.6, Total Bilirubin 0.3, AST 13 L, ALT 29, Albumin 2.9 L Assessment/Plan Assessment/Plan Assessment: 1. Hypertensive Urgency, with blood pressure now under control 2. ESRD on PD 3. History of prior CVA 4. Diffuse atherosclerotic vascular disease. 5. Anemia 6. Atypical chest discomfort plan: * Continue current hypertension medications, including nifedipine, losartan, hydralazine, and labetalol * Dialysis as per renal Continue telemetry? Yes
[2016-12-14 16:00] VITALS: BP 130/74
[2016-12-15] VITALS: BP 168/84
[2016-12-15 03:00] VITALS: BP 144/78
--- NOTE | 2016-12-15 07:19 | PN- Housestaff ---
Subjective Follow-up For: hypertensive urgency Subjective: Patient seen and examined this morning. She was lying in bed in no acute distress. Blood pressure has been adequately controlled. Continues to have jaw pain, which is better as compared to when it started. No headache, fever, palpitation, no chest pain, no nausea, vomiting, abdominal pain, no constipation. Review of Systems Constitutional: Denies: chills, fever. Cardiovascular: Denies: chest pain, palpitations. Respiratory: Denies: cough, short of breath, sputum production. Gastrointestinal: Denies: abdominal pain, constipation, diarrhea, nausea, vomiting. Objective Last 24 Hrs of Vital Signs/I&O Vital Signs Date Time Temp Pulse Resp B/P Pulse O2 O2 Flow FiO2 Ox Delivery Rate 12/15 0300 144/78 12/15 0000 97.4 76 18 168/84 98 Room Air 12/14 2242 70 170/84 12/14 2242 70 170/84 12/14 1600 99.3 72 20 130/74 94 Room Air Intake & Output 12/15 1600 12/15 0800 12/15 0000 Intake Total 240 600 Output Total 600 700 Balance -360 -100 Intake, Oral 240 600 Output, 600 700 Dialysate Patient 79.435 kg Weight Physical Exam General Appearance: Alert, Oriented X3, Cooperative Cardiovascular: Regular Rate, Normal S1, Normal S2, No Murmurs Lungs: Clear to Auscultation Abdomen: Normal Bowel Sounds, Soft, No Tenderness Extremities: No Clubbing, No Cyanosis, b/l edema 1+ Current Medications: Current Medications Sig/Bryan Start time Last Medication Dose Route Stop Time Status Admin Acetaminophen 650 MG Q4P PRN 12/10 1930 AC PO Alprazolam 0.5 MG TID PRN 12/11 204 AC 12/14 PO 12/18 204 2241 Aspirin 81 MG DAILY 12/10 2148 AC 12/14 PO 1056 Benzocaine 1 UDAY Q6-PRN PRN 12/13 1915 AC TOP Gentamicin Sulfate 1 UDAY DAILY PRN 12/10 2300 AC 12/11 TOP 0925 Hydralazine HCl 100 MG BID 12/12 1303 AC 12/14 PO 2242 Hydromorphone HCl 0.4 MG Q6P PRN 12/14 1045 AC 12/15 IV 0436 Hydromorphone HCl 0.4 MG Q4-6 PRN PRN 12/11 1515 DC 12/14 IV 0640 Labetalol HCl 300 MG BID 12/14 2200 AC 12/14 PO 2242 Labetalol HCl 200 MG BID 12/13 2200 DC 12/13 PO 2120 Losartan Potassium 100 MG DAILY 12/13 1330 AC 12/14 PO 1056 Magnesium Oxide 400 MG BID 12/14 1700 DC 12/14 PO 12/14 2201 2242 Nifedipine 30 MG DAILY 12/14 1000 AC 12/14 PO 1447 Ondansetron HCl 4 MG .STK-MED ONE 12/14 1035 DC IM 12/14 1036 Ondansetron HCl 4 MG Q6PRN PRN 12/10 1730 AC 12/13 IV 1117 Polyethylene Glycol 17 GM DAILY 12/14 1214 AC PO Senna/Docusate Sodium 1 TAB BID PRN 12/14 1215 AC 12/14 PO 1447 Assessment/Plan Assessment: This is a 31-year-old female with past medical history of ESRD on peritoneal dialysis, uncontrolled hypertension with multiple admissions for hypertensive urgency and CVA, basal ganglia hemorrhage, recently admitted to [facility] for hypertensive urgency in September 2016, presents with severe headache associated with nausea and vomiting. Vitals upon presentation temperature 98.1, pulse 104, respiratory rate 18, blood pressure 198/100, 94, satting in mid 90s on room air. Pertinent labs WBC 12.2, H&H 11 and 33.4, platelets 345, creatinine 10.3, BUN 50 , Chest x-ray IMPRESSION: Interval resolution of the left-sided pleural effusion. Small right-sided pleural effusion is now visualized with some mild platelike right mid to lower lobe opacities suggesting atelectasis. Mild central pulmonary vascular prominence without overt edema. Mild cardiomegaly. ED course: Patient received IV hydralazine 20 mg and IV Lipitor 20 mg Nitropaste , the pressure further creeped up to 300/150. A decision was made to admit her to ICU for close monitoring of hypertensive emergency. We are currently managing the patient for chronic conditions: Hypertensive Urgency: Patient presented with blood pressure systolic ranging between 250 and 300MMHG. Keeping in mind patient has history of multiple ischemic strokes, we have been cautiously managing her blood pressure to prevent any further episodes of ischemic strokes . * Continuehydralazine 100MG twice a day, clonidine patch 0.2 mg, labetalol 200 mg BID as per cardiology recommendation with close blood pressure monitoring * Losartan 200 mg increased to 300 mg twice a day, as per nephro recommendation. * Blood pressure goal 150 systolic. * Follow up renin (lab has to approve, please confirm in am), nephro doesn't think renins or evaluation for large vessel renal artery stenosis would be fruitful at this juncture. Nephrectomies in ESRD have little impact on BP control. She is still volume overloaded and does not ultrafilter well, probably due to prior peritonitis. * Consider renal angiogram after premedication for contrast allergy : As per Dr. Lane, this will assess for a partially functioning kidney that is secreting too much renin. If present then cryoabliteration of the kidney may help her poorly controlled pressure. * Considered 24 hour urine catecholamine, metanephrine, but won't be a good test for her given she does not make urine. Headache: Likely secondary to dangerously elevated blood pressure, management as per pain pathway. End-stage renal disease on peritoneal dialysis: Nephrology on board, patient getting peritoneal dialysis regularly. We'll continue calcium carbonate 1250 mg twice a day Anemia : Likely secondary to end-stage renal disease, H&H 11.0(around baseline) and 33.7, holding off of Epogen for now. History of anxiety: We'll continue home dose of Xanax 0.5 mg daily. Diet: Renal dialysis DVT prophylaxis : Subcutaneous heparin Patient is full code Problem List: 1. Pleural effusion, left 2. Hypertensive urgency 3. End-stage renal disease on peritoneal dialysis Pain Ratin Pain Location: None Pain Goal: Remain pain free Pain Plan: Dilaudid Tomorrow's Labs & Rationales: ICU bundle for lites monitoring Consulting Request: Consulting Specialty: Nephrology Consulting Physician: Reason for Consult: Peritoneal Dialysis
[2016-12-15 08:00] VITALS: BP 132/82
--- NOTE | 2016-12-15 08:57 | Patient Discharge Instructions ---
Discharge Instructions General Discharge Information You were seen/treated for: Hypertensive Urgency ESRD on PD History of CVA Anemia Special Instructions: Please schedule a follow-up appointment with your primary care physician, registered nurse obstetrics, icer hand in 1 week upon discharge. Please ensure good complaints with your blood pressure medication and hemodialysis as instructed. Keep monitoring blood pressure frequently. Please seek emergency care in case of ongoing headache, elevated blood pressure, dizziness, chest pain, weakness or tingling in any part of her body. Diet Continue normal diet: Yes Recommended Diet: Heart Healthy Activity Activity Self Limited: Yes Acute Coronary Syndrome Inclusion Criteria At DC or during hospital stay patient has or had the following: ACS DIAGNOSIS No Discharge Core Measures Meds if any: Prescribed or Continued at Discharge Meds if any: NOT Prescribed or Continued at Discharge Congestive Heart Failure Inclusion Criteria At DC or during hospital stay patient has or had the following: CHF DIAGNOSIS No Discharge Core Measures Meds if any: Prescribed or Continued at Discharge Meds if any: NOT Prescribed or Continued at Discharge Cerebrovascular accident Inclusion Criteria At DC or during hospital stay patient has or had the following: CVA/TIA Diagnosis No Discharge Core Measures Meds if any: Prescribed or Continued at Discharge Meds if any: NOT Prescribed or Continued at Discharge Venous thromboembolism Inclusion Criteria VTE Diagnosis No VTE Type NONE VTE Confirmed by (Test) NONE Discharge Core Measures - Per Current guidelines, there needs to be overlap - treatment for the first 5 days of Warfarin therapy. - If discharged on Warfarin prior to 5 days of - overlap therapy, the patient will need to be - assessed for post discharge needs including - *Post discharge parental anticoagulation - *Warfarin and/or parental anticoagulation education - *Follow up date to check INR post discharge At least 5 days overlap therapy as Inpatient No Meds if any: Prescribed or Continued at Discharge Note: Overlap Therapy is Warfarin and Anticoagulant Meds if any: NOT Prescribed or Continued at Discharge
--- NOTE | 2016-12-15 09:12 | Transfer of Care Summary ---
Hospital Course Course Hospital Course: This is a 31-year-old female with past medical history of ESRD on peritoneal dialysis, uncontrolled hypertension with multiple admissions for hypertensive urgency and CVA, basal ganglia hemorrhage, recently admitted to [facility] for hypertensive urgency in September 2016, presents with severe headache associated with nausea and vomiting. Vitals upon presentation temperature 98.1, pulse 104, respiratory rate 18, blood pressure 198/100, 94, satting in mid 90s on room air. Pertinent labs WBC 12.2, H&H 11 and 33.4, platelets 345, creatinine 10.3, BUN 50 , Chest x-ray IMPRESSION: left-sided pleural effusion. Mild central pulmonary vascular prominence without overt edema. Mild cardiomegaly. ED course: Patient received IV hydralazine 20 mg and IV Lipitor 20 mg Nitropaste , the pressure further creeped up to 300/150. A decision was made to admit her to ICU for close monitoring of hypertensive emergency. We managed the patient for following conditions: Hypertensive Urgency: Resolved. Blood pressure systolic ranging between 130-140 systolic. Patient presented with blood pressure systolic ranging between 250 and 300MMHG. Keeping in mind patient has history of multiple ischemic strokes, we have been cautiously managing her blood pressure to prevent any further episodes of ischemic strokes . Blood pressure was monitored closely, bringing it down the more than 25%. She was later started on hydralazine 100MG twice a day, clonidine patch 0.2 mg, labetalol 200 mg BID>>300mg bid(12/14) * Cardiology on board, wanted patient to be evaluated for renal artery stenosis, Renin level is pending, please follow-up. Consider renal angiogram after premedication for contrast allergy As per cardiology, this will assess for a partially functioning kidney that is secreting too much renin. If present then cryoabliteration of the kidney may help her poorly controlled pressure. Consider 24 hour urine catecholamine, metanephrine, but won't be a good test for her given she does not make urine. Headache: Resolved. Likely secondary to dangerously elevated blood pressure, management as per pain pathway. End-stage renal disease on peritoneal dialysis: Nephrology on board, patient getting peritoneal dialysis regularly. We'll continue calcium carbonate 1250 mg twice a day Anemia : Likely secondary to end-stage renal disease, H&H 11.0(around baseline) and 33.7, holding off of Epogen for now. History of anxiety: We'll continue home dose of Xanax 0.5 mg daily. Diet: Renal dialysis DVT prophylaxis : Subcutaneous heparin Patient is full code Assessment/Plan: Please keep monitoring blood pressure closely. Please follow-up renin levels. Follow up cardiology and nephrology recommendations.
--- NOTE | 2016-12-15 11:39 | PN- Nephrology ---
Assessment/Plan Assessment: 1. 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 HTN: better control w meds & UF Suggestion: OK for discharge home Continue PD at home Change nifedipine --> amlodipine 10 mg qday (has at home) Continue labetolol 300 mg bid Hydralazine 100 mg bid - tid depending on BP Losartan 100 mg qday Catapress patch as outpt Subjective Subjective: Feeling better - no vomitng No SOB or CP today PD w/o problem --> UF 1.4 liter yesterday Objective Vital Signs and I&Os Vital Signs Date Time Temp Pulse Resp B/P Pulse O2 O2 Flow FiO2 Ox Delivery Rate 12/15 0800 97.8 77 22 132/82 98 Room Air 12/15 0300 144/78 12/15 0000 97.4 76 18 168/84 98 Room Air 12/14 2242 70 170/84 12/14 2242 70 170/84 12/14 1600 99.3 72 20 130/74 94 Room Air Intake & Output 12/15 1600 12/15 0400 12/14 1600 12/14 0400 12/13 1600 12/13 0400 Intake Total 355 525 1274 360 490 500 Output Total 969 429 6776 1900 200 700 Balance -360 -100 -2580 -1540 290 -200 Intake, 2000 Dialysate Intake, IV 20 20 Intake, Oral 240 600 700 360 490 480 Number 0 0 Bowel Movements Output, 174 323 1753 1900 200 700 Dialysate Output, Urine 0 Patient 175 lb 177 lb 174 lb Weight Physical Exam General Appearance: well developed/nourished, no apparent distress Head: atraumatic, normal appearance Ears, Nose, Throat: normal ENT inspection Neck: normal inspection Respiratory: normal breath sounds, no respiratory distress, quiet respiration Cardiovascular: regular rate/rhythm, friction rub (none) Abdomen: soft, non-tender, no organomegaly Extremities: no edema Neurologic/Psychiatric: no motor/sensory deficits, awake, alert, oriented x 3 Current Medications: Current Medications Sig/Bryan Start time Last Medication Dose Route Stop Time Status Admin Acetaminophen 650 MG Q4P PRN 12/10 1929 AC PO Alprazolam 0.5 MG TID PRN 12/11 2044 AC 12/14 PO 12/19 2043 224 Aspirin 81 MG DAILY 12/11 2147 AC 12/15 PO 104 Benzocaine 1 UDAY Q6-PRN PRN 12/13 1915 AC TOP Gentamicin Sulfate 1 UDAY DAILY PRN 12/10 2300 AC 12/11 TOP 0925 Hydralazine HCl 100 MG BID 12/12 1303 AC 12/15 PO 1042 Hydromorphone HCl 0.4 MG Q6P PRN 12/14 1045 AC 12/15 IV 1045 Labetalol HCl 300 MG BID 12/14 2200 AC 12/15 PO 1043 Losartan Potassium 100 MG DAILY 12/13 1330 AC 12/15 PO 1042 Magnesium Oxide 400 MG BID 12/14 1700 DC 12/14 PO 12/14 2201 2242 Nifedipine 30 MG DAILY 12/14 1000 AC 12/15 PO 1042 Ondansetron HCl 4 MG Q6PRN PRN 12/10 1730 AC 12/15 IV 0930 Polyethylene Glycol 17 GM DAILY 12/14 1214 AC 12/15 PO 1041 Senna/Docusate Sodium 1 TAB BID PRN 12/14 1215 AC 12/15 PO 1041 Results Pertinent Lab Results: Laboratory Tests 12/14 12/14 12/14 12/13 12/13 0240 0240 0240 1203 1202 Chemistry Sodium (137 - 145 mmol/L) 134 L Potassium (3.5 - 5.1 mmol/L) 4.8 Chloride (98 - 107 mmol/L) 95 L Carbon Dioxide (22 - 30 mmol/L) 29 Anion Gap (5 - 16) 10 BUN (7 - 17 mg/dL) 52 H Creatinine (0.5 - 1.0 mg/dL) 10.1 *H Estimated GFR (>60 ml/min) 5 L BUN/Creatinine Ratio (7 - 25 %) 5.1 L Phosphorus (2.5 - 4.5 mg/dL) 4.5 Magnesium (1.6 - 2.3 mg/dL) 1.7 Troponin I (< 0.11 ng/ml) 0.03 Renin Pending Urines Urine Total Volume Cancelled Ur Epinephrine 24 Hr Cancelled U Norepinephrine 24 Hr Cancelled Urine Total Volume Cancelled U Metanephrines 24 Hr Cancelled U Normetanephrine 24h Cancelled U Tot Metanephrine 24h Cancelled Ur Dopamine 24 Hr Cancelled U Tot Catecholamine 24h Cancelled Urine Creatinine Cancelled 12/13 0525 Chemistry Sodium (137 - 145 mmol/L) 132 L Potassium (3.5 - 5.1 mmol/L) 4.7 Chloride (98 - 107 mmol/L) 93 L Carbon Dioxide (22 - 30 mmol/L) 30 Anion Gap (5 - 16) 9 BUN (7 - 17 mg/dL) 52 H Creatinine (0.5 - 1.0 mg/dL) 10.7 *H Estimated GFR (>60 ml/min) 4 L Glucose (65 - 99 mg/dL) 77 Calcium (8.4 - 10.2 mg/dL) 8.5 Phosphorus (2.5 - 4.5 mg/dL) 4.7 H Magnesium (1.6 - 2.3 mg/dL) 1.6 Total Bilirubin (0.2 - 1.3 mg/dL) 0.3 AST (14 - 36 U/L) 13 L ALT (9 - 52 U/L) 29 Albumin (3.5 - 5.0 g/dL) 2.9 L
[2016-12-15] MEDS ORDERED: LABETALOL HCL100 M1 PO ×3 (11:43→12:08)
--- NOTE | 2016-12-15 12:03 | PN- Cardiology ---
Subjective Subjective: The patient reports that she is feeling well. No chest pain. There are jaw pain has resolved. No shortness of breath. No diaphoresis. No palpitations. No nausea or vomiting. Objective Vital Signs and I&Os Vital Signs Date Time Temp Pulse Resp B/P Pulse O2 O2 Flow FiO2 Ox Delivery Rate 12/15 08 97.8 77 22 132/82 98 Room Air 12/15 0300 144/78 12/15 0000 97.4 76 18 168/84 98 Room Air 12/14 2242 70 170/84 12/14 2242 70 170/84 12/14 1600 99.3 72 20 130/74 94 Room Air Intake & Output 12/15 1600 12/15 0800 12/15 0000 12/14 1600 12/14 0800 12/14 0000 Intake Total 304 100 1963 100 360 Output Total 258 496 4516 3750 Balance -360 -100 -830 -3650 360 Intake, 2000 Dialysate Intake, IV 20 Intake, Oral 240 600 600 100 360 Number 0 0 Bowel Movements Output, 819 850 1370 3750 Dialysate Patient 175 lb 177 lb Weight Physical Exam: Gen: The patient is in no acute distress HEENT: Normal nose, ears, and oropharynx. Pupils equal bilaterally. Conjunctiva normal. Neck: Supple with no JVD, no masses, and no thyromegaly Lungs: Clear to auscultation with normal respiratory effort Heart: RRR, S1, S2,1/6 systolic murmur. No peripheral edema, 2+ pulses in the lower extremities bilaterally Abdomen: Soft, nontender, no masses. No hepatomegaly. No splenomegaly Extremities: No clubbing or cyanosis. Normal muscle strength in the upper and lower extremities Skin: Normal skin turgor with no skin ulcers or lesions noted. Current Medications: Current Medications Sig/Bryan Start time Last Medication Dose Route Stop Time Status Admin Acetaminophen 650 MG Q4P PRN 12/10 1930 AC PO Alprazolam 0.5 MG TID PRN 12/11 2044 AC 12/14 PO 12/19 2043 224 Aspirin 81 MG DAILY 12/10 2148 AC 12/15 PO 1042 Benzocaine 1 UDAY Q6-PRN PRN 12/13 1915 AC TOP Gentamicin Sulfate 1 UDAY DAILY PRN 12/10 2300 AC 12/11 TOP 0925 Hydralazine HCl 100 MG BID 12/12 1303 AC 12/15 PO 1042 Hydromorphone HCl 0.4 MG Q6P PRN 12/14 1045 AC 12/15 IV 1045 Labetalol HCl 300 MG BID 12/14 2200 AC 12/15 PO 1043 Losartan Potassium 100 MG DAILY 12/13 1330 AC 12/15 PO 1042 Magnesium Oxide 400 MG BID 12/14 1700 DC 12/14 PO 12/14 220 2242 Nifedipine 30 MG DAILY 12/14 1000 AC 12/15 PO 1042 Ondansetron HCl 4 MG Q6PRN PRN 12/10 1730 AC 12/15 IV 0930 Polyethylene Glycol 17 GM DAILY 12/14 1214 AC 12/15 PO 1041 Senna/Docusate Sodium 1 TAB BID PRN 12/14 1215 AC 12/15 PO 1041 Results Last 48 Hrs of Labs/Mics: Laboratory Tests 12/14/16 0240: Troponin I 0.03 12/14/16 0240: Renin Pending 12/14/16 0240: Anion Gap 10, Estimated GFR 5 L, BUN/Creatinine Ratio 5.1 L, Phosphorus 4.5, Magnesium 1.7 12/13/16 1203: Urine Total Volume Cancelled, U Metanephrines 24 Hr Cancelled, U Normetanephrine 24h Cancelled, U Tot Metanephrine 24h Cancelled Recent Imaging Studies: Chest x-ray 12/14/16: Stably enlarged cardiomediastinal silhouette. Mild pulmonary vascular congestion. Assessment/Plan Assessment/Plan Assessment: 1. Hypertensive Urgency, with blood pressure now under control 2. ESRD on PD 3. History of prior CVA 4. Diffuse atherosclerotic vascular disease. 5. Anemia 6. Atypical chest discomfort plan: * Continue current hypertension medications, including nifedipine, losartan, hydralazine, and labetalol * Dialysis as per renal * Discharge to home. * Follow up with Dr. Mariee in one week. Continue telemetry? No
--- NOTE | 2016-12-15 12:15 | Discharge Summary ---
Visit Information Visit Dates Admission Date: 12/10/16 Discharge Date: 12/15/16 Hospital Course Course Attending Physician: DANDRE CANTOR MD Primary Care Physician: CLARA ANGEL MD Consulting Request: Consulting Specialty: Nephrology Consulting Physician: Reason for Consult: Peritoneal Dialysis Hospital Course: This is a 31-year-old female with past medical history of ESRD on peritoneal dialysis, uncontrolled hypertension with multiple admissions for hypertensive urgency and CVA, basal ganglia hemorrhage, recently admitted to [facility] for hypertensive urgency in September 2016, presents with severe headache associated with nausea and vomiting. Vitals upon presentation temperature 98.1, pulse 104, respiratory rate 18, blood pressure 198/100, 94, satting in mid 90s on room air. Pertinent labs WBC 12.2, H&H 11 and 33.4, platelets 345, creatinine 10.3, BUN 50 , Chest x-ray IMPRESSION: left-sided pleural effusion. Mild central pulmonary vascular prominence without overt edema. Mild cardiomegaly. ED course: Patient received IV hydralazine 20 mg and IV Lipitor 20 mg Nitropaste , the pressure further creeped up to 300/150. A decision was made to admit her to ICU for close monitoring of hypertensive emergency. We managed the patient for following conditions: Hypertensive Urgency: Patient presented with blood pressure systolic ranging between 250 and 300MMHG. Keeping in mind patient has history of multiple ischemic strokes, we cautiously managed her blood pressure to prevent any further episodes of ischemic strokes . Blood pressure was monitored closely, bringing it down the more than 25%. She was later started on hydralazine 100MG twice a day, clonidine patch 0.2 mg, labetalol 200 mg BID>>300mg bid. Over the course of days her pressure improved, she was advised to follow-up with Dr. Mariee upon discharge. End-stage renal disease on peritoneal dialysis: Patient has end stage renal disease and is on her toenail dialysis, which was continued upon her hospital stay. Nephrology was on board. Anemia : Likely secondary to end-stage renal disease, H&H low but stable 11.0(around baseline) and 33.7. No active medical bleeding reported during the stay. History of anxiety: We cont home dose of Xanax 0.5 mg daily. Diet: Renal dialysis DVT prophylaxis : Subcutaneous heparin Complications: none Allergies: Coded Allergies: Iodinated Contrast Media - Oral and (Intermediate, HIVES AND SWELLING 12/21/16) morphine (Intermediate, HIVES 12/21/16) Penicillins (RASH 12/21/16) hydroxyzine (PER PT UNKNOWN 12/21/16) lisinopril (ANGIODEMA 12/21/16) LEIDA Inhibitors (ANGIODEMA 12/21/16) Disposition Summary Disposition Principal Diagnosis: Hypertensive Urgency Additional Diagnosis: ESRD on peritoneal dialysis Discharge Disposition: home or self care Discharge Instructions General Discharge Information Code Status: Full Code Patient's Diet: Renal dialysis Patient's Activity: as tolerated Follow-Up Instructions/Appts: A #twice follow-up with Dr. Mariee in 1 week upon discharge. Also advised to be compliant with her medication and peritoneal dialysis. Medications at Discharge Discharge Medications: Stop taking the following medications: Labetalol HCl (Labetalol HCl) 200 MG TABLET ORAL THREE TIMES DAILY Continue taking these medications: Amlodipine Besylate (Amlodipine Besylate) 10 MG TABLET 1 Tablet ORAL DAILY Comments: Last Taken: 12/15/16 Time: 1000 Epoetin Carlos (Epogen) 10,000 UNIT/ML VIAL 10,000 Unit Inject into fatty tissue EVERY 2 WEEKS Comments: NOT GIVEN IN HOSPITAL Losartan (Cozaar) 100 MG TABLET 1 Tablet ORAL DAILY Comments: Last Taken: 12/15/16 Time: 1000 Calcium Carbonate (Calcium Carbonate) 500 MG/5 ML ORAL.SUSP 20 Milliliters ORAL TWICE DAILY Qty = 500 Comments: Last Taken: NOT GIVEN IN HOSPITAL Time: Alprazolam (Xanax) 0.5 MG TABLET 1 Tablet ORAL DAILY NEEDED as needed for ANXIETY Comments: Last Taken: 12/14/16 Time: Aspirin (Aspirin*) 81 MG TAB.CHEW 81 Milligram ORAL DAILY Qty = 60 Comments: Last Taken: 12/15/16 Time: 1000 Hydralazine HCl (Hydralazine HCl) 100 MG TABLET 1 Half Tablet ORAL THREE TIMES DAILY Comments: Last Taken: 12/15/16 Time: 1000 Ondansetron HCl (Zofran) 4 MG TABLET 1 Tablet ORAL Every 6-8 Hours as Needed as needed for NAUSEA Comments: Last Taken: 12/15/16 Time: 0930 Clonidine (Clonidine) 0.2 MG/24 HOUR PATCH.TDWK 1 Patch On the skin EVERY WEDNESDAY Qty = 4 Comments: NOT GIVEN IN HOSPITAL Epoetin Carlos (Epogen) 2,000 UNIT/ML VIAL 2,000 Units Inject into fatty tissue EVERYOTHER W Comments: Last Taken: NOT GIVEN IN HOSPITAL Time: Start taking the following new medications: Labetalol HCl (Labetalol HCl) 100 MG TABLET 3 Tablet ORAL TWICE DAILY Qty = 30 No Refills Comments: Last Taken: 12/15/16 Time: 1000 Copies To: DANDRE CANTOR MD
== END 2016-12-15 12:30 | DRG 199 ==
LOC: ENRESERVTM → ENRESERVDT → ERH 10:42 → CRI 15:30 → ERHI 15:30 → CRI 15:30
PROVIDERS: Physician Assistant Surgical; Student in an Organized Health Care Education/Training Program; ADMIT Hospitalist
PROC: 3E1M39Z Irrigation of Peritoneal Cavity using Dialysate, Percutaneous Approach (ICD-10-PCS; principal; 2016-12-11)
DX: I16.1 Hypertensive emergency (principal); N18.6 End stage renal disease; J90 Pleural effusion, not elsewhere classified; N25.81 Secondary hyperparathyroidism of renal origin; E78.5 Hyperlipidemia, unspecified; I12.0 Hypertensive chronic kidney disease with stage 5 chronic kidney disease or end stage renal disease; Z87.891 Personal history of nicotine dependence; Z86.73 Personal history of transient ischemic attack (TIA), and cerebral infarction without residual deficits; D63.1 Anemia in chronic kidney disease; F41.9 Anxiety disorder, unspecified; K42.9 Umbilical hernia without obstruction or gangrene; I70.90 Unspecified atherosclerosis
CPT/HCPCS: CCU; 36415; 82436; 93005; 93010; J0360; J1170; J2405; J2550; J3490; J7040

== ENCOUNTER 2016-12-19 15:23 | Emergency (ER) | payer OTHER ==
[~2016-12-19] VITALS: Ht 154.9 cm; Wt 72.6 kg
[~2016-12-19 15:23] MED LIST changes: +EPOGEN2000 UNIT/ SC; +LABETALOL HCL100 M1 PO
--- NOTE | 2016-12-19 16:17 | ED GI/GU/ABDOMINAL COMPLAINT ---
History of Present Illness General Chief Complaint: General Adult Stated Complaint: PT HAS POSSIBLE GI BLEED Source: patient, family, old records Exam Limitations: no limitations Vital Signs & Intake/Output Vital Signs & Intake/Output Vital Signs Date Time Temp Pulse Resp B/P Pulse O2 O2 Flow FiO2 Ox Delivery Rate 12/19 1950 97.4 84 20 170/88 96 Room Air 12/19 174 97.1 94 20 230/130 12/19 1747 97.1 94 20 230/130 12/19 1741 97.1 94 20 230/130 94 Room Air 12/19 1704 96 Room Air 12/19 1535 98.4 91 18 200/130 96 Room Air Allergies Coded Allergies: Iodinated Contrast Media - Oral and (Intermediate, HIVES AND SWELLING 09/20/16) Penicillins (RASH 09/20/16) hydroxyzine (PER PT UNKNOWN 09/20/16) lisinopril (ANGIODEMA 09/20/16) LEIDA Inhibitors (ANGIODEMA 09/20/16) Reconcile Medications Alprazolam (Xanax) 0.5 MG TABLET 1 TAB PO DAILY NEEDED PRN ANXIETY ( Reported) Amlodipine Besylate 10 MG TABLET 1 TAB PO DAILY BP (Reported) Aspirin (Aspirin*) 81 MG TAB.CHEW 81 MG PO DAILY heart health Calcium Carbonate 500 MG/5 ML ORAL.SUSP 20 ML PO BID SUPPLEMENT (Reported) Clonidine 0.2 MG/24 HOUR PATCH.TDWK 1 PAT TOP QWED BP (Reported) Epoetin Carlos (Epogen) 10,000 UNIT/ML VIAL 10,000 UNIT SC Q2W ANEMIA (Reported ) Epoetin Carlos (Epogen) 2,000 UNIT/ML VIAL 2,000 U SC EVERYOTHER W anemia ( Reported) Hydralazine HCl 100 MG TABLET 1 HTAB PO TID HTN (Reported) Labetalol HCl 100 MG TABLET 3 TAB PO BID Hypertension Losartan (Cozaar) 100 MG TABLET 1 TAB PO DAILY HEART (Reported) Ondansetron HCl (Zofran) 4 MG TABLET 1 TAB PO Q6-8P PRN NAUSEA (Reported) Triage Note: PT TO TRIAGE WITH C/O BLOOD IN PERITONEAL FLUID S/P PERITONEAL DIALYSIS LAST NIGHT, 1 EPISODE OF VOMITING W/BLOOD, ABD PAIN 05/06. BP 200/130 IN TRIAGE. PT DENIES CHEST PAIN, DENIES SOB. Triage Nurses Notes Reviewed? yes ? N Is pt currently ? No HPI: Patient was recently discharged from the hospital after admission for hypertensive urgency. Patient woke up this morning and empty her peritoneal desolate and noticed that it was bloody. Patient then became nauseous and vomited once and noticed that there was a light red color to her vomitus. Patient called the dialysis nurse who asked her to come into the clinic. Patient went to the clinic and the nurse put some new desolate in and then removed it and it was clear. Patient was given Vanco just case there was an infection. Patient was sent home from the clinic. When the patient got home she felt like she had to move her bowels and states that all it came out were blood clots. Patient then began to experience crampy diffuse abdominal pain. The pain is constant. There are no aggravating or mitigating factors. There is no radiation. The pain is 10 out of 10. Patient had a subsequent bowel movement with again blood clots. Patient comes in for evaluation. (IRIS COTA,JAREK Mccann) Past History Travel History Traveled to [place] past 21 day No Medical History Any Pertinent Medical History? 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 Hemorrhagic stroke in September 2013 at [facility]. In February 2013, a right basal ganglia hemorrhagic CVA. In 2012, she had been transferred to [place] and ultimately to [facility]. EENT: NONE Cardiovascular: hypertension, hyperlipidemia, mitral regurgitation, LVH Respiratory: pneumonia Gastrointestinal: L ABD PERTINEAL PORT UMBILICAL HERNIA Hepatic: NONE Renal: end-stage renal disease on home PERITONEAL dialysis Musculoskeletal: sciatica Psychiatric: anxiety Endocrine: hyperparathyroidism (secondary) Blood Disorders: NONE (due to kidney failure), anemia Cancer(s): NONE MATTRESS SPECIALIST/Reproductive: NONE Other Medical Hx: Obesity Eczema Catheter associated bacteremia with MRSA in September 2014 MRSA peritonitis/Sepsis History of Non-compliance with Meds and dialysis History of MRSA: No History of VRE: No History of CDIFF: No Influenza Vaccine: 06/23/16 Surgical History Surgical History: , umbilical hernia repair tenckhof placement [place] CATH PLACEMENT AND REMOVAL placement of the peritoneal dialysis catheter parathyroidectomy Psychosocial History Who do you live with Spouse Services at Home None What is your primary language Maldivian Tobacco Use: Current Daily Use Daily Tobacco Use Amount/Type: => 5 Cigarettes daily ETOH Use: denies use Illicit Drug Use: denies illicit drug use Family History Family History, If Any: FATHER FH: CAD (coronary artery disease) FH: diabetes mellitus FH: stroke grandmother FH: colon cancer Hx Contributory? No (IRIS COTA,JAREK Mccann) Review of Systems Review of Systems Constitutional: Reports: no symptoms. EENTM: Reports: no symptoms. Respiratory: Reports: no symptoms. Cardiovascular: Reports: no symptoms. GI: Reports: see HPI, abdominal pain, bloody stool, vomiting. Genitourinary: Reports: no symptoms. Musculoskeletal: Reports: no symptoms. Skin: Reports: no symptoms. Neurological/Psychological: Reports: no symptoms. Hematologic/Endocrine: Reports: no symptoms. Immunologic/Allergic: Reports: no symptoms. All Other Systems: Reviewed and Negative (IRIS COTA,JAREK Mccann) Physical Exam Physical Exam General Appearance: well developed/nourished, alert, awake, moderate distress Head: atraumatic Eyes: Bilateral: PERRL, EOMI, other (PINK CONJUNCTIVA). Ears, Nose, Throat, Mouth: hearing grossly normal, moist mucous membrane Neck: normal inspection, supple, full range of motion Respiratory: normal breath sounds, chest non-tender, no respiratory distress, lungs clear Cardiovascular: regular rate/rhythm, normal peripheral pulses Gastrointestinal: normal bowel sounds, soft, non-tender, no organomegaly, NO TENDERNESS, REBOUND OR GUARDING. nO PERITONEAL SIGNS Back: normal inspection Extremities: normal range of motion Neurologic/Psych: no motor/sensory deficits, awake, alert, oriented x 3, normal mood/affect Skin: intact, normal color, warm/dry Comments: Patient refused the rectal exam stating that she is going to need to move her bowels in a little while and we can look at it then. Core Measures ACS in differential dx? No Severe Sepsis Present: No Septic Shock Present: No (IRIS COTA,JAREK Mccann) Progress Differential Diagnosis: biliary colic, bowel obstruction, diverticulitis, gastritis, hepatitis, ischemic bowel, inflamm bowel dis, pancreatitis, peptic ulcer, PUD/GERD Plan of Care: Orders Procedure Date/time Status CBC WITHOUT DIFFERENTIAL 12/19 2199 Complete LIPASE 12/19 1609 Complete HUMAN BETA HCG SCREEN 12/19 1609 Complete COMPREHENSIVE METABOLIC PANEL 12/19 161 Complete CBC WITHOUT DIFFERENTIAL 12/19 161 Complete TYPE & SCREEN (NOT X-MATCH) 12/19 161 Complete Laboratory Tests 12/19/169: CBC w Diff NO MAN DIFF REQ, RBC 2.82 L, MCV 89.0, MCH 29.1, RDW 19.5 H, MPV 7.9, Gran % 67.9, Lymphocytes % 20.5, Monocytes % 5.6, Eosinophils % 5.5 H, Basophils % 0.5, Absolute Granulocytes 6.2, Absolute Lymphocytes 1.9, Absolute Monocytes 0.5, Absolute Eosinophils 0.5, Absolute Basophils 0, PUBS MCHC 32.7 L 12/19/16 1645: Anion Gap 11, Estimated GFR 5 L, BUN/Creatinine Ratio 6.0 L, Glucose 101 H, Calcium 8.5, Total Bilirubin 0.3, AST 13 L, ALT 34, Alkaline Phosphatase 89, Total Protein 5.5 L, Albumin 2.9 L, Globulin 2.6, Albumin/Globulin Ratio 1.1, Lipase 55, Total Beta HCG NEGATIVE, CBC w Diff NO MAN DIFF REQ, RBC 2.40 L, MCV 89.0, MCH 28.5, RDW 19.5 H, MPV 8.1, Gran % 68.3, Lymphocytes % 20.1 L, Monocytes % 7.7, Eosinophils % 3.7, Basophils % 0.2, Absolute Granulocytes 6.1, Absolute Lymphocytes 1.8, Absolute Monocytes 0.7 H, Absolute Eosinophils 0.3, Absolute Basophils 0, PUBS MCHC 32.0 L Diagnostic Imaging: Viewed by Me: CT Scan. Discussed w/RAD: CT Scan. Radiology Impression: PATIENT: TERI BORRERO PRESENT AGE: 31 PATIENT ACCOUNT NO: [id number] : 87 LOCATION: [facility] ORDERING PHYSICIAN: JAREK SIMMONS MD SERVICE DATE: 12/19/16 EXAM TYPE: CAT - CT ABD & PELVIS W/O IV CONTRAS EXAMINATION: CT ABDOMEN AND PELVIS WITHOUT CONTRAST CLINICAL INFORMATION: Right-sided abdominal pain. Bright red blood per rectum. Ischemia. COMPARISON: Multiple priors, most recent CT abdomen/ pelvis dated 07/15/[address] chest dated 11/10/2016. TECHNIQUE: Multidetector volumetric imaging was performed from the superior aspect of the liver through the pubic symphysis. Sagittal and coronal reformatted images were obtained on the technologist's workstation. DLP: 301.66 mGy-cm. FINDINGS: LUNG BASES: There is a small left pleural effusion, decreased in size when compared to the prior examination. LIVER, GALLBLADDER, AND BILIARY TREE: The liver is normal in size, shape, and attenuation. No focal hepatic lesion or biliary ductal dilatation is present. The gallbladder is unremarkable with no evidence of radiopaque gallstones, gallbladder wall thickening, or obvious pericholecystic inflammatory changes. PANCREAS: Unremarkable. SPLEEN: Multiple soft tissue nodules are redemonstrated adjacent to the spleen, unchanged and likely representing splenules. There are atherosclerotic calcifications within the spleen. ADRENAL GLANDS: Unremarkable. KIDNEYS AND URETERS: The kidneys are again noted to be severely atrophic. There are bilateral hypodense exophytic structures which have increased in size since the prior examination. These could represent cysts, however renal ultrasound is recommended to help further characterize. BLADDER: Poorly visualized secondary to the surrounding ascites, which could be secondary to nondistention. GASTROINTESTINAL TRACT: There is moderate intra-abdominal and perihepatic ascites, which is not seen on the prior chest CT but was seen to a lesser extent on the abdominal and pelvic CT dated 07/15/2016. The ascites measures 8 Hounsfield units, consistent with simple fluid. A peritoneal drain is redemonstrated within the left lower abdomen with its tip terminating in the right pelvis. There is no intra-abdominal free air. There is no large or small bowel obstruction. The appendix is not identified. ABDOMINAL WALL: A fat- containing periumbilical hernia is redemonstrated. There is extension of the intra-abdominal ascites into the hernia. LYMPH NODES: Limited evaluation without IV contrast. VASCULAR: There are scattered atherosclerotic calcifications throughout the abdominal aorta and its branch vessels. The IVC is unremarkable. PELVIC VISCERA: The uterus and adnexa are unremarkable. OSSEOUS STRUCTURES: Bilateral sacroiliac periarticular erosions are noted within the iliac bones, left greater than right. These findings are not significantly changed since the prior exam dated 07/15/2016. IMPRESSION: 1. Moderate simple abdominal ascites, new since the prior chest CT dated 11/10/2016 and increased since the abdominal/ pelvis CT dated 07/15/2016. 2. The kidneys are again noted to be severely atrophic. Bilateral hyperdense exophytic lesions which have increased in size since the prior examination. These could represent cysts, however renal ultrasound is recommended to help further characterize. 3. No large or small bowel obstruction. The appendix is not visualized. 4. Redemonstration of a fat- containing periumbilical hernia. Intra-abdominal ascites extends into the hernia. 5. Bilateral iliac erosions, adjacent to the sacroiliac joint, left greater than right. DICTATED BY: BERNADETTE BOB MD DATE/TIME DICTATED:12/19/161839 HEALTHCARE ASSOCIATE:KANDICE DATE/TIME TRANSCRIBED:12/19/161839 CONFIDENTIAL, DO NOT COPY WITHOUT APPROPRIATE AUTHORIZATION. <Electronically signed in Other Vendor System> SIGNED BY: BERNADETTE BOB MD 12/19/161910 Initial ED EKG: none Hand-Off Endorsed To: RENE RODRIGUEZ MD Endorsed Time: 1918 Pending: labs (JAREK SIMMONS MD) Comments: Repeat hgb 25.1. Patient unable to stool. BP better, she feels better. (RENE RODRIGUEZ MD) Departure Departure Condition: Stable (JAREK SIMMONS MD) Departure Time of Disposition: 2137 Disposition: HOME OR SELF CARE Clinical Impression Primary Impression: LGI bleed Secondary Impressions: ESRD on peritoneal dialysis Referrals: MELVIN KEARNS MD Call for GI follow up. CLARA ANGEL MD (PCP/Family) Departure Forms: General Discharge Information (RENE RODRIGUEZ MD)
[2016-12-19 16:56] LABS: ABSOLUTE BASOPHIL COUNT 0 /CUMM (0.0-0.2); ABSOLUTE EOSINOPHIL COUNT 0.3 /CUMM (0.0-0.7); ABSOLUTE GRANULOCYTE CT 6.1 /CUMM (1.4-6.5); ABSOLUTE LYMPH COUNT 1.8 /CUMM (1.2-3.4); ABSOLUTE MONOCYTE COUNT 0.7 /CUMM (0.10-0.60); BASOPHIL % 0.2 % (0.0-2.0); EOSINOPHIL % 3.7 % (0-5); GRANULOCYTE % 68.3 % (42.2-75.2); HEMATOCRIT 21.3 % (37-47); MEAN CORPUSCULAR HGB 28.5 PG (27.0-31.0); MEAN PLATELET VOLUME 8.1 FL (7.4-10.4); PLATELET COUNT 268 /CUMM (130-400); RBC DISTRIBUTION WIDTH 19.5 % (11.5-14.5)
--- NOTE | 2016-12-19 19:11 | CT SCAN REPORT ---
EXAMINATION: CT ABDOMEN AND PELVIS WITHOUT CONTRAST CLINICAL INFORMATION: Right-sided abdominal pain. Bright red blood per rectum. Ischemia. COMPARISON: Multiple priors, most recent CT abdomen/pelvis dated 07/15/[address] chest dated 11/10/2016. TECHNIQUE: Multidetector volumetric imaging was performed from the superior aspect of the liver through the pubic symphysis. Sagittal and coronal reformatted images were obtained on the technologist's workstation. DLP: 301.66 mGy-cm. FINDINGS: LUNG BASES: There is a small left pleural effusion, decreased in size when compared to the prior examination. LIVER, GALLBLADDER, AND BILIARY TREE: The liver is normal in size, shape, and attenuation. No focal hepatic lesion or biliary ductal dilatation is present. The gallbladder is unremarkable with no evidence of radiopaque gallstones, gallbladder wall thickening, or obvious pericholecystic inflammatory changes. PANCREAS: Unremarkable. SPLEEN: Multiple soft tissue nodules are redemonstrated adjacent to the spleen, unchanged and likely representing splenules. There are atherosclerotic calcifications within the spleen. ADRENAL GLANDS: Unremarkable. KIDNEYS AND URETERS: The kidneys are again noted to be severely atrophic. There are bilateral hypodense exophytic structures which have increased in size since the prior examination. These could represent cysts, however renal ultrasound is recommended to help further characterize. BLADDER: Poorly visualized secondary to the surrounding ascites, which could be secondary to nondistention. GASTROINTESTINAL TRACT: There is moderate intra-abdominal and perihepatic ascites, which is not seen on the prior chest CT but was seen to a lesser extent on the abdominal and pelvic CT dated 07/15/2016. The ascites measures 8 Hounsfield units, consistent with simple fluid. A peritoneal drain is redemonstrated within the left lower abdomen with its tip terminating in the right pelvis. There is no intra-abdominal free air. There is no large or small bowel obstruction. The appendix is not identified. ABDOMINAL WALL: A fat-containing periumbilical hernia is redemonstrated. There is extension of the intra-abdominal ascites into the hernia. LYMPH NODES: Limited evaluation without IV contrast. VASCULAR: There are scattered atherosclerotic calcifications throughout the abdominal aorta and its branch vessels. The IVC is unremarkable. PELVIC VISCERA: The uterus and adnexa are unremarkable. OSSEOUS STRUCTURES: Bilateral sacroiliac periarticular erosions are noted within the iliac bones, left greater than right. These findings are not significantly changed since the prior exam dated 07/15/2016. IMPRESSION: 1. Moderate simple abdominal ascites, new since the prior chest CT dated 11/10/2016 and increased since the abdominal/pelvis CT dated 07/15/2016. 2. The kidneys are again noted to be severely atrophic. Bilateral hyperdense exophytic lesions which have increased in size since the prior examination. These could represent cysts, however renal ultrasound is recommended to help further characterize. 3. No large or small bowel obstruction. The appendix is not visualized. 4. Redemonstration of a fat-containing periumbilical hernia. Intra-abdominal ascites extends into the hernia. 5. Bilateral iliac erosions, adjacent to the sacroiliac joint, left greater than right.
[2016-12-19 21:26] LABS: ABSOLUTE BASOPHIL COUNT 0 /CUMM (0.0-0.2); ABSOLUTE EOSINOPHIL COUNT 0.5 /CUMM (0.0-0.7); ABSOLUTE GRANULOCYTE CT 6.2 /CUMM (1.4-6.5); ABSOLUTE LYMPH COUNT 1.9 /CUMM (1.2-3.4); ABSOLUTE MONOCYTE COUNT 0.5 /CUMM (0.10-0.60); BASOPHIL % 0.5 % (0.0-2.0); EOSINOPHIL % 5.5 % (0-5); GRANULOCYTE % 67.9 % (42.2-75.2); HEMATOCRIT 25.1 % (37-47); MEAN CORPUSCULAR HGB 29.1 PG (27.0-31.0); MEAN CORPUSCULAR HGB CONC 32.7 G/DL (33.0-37.0); MEAN PLATELET VOLUME 7.9 FL (7.4-10.4); PLATELET COUNT 300 /CUMM (130-400); RBC DISTRIBUTION WIDTH 19.5 % (11.5-14.5); RED BLOOD CELL CT 2.82 /CUMM (4.20-5.40); WHITE BLOOD CELL COUNT 9.1 /CUMM (4.8-10.8)
[2016-12-19 21:41] VITALS: BP 133/86
[2016-12-19] MEDS ORDERED: ULTRAM50 M1 PO (21:45)
[2016-12-19] MEDS ORDERED: LEVSIN-SL0.125 MG SL (21:45)
== END 2016-12-19 21:50 ==
LOC: ERH 15:23
PROVIDERS: Emergency Medicine
DX: K92.9 Disease of digestive system, unspecified (principal); N18.6 End stage renal disease; Z99.2 Dependence on renal dialysis; R10.9 Unspecified abdominal pain; I10 Essential (primary) hypertension; Z72.0 Tobacco use
CPT/HCPCS: 74176; 96374; 96375; 96376; J1200; J2405

== ENCOUNTER 2016-12-21 13:29 | Observation (INO) | payer OTHER ==
[~2016-12-21] VITALS: Ht 154.9 cm; Wt 72.7 kg
[~2016-12-21 13:29] MED LIST changes: +LEVSIN-SL0.125 MG SL; +ULTRAM50 M1 PO
--- NOTE | 2016-12-21 15:05 | ED GI/GU/ABDOMINAL COMPLAINT ---
See Addendum History of Present Illness General Chief Complaint: General Adult Stated Complaint: "DIALYSIS SENT ME IN" Source: patient, family, old records Exam Limitations: no limitations Vital Signs & Intake/Output Vital Signs & Intake/Output Vital Signs Date Time Temp Pulse Resp B/P Pulse O2 O2 Flow FiO2 Ox Delivery Rate 12/21 1433 96 12/21 1342 98.6 80 20 162/81 96 Room Air Allergies Coded Allergies: Iodinated Contrast Media - Oral and (Intermediate, HIVES AND SWELLING 12/21/16) morphine (Intermediate, HIVES 12/21/16) Penicillins (RASH 12/21/16) hydroxyzine (PER PT UNKNOWN 12/21/16) lisinopril (ANGIODEMA 12/21/16) LEIDA Inhibitors (ANGIODEMA 12/21/16) Reconcile Medications Alprazolam (Xanax) 0.5 MG TABLET 1 TAB PO DAILY NEEDED PRN ANXIETY ( Reported) Amlodipine Besylate 10 MG TABLET 1 TAB PO DAILY BP (Reported) Aspirin (Aspirin*) 81 MG TAB.CHEW 81 MG PO DAILY heart health Calcium Carbonate 500 MG/5 ML ORAL.SUSP 20 ML PO BID SUPPLEMENT (Reported) Clonidine 0.2 MG/24 HOUR PATCH.TDWK 1 PAT TOP QWED BP (Reported) Epoetin Carlos (Epogen) 10,000 UNIT/ML VIAL 10,000 UNIT SC Q2W ANEMIA (Reported ) Epoetin Carlos (Epogen) 2,000 UNIT/ML VIAL 2,000 U SC EVERYOTHER W anemia ( Reported) Hydralazine HCl 100 MG TABLET 1 HTAB PO TID HTN (Reported) Hyoscyamine Sulfate (Levsin-Sl) 0.125 MG TAB.SUBL 1-2 TAB SL Q4P PRN abdominal cramps Labetalol HCl 100 MG TABLET 3 TAB PO BID Hypertension Losartan (Cozaar) 100 MG TABLET 1 TAB PO DAILY HEART (Reported) Ondansetron HCl (Zofran) 4 MG TABLET 1 TAB PO Q6-8P PRN NAUSEA (Reported) Tramadol HCl (Ultram) 50 MG TABLET 1-2 TAB PO Q6PRN PRN severe pain Triage Note: TRIAGE: PT SENT TO ER BY DIALYSIS NURSE FOR LOW H/H. WAS TOLD SHE WAS "DANGEROUSLY LOW". PT UNSURE WHAT THE NUMBERS WERE. PT WAS SEEN HERE ON WEDNESDAY FOR JAQUELIN RIB/SIDE PAIN AND RECTAL BLEEDING. HAD NEGATIVE CT SCAN. Triage Nurses Notes Reviewed? yes ? N Is pt currently ? No Onset: Abrupt Duration: day(s): (3), constant Timing: recent history Quality/Severity: aching Severity Numbers: 5 Location: generalized abdomen Radiation: no radiation Activities at Onset: none No Modifying Factors: none Associated Symptoms: denies HPI: 31-year-old female presents emergency room sent in by her dialysis nurse after she was again noted to have a low H&H. Patient was seen here on Wednesday after she had episodes of hematemesis bright red blood per rectum, and blood from her peritoneal port. The patient had repeat blood work performed on Wednesday which showed an increased H&H without requiring transfusion and she was discharged home. She denies any nausea vomiting today she denies any bright red blood per stool. No diarrhea no chest pain dizziness lightheadedness. Pt was given epogen today. Patient is complaining of generalized aching throbbing 5 out of 10 abdominal pain which is similar to her pain on Wednesday Past History Travel History Traveled to [place] past 21 day No Medical History Any Pertinent Medical History? 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 Hemorrhagic stroke in September 2013 at [facility]. In February 2013, a right basal ganglia hemorrhagic CVA. In 2012, she had been transferred to [place] and ultimately to [facility]. EENT: NONE Cardiovascular: hypertension, hyperlipidemia, mitral regurgitation, LVH Respiratory: pneumonia Gastrointestinal: L ABD PERTINEAL PORT UMBILICAL HERNIA Hepatic: NONE Renal: end-stage renal disease on home PERITONEAL dialysis Musculoskeletal: sciatica Psychiatric: anxiety Endocrine: hyperparathyroidism (secondary) Blood Disorders: anemia Cancer(s): NONE HUC OB/Reproductive: NONE Other Medical Hx: Obesity Eczema Catheter associated bacteremia with MRSA in September 2014 MRSA peritonitis/Sepsis History of Non-compliance with Meds and dialysis History of MRSA: No History of VRE: No History of CDIFF: No Surgical History Surgical History: , umbilical hernia repair tenckhof placement [place] CATH PLACEMENT AND REMOVAL placement of the peritoneal dialysis catheter parathyroidectomy Psychosocial History Who do you live with Spouse Services at Home None What is your primary language Faroese Tobacco Use: Current Daily Use Daily Tobacco Use Amount/Type: Smokeless tobacco daily ETOH Use: denies use Illicit Drug Use: denies illicit drug use Family History Family History, If Any: FATHER FH: CAD (coronary artery disease) FH: diabetes mellitus FH: stroke grandmother FH: colon cancer Hx Contributory? No Review of Systems Review of Systems Constitutional: Reports: see HPI. All Other Systems: Reviewed and Negative Comments Review of systems: See HPI, All other systems negative. Constitutional, no chills no fever, no malaise HEENT: No visual changes no sore throat no congestion Cardiovascular: No chest pain , no palpitation Skin, no rashes, no change in skin Respiratory: No dyspnea no cough no sputum GI: nausea vomiting, diarrhea, : No dysuria Muscle skeletal: No joint pain, no joint swelling, no back pain, no neck pain, Neurologic: No numbness, no headache Psych: No stress Heme/endocrine: No bruising no bleeding Immunology: No lymphadenopathy, Physical Exam Physical Exam General Appearance: well developed/nourished, no apparent distress, alert, awake Gastrointestinal: soft, non-tender Comments: Well-developed well-nourished person in no acute distress HEENT: Normal EENT exam; PERRL, EOMI, HEAD is atraumatic. moist mucous membranes. Neck: Supple, normal range of motion Back: Nontender, no CVA tenderness. Full range of motion Cardiovascular: Regular rate and rhythms no murmurs rubs Respiratory: Chest nontender.There were no bony deformities, no asymmetry. No respiratory distress. Patient speaking in full complete sentences. Breath sounds clear to auscultation bilaterally: NO W/R/R Abdomen: Soft, nontender nondistended, no appreciable organomegaly. Normal bowel sounds. No rebound/guarding, No appreciable enlargement of the abdominal aorta, mild ascites Rectal: Nontender. Brown stool heme positive. No mass/hemorrhoid, no fissure. . Extremity: No edema, full range of motion of extremities Neuro: Alert oriented x3, motor sensory normal, There were no obvious focal neurologic abnormalities. Skin: No appreciable rash on exposed skin, skin is warm and dry. Psych: Mood and affect is normal, memory and judgment is normal. Core Measures ACS in differential dx? No Severe Sepsis Present: No Septic Shock Present: No Progress Differential Diagnosis: bowel obstruction, colon cancer, diverticulitis, gastritis, ischemic bowel, inflamm bowel dis, pancreatitis, peptic ulcer, PUD/ GERD, ACUTE ON CHRONIC RENAL INSUFFICIENCY ANEMIA gi BLEED Plan of Care: Orders Procedure Date/time Status Renal Dialysis Diet 12/22 B Active LACTIC ACID 12/21 1750 Active Misc Message 12/21 1626 Active ED Holding Orders 12/21 1626 Active Vital Signs 12/21 1626 Active Code Status 12/[address] in observation 12/21 1614 Active LEUKOCYTE POOR (PACKED CELLS) 12/21 1614 Active Patient Data 12/21 1610 Active EKG 12/21 1608 Active MISTAKE 12/21 1604 Active Intake & Output 12/21 1601 Active PROTHROMBIN TIME 12/21 1450 Complete LACTIC ACID 12/21 1450 Complete COMPREHENSIVE METABOLIC PANEL 12/21 1450 Complete CBC WITHOUT DIFFERENTIAL 12/21 1444 Complete TYPE & SCREEN (NOT X-MATCH) 12/21 1444 Active Laboratory Tests 12/21/16 1501: Anion Gap 9, Estimated GFR 4 L, BUN/Creatinine Ratio 5.0 L, Glucose 95, Lactic Acid 0.9, Calcium 8.4, Total Bilirubin 0.4, AST 20, ALT 36, Alkaline Phosphatase 84, Total Protein 5.4 L, Albumin 3.0 L, Globulin 2.4, Albumin/Globulin Ratio 1.3, PT 11.9, INR 1.13, CBC w Diff NO MAN DIFF REQ, RBC 2.19 L, MCV 89.3, MCH 29.5, RDW 19.8 H, MPV 7.8, Gran % 61.5, Lymphocytes % 22.6, Monocytes % 8.9, Eosinophils % 6.2 H, Basophils % 0.8, Absolute Granulocytes 4.5, Absolute Lymphocytes 1.6, Absolute Monocytes 0.6, Absolute Eosinophils 0.5, Absolute Basophils 0.1, PUBS MCHC 33.0 Labs ordered old records reviewed patient mentating well this time discussed with her at length all of her lab results date need for blood transfusion patient consented to blood case was discussed with Dr. Darling who evaluated the patient agrees with plan CT 12/19/16 IMPRESSION: 1. Moderate simple abdominal ascites, new since the prior chest CT dated 11/10/2016 and increased since the abdominal/pelvis CT dated 07/15/2016. 2. The kidneys are again noted to be severely atrophic. Bilateral hyperdense exophytic lesions which have increased in size since the prior examination. These could represent cysts, however renal ultrasound is recommended to help further characterize. 3. No large or small bowel obstruction. The appendix is not visualized. 4. Redemonstration of a fat-containing periumbilical hernia. Intra-abdominal ascites extends into the hernia. 5. Bilateral iliac erosions, adjacent to the sacroiliac joint, left greater than right. Case discussed with Dr. cameron in er to eval pt agrees with plan advised only 1 unit of prbc at this time d/w dr vazquez will consult d/w dr rios will admit- pt seen by dr darling who agrees with plan (KEON MARIN) Initial ED EKG: none Departure Departure Time of Disposition: 1607 Disposition: STILL A PATIENT Condition: Stable Clinical Impression Primary Impression: Symptomatic anemia Secondary Impressions: Abdominal pain, Chronic renal insufficiency Referrals: CLARA ANGEL MD (PCP/Family) Departure Forms: Customer Survey General Discharge Information Observation Note Spoke With: PAMELA RIOS MD Physician Advisor Notified: MELISSA COTA,GELA Mccann Place Patient In: Non-ED OBS Care Area Rationale for Observation: My rational for observation is as follows patient willrequire at least one unit of packed red blood cells nephrology GI consult possible colonoscopy premature discharge medically harmful
[2016-12-21 15:10] LABS: ABSOLUTE BASOPHIL COUNT 0.1 /CUMM (0.0-0.2); ABSOLUTE EOSINOPHIL COUNT 0.5 /CUMM (0.0-0.7); ABSOLUTE GRANULOCYTE CT 4.5 /CUMM (1.4-6.5); ABSOLUTE LYMPH COUNT 1.6 /CUMM (1.2-3.4); ABSOLUTE MONOCYTE COUNT 0.6 /CUMM (0.10-0.60); BASOPHIL % 0.8 % (0.0-2.0); EOSINOPHIL % 6.2 % (0-5); GRANULOCYTE % 61.5 % (42.2-75.2); MEAN CORPUSCULAR HGB 29.5 PG (27.0-31.0); MEAN CORPUSCULAR VOLUME 89.3 FL (81.0-99.0); MEAN PLATELET VOLUME 7.8 FL (7.4-10.4); PLATELET COUNT 282 /CUMM (130-400); RBC DISTRIBUTION WIDTH 19.8 % (11.5-14.5); RED BLOOD CELL CT 2.19 /CUMM (4.20-5.40); WHITE BLOOD CELL COUNT 7.3 /CUMM (4.8-10.8)
[2016-12-21 15:14] LABS: HEMATOCRIT 19.6 % (37-47)
[2016-12-21 15:18] LABS: PT 11.9 SEC (9.4-12.5)
--- NOTE | 2016-12-21 16:30 | Cons- Nephrology ---
General Information and HPI Consulting Request Date of Consult: 12/21/16 Requested By: Dr. Darling in ER Reason for Consult: eval and management of ESRD Source of Information: patient, old records Exam Limitations: no limitations History of Present Illness: the patient is a 31-year-old female with a history of severe hypertension, history of poor compliance in the past with her antihypertensive regimen leading to multiple hypertensive emergency admissions, and end-stage renal disease for which she was initially on hemodialysis over the past couple years has been on peritoneal dialysis. She presented to the ER on Wednesday, 2 days ago with a chief complaint of bright red blood per rectum with clots, one episode of hematemesis, and she also noticed one episode of bloody effluent (from her peritoneal dialysis drainage). prior to that presentation she met with her peritoneal dialysis nurse on Wednesday morning who sent a PD fluid cell count and culture, and her PD drainage was grossly clear at that time with no blood or obvious infection, but she was given 1 dose of intraperitoneal vancomycin to cover her for possible peritonitis was not strongly suspected. Her baseline hemoglobin on December 01 was 11.7. In the ER on Wednesday her hemoglobin was 6.5 and was repeated and found to be 8.2 and she was discharged. Over the past couple days she's had significant weakness and lethargy and also has had more anxiety (she ran out of her Xanax couple days ago) the series, and reports worsening of her chronic flank and leg pain. Hemoglobin again is 6.5 in the emergency room. Rectal exam is pending but since Wednesday she's not had additional episodes of hematemesis or bright blood per rectum and she denies tarry stools. Looking over her old records in 2011 she had a upper endoscopy in [address] Mayo which revealed erosive gastritis. pathology showed no malignancy at that time. She reports that she's had some chronic edema left. The right, in October she had a negative ultrasound for DVT. Her weight was apparently up 4 pounds today at the peritoneal dialysis clinic and she was advised to go back to the hospital given concerns for severe anemia with significant fatigue. in the ER she slightly hypertensive but better than usual, with no documented episodes of hypotension. Allergies/Medications Allergies: Coded Allergies: Iodinated Contrast Media - Oral and (Intermediate, HIVES AND SWELLING 12/21/16) morphine (Intermediate, HIVES 12/21/16) Penicillins (RASH 12/21/16) hydroxyzine (PER PT UNKNOWN 12/21/16) lisinopril (ANGIODEMA 12/21/16) LEIDA Inhibitors (ANGIODEMA 12/21/16) Home Med List: Alprazolam (Xanax) 0.5 MG TABLET 1 TAB PO DAILY NEEDED PRN ANXIETY ( Reported) Amlodipine Besylate 10 MG TABLET 1 TAB PO DAILY BP (Reported) Aspirin (Aspirin*) 81 MG TAB.CHEW 81 MG PO DAILY heart health Calcium Carbonate 500 MG/5 ML ORAL.SUSP 20 ML PO BID SUPPLEMENT (Reported) Clonidine 0.2 MG/24 HOUR PATCH.TDWK 1 PAT TOP QWED BP (Reported) Epoetin Carlos (Epogen) 10,000 UNIT/ML VIAL 10,000 UNIT SC Q2W ANEMIA (Reported ) Epoetin Acrlos (Epogen) 2,000 UNIT/ML VIAL 2,000 U SC EVERYOTHER W anemia ( Reported) Hydralazine HCl 100 MG TABLET 1 HTAB PO TID HTN (Reported) Hyoscyamine Sulfate (Levsin-Sl) 0.125 MG TAB.SUBL 1-2 TAB SL Q4P PRN abdominal cramps Labetalol HCl 100 MG TABLET 3 TAB PO BID Hypertension Losartan (Cozaar) 100 MG TABLET 1 TAB PO DAILY HEART (Reported) Ondansetron HCl (Zofran) 4 MG TABLET 1 TAB PO Q6-8P PRN NAUSEA (Reported) Tramadol HCl (Ultram) 50 MG TABLET 1-2 TAB PO Q6PRN PRN severe pain Current Medications: Current Medications Sig/Bryan Start time Last Medication Dose Route Stop Time Status Admin Hydromorphone HCl 0 .STK-MED ONE 12/21 1533 DC .ROUTE Hydromorphone HCl 2 MG ONCE ONE 12/21 1530 DC 12/21 IV 12/21 1531 1535 Hydromorphone HCl 0 .STK-MED ONE 12/21 1515 DC .ROUTE Hydromorphone HCl 1 MG ONCE ONE 12/21 1500 DC 12/21 IV 12/21 1501 1517 Review of Systems Review of Systems: Gen: neg fever, chills, nightsweats, wt loss positive for fatigue Skin: neg rash, pruritus Eye: neg visual changes, diplopia ENT: neg hearing changes, rhinitus CV: neg CP, SOB, MAZA, PND, orthopnea Pulm: neg cough, sputum, hemoptysis GI: neg nausea, vomiting, diarrhea, abdominal pain. 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 Hemorrhagic stroke in September 2013 at [facility]. In February 2013, a right basal ganglia hemorrhagic CVA. In 2012, she had been transferred to [place] and ultimately to [facility]. 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 child, parent Services at Home: None Primary Language: St Helenian ETOH Use: denies use Illicit Drug Use: denies illicit drug use Living Will? yes Functional Ability ADLs Independent: dressing, eating, toileting, bathing. Ambulation: independent IADLs Independent: shopping, housework, finances, food prep, telephone, transportation , medication admin. Exam & Diagnostic Data Vital Signs and I&O Vital Signs Date Time Temp Pulse Resp B/P Pulse O2 O2 Flow FiO2 Ox Delivery Rate 12/21 1433 96 12/21 1342 98.6 80 20 162/81 96 Room Air Intake & Output 0312/21 040 Intake Total Output Total Balance Patient 160 lb Weight Physical Exam: General: NAD, A+O x3. +anxios HEENT: NC/AT. No icterus.+conj. pallor Neck: negative for BRODIE, JVD CV: RRR, no m/r/g Pulm: CTAB, no rales Abd: soft, NT/ND, negative renal bruits + small umbilical hernia Lower Ext: neg edema or chronic venous changes Upper Ext: no AVFs or AVGs Back: negative for CVA tenderness Neuro: neg tremor, asterixis Skin: no rash, jaundice : no gaston catheter Results Pertinent Lab Results: Laboratory Tests 12/21 1501 Chemistry Sodium (137 - 145 mmol/L) 132 L Potassium (3.5 - 5.1 mmol/L) 4.5 Chloride (98 - 107 mmol/L) 94 L Carbon Dioxide (22 - 30 mmol/L) 30 Anion Gap (5 - 16) 9 BUN (7 - 17 mg/dL) 52 H Creatinine (0.5 - 1.0 mg/dL) 10.5 *H Estimated GFR (>60 ml/min) 4 L BUN/Creatinine Ratio (7 - 25 %) 5.0 L Glucose (65 - 99 mg/dL) 95 Lactic Acid (0.7 - 2.1 mmol/L) 0.9 Calcium (8.4 - 10.2 mg/dL) 8.4 Total Bilirubin (0.2 - 1.3 mg/dL) 0.4 AST (14 - 36 U/L) 20 ALT (9 - 52 U/L) 36 Alkaline Phosphatase (<127 U/L) 84 Total Protein (6.3 - 8.2 g/dL) 5.4 L Albumin (3.5 - 5.0 g/dL) 3.0 L Globulin (1.9 - 4.2 gm/dL) 2.4 Albumin/Globulin Ratio (1.1 - 2.2 %) 1.3 Coagulation PT (9.4 - 12.5 SEC) 11.9 INR (0.90 - 1.19) 1.13 Hematology CBC w Diff NO MAN DIFF REQ WBC (4.8 - 10.8 /CUMM) 7.3 RBC (4.20 - 5.40 /CUMM) 2.19 L Hgb (12.0 - 16.0 G/DL) 6.5 *L Hct (37 - 47 %) 19.6 *L MCV (81.0 - 99.0 FL) 89.3 MCH (27.0 - 31.0 PG) 29.5 RDW (11.5 - 14.5 %) 19.8 H Plt Count (130 - 400 /CUMM) 282 MPV (7.4 - 10.4 FL) 7.8 Gran % (42.2 - 75.2 %) 61.5 Lymphocytes % (20.5 - 51.1 %) 22.6 Monocytes % (1.7 - 9.3 %) 8.9 Eosinophils % (0 - 5 %) 6.2 H Basophils % (0.0 - 2.0 %) 0.8 Absolute Granulocytes (1.4 - 6.5 /CUMM) 4.5 Absolute Lymphocytes (1.2 - 3.4 /CUMM) 1.6 Absolute Monocytes (0.10 - 0.60 /CUMM) 0.6 Absolute Eosinophils (0.0 - 0.7 /CUMM) 0.5 Absolute Basophils (0.0 - 0.2 /CUMM) 0.1 PUBS MCHC (33.0 - 37.0 G/DL) 33.0 Assessment/Plan Assessment/Recommendations Assessment: Severe anemia with symptoms compatible GI bleed: Patient had history of erosive gastritis and duodenitis in 2011. Would obtain a GI consult. Rectal is pending. I suspect this severe anemia due to GI bleed. The drop in H&H this dramatically is not consistent with anemia of chronic renal disease. Recent ferritin of 400s with low iron saturation 19% would recommend a course of IV iron while in the hospital. Would also recommend transfusion of one unit of packed RBCs given symptomatically anemia. Of note the patient was given a dose of subcutaneous Epogen today at the peritoneal dialysis clinic she will not be due this week. End-stage renal disease: She is on peritoneal dialysis with last exchanges done last night. From a volume sample she appears mildly fluid overloaded with a weight rate of 4 pounds and mild to moderate edema on exam. I will order her for continuous ambulatory peritoneal dialysis in the hospital; she will need 5 exchanges per day, 2 L per exchange. Will use regular calcium solution, 2.5% dextrose. Anxiety: I spoke to the emergency department about giving her dose of Xanax which is her routine outpatient medication that she takes as needed for anxiety attacks Recommendations: GI consult I will follow-up the PD fluid cell count culture that was sent on Wednesday at that [facility] peritoneal dialysis clinic 2.5% dextrose normal calcium exchanges 5 times per day (6 AM, 11 AM, 3 PM, 7 PM, 11 PM) If colonoscopy is warranted during this admission then would prophylax for peritoneal dialysis associated peritonitis by giving 1 g IV prior to the procedure with gentamicin 80 mg IV 1 With type and cross and transfuse 1 unit of packed RBCs Venofer 200 mg IV daily 4 days starting tomorrow (she had a dose of 20 mg IV today at the peritoneal dialysis center) disease. Thank you for the consultation David Joaquin MD
--- NOTE | 2016-12-21 17:03 | History & Physical ---
SETF COTA,[facility] 12/21/16 1703: General Information and HPI MD Statement: I have seen and personally examined TERI BORRERO and documented this H& P. The patient is a 31 year old F who presented with a patient stated chief complaint of [GI bleed]. Source of Information: patient, old records Exam Limitations: no limitations History of Present Illness: This is a 31-year-old lady with a history of ESRD on peritoneal dialysis, hypertension, hypertensive urgency, basal ganglia hemorrhage, recent admission at [facility] just discharged on the repeat presents with a chief complaint of bright red blood per rectum. She states she wasn't feeling well over the weekend and on Wednesday she went to see her dialysis nurse. They did a CBC which was suggestive of a low H&H, subsequently she came to the emergency room where her H&H was found to be normal. At the time the CAT scan of the abdomen and pelvis was also normal. States that since she has been home she has been having bright blood per rectum. Denies any chest pain, shortness of breath , nausea, vomiting, diarrhea fevers or chills. Her only complaint is abdominal pain. 1 episode of hematemesis. Also, her dialysis nurse did drain some peritoneal fluid and sent it out for evaluation, for suspected peritonitis, they also gave her 1 dose of peritoneal vancomycin. Allergies/Medications Allergies: Coded Allergies: Iodinated Contrast Media - Oral and (Intermediate, HIVES AND SWELLING 12/21/16) morphine (Intermediate, HIVES 12/21/16) Penicillins (RASH 12/21/16) hydroxyzine (PER PT UNKNOWN 12/21/16) lisinopril (ANGIODEMA 12/21/16) LEIDA Inhibitors (ANGIODEMA 12/21/16) Home Med list Alprazolam (Xanax) 0.5 MG TABLET 1 TAB PO DAILY NEEDED PRN ANXIETY ( Reported) Amlodipine Besylate 10 MG TABLET 1 TAB PO DAILY BP (Reported) Aspirin (Aspirin*) 81 MG TAB.CHEW 81 MG PO DAILY heart health Calcium Carbonate 500 MG/5 ML ORAL.SUSP 20 ML PO BID SUPPLEMENT (Reported) Clonidine 0.2 MG/24 HOUR PATCH.TDWK 1 PAT TOP QWED BP (Reported) Epoetin Carlos (Epogen) 10,000 UNIT/ML VIAL 10,000 UNIT SC Q2W ANEMIA (Reported ) Epoetin Carlos (Epogen) 2,000 UNIT/ML VIAL 2,000 U SC EVERYOTHER W anemia ( Reported) Hydralazine HCl 100 MG TABLET 1 HTAB PO TID HTN (Reported) Hyoscyamine Sulfate (Levsin-Sl) 0.125 MG TAB.SUBL 1-2 TAB SL Q4P PRN abdominal cramps Labetalol HCl 100 MG TABLET 3 TAB PO BID Hypertension Losartan (Cozaar) 100 MG TABLET 1 TAB PO DAILY HEART (Reported) Ondansetron HCl (Zofran) 4 MG TABLET 1 TAB PO Q6-8P PRN NAUSEA (Reported) Tramadol HCl (Ultram) 50 MG TABLET 1-2 TAB PO Q6PRN PRN severe pain Past History Travel History Traveled to [place] past 21 day No Medical History Neurological: CVA (January 2013), BASAL GANGLIA lACUNAR stroke Basal ganglia hemorhage, right January 2013 Left Basal ganglia stroke September 2013 L occipital infarct acute up 6 of little stroke in March 2015. Hemorrhagic stroke in September 2013 at [facility]. In February 2013, a right basal ganglia hemorrhagic CVA. In 2012, she had been transferred to [place] and ultimately to [facility]. EENT: NONE Cardiovascular: hypertension, hyperlipidemia, mitral regurgitation, LVH Respiratory: pneumonia Gastrointestinal: L ABD PERTINEAL PORT UMBILICAL HERNIA Hepatic: NONE Renal: end-stage renal disease on home PERITONEAL dialysis Musculoskeletal: sciatica Psychiatric: anxiety Endocrine: hyperparathyroidism (secondary) Blood Disorders: anemia Cancer(s): NONE FIELD MARKETER/Reproductive: NONE Other Medical Hx: Obesity Eczema Catheter associated bacteremia with MRSA in September 2014 MRSA peritonitis/Sepsis History of Non-compliance with Meds and dialysis History of MRSA: No History of VRE: No History of CDIFF: No Surgical History Surgical History: , umbilical hernia repair tenckhof placement [place] CATH PLACEMENT AND REMOVAL placement of the peritoneal dialysis catheter parathyroidectomy Past Family/Social History Family History Relations & Conditions if any FATHER FH: CAD (coronary artery disease) FH: diabetes mellitus FH: stroke grandmother FH: colon cancer Psychosocial History Who Do You Live With? child, parent Services at Home: None Primary Language: Occitan ETOH Use: denies use Illicit Drug Use: denies illicit drug use Living Will? yes Functional Ability ADLs Independent: dressing, eating, toileting, bathing. Ambulation: independent IADLs Independent: shopping, housework, finances, food prep, telephone, transportation , medication admin. Review of Systems Review of Systems Constitutional: Reports: see HPI. Exam & Diagnostic Data Last 24 Hrs of Vital Signs/I&O Vital Signs Date Time Temp Pulse Resp B/P Pulse O2 O2 Flow FiO2 Ox Delivery Rate 12/21 1433 96 12/21 1342 98.6 80 20 162/81 96 Room Air Intake & Output 12/21 1600 12/21 0800 12/21 0000 Intake Total Output Total Balance Patient 160 lb Weight Physical Exam General Appearance Alert, Oriented X3, Cooperative HEENT Atraumatic, PERRLA, EOMI Cardiovascular Regular Rate, Normal S1, Normal S2, 2/6 RAMILA Lungs Normal Air Movement Abdomen Normal Bowel Sounds, Soft, TENDER TO PALPATION, PERITONEAL DIALYSIS CATHETER NOTED Neurological Normal Speech Extremities No Clubbing, No Cyanosis, 1+ B/L LE EDEMA Last 24 Hrs of Labs/Ashwin: Laboratory Tests 12/21/16 1501: Anion Gap 9, Estimated GFR 4 L, BUN/Creatinine Ratio 5.0 L, Glucose 95, Lactic Acid 0.9, Calcium 8.4, Total Bilirubin 0.4, AST 20, ALT 36, Alkaline Phosphatase 84, Total Protein 5.4 L, Albumin 3.0 L, Globulin 2.4, Albumin/Globulin Ratio 1.3, PT 11.9, INR 1.13, CBC w Diff NO MAN DIFF REQ, RBC 2.19 L, MCV 89.3, MCH 29.5, RDW 19.8 H, MPV 7.8, Gran % 61.5, Lymphocytes % 22.6, Monocytes % 8.9, Eosinophils % 6.2 H, Basophils % 0.8, Absolute Granulocytes 4.5, Absolute Lymphocytes 1.6, Absolute Monocytes 0.6, Absolute Eosinophils 0.5, Absolute Basophils 0.1, PUBS MCHC 33.0 Diagnostic Data Other Results CT abdomen and pelvis from December 19, 2016 PATIENT: TERI BORRERO PRESENT AGE: 31 PATIENT ACCOUNT NO: [id number] : 87 LOCATION: [facility] ORDERING PHYSICIAN: JAREK SIMMONS MD SERVICE DATE: 12/19/16 EXAM TYPE: CAT - CT ABD & PELVIS W/O IV CONTRAS EXAMINATION: CT ABDOMEN AND PELVIS WITHOUT CONTRAST CLINICAL INFORMATION: Right-sided abdominal pain. Bright red blood per rectum. Ischemia. COMPARISON: Multiple priors, most recent CT abdomen/pelvis dated 07/15/[address] chest dated 11/10/2016. TECHNIQUE: Multidetector volumetric imaging was performed from the superior aspect of the liver through the pubic symphysis. Sagittal and coronal reformatted images were obtained on the technologist's workstation. DLP: 301.66 mGy-cm. FINDINGS: LUNG BASES: There is a small left pleural effusion, decreased in size when compared to the prior examination. LIVER, GALLBLADDER, AND BILIARY TREE: The liver is normal in size, shape, and attenuation. No focal hepatic lesion or biliary ductal dilatation is present. The gallbladder is unremarkable with no evidence of radiopaque gallstones, gallbladder wall thickening, or obvious pericholecystic inflammatory changes. PANCREAS: Unremarkable. SPLEEN: Multiple soft tissue nodules are redemonstrated adjacent to the spleen, unchanged and likely representing splenules. There are atherosclerotic calcifications within the spleen. ADRENAL GLANDS: Unremarkable. KIDNEYS AND URETERS: The kidneys are again noted to be severely atrophic. There are bilateral hypodense exophytic structures which have increased in size since the prior examination. These could represent cysts, however renal ultrasound is recommended to help further characterize. BLADDER: Poorly visualized secondary to the surrounding ascites, which could be secondary to nondistention. GASTROINTESTINAL TRACT: There is moderate intra-abdominal and perihepatic ascites, which is not seen on the prior chest CT but was seen to a lesser extent on the abdominal and pelvic CT dated 07/15/2016. The ascites measures 8 Hounsfield units, consistent with simple fluid. A peritoneal drain is redemonstrated within the left lower abdomen with its tip terminating in the right pelvis. There is no intra-abdominal free air. There is no large or small bowel obstruction. The appendix is not identified. ABDOMINAL WALL: A fat-containing periumbilical hernia is redemonstrated. There is extension of the intra-abdominal ascites into the hernia. LYMPH NODES: Limited evaluation without IV contrast. VASCULAR: There are scattered atherosclerotic calcifications throughout the abdominal aorta and its branch vessels. The IVC is unremarkable. PELVIC VISCERA: The uterus and adnexa are unremarkable. OSSEOUS STRUCTURES: Bilateral sacroiliac periarticular erosions are noted within the iliac bones, left greater than right. These findings are not significantly changed since the prior exam dated 07/15/2016. IMPRESSION: 1. Moderate simple abdominal ascites, new since the prior chest CT dated 11/10/2016 and increased since the abdominal/pelvis CT dated 07/15/2016. 2. The kidneys are again noted to be severely atrophic. Bilateral hyperdense exophytic lesions which have increased in size since the prior examination. These could represent cysts, however renal ultrasound is recommended to help further characterize. 3. No large or small bowel obstruction. The appendix is not visualized. 4. Redemonstration of a fat-containing periumbilical hernia. Intra-abdominal ascites extends into the hernia. 5. Bilateral iliac erosions, adjacent to the sacroiliac joint, left greater than right. DICTATED BY: BERNADETTE BOB MD DATE/TIME DICTATED:12/19/161839 SERVICE LINE LAYER:KANDICE DATE/TIME TRANSCRIBED:12/19/161839 CONFIDENTIAL, DO NOT COPY WITHOUT APPROPRIATE AUTHORIZATION. <Electronically signed in Other Vendor System> SIGNED BY: BERNADETTE BOB MD 191 Assessment/Plan Assessment: Assessment- 1. Acute blood loss anemia 2/2 2. ESRD on peritoneal dialysis 3. Hx of TIA 4. Recent hospitilization d/c on 12/19, for hypertensive urgency 5. Hypertension Plan- Admit to Vitals per protocol IV protonix 40 mg BID 2 large IV's at all times PRBC transfusion, posttransfusion CBC GI consult Nephrology consult, Dr. Joaquin has already seen the patient Continue PO home meds Clear liquid diet, in anticipation of endoscopy/ colonoscopy DVT ppx with ALPS Pain pathway Full code As Ranked By This Provider Problem List: 1. Chronic renal insufficiency 2. Symptomatic anemia 3. LGI bleed Core Measures/Miscellaneous Acute Coronary Syndrome ACS Diagnosis: No Cerebrovascular Accident CVA/TIA Diagnosis: No Congestive Heart Failure CHF Diagnosis: No Venous Thromboembolism VTE Risk Factors: Acute medical illness [facility] prophylaxis d/t: No contraindications No VTE Pharm Prophylaxis d/t: No contraindications VTE Diagnosis: No VTE Type: NONE VTE Confirmed by (Test): NONE Severe Sepsis Severe Sepsis Present: No Septic Shock Septic Shock Present: No Miscellaneous Documentation Attending Case Discussed With: DR. SON Primary Care Physician: CLARA ANGEL MD Patient sees these Specialists NEPHRO Level of Patient Care: General Medicine Resident Review Statement Resident Statement: examined this patient, discussed with biology intern MARKEL SON 12/21/16 1704: Attending MD Review Statement Attending Statement Attending MD Statement: examined this patient, discuss w/resident/PA/HOME SECURITY ALARM INSTALLER, agreed w/resident/PA/HOME SECURITY ALARM INSTALLER, discussed with family, reviewed EMR data (avail), discussed with nursing, discussed with case mgmt, reviewed images Attending Assessment/Plan: consult nephrology and gastroenterology, serial cbc monitoring, gi/dvt prophyalxis
[2016-12-21 18:58] VITALS: BP 180/110
--- NOTE | 2016-12-21 20:44 | CT SCAN REPORT ---
EXAMINATION: CT ABDOMEN AND PELVIS WITHOUT CONTRAST CLINICAL INFORMATION: Abdominal pain. COMPARISON: 12/19/2016. TECHNIQUE: Contiguous axial thin section helical images of the abdomen and pelvis were performed without oral or IV contrast. The data set was reformatted in the coronal and sagittal planes and reviewed on an independent workstation. DLP: 302 mGy-cm. FINDINGS: There is a small left pleural effusion with associated airspace disease. There is inferior segment lingular airspace disease. The visualized portions of the heart are unremarkable. The liver is of normal size and attenuation without focal lesions nor intrahepatic biliary ductal dilation. A normal gallbladder is identified. There is no wall thickening or discernible pericholecystic fluid. The spleen, pancreas, adrenal glands are unremarkable. Both kidneys are atrophic. There is neither hydronephrosis nor nephrolithiasis. There are bilateral renal cysts. There are diffuse vascular calcifications. There is a moderate amount of free fluid within the upper abdomen. A peritoneal dialysis catheter is in place. The tip terminates within the right lower quadrant. There is neither mesenteric nor retroperitoneal lymphadenopathy. There is a fat-containing umbilical hernia. Normal unopacified loops of small and large bowel are identified. There is a moderate amount of pelvic free fluid. The urinary bladder is unremarkable. There is neither pelvic nor inguinal lymphadenopathy. Bone windows: Neither sclerotic nor lytic bone lesions are identified. IMPRESSION: Moderate amount of free fluid within the abdomen and pelvis. Small left pleural effusion. Atrophic kidneys. Dialysis catheter in place.
[2016-12-21 22:30] VITALS: BP 170/110
[2016-12-22 00:05] VITALS: BP 170/80
[2016-12-22 02:59] LABS: ABSOLUTE BASOPHIL COUNT 0.1 /CUMM (0.0-0.2); ABSOLUTE EOSINOPHIL COUNT 0.7 /CUMM (0.0-0.7); ABSOLUTE MONOCYTE COUNT 0.7 /CUMM (0.10-0.60); PLATELET COUNT 239 /CUMM (130-400)
[2016-12-22 03:02] LABS: ABSOLUTE GRANULOCYTE CT 3.6 /CUMM (1.4-6.5); ABSOLUTE LYMPH COUNT 2.1 /CUMM (1.2-3.4); BASOPHIL % 1.1 % (0.0-2.0); GRANULOCYTE % 50.3 % (42.2-75.2); HEMATOCRIT 20.8 % (37-47); MEAN CORPUSCULAR HGB 29.8 PG (27.0-31.0); MEAN CORPUSCULAR VOLUME 90.2 FL (81.0-99.0); MEAN PLATELET VOLUME 8.3 FL (7.4-10.4); RBC DISTRIBUTION WIDTH 18.2 % (11.5-14.5); WHITE BLOOD CELL COUNT 7.2 /CUMM (4.8-10.8)
[2016-12-22 04:45] VITALS: BP 200/110
--- NOTE | 2016-12-22 06:20 | Event Note ---
Event Note Event Note: Around 5:30 am pt had rapid response called. Her BP was 200/100, satting 99% on room air, tachypneic, and afebrile. She was in the process of getting second unit of blood. Notably I got a page from nurse about 5 minutes prior stating that patient was angry that she wasn't getting enough dilaudid and that she wanted to leave AMA. I put in .2 of dilaudid as pt complained of pain, but prior to administration of medication she started complaining of chest pain and RR was called. Additionally, around 5 am, I personally spoke with patient regarding giving her a second unit of blood as the first unit only took her from 6.4-->6.9. She stated that she was having rectal pain and I offered IV tylenol, and PO pain medication; she only insisted on dilaudid. I was hesitant as she is having rectal bleeding and diarrhea/constipation. I explained my hesitancy but pt was adamant about wanting 1mg of dilaudid. There is low suspicion of transfusion reaction currently; however, given elevated BP and chest pain pt requires IV BP medications and telemetry monitoring. Transferred to ICU as a tele hold.
--- NOTE | 2016-12-22 07:27 | PN- Housestaff ---
JOSIAH COTA,[facility] 12/22/16 0727: Subjective Follow-up For: Acute blood loss anemia secondary to GI bleed Hypertension Subjective: Patient seen and examined this morning. She was lethargic, complaining of pain in in her abdomen. Blood pressure systolic ranging between 180-190, remains on hydralazine, labetalol, amlodipine, clonidine patch. Did not have any repeat episodes of hematemesis or bright red blood per rectum. Blood transfusion was held as she was fluid overloaded, will repeat H&H in the evening and reevaluate the need of blood transfusion. In the meanwhile shouldn' t did not have any repeat episodes of upper or lower GI bleed. Review of Systems Constitutional: Reports: see HPI. Objective Last 24 Hrs of Vital Signs/I&O Vital Signs Date Time Temp Pulse Resp B/P Pulse O2 O2 Flow FiO2 Ox Delivery Rate 12/22 0932 68 172/101 12/22 0932 68 172/101 12/22 0931 68 172/101 12/22 0931 68 172/101 12/22 0800 96 Room Air Room Air 12/22 0800 98.2 64 16 178/102 96 Room Air Room Air 12/22 0558 66 182/103 12/22 0445 200/110 12/22 0005 98.0 76 20 170/80 97 Room Air 12/21 2230 97.4 74 20 170/110 95 Room Air 12/21 2044 78 180/108 12/21 2043 78 180/108 12/21 1945 Room Air 12/21 1858 98.9 76 20 180/110 96 Room Air Intake & Output 12/22 1600 12/22 0800 12/22 0000 Intake Total 400 240 890 Output Total 600 500 500 Balance -200 -260 390 Intake, Blood 120 Product Intake, IV 20 Intake, Oral 400 240 750 Number 1 Bowel Movements Output, 600 500 500 Dialysate Patient 72.575 kg Weight Physical Exam General Appearance: Alert, Oriented X3 Cardiovascular: Regular Rate, Normal S1, Normal S2, No Murmurs Lungs: Clear to Auscultation, Normal Air Movement Abdomen: Normal Bowel Sounds, tender in rlq Extremities: No Clubbing, No Cyanosis, edema b/l lle Current Medications: Current Medications Sig/Bryan Start time Last Medication Dose Route Stop Time Status Admin Alprazolam 0.5 MG ONCE ONE 12/21 1745 DC 12/21 PO 12/21 1746 1901 Alprazolam 0.5 MG DAILY NEEDED 12/21 1730 AC 12/22 PO 12/28 1729 0016 Amlodipine Besylate 10 MG DAILY 12/22 1000 AC 12/22 PO 0932 Calcium Carbonate 1,250 MG BID 12/21 2200 AC 12/22 PO 0931 Clonidine 2 PAT Q168 12/22 1000 AC TOP Diphenhydramine HCl 50 MG ONCE ONE 12/22 0545 DC 12/22 IV 12/22 0546 0558 Diphenhydramine HCl 6.25 MG ONCE ONE 12/21 2145 DC 12/21 PO 12/21 2146 2224 Hydralazine HCl 5 MG ONCE ONE 12/22 0545 DC 12/22 IV 12/22 0546 0558 Hydralazine HCl 100 MG TID 12/21 2200 AC 12/22 PO 0932 Hydromorphone HCl 1 MG Q4-6 PRN PRN 12/22 1345 AC 12/22 IV 1351 Hydromorphone HCl 0.2 MG ONCE ONE 12/22 0530 DC 12/22 IV 12/22 0531 0645 Hydromorphone HCl 2 MG ONCE PRN 12/21 1830 AC 12/21 IV 1838 Hydromorphone HCl 1 MG Q6P PRN 12/21 1830 WV 12/22 IV 0932 Labetalol HCl 300 MG BID 12/21 2200 AC 12/22 PO 0931 Losartan Potassium 100 MG DAILY 12/22 1000 AC 12/22 PO 0931 Pantoprazole Sodium 40 MG BID 12/21 2200 AC 12/22 IV 0932 Last 24 Hrs of Lab/Ashwin Results Last 24 Hrs of Labs/Mics: Laboratory Tests 12/22/16 1230: Lymphocytes 14, % Normal PMNs 1, Misc Hematology Test 83, Fluid WBC 8 H, Fld Total RBCs Counted 4 H 12/22/16 0625: Anion Gap 13, Estimated GFR 4 L, Glucose 79, Calcium 7.9 L, Phosphorus 5.4 H, Magnesium 1.7, Total Bilirubin 0.5, AST 25, ALT 42, Troponin I 0.02, Albumin 2.9 L 12/22/16 0240: Lactic Acid 0.8, CBC w Diff NO MAN DIFF REQ, RBC 2.30 L, MCV 90.2, MCH 29.8, RDW 18.2 H, MPV 8.3, Gran % 50.3, Lymphocytes % 29.2, Monocytes % 9.4 H, Eosinophils % 10.0 H, Basophils % 1.1, Absolute Granulocytes 3.6, Absolute Lymphocytes 2.1, Absolute Monocytes 0.7 H, Absolute Eosinophils 0.7, Absolute Basophils 0.1, PUBS MCHC 33.0 Microbiology 12/22 1230 BODY FLUID: Body Fluid Culture - RECD 12/22 1230 BODY FLUID: Gram Stain - RECD Assessment/Plan Assessment: This is a 31-year-old lady with a history of ESRD on peritoneal dialysis, hypertension, hypertensive urgency, basal ganglia hemorrhage, recent admission at [facility] just discharged on the presents with a chief complaint of bright red blood per rectum. She stated that she wasn't feeling well over the weekend and on Wednesday she went to see her dialysis nurse. They did a CBC which was suggestive of a low H&H, subsequently she came to the emergency room where her H&H was found to be normal. At the time the CAT scan of the abdomen and pelvis was also normal. States that since she has been home she has been having bright blood per rectum. Denied any chest pain, shortness of breath, nausea, vomiting, diarrhea fevers or chills. Her only complaint upon presentation was abdominal pain and 1 episode of hematemesis. Also, her dialysis nurse did drain some peritoneal fluid and sent it out for evaluation, for suspected peritonitis, they also gave her 1 dose of peritoneal vancomycin. Vitals upon presentation temperature 98.6, pulse 80, respiratory rate 20, blood pressure 162/81, satting in the 90s on room air Pertinent labs H&H 6.5 and 19.6 upon presentation, BUN and creatinine 52 and 10.5 She's currently being managed for the following conditions. Acute blood loss anemia second to GI bleed: -H&H upon presentation was 6.5 and and can 19.6, she endorses having abdominal pain, an episode of hematemesis along with bright red blood per rectum. Yesterday, she started receiving blood transfusion during which she was reported to have high blood pressure, there was concern off transfusion reaction, blood first transfusion was immediately stopped, but transfusion workup was found to be negative afterwards. -Repeat H&H today was 6.9, secondary to fluid overload, nephrology recommended not to transfuse the patient at this point, will continue to monitor H&H every 8 hours, patient did not have any repeat episodes of hematemesis or bright red per rectum -GI on board, will follow-up recommendations regarding need for endoscopy or colonoscopy. -We'll continue GI prophylaxis with Protonix 40 mg twice a day -We'll maintain 2 large IV at all times and monitor vitals closely Hypertension: Blood pressure monitoring closely, -DVT prophylaxis with Alps Pain pathway Patient is full code Problem List: 1. ESRD (end stage renal disease) on dialysis 2. Erosive gastritis 3. Acute blood loss anemia Pain Ratin Pain Location: abdomen Pain Goal: Remain pain free Pain Plan: dilaudid Tomorrow's Labs & Rationales: CBC in setting of ABLA Bep for lytes DVT/Prophylaxis: MARKEL John 12/22/16 1117: Attending MD Review Statement Attending Statement Attending MD Statement: examined this patient, discuss w/resident/PA/OUTDOOR ADVERTISING LEASING AGENT, agreed w/resident/PA/OUTDOOR ADVERTISING LEASING AGENT, discussed with family, reviewed EMR data (avail), discussed with nursing, discussed with case mgmt, reviewed images Attending Assessment/Plan: Assessment- 1. Acute blood loss anemia 2/2 gi bleed. 2. ESRD on peritoneal dialysis 3. Hx of TIA/hemorrhagic stroke. 4. Recent hospitilization d/c on 12/19, for hypertensive urgency 5. Hypertension accelerated 6 anemia mulitfacotiral chronic kidney disease, h/o epogen in past ICU monitoring Vitals per protocol IV protonix 40 mg BID, f/u GI EGD/colon 2 large IV's at all times PRBC transfusion, posttransfusion CBC Nephrology for PD plan Continue PO home meds for htn DVT ppx with ALPS full code. plan of care d/wed patient/family bedisde in ICU
[2016-12-22 08:00] VITALS: BP 178/102
--- NOTE | 2016-12-22 08:22 | Cons- Gastroenterology ---
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 She indicates having approximately 3 episodes of bloody stools with associated clots that started on Wednesday. This was also accompanied by one episode of nausea and bloody vomitus. She also endorses increased lethargy during this time. VS on admission: BP 162/81, HR 80, RR 20, SPO2 96% on RA, T 98.6 Physical exam on admission: Alert and in no acute distress. RRR, normal S1/S2. Lungs CTA BL. Abdomen: Soft, mild tenderness to palpation, peritoneal dialysis catheter in place with no evidence of erythema. Pertinent labs: H&H 6.5/19.6, platelets 282K, sodium 132, potassium 4.5, BUN/CR 52/10.5. T bili: 0.5. AST/ALT: 25/42. Previous iron studies 2013: Iron <10, TIBC 170 CT abdomen and pelvis without IV contrast: Moderate amount of free fluid in the abdomen and pelvis. Small left pleural effusion. The patient received 2 unit PRBC transfusion with repeat H&H 6.9/20.8 ROS: The patient is noticeably lethargic at this time and unable to stay awake during our encounter. She does endorse intermittent episodes of right lower quadrant abdominal discomfort. She denies any nausea, chest pain, epigastric discomfort, difficulty breathing at this time. Allergies/Medications Allergies: Coded Allergies: Iodinated Contrast Media - Oral and (Intermediate, HIVES AND SWELLING 12/21/16) morphine (Intermediate, HIVES 12/21/16) Penicillins (RASH 12/21/16) hydroxyzine (PER PT UNKNOWN 12/21/16) lisinopril (ANGIODEMA 12/21/16) LEIDA Inhibitors (ANGIODEMA 12/21/16) Home Med List: Alprazolam (Xanax) 0.5 MG TABLET 1 TAB PO DAILY NEEDED PRN ANXIETY ( Reported) Amlodipine Besylate 10 MG TABLET 1 TAB PO DAILY BP (Reported) Aspirin (Aspirin*) 81 MG TAB.CHEW 81 MG PO DAILY heart health Calcium Carbonate 500 MG/5 ML ORAL.SUSP 20 ML PO BID SUPPLEMENT (Reported) Clonidine 0.2 MG/24 HOUR PATCH.TDWK 1 PAT TOP QWED BP (Reported) Epoetin Carlos (Epogen) 10,000 UNIT/ML VIAL 10,000 UNIT SC Q2W ANEMIA (Reported ) Epoetin Carlos (Epogen) 2,000 UNIT/ML VIAL 2,000 U SC EVERYOTHER W anemia ( Reported) Hydralazine HCl 100 MG TABLET 1 HTAB PO TID HTN (Reported) Hyoscyamine Sulfate (Levsin-Sl) 0.125 MG TAB.SUBL 1-2 TAB SL Q4P PRN abdominal cramps Labetalol HCl 100 MG TABLET 3 TAB PO BID Hypertension Losartan (Cozaar) 100 MG TABLET 1 TAB PO DAILY HEART (Reported) Ondansetron HCl (Zofran) 4 MG TABLET 1 TAB PO Q6-8P PRN NAUSEA (Reported) Tramadol HCl (Ultram) 50 MG TABLET 1-2 TAB PO Q6PRN PRN severe pain Past History Travel History Traveled to [place] past 21 day No Medical History Blood Transfusion Hx: No Neurological: CVA (January 2013), BASAL GANGLIA lACUNAR stroke Basal ganglia hemorhage, right January 2013 Left Basal ganglia stroke September 2013 L occipital infarct acute up 6 of little stroke in March 2015. Hemorrhagic stroke in September 2013 at [facility]. In February 2013, a right basal ganglia hemorrhagic CVA. In 2012, she had been transferred to [place] and ultimately to [facility]. 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 child, parent Services at Home: None Primary Language: [place] Smoking Status: Current Everyday Smoker ETOH Use: denies use Illicit Drug Use: denies illicit drug use Living Will? yes Functional Ability ADLs Independent: dressing, eating, toileting, bathing. Ambulation: independent IADLs Independent: shopping, housework, finances, food prep, telephone, transportation , medication admin. Review of Systems Review of Systems Constitutional: Reports: see HPI. EENTM: Reports: see HPI. Cardiovascular: Reports: no symptoms. Respiratory: Reports: no symptoms. GI: Reports: see HPI. Genitourinary: Reports: no symptoms. Musculoskeletal: Reports: no symptoms. Skin: Reports: no symptoms. Exam & Diagnostic Data Vital Signs and I&O Vital Signs Date Time Temp Pulse Resp B/P Pulse O2 O2 Flow FiO2 Ox Delivery Rate 12/22 0800 96 Room Air Room Air 12/22 0800 98.2 64 16 178/102 96 Room Air Room Air 12/22 0558 66 182/103 12/22 0445 200/110 12/22 0005 98.0 76 20 170/80 97 Room Air 12/21 2230 97.4 74 20 170/110 95 Room Air 12/21 2044 78 180/108 12/21 2043 78 180/108 12/21 1945 Room Air 12/21 1858 98.9 76 20 180/110 96 Room Air 12/21 1433 96 12/21 1342 98.6 80 20 162/81 96 Room Air Intake & Output 12/22 1600 12/22 0400 12/21 1600 12/21 0400 12/20 1600 12/20 0400 Intake Total 240 890 Output Total 500 500 Balance -260 390 Intake, Blood 120 Product Intake, IV 20 Intake, Oral 240 750 Number 1 Bowel Movements Output, 500 500 Dialysate Patient 160 lb 160 lb Weight Physical Exam General Appearance: Patient is resting comfortably in bed, difficult to arouse to verbal commands but arousable to tactile stimulation Head: atraumatic, normal appearance Eyes: Bilateral: normal appearance, EOMI. Ears, Nose, Throat: hearing grossly normal Respiratory: normal breath sounds, no respiratory distress, lungs clear Cardiovascular: regular rate/rhythm, edema Gastrointestinal: normal bowel sounds, soft, tenderness to palpation around the right lower quadrant. Peritoneal dialysis catheter secured to the left lower quadrant with no evidence of erythema or dehiscence around the site Extremities: 2+ pitting edema bilateral lower extremities Results Pertinent Lab Results: Laboratory Tests 12/22 12/22 0625 0240 Chemistry Sodium (137 - 145 mmol/L) 133 L Potassium (3.5 - 5.1 mmol/L) 4.6 Chloride (98 - 107 mmol/L) 94 L Carbon Dioxide (22 - 30 mmol/L) 26 Anion Gap (5 - 16) 13 BUN (7 - 17 mg/dL) 53 H Creatinine (0.5 - 1.0 mg/dL) 10.8 *H Estimated GFR (>60 ml/min) 4 L Glucose (65 - 99 mg/dL) 79 Lactic Acid (0.7 - 2.1 mmol/L) 0.8 Calcium (8.4 - 10.2 mg/dL) 7.9 L Phosphorus (2.5 - 4.5 mg/dL) 5.4 H Magnesium (1.6 - 2.3 mg/dL) 1.7 Total Bilirubin (0.2 - 1.3 mg/dL) 0.5 AST (14 - 36 U/L) 25 ALT (9 - 52 U/L) 42 Troponin I (< 0.11 ng/ml) 0.02 Albumin (3.5 - 5.0 g/dL) 2.9 L Hematology CBC w Diff NO MAN DIFF REQ WBC (4.8 - 10.8 /CUMM) 7.2 RBC (4.20 - 5.40 /CUMM) 2.30 L Hgb (12.0 - 16.0 G/DL) 6.9 *L Hct (37 - 47 %) 20.8 L MCV (81.0 - 99.0 FL) 90.2 MCH (27.0 - 31.0 PG) 29.8 RDW (11.5 - 14.5 %) 18.2 H Plt Count (130 - 400 /CUMM) 239 MPV (7.4 - 10.4 FL) 8.3 Gran % (42.2 - 75.2 %) 50.3 Lymphocytes % (20.5 - 51.1 %) 29.2 Monocytes % (1.7 - 9.3 %) 9.4 H Eosinophils % (0 - 5 %) 10.0 H Basophils % (0.0 - 2.0 %) 1.1 Absolute Granulocytes (1.4 - 6.5 /CUMM) 3.6 Absolute Lymphocytes (1.2 - 3.4 /CUMM) 2.1 Absolute Monocytes (0.10 - 0.60 /CUMM) 0.7 H Absolute Eosinophils (0.0 - 0.7 /CUMM) 0.7 Absolute Basophils (0.0 - 0.2 /CUMM) 0.1 PUBS MCHC (33.0 - 37.0 G/DL) 33.0 12/21 1501 Chemistry Sodium (137 - 145 mmol/L) 132 L Potassium (3.5 - 5.1 mmol/L) 4.5 Chloride (98 - 107 mmol/L) 94 L Carbon Dioxide (22 - 30 mmol/L) 30 Anion Gap (5 - 16) 9 BUN (7 - 17 mg/dL) 52 H Creatinine (0.5 - 1.0 mg/dL) 10.5 *H Estimated GFR (>60 ml/min) 4 L BUN/Creatinine Ratio (7 - 25 %) 5.0 L Glucose (65 - 99 mg/dL) 95 Lactic Acid (0.7 - 2.1 mmol/L) 0.9 Calcium (8.4 - 10.2 mg/dL) 8.4 Total Bilirubin (0.2 - 1.3 mg/dL) 0.4 AST (14 - 36 U/L) 20 ALT (9 - 52 U/L) 36 Alkaline Phosphatase (<127 U/L) 84 Total Protein (6.3 - 8.2 g/dL) 5.4 L Albumin (3.5 - 5.0 g/dL) 3.0 L Globulin (1.9 - 4.2 gm/dL) 2.4 Albumin/Globulin Ratio (1.1 - 2.2 %) 1.3 Coagulation PT (9.4 - 12.5 SEC) 11.9 INR (0.90 - 1.19) 1.13 Hematology CBC w Diff NO MAN DIFF REQ WBC (4.8 - 10.8 /CUMM) 7.3 RBC (4.20 - 5.40 /CUMM) 2.19 L Hgb (12.0 - 16.0 G/DL) 6.5 *L Hct (37 - 47 %) 19.6 *L MCV (81.0 - 99.0 FL) 89.3 MCH (27.0 - 31.0 PG) 29.5 RDW (11.5 - 14.5 %) 19.8 H Plt Count (130 - 400 /CUMM) 282 MPV (7.4 - 10.4 FL) 7.8 Gran % (42.2 - 75.2 %) 61.5 Lymphocytes % (20.5 - 51.1 %) 22.6 Monocytes % (1.7 - 9.3 %) 8.9 Eosinophils % (0 - 5 %) 6.2 H Basophils % (0.0 - 2.0 %) 0.8 Absolute Granulocytes (1.4 - 6.5 /CUMM) 4.5 Absolute Lymphocytes (1.2 - 3.4 /CUMM) 1.6 Absolute Monocytes (0.10 - 0.60 /CUMM) 0.6 Absolute Eosinophils (0.0 - 0.7 /CUMM) 0.5 Absolute Basophils (0.0 - 0.2 /CUMM) 0.1 PUBS MCHC (33.0 - 37.0 G/DL) 33.0 Imaging/Other Studies: CT abdomen and pelvis: Moderate amount of free fluid within the abdomen and pelvis. Small left pleural effusion. Atrophic kidneys. Dialysis catheter in place. Assessment/Plan Assessment/Recommendations: 31-year-old lady with a PMH of ESRD on peritoneal dialysis, HTN, HLD, CVA secondary to hypertensive urgency, anemia, anxiety, erosive gastritis (EGD on ) recently discharged from [facility] for symptomatic hypertensive urgency was admitted with complaints of 3 episodes of bloody stool with clots, one episode of nausea and bloody vomitus, associated increased lethargy and weakness and found to be anemic beyond her baseline. Guaiac- positive stools in the ER VS on admission: BP 162/81, HR 80, RR 20, SPO2 96% on RA, T 98.6 Pertinent labs: H&H 6.5/19.6, platelets 282K, sodium 132, potassium 4.5, BUN/CR 52/10.5. T bili: 0.5. AST/ALT: 25/42. Previous iron studies 2013: Iron <10, TIBC 170 Patient received 2 units PRBC transfusion repeat H&H 6.9/20.8 Problem list: 1. Acute blood loss anemia 2. GI bleed: DDx Angiodysplasia vs erosive gastritis 3. History of erosive gastritis 4. Iron deficiency 5. ESRD on peritoneal dialysis 6. Hypertensive urgency 7. History of CVA Recommendations: * Repeat CBC Q8hrs with transfusion goal for Hct >24. Please consult with nephro on target Hb/Hct * Continue to hold aspirin * There is a possiblity that she urrutia have a duodenal ulcer based on the LUQ abdominal discomfort and her reports of hematemesis. Elevation in BUN in her is an unreliable indicator of this in the setting of ESRD. Continue IV Protonix for now * Positive guaiac stool + blot clots could be primarily based on the upper Gi source with rapid transit time * CLear liquids, NPO after midnight wiht planned EGD in the AM * Per nephro, patient will require peritoneal fluid emptying prior to EGD. No need for prophylaxis ABX as no plan to do a colonscopy * Repeat iron studies and follow up with nephrology on supplementation * Patient will likely benefit from enteric-coated aspirin at discharge Problem List: 1. LGI bleed 2. Symptomatic anemia 3. Acute blood loss anemia 4. Erosive gastritis 5. Iron deficiency Consult Acknowledgment - Thank you for your consult request. 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 Rule out peptic ulcer disease. Differential diagnosis includes esophagitis, gastritis, angiodysplasias , or (less likely) concurrent upper and lower GI bleed. There is no peritonitis or intraperitoneal bleed (analysis of dialysate). The bleeding seems to have ceased, although there was a less than expected rise in hemoglobin after the first unit of packed red blood cell transfusion. There is hemodynamic stability. Recommendations * Await tonight CBC; transfuse if hemoglobin is less than 7 * Empiric PPI * Clear liquid diet; nothing by mouth after 6 AM * EGD tomorrow. The patient should be empty of peritoneal dialysate fluid. As discussed with nephrology, there is no need for prophylactic antibiotics. Assessment/Plan Consult Acknowledgment - Thank you for your consult request.
--- NOTE | 2016-12-22 09:13 | PN- Nephrology ---
Assessment/Plan Assessment: End-stage renal disease: We'll continue 5 exchange per day of PD. We'll continue the 2.5% dextrose exchanges, however we'll change one of the 5 changes per day to a 4.25% dextrose solution for additional fluid removal given the recent blood transfusion and minimal ultrafiltration with the current prescription. Anemia: Acute anemia due to GI bleed. She has underlying end-stage renal disease with chronic anemia however the current presentation is an acute anemia due to GIB. She is status post dose of Venofer for yesterday 200 mg at the [facility] for functional iron deficiency and would give an additional 4 doses over the next 4 days, will hospitalized. She also received a dose of Epogen yesterday at the [facility] clinic that she will not be due for an additional week. Further workup per the gi service. If patient goes for an upper endoscopy that would drain PD fluid dry prior to the procedure. If she goes for a colonoscopy that she should also be drained dry but should also be prophylaxed with intravenous antibiotics prior to the procedure, specifically ampicillin 1 g IV and gentamicin, 1 mg/kg IV x1. Hypertension: Continue outpatient medication regimen and monitor. She's currently hypertensive but she is yet to receive her morning blood pressure medications Suggestion: As above Subjective Subjective: Pt a bit groggy this AM after dilaudid/benadryl had anxiety during 2nd blood transfusion to the 2nd unit was aborted Review of Systems: no fever/chills no cp/sob Objective Vital Signs and I&Os Vital Signs Date Time Temp Pulse Resp B/P Pulse O2 O2 Flow FiO2 Ox Delivery Rate 12/22 0800 98.2 64 16 178/102 96 Room Air Room Air 12/22 0558 66 182/103 12/22 0445 200/110 12/22 0005 98.0 76 20 170/80 97 Room Air 12/21 2230 97.4 74 20 170/110 95 Room Air 12/21 2044 78 180/108 12/21 2043 78 180/108 12/21 1945 Room Air 12/21 1858 98.9 76 20 180/110 96 Room Air 12/21 1433 96 12/21 1342 98.6 80 20 162/81 96 Room Air Intake & Output 12/22 1600 12/22 0400 12/21 1600 12/21 0400 12/20 1600 12/20 0400 Intake Total 240 890 Output Total 500 500 Balance -260 390 Intake, Blood 120 Product Intake, IV 20 Intake, Oral 240 750 Number 1 Bowel Movements Output, 500 500 Dialysate Patient 160 lb 160 lb Weight Physical Exam: General: NAD, A+O x3. HEENT: NC/AT. No icterus. Moist mucosa Neck: negative for BRODIE, JVD CV: RRR, no m/r/g Pulm: CTAB, no rales Abd: soft, NT small umbilical hernia, +PD cath Lower Ext: 1+ edema L>R Upper Ext: no AVFs or AVGs Back: negative for CVA tenderness Neuro: neg tremor, asterixis Skin: no rash, jaundice : no gaston catheter Current Medications: Current Medications Sig/Bryan Start time Last Medication Dose Route Stop Time Status Admin Alprazolam 0.5 MG ONCE ONE 12/21 1745 DC 12/21 PO 12/21 1746 1901 Alprazolam 0.5 MG DAILY NEEDED 12/21 1730 AC 12/22 PO 12/28 1729 0016 Amlodipine Besylate 10 MG DAILY 12/22 1000 AC PO Calcium Carbonate 1,250 MG BID 12/21 2200 AC 12/21 PO 2043 Diphenhydramine HCl 50 MG ONCE ONE 12/22 0545 DC 12/22 IV 12/22 0546 0558 Diphenhydramine HCl 6.25 MG ONCE ONE 12/21 2145 DC 12/21 PO 12/21 2146 2224 Hydralazine HCl 5 MG ONCE ONE 12/22 0545 DC 12/22 IV 12/22 0546 0558 Hydralazine HCl 100 MG TID 12/21 2200 AC 12/21 PO 2044 Hydromorphone HCl 0.2 MG ONCE ONE 12/22 0530 DC 12/22 IV 12/22 0531 0645 Hydromorphone HCl 2 MG ONCE PRN 12/21 1830 AC 12/21 IV 1838 Hydromorphone HCl 1 MG Q6P PRN 12/21 1830 12/22 IV 0234 Hydromorphone HCl 0 .STK-MED ONE 12/21 1533 DC .ROUTE Hydromorphone HCl 2 MG ONCE ONE 12/21 1530 DC 12/21 IV 12/21 1531 1535 Hydromorphone HCl 0 .STK-MED ONE 12/21 1515 DC .ROUTE Hydromorphone HCl 1 MG ONCE ONE 12/21 1500 DC 12/21 IV 12/21 1501 1517 Labetalol HCl 300 MG BID 12/21 2199 AC 12/21 PO 2042 Losartan Potassium 100 MG DAILY 12/22 1000 AC PO Pantoprazole Sodium 40 MG BID 12/21 2199 AC 12/21 IV 2043 Results Pertinent Lab Results: Laboratory Tests 12/22 12/22 0625 0240 Chemistry Sodium (137 - 145 mmol/L) 133 L Potassium (3.5 - 5.1 mmol/L) 4.6 Chloride (98 - 107 mmol/L) 94 L Carbon Dioxide (22 - 30 mmol/L) 26 Anion Gap (5 - 16) 13 BUN (7 - 17 mg/dL) 53 H Creatinine (0.5 - 1.0 mg/dL) 10.8 *H Estimated GFR (>60 ml/min) 4 L Glucose (65 - 99 mg/dL) 79 Lactic Acid (0.7 - 2.1 mmol/L) 0.8 Calcium (8.4 - 10.2 mg/dL) 7.9 L Phosphorus (2.5 - 4.5 mg/dL) 5.4 H Magnesium (1.6 - 2.3 mg/dL) 1.7 Total Bilirubin (0.2 - 1.3 mg/dL) 0.5 AST (14 - 36 U/L) 25 ALT (9 - 52 U/L) 42 Troponin I (< 0.11 ng/ml) 0.02 Albumin (3.5 - 5.0 g/dL) 2.9 L Hematology CBC w Diff NO MAN DIFF REQ WBC (4.8 - 10.8 /CUMM) 7.2 RBC (4.20 - 5.40 /CUMM) 2.30 L Hgb (12.0 - 16.0 G/DL) 6.9 *L Hct (37 - 47 %) 20.8 L MCV (81.0 - 99.0 FL) 90.2 MCH (27.0 - 31.0 PG) 29.8 RDW (11.5 - 14.5 %) 18.2 H Plt Count (130 - 400 /CUMM) 239 MPV (7.4 - 10.4 FL) 8.3 Gran % (42.2 - 75.2 %) 50.3 Lymphocytes % (20.5 - 51.1 %) 29.2 Monocytes % (1.7 - 9.3 %) 9.4 H Eosinophils % (0 - 5 %) 10.0 H Basophils % (0.0 - 2.0 %) 1.1 Absolute Granulocytes (1.4 - 6.5 /CUMM) 3.6 Absolute Lymphocytes (1.2 - 3.4 /CUMM) 2.1 Absolute Monocytes (0.10 - 0.60 /CUMM) 0.7 H Absolute Eosinophils (0.0 - 0.7 /CUMM) 0.7 Absolute Basophils (0.0 - 0.2 /CUMM) 0.1 PUBS MCHC (33.0 - 37.0 G/DL) 33.0 12/21 1501 Chemistry Sodium (137 - 145 mmol/L) 132 L Potassium (3.5 - 5.1 mmol/L) 4.5 Chloride (98 - 107 mmol/L) 94 L Carbon Dioxide (22 - 30 mmol/L) 30 Anion Gap (5 - 16) 9 BUN (7 - 17 mg/dL) 52 H Creatinine (0.5 - 1.0 mg/dL) 10.5 *H Estimated GFR (>60 ml/min) 4 L BUN/Creatinine Ratio (7 - 25 %) 5.0 L Glucose (65 - 99 mg/dL) 95 Lactic Acid (0.7 - 2.1 mmol/L) 0.9 Calcium (8.4 - 10.2 mg/dL) 8.4 Total Bilirubin (0.2 - 1.3 mg/dL) 0.4 AST (14 - 36 U/L) 20 ALT (9 - 52 U/L) 36 Alkaline Phosphatase (<127 U/L) 84 Total Protein (6.3 - 8.2 g/dL) 5.4 L Albumin (3.5 - 5.0 g/dL) 3.0 L Globulin (1.9 - 4.2 gm/dL) 2.4 Albumin/Globulin Ratio (1.1 - 2.2 %) 1.3 Coagulation PT (9.4 - 12.5 SEC) 11.9 INR (0.90 - 1.19) 1.13 Hematology CBC w Diff NO MAN DIFF REQ WBC (4.8 - 10.8 /CUMM) 7.3 RBC (4.20 - 5.40 /CUMM) 2.19 L Hgb (12.0 - 16.0 G/DL) 6.5 *L Hct (37 - 47 %) 19.6 *L MCV (81.0 - 99.0 FL) 89.3 MCH (27.0 - 31.0 PG) 29.5 RDW (11.5 - 14.5 %) 19.8 H Plt Count (130 - 400 /CUMM) 282 MPV (7.4 - 10.4 FL) 7.8 Gran % (42.2 - 75.2 %) 61.5 Lymphocytes % (20.5 - 51.1 %) 22.6 Monocytes % (1.7 - 9.3 %) 8.9 Eosinophils % (0 - 5 %) 6.2 H Basophils % (0.0 - 2.0 %) 0.8 Absolute Granulocytes (1.4 - 6.5 /CUMM) 4.5 Absolute Lymphocytes (1.2 - 3.4 /CUMM) 1.6 Absolute Monocytes (0.10 - 0.60 /CUMM) 0.6 Absolute Eosinophils (0.0 - 0.7 /CUMM) 0.5 Absolute Basophils (0.0 - 0.2 /CUMM) 0.1 PUBS MCHC (33.0 - 37.0 G/DL) 33.0
--- NOTE | 2016-12-22 13:43 | RADIOLOGY REPORT ---
EXAMINATION: XR PORTABLE CHEST CLINICAL INFORMATION: Shortness of breath. Question fluid overload. COMPARISON: 12/14/2016 TECHNIQUE: Portable AP view of the chest was obtained. FINDINGS: Cardiac leads overlie the chest. The lungs are well expanded. There is persistent central vascular prominence without overt edema. No pleural effusion or pneumothorax. The cardiomediastinal silhouette remains prominent, with a calcified aorta. IMPRESSION: No significant change from prior. Central vascular prominence without overt edema. Enlarged cardiac silhouette.
[2016-12-22 16:00] VITALS: BP 118/78
[2016-12-22 20:24] LABS: ABSOLUTE BASOPHIL COUNT 0.1 /CUMM (0.0-0.2); ABSOLUTE EOSINOPHIL COUNT 0.7 /CUMM (0.0-0.7); ABSOLUTE GRANULOCYTE CT 3.5 /CUMM (1.4-6.5); ABSOLUTE LYMPH COUNT 1.8 /CUMM (1.2-3.4); ABSOLUTE MONOCYTE COUNT 0.6 /CUMM (0.10-0.60); BASOPHIL % 0.9 % (0.0-2.0); EOSINOPHIL % 10.4 % (0-5); GRANULOCYTE % 52.1 % (42.2-75.2); HEMATOCRIT 22.9 % (37-47); MEAN CORPUSCULAR HGB 29.6 PG (27.0-31.0); MEAN CORPUSCULAR HGB CONC 32.7 G/DL (33.0-37.0); MEAN CORPUSCULAR VOLUME 90.5 FL (81.0-99.0); MEAN PLATELET VOLUME 8.6 FL (7.4-10.4); PLATELET COUNT 255 /CUMM (130-400); RBC DISTRIBUTION WIDTH 18.4 % (11.5-14.5); RED BLOOD CELL CT 2.53 /CUMM (4.20-5.40); WHITE BLOOD CELL COUNT 6.6 /CUMM (4.8-10.8)
[2016-12-23] VITALS: BP 106/60
[2016-12-23 01:44] VITALS: BP 120/84
[2016-12-23 04:00] VITALS: BP 142/70
[2016-12-23 05:14] LABS: ABSOLUTE BASOPHIL COUNT 0.1 /CUMM (0.0-0.2); ABSOLUTE EOSINOPHIL COUNT 0.8 /CUMM (0.0-0.7); ABSOLUTE GRANULOCYTE CT 3.5 /CUMM (1.4-6.5); ABSOLUTE LYMPH COUNT 2.2 /CUMM (1.2-3.4); ABSOLUTE MONOCYTE COUNT 0.6 /CUMM (0.10-0.60); EOSINOPHIL % 11.2 % (0-5); HEMATOCRIT 21.5 % (37-47); MEAN CORPUSCULAR HGB 29.9 PG (27.0-31.0); MEAN CORPUSCULAR HGB CONC 33.1 G/DL (33.0-37.0); MEAN CORPUSCULAR VOLUME 90.3 FL (81.0-99.0); MEAN PLATELET VOLUME 8.2 FL (7.4-10.4); PLATELET COUNT 246 /CUMM (130-400); RBC DISTRIBUTION WIDTH 18.3 % (11.5-14.5); RED BLOOD CELL CT 2.38 /CUMM (4.20-5.40); WHITE BLOOD CELL COUNT 7.2 /CUMM (4.8-10.8)
--- NOTE | 2016-12-23 07:28 | PN- Housestaff ---
JOSIAH COTA,[facility] 12/23/16 0728: Subjective Follow-up For: Acute blood loss anemia secondary to GI bleed Hypertension Subjective: Patient seen and examined this morning. She was lying in bed in no acute distress, continues to complain of pain in in her abdomen. As been afebrile, Blood pressure systolic ranging between 120-140, remains on hydralazine, labetalol, amlodipine, clonidine patch. Did not have any repeat episodes of hematemesis or bright red blood per rectum. Yesterday Blood transfusion was held as she was fluid overloaded, repeat H&H improved to some 0.1. Patient did not have any repeat episodes of hematemesis or BRBPR. Patient nothing by mouth for endoscopy today. Review of Systems Constitutional: Denies: chills, fever. Cardiovascular: Denies: chest pain, palpitations. Respiratory: Denies: cough, hemoptysis, short of breath, sputum production. Gastrointestinal: Reports: abdominal pain. Denies: constipation, diarrhea, nausea, vomiting. Objective Last 24 Hrs of Vital Signs/I&O Vital Signs Date Time Temp Pulse Resp B/P Pulse O2 O2 Flow FiO2 Ox Delivery Rate 12/23 0400 97.8 70 22 142/70 94 Room Air 12/23 0144 67 20 120/84 97 Room Air 12/23 0000 Room Air 12/23 0000 99.0 65 22 106/60 96 Room Air 12/22 2307 Room Air 12/22 2229 77 18 152/70 12/22 2229 77 152/70 12/22 1623 69 142/76 12/22 1622 69 142/76 12/22 1600 96 Room Air Room Air 12/22 1600 99.4 66 20 118/78 96 Room Air Room Air 12/22 0932 68 172/101 12/22 0932 68 172/101 12/22 0931 68 172/101 12/22 0931 68 172/101 Intake & Output 12/23 1600 12/23 0800 12/23 0000 Intake Total 2074 4540 Output Total 1974 4900 Balance 100 -360 Intake, 1999 4000 Dialysate Intake, IV 0 Intake, Oral 75 540 Number 0 Bowel Movements Output, 1974 4900 Dialysate Output, 0 Emesis Output, Urine 0 Patient 81.817 kg Weight Physical Exam General Appearance: Alert, Oriented X3, Cooperative, No Acute Distress Cardiovascular: Regular Rate, Normal S1, Normal S2, No Murmurs Lungs: Clear to Auscultation, Normal Air Movement Abdomen: Normal Bowel Sounds, Soft, tender in rlq Extremities: No Clubbing, No Cyanosis, b/l LLE edema Current Medications: Current Medications Sig/Bryan Start time Last Medication Dose Route Stop Time Status Admin Alprazolam 0.5 MG DAILY NEEDED 12/21 1730 AC 12/22 PO 12/28 1729 2227 Amlodipine Besylate 10 MG DAILY 12/22 1000 AC 12/22 PO 0932 Calcium Carbonate 1,250 MG BID 12/21 2200 AC 12/22 PO 2229 Clonidine 2 PAT Q168 12/22 1000 AC 12/22 TOP 1623 Hydralazine HCl 100 MG TID 12/21 2200 AC 12/22 PO 2229 Hydromorphone HCl 1 MG Q4-6 PRN PRN 12/22 1345 AC 12/23 IV 0648 Hydromorphone HCl 2 MG ONCE PRN 12/21 1830 AC 12/21 IV 1838 Hydromorphone HCl 1 MG Q6P PRN 12/21 1830 DC 12/22 IV 0932 Labetalol HCl 300 MG BID 12/21 2200 AC 12/22 PO 2229 Losartan Potassium 100 MG DAILY 12/22 1000 AC 12/22 PO 0931 Ondansetron HCl 4 MG ONCE ONE 12/23 0400 DC 12/23 IV 12/23 0401 0401 Pantoprazole Sodium 40 MG BID 12/21 2200 AC 12/22 IV 2228 Last 24 Hrs of Lab/Ashwin Results Last 24 Hrs of Labs/Mics: Laboratory Tests 12/23/16 0450: Anion Gap 8, Estimated GFR 4 L, Glucose 85, Calcium 7.4 L, Phosphorus 5.7 H, Magnesium 1.5 L, Total Bilirubin 0.3, AST 19, ALT 40, Albumin 2.5 L, CBC w Diff NO MAN DIFF REQ, RBC 2.38 L, MCV 90.3, MCH 29.9, RDW 18.3 H, MPV 8.2, Gran % 49.0, Lymphocytes % 30.0, Monocytes % 8.8, Eosinophils % 11.2 H, Basophils % 1.0, Absolute Granulocytes 3.5, Absolute Lymphocytes 2.2, Absolute Monocytes 0.6, Absolute Eosinophils 0.8, Absolute Basophils 0.1, PUBS MCHC 33.1 12/22/16 1800: CBC w Diff NO MAN DIFF REQ, RBC 2.53 L, MCV 90.5, MCH 29.6, RDW 18.4 H, MPV 8.6, Gran % 52.1, Lymphocytes % 27.7, Monocytes % 8.9, Eosinophils % 10.4 H, Basophils % 0.9, Absolute Granulocytes 3.5, Absolute Lymphocytes 1.8, Absolute Monocytes 0.6, Absolute Eosinophils 0.7, Absolute Basophils 0.1, PUBS MCHC 32.7 L 12/22/16 1230: Lymphocytes 14, % Normal PMNs 1, [facility] Hemat[facility] Test 83, Fluid WBC 8 H, Fld Total RBCs Counted 4 H Microbiology 12/22 1230 BODY FLUID: Body Fluid Culture - RECD 12/22 1230 BODY FLUID: Gram Stain - RECD Assessment/Plan Assessment: This is a 31-year-old lady with a history of ESRD on peritoneal dialysis, hypertension, hypertensive urgency, basal ganglia hemorrhage, recent admission at [facility] just discharged on the presents with a chief complaint of bright red blood per rectum. She stated that she wasn't feeling well over the weekend and on Wednesday she went to see her dialysis nurse. They did a CBC which was suggestive of a low H&H, subsequently she came to the emergency room where her H&H was found to be normal. At the time the CAT scan of the abdomen and pelvis was also normal. States that since she has been home she has been having bright blood per rectum. Denied any chest pain, shortness of breath, nausea, vomiting, diarrhea fevers or chills. Her only complaint upon presentation was abdominal pain and 1 episode of hematemesis. Also, her dialysis nurse did drain some peritoneal fluid and sent it out for evaluation, for suspected peritonitis, they also gave her 1 dose of peritoneal vancomycin. Vitals upon presentation temperature 98.6, pulse 80, respiratory rate 20, blood pressure 162/81, satting in the 90s on room air Pertinent labs H&H 6.5 and 19.6 upon presentation, BUN and creatinine 52 and 10.5 She's currently being managed for the following conditions. Acute blood loss anemia second to GI bleed: -H&H upon presentation was 6.5 and and can 19.6, she endorses having abdominal pain, an episode of hematemesis along with bright red blood per rectum. Yesterday, she started receiving blood transfusion during which she was reported to have high blood pressure, there was concern off transfusion reaction, blood first transfusion was immediately stopped, but transfusion workup was found to be negative afterwards. -Repeat H&H today was 6.9, secondary to fluid overload, nephrology recommended not to transfuse the patient at this point, will continue to monitor H&H every 8 hours, patient did not have any repeat episodes of hematemesis or bright red per rectum, repeat cbc today 7.1, goal Hgb>7. -GI on board, patient kept NPO for endoscopy today. -We'll continue GI prophylaxis with Protonix 40 mg twice a day, -We'll maintain 2 large IV at all times and monitor vitals closely. Hypertension: Blood pressure monitoring closely, SBP ranging btw 120-140. Continue labetalol, losartan, amlodipine, clonidine patch. Diet: Patient currently nothing by mouth for endoscopy today. -DVT prophylaxis with Alps Pain pathway Patient is full code Problem List: 1. Acute blood loss anemia 2. Abdominal pain Pain Ratin Pain Location: Abdomen Pain Goal: Remain pain free Pain Plan: DIlaudid Tomorrow's Labs & Rationales: ICU bundle for lytes monitoring cbc for H&H monitoring in setting of GI bleed MARKEL SON 12/23/16 1023: Attending MD Review Statement Attending Statement Attending MD Statement: examined this patient, discuss w/resident/PA/HEARING AID SPECIALIST, agreed w/resident/PA/HEARING AID SPECIALIST, discussed with family, reviewed EMR data (avail), discussed with nursing, discussed with case mgmt, reviewed images Attending Assessment/Plan: Assessment- 1. Acute blood loss anemia 2/2 gi bleed. 2. ESRD on peritoneal dialysis 3. Hx of TIA/hemorrhagic stroke. 4. Recent hospitilization d/c on 12/19, for hypertensive urgency 5. Hypertension accelerated 6 anemia mulitfacotiral chronic kidney disease, h/o epogen in past Vitals per protocol protonix 40 mg BID, f/u GI EGD/colon Nephrology for PD plan Continue PO home meds for htn DVT ppx with ALPS full code. plan of care d/wed patient
[2016-12-23 08:00] VITALS: BP 138/70
--- NOTE | 2016-12-23 10:04 | Transfer of Care Summary ---
Hospital Course Course Hospital Course: This is a 31-year-old lady with a history of ESRD on peritoneal dialysis, hypertension, hypertensive urgency, basal ganglia hemorrhage, recent admission at [facility] just discharged on the presents with a chief complaint of bright red blood per rectum. She stated that she wasn't feeling well over the weekend and on Wednesday she went to see her dialysis nurse. They did a CBC which was suggestive of a low H&H, subsequently she came to the emergency room where her H&H was found to be normal. At the time the CAT scan of the abdomen and pelvis was also normal. States that since she has been home she has been having bright blood per rectum. Denied any chest pain, shortness of breath, nausea, vomiting, diarrhea fevers or chills. Her only complaint upon presentation was abdominal pain and 1 episode of hematemesis. Also, her dialysis nurse did drain some peritoneal fluid and sent it out for evaluation, for suspected peritonitis, they also gave her 1 dose of peritoneal vancomycin. Vitals upon presentation temperature 98.6, pulse 80, respiratory rate 20, blood pressure 162/81, satting in the 90s on room air Pertinent labs H&H 6.5 and 19.6 upon presentation, BUN and creatinine 52 and 10.5 She was managed for the following conditions. Acute blood loss anemia second to GI bleed: -H&H upon presentation was 6.5 and and can 19.6, she endorses having abdominal pain, an episode of hematemesis along with bright red blood per rectum. (12/21), she started receiving blood transfusion during which she was reported to have high blood pressure, there was concern of transfusion reaction, blood first transfusion was immediately stopped, but transfusion workup was found to be negative afterwards. -Repeat H&H yesterday was 6.9, secondary to fluid overload, nephrology recommended not to transfuse the patient at that point, patient did not have any repeat episodes of hematemesis or bright red per rectum, repeat cbc today 7.1, goal Hgb>7. -GI on board, patient kept NPO for endoscopy today. -Continue GI prophylaxis with Protonix 40 mg twice a day, -Maintain 2 large IV at all times and monitor vitals closely. Hypertension: Blood pressure monitoring closely, SBP ranging btw 120-140. Continue labetalol, losartan, amlodipine, clonidine patch. Diet: Patient currently nothing by mouth for endoscopy today. -DVT prophylaxis with Alps Pain pathway Patient is full code Complications: none Assessment/Plan: .
--- NOTE | 2016-12-23 10:24 | PN- Nephrology ---
Assessment/Plan Assessment: End-stage renal disease: Stable. Continue 5 exchanges/day, using all 2.5% dextrose exchanges. Anemia: Acute anemia due to GI bleed. She has underlying end-stage renal disease with chronic anemia however the current presentation is an acute anemia due to GIB. Third dose of 200 mg of Venofer today (dose 3 of 5). No due for epogen until next week. No need transfusion currently, H/H stable. abd pain: EGD today to eval for P.U.D. Pd fluid cell count negative for peritonitis Hypertension: well controlled in hospital Suggestion: continue 5 exchanges/day of 2.5% dextrose PD solution Venofer 200 mg IV qday x5 days (dose 3 of 5 today) No need transfusion Subjective Subjective: No acute events NPO for EGD Hb stable at 7.1. Review of Systems: still chronic flank pain, upper abd pain Objective Vital Signs and I&Os Vital Signs Date Time Temp Pulse Resp B/P Pulse O2 O2 Flow FiO2 Ox Delivery Rate 12/23 0911 68 130/78 12/23 0910 68 130/78 12/23 0910 68 130/78 12/23 0909 68 130/78 12/23 0400 97.8 70 22 142/70 94 Room Air 12/23 0144 67 20 120/84 97 Room Air 12/23 0000 Room Air 12/23 0000 99.0 65 22 106/60 96 Room Air 12/22 2307 Room Air 12/22 2229 77 18 152/70 12/22 2229 77 152/70 12/22 1623 69 142/76 12/22 1622 69 142/76 12/22 1600 96 Room Air Room Air 12/22 1600 99.4 66 20 118/78 96 Room Air Room Air Intake & Output 12/23 1600 12/23 0400 12/22 1600 12/22 0400 12/21 1600 12/21 0400 Intake Total 2074 4540 640 890 Output Total 1974 4399 1600 500 Balance 100 140 -960 390 Intake, Blood 120 Product Intake, 1999 4000 Dialysate Intake, IV 0 20 Intake, Oral 75 540 640 750 Number 0 1 Bowel Movements Output, 1974 4399 1600 500 Dialysate Output, 0 Emesis Output, Urine 0 Patient 180 lb 160 lb 160 lb Weight Physical Exam: General: NAD, A+O x3. HEENT: NC/AT. No icterus.+conj. pallor Neck: negative for BRODIE, JVD CV: RRR, no m/r/g Pulm: CTAB, no rales Abd: soft, NT/ND, negative renal bruits + small umbilical hernia Lower Ext: neg edema or chronic venous changes Upper Ext: no AVFs or AVGs Back: negative for CVA tenderness Neuro: neg tremor, asterixis Skin: no rash, jaundice : no gaston catheter Current Medications: Current Medications Sig/Bryan Start time Last Medication Dose Route Stop Time Status Admin Alprazolam 0.5 MG DAILY NEEDED 12/21 1730 AC 12/22 PO 12/28 1729 2227 Amlodipine Besylate 10 MG DAILY 12/22 1000 AC 12/23 PO 0909 Calcium Carbonate 1,250 MG BID 12/21 2200 AC 12/23 PO 0912 Clonidine 2 PAT Q168 12/22 1000 AC 12/22 TOP 1623 Hydralazine HCl 100 MG TID 12/21 2200 AC 12/23 PO 0910 Hydromorphone HCl 1 MG Q4-6 PRN PRN 12/22 1345 AC 12/23 IV 0648 Hydromorphone HCl 2 MG ONCE PRN 12/21 1830 AC 12/21 IV 1838 Hydromorphone HCl 1 MG Q6P PRN 12/21 1830 DC 12/22 IV 0932 Labetalol HCl 300 MG BID 12/21 2200 AC 12/23 PO 0910 Losartan Potassium 100 MG DAILY 12/22 1000 AC 12/23 PO 0911 Ondansetron HCl 4 MG ONCE ONE 12/23 0400 DC 12/23 IV 12/23 0401 0401 Pantoprazole Sodium 40 MG BID 12/21 2200 AC 12/23 IV 0911 Results Pertinent Lab Results: Laboratory Tests 12/23 12/22 0450 1800 Chemistry Sodium (137 - 145 mmol/L) 129 L Potassium (3.5 - 5.1 mmol/L) 4.1 Chloride (98 - 107 mmol/L) 93 L Carbon Dioxide (22 - 30 mmol/L) 29 Anion Gap (5 - 16) 8 BUN (7 - 17 mg/dL) 45 H Creatinine (0.5 - 1.0 mg/dL) 10.5 *H Estimated GFR (>60 ml/min) 4 L Glucose (65 - 99 mg/dL) 85 Calcium (8.4 - 10.2 mg/dL) 7.4 L Phosphorus (2.5 - 4.5 mg/dL) 5.7 H Magnesium (1.6 - 2.3 mg/dL) 1.5 L Total Bilirubin (0.2 - 1.3 mg/dL) 0.3 AST (14 - 36 U/L) 19 ALT (9 - 52 U/L) 40 Albumin (3.5 - 5.0 g/dL) 2.5 L Total Beta HCG (NEGATIVE) NEGATIVE Hematology CBC w Diff NO MAN DIFF REQ NO MAN DIFF REQ WBC (4.8 - 10.8 /CUMM) 7.2 6.6 RBC (4.20 - 5.40 /CUMM) 2.38 L 2.53 L Hgb (12.0 - 16.0 G/DL) 7.1 *L 7.5 L Hct (37 - 47 %) 21.5 L 22.9 L MCV (81.0 - 99.0 FL) 90.3 90.5 MCH (27.0 - 31.0 PG) 29.9 29.6 RDW (11.5 - 14.5 %) 18.3 H 18.4 H Plt Count (130 - 400 /CUMM) 246 255 MPV (7.4 - 10.4 FL) 8.2 8.6 Gran % (42.2 - 75.2 %) 49.0 52.1 Lymphocytes % (20.5 - 51.1 %) 30.0 27.7 Monocytes % (1.7 - 9.3 %) 8.8 8.9 Eosinophils % (0 - 5 %) 11.2 H 10.4 H Basophils % (0.0 - 2.0 %) 1.0 0.9 Absolute Granulocytes (1.4 - 6.5 /CUMM) 3.5 3.5 Absolute Lymphocytes (1.2 - 3.4 /CUMM) 2.2 1.8 Absolute Monocytes (0.10 - 0.60 /CUMM) 0.6 0.6 Absolute Eosinophils (0.0 - 0.7 /CUMM) 0.8 0.7 Absolute Basophils (0.0 - 0.2 /CUMM) 0.1 0.1 PUBS MCHC (33.0 - 37.0 G/DL) 33.1 32.7 L 12/22 12/22 12/22 1230 0625 0240 Chemistry Sodium (137 - 145 mmol/L) 133 L Potassium (3.5 - 5.1 mmol/L) 4.6 Chloride (98 - 107 mmol/L) 94 L Carbon Dioxide (22 - 30 mmol/L) 26 Anion Gap (5 - 16) 13 BUN (7 - 17 mg/dL) 53 H Creatinine (0.5 - 1.0 mg/dL) 10.8 *H Estimated GFR (>60 ml/min) 4 L Glucose (65 - 99 mg/dL) 79 Lactic Acid (0.7 - 2.1 mmol/L) 0.8 Calcium (8.4 - 10.2 mg/dL) 7.9 L Phosphorus (2.5 - 4.5 mg/dL) 5.4 H Magnesium (1.6 - 2.3 mg/dL) 1.7 Total Bilirubin (0.2 - 1.3 mg/dL) 0.5 AST (14 - 36 U/L) 25 ALT (9 - 52 U/L) 42 Troponin I (< 0.11 ng/ml) 0.02 Albumin (3.5 - 5.0 g/dL) 2.9 L Hematology CBC w Diff NO MAN DIFF REQ WBC (4.8 - 10.8 /CUMM) 7.2 RBC (4.20 - 5.40 /CUMM) 2.30 L Hgb (12.0 - 16.0 G/DL) 6.9 *L Hct (37 - 47 %) 20.8 L MCV (81.0 - 99.0 FL) 90.2 MCH (27.0 - 31.0 PG) 29.8 RDW (11.5 - 14.5 %) 18.2 H Plt Count (130 - 400 /CUMM) 239 MPV (7.4 - 10.4 FL) 8.3 Gran % (42.2 - 75.2 %) 50.3 Lymphocytes % (20.5 - 51.1 %) 29.2 Monocytes % (1.7 - 9.3 %) 9.4 H Eosinophils % (0 - 5 %) 10.0 H Basophils % (0.0 - 2.0 %) 1.1 Absolute Granulocytes (1.4 - 6.5 /CUMM) 3.6 Absolute Lymphocytes (1.2 - 3.4 /CUMM) 2.1 Lymphocytes (%) 14 Absolute Monocytes (0.10 - 0.60 /CUMM) 0.7 H Absolute Eosinophils (0.0 - 0.7 /CUMM) 0.7 Absolute Basophils (0.0 - 0.2 /CUMM) 0.1 % Normal PMNs (%) 1 PUBS MCHC (33.0 - 37.0 G/DL) 33.0 Misc Hematology Test (%) 83 Other Body Source Fluid WBC (0 - 5 /CUMM) 8 H Fld Total RBCs Counted (0 /CUMM) 4 H 12/21 1501 Chemistry Sodium (137 - 145 mmol/L) 132 L Potassium (3.5 - 5.1 mmol/L) 4.5 Chloride (98 - 107 mmol/L) 94 L Carbon Dioxide (22 - 30 mmol/L) 30 Anion Gap (5 - 16) 9 BUN (7 - 17 mg/dL) 52 H Creatinine (0.5 - 1.0 mg/dL) 10.5 *H Estimated GFR (>60 ml/min) 4 L BUN/Creatinine Ratio (7 - 25 %) 5.0 L Glucose (65 - 99 mg/dL) 95 Lactic Acid (0.7 - 2.1 mmol/L) 0.9 Calcium (8.4 - 10.2 mg/dL) 8.4 Total Bilirubin (0.2 - 1.3 mg/dL) 0.4 AST (14 - 36 U/L) 20 ALT (9 - 52 U/L) 36 Alkaline Phosphatase (<127 U/L) 84 Total Protein (6.3 - 8.2 g/dL) 5.4 L Albumin (3.5 - 5.0 g/dL) 3.0 L Globulin (1.9 - 4.2 gm/dL) 2.4 Albumin/Globulin Ratio (1.1 - 2.2 %) 1.3 Coagulation PT (9.4 - 12.5 SEC) 11.9 INR (0.90 - 1.19) 1.13 Hematology CBC w Diff NO MAN DIFF REQ WBC (4.8 - 10.8 /CUMM) 7.3 RBC (4.20 - 5.40 /CUMM) 2.19 L Hgb (12.0 - 16.0 G/DL) 6.5 *L Hct (37 - 47 %) 19.6 *L MCV (81.0 - 99.0 FL) 89.3 MCH (27.0 - 31.0 PG) 29.5 RDW (11.5 - 14.5 %) 19.8 H Plt Count (130 - 400 /CUMM) 282 MPV (7.4 - 10.4 FL) 7.8 Gran % (42.2 - 75.2 %) 61.5 Lymphocytes % (20.5 - 51.1 %) 22.6 Monocytes % (1.7 - 9.3 %) 8.9 Eosinophils % (0 - 5 %) 6.2 H Basophils % (0.0 - 2.0 %) 0.8 Absolute Granulocytes (1.4 - 6.5 /CUMM) 4.5 Absolute Lymphocytes (1.2 - 3.4 /CUMM) 1.6 Absolute Monocytes (0.10 - 0.60 /CUMM) 0.6 Absolute Eosinophils (0.0 - 0.7 /CUMM) 0.5 Absolute Basophils (0.0 - 0.2 /CUMM) 0.1 PUBS MCHC (33.0 - 37.0 G/DL) 33.0
--- NOTE | 2016-12-23 11:23 | Patient Discharge Instructions ---
Discharge Instructions General Discharge Information You were seen/treated for: Acute GI bleed and HTN Special Instructions: Please follow up with your PCP upon discharge. Please follow up with your GI doctor upon discharge. Please continue regular peritoneal dialysis as routine. Please continue to monitor your BP at home daily. Diet Continue normal diet: No Recommended Diet: Heart Healthy Activity Full Activity/No Limits: No Activity Self Limited: Yes Acute Coronary Syndrome Inclusion Criteria At DC or during hospital stay patient has or had the following: ACS DIAGNOSIS No Discharge Core Measures Meds if any: Prescribed or Continued at Discharge Meds if any: NOT Prescribed or Continued at Discharge Congestive Heart Failure Inclusion Criteria At DC or during hospital stay patient has or had the following: CHF DIAGNOSIS No Discharge Core Measures Meds if any: Prescribed or Continued at Discharge Meds if any: NOT Prescribed or Continued at Discharge Cerebrovascular accident Inclusion Criteria At DC or during hospital stay patient has or had the following: CVA/TIA Diagnosis No Discharge Core Measures Meds if any: Prescribed or Continued at Discharge Antithrombotic No Meds if any: NOT Prescribed or Continued at Discharge Venous thromboembolism Inclusion Criteria VTE Diagnosis No VTE Type NONE VTE Confirmed by (Test) NONE Discharge Core Measures - Per Current guidelines, there needs to be overlap - treatment for the first 5 days of Warfarin therapy. - If discharged on Warfarin prior to 5 days of - overlap therapy, the patient will need to be - assessed for post discharge needs including - *Post discharge parental anticoagulation - *Warfarin and/or parental anticoagulation education - *Follow up date to check INR post discharge At least 5 days overlap therapy as Inpatient No Meds if any: Prescribed or Continued at Discharge Note: Overlap Therapy is Warfarin and Anticoagulant Meds if any: NOT Prescribed or Continued at Discharge
--- NOTE | 2016-12-23 12:26 | Proc Note Endoscopy ---
Endoscopy Procedure Medical History: unchanged (see meditech consult) Mental Status: alert/oriented Heart/Lung Eval Prior to Sedation: within normal limits Candidate for Sedation? Yes Procedure Date: 12/23/16 Procedure Type: EGD w/biopsy Store Administrative Assistant: Luigi Mayo MD ASA Classification: III Indications: Hematemesis, anemia, abdominal pain. Instrument: diagnostic gastroscope Meds Received: MAC Patient's Tolerance: good Complications: none Extent Reached: second part of duodenum Procedure: After getting written informed consent the patient was placed in the left lateral decubitus position with pulse oximetry, cardiac monitoring, and supplemental oxygen given. A bite block was inserted and IV sedation was given until the desired effect was achieved. A high definition upper Olympus endoscope was then inserted into the mouth and advanced to the second portion of the duodenum with little difficulty. Retroflexed views and photodocumentation was obtained. Findings: Esophagus: The esophageal mucosa was grossly normal in appearance. The Z line was located at 36 cm from incisors and was mildly erythematous with 2 short erosions, but there were no strictures, ulcers, or masses appreciated. Stomach: The gastric mucosa was grossly normal in appearance. There were no ulcers, erosions, or masses appreciated. Distention and peristalsis of the stomach appeared normal. Retroflexed views revealed a very small hiatal hernia. There were some secretions in the antrum which easily washed away with saline wash. Random biopsies were obtained from the antrum and body of the stomach with cold biopsy forceps and were sent pathology further evaluation. Duodenum: The duodenal bulb was moderately erythematous and edematous, but there were no ulcers or erosions appreciated. The duodenal sweep and folds were grossly normal in appearance. There was bile appreciated throughout the second portion of the duodenum. Impression: 1. LA grade A reflux esophagitis. 2. Moderate nonerosive duodenitis status post gastric biopsies. 3. Small hiatal hernia. 4. No active bleeding appreciated. Recommendations: 1. Her diet should be advanced as tolerated. 2. Her CBCs should be followed and she should be transfused as needed to keep hemoglobin greater then 7 or as per cardiology recognitions. 3. She should avoid [id number] NSAIDs. 4. GI should be notified for any signs of overt GI bleeding. 5. She should follow up the pathology results with me as an outpatient. 6. She should follow an antireflux regimen and attempts at weight loss should be encouraged. 7. Would change her IV PPI to an oral PPI twice a day for now. 8. She should be administered antiemetics as needed for vomiting. CC: DINO COTA,ZURI; TEMI BECK
--- NOTE | 2016-12-23 15:31 | Cons- Psychiatry ---
Psychiatric Consult Date of Consult: 12/23/16 Reason for Consult: Patient expressed depressive symptoms, has requested psychiatric consult. History of Present Illness: This is a 31-year-old woman with a history of ESRD on peritoneal dialysis, CVA, hypertension, hypertensive urgency, and basal ganglia hemorrhage. Recently discharged on 12/15/2016 after a repeat admission for hypertensive urgency. Presents with a chief complaint of bright red blood per rectum. She complained of abdominal pain, and one episode of hematemesis at home. This is apparently her 15th admission since September 2014, with multiple admissions prior to that. Allergies: Coded Allergies: Iodinated Contrast Media - Oral and (Intermediate, HIVES AND SWELLING 12/21/16) morphine (Intermediate, HIVES 12/21/16) Penicillins (RASH 12/21/16) hydroxyzine (PER PT UNKNOWN 12/21/16) lisinopril (ANGIODEMA 12/21/16) LEIDA Inhibitors (ANGIODEMA 12/21/16) Current Medications: Clonidine patch, 2 patches every week. Hydromorphone 1 mg every 4-6 hours as needed. Losartan 100 mg daily. Amlodipine 10 mg daily. Gentamicin sulfate, one application 3 times daily as needed. Labetalol 300 mg twice daily. Hydralazine 100 mg 3 times daily. Calcium carbonate 1250 mg twice daily. Pantoprazole 40 mg twice daily. Past History Past Medical History Neurological: CVA (January 2013), BASAL GANGLIA lACUNAR stroke Basal ganglia hemorhage, right January 2013 Left Basal ganglia stroke September 2013 L occipital infarct acute up 6 of little stroke in March 2015. Hemorrhagic stroke in September 2013 at [facility]. In February 2013, a right basal ganglia hemorrhagic CVA. In 2012, she had been transferred to [place] and ultimately to [facility]. 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 She's a blessing." Physical Limitations (Interventions): Peritoneal dialysis Psychiatric Treatment History Psych Treatment Psychiatric Treatment No Diagnosis: Generalized anxiety disorder due to another medical condition. Rule out Mood Disorder due to another medical condition. Risk Factors: chronic/serious med cond., high anxiety/distress Substance Use/Abuse History Drug Use/Abuse Substances Used/Abused No Substance Abuse Treatment Substance Abuse Treatment Past Substance Abuse [place] No Assessment/Plan Mental Status Orientation: Current situation, Person, Place, Situation Affect: Anxious, Sad Speech: Normal Neuro-vegetative: WNL Mental Status Exam: Patient reports feeling anxiety in the context of pain. She reported anxiety 7/ 10 (with ten the worst) prior to receiving pain medication. After receiving pain medication, stated her anxiety decreased to 4/10. Denies depression, however states that she has "pretty bad, crabby moods, I take it out on my ." Denies severe mood swings, hypomanic or manic moods. Denies suicidal ideation, homicidal ideation, auditory or visual hallucinations, paranoid ideation. Speech is well articulated, goal directed, logical, average in rate, volume and tone. Cooperative. Patient appeared much more comfortable and calm after receiving IV dilaudid during our visit. Reports that she sleeps well at night. States her appetitie is fine. Lab Results: Laboratory Tests 12/23 12/22 0450 1800 Chemistry Sodium (137 - 145 mmol/L) 129 L Potassium (3.5 - 5.1 mmol/L) 4.1 Chloride (98 - 107 mmol/L) 93 L Carbon Dioxide (22 - 30 mmol/L) 29 Anion Gap (5 - 16) 8 BUN (7 - 17 mg/dL) 45 H Creatinine (0.5 - 1.0 mg/dL) 10.5 *H Estimated GFR (>60 ml/min) 4 L Glucose (65 - 99 mg/dL) 85 Calcium (8.4 - 10.2 mg/dL) 7.4 L Phosphorus (2.5 - 4.5 mg/dL) 5.7 H Magnesium (1.6 - 2.3 mg/dL) 1.5 L Total Bilirubin (0.2 - 1.3 mg/dL) 0.3 AST (14 - 36 U/L) 19 ALT (9 - 52 U/L) 40 Albumin (3.5 - 5.0 g/dL) 2.5 L Total Beta HCG (NEGATIVE) NEGATIVE Hematology CBC w Diff NO MAN DIFF REQ NO MAN DIFF REQ WBC (4.8 - 10.8 /CUMM) 7.2 6.6 RBC (4.20 - 5.40 /CUMM) 2.38 L 2.53 L Hgb (12.0 - 16.0 G/DL) 7.1 *L 7.5 L Hct (37 - 47 %) 21.5 L 22.9 L MCV (81.0 - 99.0 FL) 90.3 90.5 MCH (27.0 - 31.0 PG) 29.9 29.6 RDW (11.5 - 14.5 %) 18.3 H 18.4 H Plt Count (130 - 400 /CUMM) 246 255 MPV (7.4 - 10.4 FL) 8.2 8.6 Gran % (42.2 - 75.2 %) 49.0 52.1 Lymphocytes % (20.5 - 51.1 %) 30.0 27.7 Monocytes % (1.7 - 9.3 %) 8.8 8.9 Eosinophils % (0 - 5 %) 11.2 H 10.4 H Basophils % (0.0 - 2.0 %) 1.0 0.9 Absolute Granulocytes (1.4 - 6.5 /CUMM) 3.5 3.5 Absolute Lymphocytes (1.2 - 3.4 /CUMM) 2.2 1.8 Absolute Monocytes (0.10 - 0.60 /CUMM) 0.6 0.6 Absolute Eosinophils (0.0 - 0.7 /CUMM) 0.8 0.7 Absolute Basophils (0.0 - 0.2 /CUMM) 0.1 0.1 PUBS MCHC (33.0 - 37.0 G/DL) 33.1 32.7 L 12/22 12/22 12/22 1230 0625 0240 Chemistry Sodium (137 - 145 mmol/L) 133 L Potassium (3.5 - 5.1 mmol/L) 4.6 Chloride (98 - 107 mmol/L) 94 L Carbon Dioxide (22 - 30 mmol/L) 26 Anion Gap (5 - 16) 13 BUN (7 - 17 mg/dL) 53 H Creatinine (0.5 - 1.0 mg/dL) 10.8 *H Estimated GFR (>60 ml/min) 4 L Glucose (65 - 99 mg/dL) 79 Lactic Acid (0.7 - 2.1 mmol/L) 0.8 Calcium (8.4 - 10.2 mg/dL) 7.9 L Phosphorus (2.5 - 4.5 mg/dL) 5.4 H Magnesium (1.6 - 2.3 mg/dL) 1.7 Total Bilirubin (0.2 - 1.3 mg/dL) 0.5 AST (14 - 36 U/L) 25 ALT (9 - 52 U/L) 42 Troponin I (< 0.11 ng/ml) 0.02 Albumin (3.5 - 5.0 g/dL) 2.9 L Hematology CBC w Diff NO MAN DIFF REQ WBC (4.8 - 10.8 /CUMM) 7.2 RBC (4.20 - 5.40 /CUMM) 2.30 L Hgb (12.0 - 16.0 G/DL) 6.9 *L Hct (37 - 47 %) 20.8 L MCV (81.0 - 99.0 FL) 90.2 MCH (27.0 - 31.0 PG) 29.8 RDW (11.5 - 14.5 %) 18.2 H Plt Count (130 - 400 /CUMM) 239 MPV (7.4 - 10.4 FL) 8.3 Gran % (42.2 - 75.2 %) 50.3 Lymphocytes % (20.5 - 51.1 %) 29.2 Monocytes % (1.7 - 9.3 %) 9.4 H Eosinophils % (0 - 5 %) 10.0 H Basophils % (0.0 - 2.0 %) 1.1 Absolute Granulocytes (1.4 - 6.5 /CUMM) 3.6 Absolute Lymphocytes (1.2 - 3.4 /CUMM) 2.1 Lymphocytes (%) 14 Absolute Monocytes (0.10 - 0.60 /CUMM) 0.7 H Absolute Eosinophils (0.0 - 0.7 /CUMM) 0.7 Absolute Basophils (0.0 - 0.2 /CUMM) 0.1 % Normal PMNs (%) 1 PUBS MCHC (33.0 - 37.0 G/DL) 33.0 Misc Hematology Test (%) 83 Other Body Source Fluid WBC (0 - 5 /CUMM) 8 H Fld Total RBCs Counted (0 /CUMM) 4 H 12/21 1501 Chemistry Sodium (137 - 145 mmol/L) 132 L Potassium (3.5 - 5.1 mmol/L) 4.5 Chloride (98 - 107 mmol/L) 94 L Carbon Dioxide (22 - 30 mmol/L) 30 Anion Gap (5 - 16) 9 BUN (7 - 17 mg/dL) 52 H Creatinine (0.5 - 1.0 mg/dL) 10.5 *H Estimated GFR (>60 ml/min) 4 L BUN/Creatinine Ratio (7 - 25 %) 5.0 L Glucose (65 - 99 mg/dL) 95 Lactic Acid (0.7 - 2.1 mmol/L) 0.9 Calcium (8.4 - 10.2 mg/dL) 8.4 Total Bilirubin (0.2 - 1.3 mg/dL) 0.4 AST (14 - 36 U/L) 20 ALT (9 - 52 U/L) 36 Alkaline Phosphatase (<127 U/L) 84 Total Protein (6.3 - 8.2 g/dL) 5.4 L Albumin (3.5 - 5.0 g/dL) 3.0 L Globulin (1.9 - 4.2 gm/dL) 2.4 Albumin/Globulin Ratio (1.1 - 2.2 %) 1.3 Coagulation PT (9.4 - 12.5 SEC) 11.9 INR (0.90 - 1.19) 1.13 Hematology CBC w Diff NO MAN DIFF REQ WBC (4.8 - 10.8 /CUMM) 7.3 RBC (4.20 - 5.40 /CUMM) 2.19 L Hgb (12.0 - 16.0 G/DL) 6.5 *L Hct (37 - 47 %) 19.6 *L MCV (81.0 - 99.0 FL) 89.3 MCH (27.0 - 31.0 PG) 29.5 RDW (11.5 - 14.5 %) 19.8 H Plt Count (130 - 400 /CUMM) 282 MPV (7.4 - 10.4 FL) 7.8 Gran % (42.2 - 75.2 %) 61.5 Lymphocytes % (20.5 - 51.1 %) 22.6 Monocytes % (1.7 - 9.3 %) 8.9 Eosinophils % (0 - 5 %) 6.2 H Basophils % (0.0 - 2.0 %) 0.8 Absolute Granulocytes (1.4 - 6.5 /CUMM) 4.5 Absolute Lymphocytes (1.2 - 3.4 /CUMM) 1.6 Absolute Monocytes (0.10 - 0.60 /CUMM) 0.6 Absolute Eosinophils (0.0 - 0.7 /CUMM) 0.5 Absolute Basophils (0.0 - 0.2 /CUMM) 0.1 PUBS MCHC (33.0 - 37.0 G/DL) 33.0 Diffential Diagnosis: Generalized anxiety disorder due to another medical condition. Rule out Mood Disorder due to another medical condition. Impression: This is a 31-year-old woman with a history of ESRD on peritoneal dialysis, CVA, hypertension, hypertensive urgency, basal ganglia hemorrhage. Recently discharged on 12/15/2016 after a repeat admission for hypertensive urgency. Presents with a chief complaint of bright red blood per rectum. She complained of abdominal pain, and one episode of hematemesis at home. This is apparently her 15th admission since September 2014, with multiple admissions prior to that. By her own admission, she states that she has been an inpatient "50 times in the past 4 years." Patient has a history on non-adherence to prescribed medications. She states that she is often nauseous, and therefore is unable to take her medictions as prescribed, or she vomits soon after taking PO medications. It appears that she has poor insight into her own self care, and poor judgement. She reports often feeling irritable, however denies severe mood swings. She has a support system at home which includes her , whom she states is supportive. Her mother often visits to help the patient with her care, and the care of the patient's six year old daughter. Provisional Treatment Plan: Patient states she is interested in outpatient psychiatric treatment for her irritiable moods. If possible, I suggest that she attend [facility] IOP. She states that she would be agreeable to this. She states that she has her own car, and prefers to attend IOP at [place]. I also suggested that she accept the services of visiting nurse, for help with medication adherence, and help with management of her medical problems including ESRD. 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 Psychiatric follow up as needed.
[2016-12-23 16:27] VITALS: BP 120/70
--- NOTE | 2016-12-23 19:17 | Discharge Summary ---
Visit Information Visit Dates Admission Date: 12/21/16 Discharge Date: 12/24/2016 Hospital Course Course Attending Physician: BLANCA COTA,MARKEL GILES Primary Care Physician: STANLEY COTA,[facility] Course: Patient is a 31-year-old noncompliant female with significant past medical history of End-stage renal disease on peritoneal dialysis,Chronic Anemia on Epogen, secondary hyperparathyroidism, Hypertension, history of hypertensive urgency leading to basal ganglia hemorrhage( January 2013), hyperlipidemia, mitral regurgitation, Small hiatal hernia presented with chief complaints of abdominal pain, hematemesis and bright red blood per rectum. Abdominal pain with acute blood loss anemia secondary to GI bleed * On evaluation,CT abdomen/pelvis showed moderate amount of ascites, fatty tumors dialysis catheter in place and small left pleural effusion. We started her on IV Protonix. We took opinion from gastroenterology and nephrology. * On 12/21/2016, during second unit of blood transfusion, she had an episode of very high blood pressure associated with chest pain and tachypnea.Transfusion was immediately stopped and she was transfered to ICU. Transfusion workup was negative. Her ICU course was uneventful. * On 12/23/2016, upper GI endoscopy was done which showed reflux esophagitis and jejunitis without any evidence of active bleeding. We regularly monitored her hemoglobin, which remained stable between 6.5 to 7.5. She remained hemodynamically stable without any evidence of hematemesis/GI bleed. We started her on Cap Omeprazole 20mg BID and discharged her with advice to follow-up with the PCP/electroencephalograph technician/GI for further management.We also advised to f/u biopsy results with GI as o/p in 2 weeks. Hypertension * She had one episode of hypertensive urgency, which was treated by IV hydralazine 5 mgs x 1 dose. Afterwards, her blood pressure remained stable and we discharged her with advice to continue labetalol, losartan, amlodipine, clonidine patch in home doses. Chronic pain * She is having very low threshold for the pain and even needed every 4 hourly IV Dilaudid and Percocet. We will try to enroll her with pain clinic for further management of pain Allergies: Coded Allergies: Iodinated Contrast Media - Oral and (Intermediate, HIVES AND SWELLING 12/21/16) morphine (Intermediate, HIVES 12/21/16) Penicillins (RASH 12/21/16) hydroxyzine (PER PT UNKNOWN 12/21/16) lisinopril (ANGIODEMA 12/21/16) LEIDA Inhibitors (ANGIODEMA 12/21/16) Significant Procedures: Upper GI endoscopy - 1. LA grade A reflux esophagitis. 2. Moderate nonerosive duodenitis status post gastric biopsies. 3. Small hiatal hernia. 4. No active bleeding appreciated. Disposition Summary Disposition Principal Diagnosis: Acute GI bleeding secondary to gastritis/duodenitis Additional Diagnosis: End-stage renal disease on peritoneal dialysis Secondary hyperparathyroidism Moderate ascites Chronic Anemia on Epogen Hypertension, history of hypertensive urgency leading to basal ganglia hemorrhage Small hiatal hernia Fat-containing periumbilical hernia Discharge Disposition: home health services Discharge Instructions General Discharge Information Code Status: Full Code Patient's Diet: Renal dialysis diet Patient's Activity: As tolerated Follow-Up Instructions/Appts: Please follow-up with your PCP within a week of discharge Please be compliant for regular dialysis She may need outpatient psychiatric treatment for irritable moods. It is advised that that she can attend, [facility]. Medications at Discharge Discharge Medications: Stop taking the following medications: Aspirin (Aspirin*) 81 MG TAB.CHEW ORAL DAILY Qty = 60 Continue taking these medications: Amlodipine Besylate (Amlodipine Besylate) 10 MG TABLET 1 Tablet ORAL DAILY Comments: Last Taken: 12/24/16 Time: 1000 AM Epoetin Carlos (Epogen) 10,000 UNIT/ML VIAL 10,000 Unit Inject into fatty tissue EVERY 2 WEEKS Comments: NOT GIVEN IN HOSPITAL Losartan (Cozaar) 100 MG TABLET 1 Tablet ORAL DAILY Comments: Last Taken: 12/24/16 Time: 1000 AM Alprazolam (Xanax) 0.5 MG TABLET 1 Tablet ORAL DAILY NEEDED as needed for ANXIETY Comments: Last Taken: 12/23/16 Time: 1040 PM Hydralazine HCl (Hydralazine HCl) 100 MG TABLET 1 Tablet ORAL THREE TIMES DAILY Comments: Last Taken: 12/24/16 Time: 1000 AM Ondansetron HCl (Zofran) 4 MG TABLET 1 Tablet ORAL Every 6-8 Hours as Needed as needed for NAUSEA Comments: NOT GIVEN IN THE HOSPITAL Clonidine (Clonidine) 0.2 MG/24 HOUR PATCH.TDWK 1 Patch On the skin EVERY WEDNESDAY Qty = 4 Comments: Last Taken: 12/22/16 Time: 430 PM Labetalol HCl (Labetalol HCl) 100 MG TABLET 3 Tablet ORAL TWICE DAILY Qty = 30 Comments: Last Taken: 12/24/16 Time: 1000 AM Start taking the following new medications: Omeprazole (Omeprazole) 20 MG CAPSULE.DR 1 Tablet ORAL TWICE DAILY Qty = 14 No Refills Comments: Last Taken: 12/24/16 Time: 10 AM Copies To: CLARA ANGEL MD, MD Review Statement Documenting Attending: MARKEL SON MD NOT GIVEN IN THE HOSPITAL This prescription has been renewed Start taking the following new medications: Omeprazole (Omeprazole) 20 MG CAPSULE.DR 1 Tablet ORAL TWICE DAILY Qty = 14 No Refills Comments: Last Taken: 12/24/16 Time: 10 AM Copies To: CLARA ANGEL MD, MD Review Statement Documenting Attending: MARKEL SON MD
[2016-12-24] VITALS: BP 148/84
--- NOTE | 2016-12-24 08:22 | PN- Housestaff ---
Subjective Follow-up For: Anemia secondary to lower GI bleeds Abdominal pain secondary to reflux esophagitis Complaints: upper abdominal pain 07/06 Tele-Events Since Last Visit: Normal sinus rhythm, heart rate between 60 to 70, no any overnight events Subjective: Patient is seen and examined at the bedside. She was still complaining of pain in his right upper abdomen and the nausea. She denies for any chest pain, shortness of breath, constipation, diarrhea. Review of Systems Constitutional: Reports: weakness. Cardiovascular: Denies: chest pain, edema, orthopena, palpitations. Respiratory: Denies: cough, hemoptysis, orthopnea, short of breath. Gastrointestinal: Reports: abdominal pain. Denies: bloating, constipation, diarrhea, distention. Genitourinary: Denies: no symptoms. Musculoskeletal: Denies: no symptoms. Neurological/Psychological: Reports: anxiety, depressed. Objective Last 24 Hrs of Vital Signs/I&O Vital Signs Date Time Temp Pulse Resp B/P Pulse O2 O2 Flow FiO2 Ox Delivery Rate 12/24 0831 98.1 66 20 138/70 98 Room Air 12/24 0000 97.8 72 18 148/84 96 Room Air 12/23 2237 72 148/84 12/23 2237 72 148/84 12/23 1733 66 124/60 12/23 1627 98.8 66 20 120/70 96 Room Air Intake & Output 12/24 1600 12/24 0800 12/24 0000 Intake Total 250 300 Output Total 500 500 Balance -250 -200 Intake, IV 0 0 Intake, Oral 250 300 Number 0 0 Bowel Movements Output, 500 500 Dialysate Physical Exam General Appearance: Alert, Oriented X3, Mild Distress Cardiovascular: Normal S1, Normal S2 Abdomen: Soft, No Tenderness, distended, umbilical hernia Neurological: Normal Speech Extremities: No Clubbing, No Cyanosis, No Edema Vascular: Normal Pulses, Pulses Symmetrical Current Medications: Current Medications Sig/Bryan Start time Last Medication Dose Route Stop Time Status Admin Alprazolam 0.5 MG DAILY NEEDED 12/21 1730 AC 12/23 PO 12/28 1729 2238 Amlodipine Besylate 10 MG DAILY 12/22 1000 AC 12/24 PO 1003 Calcium Carbonate 1,250 MG BID 12/21 2200 AC 12/24 PO 1002 Chlorhexidine 1 GM .STK-MED ONE 12/23 1330 DC Gluconate TOP 12/23 1331 Clonidine 2 PAT Q168 12/22 1000 AC 12/22 TOP 1623 Ferric Sodium 125 MG ONE ONE 12/24 1045 DC Gluconate Complex IV 12/24 1144 Sodium Chloride 100 ML Ferric Sodium 125 MG ONE ONE 12/24 1030 CAN Gluconate Complex IV 12/24 1031 Hydralazine HCl 100 MG TID 12/21 2200 AC 12/24 PO 1003 Hydromorphone HCl 1 MG Q4P PRN 12/23 2200 AC 12/24 IV 1014 Hydromorphone HCl 0.6 MG Q4P PRN 12/23 1545 DC 12/23 IV 1544 Hydromorphone HCl 1 MG Q4-6 PRN PRN 12/22 1345 DC 12/23 IV 1442 Hydromorphone HCl 2 MG ONCE PRN 12/21 1830 DC 12/21 IV 1838 Labetalol HCl 300 MG BID 12/21 2200 AC 12/24 PO 1003 Losartan Potassium 100 MG DAILY 12/22 1000 AC 12/24 PO 1003 Omeprazole 20 MG BID 12/23 1533 AC 12/24 PO 1002 Ondansetron HCl 4 MG ONCE ONE 12/24 1030 DC IV 12/24 1031 Ondansetron HCl 4 MG ONCE ONE 12/23 2014 DC 12/23 IV 12/23 2016 194 Pantoprazole Sodium 40 MG BID 12/21 220 DC 12/23 IV 0911 Last 24 Hrs of Lab/Ashwin Results Last 24 Hrs of Labs/Mics: Laboratory Tests 12/24/16 0610: Anion Gap 7, Estimated GFR 4 L, Glucose 74, Calcium 7.5 L, Phosphorus 5.6 H, Magnesium 1.7, Total Bilirubin 0.3, AST 16, ALT 40, Albumin 2.5 L, CBC w Diff NO MAN DIFF REQ, RBC 2.54 L, MCV 90.9, MCH 29.5, RDW 18.7 H, MPV 8.8, Gran % 55.5, Lymphocytes % 27.8, Monocytes % 6.9, Eosinophils % 8.8 H, Basophils % 1.0 , Absolute Granulocytes 4.3, Absolute Lymphocytes 2.2, Absolute Monocytes 0.5, Absolute Eosinophils 0.7, Absolute Basophils 0.1, PUBS MCHC 32.4 L 12/23/16 1636: CBC w Diff Cancelled, WBC Cancelled, RBC Cancelled, Hgb Cancelled, Hct Cancelled , MCV Cancelled, MCH Cancelled, RDW Cancelled, Plt Count Cancelled, MPV Cancelled, PUBS MCHC Cancelled Assessment/Plan Assessment: This is a 31-year-old lady with a history of ESRD on peritoneal dialysis, hypertension, hypertensive urgency, basal ganglia hemorrhage, recent admission at [facility] just discharged on the presents with a chief complaint of bright red blood per rectum. She stated that she wasn't feeling well over the weekend and on Wednesday she went to see her dialysis nurse. They did a CBC which was suggestive of a low H&H, subsequently she came to the emergency room where her H&H was found to be normal. At the time the CAT scan of the abdomen and pelvis was also normal. States that since she has been home she has been having bright blood per rectum. Denied any chest pain, shortness of breath, nausea, vomiting, diarrhea fevers or chills. Her only complaint upon presentation was abdominal pain and 1 episode of hematemesis. Also, her dialysis nurse did drain some peritoneal fluid and sent it out for evaluation, for suspected peritonitis, they also gave her 1 dose of peritoneal vancomycin. Plan - Discharge today Acute blood loss anemia second to GI bleed: * Endoscopy was done on 12/23/2016 which showed evidence of reflux esophagitis and jejunitis. * We started her on tab Omeprazole 20 mgs twice a day Hypertension * Blood pressure is stable. Today blood pressure is 138/70 * We will continue labetalol, losartan, amlodipine, clonidine patch. Diet -renal dialysis diet DVT prophylaxis -ALP S CODE STATUS -full code Problem List: 1. ESRD (end stage renal disease) on dialysis 2. Peritoneal dialysis 3. Elevated blood pressure 4. Umbilical hernia 5. Abdominal pain 6. Duodenitis 7. Reflux esophagitis Pain Ratin Pain Location: Right upper abdomen Pain Goal: Remain pain free Pain Plan: [id number] Tomorrow's Labs & Rationales: Not required as patient is discharged DVT/Prophylaxis: mechanical
[2016-12-24 08:25] LABS: ABSOLUTE BASOPHIL COUNT 0.1 /CUMM (0.0-0.2); ABSOLUTE EOSINOPHIL COUNT 0.7 /CUMM (0.0-0.7); ABSOLUTE GRANULOCYTE CT 4.3 /CUMM (1.4-6.5); ABSOLUTE LYMPH COUNT 2.2 /CUMM (1.2-3.4); ABSOLUTE MONOCYTE COUNT 0.5 /CUMM (0.10-0.60); EOSINOPHIL % 8.8 % (0-5); GRANULOCYTE % 55.5 % (42.2-75.2); HEMATOCRIT 23.1 % (37-47); MEAN CORPUSCULAR HGB 29.5 PG (27.0-31.0); MEAN CORPUSCULAR HGB CONC 32.4 G/DL (33.0-37.0); MEAN CORPUSCULAR VOLUME 90.9 FL (81.0-99.0); MEAN PLATELET VOLUME 8.8 FL (7.4-10.4); PLATELET COUNT 288 /CUMM (130-400); RBC DISTRIBUTION WIDTH 18.7 % (11.5-14.5); RED BLOOD CELL CT 2.54 /CUMM (4.20-5.40); WHITE BLOOD CELL COUNT 7.8 /CUMM (4.8-10.8)
[2016-12-24 08:31] VITALS: BP 138/70
[2016-12-24] MEDS ORDERED: ULTRAM50 M1 PO (09:22)
[2016-12-24] MEDS ORDERED: OMEPRAZOLE20 M2 PO (09:29)
--- NOTE | 2016-12-24 10:18 | PN- Nephrology ---
See Addendum Assessment/Plan Assessment: End-stage renal disease: Stable. Continue 5 exchanges/day, using all 2.5% dextrose exchanges. Anemia: Hb stable. F/up at [facility] clinic for epogen next week. gastroduodenitis: BID PPI started & to f/up GI re path of biopsy samples Hypertension: well controlled in hospital Suggestion: continue 5 exchanges/day of 2.5% dextrose PD solution Venofer 200 mg IV today No need transfusion Subjective Subjective: No acute events EGD results noted; + for esophagitis/duodenitis. No peptic ulcers no PD issues; draining well Review of Systems: no fever/chills no sob/chest pain +mild abd pain Objective Vital Signs and I&Os Vital Signs Date Time Temp Pulse Resp B/P Pulse O2 O2 Flow FiO2 Ox Delivery Rate 12/24 0831 98.1 66 20 138/70 98 Room Air 12/24 0000 97.8 72 18 148/84 96 Room Air 12/23 2237 72 148/84 12/23 2237 72 148/84 12/23 1733 66 124/60 12/23 1627 98.8 66 20 120/70 96 Room Air Intake & Output 12/24 1600 12/24 0400 12/23 1600 12/23 0400 12/22 1600 12/22 0400 Intake Total 240 802 7800 4540 640 890 Output Total 625 906 5744 4400 1600 500 Balance 50 -500 480 140 -960 390 Intake, Blood 120 Product Intake, 2000 4000 Dialysate Intake, IV 0 0 0 20 Intake, Oral 250 300 555 540 640 750 Number 0 0 0 1 Bowel Movements Output, 072 038 0509 4400 1600 500 Dialysate Output, 0 Emesis Output, Urine 0 Patient 160 lb 160 lb Weight Physical Exam: General: NAD, A+O x3. HEENT: NC/AT. No icterus.+conj. pallor Neck: negative for BRODIE, JVD CV: RRR, no m/r/g Pulm: CTAB, no rales Abd: soft, mild diffused tenderness. + small umbilical hernia Lower Ext: neg edema or chronic venous changes Neuro: neg tremor, asterixis Skin: no rash, jaundice : no gaston catheter Current Medications: Current Medications Sig/Bryan Start time Last Medication Dose Route Stop Time Status Admin Alprazolam 0.5 MG DAILY NEEDED 12/21 1730 AC 12/23 PO 12/28 1729 2238 Amlodipine Besylate 10 MG DAILY 12/22 1000 AC 12/24 PO 1003 Calcium Carbonate 1,250 MG BID 12/21 2199 AC 12/24 PO 1002 Chlorhexidine 1 GM .STK-MED ONE 12/23 1330 DC Gluconate TOP 12/23 1331 Clonidine 2 PAT Q168 12/22 1000 AC 12/22 TOP 1623 Hydralazine HCl 100 MG TID 12/21 220 AC 12/24 PO 1003 Hydromorphone HCl 1 MG Q4P PRN 12/23 2200 AC 12/24 IV 1014 Hydromorphone HCl 0.6 MG Q4P PRN 12/23 1545 DC 12/23 IV 1544 Hydromorphone HCl 1 MG Q4-6 PRN PRN 12/22 1345 DC 12/23 IV 1442 Hydromorphone HCl 2 MG ONCE PRN 12/21 1830 DC 12/21 IV 1838 Labetalol HCl 300 MG BID 12/21 220 AC 12/24 PO 1003 Losartan Potassium 100 MG DAILY 12/22 1000 AC 12/24 PO 1003 Omeprazole 20 MG BID 12/23 1533 AC 12/24 PO 1002 Ondansetron HCl 4 MG ONCE ONE 12/23 2014 DC 12/23 IV 12/24 2015 194 Pantoprazole Sodium 40 MG BID 12/21 2199 DC 12/23 IV 0911 Results Pertinent Lab Results: Laboratory Tests 12/24 12/23 0610 1636 Chemistry Sodium (137 - 145 mmol/L) 128 L Potassium (3.5 - 5.1 mmol/L) 4.5 Chloride (98 - 107 mmol/L) 92 L Carbon Dioxide (22 - 30 mmol/L) 30 Anion Gap (5 - 16) 7 BUN (7 - 17 mg/dL) 45 H Creatinine (0.5 - 1.0 mg/dL) 10.7 *H Estimated GFR (>60 ml/min) 4 L Glucose (65 - 99 mg/dL) 74 Calcium (8.4 - 10.2 mg/dL) 7.5 L Phosphorus (2.5 - 4.5 mg/dL) 5.6 H Magnesium (1.6 - 2.3 mg/dL) 1.7 Total Bilirubin (0.2 - 1.3 mg/dL) 0.3 AST (14 - 36 U/L) 16 ALT (9 - 52 U/L) 40 Albumin (3.5 - 5.0 g/dL) 2.5 L Hematology CBC w Diff NO MAN DIFF REQ Cancelled WBC (4.8 - 10.8 /CUMM) 7.8 Cancelled RBC (4.20 - 5.40 /CUMM) 2.54 L Cancelled Hgb (12.0 - 16.0 G/DL) 7.5 L Cancelled Hct (37 - 47 %) 23.1 L Cancelled MCV (81.0 - 99.0 FL) 90.9 Cancelled MCH (27.0 - 31.0 PG) 29.5 Cancelled RDW (11.5 - 14.5 %) 18.7 H Cancelled Plt Count (130 - 400 /CUMM) 288 Cancelled MPV (7.4 - 10.4 FL) 8.8 Cancelled Gran % (42.2 - 75.2 %) 55.5 Lymphocytes % (20.5 - 51.1 %) 27.8 Monocytes % (1.7 - 9.3 %) 6.9 Eosinophils % (0 - 5 %) 8.8 H Basophils % (0.0 - 2.0 %) 1.0 Absolute Granulocytes (1.4 - 6.5 /CUMM) 4.3 Absolute Lymphocytes (1.2 - 3.4 /CUMM) 2.2 Absolute Monocytes (0.10 - 0.60 /CUMM) 0.5 Absolute Eosinophils (0.0 - 0.7 /CUMM) 0.7 Absolute Basophils (0.0 - 0.2 /CUMM) 0.1 PUBS MCHC (33.0 - 37.0 G/DL) 32.4 L Cancelled 12/23 12/22 0450 1800 Chemistry Sodium (137 - 145 mmol/L) 129 L Potassium (3.5 - 5.1 mmol/L) 4.1 Chloride (98 - 107 mmol/L) 93 L Carbon Dioxide (22 - 30 mmol/L) 29 Anion Gap (5 - 16) 8 BUN (7 - 17 mg/dL) 45 H Creatinine (0.5 - 1.0 mg/dL) 10.5 *H Estimated GFR (>60 ml/min) 4 L Glucose (65 - 99 mg/dL) 85 Calcium (8.4 - 10.2 mg/dL) 7.4 L Phosphorus (2.5 - 4.5 mg/dL) 5.7 H Magnesium (1.6 - 2.3 mg/dL) 1.5 L Total Bilirubin (0.2 - 1.3 mg/dL) 0.3 AST (14 - 36 U/L) 19 ALT (9 - 52 U/L) 40 Albumin (3.5 - 5.0 g/dL) 2.5 L Total Beta HCG (NEGATIVE) NEGATIVE Hematology CBC w Diff NO MAN DIFF REQ NO MAN DIFF REQ WBC (4.8 - 10.8 /CUMM) 7.2 6.6 RBC (4.20 - 5.40 /CUMM) 2.38 L 2.53 L Hgb (12.0 - 16.0 G/DL) 7.1 *L 7.5 L Hct (37 - 47 %) 21.5 L 22.9 L MCV (81.0 - 99.0 FL) 90.3 90.5 MCH (27.0 - 31.0 PG) 29.9 29.6 RDW (11.5 - 14.5 %) 18.3 H 18.4 H Plt Count (130 - 400 /CUMM) 246 255 MPV (7.4 - 10.4 FL) 8.2 8.6 Gran % (42.2 - 75.2 %) 49.0 52.1 Lymphocytes % (20.5 - 51.1 %) 30.0 27.7 Monocytes % (1.7 - 9.3 %) 8.8 8.9 Eosinophils % (0 - 5 %) 11.2 H 10.4 H Basophils % (0.0 - 2.0 %) 1.0 0.9 Absolute Granulocytes (1.4 - 6.5 /CUMM) 3.5 3.5 Absolute Lymphocytes (1.2 - 3.4 /CUMM) 2.2 1.8 Absolute Monocytes (0.10 - 0.60 /CUMM) 0.6 0.6 Absolute Eosinophils (0.0 - 0.7 /CUMM) 0.8 0.7 Absolute Basophils (0.0 - 0.2 /CUMM) 0.1 0.1 PUBS MCHC (33.0 - 37.0 G/DL) 33.1 32.7 L 12/22 12/22 12/22 1230 0625 0240 Chemistry Sodium (137 - 145 mmol/L) 133 L Potassium (3.5 - 5.1 mmol/L) 4.6 Chloride (98 - 107 mmol/L) 94 L Carbon Dioxide (22 - 30 mmol/L) 26 Anion Gap (5 - 16) 13 BUN (7 - 17 mg/dL) 53 H Creatinine (0.5 - 1.0 mg/dL) 10.8 *H Estimated GFR (>60 ml/min) 4 L Glucose (65 - 99 mg/dL) 79 Lactic Acid (0.7 - 2.1 mmol/L) 0.8 Calcium (8.4 - 10.2 mg/dL) 7.9 L Phosphorus (2.5 - 4.5 mg/dL) 5.4 H Magnesium (1.6 - 2.3 mg/dL) 1.7 Total Bilirubin (0.2 - 1.3 mg/dL) 0.5 AST (14 - 36 U/L) 25 ALT (9 - 52 U/L) 42 Troponin I (< 0.11 ng/ml) 0.02 Albumin (3.5 - 5.0 g/dL) 2.9 L Hematology CBC w Diff NO MAN DIFF REQ WBC (4.8 - 10.8 /CUMM) 7.2 RBC (4.20 - 5.40 /CUMM) 2.30 L Hgb (12.0 - 16.0 G/DL) 6.9 *L Hct (37 - 47 %) 20.8 L MCV (81.0 - 99.0 FL) 90.2 MCH (27.0 - 31.0 PG) 29.8 RDW (11.5 - 14.5 %) 18.2 H Plt Count (130 - 400 /CUMM) 239 MPV (7.4 - 10.4 FL) 8.3 Gran % (42.2 - 75.2 %) 50.3 Lymphocytes % (20.5 - 51.1 %) 29.2 Monocytes % (1.7 - 9.3 %) 9.4 H Eosinophils % (0 - 5 %) 10.0 H Basophils % (0.0 - 2.0 %) 1.1 Absolute Granulocytes (1.4 - 6.5 /CUMM) 3.6 Absolute Lymphocytes (1.2 - 3.4 /CUMM) 2.1 Lymphocytes (%) 14 Absolute Monocytes (0.10 - 0.60 /CUMM) 0.7 H Absolute Eosinophils (0.0 - 0.7 /CUMM) 0.7 Absolute Basophils (0.0 - 0.2 /CUMM) 0.1 % Normal PMNs (%) 1 PUBS MCHC (33.0 - 37.0 G/DL) 33.0 Misc Hematology Test (%) 83 Other Body Source Fluid WBC (0 - 5 /CUMM) 8 H Fld Total RBCs Counted (0 /CUMM) 4 H 12/21 1501 Chemistry Sodium (137 - 145 mmol/L) 132 L Potassium (3.5 - 5.1 mmol/L) 4.5 Chloride (98 - 107 mmol/L) 94 L Carbon Dioxide (22 - 30 mmol/L) 30 Anion Gap (5 - 16) 9 BUN (7 - 17 mg/dL) 52 H Creatinine (0.5 - 1.0 mg/dL) 10.5 *H Estimated GFR (>60 ml/min) 4 L BUN/Creatinine Ratio (7 - 25 %) 5.0 L Glucose (65 - 99 mg/dL) 95 Lactic Acid (0.7 - 2.1 mmol/L) 0.9 Calcium (8.4 - 10.2 mg/dL) 8.4 Total Bilirubin (0.2 - 1.3 mg/dL) 0.4 AST (14 - 36 U/L) 20 ALT (9 - 52 U/L) 36 Alkaline Phosphatase (<127 U/L) 84 Total Protein (6.3 - 8.2 g/dL) 5.4 L Albumin (3.5 - 5.0 g/dL) 3.0 L Globulin (1.9 - 4.2 gm/dL) 2.4 Albumin/Globulin Ratio (1.1 - 2.2 %) 1.3 Coagulation PT (9.4 - 12.5 SEC) 11.9 INR (0.90 - 1.19) 1.13 Hematology CBC w Diff NO MAN DIFF REQ WBC (4.8 - 10.8 /CUMM) 7.3 RBC (4.20 - 5.40 /CUMM) 2.19 L Hgb (12.0 - 16.0 G/DL) 6.5 *L Hct (37 - 47 %) 19.6 *L MCV (81.0 - 99.0 FL) 89.3 MCH (27.0 - 31.0 PG) 29.5 RDW (11.5 - 14.5 %) 19.8 H Plt Count (130 - 400 /CUMM) 282 MPV (7.4 - 10.4 FL) 7.8 Gran % (42.2 - 75.2 %) 61.5 Lymphocytes % (20.5 - 51.1 %) 22.6 Monocytes % (1.7 - 9.3 %) 8.9 Eosinophils % (0 - 5 %) 6.2 H Basophils % (0.0 - 2.0 %) 0.8 Absolute Granulocytes (1.4 - 6.5 /CUMM) 4.5 Absolute Lymphocytes (1.2 - 3.4 /CUMM) 1.6 Absolute Monocytes (0.10 - 0.60 /CUMM) 0.6 Absolute Eosinophils (0.0 - 0.7 /CUMM) 0.5 Absolute Basophils (0.0 - 0.2 /CUMM) 0.1 PUBS MCHC (33.0 - 37.0 G/DL) 33.0
--- NOTE | 2016-12-24 15:33 | Incdntl Nt Psy ---
Incidental Note Notation: Met with patient today, prior to her discharge from medicine. She denied passive and active thoughts of suicidal ideation, plans and intent. She stated and also believed she will not harm herself or others. She denied homicidal ideation. She denied auditory and visual hallucinations. I asked if I could set up an IOP appointment for her. She reported that she received an IOP intake appointment from a social service director for 12/30/16 at 2PM and showed me the appoinment card. Patient is cleared from psychiatry and has appropriate outpatient follow-up.
== END 2016-12-24 13:20 ==
LOC: ENRESERVDT → ENRESERVTM → ERH 13:29 → ENPENDDIS 16:14 → ERHI 16:14 → CRI 16:14 → 1NO 16:14 → 2NA 18:08 → CRI 18:09 → 1NO 12-23 10:14
PROVIDERS: Internal Medicine; Physician Assistant Medical; Student in an Organized Health Care Education/Training Program; ADMIT Internal Medicine
DX: K21.0 Gastro-esophageal reflux disease with esophagitis (principal); K44.9 Diaphragmatic hernia without obstruction or gangrene; D62 Acute posthemorrhagic anemia; K29.80 Duodenitis without bleeding; N18.6 End stage renal disease; Z99.2 Dependence on renal dialysis; I12.0 Hypertensive chronic kidney disease with stage 5 chronic kidney disease or end stage renal disease; N25.81 Secondary hyperparathyroidism of renal origin; E78.5 Hyperlipidemia, unspecified; Z86.73 Personal history of transient ischemic attack (TIA), and cerebral infarction without residual deficits; Z86.14 Personal history of Methicillin resistant Staphylococcus aureus infection; Z79.82 Long term (current) use of aspirin
CPT/HCPCS: 87075; 36415; 74176; 82436; 86920; 88305; 88312; 93005; 93010; 96374; 96375; 96376; 99233; G0378; J0360; J1170; J1200; J2405; J3490; P9016

== ENCOUNTER 2016-12-31 20:02 | Emergency (ER) | payer OTHER ==
[~2016-12-31 20:02] MED LIST changes: +OMEPRAZOLE20 M2 PO
--- NOTE | 2016-12-31 20:37 | ED UPPER/LOWER EXTREMITY COMPL ---
History of Present Illness General Chief Complaint: Lower Extremity Problems Stated Complaint: LEFT LEG PAIN/SWELLING Source: patient Exam Limitations: no limitations Allergies Coded Allergies: Iodinated Contrast Media - Oral and (Intermediate, HIVES AND SWELLING 12/21/16) morphine (Intermediate, HIVES 12/21/16) Penicillins (RASH 12/21/16) hydroxyzine (PER PT UNKNOWN 12/21/16) lisinopril (ANGIODEMA 12/21/16) LEIDA Inhibitors (ANGIODEMA 12/21/16) Reconcile Medications Alprazolam (Xanax) 0.5 MG TABLET 1 TAB PO DAILY NEEDED PRN ANXIETY ( Reported) Amlodipine Besylate 10 MG TABLET 1 TAB PO DAILY BP (Reported) Calcium (Elemental-Fr Calcarb) (Calcium Carbonate) 500 MG/5ML ORAL.SUSP 20 ML PO BID SUPPLEMENT (Reported) Clonidine 0.2 MG/24 HOUR PATCH.TDWK 1 PAT TOP QWED BP (Reported) Epoetin Carlos (Epogen) 10,000 UNIT/ML VIAL 10,000 UNIT SC Q2W ANEMIA (Reported ) Hydralazine HCl 100 MG TABLET 1 TAB PO TID HTN (Reported) Labetalol HCl 100 MG TABLET 3 TAB PO BID Hypertension Losartan (Cozaar) 100 MG TABLET 1 TAB PO DAILY HEART (Reported) Omeprazole 20 MG CAPSULE.DR 1 TAB PO BID ESOPHAGITIS Ondansetron HCl (Zofran) 4 MG TABLET 1 TAB PO Q6-8P PRN NAUSEA (Reported) Triage Note: PER PT CONTINUED LLE SWELLING AND PAIN DISCHARGED LAST WEEK IT WAS SWOLLEN BUT PER PT WORSE NOW DENIES FEVER WHOLE LEG SWOLLEN. UNABLE TO VISUALIZE IN TRIAGE Triage Nurses Notes Reviewed? yes : No Patient currently breastfeeds: No HPI: This patient is a 31-year-old female with a past medical history including hypertension and CKD on peritoneal dialysis who presented to the emergency department today for evaluation of lower extremity edema. The patient reported that she has had lower extremity edema in the past, but that this usually happens when she misses a treatment of dialysis. She reported that she has not missed any treatments recently. She woke up this morning with swelling in her lower legs, worse on the left than the right. She reported that they are, "draining." She reported associated numbness and pain like to turn 8 out of 10 and is throbbing. The pain is constant. No provoking or palliative factors. The patient reported that half an hour prior to coming to the emergency department she took 300 mg of labetalol and 100 mg of hydralazine. She denied any fevers, chills, chest pain, difficulty breathing, jaw pain, arm pain, abdominal pain, nausea, vomiting, or any other associated symptoms. She is not on any control or exogenous estrogen. No history of any blood clots. (CONSUELO COLLIER,ATUL) Vital Signs & Intake/Output Vital Signs & Intake/Output Vital Signs Date Time Temp Pulse Resp B/P Pulse O2 O2 Flow FiO2 Ox Delivery Rate 12/31 2116 98.1 77 20 194/86 98 Room Air 01/01 2044 93 Room Air 12/31 2028 230/120 12/31 2012 100.4 71 22 93 Room Air ED Intake and Output 01/01 0000 12/31 1200 Intake Total 0 Output Total Balance 0 Intake, Oral 0 Patient 160 lb Weight Past History Travel History Traveled to [facility] past 21 day No Medical History Any Pertinent Medical History? 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 Hemorrhagic stroke in September 2013 at [facility]. In February 2013, a right basal ganglia hemorrhagic CVA. In 2012, she had been transferred to [place] and ultimately to [facility]. EENT: NONE Cardiovascular: hypertension, hyperlipidemia, mitral regurgitation, LVH Respiratory: asthma, pneumonia Gastrointestinal: L ABD PERTINEAL PORT UMBILICAL HERNIA Hepatic: NONE Renal: end-stage renal disease on home PERITONEAL dialysis Musculoskeletal: chronic back pain, sciatica Psychiatric: anxiety Endocrine: hyperparathyroidism (secondary) Blood Disorders: anemia Cancer(s): NONE MANAGER PRODUCE/Reproductive: NONE Other Medical Hx: Obesity Eczema Catheter associated bacteremia with MRSA in September 2014 MRSA peritonitis/Sepsis History of Non-compliance with Meds and dialysis History of MRSA: No History of VRE: No History of CDIFF: No Influenza Vaccine: 05/28/16 Surgical History Surgical History: , umbilical hernia repair tenckhof placement [place] CATH PLACEMENT AND REMOVAL placement of the peritoneal dialysis catheter parathyroidectomy Psychosocial History Who do you live with Spouse Services at Home None What is your primary language Thai Tobacco Use: Current Daily Use Daily Tobacco Use Amount/Type: => 5 Cigarettes daily Family History Family History, If Any: FATHER FH: CAD (coronary artery disease) FH: diabetes mellitus FH: stroke grandmother FH: colon cancer Hx Contributory? No (CONSUELO COLLIER,ATUL) Review of Systems Review of Systems Constitutional: Reports: no symptoms. EENTM: Reports: no symptoms. Respiratory: Reports: no symptoms. Cardiovascular: Reports: no symptoms. Gastrointestinal/Abdominal: Reports: no symptoms. Genitourinary: Reports: no symptoms. Musculoskeletal: Reports: no symptoms. Skin: Reports: see HPI. Neurological/Psychological: Reports: see HPI. All Other Systems: Reviewed and Negative (CONSUELO COLLIER,ATUL) Physical Exam Physical Exam General Appearance: well developed/nourished, no apparent distress, alert, awake Comments: Well-developed well-nourished person in no acute distress HEENT: Normal EENT exam, head normocephalic, moist mucous membranes PERRLA bilaterally. No papilledema on funduscopic examination Neck: Supple, no lymphadenopathy Back: Normal inspection Cardiovascular: Regular rate and rhythm with no murmurs, rubs, or gallops Respiratory: Chest nontender. No respiratory distress. Breath sounds clear to auscultation bilaterally with no wheezes, rales, or rhonchi. No diminished breath sounds Lower extremities: Nonpitting edema to the lower extremities, greater on the left than the right. Weeping noted to the anterior aspect of the left lower extremity. No overlying erythema. Tenderness to palpation over bilateral lower extremities. Dorsalis pedis and posterior tibialis pulses 1+ bilaterally capillary refill less than 2 seconds. Full range of motion of hips, knees, and ankles. Neuro: Alert oriented x3, cranial nerves II through XII grossly intact. Skin: No appreciable rash on exposed skin, skin is warm and dry. Psych: Mood and affect is normal (CONSUELO COLLIER,ATUL) Progress Differential Diagnosis: arterial insufficiency, cellulitis, CHF, DVT, septic arthritis, PE, HYPERTENSIVE URGENCY Diagnostic Imaging: Viewed by Me: Ultrasound. Discussed w/RAD: Ultrasound. Radiology Impression: PATIENT: TERI BORRERO PRESENT AGE: 31 PATIENT ACCOUNT NO: [id number] : 87 LOCATION: [facility] ORDERING PHYSICIAN: ATUL CORDERO PA-C SERVICE DATE: 12/31/16 EXAM TYPE: US - US-EXT BILAT VENOUS DOPPLER EXAMINATION: US TRIPLEX LOWER EXTREMITY, BILATERAL CLINICAL INFORMATION: Bilateral lower extremity edema COMPARISON: None TECHNIQUE: Color-flow triplex imaging with spectral analysis and compression Doppler were performed on the bilateral lower extremities. FINDINGS: Examination is limited due to subcutaneous edema. Respiratory variation, normal compression and augmented flow are noted throughout the bilateral lower extremities. The visualized common femoral vein, superficial femoral vein, profunda femoral vein, popliteal vein and midcalf peroneal and posterior tibial venous segments show no evidence of deep venous thrombosis. There is no Lockhart's cyst. IMPRESSION: There is no sonographic evidence of deep venous thrombosis involving the bilateral lower extremities. DICTATED BY: SANDY RAHMAN MD DATE/TIME DICTATED:12/31/162156 ARMATURE CONNECTOR:KANDICE DATE/TIME TRANSCRIBED:12/31/162156 CONFIDENTIAL, DO NOT COPY WITHOUT APPROPRIATE AUTHORIZATION. <Electronically signed in Other Vendor System> SIGNED BY: SANDY RAHMAN MD 12/31/162200 Initial ED EKG: normal axis, normal intervals, no ST T wave changes, 72 BPM Comments: 12/31/2016 10:06:41 PM: I discussed this patient with Dr. RODRIGUEZ. Labs are at this patient's baseline or slightly better. Likely edema due to inconsistency with dialysis. This patient is going to follow up with her application integration specialist. Instructed her to elevate her legs and make sure to have her treatment a peritoneal dialysis tonight. Instructed to return for any worsening symptoms or concerns. (CONSUELO COLLIER,ATUL) Plan of Care: Orders Procedure Date/time Status TROPONIN LEVEL 12/31 2136 Complete EKG 12/31 2024 Active COMPREHENSIVE METABOLIC PANEL 01/01 2024 Complete CBC WITHOUT DIFFERENTIAL 01/01 2024 Complete B-TYPE NATRIURETIC PEP (BNP) 01/01 2024 Complete Laboratory Tests 12/31/162136: Anion Gap 12, Estimated GFR 4 L, BUN/Creatinine Ratio 4.6 L, Glucose 94, Calcium 8.1 L, Total Bilirubin 0.4, AST 13 L, ALT 29, Alkaline Phosphatase 92, Troponin I < 0.01, Ahy-P-[id number] Pept 06402 H, Total Protein 5.7 L, Albumin 3.0 L, Globulin 2.7, Albumin/Globulin Ratio 1.1 12/31/162036: Troponin I Cancelled, CBC w Diff NO MAN DIFF REQ, RBC 2.88 L, MCV 91.8, MCH 29.4, RDW 18.3 H, MPV 7.5, Gran % 61.3, Lymphocytes % 21.5, Monocytes % 8.2, Eosinophils % 8.7 H, Basophils % 0.3, Absolute Granulocytes 5.0, Absolute Lymphocytes 1.7, Absolute Monocytes 0.7 H, Absolute Eosinophils 0.7, Absolute Basophils 0, PUBS MCHC 32.0 L Departure Departure Disposition: HOME OR SELF CARE Condition: Stable Clinical Impression Primary Impression: Edema Qualifiers: Edema type: unspecified Qualified Code: R60.9 - Edema, unspecified Referrals: CLARA ANGEL MD (PCP/Family) Additional Instructions: As discussed, please follow-up with your application integration specialist. Return for any worsening symptoms or concerns. Please keep your legs elevated. Departure Forms: Customer Survey General Discharge Information (CONSUELO COLLIER,ATUL) PA/MASTER POLICE DETECTIVE Co-Sign Statement Statement: ED Attending supervision documentation- [] I saw and evaluated the patient. I have also reviewed all the pertinent lab results and diagnostic results. I agree with the findings and the plan of care as documented in the PA's/MASTER POLICE DETECTIVE's documentation. x I have reviewed the ED Record and agree with the PA's/MASTER POLICE DETECTIVE's documentation. [] Additions or exceptions (if any) to the PAs/MASTER POLICE DETECTIVE's note and plan are summarized below: [] (JENNIFER COTA,)
[2016-12-31 20:51] LABS: ABSOLUTE BASOPHIL COUNT 0 /CUMM (0.0-0.2); ABSOLUTE EOSINOPHIL COUNT 0.7 /CUMM (0.0-0.7); ABSOLUTE LYMPH COUNT 1.7 /CUMM (1.2-3.4); ABSOLUTE MONOCYTE COUNT 0.7 /CUMM (0.10-0.60); BASOPHIL % 0.3 % (0.0-2.0); EOSINOPHIL % 8.7 % (0-5); GRANULOCYTE % 61.3 % (42.2-75.2); HEMATOCRIT 26.4 % (37-47); MEAN CORPUSCULAR HGB 29.4 PG (27.0-31.0); MEAN CORPUSCULAR VOLUME 91.8 FL (81.0-99.0); MEAN PLATELET VOLUME 7.5 FL (7.4-10.4); PLATELET COUNT 299 /CUMM (130-400); RBC DISTRIBUTION WIDTH 18.3 % (11.5-14.5); RED BLOOD CELL CT 2.88 /CUMM (4.20-5.40); WHITE BLOOD CELL COUNT 8.1 /CUMM (4.8-10.8)
[2016-12-31 21:17] VITALS: BP 194/86
--- NOTE | 2016-12-31 22:01 | ULTRASOUND REPORT ---
EXAMINATION: US TRIPLEX LOWER EXTREMITY, BILATERAL CLINICAL INFORMATION: Bilateral lower extremity edema COMPARISON: None TECHNIQUE: Color-flow triplex imaging with spectral analysis and compression Doppler were performed on the bilateral lower extremities. FINDINGS: Examination is limited due to subcutaneous edema. Respiratory variation, normal compression and augmented flow are noted throughout the bilateral lower extremities. The visualized common femoral vein, superficial femoral vein, profunda femoral vein, popliteal vein and midcalf peroneal and posterior tibial venous segments show no evidence of deep venous thrombosis. There is no Lockhart's cyst. IMPRESSION: There is no sonographic evidence of deep venous thrombosis involving the bilateral lower extremities.
== END 2016-12-31 22:17 ==
LOC: ERH 20:02
PROVIDERS: Physician Assistant
DX: R60.9 Edema, unspecified (principal)
CPT/HCPCS: 93005; 93010; 93970

== ENCOUNTER 2017-01-28 21:17 | Emergency (ER) | payer OTHER ==
[~2017-01-28] VITALS: Ht 154.9 cm; Wt 77.1 kg
[2017-01-28] MEDS ORDERED: ESCITALOPRAM OXA5 MG (21:33)
[2017-01-28 21:48] LABS: ABSOLUTE BASOPHIL COUNT 0 /CUMM (0.0-0.2); ABSOLUTE EOSINOPHIL COUNT 0.2 /CUMM (0.0-0.7); ABSOLUTE GRANULOCYTE CT 9.9 /CUMM (1.4-6.5); ABSOLUTE LYMPH COUNT 1.1 /CUMM (1.2-3.4); ABSOLUTE MONOCYTE COUNT 0.5 /CUMM (0.10-0.60); BASOPHIL % 0.1 % (0.0-2.0); EOSINOPHIL % 2.1 % (0-5); GRANULOCYTE % 83.9 % (42.2-75.2); HEMATOCRIT 28.6 % (37-47); MEAN CORPUSCULAR HGB CONC 33.1 G/DL (33.0-37.0); MEAN CORPUSCULAR VOLUME 90.7 FL (81.0-99.0); MEAN PLATELET VOLUME 8.2 FL (7.4-10.4); PLATELET COUNT 320 /CUMM (130-400); RBC DISTRIBUTION WIDTH 15.5 % (11.5-14.5); RED BLOOD CELL CT 3.15 /CUMM (4.20-5.40); WHITE BLOOD CELL COUNT 11.8 /CUMM (4.8-10.8)
--- NOTE | 2017-01-28 23:01 | RADIOLOGY REPORT ---
EXAMINATION: XR PORTABLE CHEST CLINICAL INFORMATION: End-stage renal disease. Shortness of breath. COMPARISON: Chest x-ray 12/22/2016 TECHNIQUE: Portable frontal view of the chest was obtained. 10:22 PM FINDINGS: Heart size is enlarged. There are calcifications of thoracic aorta. There is prominence of the central hilar pulmonary vessels with increased interstitial lung markings of interstitial edema. There are small bilateral pleural effusions. IMPRESSION: Pulmonary vascular congestion with interstitial edema and small bilateral pleural effusions. Cardiomegaly.
--- NOTE | 2017-01-28 23:04 | ED DYSPNEA/ASTHMA COMPLAINT ---
History of Present Illness General Chief Complaint: Dyspnea (COPD, CHF, Other) Stated Complaint: SOB Source: patient, old records, EMS Exam Limitations: no limitations Vital Signs & Intake/Output Vital Signs & Intake/Output Vital Signs Date Time Temp Pulse Resp B/P B/P Pulse O2 O2 Flow FiO2 Mean Ox Delivery Rate 01/29 0420 80 16 130/60 95 Room Air 05 0315 97.4 84 16 150/70 95 Room Air 01/29 0232 98.9 100 16 218/110 05/05 0232 98.9 100 16 218/110 05/05 0232 98.9 100 16 218/110 05/05 0205 100 16 218/110 95 Room Air 05 0054 100 20 190/100 97 Nasal 1.0L Cannula 01/29 0024 96 16 200/94 97 Nasal 1.0L Cannula 01/28 2358 98.9 120 20 210/108 / 2343 120 20 210/108 97 Nasal 1.0L Cannula 01/28 2259 98.9 104 16 240/120 01/28 2250 104 16 240/120 95 Room Air 01/28 2231 99 16 242/128 97 Nasal 1.5L Cannula 01/28 2218 97 Nasal 2.5L Cannula 01/28 2216 98.9 92 16 270/138 05/04 2215 98.9 92 16 270/138 05/04 2215 98.9 92 16 270/138 05/04 2214 92 16 270/138 96 Nasal 2.5L Cannula 01/28 2130 98.9 94 20 280/140 97 Nasal 2.5L Cannula ED Intake and Output 01/29 0000 04 1200 Intake Total Output Total Balance Patient 170 lb Weight Weight Reported by Patient Measurement Method Allergies Coded Allergies: Iodinated Contrast Media - Oral and (Intermediate, HIVES AND SWELLING 12/21/16) morphine (Intermediate, HIVES 12/21/16) Penicillins (RASH 12/21/16) hydroxyzine (PER PT UNKNOWN 12/21/16) lisinopril (ANGIODEMA 12/21/16) LEIDA Inhibitors (ANGIODEMA 12/21/16) Reconcile Medications Alprazolam (Xanax) 0.5 MG TABLET 1 TAB PO DAILY NEEDED PRN ANXIETY ( Reported) Amlodipine Besylate 10 MG TABLET 1 TAB PO DAILY BP (Reported) Calcium (Elemental-Fr Calcarb) (Calcium Carbonate) 500 MG/5ML ORAL.SUSP 20 ML PO BID SUPPLEMENT (Reported) Clonidine 0.2 MG/24 HOUR PATCH.TDWK 1 PAT TOP QWED BP (Reported) Epoetin Carlos (Epogen) 10,000 UNIT/ML VIAL 10,000 UNIT SC Q2W ANEMIA (Reported ) Escitalopram Oxalate (Unknown Strength) TABLET (Unknown Dose) UNKNOWN ( Reported) Hydralazine HCl 100 MG TABLET 1 TAB PO TID HTN (Reported) Labetalol HCl 100 MG TABLET 3 TAB PO BID Hypertension Losartan (Cozaar) 100 MG TABLET 1 TAB PO DAILY HEART (Reported) Omeprazole 20 MG CAPSULE.DR 1 TAB PO BID ESOPHAGITIS Ondansetron HCl (Zofran) 4 MG TABLET 1 TAB PO Q6-8P PRN NAUSEA (Reported) Triage Note: PT BIBA FROM HOME FOR SOB SINCE THIS AM. PT ARRIVES ON NON-REBREATHER WITH SPO2 100%. TITRATED DOWN TO 2.5L NC, O2 SAT 97%. PT ABLE TO SPEAK IN FULL CLEAR SENTENCES DURING ASSESSMENT BY THIS RN. MANUAL BP 280/140 ON ARRIVAL. PT WITH HX OF RENAL FAILURE AND HTN. PT AWAKE/ALERT ON ARRIVAL, A&0X3. PT ALSO C/O LÓPEZ, NECK PAIN AND L EYE ITCHING/DISCHARGE. Triage Nurses Notes Reviewed? yes Onset: Morning Duration: hour(s):, constant, continues in ED Timing: recent history Severity: mild Activities at Onset: none Prior Episodes/Possible Cause: frequent episodes Modifying Factors: Improves With: rest. Worsens With: movement. Associated Symptoms: chest pain, lightheadedness, weakness LMP (ages 10-50): unknown : No Patient currently breastfeeds: No HPI: 12 hours prior to admission patient complains of progressive shortness of breath worse with exertion associated with chest discomfort headache. She also complains of left eye crusty discharge. She denies fever chills nausea vomiting diarrhea dysuria rash bleeding cough. Past History Travel History Traveled to [place] past 21 day No Medical History Any Pertinent Medical History? 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 Hemorrhagic stroke in September 2013 at [facility]. In February 2013, a right basal ganglia hemorrhagic CVA. In 2012, she had been transferred to [place] and ultimately to [facility]. 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 Other Medical Hx: Obesity Eczema Catheter associated bacteremia with MRSA in September 2014 MRSA peritonitis/Sepsis History of Non-compliance with Meds and dialysis History of MRSA: No History of VRE: No History of CDIFF: No Surgical History Surgical History: , umbilical hernia repair tenckhof placement [place] CATH PLACEMENT AND REMOVAL placement of the peritoneal dialysis catheter parathyroidectomy Psychosocial History Who do you live with Spouse Services at Home None What is your primary language Turkmen Tobacco Use: Refused to answer Family History Family History, If Any: FATHER FH: CAD (coronary artery disease) FH: diabetes mellitus FH: stroke grandmother FH: colon cancer Hx Contributory? No Review of Systems Review of Systems Constitutional: Reports: see HPI, weakness. EENTM: Reports: see HPI, eye drainage. Respiratory: Reports: see HPI, short of breath. Cardiovascular: Reports: see HPI, chest pain. GI: Reports: no symptoms. Genitourinary: Reports: no symptoms. Musculoskeletal: Reports: no symptoms. Skin: Reports: no symptoms. Neurological/Psychological: Reports: no symptoms. Hematologic/Endocrine: Reports: no symptoms. Immunologic/Allergic: Reports: no symptoms. All Other Systems: Reviewed and Negative Physical Exam Physical Exam General Appearance: well developed/nourished, alert, awake, mild distress, obese Head: atraumatic, normal appearance Eyes: Bilateral: normal appearance, PERRL, EOMI. Ears, Nose, Throat: normal pharynx, normal ENT inspection Neck: normal inspection, supple, full range of motion, no midline tenderness Respiratory: chest non-tender, quiet respiration, decreased breath sounds, crackles Cardiovascular: regular rate/rhythm, normal peripheral pulses, norml femoral pulses equa Peripheral Pulses: 4+ carotid (R), 4+ carotid (L) Gastrointestinal: normal bowel sounds, soft, non-tender, no organomegaly Extremities: normal capillary refill, normal range of motion, pedal edema, no ligament instability Neurologic/Psych: no motor/sensory deficits, awake, alert, oriented x 3, normal gait, anxious Skin: intact, normal color, warm/dry Lymphatic: no anterior cervical jazmin Core Measures ACS in differential dx? No Severe Sepsis Present: No Septic Shock Present: No Progress Differential Diagnosis: AMI, CHF, pneumonia Plan of Care: Orders Procedure Date/time Status TROPONIN LEVEL 01/29 2140 Complete MAGNESIUM 01/29 2140 Complete COMPREHENSIVE METABOLIC PANEL 01/29 2140 Complete CBC WITHOUT DIFFERENTIAL 01/29 2140 Complete EKG 01/29 2120 Active Laboratory Tests 01/28/172140: Anion Gap 14, Estimated GFR 4 L, BUN/Creatinine Ratio 5.0 L, Glucose 85, Calcium 8.2 L, Magnesium 1.6, Total Bilirubin 0.6, AST 23, ALT 36, Alkaline Phosphatase 111, Troponin I 0.09, Total Protein 6.5, Albumin 3.6, Globulin 2.9, Albumin/Globulin Ratio 1.2, CBC w Diff NO MAN DIFF REQ, RBC 3.15 L, MCV 90.7, MCH 30.0, RDW 15.5 H, MPV 8.2, Gran % 83.9 H, Lymphocytes % 9.6 L, Monocytes % 4.3, Eosinophils % 2.1, Basophils % 0.1, Absolute Granulocytes 9.9 H, Absolute Lymphocytes 1.1 L, Absolute Monocytes 0.5, Absolute Eosinophils 0.2, Absolute Basophils 0, PUBS MCHC 33.1 Diagnostic Imaging: Viewed by Me: Radiology Read. Discussed w/RAD: Radiology Read. CXR Impression: Pulmonary vascular congestion with interstitial edema and small bilateral pleural effusions. Cardiomegaly. Initial ED EKG: normal intervals, normal p-waves, rate (sinus tachycardia), LVH, no ST T wave changes Prior EKG: unchanged Rhythm Strip: sinus tachycardia Comments: Doubt medication compliance. Htn finally improved and sustained with resumption of oral medications. Symptoms of headache, shortness of breath, chest discomfort and anxiety improved. Departure Departure Time of Disposition: 436 Disposition: HOME OR SELF CARE Condition: Stable Clinical Impression Primary Impression: Hypertension Qualifiers: Hypertension type: renovascular hypertension Qualified Code: I15.0 - Renovascular hypertension Secondary Impressions: Conjunctivitis Qualifiers: Conjunctivitis type: unspecified Laterality: left Qualified Code: H10.9 - Unspecified conjunctivitis End-stage renal disease on peritoneal dialysis Referrals: CLARA ANGEL MD (PCP/Family) Additional Instructions: Polytrim eye drops 2 drops 4 times a day for 1 week Departure Forms: Customer Survey General Discharge Information Critical Care Note Critical Care Note Critical Care Time: 30-74 min (40)
[2017-01-29 04:20] VITALS: BP 130/60
== END 2017-01-29 04:42 ==
LOC: ERH 21:17
PROVIDERS: Emergency Medicine
DX: I10 Essential (primary) hypertension (principal); H10.9 Unspecified conjunctivitis; N18.6 End stage renal disease; Z99.2 Dependence on renal dialysis; R07.89 Other chest pain; R51 Headache
CPT/HCPCS: 93005; 93010; 96374; 96375; 96376; 99291; J0360; J3490

== ENCOUNTER 2017-01-30 23:02 | Inpatient (IN) | payer OTHER ==
[~2017-01-30] VITALS: Ht 154.9 cm; Wt 72.3 kg
[~2017-01-30 23:02] MED LIST changes: +ESCITALOPRAM OXA5 MG
--- NOTE | 2017-01-30 23:04 | NUR ---
SPO2 91% RA HR 89
--- NOTE | 2017-01-31 00:20 | NUR ---
PT TO ROOM 4 AT THIS TIME.
--- NOTE | 2017-01-31 00:22 | ED DYSPNEA/ASTHMA COMPLAINT ---
History of Present Illness General Chief Complaint: Dyspnea (COPD, CHF, Other) Stated Complaint: DIFF BREATHING Source: patient, old records Exam Limitations: no limitations Vital Signs & Intake/Output Vital Signs & Intake/Output Vital Signs Date Time Temp Pulse Resp B/P B/P Pulse O2 O2 Flow FiO2 Mean Ox Delivery Rate 01/31 0541 74 186/111 01/31 0541 74 186/111 01/31 0429 74 24 186/98 94 Room Air 01/31 0146 99.1 74 18 158/92 96 Room Air 01/31 0059 Room Air 01/30 2325 100.3 84 28 159/82 95 Room Air Room Air ED Intake and Output 01/31 0000 01/30 1200 Intake Total Output Total Balance Patient 160 lb Weight Allergies Coded Allergies: Iodinated Contrast Media - Oral and (Intermediate, HIVES AND SWELLING 12/21/16) morphine (Intermediate, HIVES 12/21/16) Penicillins (RASH 12/21/16) hydroxyzine (PER PT UNKNOWN 12/21/16) lisinopril (ANGIODEMA 12/21/16) LEIDA Inhibitors (ANGIODEMA 12/21/16) Reconcile Medications Alprazolam (Xanax) 0.5 MG TABLET 1 TAB PO DAILY NEEDED PRN ANXIETY ( Reported) Amlodipine Besylate 10 MG TABLET 1 TAB PO DAILY BP (Reported) Calcium (Elemental-Fr Calcarb) (Calcium Carbonate) 500 MG/5ML ORAL.SUSP 20 ML PO BID SUPPLEMENT (Reported) Clonidine 0.2 MG/24 HOUR PATCH.TDWK 1 PAT TOP QWED BP (Reported) Epoetin Carlos (Epogen) 10,000 UNIT/ML VIAL 10,000 UNIT SC Q2W ANEMIA (Reported ) Escitalopram Oxalate (Unknown Strength) TABLET (Unknown Dose) UNKNOWN ( Reported) Hydralazine HCl 100 MG TABLET 1 TAB PO TID HTN (Reported) Labetalol HCl 100 MG TABLET 3 TAB PO BID Hypertension Losartan (Cozaar) 100 MG TABLET 1 TAB PO DAILY HEART (Reported) Omeprazole 20 MG CAPSULE.DR 1 TAB PO BID ESOPHAGITIS Ondansetron HCl (Zofran) 4 MG TABLET 1 TAB PO Q6-8P PRN NAUSEA (Reported) Triage Note: 31YO FEMALE TOTRIAGE W/CO DIFF BREATHING "ALL DAY" STATES SHE "IS DUE FOR HER PERITONEAL DIALYSIS NOW" Triage Nurses Notes Reviewed? yes Onset: Gradual Duration: day(s): (FEW), worse persistent since (TODAY) Timing: recent history Severity: moderate Activities at Onset: none : No Patient currently breastfeeds: No HPI: 31 year old female with esrd on PD presents with difficulty breathing x 1 day. Left sided swelling for a few days. Reports fever 99 this afternoon. Currently 6 months on the renal transplant list now that her blood pressure is under control. Patient states she complains of peritoneal dialysis. Currently she is worthless Keven Guardado MD to change the dialysate elevated she may be allergic to it. Denies any other change in her medications. Past History Travel History Traveled to [place] past 21 day No Medical History Any Pertinent Medical History? 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 Hemorrhagic stroke in September 2013 at [facility]. In February 2013, a right basal ganglia hemorrhagic CVA. In 2012, she had been transferred to [place] and ultimately to [facility]. 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 Other Medical Hx: Obesity Eczema Catheter associated bacteremia with MRSA in September 2014 MRSA peritonitis/Sepsis History of Non-compliance with Meds and dialysis History of MRSA: No History of VRE: No History of CDIFF: No Surgical History Surgical History: , umbilical hernia repair tenckhof placement [place] CATH PLACEMENT AND REMOVAL placement of the peritoneal dialysis catheter parathyroidectomy Psychosocial History Who do you live with Spouse Services at Home None What is your primary language Slovak Tobacco Use: Never used Family History Family History, If Any: FATHER FH: CAD (coronary artery disease) FH: diabetes mellitus FH: stroke grandmother FH: colon cancer Hx Contributory? No Review of Systems Review of Systems Constitutional: Denies: chills, fever. EENTM: Reports: no symptoms. Respiratory: Reports: cough, short of breath. Cardiovascular: Reports: peripheral edema. GI: Denies: abdominal pain, nausea, vomiting. Genitourinary: Reports: no symptoms. Musculoskeletal: Reports: no symptoms. Skin: Reports: no symptoms. Neurological/Psychological: Reports: no symptoms. Hematologic/Endocrine: Denies: bruising, bleeding, polyuria, polydipsia. Immunologic/Allergic: Denies: splenectomy. All Other Systems: Reviewed and Negative Physical Exam Physical Exam General Appearance: well developed/nourished, alert, awake, anxious, mild distress Head: atraumatic, normal appearance Eyes: Bilateral: PERRL. Ears, Nose, Throat: normal pharynx, hearing grossly normal Neck: normal inspection, supple, full range of motion Respiratory: decreased breath sounds, wheezing Cardiovascular: regular rate/rhythm Peripheral Pulses: 2+ radial (R), 2+ radial (L) Gastrointestinal: soft, non-tender Extremities: swelling (3+ BILATERALLY) Neurologic/Psych: no motor/sensory deficits, awake, alert, oriented x 3 Skin: intact, normal color, warm/dry Core Measures ACS in differential dx? Yes Severe Sepsis Present: No Septic Shock Present: No Progress Differential Diagnosis: CHF, HYPERTENSIVE CRISIS, NON COMPLIANCE, CRF Plan of Care: Orders Procedure Date/time Status Renal Dialysis Diet 01/31 B Active Admit to inpatient 01/31 535 Active Vital Signs 01/31 0535 Active Code Status 01/31 0535 Active US-EXT BILAT VENOUS DOPPLER 01/31 0533 Active RT ED ORDERS 01/31 0422 Active TROPONIN LEVEL 01/31 0400 Complete EKG 01/31 0400 Active Add-on Test (ER Only) 01/31 0140 Active TROPONIN LEVEL 01/31 0100 Complete EKG 01/31 0033 Active BLOOD CULTURE 01/31 0031 Active RT ED ORDERS 01/31 0028 Active PARTIAL THROMBOPLASTIN TIME 01/31 0028 Complete PROTHROMBIN TIME 01/31 0028 Complete COMPREHENSIVE METABOLIC PANEL 01/31 0028 Complete CBC WITHOUT DIFFERENTIAL 01/31 0028 Complete B-TYPE NATRIURETIC PEP (BNP) 01/31 0028 Complete Laboratory Tests 01/31/17 0421: Troponin I 0.10 01/31/17 0100: Anion Gap 12, Estimated GFR 4 L, BUN/Creatinine Ratio 4.7 L, Glucose 110 H, Calcium 7.2 L, Total Bilirubin 0.5, AST 20, ALT 36, Alkaline Phosphatase 84, Troponin I 0.11 *H, [place] Pept 595368 H, Total Protein 5.5 L, Albumin 2.9 L, Globulin 2.6, Albumin/Globulin Ratio 1.1, PT 13.3 H, INR 1.27 H, APTT 32, CBC w Diff NO MAN DIFF REQ, RBC 2.48 L, MCV 90.3, MCH 29.7, RDW 15.3 H, MPV 8.7, Gran % 88.5 H, Lymphocytes % 6.9 L, Monocytes % 3.9, Eosinophils % 0.5, Basophils % 0.2, Absolute Granulocytes 9.9 H, Absolute Lymphocytes 0.8 L, Absolute Monocytes 0.4, Absolute Eosinophils 0.1, Absolute Basophils 0, PUBS MCHC 32.9 L Microbiology 01/31 114 BLOOD: Blood Culture - RECD 01/31 110 BLOOD: Blood Culture - RECD Diagnostic Imaging: Viewed by Me: Radiology Read, Ultrasound. Discussed w/RAD: Radiology Read, Ultrasound. CXR Impression: PATIENT: TERI BORRERO PRESENT AGE: 31 PATIENT ACCOUNT NO: [id number] : 87 LOCATION: [facility] ORDERING PHYSICIAN: SALVATORE BRADLEY MD SERVICE DATE: 01/31/17 EXAM TYPE: RAD - XRY -PORTABLE CHEST XRAY EXAMINATION: XR PORTABLE CHEST CLINICAL INFORMATION: Dyspnea, hypoxia. On peritoneal dialysis. COMPARISON: 01/28/2017 TECHNIQUE: Portable frontal view of the chest was obtained. FINDINGS: Low lung volumes. Cardiac leads overlie the chest. Small pleural effusions bilaterally, similar to previous. Streaky basilar opacities suggesting subsegmental atelectasis. Central vascular prominence without overt edema. No pneumothorax. The cardiomediastinal silhouette is unchanged, with a calcified aorta. IMPRESSION: Central vascular prominence without overt edema. Similar appearance of small bilateral pleural effusions. DICTATED BY: BONILLA NICHOLAS MD DATE/TIME DICTATED:01/31/1751 SHEAR SETTER:KANDICE DATE/TIME TRANSCRIBED:01/31/1751 CONFIDENTIAL, DO NOT COPY WITHOUT APPROPRIATE AUTHORIZATION. <Electronically signed in Other Vendor System> SIGNED BY: BONILLA NICHOLAS MD 01/31/1755 Initial ED EKG: NSR, LVH Rhythm Strip: normal sinus rhythm Departure Departure Time of Disposition: 534 Disposition: STILL A PATIENT Condition: Stable Clinical Impression Primary Impression: CHF (congestive heart failure) Secondary Impressions: Anemia, ESRD (end stage renal disease), Uncontrolled hypertension Referrals: CLARA ANGEL MD (PCP/Family) Departure Forms: Customer Survey General Discharge Information Admission Note Spoke With: TERRIE CHILDS MD Documentation of Exam: Documentation of any treatments & extenuating circumstances including Concerns Regarding Discharge (functional status, medication knowledge or non-compliance, living conditions, etc.) that warrant an admission rather than observation: [ TELE MONITOR, CARDIOLOGY EVALUATION, RENAL CONSULTATION, PERITONEAL DIALYSIS, BLOOD PRESSURE MANAGEMENT] Critical Care Note Critical Care Note Critical Care Time: 30-74 min
--- NOTE | 2017-01-31 00:56 | NUR ---
RESP AT BEDSIDE FOR TX
--- NOTE | 2017-01-31 00:56 | RADIOLOGY REPORT ---
EXAMINATION: XR PORTABLE CHEST CLINICAL INFORMATION: Dyspnea, hypoxia. On peritoneal dialysis. COMPARISON: 01/28/2017 TECHNIQUE: Portable frontal view of the chest was obtained. FINDINGS: Low lung volumes. Cardiac leads overlie the chest. Small pleural effusions bilaterally, similar to previous. Streaky basilar opacities suggesting subsegmental atelectasis. Central vascular prominence without overt edema. No pneumothorax. The cardiomediastinal silhouette is unchanged, with a calcified aorta. IMPRESSION: Central vascular prominence without overt edema. Similar appearance of small bilateral pleural effusions.
[2017-01-31 01:10] LABS: ABSOLUTE BASOPHIL COUNT 0 /CUMM (0.0-0.2); ABSOLUTE EOSINOPHIL COUNT 0.1 /CUMM (0.0-0.7); ABSOLUTE GRANULOCYTE CT 9.9 /CUMM (1.4-6.5); ABSOLUTE LYMPH COUNT 0.8 /CUMM (1.2-3.4); ABSOLUTE MONOCYTE COUNT 0.4 /CUMM (0.10-0.60); BASOPHIL % 0.2 % (0.0-2.0); EOSINOPHIL % 0.5 % (0-5); GRANULOCYTE % 88.5 % (42.2-75.2); MEAN CORPUSCULAR HGB 29.7 PG (27.0-31.0); MEAN CORPUSCULAR HGB CONC 32.9 G/DL (33.0-37.0); MEAN CORPUSCULAR VOLUME 90.3 FL (81.0-99.0); MEAN PLATELET VOLUME 8.7 FL (7.4-10.4); PLATELET COUNT 258 /CUMM (130-400); RBC DISTRIBUTION WIDTH 15.3 % (11.5-14.5); RED BLOOD CELL CT 2.48 /CUMM (4.20-5.40)
[2017-01-31 01:11] LABS: HEMATOCRIT 22.4 % (37-47)
--- NOTE | 2017-01-31 01:17 | NUR ---
CRITICAL TEST RESULTS [id number] TERI BORRERO 31 F TESTS AND RESULTS: HGB 7.4 Results received and read back by: OLESYA VENTURA Results received date and time: 01/31/17 0117 The following provider was notified of the results, and read the results back: MD BRADLEY Notified date and time: 01/31/17 at 0118
[2017-01-31 01:22] LABS: PT 13.3 SEC (9.4-12.5); PTT 32 SEC (25-37)
[2017-01-31 01:29] LABS: WHITE BLOOD CELL COUNT 11.2 /CUMM (4.8-10.8)
--- NOTE | 2017-01-31 01:35 | NUR ---
CRITICAL TEST RESULTS [id number] TERI BORRERO 31 F TESTS AND RESULTS: CREATININE 12.3 Results received and read back by: EUSEBIO GALLAGHER Results received date and time: 01/31/17 0135 The following provider was notified of the results, and read the results back: MD BRADLEY Notified date and time: 01/31/17 at 0134
--- NOTE | 2017-01-31 01:46 | NUR ---
PT MEDICATED WITH 1GM NITRO BID PASTE PER EMAR. BP 158/92.
--- NOTE | 2017-01-31 02:26 | NUR ---
CRITICAL TEST RESULTS [id number] TERI BORRERO 31 F TESTS AND RESULTS: TROPONIN 0.11 Results received and read back by: EUSEBIO GALLAGHER Results received date and time: 01/31/17 0226 The following provider was notified of the results, and read the results back: MD BRADLEY Notified date and time: 01/31/17 at 0226
--- NOTE | 2017-01-31 03:23 | NUR ---
PT SLEEPING WITH REGULAR RR, REMAINS NSR HR 73 ON MONITOR.
--- NOTE | 2017-01-31 04:28 | NUR ---
REPEAT TROP SENT TO LAB
--- NOTE | 2017-01-31 04:28 | NUR ---
PT MANUAL BP 186/98 MIRNA AWARE. AWAITING ORDERS
--- NOTE | 2017-01-31 05:42 | NUR ---
PT MEDICATED WITH BP MEDS PER EMAR FOR MANUAL BP 186/111. WILL RECHECK.
--- NOTE | 2017-01-31 05:59 | NUR ---
PT MEDICATED WITH XANAX AND 1SL NITRO PER EMAR. PT AWAITING ADMISSION
--- NOTE | 2017-01-31 06:34 | NUR ---
HOUSE STAFF IN TO EVAL PT
--- NOTE | 2017-01-31 07:14 | History & Physical ---
See Addendum BERNARDINO COTA,[facility] 01/31/17 0713: General Information and HPI MD Statement: I have seen and personally examined TERI WILSON and documented this H& P. The patient is a 31 year old F who presented with a patient stated chief complaint of [shortness of breath]. Source of Information: patient, old records Exam Limitations: no limitations History of Present Illness: Ms. 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 Patient reported that yesterday she had an anxiety episode around noon time, after that she noticed shortness of breath and chest tightness that was getting progressively worsen. She described chest tightness as retrosternal, 7/10, on and off that getting worse with supine position. She also reported hoarseness of voice,sorethroat,fever and chills, denied any cough, palpitation. Patient denied any abdominal pain, nausea vomiting. Patient has no urinary output. Over the last week she noticed swelling of lower extremity and upper extremity, paroxysmal nocturnal dyspnea, no orthopnea or change on sleep habits. Patient denied any history of sick contact. Allergies/Medications Allergies: Coded Allergies: Iodinated Contrast Media - Oral and (Intermediate, HIVES AND SWELLING 12/21/16) morphine (Intermediate, HIVES 12/21/16) Penicillins (RASH 12/21/16) hydroxyzine (PER PT UNKNOWN 12/21/16) lisinopril (ANGIODEMA 12/21/16) LEIDA Inhibitors (ANGIODEMA 12/21/16) Home Med list Alprazolam (Xanax) 0.5 MG TABLET 1 TAB PO DAILY NEEDED PRN ANXIETY ( Reported) Amlodipine Besylate 10 MG TABLET 1 TAB PO DAILY BP (Reported) Calcium (Elemental-Fr Calcarb) (Calcium Carbonate) 500 MG/5ML ORAL.SUSP 20 ML PO BID SUPPLEMENT (Reported) Clonidine 0.2 MG/24 HOUR PATCH.TDWK 1 PAT TOP QWED BP (Reported) Epoetin Carlos (Epogen) 10,000 UNIT/ML VIAL 10,000 UNIT SC Q2W ANEMIA (Reported ) Escitalopram Oxalate (Unknown Strength) TABLET (Unknown Dose) UNKNOWN ( Reported) Hydralazine HCl 100 MG TABLET 1 TAB PO TID HTN (Reported) Labetalol HCl 100 MG TABLET 3 TAB PO BID Hypertension Losartan (Cozaar) 100 MG TABLET 1 TAB PO DAILY HEART (Reported) Omeprazole 20 MG CAPSULE.DR 1 TAB PO BID ESOPHAGITIS Ondansetron HCl (Zofran) 4 MG TABLET 1 TAB PO Q6-8P PRN NAUSEA (Reported) Past History Travel History Traveled to [place] past 21 day No Medical History Neurological: CVA (January 2013), BASAL GANGLIA lACUNAR stroke Basal ganglia hemorhage, right January 2013 Left Basal ganglia stroke September 2013 L occipital infarct acute up 6 of little stroke in March 2015. Hemorrhagic stroke in September 2013 at [facility]. In February 2013, a right basal ganglia hemorrhagic CVA. In 2012, she had been transferred to [place] and ultimately to [facility]. EENT: NONE Cardiovascular: hypertension, hyperlipidemia, mitral regurgitation, LVH Respiratory: asthma, pneumonia Gastrointestinal: L ABD PERTINEAL PORT UMBILICAL HERNIA Hepatic: NONE Renal: end-stage renal disease on home PERITONEAL dialysis Musculoskeletal: chronic back pain, sciatica Psychiatric: anxiety Endocrine: hyperparathyroidism (secondary) Blood Disorders: anemia Cancer(s): NONE BRIDGE ENGINEER/Reproductive: NONE Other Medical Hx: Obesity Eczema Catheter associated bacteremia with MRSA in September 2014 MRSA peritonitis/Sepsis History of Non-compliance with Meds and dialysis History of MRSA: No History of VRE: No History of CDIFF: No Surgical History Surgical History: , umbilical hernia repair tenckhof placement [place] CATH PLACEMENT AND REMOVAL placement of the peritoneal dialysis catheter parathyroidectomy Past Family/Social History Family History Relations & Conditions if any FATHER FH: CAD (coronary artery disease) FH: diabetes mellitus FH: stroke grandmother FH: colon cancer Psychosocial History Who Do You Live With? child, parent Services at Home: None Primary Language: Micronesian Living Will? yes Functional Ability ADLs Independent: dressing, eating, toileting, bathing. Ambulation: independent IADLs Independent: shopping, housework, finances, food prep, telephone, transportation , medication admin. Review of Systems Review of Systems Constitutional: Reports: see HPI. Exam & Diagnostic Data Last 24 Hrs of Vital Signs/I&O Vital Signs Date Time Temp Pulse Resp B/P B/P Pulse O2 O2 Flow FiO2 Mean Ox Delivery Rate 01/31 702 98.8 76 18 178/94 95 Room Air 01/31 0542 74 186/111 01/31 0541 74 186/111 01/31 0541 74 186/111 01/31 0429 74 24 186/98 94 Room Air 01/31 0146 99.1 74 18 158/92 96 Room Air 01/31 0059 Room Air 01/30 2325 100.3 84 28 159/82 95 Room Air Room Air Intake & Output 01/31 1600 01/31 0800 01/31 0000 Intake Total 0 Output Total Balance 0 Intake, Oral 0 Patient 72.575 kg Weight Physical Exam General Appearance Alert, Oriented X3, Cooperative, No Acute Distress Skin No Rashes, No Breakdown, No Significant Lesion Skin Temp/Moisture Exam: Warm/Dry HEENT Atraumatic, PERRLA, EOMI, Mucous Membr. moist/pink Neck Supple, No JVD Lymphatic no cervical lymphadenopathy Cardiovascular Regular Rate, Normal S1, Normal S2, No Murmurs Lungs Clear to Auscultation, Normal Air Movement Abdomen Normal Bowel Sounds, Soft, No Tenderness, Umblical hernia 2x2, tender on palpation but no skin changes Neurological Normal Gait, Normal Speech, Strength at 5/5 X4 Ext, Normal Tone, Sensation Intact, Cranial Nerves 3-12 NL, Reflexes 2+ Extremities No Clubbing, No Cyanosis, Normal Pulses, No Tenderness/Swelling, BL LE non pitting edema, BL UE non pitting edema Assessment/Plan Assessment: Ms. 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 On admission Vital signs temperature 100.3, pulse 84, blood pressure 159/82, respiration 28, saturation 95% on room air Labs H&H 7.4/22.4, repeated C 11.2, sodium 128, potassium 4.6, BUN/creatinine 58 /12.3, troponin 0.11, proBNP 027680, calcium 7.2, albumin 2.9, INR 1.27 Chest x-ray IMPRESSION: Central vascular prominence without overt edema. Similar appearance of small bilateral pleural effusions. Problem list #Healthcare associated pneumonia #Chronic anemia #End stage renal disease on peritoneal dialysis #Hyponatremia #Possible congestive heart failure #Hypertension Plan -Admit to telemetry for close monitoring -Vancomycin and ceftaz -Monitor H&H and transfuse for hemoglobin less than 7 -Guaiac stool for history of upper GI bleeding -Lasix 40 twice a day -Weight and in and outs -Check serum osmolarity -Obtain nephrology consultation for peritoneal dialysis and hyponatremia recommendation -Obtain cardiology consultation -Echocardiogram -Continue home blood pressure medication -Diet renal dialysis -DVT prophylaxis heparin subcutaneous -Code full As Ranked By This Provider Problem List: 1. Uncontrolled hypertension 2. End-stage renal disease on peritoneal dialysis Core Measures/Miscellaneous Acute Coronary Syndrome ACS Diagnosis: No Cerebrovascular Accident CVA/TIA Diagnosis: No Congestive Heart Failure CHF Diagnosis: No Venous Thromboembolism VTE Risk Factors: Age > 40 [facility] prophylaxis d/t: No contraindications No VTE Pharm Prophylaxis d/t: No contraindications VTE Diagnosis: No VTE Type: NONE VTE Confirmed by (Test): NONE Severe Sepsis Severe Sepsis Present: No Septic Shock Septic Shock Present: No Miscellaneous Documentation Attending Case Discussed With: TERRIE CHILDS MD Primary Care Physician: CLARA ANGEL MD Patient sees these Specialists Nephrology, cardiology and cardiology Level of Patient Care: Telemetry EMORY SWEENEY 01/31/17 0720: Resident Review Statement Resident Statement: examined this patient, discussed with director internal communications, agreed with director internal communications Other Findings: Mrs. Wilson is a 31 yo women with PMHx. of end-stage renal disease on peritoneal dialysis every night for 8-10 hours, hypertension on multiple antihypertensive medications, hypertensive urgency, basal ganglia hemorrhage, recent admission at [facility] for bright red blood per rectum and hypertensive urgency Detaild HX. as above Vitals and examination as above Labs pertinent for WBC: 11.2, H&H: 7.4/22.4, Na:128, BUN/Creat: 58/2.3 Trpos. 1st set positive, second set negative ProBNP: [id number] CXR: Central vascular prominnance without overt edema, similar appearance B/L pleural effusion EKG: SR, 75bpm, T-wave inversion in lead 6 Assessment- 1. SOB which could be 2/2 HCAP VS fluid overload (ESRD) vs CHF 2. ESRD on peritoneal dialysis 3. Hypertensive urgency 4. Hyponatremia 5. Recent hospitilization for GI bleed 6.Chronic anemia 7. Hx of TIA Plan- Admit to telemetry floor Vitals per protocol Peritoneal dialysis 5 times per day as it was instructed by nephro, until she is evaluated by nephrology today (2.5% dextrose normal calcium exchanges 5 times per day (6 AM, 11 AM, 3 PM, 7 PM, 11 PM) IV protonix 40 mg BID 2 large IV's at all times Type and screen Cardiology consult (Her park guard is ) Blood culture was sent by ED, will send sputum culture Nephrology consult, Dr. Joaquin has already seen the patient TRC Will repeat cbc at 4pm Continue PO home meds renal dialysis diet DVT ppx with ALPS Pain pathway Full code Case was discussed with attending Dr.Arole ROBYN COTA,[facility] 01/31/17 1726: Attending MD Review Statement Attending Statement Attending MD Statement: examined this patient, discuss w/resident/PA/GLOBE CLEANER, agreed w/resident/PA/GLOBE CLEANER, reviewed EMR data (avail), discussed with nursing, amended to note Attending Assessment/Plan: Patient seen and examined. 31-year-old female with history of end-stage renal disease on peritoneal dialysis known to be noncompliant with therapy. Presents with complaints of shortness of breath. Also complains of generalized body aches. In the ED she was found maintaining saturation on room air. Imaging reveals evidence of volume overload. She was also noted to have a low-grade temperature 100.3 in the emergency room. She was admitted to the inpatient medical service for further management. On examination she is alert and oriented 3. She is not in any respiratory distress. She has no jugular venous distention. She has fair entry bilaterally with no added sounds. Abdomen is soft and nontender. She has trace peripheral edema. Problems: 1. Shortness of breath; likely secondary to volume overload from noncompliance with peritoneal dialysis. She was essentially yesterday. 2. Fever 3. Hypertension 4. Chronic anemia Plan: -Admit to the inpatient general medical service. -Follow-up recommendations of the nephrology service. -Patient was started empirically on vancomycin and ceftaz event for possible healthcare associated pneumonia. Continue this regimen pending blood culture results. Obtain sputum culture if possible. Peritoneal fluid will also be sent for culture. -Hemoglobin level is acutely low since last admission. Check stool guaiac. Monitor H&H every 12 hours. Transfuse if hemoglobin is less than 12. Follow-up in the nephrology service for Epogen therapy.
--- NOTE | 2017-01-31 07:20 | NUR ---
RECEIVED REPORT, ASSUMED CARE AT THIS TIME PT NOTED TO BE SLEEPING ON STRETCHER, REG RESP NOTED, NSR ON CM.
--- NOTE | 2017-01-31 08:58 | NUR ---
PER HOUSE STAFF PT IS OKAY TO COME OF TELE MONITOR FOR U/S TESTING.
--- NOTE | 2017-01-31 09:32 | NUR ---
PT STATES SHE WILL CHANGE WHEN U/S IS HERE TO TAKE HER.
[2017-01-31 09:51] VITALS: BP 166/97
--- NOTE | 2017-01-31 09:57 | NUR ---
PT TO U/S AT THIS TIME.
--- NOTE | 2017-01-31 10:10 | NUR ---
PTS P.D. DOCTOR DR CHUA CALLED WANTING TO PLACE VERBAL ORDERS FOR P.D.. INFORMED HIM WE WILL GET THE RESIDENT TO SPEAK WITH HIM. PAGED #[phone]
--- NOTE | 2017-01-31 10:30 | NUR ---
PAGED RESIDENT AGAIN REGARDING ORDERS FROM DR CHUA.
--- NOTE | 2017-01-31 10:39 | ULTRASOUND REPORT ---
EXAMINATION: US TRIPLEX OF LOWER EXTREMITIES, BILATERAL CLINICAL INFORMATION: Bilateral leg swelling COMPARISON: Doppler of the deep veins of the lower extremities dated 12/31/2016. TECHNIQUE: Color-flow triplex imaging with spectral analysis and compression Doppler were performed on the right and left lower extremities. FINDINGS: Respiratory variation, normal compression and augmented flow are noted in the deep veins of the lower extremities. The visualized femoral veins, superficial femoral vein, profunda femoral vein, popliteal vein and midcalf peroneal and posterior tibial venous segments show no evidence of deep venous thrombosis. The greater saphenous vein is patent bilaterally There is no Lockhart's cyst. IMPRESSION: Normal triplex scan without evidence of deep venous thrombosis involving the lower extremities.
--- NOTE | 2017-01-31 10:55 | NUR ---
PAGED RESIDENT AND TEXT PAGED RESIDENT #[phone] CHUA WANTS TO PLACE.
--- NOTE | 2017-01-31 11:08 | NUR ---
PT REQUESTING PAIN MEDICINE - REFUSING THE PRN TYLENOL IN COMPUTER. PAGED RESIDENT #[phone] SHOWN IN HOUSE STAFF ORDERS FOR CURRENT RESIDENT CARING FOR PT. ALSO PAGED REGARDING P.D. ORDERS FOR DR CHUA.
--- NOTE | 2017-01-31 11:22 | NUR ---
TEXT PAGED RESIDENT AGAIN.
--- NOTE | 2017-01-31 11:30 | NUR ---
OVERHEAD PAGED DR VEGA
--- NOTE | 2017-01-31 11:37 | NUR ---
REACHED JOVANY RESIDENT WHO IS NOW TAKING OVER FOR AFAF. INFORMED HER TO CALL DR RAINES SERVICE AT [phone]. STATES SHE WILL DO THAT NOW. ALSO WILL ORDER SOMETHING FOR PAIN.
--- NOTE | 2017-01-31 11:55 | Event Note ---
Event Note Event Note: Spoke with Dr. Stallings in regards to the Peritoneal dialysis. His recommendations are as follows: 1. Drain the indwelling fluid over 20 minutes 2. Send the first drained fluid (stat) for Cell Count and differentials, and Culture. If white cell count > 100, call Dr. Stallings immediatley 3. Fill with new fluid over 20 minutes 4. Allow to dwell until next exhange time 5. Exchanges every 4 hours 6. Alternate 2.5% regular Calcium with 4.25% regular calcium 7. Please notify Nephrology of any cloudy fluid or abdominal pain I have communicated with the ED team for these orders.
--- NOTE | 2017-01-31 12:43 | NUR ---
MEDICATED WITH PERCOCET (SEE MAR)
--- NOTE | 2017-01-31 13:14 | NUR ---
[facility] SUPPLIES AND SOLUTION ORDERED
--- NOTE | 2017-01-31 13:35 | NUR ---
INCORRECT SOLUTION CAME FROM BULK REORDERED
--- NOTE | 2017-01-31 14:04 | NUR ---
INCORRECT SOLUTION BROUGHT AGAIN TO ER.
--- NOTE | 2017-01-31 14:12 | NUR ---
THIS RN SPOKE TO BULK SUPPLY. GAVE DIFFERENT STOCK NUMBERS TO ORDER, INFORMED HIM WE ARE ORDERING FROM THE [facility], BUT GAVE A DIFFERENT NUMBER, AWAITING NEW FLUIDS.
--- NOTE | 2017-01-31 14:39 | NUR ---
SPOKE WITH ICU STAFF AND RESIDENT JOVANY TO ORDER CORRECT SOLUTION TO REFLECT DR RAINES ORDER.
--- NOTE | 2017-01-31 14:42 | NUR ---
NEW ORDER TO BULK PLACED FOR CORRECT SOLUTION AFTER SPEAKING WITH RESIDENT AGAIN.
--- NOTE | 2017-01-31 14:58 | NUR ---
NEW SOLUTION BROUGHT UP BY BULK.
--- NOTE | 2017-01-31 15:20 | NUR ---
[employer] CALLED FOR PERITONEAL DIALYSIS WARMER CART.
--- NOTE | 2017-01-31 15:30 | NUR ---
RESP CALLED FOR BREATHING TREATMENT.
--- NOTE | 2017-01-31 15:42 | NUR ---
RESP AT BEDSIDE FOR TREATMENT.
--- NOTE | 2017-01-31 15:47 | NUR ---
PT ASSIGNED TO ROOM 172
--- NOTE | 2017-01-31 16:01 | NUR ---
FOOD TRAY GIVEN TO PT. DIALYSATE WARMER DELIVERED BY TRANSPORT. FIRST BAG OF DIALYSATE WARMING AT THIS TIME.
[2017-01-31 16:10] LABS: ABSOLUTE BASOPHIL COUNT 0 /CUMM (0.0-0.2); ABSOLUTE EOSINOPHIL COUNT 0.2 /CUMM (0.0-0.7); ABSOLUTE MONOCYTE COUNT 0.7 /CUMM (0.10-0.60); BASOPHIL % 0.2 % (0.0-2.0); EOSINOPHIL % 1.5 % (0-5); GRANULOCYTE % 84.1 % (42.2-75.2); HEMATOCRIT 22.9 % (37-47); MEAN CORPUSCULAR HGB 30.5 PG (27.0-31.0); MEAN CORPUSCULAR HGB CONC 33.3 G/DL (33.0-37.0); MEAN CORPUSCULAR VOLUME 91.8 FL (81.0-99.0); MEAN PLATELET VOLUME 8.4 FL (7.4-10.4); PLATELET COUNT 228 /CUMM (130-400); RBC DISTRIBUTION WIDTH 15.5 % (11.5-14.5); RED BLOOD CELL CT 2.49 /CUMM (4.20-5.40)
--- NOTE | 2017-01-31 16:10 | NUR ---
REPORT GIVEN TO NEGRO ON TELEMETRY. BED IS READY.
--- NOTE | 2017-01-31 16:33 | Cons- Nephrology ---
General Information and HPI Consulting Request Date of Consult: 01/31/17 Requested By: TERRIE CHILDS MD Reason for Consult: Evaluation and management of end-stage renal disease Source of Information: patient, old records Exam Limitations: no limitations History of Present Illness: This 31-year-old woman has a history of end-stage renal disease and has been on dialysis since April 2012. She presented to the emergency room today with a history of increasing shortness of breath and a feeling of tightness. She also had a low-grade temp at home. She feels it is hard to take a deep breath and she complains of the pain going up and down her back when she takes a deep breath. Of note she has been frequently admitted to the hospital the most recent one of which I am aware, was 01/15/2017 through 01/17/2017. Patient was admitted to [facility]. She apparently received her usual medications along with IV nicardipine and experienced systolic blood pressure in the 100s and eventually signed out AGAINST MEDICAL ADVICE. Allergies/Medications Allergies: Coded Allergies: Iodinated Contrast Media - Oral and (Intermediate, HIVES AND SWELLING 12/21/16) morphine (Intermediate, HIVES 12/21/16) Penicillins (RASH 12/21/16) hydroxyzine (PER PT UNKNOWN 12/21/16) lisinopril (ANGIODEMA 12/21/16) LEIDA Inhibitors (ANGIODEMA 12/21/16) Home Med List: Alprazolam (Xanax) 0.5 MG TABLET 1 TAB PO DAILY NEEDED PRN ANXIETY ( Reported) Amlodipine Besylate 10 MG TABLET 1 TAB PO DAILY BP (Reported) Calcium (Elemental-Fr Calcarb) (Calcium Carbonate) 500 MG/5ML ORAL.SUSP 20 ML PO BID SUPPLEMENT (Reported) Clonidine 0.2 MG/24 HOUR PATCH.TDWK 1 PAT TOP QWED BP (Reported) Epoetin Carlos (Epogen) 10,000 UNIT/ML VIAL 10,000 UNIT SC Q2W ANEMIA (Reported ) Escitalopram Oxalate (Unknown Strength) TABLET (Unknown Dose) UNKNOWN ( Reported) Hydralazine HCl 100 MG TABLET 1 TAB PO TID HTN (Reported) Labetalol HCl 100 MG TABLET 3 TAB PO BID Hypertension Losartan (Cozaar) 100 MG TABLET 1 TAB PO DAILY HEART (Reported) Omeprazole 20 MG CAPSULE.DR 1 TAB PO BID ESOPHAGITIS Ondansetron HCl (Zofran) 4 MG TABLET 1 TAB PO Q6-8P PRN NAUSEA (Reported) Review of Systems Review of Systems Constitutional: Reports: chills, fever, malaise, weakness. Denies: diaphoresis, unexplained weight loss. EENTM: Denies: double vision, visual changes, ear discharge, ear pain, nasal congestion , epistaxis. Cardiovascular: Denies: chest pain, orthopena, palpitations, peripheral edema. Respiratory: Reports: cough, short of breath, wheezing. GI: Denies: abdominal pain, bloating, constipation. Genitourinary: Denies: discharge, hematuria. Musculoskeletal: Reports: back pain. Skin: Denies: change in hair/nails, dryness, erythema. Neurological/Psychological: Reports: anxiety. Hematologic/Endocrine: Reports: no symptoms. Immunologic/Allergic: Reports: no symptoms. 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 Hemorrhagic stroke in September 2013 at . In February 2013, a right basal ganglia hemorrhagic CVA. In 2012, she had been transferred to [place] and ultimately to [facility] right basal ganglia hemorrhagic CVA in January 2013. 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 Home Who Do You Live With? child, parent Services at Home: None Primary Language: Lithuanian Smoking Status: Current Some Day Smoker Living Will? yes Functional Ability ADLs Independent: dressing, eating, toileting, bathing. Ambulation: independent IADLs Independent: shopping, housework, finances, food prep, telephone, transportation , medication admin. Exam & Diagnostic Data Vital Signs and I&O Vital Signs Date Time Temp Pulse Resp B/P B/P Pulse O2 O2 Flow FiO2 Mean Ox Delivery Rate 01/31 1522 98.7 76 18 125/78 93 Room Air 01/31 1110 73 166/97 01/31 1110 73 166/97 01/31 1110 73 166/97 01/31 1110 73 166/97 01/31 0951 98.7 73 18 166/97 94 Room Air 01/31 0702 98.8 76 18 178/94 95 Room Air 01/31 0542 74 186/111 01/31 0541 74 186/111 01/31 0541 74 186/111 01/31 0429 74 24 186/98 94 Room Air 01/31 0146 99.1 74 18 158/92 96 Room Air 01/31 0059 Room Air 01/30 2325 100.3 84 28 159/82 95 Room Air Room Air Intake & Output 01/31 1600 01/31 0400 01/30 1600 01/30 0400 01/29 1600 01/29 0400 Intake Total 0 Output Total Balance 0 Intake, Oral 0 Patient 160 lb 160 lb Weight Weight Reported by Patient Measurement Method Physical Exam General Appearance: well developed/nourished, no apparent distress, alert, awake , comfortable Head: atraumatic, normal appearance Eyes: Bilateral: PERRL, EOMI, pale conjunctivae. Ears, Nose, Throat: normal pharynx, normal ENT inspection, hearing grossly normal Neck: normal inspection, supple, trachea mid line Respiratory: chest non-tender, quiet respiration, lungs clear Cardiovascular: regular rate/rhythm Peripheral Pulses: 2+ popliteal (R), 2+ popliteal (L), 2+ tibialis posterior (R), 2+ tibialis posterior (L), 2+ dorsalis pedis (R), 2+ dorsalis pedis (L) Extremities: normal inspection, normal capillary refill Cranial Nerves: normal hearing, normal speech, PERRL, no gross neurologic deficits Results Pertinent Lab Results: Laboratory Tests 01/31 01/31 01/31 6736 2281 0100 Chemistry Sodium (137 - 145 mmol/L) 128 L Potassium (3.5 - 5.1 mmol/L) 4.6 Chloride (98 - 107 mmol/L) 90 L Carbon Dioxide (22 - 30 mmol/L) 26 Anion Gap (5 - 16) 12 BUN (7 - 17 mg/dL) 58 H Creatinine (0.5 - 1.0 mg/dL) 12.3 *H Estimated GFR (>60 ml/min) 4 L BUN/Creatinine Ratio (7 - 25 %) 4.7 L Glucose (65 - 99 mg/dL) 110 H Calcium (8.4 - 10.2 mg/dL) 7.2 L Total Bilirubin (0.2 - 1.3 mg/dL) 0.5 AST (14 - 36 U/L) 20 ALT (9 - 52 U/L) 36 Alkaline Phosphatase (<127 U/L) 84 Troponin I (< 0.11 ng/ml) 0.10 0.11 *H Oiu-I-Ccvbjhwltug Pept (<125 pg/mL) [id number] H Total Protein (6.3 - 8.2 g/dL) 5.5 L Albumin (3.5 - 5.0 g/dL) 2.9 L Globulin (1.9 - 4.2 gm/dL) 2.6 Albumin/Globulin Ratio (1.1 - 2.2 %) 1.1 Coagulation PT (9.4 - 12.5 SEC) 13.3 H INR (0.90 - 1.19) 1.27 H APTT (25 - 37 SEC) 32 Hematology CBC w Diff Pending NO MAN DIFF REQ WBC (4.8 - 10.8 /CUMM) Pending 11.2 H RBC (4.20 - 5.40 /CUMM) Pending 2.48 L Hgb (12.0 - 16.0 G/DL) Pending 7.4 *L Hct (37 - 47 %) Pending 22.4 L MCV (81.0 - 99.0 FL) Pending 90.3 MCH (27.0 - 31.0 PG) Pending 29.7 RDW (11.5 - 14.5 %) Pending 15.3 H Plt Count (130 - 400 /CUMM) Pending 258 MPV (7.4 - 10.4 FL) Pending 8.7 Gran % (42.2 - 75.2 %) Pending 88.5 H Lymphocytes % (20.5 - 51.1 %) Pending 6.9 L Monocytes % (1.7 - 9.3 %) Pending 3.9 Eosinophils % (0 - 5 %) Pending 0.5 Basophils % (0.0 - 2.0 %) Pending 0.2 Absolute Granulocytes (1.4 - 6.5 /CUMM) Pending 9.9 H Absolute Lymphocytes (1.2 - 3.4 /CUMM) Pending 0.8 L Absolute Monocytes (0.10 - 0.60 /CUMM) Pending 0.4 Absolute Eosinophils (0.0 - 0.7 /CUMM) Pending 0.1 Absolute Basophils (0.0 - 0.2 /CUMM) Pending 0 PUBS MCHC (33.0 - 37.0 G/DL) Pending 32.9 L Imaging/Other Studies: PATIENT: TERI BORRERO PRESENT AGE: 31 PATIENT ACCOUNT NO: [id number] : 87 LOCATION: [facility] ORDERING PHYSICIAN: SALVATORE BRADLEY MD SERVICE DATE: 01/31/17 EXAM TYPE: RAD - XRY-PORTABLE CHEST XRAY EXAMINATION: XR PORTABLE CHEST CLINICAL INFORMATION: Dyspnea, hypoxia. On peritoneal dialysis. COMPARISON: 01/28/2017 TECHNIQUE: Portable frontal view of the chest was obtained. FINDINGS: Low lung volumes. Cardiac leads overlie the chest. Small pleural effusions bilaterally, similar to previous. Streaky basilar opacities suggesting subsegmental atelectasis. Central vascular prominence without overt edema. No pneumothorax. The cardiomediastinal silhouette is unchanged, with a calcified aorta. IMPRESSION: Central vascular prominence without overt edema. Similar appearance of small bilateral pleural effusions. DICTATED BY: BONILLA NICHOLAS MD DATE/TIME DICTATED:01/31/1751 [employer] ARCHITECT:KANDICE DATE/TIME TRANSCRIBED:01/31/1751 CONFIDENTIAL, DO NOT COPY WITHOUT APPROPRIATE AUTHORIZATION. <Electronically signed in Other Vendor System> SIGNED BY: BONILLA NICHOLAS MD 01/316 Assessment/Plan Assessment/Recommendations Assessment: 1. Shortness of breath. Suspect that this is fluid overload. 2. End-stage renal disease. She typically is using the cycler home. Her total volume is 11,200 mL. 3. Hypertension. 4. Status post stroke 3 perhaps more 5. Anemia. We'll need to check with the dialysis unit as to the last time she received Epogen. Suspect that the decrease in hemoglobin is related to her having missed her Epogen dose at the center. 6. Will water exchanges every 4 hours. 7. Will alternate between 2.5% and 4.25%. 8. First effluent will be sent for stat cell count and differential. Also a culture. Recommendations: 1. Will order exchanges every 4 hours. 2. Will alternate between 2.5% and 4.25%. 3. First effluent will be sent for stat cell count and differential. Also a culture.
[2017-01-31 16:41] LABS: WHITE BLOOD CELL COUNT 11.9 /CUMM (4.8-10.8)
[2017-01-31 16:56] VITALS: BP 132/76
--- NOTE | 2017-01-31 17:22 | Admission Certification ---
Admission Certification Certification Statement - As attending physician, I certify that at the time of - admission, based on clinical presentation, severity of - symptoms, need for further diagnostic testing and - therapeutic interventions, and risk of adverse outcomes - without in-hospital treatment, in my clinical assessment, - this patient requires an acute hospital stay for a minimum - of two nights or longer. I have also considered psychsocial - factors such as support system, advanced age, financial - issues, cognitive issues, and failed out-patient treatments, - past re-admission history, safety of patient, and lack of - compliance as applicable. Specific rationale supporting this admission is: She requires IV antibiotic therapy. She will also require dialysis.
[2017-02-01 00:28] VITALS: BP 128/80
--- NOTE | 2017-02-01 07:18 | PN- Housestaff ---
See Addendum Subjective Follow-up For: Shortness of breath 2/2 volume overload ESRD on peritoneal dialysis Possible HCAP Hypertension Anemia Subjective: No acute events overnight. Patient seen and examined this morning. She is lethargic but arousable. She continues to complain of shortness of breath. She also endorses chest tightness. She remains on room air. Review of Systems Constitutional: Reports: see HPI. Objective Last 24 Hrs of Vital Signs/I&O Vital Signs Date Time Temp Pulse Resp B/P B/P Pulse O2 O2 Flow FiO2 Mean Ox Delivery Rate 02/02 0830 96 160/96 / 0829 96 160/96 / 0827 96 16/98 / 0826 96 18 160/96 / 0730 97.7 72 20 160/80 94 Room Air / 0222 Room Air / 0028 98.8 69 24 128/80 91 05/08 0000 Room Air 01/31 2135 182/110 / 2135 182/110 / 2100 94 Room Air 01/31 1945 Room Air / 1755 73 132/76 05/07 1656 98.6 73 18 132/76 94 Room Air / 1600 Room Air /07 1522 98.7 76 18 125/78 93 Room Air Intake & Output 02/01 1600 08 0800 05/08 0000 Intake Total 4050 Output Total 4400 Balance -350 Intake, 4000 Dialysate Intake, Oral 50 Output, 4400 Dialysate Physical Exam General Appearance: Alert, Oriented X3, No Acute Distress HEENT: Atraumatic, Mucous Membr. moist/pink Cardiovascular: Regular Rate, Normal S1, Normal S2 Lungs: Bibasilar Crackles and Diminished Breath Sounds Abdomen: Soft, No Tenderness, Positive Bowel Sounds Extremities: No Clubbing, No Cyanosis, 1+ Edema on Bilateral Lower Extremities Current Medications: Current Medications Sig/Bryan Start time Last Medication Dose Route Stop Time Status Admin Acetaminophen 650 MG Q6P PRN 01/31 0730 AC PO Albuterol Sulfate 3 ML Q4P PRN 02/01 2000 AC 02/01 INH 0222 Alprazolam 0.5 MG DAILY PRN 01/31 0915 AC 02/01 PO 02/07 0914 0152 Amlodipine Besylate 10 MG DAILY 01/31 1000 AC 02/01 PO 0829 Calcium 600 MG BID 01/31 1000 AC 02/01 PO 0827 Ceftazidime 500 MG DAILY 02/01 1000 DC 02/01 IV 0829 Clonidine 1 PAT QWED 02/03 0700 AC TOP Epoetin Carlos 10,000 UNITS ONCE ONE 02/01 1115 UNVr SC 02/01 1116 Epoetin Carlos 20,000 U ONCE ONE 01/31 1745 DC 01/31 SC 01/31 1746 1958 Epoetin Carlos 10,000 UNIT Q 2 WEEKS 01/31 1000 AC 01/31 SC 2001 Hydralazine HCl 100 MG TID 01/31 1000 AC 02/01 PO 0826 Hydromorphone HCl 0.4 MG Q6P PRN 01/31 1800 AC 02/01 IV 0824 Labetalol HCl 300 MG BID 01/31 1000 AC 02/01 PO 0830 Losartan Potassium 100 MG DAILY 01/31 1000 AC 02/01 PO 0827 Ondansetron HCl 4 MG .STK-MED ONE 02/01 0131 DC PO 02/01 0132 Ondansetron HCl 4 MG Q6-PRN PRN 01/31 0915 AC 02/01 PO 0133 Oxycodone/ 0 .STK-MED ONE 01/31 1232 DC Acetaminophen PO Oxycodone/ 1 TAB Q6P PRN 01/31 1215 AC 02/01 Acetaminophen PO 0823 Pantoprazole Sodium 40 MG BID 01/31 1000 AC 02/01 IV 0828 Last 24 Hrs of Lab/Ashwin Results Last 24 Hrs of Labs/Mics: Laboratory Tests 02/01/17 1030: Sodium Pending, Potassium Pending, Chloride Pending, Carbon Dioxide Pending, Anion Gap Pending, BUN Pending, Creatinine Pending, BUN/Creatinine Ratio Pending , CBC w Diff Pending, WBC Pending, RBC Pending, Hgb Pending, Hct Pending, MCV Pending, MCH Pending, RDW Pending, Plt Count Pending, MPV Pending, PUBS MCHC Pending, Random Vancomycin Pending 02/01/17 0300: Lymphocytes 12, % Normal PMNs 8, Misc Hematology Test , Fluid WBC 9 H, Fld Mesothelial Cells 76, Fld Total RBCs Counted 14 H 01/31/17 1556: CBC w Diff NO MAN DIFF REQ, RBC 2.49 L, MCV 91.8, MCH 30.5, RDW 15.5 H, MPV 8.4, Gran % 84.1 H, Lymphocytes % 8.0 L, Monocytes % 6.2, Eosinophils % 1.5, Basophils % 0.2, Absolute Granulocytes 10.0 H, Absolute Lymphocytes 1.0 L, Absolute Monocytes 0.7 H, Absolute Eosinophils 0.2, Absolute Basophils 0, PUBS MCHC 33.3 Peritoneal fluid gram stain (02/01/17): No WBCs or organisms seen Orders Radiology Findings: BLE DOPPLER US: Normal triplex scan without evidence of deep venous thrombosis involving the lower extremities. Assessment/Plan Assessment: 31 y/o F with PMHx of ESRD on peritoneal dialysis, HTN and anemia who presents with shortness of breath. #Shortness of breath: Likely secondary to volume overload in the setting of noncompliance with dialysis, although current presentation is concerning for CHF in view of PND, orthopnea and longstanding HTN. Most recent ECHO in June 2016 with normal LVEF estimated at 65-70%, severe concentric hypertrophy of left ventricle and mild diastolic dysfunction. Peritoneal fluid with WBC count of 9, not consistent with infection. S/p 1 dose of IV vancomycin and ceftazidime yesterday for possible HCAP in the setting of low-grade fever and mild leukocytosis. Remains on room air. * Nephrology following. Appreciate their recs. * Continue aggressive ultrafiltration peritoneal dialysis for nephrology. * Check daily weight every morning after PD drain with empty abdomen. * Discontinue IV vancomycin and ceftazidime and monitor off antibiotics as patient has no evidence of pneumonia including infiltrate on CXR or cough. #HTN: BP has been elevated to 180s/110s this admission despite being on amlodipine, labetalol, losartan and hydralazine. Suspect that medication noncompliance and volume overload may be playing a major role. * Cardiology consulted. Appreciate their recs. #Anemia: Hgb in the 7-8 range. Likely multifactorial, secondary to iron deficiency, ESRD and missing her last outpatient Epogen dose. * Patient started on ferrous sulfate 325 mg PO TID given iron studies with low iron. * Vitamin B12 and folate pending. * Guaiac all stools. * Continue Epogen 30,000 units every 2 weeks. Diet: Renal Dialysis DVT PPx: ALPs CODE: FULL Problem List: 1. Uncontrolled hypertension 2. End-stage renal disease on peritoneal dialysis 3. Shortness of breath 4. Anemia Pain Ratin Pain Location: N/A Pain Goal: Remain pain free Pain Plan: Dilaudid 0.4 mg IV Q6H PRN for severe pain (scale 7-10) Percocet 1 tab PO Q6H PRN for moderate pain (scale 4-6) Tylenol 650 mg PO Q6H PRN for mild pain (scale 1-3) Tomorrow's Labs & Rationales: CBC to monitor H/H in the setting of anemia BMP to monitor lytes and kidney function in the setting of ESRD
[2017-02-01 07:30] VITALS: BP 160/80
--- NOTE | 2017-02-01 11:39 | PN- Nephrology ---
Assessment/Plan Assessment: 1. ESRD on PD. 2. Volume overload with CHF 3. Hypertension 4. Anemia 5. History of poor compliance with medications and and dialysis regimen Suggestion: 1. Will continue aggressive ultrafiltration peritoneal dialysis 2. Repeat echocardiogram 3. Daily weights with abdomen empty every morning 4. Anemia workup including stools for occult blood; if positive, GI referral 5. Epogen 30,000 units subcutaneous every other week. She received 20,000 units yesterday - would therefore give her another 10,000 units subcutaneous today Subjective Subjective: Patient continues to feel poorly with shortness of breath and orthopnea. She is also complaining of generalized chest tightness. Echocardiogram done in July 2016 showed concentric LVH, normal LVEF, mild diastolic dysfunction and pulmonary hypertension. She remains anemic and part related to missing her last outpatient Epogen dose. Objective Vital Signs and I&Os Vital Signs Date Time Temp Pulse Resp B/P B/P Pulse O2 O2 Flow FiO2 Mean Ox Delivery Rate 02/02 0830 96 160/96 02/01 0829 96 160/96 02/01 0827 96 16/98 02/01 0826 96 18 160/96 02/01 0730 97.7 72 20 160/80 94 Room Air 08 0222 Room Air 02/01 0028 98.8 69 24 128/80 91 05/08 0000 Room Air 01/31 2135 182/110 01/31 2135 182/110 / 2100 94 Room Air 01/31 1945 Room Air / 1755 73 132/76 / 1656 98.6 73 18 132/76 94 Room Air 01/31 1600 Room Air 01/31 1522 98.7 76 18 125/78 93 Room Air Intake & Output 02/01 1600 02/01 0400 01/31 1600 01/31 0400 01/30 1600 01/30 0400 Intake Total 4050 0 Output Total 4200 200 Balance -150 -200 0 Intake, 4000 Dialysate Intake, Oral 50 0 Output, 4200 200 Dialysate Patient 160 lb 160 lb Weight Weight Reported by Patient Measurement Method Physical Exam: General: Anxious young white female complaining of difficulty breathing especially when lying down with tight feeling in her chest on breathing deeply Skin: No rash or jaundice HEENT: Facial edema, conjunctivae pale, sclerae anicteric, mucous membranes moist Neck: Without masses or thyromegaly, no supraclavicular or cervical adenopathy Chest: Rales one third of the way up on right, poor air entry on left with diminished breath sounds at both bases Heart: Regular rate and rhythm without S3 or rub Abdomen: Soft and nontender without palpable masses or organomegaly Extremities: + edema, no cyanosis Neuro: No focal findings, no asterixis or myoclonus Current Medications: Current Medications Sig/Bryan Start time Last Medication Dose Route Stop Time Status Admin Acetaminophen 650 MG Q6P PRN 01/31 0730 AC PO Albuterol Sulfate 3 ML Q4P PRN 01/31 2000 AC 02/01 INH 0222 Alprazolam 0.5 MG BID PRN 02/01 1133 AC PO 02/08 1132 Alprazolam 0.5 MG DAILY PRN 01/31 0915 DC 02/01 PO 02/07 0914 0152 Amlodipine Besylate 10 MG DAILY 01/31 1000 AC 02/01 PO 0829 Calcium 600 MG BID 01/31 1000 AC 02/01 PO 0827 Ceftazidime 500 MG DAILY 02/01 1000 SD 02/01 IV 0829 Clonidine 1 PAT QWED 02/03 0700 AC TOP Epoetin Carlos 10,000 UNITS ONCE ONE 02/01 1115 UNVr SC 02/01 1116 Epoetin Carlos 20,000 U ONCE ONE 01/31 1745 DC 01/31 IN 01/31 1746 1958 Epoetin Carlos 10,000 UNIT Q 2 WEEKS 01/31 1000 AC 01/31 SC 2002 Hydralazine HCl 100 MG TID 01/31 1000 AC 02/01 PO 0826 Hydromorphone HCl 0.4 MG Q6P PRN 01/31 1800 AC 02/01 IV 0824 Labetalol HCl 300 MG BID 01/31 1000 AC 02/01 PO 0830 Losartan Potassium 100 MG DAILY 01/31 1000 AC 02/01 PO 0827 Ondansetron HCl 4 MG .STK-MED ONE 02/01 0131 DC PO 02/01 0132 Ondansetron HCl 4 MG Q6-PRN PRN 01/31 0915 AC 02/01 PO 0133 Oxycodone/ 0 .STK-MED ONE 01/31 1232 DC Acetaminophen PO Oxycodone/ 1 TAB Q6P PRN 01/31 1215 AC 02/01 Acetaminophen PO 0823 Pantoprazole Sodium 40 MG BID 01/31 1000 AC 02/01 IV 0828 Results Pertinent Lab Results: Laboratory Tests 02/01 02/01 01/31 01/31 1030 0300 1556 0421 Chemistry Sodium Pending Potassium Pending Chloride Pending Carbon Dioxide Pending Anion Gap Pending BUN Pending Creatinine Pending BUN/Creatinine Ratio Pending Troponin I (< 0.11 ng/ml) 0.10 Hematology CBC w Diff Pending NO MAN DIFF REQ WBC (4.8 - 10.8 /CUMM) Pending 11.9 H RBC (4.20 - 5.40 /CUMM) Pending 2.49 L Hgb (12.0 - 16.0 G/DL) Pending 7.6 L Hct (37 - 47 %) Pending 22.9 L MCV (81.0 - 99.0 FL) Pending 91.8 MCH (27.0 - 31.0 PG) Pending 30.5 RDW (11.5 - 14.5 %) Pending 15.5 H Plt Count (130 - 400 /CUMM) Pending 228 MPV (7.4 - 10.4 FL) Pending 8.4 Gran % (42.2 - 75.2 %) 84.1 H Lymphocytes % (20.5 - 51.1 %) 8.0 L Monocytes % (1.7 - 9.3 %) 6.2 Eosinophils % (0 - 5 %) 1.5 Basophils % (0.0 - 2.0 %) 0.2 Absolute Granulocytes (1.4 - 6.5 /CUMM) 10.0 H Absolute Lymphocytes (1.2 - 3.4 /CUMM) 1.0 L Lymphocytes (%) 12 Absolute Monocytes (0.10 - 0.60 /CUMM) 0.7 H Absolute Eosinophils (0.0 - 0.7 /CUMM) 0.2 Absolute Basophils (0.0 - 0.2 /CUMM) 0 % Normal PMNs (%) 8 PUBS MCHC (33.0 - 37.0 G/DL) Pending 33.3 Misc Hematology Test (%) Other Body Source Fluid WBC (0 - 5 /CUMM) 9 H Fld Mesothelial Cells (%) 76 Fld Total RBCs Counted (0 /CUMM) 14 H Toxicology Random Vancomycin Pending 01/31 0100 Chemistry Sodium (137 - 145 mmol/L) 128 L Potassium (3.5 - 5.1 mmol/L) 4.6 Chloride (98 - 107 mmol/L) 90 L Carbon Dioxide (22 - 30 mmol/L) 26 Anion Gap (5 - 16) 12 BUN (7 - 17 mg/dL) 58 H Creatinine (0.5 - 1.0 mg/dL) 12.3 *H Estimated GFR (>60 ml/min) 4 L BUN/Creatinine Ratio (7 - 25 %) 4.7 L Glucose (65 - 99 mg/dL) 110 H Calcium (8.4 - 10.2 mg/dL) 7.2 L Total Bilirubin (0.2 - 1.3 mg/dL) 0.5 AST (14 - 36 U/L) 20 ALT (9 - 52 U/L) 36 Alkaline Phosphatase (<127 U/L) 84 Troponin I (< 0.11 ng/ml) 0.11 *H [id number] Pept (<125 pg/mL) [id number] H Total Protein (6.3 - 8.2 g/dL) 5.5 L Albumin (3.5 - 5.0 g/dL) 2.9 L Globulin (1.9 - 4.2 gm/dL) 2.6 Albumin/Globulin Ratio (1.1 - 2.2 %) 1.1 Coagulation PT (9.4 - 12.5 SEC) 13.3 H INR (0.90 - 1.19) 1.27 H APTT (25 - 37 SEC) 32 Hematology CBC w Diff NO MAN DIFF REQ WBC (4.8 - 10.8 /CUMM) 11.2 H RBC (4.20 - 5.40 /CUMM) 2.48 L Hgb (12.0 - 16.0 G/DL) 7.4 *L Hct (37 - 47 %) 22.4 L MCV (81.0 - 99.0 FL) 90.3 MCH (27.0 - 31.0 PG) 29.7 RDW (11.5 - 14.5 %) 15.3 H Plt Count (130 - 400 /CUMM) 258 MPV (7.4 - 10.4 FL) 8.7 Gran % (42.2 - 75.2 %) 88.5 H Lymphocytes % (20.5 - 51.1 %) 6.9 L Monocytes % (1.7 - 9.3 %) 3.9 Eosinophils % (0 - 5 %) 0.5 Basophils % (0.0 - 2.0 %) 0.2 Absolute Granulocytes (1.4 - 6.5 /CUMM) 9.9 H Absolute Lymphocytes (1.2 - 3.4 /CUMM) 0.8 L Absolute Monocytes (0.10 - 0.60 /CUMM) 0.4 Absolute Eosinophils (0.0 - 0.7 /CUMM) 0.1 Absolute Basophils (0.0 - 0.2 /CUMM) 0 PUBS MCHC (33.0 - 37.0 G/DL) 32.9 L
[2017-02-01 12:08] LABS: ABSOLUTE BASOPHIL COUNT 0.1 /CUMM (0.0-0.2); ABSOLUTE EOSINOPHIL COUNT 0.4 /CUMM (0.0-0.7); ABSOLUTE GRANULOCYTE CT 5.4 /CUMM (1.4-6.5); ABSOLUTE LYMPH COUNT 1.5 /CUMM (1.2-3.4); ABSOLUTE MONOCYTE COUNT 0.4 /CUMM (0.10-0.60); BASOPHIL % 0.7 % (0.0-2.0); EOSINOPHIL % 5.5 % (0-5); GRANULOCYTE % 68.7 % (42.2-75.2); HEMATOCRIT 23.7 % (37-47); MEAN CORPUSCULAR HGB 29.9 PG (27.0-31.0); MEAN CORPUSCULAR HGB CONC 32.9 G/DL (33.0-37.0); MEAN CORPUSCULAR VOLUME 90.8 FL (81.0-99.0); MEAN PLATELET VOLUME 8.8 FL (7.4-10.4); PLATELET COUNT 237 /CUMM (130-400); RBC DISTRIBUTION WIDTH 16.3 % (11.5-14.5); RED BLOOD CELL CT 2.61 /CUMM (4.20-5.40); WHITE BLOOD CELL COUNT 7.8 /CUMM (4.8-10.8)
--- NOTE | 2017-02-01 12:21 | Cons- Cardiology ---
General Information and HPI Consulting Request Date of Consult: 02/01/17 Requested By: PEGGY WALLER MD Reason for Consult: Heart failure, hypertension History of Present Illness: The patient is a 31-year-old female with history of end-stage renal disease on peritoneal dialysis, chronic anemia, hypertension, hyperlipidemia, mitral regurgitation. She presents to the emergency department with complaint of shortness of breath and volume overload. The shortness of breath has been worsening over the past few days. She also describes substernal chest tightness which is a 7 out of 10 and is worse with supine position. There is no radiation of the pain. She notes worsening edema of her lower 70s over the past week. She is currently pain-free. No palpitations. No diaphoresis. No nausea or vomiting. No nausea or vomiting. Allergies/Medications Allergies: Coded Allergies: Iodinated Contrast Media - Oral and (Intermediate, HIVES AND SWELLING 12/21/16) morphine (Intermediate, HIVES 12/21/16) Penicillins (RASH 12/21/16) hydroxyzine (PER PT UNKNOWN 12/21/16) lisinopril (ANGIODEMA 12/21/16) LEIDA Inhibitors (ANGIODEMA 12/21/16) Home Med List: Alprazolam (Xanax) 0.5 MG TABLET 1 TAB PO DAILY NEEDED PRN ANXIETY ( Reported) Amlodipine Besylate 10 MG TABLET 1 TAB PO DAILY BP (Reported) Calcium (Elemental-Fr Calcarb) (Calcium Carbonate) 500 MG/5ML ORAL.SUSP 20 ML PO BID SUPPLEMENT (Reported) Clonidine 0.2 MG/24 HOUR PATCH.TDWK 1 PAT TOP QWED BP (Reported) Epoetin Carlos (Epogen) 10,000 UNIT/ML VIAL 10,000 UNIT SC Q2W ANEMIA (Reported ) Escitalopram Oxalate (Unknown Strength) TABLET (Unknown Dose) UNKNOWN ( Reported) Hydralazine HCl 100 MG TABLET 1 TAB PO TID HTN (Reported) Labetalol HCl 100 MG TABLET 3 TAB PO BID Hypertension Losartan (Cozaar) 100 MG TABLET 1 TAB PO DAILY HEART (Reported) Omeprazole 20 MG CAPSULE.DR 1 TAB PO BID ESOPHAGITIS Ondansetron HCl (Zofran) 4 MG TABLET 1 TAB PO Q6-8P PRN NAUSEA (Reported) Current Medications: Current Medications Sig/Bryan Start time Last Medication Dose Route Stop Time Status Admin Acetaminophen 650 MG Q6P PRN 01/31 0730 AC PO Albuterol Sulfate 3 ML Q4P PRN 01/31 2000 AC 02/01 INH 0222 Alprazolam 0.5 MG BID PRN 02/01 1133 AC 02/01 PO 02/08 1132 1158 Alprazolam 0.5 MG DAILY PRN 01/31 0915 DC 02/01 PO 02/07 0914 0152 Amlodipine Besylate 10 MG DAILY 01/31 1000 AC 02/01 PO 0829 Calcium 600 MG BID 01/31 1000 AC 02/01 PO 0827 Ceftazidime 500 MG DAILY 02/01 1000 DC 02/01 IV 0829 Clonidine 1 PAT QWED 02/03 0700 AC TOP Epoetin Carlos 30,000 UNIT Q 2 WEEKS 02/15 1000 DC SC Epoetin Carlos 30,000 UNIT Q 2 WEEKS 02/14 1000 AC SC Epoetin Carlos 10,000 UNIT ONCE ONE 02/01 1200 CAN SC 02/01 1215 Epoetin Carlos 10,000 UNITS ONCE ONE 02/01 1115 CAN SC 02/01 1200 Epoetin Carlos 10,000 UNIT Q 2 WEEKS 01/31 1000 DC 01/31 SC 2002 Ferrous Sulfate 325 MG TID 02/01 1600 AC 02/01 PO 1829 Hydralazine HCl 100 MG TID 01/31 1000 AC 02/01 PO 1832 Hydromorphone HCl 0.4 MG Q6P PRN 01/31 1800 AC 02/01 IV 1542 Labetalol HCl 300 MG BID 01/31 1000 AC 02/01 PO 0830 Losartan Potassium 100 MG DAILY 01/31 1000 AC 02/01 PO 0827 Ondansetron HCl 4 MG .STK-MED ONE 02/01 0131 DC PO 02/01 0132 Ondansetron HCl 4 MG Q6-PRN PRN 01/31 0915 AC 02/01 PO 0133 Oxycodone/ 1 TAB Q6P PRN 01/31 1215 AC 02/01 Acetaminophen PO 1542 Pantoprazole Sodium 40 MG BID 01/31 1000 AC 02/01 IV 0828 Review of Systems Review of Systems: No rash. No tremor. No fever. All other systems were reviewed, and were noted to be negative. 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 Hemorrhagic stroke in September 2013 at [facility]. In February 2013, a right basal ganglia hemorrhagic CVA. In 2012, she had been transferred to [place] and ultimately to [facility]. right basal ganglia hemorrhagic CVA in January 2013. 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 Home Who Do You Live With? child, parent Services at Home: None Primary Language: Arabic Smoking Status: Current Some Day Smoker Living Will? yes Functional Ability ADLs Independent: dressing, eating, toileting, bathing. Ambulation: independent IADLs Independent: shopping, housework, finances, food prep, telephone, transportation , medication admin. ECHO Results (as available) Report: CONCLUSIONS 1. Mild aortic sclerosis is present with mild aortic insufficiency. 2. Mitral leaflet thickening is present with mild to moderate anular calcification and mild mitral insufficiency with moderate left atrial enlargement. 3. There is no pericardial fluid present. 4. The left ventricular chamber size is normal with severe concentric hypertrophy and a normal ejection fraction with no resting wall motion abnormalities. Mild diastolic dysfunction is present. 5. Mild to moderate tricuspid insufficiency is present with mild pulmonic insufficiency and mild pulmonary hypertension with an estimated RV systolic pressure of 46 mmHg. 6. THere appearts to be a mobile echodensity present in the distal aspect of the transverse aortic arch. Further assessment is suggested if clinically indicated (chest CT, AARON, etc.). Exam & Diagnostic Data Vital Signs and I&O Vital Signs Date Time Temp Pulse Resp B/P B/P Pulse O2 O2 Flow FiO2 Mean Ox Delivery Rate 02/01 1832 65 168/82 02/01 1452 98.0 70 20 120/60 96 Room Air 02/01 1351 97.5 66 18 140/84 95 Room Air 02/01 1312 94 Room Air 02/01 0830 96 160/96 / 0829 96 160/96 02/01 0827 96 16/98 02/01 0826 96 18 160/96 02/01 0730 97.7 72 20 160/80 94 Room Air 02/01 0222 Room Air 02/01 0028 98.8 69 24 128/80 91 / 0000 Room Air 01/31 2135 182/110 01/31 2135 182/110 01/31 2100 94 Room Air 01/31 1945 Room Air Intake & Output 02/01 1600 02/01 0800 05/08 0000 / 1600 01/31 0800 01/31 0000 Intake Total 2400 4050 0 Output Total 2500 4400 Balance -100 -350 0 Intake, 2000 4000 Dialysate Intake, Oral 400 50 0 Number 0 Bowel Movements Output, 2500 4400 Dialysate Output, Urine 0 Patient 176 lb 160 lb 160 lb Weight Weight Reported by Patient Measurement Method Physical Exam: Gen: The patient is in no acute distress HEENT: Normal nose, ears, and oropharynx. Pupils equal bilaterally. Conjunctiva normal. Neck: Supple with no JVD, no masses, and no thyromegaly Lungs: Decreased breath sounds with normal respiratory effort Heart: RRR, S1, S2, no murmurs. 1+ peripheral edema, 1+ pulses in the lower extremities bilaterally Abdomen: Soft, nontender, no masses. No hepatomegaly. No splenomegaly Extremities: No clubbing or cyanosis. Normal muscle strength in the upper and lower extremities Skin: Normal skin turgor with no skin ulcers or lesions noted. Neuro: Cranial nerves intact. Sensation intact Psych: Alert and oriented 3 with appropriate affect Labs/Ashwin Results: Laboratory Tests 02/01 02/01 1030 0300 Chemistry Sodium (137 - 145 mmol/L) 132 L Potassium (3.5 - 5.1 mmol/L) 4.4 Chloride (98 - 107 mmol/L) 91 L Carbon Dioxide (22 - 30 mmol/L) 26 Anion Gap (5 - 16) 15 BUN (7 - 17 mg/dL) 56 H Creatinine (0.5 - 1.0 mg/dL) 13.2 *H Estimated GFR (>60 ml/min) 3 L BUN/Creatinine Ratio (7 - 25 %) 4.2 L Iron (37 - 170 ug/dL) 23 L TIBC (265 - 497 ug/dL) 203 L Ferritin (6.24 - 137 ng/mL) 194.0 H Vitamin B12 (239 - 931 pg/mL) > 1000 H Folate (2.76 - 20.0 ng/mL) 7.1 Hematology CBC w Diff NO MAN DIFF REQ WBC (4.8 - 10.8 /CUMM) 7.8 RBC (4.20 - 5.40 /CUMM) 2.61 L Hgb (12.0 - 16.0 G/DL) 7.8 L Hct (37 - 47 %) 23.7 L MCV (81.0 - 99.0 FL) 90.8 MCH (27.0 - 31.0 PG) 29.9 RDW (11.5 - 14.5 %) 16.3 H Plt Count (130 - 400 /CUMM) 237 MPV (7.4 - 10.4 FL) 8.8 Gran % (42.2 - 75.2 %) 68.7 Lymphocytes % (20.5 - 51.1 %) 19.7 L Monocytes % (1.7 - 9.3 %) 5.4 Eosinophils % (0 - 5 %) 5.5 H Basophils % (0.0 - 2.0 %) 0.7 Absolute Granulocytes (1.4 - 6.5 /CUMM) 5.4 Absolute Lymphocytes (1.2 - 3.4 /CUMM) 1.5 Lymphocytes (%) 12 Absolute Monocytes (0.10 - 0.60 /CUMM) 0.4 Absolute Eosinophils (0.0 - 0.7 /CUMM) 0.4 Absolute Basophils (0.0 - 0.2 /CUMM) 0.1 % Normal PMNs (%) 8 PUBS MCHC (33.0 - 37.0 G/DL) 32.9 L Misc Hematology Test (%) Other Body Source Fluid WBC (0 - 5 /CUMM) 9 H Fld Mesothelial Cells (%) 76 Fld Total RBCs Counted (0 /CUMM) 14 H Toxicology Random Vancomycin (ug/ml) 16.1 0507 05 1556 0421 Chemistry Troponin I (< 0.11 ng/ml) 0.10 Hematology CBC w Diff NO MAN DIFF REQ WBC (4.8 - 10.8 /CUMM) 11.9 H RBC (4.20 - 5.40 /CUMM) 2.49 L Hgb (12.0 - 16.0 G/DL) 7.6 L Hct (37 - 47 %) 22.9 L MCV (81.0 - 99.0 FL) 91.8 MCH (27.0 - 31.0 PG) 30.5 RDW (11.5 - 14.5 %) 15.5 H Plt Count (130 - 400 /CUMM) 228 MPV (7.4 - 10.4 FL) 8.4 Gran % (42.2 - 75.2 %) 84.1 H Lymphocytes % (20.5 - 51.1 %) 8.0 L Monocytes % (1.7 - 9.3 %) 6.2 Eosinophils % (0 - 5 %) 1.5 Basophils % (0.0 - 2.0 %) 0.2 Absolute Granulocytes (1.4 - 6.5 /CUMM) 10.0 H Absolute Lymphocytes (1.2 - 3.4 /CUMM) 1.0 L Absolute Monocytes (0.10 - 0.60 /CUMM) 0.7 H Absolute Eosinophils (0.0 - 0.7 /CUMM) 0.2 Absolute Basophils (0.0 - 0.2 /CUMM) 0 PUBS MCHC (33.0 - 37.0 G/DL) 33.3 01/31 0100 Chemistry Sodium (137 - 145 mmol/L) 128 L Potassium (3.5 - 5.1 mmol/L) 4.6 Chloride (98 - 107 mmol/L) 90 L Carbon Dioxide (22 - 30 mmol/L) 26 Anion Gap (5 - 16) 12 BUN (7 - 17 mg/dL) 58 H Creatinine (0.5 - 1.0 mg/dL) 12.3 *H Estimated GFR (>60 ml/min) 4 L BUN/Creatinine Ratio (7 - 25 %) 4.7 L Glucose (65 - 99 mg/dL) 110 H Calcium (8.4 - 10.2 mg/dL) 7.2 L Total Bilirubin (0.2 - 1.3 mg/dL) 0.5 AST (14 - 36 U/L) 20 ALT (9 - 52 U/L) 36 Alkaline Phosphatase (<127 U/L) 84 Troponin I (< 0.11 ng/ml) 0.11 *H Ybg-[id number]-Hcocqmjhxcy Pept (<125 pg/mL) 676380 H Total Protein (6.3 - 8.2 g/dL) 5.5 L Albumin (3.5 - 5.0 g/dL) 2.9 L Globulin (1.9 - 4.2 gm/dL) 2.6 Albumin/Globulin Ratio (1.1 - 2.2 %) 1.1 Coagulation PT (9.4 - 12.5 SEC) 13.3 H INR (0.90 - 1.19) 1.27 H APTT (25 - 37 SEC) 32 Hematology CBC w Diff NO MAN DIFF REQ WBC (4.8 - 10.8 /CUMM) 11.2 H RBC (4.20 - 5.40 /CUMM) 2.48 L Hgb (12.0 - 16.0 G/DL) 7.4 *L Hct (37 - 47 %) 22.4 L MCV (81.0 - 99.0 FL) 90.3 MCH (27.0 - 31.0 PG) 29.7 RDW (11.5 - 14.5 %) 15.3 H Plt Count (130 - 400 /CUMM) 258 MPV (7.4 - 10.4 FL) 8.7 Gran % (42.2 - 75.2 %) 88.5 H Lymphocytes % (20.5 - 51.1 %) 6.9 L Monocytes % (1.7 - 9.3 %) 3.9 Eosinophils % (0 - 5 %) 0.5 Basophils % (0.0 - 2.0 %) 0.2 Absolute Granulocytes (1.4 - 6.5 /CUMM) 9.9 H Absolute Lymphocytes (1.2 - 3.4 /CUMM) 0.8 L Absolute Monocytes (0.10 - 0.60 /CUMM) 0.4 Absolute Eosinophils (0.0 - 0.7 /CUMM) 0.1 Absolute Basophils (0.0 - 0.2 /CUMM) 0 PUBS MCHC (33.0 - 37.0 G/DL) 32.9 L Diagnostic Data EKG Results EKG tracing is independently reviewed, reveals normal sinus rhythm at 73, left atrial abnormality, left ventricular hypertrophy CXR Results Central vascular prominence without overt edema. Similar appearance of small bilateral pleural effusions. Other Results Lower extremity Doppler study: Normal triplex scan without evidence of deep venous thrombosis involving the lower extremities. Assessment/Plan Assessment/Plan Assessment: 1. End-stage renal disease, on peritoneal dialysis 2. Hypertension 3. Acute diastolic heart failure 4. History of poor compliance with medications and dialysis. Plan: * Dialysis as per nephrology with fluid removal * Echocardiogram * Continue losartan, clonidine, labetalol, and amlodipine for blood pressure control. Monitor blood pressure with dose adjustments as indicated Consult Acknowledgment - Thank you for your consult request.
[2017-02-01 13:51] VITALS: BP 140/84
[2017-02-01 14:52] VITALS: BP 120/60
[2017-02-01 22:58] VITALS: BP 128/70
[2017-02-02 00:35] VITALS: BP 148/80
[2017-02-02 05:56] VITALS: BP 142/78
--- NOTE | 2017-02-02 06:24 | NUR ---
PT REFUSED 3 AM WEIGHT, STATED SHE WILL GET WEIGHED DURING NEXT PERITONEAL DIAYLSIS AT 8 AM.
--- NOTE | 2017-02-02 06:53 | PN- Housestaff ---
FLAVIA COTA,THI 02/02/17 0653: Subjective Follow-up For: Fluid overload ESRD on peritoneal dialysis Subjective: I saw and examined the patient today morning She reports signficant pain in her chest, asking for increase in dilaudid frequency and dose. Pain is worse with breathing, associated with shortness of breath. otherwise no concerns. Review of Systems Constitutional: Reports: see HPI. Comments: ROS negative except the above. Objective Last 24 Hrs of Vital Signs/I&O Vital Signs Date Time Temp Pulse Resp B/P B/P Pulse O2 O2 Flow FiO2 Mean Ox Delivery Rate 02/02 0556 98.5 70 20 142/78 93 Room Air 02/02 0035 148/80 05/ 0033 99 Room Air / 0000 Room Air / 2302 86 160/90 05/ 2302 86 160/90 / 2258 98.2 74 20 128/70 99 Room Air / 2240 94 Room Air / 1832 65 168/82 05/08 1600 Room Air /08 1452 98.0 70 20 120/60 96 Room Air 05/08 1351 97.5 66 18 140/84 95 Room Air 05/08 1312 94 Room Air 05/08 0830 96 160/96 05/08 0829 96 160/96 05/08 0827 96 16/98 05/08 0826 96 18 160/96 05/08 0730 97.7 72 20 160/80 94 Room Air Intake & Output / 0800 05/09 0000 05/08 1600 Intake Total 698 223 6165 Output Total 302 833 6949 Balance 120 -380 620 Intake, 889 064 0467 Dialysate Intake, Oral 078 032 0803 Number 0 Bowel Movements Output, 593 127 9977 Dialysate Output, Urine 0 Patient 79.832 kg Weight Physical Exam General Appearance: Alert, Oriented X3, Cooperative Skin: No Rashes, No Breakdown HEENT: Atraumatic, PERRLA Neck: Supple, No JVD Cardiovascular: Normal S1, Normal S2 Lungs: Clear to Auscultation, Normal Air Movement Abdomen: Normal Bowel Sounds, Soft, No Tenderness Neurological: Normal Gait, Normal Speech, Strength at 5/5 X4 Ext Extremities: No Clubbing, No Cyanosis, 2+ edema present Vascular: Pulses Symmetrical Current Medications: Current Medications Sig/Bryan Start time Last Medication Dose Route Stop Time Status Admin Acetaminophen 650 MG Q6P PRN 01/31 0730 AC PO Albuterol Sulfate 3 ML Q4P PRN 01/31 2000 AC 02/02 INH 1149 Alprazolam 0.5 MG BID PRN 02/01 1133 AC 02/02 PO 02/08 1132 1215 Amlodipine Besylate 10 MG DAILY 01/31 1000 AC 02/02 PO 0923 Calcium 600 MG BID 01/31 1000 AC 02/02 PO 0923 Clonidine 1 PAT QWED 02/03 0700 AC TOP Epoetin Carlos 30,000 UNIT Q 2 WEEKS 02/14 1000 AC SC Ferrous Sulfate 325 MG TID 02/01 1600 AC 02/02 PO 1614 Hydralazine HCl 100 MG TID 01/31 1000 AC 02/02 PO 1614 Hydromorphone HCl 0.4 MG ONCE ONE 02/02 1845 DC 02/02 IV 02/02 1846 1846 Hydromorphone HCl 0.4 MG ONCE ONE 02/02 1430 DC 02/02 IV 02/02 1431 1432 Hydromorphone HCl 0.4 MG ONCE ONE 02/01 2315 DC 02/01 IV 02/01 2316 2313 Hydromorphone HCl 0.4 MG Q4 HRS NEEDED PRN 02/01 1930 AC 02/02 IV 1619 Labetalol HCl 300 MG BID 01/31 1000 AC 02/02 PO 0923 Lidocaine 1 PAT DAILY 02/03 1000 AC EXT Losartan Potassium 100 MG DAILY 01/31 1000 AC 02/02 PO 0923 Ondansetron HCl 4 MG .STK-MED ONE 02/01 2309 DC PO 02/01 2310 Ondansetron HCl 4 MG Q6-PRN PRN 01/31 0915 AC 02/01 PO 2311 Oxycodone/ 1 TAB Q6P PRN 01/31 1215 AC 02/02 Acetaminophen PO 1216 Pantoprazole Sodium 40 MG BID 01/31 1000 AC 02/02 IV 0920 Assessment/Plan Assessment: 31 y/o F with PMHx of ESRD on peritoneal dialysis, HTN and anemia who presents fluid overload after being noncomplaint with her dialysis sessions. Volume overload in the setting of ESRD In the setting of noncompliance with peritoneal dialysis, although current presentation is concerning for CHF in view of PND, orthopnea and longstanding HTN. ProBNP is 254,000. No signs of infection of peritoneal fluid/pneumonia. * Nephrology following. Appreciate their recs. * Continue aggressive ultrafiltration peritoneal dialysis for nephrology. * Check daily weight every morning after PD drain with empty abdomen. * As there is no significant wt loss, we will proceed with tunneled IJ tomorrow if this continues as per nephro recommendations. Noncardiac chest pain Patient reports persistent pain in her chest which is worse with breathing, getting better with Dilaudid. Pain management is consulted as she appears pain seeking. * Currenlty on dialudid 0.4mg Q4hrs, percocet Q6PRN. HTN BP has been elevated to 180s/110s this admission despite being on amlodipine, labetalol, losartan and hydralazine. Suspect that medication noncompliance and volume overload may be playing a major role. ECHO 07/12 - EF of 65-70% with concentric LVH, diastolic dysfunction. * Cardiology consulted. Appreciate their recs. * continue hydralazine, losartan, labetalol, amlodipine, clonidine patch. * ECHO pending. Anemia of multifactorial origin Hgb in the 7-8 range. Likely multifactorial, secondary to iron deficiency, ESRD and missing her last outpatient Epogen dose. * Patient started on ferrous sulfate 325 mg PO TID given iron studies with low iron. * Iron studies show Anemia of chronic disease (ESRD) with high ferritin, low iron. * Vitamin B12 >1000, folate 7.1 * Continue Epogen 30,000 units every 2 weeks. Chronic and stable conditions Anxiety: Xanax 0.5mg as needed Esophagitis: omez 20mg BID Nausea: ondansetrone 4mg Q4-6hr as needed. Depression: Escitalopram Diet: Renal Dialysis DVT PPx: ALPs CODE: FULL Problem List: 1. Acute pain 2. CRF ON HEMODIALYSIS 3. ESRD 4. Peritoneal dialysis 5. Anxiety Pain Ratin Pain Location: chest pain Pain Goal: Pain 4 or less Pain Plan: Dilaudid percocet Tomorrow's Labs & Rationales: bep to monitor creatinine and electrolytes ROBYN COTA,CHITRA 02/02/17 1539: Attending Review Statement Attending Statement Attending Statement: examined this patient, discuss w/resident/PA/NEUROLOGY SPECIALIST, agreed w/resident/PA/NEUROLOGY SPECIALIST, reviewed EMR data (avail), discussed with nursing, discussed with case mgmt, amended to note Attending Assessment/Plan: Patient seen and examined. Admitted to the hospital with volume overload secondary to missing her peritoneal dialysis sessions. She has been undergoing peritoneal dialysis is widely of admission. Initially presented with low-grade fever that has since abated. She was started on empiric antibiotics but this was discontinued due to afebrile and hemodynamically stable status. She has been downgraded to general medical service. Present patient complaining of pleuritic pain since on the telemetry unit. She has been receiving Dilaudid for pain control. Despite adjustment of the dose yesterday she reports suboptimal pain control. She reports that the pain is repeated coughing. She denies any phlegm production. She denies any palpitations. No reports of recent events on telemetry monitoring her troponin levels have been mildly elevated but flat. This is in the setting of end-stage renal disease. No ischemic workup recommended by the cardiology service. Gen. appearance: She is crying requesting increase of pain medications Heart: S1-S2 regular Lungs: Clear to auscultation bilaterally Abdomen: Soft, nontender with normal bowel sounds Extremities: 1+ pedal edema. Problems: 1. Acute on chronic secondary to poor compliance with dialysis. 2. End-stage renal disease on peritoneal dialysis. Patient has gained several pounds while here in the hospital. 3. Uncontrolled hypertension secondary to poor compliance; now blood pressure has improved 4. Pleuritic chest pain Plan: -Optimize pain control by adding Lidoderm patch. Continue Percocet. Increase Dilaudid to 1 mg every 4 hours for breakthrough pain. -Mobilize patient as tolerated. -We can discuss with the nephrology service. We'll continue to monitor. If she continues to gain weight she may require hemodialysis. -She has chronic anemia. Hemoglobin levels are currently stable. She has evidence of active bleeding. Hold off transfusion for now. She is receiving erythropoietin per recommendations of the nephrology service.
--- NOTE | 2017-02-02 08:00 | NUR ---
NURSING NOTE: PATIENT C/O 8/10 PAIN THIS AM. DILAUDID GIVEN PER ORDER. ITNERN 407 NOTIFIED AND SPOKE WITH PATIENT. AWAITING TO HEAR NEW ORDERS FROM ATTENDING PHYSICIAN REGARDING THE PATIENT'S PAIN.
--- NOTE | 2017-02-02 11:20 | NUR ---
NURSING NOTE: PATIENT C/O 07/06 PAIN. REIMBURSEMENT AUDITOR 407 CALLED ABOUT PAIN REGIMEN, INSTRUCTED AT THIS TIME TO STILL GIVE SAME DOSE DILAUDID AND WILL AWAIT FURTHER NOTICE FROM ATTENDING PHYSICIAN.
--- NOTE | 2017-02-02 12:00 | NUR ---
NURSING NOTE: ATTENDING PHYSICIAN ROBYN CAME TO DISCUSS PAIN WITH PATIENT AT THIS TIME. NO NEW ORDERS OF NOW. WILL CONTINUE TO MONITOR.
[2017-02-02 14:15] VITALS: BP 128/60
--- NOTE | 2017-02-02 14:21 | NUR ---
NURSING NOTE: PATIENT C/O 10/10 PAIN AT THIS TIME. ED EDUCATIONAL AIDE [phone] CALLED. STILL AWAITING INSTRUCTIONS.
--- NOTE | 2017-02-02 14:25 | NUR ---
NURSING NOTE: PATIENT BP AT THIS TIME 138/96. NEW ORDER DILAUDID SAME DOSE ONE TIME EARLY. PATIENT'S PAIN STILL 10/10 AND PATIENT NOTED TO BE CRYING. EDGE BRUSHER KORY NOTIFIED. WILL ADMINISTER ONE TIME IV DILAUDID.
--- NOTE | 2017-02-02 14:42 | PN- Cardiology ---
Subjective Subjective: The patient continues to complain of shortness of breath. No chest pain. No palpitations. No diaphoresis. No lightheadedness or dizziness. Objective Vital Signs and I&Os Vital Signs Date Time Temp Pulse Resp B/P B/P Pulse O2 O2 Flow FiO2 Mean Ox Delivery Rate 02/02 1415 97.7 66 18 128/60 97 Room Air 02/02 1155 Room Air 02/02 923 158/90 02/02 923 158/90 02/02 0923 158/90 02/02 0923 158/90 02/02 0913 96 Room Air 02/02 0800 Room Air 02/02 0556 98.5 70 20 142/78 93 Room Air 02/02 0035 148/80 02/02 0033 99 Room Air 02/02 0000 Room Air 02/01 2302 86 160/90 02/01 2302 86 160/90 02/01 2258 98.2 74 20 128/70 99 Room Air 02/01 2240 94 Room Air 02/01 1832 65 168/82 / 1600 Room Air 02/01 1452 98.0 70 20 120/60 96 Room Air Intake & Output 02/02 1600 /09 0800 05/09 0000 05/08 1600 / 0800 05/08 0000 Intake Total 698 240 8505 4050 Output Total 1300 756 578 1171 4400 Balance -1300 120 -380 620 -350 Intake, 201 895 2416 4000 Dialysate Intake, Oral 411 731 9293 50 Number 0 Bowel Movements Output, 1300 633 893 5449 4400 Dialysate Output, Urine 0 Patient 179 lb 176 lb Weight Weight Standing Scale Measurement Method Physical Exam: Gen: The patient is in no acute distress HEENT: Normal nose, ears, and oropharynx. Pupils equal bilaterally. Conjunctiva normal. Neck: Supple with no JVD, no masses, and no thyromegaly Lungs: Decreased breath sounds with normal respiratory effort Heart: RRR, S1, S2, no murmurs. 1+ peripheral edema, 1+ pulses in the lower extremities bilaterally Abdomen: Soft, nontender, no masses. No hepatomegaly. No splenomegaly Extremities: No clubbing or cyanosis. Normal muscle strength in the upper and lower extremities Skin: Normal skin turgor with no skin ulcers or lesions noted. Neuro: Cranial nerves intact. Sensation intact Current Medications: Current Medications Sig/Bryan Start time Last Medication Dose Route Stop Time Status Admin Acetaminophen 650 MG Q6P PRN 01/31 0730 AC PO Albuterol Sulfate 3 ML Q4P PRN 02/01 2000 AC 02/02 INH 1149 Alprazolam 0.5 MG BID PRN 02/01 1133 AC 02/02 PO 02/08 113 1215 Amlodipine Besylate 10 MG DAILY 01/31 1000 AC 02/02 PO 0923 Calcium 600 MG BID 01/31 1000 AC 02/02 PO 0923 Clonidine 1 PAT QWED 02/03 07 AC TOP Epoetin Carlos 30,000 UNIT Q 2 WEEKS 02/14 1000 AC SC Ferrous Sulfate 325 MG TID 02/01 1600 AC 02/02 PO 0923 Hydralazine HCl 100 MG TID 01/31 1000 AC 02/02 PO 0923 Hydromorphone HCl 0.4 MG ONCE ONE 02/02 1430 DC 02/02 IV 02/02 1431 1432 Hydromorphone HCl 0.4 MG ONCE ONE 02/01 2315 DC 02/01 IV 02/01 2316 2313 Hydromorphone HCl 0.4 MG Q4 HRS NEEDED PRN 02/01 1930 AC 02/02 IV 1117 Hydromorphone HCl 0.4 MG Q6P PRN 01/31 1800 DC 02/01 IV 1542 Labetalol HCl 300 MG BID 01/31 1000 AC 02/02 PO 0923 Losartan Potassium 100 MG DAILY 01/31 1000 AC 02/02 PO 0923 Ondansetron HCl 4 MG .STK-MED ONE 02/01 2309 DC PO 02/01 2310 Ondansetron HCl 4 MG Q6-PRN PRN 01/31 0915 AC 02/01 PO 2311 Oxycodone/ 1 TAB Q6P PRN 01/31 1215 AC 02/02 Acetaminophen PO 1216 Pantoprazole Sodium 40 MG BID 01/31 1000 AC 02/02 IV 0920 Results Last 48 Hrs of Labs/Mics: Laboratory Tests 02/01/17 1030: Anion Gap 15, Estimated GFR 3 L, BUN/Creatinine Ratio 4.2 L, Iron 23 L, TIBC 203 L, Ferritin 194.0 H, Vitamin B12 > 1000 H, Folate 7.1, CBC w Diff NO MAN DIFF REQ, RBC 2.61 L, MCV 90.8, MCH 29.9, RDW 16.3 H, MPV 8.8, Gran % 68.7, Lymphocytes % 19.7 L, Monocytes % 5.4, Eosinophils % 5.5 H, Basophils % 0.7, Absolute Granulocytes 5.4, Absolute Lymphocytes 1.5, Absolute Monocytes 0.4, Absolute Eosinophils 0.4, Absolute Basophils 0.1, PUBS MCHC 32.9 L, Random Vancomycin 16.1 02/01/17 0300: Lymphocytes 12, % Normal PMNs 8, Misc Hematology Test , Fluid WBC 9 H, Fld Mesothelial Cells 76, Fld Total RBCs Counted 14 H 01/31/17 1556: CBC w Diff NO MAN DIFF REQ, RBC 2.49 L, MCV 91.8, MCH 30.5, RDW 15.5 H, MPV 8.4, Gran % 84.1 H, Lymphocytes % 8.0 L, Monocytes % 6.2, Eosinophils % 1.5, Basophils % 0.2, Absolute Granulocytes 10.0 H, Absolute Lymphocytes 1.0 L, Absolute Monocytes 0.7 H, Absolute Eosinophils 0.2, Absolute Basophils 0, PUBS MCHC 33.3 Assessment/Plan Assessment/Plan Assessment: 1. End-stage renal disease, on peritoneal dialysis 2. Hypertension, now under control 3. Acute diastolic heart failure 4. History of poor compliance with medications and dialysis. Plan: * Dialysis as per nephrology with fluid removal * Echocardiogram * Continue losartan, clonidine, labetalol, and amlodipine for blood pressure control. Monitor blood pressure with dose adjustments as indicated Continue telemetry? Not applicable
--- NOTE | 2017-02-02 15:32 | Patient Discharge Instructions ---
Discharge Instructions General Discharge Information You were seen/treated for: fluid overload chest pain Special Instructions: Please follow up with your PCP in a week Please follow up with your missile control pilot in a week Please follow up with [facility] hemodialysis [facility] next week Diet Recommended Diet: Renal Dialysis Activity Activity Self Limited: Yes Acute Coronary Syndrome Inclusion Criteria At DC or during hospital stay patient has or had the following: ACS DIAGNOSIS No Discharge Core Measures Meds if any: Prescribed or Continued at Discharge Meds if any: NOT Prescribed or Continued at Discharge Congestive Heart Failure Inclusion Criteria At DC or during hospital stay patient has or had the following: CHF DIAGNOSIS No Discharge Core Measures Meds if any: Prescribed or Continued at Discharge Meds if any: NOT Prescribed or Continued at Discharge Cerebrovascular accident Inclusion Criteria At DC or during hospital stay patient has or had the following: CVA/TIA Diagnosis No Discharge Core Measures Meds if any: Prescribed or Continued at Discharge Meds if any: NOT Prescribed or Continued at Discharge Venous thromboembolism Inclusion Criteria VTE Diagnosis No VTE Type NONE VTE Confirmed by (Test) NONE Discharge Core Measures - Per Current guidelines, there needs to be overlap - treatment for the first 5 days of Warfarin therapy. - If discharged on Warfarin prior to 5 days of - overlap therapy, the patient will need to be - assessed for post discharge needs including - *Post discharge parental anticoagulation - *Warfarin and/or parental anticoagulation education - *Follow up date to check INR post discharge At least 5 days overlap therapy as Inpatient No Meds if any: Prescribed or Continued at Discharge Note: Overlap Therapy is Warfarin and Anticoagulant Meds if any: NOT Prescribed or Continued at Discharge
--- NOTE | 2017-02-02 17:27 | PN- Nephrology ---
Assessment/Plan Assessment: 1. ESRD on PD 2. Volume overload with CHF; she does not appear to be losing weight with attempts at aggressive ultrafiltration using 2.5% alternating with 4.25% dextrose solutions every 4 hours 3. Hypertension 4. Anemia 5. History of poor compliance with medications and and dialysis regimen Suggestion: 1. Will continue current aggressive ultrafiltration peritoneal dialysis regimen 2. If no significant weight loss or tomorrow, we'll proceed with placement of a tunneled IJ catheter with subsequent daily hemodialysis until ultrafiltration goal has been achieved 3. Continue daily weights with abdomen empty every morning Subjective Subjective: Patient did not lose any weight this morning despite the fact that she seems to be ultrafiltrating about 500 mL with every exchange. She remains clinically quite fluid overloaded without any significant clinical change in her status. Anemia workup suggests the possibility of some degree of iron deficiency as her Tsat is low. Folate and B12 levels are within normal limits. Still pending are stools for occult blood. Echocardiogram pending. Objective Vital Signs and I&Os Vital Signs Date Time Temp Pulse Resp B/P B/P Pulse O2 O2 Flow FiO2 Mean Ox Delivery Rate 02/02 1614 134/78 02/02 1415 97.7 66 18 128/60 97 Room Air 02/02 1155 Room Air 02/02 0923 158/90 02/02 0923 158/90 02/02 0923 158/90 02/02 0923 158/90 02/02 0913 96 Room Air 02/02 0800 Room Air 02/02 0556 98.5 70 20 142/78 93 Room Air 02/02 0035 148/80 02/02 0033 99 Room Air 02/02 0000 Room Air 02/01 2302 86 160/90 02/01 2302 86 160/90 02/01 2258 98.2 74 20 128/70 99 Room Air 02/01 2240 94 Room Air 02/01 1832 65 168/82 Intake & Output 02/02 1600 02/02 0400 02/01 1600 02/01 0400 01/31 1600 01/31 0400 Intake Total 8741 592 6072 0 Output Total 2200 1200 6700 200 Balance -580 -980 470 -200 0 Intake, 983 818 4726 Dialysate Intake, Oral 4895 947 1611 0 Number 0 Bowel Movements Output, 2200 1200 6700 200 Dialysate Output, Urine 0 Patient 179 lb 176 lb 160 lb 160 lb Weight Weight Standing Scale Reported by Patient Measurement Method Physical Exam: General: Partially sedated young white female still complaining of some difficulty breathing Skin: No rash or jaundice HEENT: Facial edema, conjunctivae pale, sclerae anicteric, mucous membranes moist Neck: Without masses or thyromegaly, no supraclavicular or cervical adenopathy Chest: Rales on right, poor air entry on left with diminished breath sounds at both bases Heart: Regular rate and rhythm without S3 or rub Abdomen: Soft and nontender without palpable masses or organomegaly Extremities: + edema, no cyanosis Neuro: No focal findings, no asterixis or myoclonus Current Medications: Current Medications Sig/Bryan Start time Last Medication Dose Route Stop Time Status Admin Acetaminophen 650 MG Q6P PRN 01/31 0730 AC PO Albuterol Sulfate 3 ML Q4P PRN 01/31 2000 AC 02/02 INH 1149 Alprazolam 0.5 MG BID PRN 02/01 1133 AC 02/02 PO 02/08 1132 1215 Amlodipine Besylate 10 MG DAILY 01/31 1000 AC 02/02 PO 0923 Calcium 600 MG BID 01/31 1000 AC 02/02 PO 0923 Clonidine 1 PAT QWED 02/03 0700 AC TOP Epoetin Carlos 30,000 UNIT Q 2 WEEKS 02/14 1000 AC SC Ferrous Sulfate 325 MG TID 02/01 1600 AC 02/02 PO 1614 Hydralazine HCl 100 MG TID 01/31 1000 AC 02/02 PO 1614 Hydromorphone HCl 0.4 MG ONCE ONE 02/02 1430 DC 02/02 IV 02/02 1431 1432 Hydromorphone HCl 0.4 MG ONCE ONE 02/01 2315 DC 02/01 IV 02/01 2316 2313 Hydromorphone HCl 0.4 MG Q4 HRS NEEDED PRN 02/01 1930 AC 02/02 IV 1619 Hydromorphone HCl 0.4 MG Q6P PRN 01/31 1800 DC 02/01 IV 1542 Labetalol HCl 300 MG BID 01/31 1000 AC 02/02 PO 0923 Lidocaine 1 PAT DAILY 02/03 1000 AC EXT Losartan Potassium 100 MG DAILY 01/31 1000 AC 02/02 PO 0923 Ondansetron HCl 4 MG .STK-MED ONE 02/01 2309 DC PO 02/01 2310 Ondansetron HCl 4 MG Q6-PRN PRN 01/31 0915 AC 02/01 PO 2311 Oxycodone/ 1 TAB Q6P PRN 01/31 1215 AC 02/02 Acetaminophen PO 1216 Pantoprazole Sodium 40 MG BID 01/31 1000 AC 02/02 IV 0920 Results Pertinent Lab Results: Laboratory Tests 02/01 02/01 1030 0300 Chemistry Sodium (137 - 145 mmol/L) 132 L Potassium (3.5 - 5.1 mmol/L) 4.4 Chloride (98 - 107 mmol/L) 91 L Carbon Dioxide (22 - 30 mmol/L) 26 Anion Gap (5 - 16) 15 BUN (7 - 17 mg/dL) 56 H Creatinine (0.5 - 1.0 mg/dL) 13.2 *H Estimated GFR (>60 ml/min) 3 L BUN/Creatinine Ratio (7 - 25 %) 4.2 L Iron (37 - 170 ug/dL) 23 L TIBC (265 - 497 ug/dL) 203 L Ferritin (6.24 - 137 ng/mL) 194.0 H Vitamin B12 (239 - 931 pg/mL) > 1000 H Folate (2.76 - 20.0 ng/mL) 7.1 Hematology CBC w Diff NO MAN DIFF REQ WBC (4.8 - 10.8 /CUMM) 7.8 RBC (4.20 - 5.40 /CUMM) 2.61 L Hgb (12.0 - 16.0 G/DL) 7.8 L Hct (37 - 47 %) 23.7 L MCV (81.0 - 99.0 FL) 90.8 MCH (27.0 - 31.0 PG) 29.9 RDW (11.5 - 14.5 %) 16.3 H Plt Count (130 - 400 /CUMM) 237 MPV (7.4 - 10.4 FL) 8.8 Gran % (42.2 - 75.2 %) 68.7 Lymphocytes % (20.5 - 51.1 %) 19.7 L Monocytes % (1.7 - 9.3 %) 5.4 Eosinophils % (0 - 5 %) 5.5 H Basophils % (0.0 - 2.0 %) 0.7 Absolute Granulocytes (1.4 - 6.5 /CUMM) 5.4 Absolute Lymphocytes (1.2 - 3.4 /CUMM) 1.5 Lymphocytes (%) 12 Absolute Monocytes (0.10 - 0.60 /CUMM) 0.4 Absolute Eosinophils (0.0 - 0.7 /CUMM) 0.4 Absolute Basophils (0.0 - 0.2 /CUMM) 0.1 % Normal PMNs (%) 8 PUBS MCHC (33.0 - 37.0 G/DL) 32.9 L Misc Hematology Test (%) Other Body Source Fluid WBC (0 - 5 /CUMM) 9 H Fld Mesothelial Cells (%) 76 Fld Total RBCs Counted (0 /CUMM) 14 H Toxicology Random Vancomycin (ug/ml) 16.1 05 05/ 1556 0421 Chemistry Troponin I (< 0.11 ng/ml) 0.10 Hematology CBC w Diff NO MAN DIFF REQ WBC (4.8 - 10.8 /CUMM) 11.9 H RBC (4.20 - 5.40 /CUMM) 2.49 L Hgb (12.0 - 16.0 G/DL) 7.6 L Hct (37 - 47 %) 22.9 L MCV (81.0 - 99.0 FL) 91.8 MCH (27.0 - 31.0 PG) 30.5 RDW (11.5 - 14.5 %) 15.5 H Plt Count (130 - 400 /CUMM) 228 MPV (7.4 - 10.4 FL) 8.4 Gran % (42.2 - 75.2 %) 84.1 H Lymphocytes % (20.5 - 51.1 %) 8.0 L Monocytes % (1.7 - 9.3 %) 6.2 Eosinophils % (0 - 5 %) 1.5 Basophils % (0.0 - 2.0 %) 0.2 Absolute Granulocytes (1.4 - 6.5 /CUMM) 10.0 H Absolute Lymphocytes (1.2 - 3.4 /CUMM) 1.0 L Absolute Monocytes (0.10 - 0.60 /CUMM) 0.7 H Absolute Eosinophils (0.0 - 0.7 /CUMM) 0.2 Absolute Basophils (0.0 - 0.2 /CUMM) 0 PUBS MCHC (33.0 - 37.0 G/DL) 33.3 01/31 0100 Chemistry Sodium (137 - 145 mmol/L) 128 L Potassium (3.5 - 5.1 mmol/L) 4.6 Chloride (98 - 107 mmol/L) 90 L Carbon Dioxide (22 - 30 mmol/L) 26 Anion Gap (5 - 16) 12 BUN (7 - 17 mg/dL) 58 H Creatinine (0.5 - 1.0 mg/dL) 12.3 *H Estimated GFR (>60 ml/min) 4 L BUN/Creatinine Ratio (7 - 25 %) 4.7 L Glucose (65 - 99 mg/dL) 110 H Calcium (8.4 - 10.2 mg/dL) 7.2 L Total Bilirubin (0.2 - 1.3 mg/dL) 0.5 AST (14 - 36 U/L) 20 ALT (9 - 52 U/L) 36 Alkaline Phosphatase (<127 U/L) 84 Troponin I (< 0.11 ng/ml) 0.11 *H [id number] Pept (<125 pg/mL) 174980 H Total Protein (6.3 - 8.2 g/dL) 5.5 L Albumin (3.5 - 5.0 g/dL) 2.9 L Globulin (1.9 - 4.2 gm/dL) 2.6 Albumin/Globulin Ratio (1.1 - 2.2 %) 1.1 Coagulation PT (9.4 - 12.5 SEC) 13.3 H INR (0.90 - 1.19) 1.27 H APTT (25 - 37 SEC) 32 Hematology CBC w Diff NO MAN DIFF REQ WBC (4.8 - 10.8 /CUMM) 11.2 H RBC (4.20 - 5.40 /CUMM) 2.48 L Hgb (12.0 - 16.0 G/DL) 7.4 *L Hct (37 - 47 %) 22.4 L MCV (81.0 - 99.0 FL) 90.3 MCH (27.0 - 31.0 PG) 29.7 RDW (11.5 - 14.5 %) 15.3 H Plt Count (130 - 400 /CUMM) 258 MPV (7.4 - 10.4 FL) 8.7 Gran % (42.2 - 75.2 %) 88.5 H Lymphocytes % (20.5 - 51.1 %) 6.9 L Monocytes % (1.7 - 9.3 %) 3.9 Eosinophils % (0 - 5 %) 0.5 Basophils % (0.0 - 2.0 %) 0.2 Absolute Granulocytes (1.4 - 6.5 /CUMM) 9.9 H Absolute Lymphocytes (1.2 - 3.4 /CUMM) 0.8 L Absolute Monocytes (0.10 - 0.60 /CUMM) 0.4 Absolute Eosinophils (0.0 - 0.7 /CUMM) 0.1 Absolute Basophils (0.0 - 0.2 /CUMM) 0 PUBS MCHC (33.0 - 37.0 G/DL) 32.9 L
--- NOTE | 2017-02-02 18:13 | NUR ---
NURSING NOTE: UCHE C/O 05/06 PAIN. PATIENT CRYING. DILAUDID 0.4 MG GIVEN LAST @ 1620. PATIENT STATED PAIN MEDICATION DID NOT WORK WELL. PATIENT STATED "I MIGHT WELL LEAVE AMA HERE AND SUFFER AT HOME BECAUSE THEY ARENT HELPING ME AT ALL. OR I SHOULD GO TO [facility] WHERE THEY WOULD AT LEAST KEEP ME COMFORTABLE" SQUARING SHEAR OPERATOR 136 NOTIFIED. SQUARING SHEAR OPERATOR STATED SHE WILL COME AND SPEAK WITH PATIENT ABOUT PAIN MEDICAITONS. WILL CONTINUE TO MONITOR.
[2017-02-02 22:49] VITALS: BP 144/86
[2017-02-03 07:00] VITALS: BP 135/71
--- NOTE | 2017-02-03 07:28 | PN- Housestaff ---
FLAVIA COTA,THI 02/03/17 0726: Subjective Follow-up For: ESRD on peritoneal dialysis Fluid overload Chest pain Subjective: I saw the patient today morning She is lying comfortably sitting in the bed, reports chest pain that is getting better with Dilaudid and worse with breathing. Still very congested, short of breath. Kept NPO thinking of catheter palcement today for 3hrs then restarted on her diet after confirmed with IR. Review of Systems Constitutional: Reports: see HPI. Comments: ROS negative except the above. Objective Last 24 Hrs of Vital Signs/I&O Vital Signs Date Time Temp Pulse Resp B/P B/P Pulse O2 O2 Flow FiO2 Mean Ox Delivery Rate 02/03 07 98.2 68 20 135/71 91 Room Air 02/03 0659 68 135/71 02/02 2326 70 144/86 02/02 2325 70 144/86 02/02 2249 97.7 70 20 144/86 95 Room Air 02/02 1614 134/78 02/02 1415 97.7 66 18 128/60 97 Room Air 02/02 1155 Room Air 02/02 0923 158/90 02/02 0923 158/90 02/02 0923 158/90 02/02 0923 158/90 02/02 0913 96 Room Air 02/02 0800 Room Air Intake & Output 02/03 0800 02/03 0000 02/02 1600 Intake Total 260 900 Output Total 700 2200 Balance -440 -1300 Intake, IV 20 Intake, Oral 240 900 Output, 700 2200 Dialysate Patient 81.25 kg Weight Weight Standing Scale Measurement Method Physical Exam General Appearance: Alert, Oriented X3, Cooperative, No Acute Distress Skin: No Rashes, No Breakdown HEENT: Atraumatic, PERRLA, EOMI Neck: Supple Cardiovascular: Normal S1, Normal S2, systolic murmur present Lungs: Normal Air Movement, decreased breath sounds on the left side present Abdomen: Normal Bowel Sounds, Soft, No Tenderness Neurological: Normal Speech, Normal Tone, Sensation Intact Extremities: No Clubbing, No Cyanosis, 2+ pedal edema present Vascular: Pulses Symmetrical Current Medications: Current Medications Sig/Bryan Start time Last Medication Dose Route Stop Time Status Admin Acetaminophen 650 MG Q6P PRN 01/31 0730 AC PO Albuterol Sulfate 3 ML Q4P PRN 02/01 2000 AC 02/02 INH 1149 Alprazolam 0.5 MG BID PRN 02/01 1133 AC 02/03 PO 02/08 1132 0018 Amlodipine Besylate 10 MG DAILY 01/31 1000 AC 02/02 PO 0923 Calcium 600 MG BID 01/31 1000 AC 02/02 PO 2326 Clonidine 1 PAT QWED 02/03 0700 AC 02/03 TOP 0659 Epoetin Carlos 30,000 UNIT Q 2 WEEKS 02/14 1000 AC SC Ferrous Sulfate 325 MG TID 02/01 1600 AC 02/02 PO 2325 Hydralazine HCl 100 MG TID 01/31 1000 AC 02/02 PO 2326 Hydromorphone HCl 1 MG Q4 HRS NEEDED PRN 02/02 2015 AC 02/03 IV 0357 Hydromorphone HCl 0.4 MG ONCE ONE 02/02 1845 DC 02/02 IV 02/02 1846 1846 Hydromorphone HCl 0.4 MG ONCE ONE 02/02 1430 DC 02/02 IV 02/02 1431 1432 Hydromorphone HCl 0.4 MG Q4 HRS NEEDED PRN 02/01 1930 DC 02/02 IV 1619 Labetalol HCl 300 MG BID 01/31 1000 AC 02/02 PO 2325 Lidocaine 1 PAT DAILY 02/03 1000 AC EXT Losartan Potassium 100 MG DAILY 01/31 1000 AC 02/02 PO 0923 Omeprazole 20 MG BID 02/03 1000 AC PO Ondansetron HCl 4 MG Q6-PRN PRN 01/31 0915 AC 02/01 PO 2311 Oxycodone/ 1 TAB Q6P PRN 01/31 1215 AC 02/02 Acetaminophen PO 1216 Pantoprazole Sodium 40 MG BID 01/31 1000 DC 02/02 IV 02/02 2300 2329 Last 24 Hrs of Lab/Ashwin Results Last 24 Hrs of Labs/Mics: Laboratory Tests 02/03/17 0645: Anion Gap 13, Estimated GFR 4 L, BUN/Creatinine Ratio 4.5 L Assessment/Plan Assessment: 31 y/o F with PMHx of ESRD on peritoneal dialysis, HTN and anemia who presents fluid overload after being noncomplaint with her dialysis sessions. Volume overload in the setting of ESRD In the setting of noncompliance with peritoneal dialysis, although current presentation is concerning for CHF in view of PND, orthopnea and longstanding HTN. ProBNP is 254,000. No signs of infection of peritoneal fluid/pneumonia. * Nephrology following. Appreciate their recs. * Continue aggressive ultrafiltration peritoneal dialysis for nephrology. * moderate left sided pleural effusion present. * Check daily weight every morning after PD drain with empty abdomen. * As there is no significant wt loss, we will proceed with tunneled IJ tomorrow. * NPO overnight. Noncardiac chest pain Patient reports persistent pain in her chest which is worse with breathing, getting better with Dilaudid. Pain management is consulted as she appears pain seeking. * Currenlty on dialudid 1mg Q4hrs, percocet Q6PRN. HTN BP has been elevated to 180s/110s this admission despite being on amlodipine, labetalol, losartan and hydralazine. Suspect that medication noncompliance and volume overload may be playing a major role. ECHO 07/12 - EF of 65-70% with concentric LVH, diastolic dysfunction. * Cardiology consulted. Appreciate their recs. * continue hydralazine, losartan, labetalol, amlodipine, clonidine patch. * ECHO shows similar finding with EF of 65-70%. * No pericardial effusion - but there is a moderate left pleural effusion. Anemia of multifactorial origin Hgb in the 7-8 range. Likely multifactorial, secondary to iron deficiency, ESRD and missing her last outpatient Epogen dose. * Patient started on ferrous sulfate 325 mg PO TID given iron studies with low iron. * Iron studies show Anemia of chronic disease (ESRD) with high ferritin, low iron. * Vitamin B12 >1000, folate 7.1 * Continue Epogen 30,000 units every 2 weeks. Chronic and stable conditions Anxiety: Xanax 0.5mg as needed Esophagitis: omez 20mg BID Nausea: ondansetrone 4mg Q4-6hr as needed. Depression: Escitalopram Diet: Renal Dialysis DVT PPx: ALPs CODE: FULL Problem List: 1. CRF ON HEMODIALYSIS 2. ESRD 3. HYPERTENSIVE URGENCY 4. Peritoneal dialysis 5. Psoriasis Pain Ratin Pain Location: chest pain Pain Goal: Pain 4 or less Pain Plan: Dilaudid 1mg Q6hrs Tomorrow's Labs & Rationales: none CHITRA CARLSON MD 02/03/17 0736: Attending MD Review Statement Attending Statement Attending MD Statement: examined this patient, discuss w/resident/PA/BOTTOM TURNER, agreed w/resident/PA/BOTTOM TURNER, reviewed EMR data (avail), discussed with nursing, amended to note Attending Assessment/Plan: Patient seen and examined. Sitting down comfortably in bed not in any acute distress. She reports that her pain has improved with the current regimen. Denies shortness of breath. Reports that her cough is improving. She has mild coarse voice On examination her face appears puffy. She has 1+ peripheral edema. Heart sounds are regular. Lungs are clear to auscultation bilaterally. Abdomen is soft and nontender. Problems: 1. Acute on chronic diastolic heart failure secondary to poor compliance with dialysis. 2. End-stage renal disease on peritoneal dialysis. Patient has gained several pounds while here in the hospital. 3. Uncontrolled hypertension secondary to poor compliance; now blood pressure has improved 4. Pleuritic chest pain Plan: -Recheck which today. If patient has not had significant weight gain the renal service is planning from placement of a tunnel catheter and commencement of hemodialysis. -Continue her antihypertensive regimen. -Continue current pain regimen. -Repeats serum chemistries only as recommended by the renal service. No indication for daily labs at present unless indicated by the renal service.
--- NOTE | 2017-02-03 09:52 | PN- Cardiology ---
Subjective Subjective: Stable without new CV symptoms Objective Vital Signs and I&Os Vital Signs Date Time Temp Pulse Resp B/P B/P Pulse O2 O2 Flow FiO2 Mean Ox Delivery Rate 02/04 808 68 135/71 02/03 08 68 135/71 02/03 08 68 135/71 02/03 08 68 135/71 02/03 07 98.2 68 20 135/71 91 Room Air 02/03 0659 68 135/71 02/02 2326 70 144/86 02/02 2325 70 144/86 02/02 2249 97.7 70 20 144/86 95 Room Air 02/02 1614 134/78 02/02 1415 97.7 66 18 128/60 97 Room Air 02/02 1155 Room Air Intake & Output 02/03 1600 02/03 0802/03 0000 02/02 1600 02/02 0802/02 0000 Intake Total 120 260 900 720 220 Output Total 792 860 9855 600 600 Balance -380 -440 -1300 120 -380 Intake, 600 100 Dialysate Intake, IV 20 Intake, Oral 120 240 900 120 120 Output, 704 895 3430 600 600 Dialysate Patient 178 lb 179 lb Weight Weight Standing Scale Measurement Method Current Medications: Current Medications Sig/Bryan Start time Last Medication Dose Route Stop Time Status Admin Acetaminophen 650 MG Q6P PRN 01/31 0730 AC PO Albuterol Sulfate 3 ML Q4P PRN 02/01 2000 AC 02/02 INH 1149 Alprazolam 0.5 MG BID PRN 02/01 1133 AC 02/03 PO 02/08 1132 0018 Amlodipine Besylate 10 MG DAILY 01/31 1000 AC 02/03 PO 0808 Calcium 600 MG BID 01/31 1000 AC 02/03 PO 0801 Clonidine 1 PAT QWED 02/03 07 AC 02/03 TOP 0659 Epoetin Carlos 30,000 UNIT Q 2 WEEKS 02/14 1000 AC SC Ferrous Sulfate 325 MG TID 02/01 1600 AC 02/03 PO 0801 Hydralazine HCl 100 MG TID 01/31 1000 AC 02/03 PO 0800 Hydromorphone HCl 1 MG Q4 HRS NEEDED PRN 02/02 2015 AC 02/03 IV 0800 Hydromorphone HCl 0.4 MG ONCE ONE 02/02 1845 DC 02/02 IV 02/02 Hydromorphone HCl 0.4 MG ONCE ONE 02/02 1430 DC 02/02 IV 02/02 1431 1432 Hydromorphone HCl 0.4 MG Q4 HRS NEEDED PRN 02/01 1930 DC 02/02 IV 1619 Labetalol HCl 300 MG BID 01/31 1000 AC 02/03 PO 0801 Lidocaine 1 PAT DAILY 02/03 1000 AC EXT Losartan Potassium 100 MG DAILY 01/31 1000 AC 02/03 PO 0801 Omeprazole 20 MG BID 02/03 1000 AC 02/03 PO 0801 Ondansetron HCl 4 MG Q6-PRN PRN 01/31 0915 AC 02/03 PO 0811 Oxycodone/ 1 TAB Q6P PRN 01/31 1215 AC 02/02 Acetaminophen PO 1216 Pantoprazole Sodium 40 MG BID 01/31 1000 DC 02/02 IV 02/02 2300 2329 Results Last 48 Hrs of Labs/Mics: Laboratory Tests 02/03/17 0645: Anion Gap 13, Estimated GFR 4 L, BUN/Creatinine Ratio 4.5 L 02/01/17 1030: Anion Gap 15, Estimated GFR 3 L, BUN/Creatinine Ratio 4.2 L, Iron 23 L, TIBC 203 L, Ferritin 194.0 H, Vitamin B12 > 1000 H, Folate 7.1, CBC w Diff NO MAN DIFF REQ, RBC 2.61 L, MCV 90.8, MCH 29.9, RDW 16.3 H, MPV 8.8, Gran % 68.7, Lymphocytes % 19.7 L, Monocytes % 5.4, Eosinophils % 5.5 H, Basophils % 0.7, Absolute Granulocytes 5.4, Absolute Lymphocytes 1.5, Absolute Monocytes 0.4, Absolute Eosinophils 0.4, Absolute Basophils 0.1, PUBS MCHC 32.9 L, Random Vancomycin 16.1 Assessment/Plan Assessment/Plan Assessment: 1. End-stage renal disease, on peritoneal dialysis 2. Hypertension, now under control 3. Acute diastolic heart failure 4. History of poor compliance with medications and dialysis. Plan: * Dialysis as per nephrology with fluid removal * Echocardiogram * Continue losartan, clonidine, labetalol, and amlodipine for blood pressure control. Monitor blood pressure with dose adjustments as indicated Continue telemetry? No
--- NOTE | 2017-02-03 10:57 | PN- Nephrology ---
Assessment/Plan Assessment: 1. ESRD on PD 2. Volume overload with CHF; she is not adequately ultrafiltering 3. Hypertension 4. Anemia 5. History of poor compliance with medications and and dialysis regimen Suggestion: 1. Please proceed with placement of a tunneled dialysis catheter by IR either later today or tomorrow morning 2. We will arrange for hemodialysis tomorrow and then daily for several days to achieve significant fluid removal Subjective Subjective: No significant change. Unfortunately, her weight today is down by only 1 pound since yesterday and she is not ultrafiltrating well on her current very aggressive PD regimen. She is willing to change to hemodialysis, at least for the short-term. Still pending are the echocardiogram and stools for occult blood. Objective Vital Signs and I&Os Vital Signs Date Time Temp Pulse Resp B/P B/P Pulse O2 O2 Flow FiO2 Mean Ox Delivery Rate 02/03 0808 68 135/71 02/03 0801 68 135/71 02/03 0801 68 135/71 02/03 0800 68 135/71 02/03 0700 98.2 68 20 135/71 91 Room Air 02/03 0659 68 135/71 02/02 2326 70 144/86 02/02 2325 70 144/86 02/02 2249 97.7 70 20 144/86 95 Room Air 02/02 1614 134/78 02/02 1415 97.7 66 18 128/60 97 Room Air 02/02 1155 Room Air Intake & Output 02/03 1600 02/03 0400 / 1600 / 0400 / 1600 / 0400 Intake Total 815 607 6439 220 7170 Output Total 7979 763 2273 1200 6700 200 Balance -1180 -440 -580 -980 470 -200 Intake, 936 231 6791 Dialysate Intake, IV 20 Intake, Oral 151 725 1058 120 1170 Number 0 Bowel Movements Output, 9152 458 5528 1200 6700 200 Dialysate Output, Urine 0 Patient 178 lb 179 lb 176 lb Weight Weight Standing Scale Measurement Method Physical Exam: General: Well-developed, obese white female still complaining of some difficulty breathing but in no acute distress Skin: No rash or jaundice HEENT: Facial edema, conjunctivae pale, sclerae anicteric, mucous membranes moist Neck: Without masses or thyromegaly, no supraclavicular or cervical adenopathy Chest: Rales on right, poor air entry on left with diminished breath sounds at both bases Heart: Regular rate and rhythm without S3 or rub Abdomen: Soft and nontender without palpable masses or organomegaly Extremities: + edema, no cyanosis Neuro: No focal findings, no asterixis or myoclonus Current Medications: Current Medications Sig/Bryan Start time Last Medication Dose Route Stop Time Status Admin Acetaminophen 650 MG Q6P PRN 01/31 0730 AC PO Albuterol Sulfate 3 ML Q4P PRN 02/01 2000 AC 02/02 INH 1149 Alprazolam 0.5 MG BID PRN 02/01 1133 AC 02/03 PO 02/08 1132 0018 Amlodipine Besylate 10 MG DAILY 01/31 1000 AC 02/03 PO 0808 Calcium 600 MG BID 01/31 1000 AC 02/03 PO 0801 Clonidine 1 PAT QWED 02/03 07 AC 02/03 TOP 0659 Epoetin Carlos 30,000 UNIT Q 2 WEEKS 02/14 1000 AC SC Ferrous Sulfate 325 MG TID 02/01 1600 AC 02/03 PO 0801 Hydralazine HCl 100 MG TID 01/31 1000 AC 02/03 PO 0800 Hydromorphone HCl 1 MG Q4 HRS NEEDED PRN 02/02 2015 AC 02/03 IV 0800 Hydromorphone HCl 0.4 MG ONCE ONE 02/02 1845 DC 02/02 IV 02/02 1846 1846 Hydromorphone HCl 0.4 MG ONCE ONE 02/02 1430 DC 02/02 IV 02/02 1431 1432 Hydromorphone HCl 0.4 MG Q4 HRS NEEDED PRN 02/01 1930 DC 02/02 IV 1619 Labetalol HCl 300 MG BID 01/31 1000 AC 02/03 PO 0801 Lidocaine 1 PAT DAILY 02/03 1000 AC EXT Losartan Potassium 100 MG DAILY 01/31 1000 AC 02/03 PO 0801 Omeprazole 20 MG BID 02/03 1000 AC 02/03 PO 0801 Ondansetron HCl 4 MG Q6-PRN PRN 01/31 0915 AC 02/03 PO 0811 Oxycodone/ 1 TAB Q6P PRN 01/31 1215 AC 02/02 Acetaminophen PO 1216 Pantoprazole Sodium 40 MG BID 01/31 1000 DC 02/02 IV 02/02 2300 2329 Results Pertinent Lab Results: Laboratory Tests 02/03 02/01 02/01 4747 1030 0300 Chemistry Sodium (137 - 145 mmol/L) 130 L 132 L Potassium (3.5 - 5.1 mmol/L) 4.4 4.4 Chloride (98 - 107 mmol/L) 91 L 91 L Carbon Dioxide (22 - 30 mmol/L) 27 26 Anion Gap (5 - 16) 13 15 BUN (7 - 17 mg/dL) 50 H 56 H Creatinine (0.5 - 1.0 mg/dL) 11.2 *H 13.2 *H Estimated GFR (>60 ml/min) 4 L 3 L BUN/Creatinine Ratio (7 - 25 %) 4.5 L 4.2 L Iron (37 - 170 ug/dL) 23 L TIBC (265 - 497 ug/dL) 203 L Ferritin (6.24 - 137 ng/mL) 194.0 H Vitamin B12 (239 - 931 pg/mL) > 1000 H Folate (2.76 - 20.0 ng/mL) 7.1 Hematology CBC w Diff NO MAN DIFF REQ WBC (4.8 - 10.8 /CUMM) 7.8 RBC (4.20 - 5.40 /CUMM) 2.61 L Hgb (12.0 - 16.0 G/DL) 7.8 L Hct (37 - 47 %) 23.7 L MCV (81.0 - 99.0 FL) 90.8 MCH (27.0 - 31.0 PG) 29.9 RDW (11.5 - 14.5 %) 16.3 H Plt Count (130 - 400 /CUMM) 237 MPV (7.4 - 10.4 FL) 8.8 Gran % (42.2 - 75.2 %) 68.7 Lymphocytes % (20.5 - 51.1 %) 19.7 L Monocytes % (1.7 - 9.3 %) 5.4 Eosinophils % (0 - 5 %) 5.5 H Basophils % (0.0 - 2.0 %) 0.7 Absolute Granulocytes (1.4 - 6.5 /CUMM) 5.4 Absolute Lymphocytes (1.2 - 3.4 /CUMM) 1.5 Lymphocytes (%) 12 Absolute Monocytes (0.10 - 0.60 /CUMM) 0.4 Absolute Eosinophils (0.0 - 0.7 /CUMM) 0.4 Absolute Basophils (0.0 - 0.2 /CUMM) 0.1 % Normal PMNs (%) 8 PUBS MCHC (33.0 - 37.0 G/DL) 32.9 L Misc Hematology Test (%) Other Body Source Fluid WBC (0 - 5 /CUMM) 9 H Fld Mesothelial Cells (%) 76 Fld Total RBCs Counted (0 /CUMM) 14 H Toxicology Random Vancomycin (ug/ml) 16.1 05/07 1556 Hematology CBC w Diff NO MAN DIFF REQ WBC (4.8 - 10.8 /CUMM) 11.9 H RBC (4.20 - 5.40 /CUMM) 2.49 L Hgb (12.0 - 16.0 G/DL) 7.6 L Hct (37 - 47 %) 22.9 L MCV (81.0 - 99.0 FL) 91.8 MCH (27.0 - 31.0 PG) 30.5 RDW (11.5 - 14.5 %) 15.5 H Plt Count (130 - 400 /CUMM) 228 MPV (7.4 - 10.4 FL) 8.4 Gran % (42.2 - 75.2 %) 84.1 H Lymphocytes % (20.5 - 51.1 %) 8.0 L Monocytes % (1.7 - 9.3 %) 6.2 Eosinophils % (0 - 5 %) 1.5 Basophils % (0.0 - 2.0 %) 0.2 Absolute Granulocytes (1.4 - 6.5 /CUMM) 10.0 H Absolute Lymphocytes (1.2 - 3.4 /CUMM) 1.0 L Absolute Monocytes (0.10 - 0.60 /CUMM) 0.7 H Absolute Eosinophils (0.0 - 0.7 /CUMM) 0.2 Absolute Basophils (0.0 - 0.2 /CUMM) 0 PUBS MCHC (33.0 - 37.0 G/DL) 33.3
--- NOTE | 2017-02-03 13:06 | ECHOCARDIOGRAM REPORT ---
TERI BORRERO Age: 31 : 1985 Gender: F Exam Date: 02/02/2017 16:58 Exam Location: [address] [place] [address] Ht (in): 61 Wt (lb): 176 BSA: 1.89 BP: 160 / 96 Ordering Physician: EMORY VEGA MD Referring Physician: Gudelia Mariee MD Technologist: Spring Cameron [facility] Room Number: 218 Indications: HYPERTENSION Rhythm: Sinus Technical Quality: Fair, Technically difficult study FINDINGS Left Ventricle Normal size left ventricle. No obvious regional wall motion abnormalities. Left ventricular wall thickness severely increased. Normal left ventricular ejection fraction estimated at 65-70%. Right Ventricle Right ventricle not well visualized, grossly normal. Right Atrium Right atrium not well visualized, grossly normal. Left Atrium Moderate left atrial dilatation. Mitral Valve Mitral valve thickened. Moderate mitral annular calcification. Mild mitral regurgitation. Aortic Valve Trileaflet aortic valve. Diffuse thickening (sclerosis) of the aortic valve cusps without reduced excursion. No aortic stenosis. No aortic regurgitation. Tricuspid Valve Tricuspid valve not well visualized, grossly normal. Mild tricuspid regurgitation. Pulmonic Valve Pulmonic valve not well visualized, grossly normal. Mild pulmonic regurgitation. Pericardium No pericardial effusion. Left pleural effusion. Great Vessels Normal size aortic root and proximal ascending aorta. CONCLUSIONS 1. Minimal aortic sclerosis is present with no valvular stenosis or insufficiency. 2. Mitral leaflet thickening is present with mild to moderate anular calcification and mild mitral insufficiency with moderate left atrial enlargement. 3. There is no pericardial fluid detected. 4. A moderate sized left pleural effusion is present. 5. The left ventricular chamber size and systolic function are normal with a normal ejection fraction. Severe concentric hypertrophy is present with diastolic dysfunction noted. 6. Mild tricuspid and pulmonic insufficiency are present with no evidence of pulmonary hypertenion. Gudelia Mariee M.D. (Electronically Signed) Final Date: 03 Feb 2017 13:05 MEASUREMENTS (Male / Female) Normal Values 2D ECHO LV Diastolic Diameter PLAX 4.1 cm 4.2 - 5.9 / 3.9 - 5.3 cm LV Systolic Diameter PLAX 2.8 cm 2.1 - 4.0 cm LV Fractional Shortening PLAX 31.7 % 25 - 46 % LV Ejection Fraction 2D Teich 60.2 % IVS Diastolic Thickness 2.1 cm LVPW Diastolic Thickness 1.9 cm LV Relative Wall Thickness 1.0 RV Internal Dim ED PLAX 3.1 cm 1.9 - 3.8 cm LVOT Diameter 2.0 cm Aortic Root Diameter 2.8 cm LA Systolic Diameter LX 5.1 cm 3.0 - 4.0 / 2.7 - 3.8 cm LA Volume 81.0 cm 18 - 58 / 22 - 52 cm Ascending Aorta Diameter 3.0 cm DOPPLER AV Peak Velocity 183.0 cm/s AV Peak Gradient 13.4 mmHg AV Mean Velocity 122.0 cm/s AV Mean Gradient 7.0 mmHg AV Velocity Time Integral 34.6 cm LVOT Peak Velocity 156.0 cm/s LVOT Peak Gradient 9.7 mmHg LVOT Mean Velocity 112.0 cm/s LVOT Mean Gradient 6.0 mmHg LVOT Velocity Time Integral 28.8 cm LVOT Stroke Volume 90.5 cm AV Area Cont Eq vti 2.6 cm AV Area Cont Eq pk 2.7 cm MV Peak Velocity 164.0 cm/s MV Peak Gradient 10.8 mmHg MV Mean Velocity 95.9 cm/s MV Mean Gradient 4.0 mmHg Mitral E Point Velocity 150.0 cm/s Mitral A Point Velocity 82.3 cm/s Mitral E to A Ratio 1.8 MV PHT Velocity 164.0 cm/s MV Deceleration [place] 385.0 cm/s MV Pressure Half Time 127.8 ms MV Area PHT 1.7 cm MV Deceleration Time 324.0 ms TR Peak Velocity 276.0 cm/s TR Peak Gradient 30.5 mmHg Right Atrial Pressure 5.0 mmHg Pulmonary Artery Systolic Pressu 35.5 mmHg Right Ventricular Systolic Press 35.5 mmHg PV Peak Velocity 143.0 cm/s PV Peak Gradient 8.2 mmHg PV Mean Velocity 99.3 cm/s PV Mean Gradient 5.0 mmHg PV Velocity Time Integral 33.2 cm LV E' Lateral Velocity 6.0 cm/s Mitral E to LV E' Lateral Ratio 24.8 LV E' Septal Velocity 8.0 cm/s Mitral E to LV E' Septal Ratio 18.8
[2017-02-03 15:03] VITALS: BP 132/74
--- NOTE | 2017-02-03 15:03 | NUR ---
PT IS SCHEDULED FOR ASHLEY CATH PLACEMENT 02/04/17 AT 0800. IR STAFF WANTS PT IN IR BY 0745 AND NPO AT MIDNIGHT.
[2017-02-03 22:47] VITALS: BP 122/80
--- NOTE | 2017-02-04 06:33 | PN- Housestaff ---
FLAVIA COTA,THI 02/04/17 0631: Subjective Follow-up For: ESRD on peritoneal dialysis Going for right IJ catheter placement Subjective: I saw the patient today morning She reports having a rough night, anxious about the procedure. She received a dose of dilaudid before going to the procedure. I did a guiac this morning - Negative. Review of Systems Constitutional: Reports: see HPI. Comments: ROS negative except the above. Objective Last 24 Hrs of Vital Signs/I&O Vital Signs Date Time Temp Pulse Resp B/P B/P Pulse O2 O2 Flow FiO2 Mean Ox Delivery Rate 02/04 0000 Room Air 02/03 2247 98.0 68 19 122/80 98 Room Air 02/03 2230 68 122/80 02/03 1630 98 Room Air Room Air 02/03 1606 73 136/74 02/03 1600 Room Air 02/03 1503 98.6 60 20 132/74 94 Room Air 02/03 1333 95 Room Air 02/03 0808 68 135/71 02/03 0801 68 135/71 02/03 0801 68 135/71 02/03 0800 68 135/71 02/03 0700 98.2 68 20 135/71 91 Room Air 02/03 0659 68 135/71 Intake & Output 02/04 0800 02/04 0000 02/03 1600 Intake Total 610 Output Total 200 1700 1600 Balance -200 -1700 -990 Intake, IV 10 Intake, Oral 600 Output, 200 1700 1600 Dialysate Output, Urine 0 Patient 80.796 kg 80.739 kg Weight Weight Standing Scale Measurement Method Physical Exam General Appearance: Alert, Oriented X3, Cooperative, Mild Distress Skin: No Rashes, No Breakdown HEENT: Atraumatic, PERRLA Neck: Supple Cardiovascular: Normal S1, Normal S2, systolic murmur Lungs: Normal Air Movement, decreased breath sounds at bases Abdomen: Normal Bowel Sounds, Soft, No Tenderness Neurological: Normal Tone, Sensation Intact, Cranial Nerves 3-12 NL Extremities: No Clubbing, No Cyanosis, 2+ pitting edema Vascular: Normal Pulses, Pulses Symmetrical Current Medications: Current Medications Sig/Bryan Start time Last Medication Dose Route Stop Time Status Admin Acetaminophen 650 MG Q6P PRN 01/31 0730 AC PO Albuterol Sulfate 2 PUF Q4P PRN 02/03 2200 AC 02/04 INH 0044 Albuterol Sulfate 3 ML Q4P PRN 02/01 2000 AC 02/03 INH 1626 Alprazolam 0.5 MG BID PRN 02/01 1133 AC 02/04 PO 02/08 1132 0011 Amlodipine Besylate 10 MG DAILY 01/31 1000 AC 02/03 PO 0808 Calcium 600 MG BID 01/31 1000 AC 02/03 PO 2231 Clonidine 1 PAT Q168 02/04 1000 AC TOP Clonidine 1 PAT QWED 02/03 0700 DC 02/03 TOP 0659 Epoetin Carlos 30,000 UNIT Q 2 WEEKS 02/14 1000 AC SC Ferrous Sulfate 325 MG TID 02/01 1600 AC 02/03 PO 2231 Hydralazine HCl 100 MG TID 01/31 1000 AC 02/03 PO 2231 Hydromorphone HCl 1 MG Q4 HRS NEEDED PRN 02/02 2015 AC 02/04 IV 0351 Labetalol HCl 300 MG BID 01/31 1000 AC 02/03 PO 2230 Lidocaine 1 PAT DAILY 02/03 1000 AC EXT Losartan Potassium 100 MG DAILY 01/31 1000 AC 02/03 PO 0801 Omeprazole 20 MG BID 02/03 1000 AC 02/03 PO 2227 Ondansetron HCl 4 MG .STK-MED ONE 02/03 0812 DC PO 02/03 0813 Ondansetron HCl 4 MG Q6-PRN PRN 01/31 0915 AC 02/03 PO 0811 Oxycodone/ 1 TAB Q6P PRN 01/31 1215 AC 02/02 Acetaminophen PO 1216 Patient Medication 1 ED ONE ONE 02/03 1400 DC Teaching ED 02/03 1401 Last 24 Hrs of Lab/Ashwin Results Last 24 Hrs of Labs/Mics: Laboratory Tests 02/04/17 0805: Total Beta HCG NEGATIVE Lines/Diet/Fluids Lines: tunneled IJ catheter Assessment/Plan Assessment: 31 y/o F with PMHx of ESRD on peritoneal dialysis, HTN and anemia who presents fluid overload after being noncomplaint with her dialysis sessions. Volume overload in the setting of ESRD In the setting of noncompliance with peritoneal dialysis, although current presentation is concerning for CHF in view of PND, orthopnea and longstanding HTN. ProBNP is 254,000. No signs of infection of peritoneal fluid/pneumonia. * Nephrology following. Appreciate their recs. * Continue aggressive ultrafiltration peritoneal dialysis for nephrology. * moderate left sided pleural effusion present. * Underwent IR guided IJ catheter placement followed by dialysis. * we will proceed with a repeat session tomorrow. Pleuritic pain Patient reports persistent pain in her chest which is worse with breathing, getting better with Dilaudid. Pain management is consulted as she appears pain seeking. * Currenlty on dialudid 1mg Q4hrs, percocet Q6PRN. HTN BP has been elevated to 180s/110s this admission despite being on amlodipine, labetalol, losartan and hydralazine. Suspect that medication noncompliance and volume overload may be playing a major role. ECHO 07/12 - EF of 65-70% with concentric LVH, diastolic dysfunction. * Cardiology consulted. Appreciate their recs. * continue hydralazine, losartan, labetalol, amlodipine, clonidine patch. * ECHO shows similar finding with EF of 65-70%. * No pericardial effusion - but there is a moderate left pleural effusion. Anemia of multifactorial origin Hgb in the 7-8 range. Likely multifactorial, secondary to iron deficiency, ESRD and missing her last outpatient Epogen dose. * Patient started on ferrous sulfate 325 mg PO TID given iron studies with low iron. * Iron studies show Anemia of chronic disease (ESRD) with high ferritin, low iron. * Vitamin B12 >1000, folate 7.1 * Discontinued Epogen as given with dialysis now. Chronic and stable conditions Anxiety: Xanax 0.5mg as needed Esophagitis: omez 20mg BID Nausea: ondansetrone 4mg Q4-6hr as needed. Depression: Escitalopram Diet: Renal Dialysis DVT PPx: ALPs CODE: FULL Problem List: 1. Shortness of breath 2. Uncontrolled hypertension 3. CRF ON HEMODIALYSIS 4. ESRD Pain Ratin Pain Location: pleuritic chest pain Pain Goal: Pain 4 or less Pain Plan: Dilaudid 1mg Q4hrs Tomorrow's Labs & Rationales: bep to monitor cr levels. CHITRA CARLSON MD 02/04/17 1145: Attending MD Review Statement Attending Statement Attending MD Statement: examined this patient, discuss w/resident/PA/OUTSIDE SALES INSPECTOR, agreed w/resident/PA/OUTSIDE SALES INSPECTOR, reviewed EMR data (avail), discussed with nursing, discussed with case mgmt, amended to note Attending Assessment/Plan: Resting comfortably and not in any acute distress. Dialysis access was placed into the left internal jugular vein this morning. She will undergo hemodialysis today. She continues to report pleuritic Chest pain and continues to request Dilaudid IV for pain control. Echocardiogram was done yesterday showed no pericardial effusion. It did show evidence of pleural effusion. Patient is currently afebrile hemodynamically stable. She did not require oxygen supplementation. She denies shortness of breath with exertion. Denies cough. Recommendations: -Pleural effusion noted on imaging is likely secondary to volume overload from inefficient dialysis. She is scheduled to undergo hemodialysis today. We'll monitor closely for for any worsening of symptoms. If patient begins to require oxygen supplementation will pursue chest imaging. -Continue current pain regimen. She has Dilaudid IV ordered as well as Lidoderm patch. She refuses to consider any other analgesic regimen for now. -No evidence of bleeding. We'll continue to monitor her hemoglobin level.
[2017-02-04 06:42] VITALS: BP 132/84
--- NOTE | 2017-02-04 07:02 | NUR ---
PT SCHEDULED FOR ASHLEY CATH PLACEMENT THIS AM, WHEN ATTEMPTING TO DOUBLE CHECK, ORDER WAS NO LONGER SHOWING FOR PT. SPOKE WITH [facility] #[id number] AND WHEN CHECKING AGAIN WITH MD WE WERE ABLE TO SEE THE ORDER ON HER END. PER MD SHE WILL BE CALLING IR TO VERIFY THERE ARE NO PROBLEMS. VERBAL ORDER TO LEAVE PT EMPTY RECEIVED. PT REQUESTING TO RECEIVE PAIN MEDS EARLY R/T ANXIETY OF PAIN RETURNING DURING PROCEDURE B/C OF MISSED DOSE. OK TO GIVE DILAUDID DIRECTLY BEFORE PT LEAVING THE FLOOR.
--- NOTE | 2017-02-04 08:02 | NUR ---
NURSING NOTE: PATIENT LEFT FLOOR FOR IR WITH DISTRIBUTION VIA STRETCHER FOR ASHLEY CATH PLACEMENT. PATIENT MEDICATED FOR PAIN PRIOR TO LEAVING FLOOR. CHECK LIST COMPLETED. WILL AWAIT RETURN.
--- NOTE | 2017-02-04 10:01 | INTERVENTIONAL RADIOLOGY RPT ---
CLINICAL HISTORY: The patient is a 31-year-old female with ESRD, who presents to interventional radiology for placement of a tunneled central venous catheter for hemodialysis. PROCEDURES: 1. Real-time ultrasound-guided access into the left internal jugular vein after documentation of selected vessel patency, and permanent imaging storing in the patient records. 2. Placement of a tunneled 15.5 Fr 23 cm tip to cuff length dual lumen central venous catheter. PHYSICIANS: Dr. Luis Manuel Brower (attending). The attending radiologist was present during the procedure and related imaging, and reviewed the report. MONITORING: The procedure was performed with conscious sedation and analgesia under my direct supervision. Continuous blood pressure, pulse oximetry as well as heartrate monitoring was performed by an independent registered nurse. Physician intraservice sedation time was 25 minutes. MEDICATIONS: 1. 3.5 mg of Versed and 1.75 micrograms of fentanyl were administered. 2. 20 mL of 1% lidocaine SQ. 3. 10 mL of 1% lidocaine with epinephrine SQ. COMPLICATIONS: None. ESTIMATED BLOOD LOSS: <5 mL SPECIMENS: None. CONTRAST: None. FLUOROSCOPY TIME: 0.7 minutes PROCEDURE NOTE: Informed consent was obtained from the patient prior to the procedure. During this process, the procedure and potential alternatives were explained along with the intended outcome and benefits. The risks of the procedure, including the possibility of an unsuccessful procedure, as well as the risk of not doing the procedure, were discussed. The patient was given the opportunity to ask questions regarding the procedure and appeared competent to make decisions. A signed consent form documenting this discussion was placed in the medical record. A time-out procedure was performed. The patient was placed supine on the fluoroscopy table. The pulmonary ultrasound evaluation demonstrated an occluded lower right internal jugular vein. The left internal jugular vein was patent. The left neck and chest were prepped and draped in usual sterile fashion. All elements of maximal sterile barrier technique followed including use of cap, mask, sterile gown, sterile gloves, a sterile full body drape and hand hygiene. Also followed skin preparation with 2% chlorhexidine for cutaneous antisepsis, and sterile ultrasound preparation with sterile gel and probe cover when applicable. Local anesthesia was administered to the access site with lidocaine. The left internal jugular vein was accessed using ultrasound with a 5 Fr Micropuncture set. A 0.018 wire was advanced into the high right atrium for measuring purposes. The 0.018 wire was subsequently exchanged for a 0.035 short Amplatz wire that was advanced to the IVC to maintain access during the tunneling process. Next, subcutaneous lidocaine was administered to the chest, and a subcutaneous tunnel that connects to the venotomy site was created using blunt dissection. The dialysis catheter was sized for the correct tunnel length. The catheter was then pulled through the tunnel. The micropuncture set sheath in the IJ was exchanged over the wire for sequential dilators and lastly a peel-away sheath. The inner dilator and the Amplatz wire were removed, and the catheter was advanced through the sheath. The sheath was peeled away. The catheter was tested, flushed, and sutured to the skin with its tip in the right atrium. A 5-0 Vicryl suture was placed at the neck dermatotomy site. The catheter ports were packed with heparin per routine protocol. FINDINGS: 1. Lower right internal jugular vein is occluded. Patent left internal jugular vein. 2. Tip of catheter in the right atrium. 3. Catheter flushes and aspirates very well with a 10 mL syringe. 4. No pneumothorax. IMPRESSION: Successful and uncomplicated placement of a left internal jugular hemodialysis catheter. PLAN: 1. The patient was stable after the procedure and was transferred to the interventional recovery area. The patient will be transferred back to her medical room. 2. The catheter may be used immediately. 3. The suture securing the catheter should remain in place for 4 weeks or greater.
--- NOTE | 2017-02-04 10:33 | NUR ---
NURSING NOTE: REPORT CALLED FROM RADIOLOGY. PATIENT TOLERATED ASHLEY CATH PLACEMENT PROCEDURE WELL. RECOVERED WELL. DISTRIBUTION CAME TO FLOOR TO PHOTO TECHNICIAN PATIENT'S BED AND RBING TO HEMODIALYSIS. PATIENT WILL TRANSP[facility]AIGHT FROM IR TO [facility].
--- NOTE | 2017-02-04 11:09 | NUR ---
NURSING NOTE: PATIENT CALLLED FROM HEMODIALYSIS ROOM 186 ASKING FOR A STAFF MEMEBER TO BRING HER BLACK AND WHITE BELONGING BAG DOWN TO DIALYSIS FOR HER. MST LORENA TO BRING BAG DOWNSTAIRS. WILL AWAIT RETURN. NPO STATUS CHANGED BACK TO RENAL DIALYSIS MEALS. PATIENT WILL ORDER AND HAVE LUNCH DOWNSTAIRS IN DIALYSIS.
[2017-02-04 12:14] LABS: ABSOLUTE BASOPHIL COUNT 0 /CUMM (0.0-0.2); ABSOLUTE EOSINOPHIL COUNT 0.4 /CUMM (0.0-0.7); ABSOLUTE GRANULOCYTE CT 4.2 /CUMM (1.4-6.5); ABSOLUTE LYMPH COUNT 1.6 /CUMM (1.2-3.4); ABSOLUTE MONOCYTE COUNT 0.4 /CUMM (0.10-0.60); BASOPHIL % 0.7 % (0.0-2.0); EOSINOPHIL % 5.8 % (0-5); GRANULOCYTE % 62.7 % (42.2-75.2); HEMATOCRIT 23.1 % (37-47); MEAN CORPUSCULAR HGB 29.6 PG (27.0-31.0); MEAN CORPUSCULAR HGB CONC 32.9 G/DL (33.0-37.0); MEAN PLATELET VOLUME 8.5 FL (7.4-10.4); PLATELET COUNT 283 /CUMM (130-400); RBC DISTRIBUTION WIDTH 15.4 % (11.5-14.5); RED BLOOD CELL CT 2.57 /CUMM (4.20-5.40); WHITE BLOOD CELL COUNT 6.7 /CUMM (4.8-10.8)
--- NOTE | 2017-02-04 14:08 | PN- Nephrology ---
Assessment/Plan Assessment: 1. ESRD 2. Volume overload with CHF; was not adequately ultrafiltering on PD despite aggresive regimen 3. Hypertension 4. Anemia 5. History of poor compliance with medications and dialysis regimen Suggestion: 1. Hemodialysis today in progress with 3 L ultrafiltration goal over 3.5 hours 2. Will hemodialyze again tomorrow and then reassess 3. For now, will keep PD catheter in place in case there are problems with her [place] catheter 4. Willl arrange for an outpatient hemodialysis slot for next week 5. Will also arrange for creation of a permanent vascular access after she has been discharged 6. Please discontinue subcutaneous Epogen; I will order with hemodialysis Subjective Subjective: There has been no significant change in her weight or ultrafiltration despite alternating 2.5% with 4.25% dextrose solutions every 4 hours. I suspect that her peritoneal membrane is failing. She had a left IJ tunneled catheter inserted earlier today and her first hemodialysis is currently in progress with plan for 3 L ultrafiltration. She has no new complaints today. Objective Vital Signs and I&Os Vital Signs Date Time Temp Pulse Resp B/P B/P Pulse O2 O2 Flow FiO2 Mean Ox Delivery Rate 02/04 0755 Room Air 02/04 0642 98.3 65 22 132/84 95 Room Air 02/04 0000 Room Air 02/03 2247 98.0 68 19 122/80 98 Room Air 02/03 2230 68 122/80 02/03 1630 98 Room Air Room Air 02/03 1606 73 136/74 02/03 1600 Room Air 02/03 1503 98.6 60 20 132/74 94 Room Air Intake & Output 02/04 1600 02/04 0400 02/03 1600 02/03 0400 02/02 1600 02/02 0400 Intake Total 227 237 4395 220 Output Total 200 1700 2100 700 2200 1200 Balance -200 -1700 -1370 -440 -580 -980 Intake, 600 100 Dialysate Intake, IV 10 20 Intake, Oral 409 654 6123 120 Output, 200 1700 2100 700 2200 1200 Dialysate Output, Urine 0 Patient 178 lb 178 lb 179 lb Weight Weight Standing Scale Standing Scale Measurement Method Physical Exam: General: Well-developed, obese white female still complaining of some difficulty breathing but in no acute distress Skin: No rash or jaundice HEENT: Facial edema, conjunctivae pale, sclerae anicteric, mucous membranes moist Neck: Without masses or thyromegaly, no supraclavicular or cervical adenopathy Chest: Rales on right, poor air entry on left with diminished breath sounds at both bases Heart: Regular rate and rhythm without S3 or rub Abdomen: Soft and nontender without palpable masses or organomegaly Extremities: + edema, no cyanosis Neuro: No focal findings, no asterixis or myoclonus Current Medications: Current Medications Sig/Bryan Start time Last Medication Dose Route Stop Time Status Admin Acetaminophen 650 MG Q6P PRN 01/31 0730 AC PO Albuterol Sulfate 2 PUF Q4P PRN 02/03 2200 AC 02/04 INH 0044 Albuterol Sulfate 3 ML Q4P PRN 01/31 2000 AC 02/03 INH 1626 Alprazolam 0.5 MG BID PRN 02/01 1133 AC 02/04 PO 02/08 1132 0011 Amlodipine Besylate 10 MG DAILY 01/31 1000 AC 02/03 PO 0808 Calcium 600 MG BID 01/31 1000 AC 02/03 PO 2231 Clonidine 1 PAT Q168 02/04 1000 AC TOP Clonidine 1 PAT QWED 02/03 0700 DC 02/03 TOP 0659 Epoetin Carlos 30,000 UNIT Q 2 WEEKS 02/14 1000 AC SC Fentanyl Citrate 0 .STK-MED ONE 02/04 857 DC .ROUTE Ferrous Sulfate 325 MG TID 02/01 1600 AC 02/03 PO 2231 Heparin Sodium 0 .STK-MED ONE 02/04 0658 DC (Porcine) IV Hydralazine HCl 100 MG TID 01/31 1000 AC 02/03 PO 2231 Hydromorphone HCl 1 MG Q4 HRS NEEDED PRN 02/02 2015 AC 02/04 IV 1320 Labetalol HCl 300 MG BID 01/31 1000 AC 02/03 PO 2230 Lidocaine 0 .STK-MED ONE 02/04 0914 DC .ROUTE Lidocaine 0 .STK-MED ONE 02/04 659 DC .ROUTE Lidocaine 1 PAT DAILY 02/03 1000 AC EXT Lidocaine/Epinephrine 0 .STK-MED ONE 02/04 659 DC .ROUTE Losartan Potassium 100 MG DAILY 01/31 1000 AC 02/03 PO 0801 Midazolam HCl 0 .STK-MED ONE 02/04 857 DC .ROUTE Omeprazole 20 MG BID 02/03 1000 AC 02/03 PO 2227 Ondansetron HCl 4 MG Q6-PRN PRN 01/31 0915 AC 02/03 PO 0811 Oxycodone/ 1 TAB Q6P PRN 01/31 1215 AC 02/02 Acetaminophen PO 1216 Results Pertinent Lab Results: Laboratory Tests 02/04 02/04 02/04 1227 1145 1145 Chemistry Sodium (137 - 145 mmol/L) Cancelled 128 L Potassium (3.5 - 5.1 mmol/L) Cancelled 4.6 Chloride (98 - 107 mmol/L) Cancelled 91 L Carbon Dioxide (22 - 30 mmol/L) Cancelled 28 Anion Gap (5 - 16) Cancelled 10 BUN (7 - 17 mg/dL) Cancelled 49 H Creatinine (0.5 - 1.0 mg/dL) Cancelled 10.8 *H Estimated GFR (>60 ml/min) 4 L BUN/Creatinine Ratio (7 - 25 %) Cancelled 4.5 L Calcium (8.4 - 10.2 mg/dL) Cancelled 7.7 L Phosphorus (2.5 - 4.5 mg/dL) Cancelled 4.6 H Magnesium (1.6 - 2.3 mg/dL) Cancelled 1.7 Albumin (3.5 - 5.0 g/dL) Cancelled 2.4 L Hematology CBC w Diff NO MAN DIFF REQ WBC (4.8 - 10.8 /CUMM) 6.7 RBC (4.20 - 5.40 /CUMM) 2.57 L Hgb (12.0 - 16.0 G/DL) 7.6 L Hct (37 - 47 %) 23.1 L MCV (81.0 - 99.0 FL) 90.0 MCH (27.0 - 31.0 PG) 29.6 RDW (11.5 - 14.5 %) 15.4 H Plt Count (130 - 400 /CUMM) 283 MPV (7.4 - 10.4 FL) 8.5 Gran % (42.2 - 75.2 %) 62.7 Lymphocytes % (20.5 - 51.1 %) 24.3 Monocytes % (1.7 - 9.3 %) 6.5 Eosinophils % (0 - 5 %) 5.8 H Basophils % (0.0 - 2.0 %) 0.7 Absolute Granulocytes (1.4 - 6.5 /CUMM) 4.2 Absolute Lymphocytes (1.2 - 3.4 /CUMM) 1.6 Absolute Monocytes (0.10 - 0.60 /CUMM) 0.4 Absolute Eosinophils (0.0 - 0.7 /CUMM) 0.4 Absolute Basophils (0.0 - 0.2 /CUMM) 0 PUBS MCHC (33.0 - 37.0 G/DL) 32.9 L Serology Hepatitis A IgM Ab (NONREACTIVE) NONREACTIVE Hep Bs Antigen (NONREACTIVE) NONREACTIVE Hep Bs Antibody (NONREACTIVE) Cancelled NONREACTIVE Hep B Core IgM Ab Conf (NONREACTIVE) NONREACTIVE Hepatitis C Antibody (NONREACTIVE) NONREACTIVE 02/04 02/03 0805 0645 Chemistry Sodium (137 - 145 mmol/L) 130 L Potassium (3.5 - 5.1 mmol/L) 4.4 Chloride (98 - 107 mmol/L) 91 L Carbon Dioxide (22 - 30 mmol/L) 27 Anion Gap (5 - 16) 13 BUN (7 - 17 mg/dL) 50 H Creatinine (0.5 - 1.0 mg/dL) 11.2 *H Estimated GFR (>60 ml/min) 4 L BUN/Creatinine Ratio (7 - 25 %) 4.5 L Total Beta HCG (NEGATIVE) NEGATIVE
--- NOTE | 2017-02-04 14:28 | NUR ---
NURSING NOTE: THIS RN SPOKE WITH DR. GONZALES AND TOOK A VERBAL ORDER THAT THE PATIENT WILL NO LONGER BE GETTING PERITONEAL DIALYSIS DURING THIS HOSPITAL STAY. THE INTERVENTION HAS BEEN COMPLETED. WILL CONTINUE TO MONITOR WITH PATIENT GETTING HEMODIALYSIS.
[2017-02-04 16:01] VITALS: BP 160/80
--- NOTE | 2017-02-04 19:43 | NUR ---
NURSING NOTE: PATIENT RETURNED TO FLOOR FROM HEMODIALYSIS. PATIENT IN SEVERE PAIN. MEDICATIONS GIVEN PER ORDER. WILL CONTINUE TO MONITOR.
[2017-02-04 22:34] VITALS: BP 139/65
--- NOTE | 2017-02-05 07:11 | PN- Housestaff ---
FLAVIA COTA,THI 02/05/17 0710: Subjective Follow-up For: ESRD on dialysis Left sided pleural effusion Subjective: I saw and examined the patient today morning She reports having a rough night, unable to sleep secondary to pain. In addition to her regular dose of dilaudid 1mg Q4hrs, received 0.6mg & 0.4mg over night; also took xanax for anxiety. She is asking for more dilaudid and not willing to try ketorolac/lidocaine patch. Review of Systems Constitutional: Reports: see HPI. Comments: ROS negative except the above. Objective Last 24 Hrs of Vital Signs/I&O Vital Signs Date Time Temp Pulse Resp B/P B/P Pulse O2 O2 Flow FiO2 Mean Ox Delivery Rate 02/04 2234 98.5 75 20 139/65 97 Room Air 02/04 2017 76 140/66 02/04 2017 76 140/66 02/04 1850 97 Room Air 02/04 1601 99.1 73 20 160/80 96 Room Air 02/04 1548 160/80 02/04 1547 160/80 02/04 1547 160/80 02/04 1546 160/80 02/04 1545 160/80 02/04 0755 Room Air Intake & Output 02/05 0800 02/05 0000 02/04 1600 Intake Total 240 Output Total Balance 240 Intake, Oral 240 Physical Exam General Appearance: Alert, Oriented X3, Cooperative, No Acute Distress Skin: No Rashes HEENT: Atraumatic, PERRLA, EOMI Neck: Supple Cardiovascular: Normal S1, Normal S2, systolic murmur present Lungs: Clear to Auscultation, Normal Air Movement Abdomen: Normal Bowel Sounds, Soft, No Tenderness Neurological: Normal Speech, Strength at 5/5 X4 Ext, Normal Tone, Sensation Intact Extremities: No Clubbing, No Cyanosis, 2+ edema over both the extremities Vascular: Pulses Symmetrical Current Medications: Current Medications Sig/Bryan Start time Last Medication Dose Route Stop Time Status Admin Acetaminophen 650 MG Q6P PRN 01/31 0730 AC PO Albuterol Sulfate 2 PUF Q4P PRN 02/03 2200 AC 02/04 INH 0044 Albuterol Sulfate 3 ML Q4P PRN 01/31 2000 AC 02/03 INH 1626 Alprazolam 0.5 MG BID PRN 02/01 1133 AC 02/05 PO 02/08 1132 0103 Amlodipine Besylate 10 MG DAILY 01/31 1000 AC 02/04 PO 1546 Calcium 600 MG BID 01/31 1000 AC 02/04 PO 2016 Clonidine 1 PAT Q168 02/04 1000 AC 02/04 TOP 1548 Epoetin Carlos 30,000 UNIT Q 2 WEEKS 02/14 1000 CAN SC Fentanyl Citrate 0 .STK-MED ONE 02/04 0857 DC .ROUTE Ferrous Sulfate 325 MG TID 02/01 1600 AC 02/04 PO 2016 Hydralazine HCl 100 MG TID 01/31 1000 AC 02/04 PO 2017 Hydromorphone HCl 0.4 MG ONCE ONE 02/05 0500 DC 02/05 IV 02/05 0501 0455 Hydromorphone HCl 0.6 MG ONCE ONE 02/05 2000 DC 02/04 IV 02/04 2001 2016 Hydromorphone HCl 1 MG Q4 HRS NEEDED PRN 02/02 2015 AC 02/05 IV 0617 Labetalol HCl 300 MG BID 01/31 1000 AC 02/04 PO 2017 Lidocaine 0 .STK-MED ONE 02/04 0914 DC .ROUTE Lidocaine 1 PAT DAILY 02/03 1000 AC EXT Lorazepam 0.5 MG ONE ONE 02/04 2345 DC 02/04 PO 02/04 2346 2354 Losartan Potassium 100 MG DAILY 01/31 1000 AC 02/04 PO 1547 Midazolam HCl 0 .STK-MED ONE 02/04 0857 DC .ROUTE Omeprazole 20 MG BID 02/03 1000 AC 02/04 PO 2016 Ondansetron HCl 4 MG Q6-PRN PRN 01/31 0915 AC 02/03 PO 0811 Oxycodone/ 1 TAB Q6P PRN 01/31 1215 AC 02/05 Acetaminophen PO 0341 Last 24 Hrs of Lab/Ashwin Results Last 24 Hrs of Labs/Mics: Laboratory Tests 02/05/17 1100: Anion Gap 8, Estimated GFR 8 L, BUN/Creatinine Ratio 3.7 L, Calcium 8.2 L, CBC w Diff NO MAN DIFF REQ, RBC 2.71 L, MCV 91.9, MCH 29.7, RDW 15.7 H, MPV 8.3, Gran % 60.7, Lymphocytes % 22.8, Monocytes % 10.2 H, Eosinophils % 5.9 H, Basophils % 0.4, Absolute Granulocytes 4.0, Absolute Lymphocytes 1.5, Absolute Monocytes 0.7 H, Absolute Eosinophils 0.4, Absolute Basophils 0, PUBS MCHC 32.3 L Assessment/Plan Assessment: 31 y/o F with PMHx of ESRD on peritoneal dialysis, HTN and anemia who presents fluid overload after being noncomplaint with her dialysis sessions. ESRD on hemodialysis -- Overload In the setting of noncompliance with peritoneal dialysis, although current presentation is concerning for CHF in view of PND, orthopnea and longstanding HTN. ProBNP is 254,000. No signs of infection of peritoneal fluid/pneumonia. * Nephrology following. Appreciate their recs. * moderate left sided pleural effusion present. * Left IJ tunneled catheter in place, undergoing series of dialysis. * Arrangements made to send her to [facility] dialysis center () next week. * Dialysis repeat tomorrow and then wednesday. Pleuritic pain Patient reports persistent pain in her chest which is worse with breathing, getting better with Dilaudid. Pain management is consulted as she appears pain seeking. * Currenlty on dialudid 1mg Q4hrs, percocet Q6PRN. * Added ketorolac and lidocaine patch - not willing to take. HTN BP has been elevated to 180s/110s this admission despite being on amlodipine, labetalol, losartan and hydralazine. Suspect that medication noncompliance and volume overload may be playing a major role. ECHO 07/12 - EF of 65-70% with concentric LVH, diastolic dysfunction. * Cardiology consulted. Appreciate their recs. * continue hydralazine, losartan, labetalol, amlodipine, clonidine patch. * ECHO shows similar finding with EF of 65-70%. * No pericardial effusion - but there is a moderate left pleural effusion. Anemia of multifactorial origin Hgb in the 7-8 range. Likely multifactorial, secondary to iron deficiency, ESRD and missing her last outpatient Epogen dose. * Patient started on ferrous sulfate 325 mg PO TID given iron studies with low iron. * Iron studies show Anemia of chronic disease (ESRD) with high ferritin, low iron. * Vitamin B12 >1000, folate 7.1 * Discontinued Epogen as given with dialysis now. Chronic and stable conditions Anxiety: Xanax 0.5mg as needed Esophagitis: omez 20mg BID Nausea: ondansetrone 4mg Q4-6hr as needed. Depression: Escitalopram Diet: Renal Dialysis DVT PPx: ALPs CODE: FULL Problem List: 1. CRF ON HEMODIALYSIS 2. ESRD 3. HYPERTENSIVE URGENCY 4. Pleural effusion Pain Ratin Pain Location: catheter insertion site chest pain Pain Goal: Pain 4 or less Pain Plan: Diaudid 1mg Q4hrs Ketorolac lidocaine patch Tomorrow's Labs & Rationales: bep to monitor cr ROBYN COTA,ARSENIOZEESHANAVIVA 02/05/17 1221: Attending MD Review Statement Attending Statement Attending MD Statement: examined this patient, discuss w/resident/PA/CAR SHAGGER, agreed w/resident/PA/CAR SHAGGER, reviewed EMR data (avail), discussed with nursing, amended to note Attending Assessment/Plan: Chest seen and examined. Lying in bed. Complaining of pain at the site of dialysis access placement. Denies cough or present. Denies palpitations. She remains afebrile hemodynamically stable. She underwent hemodialysis for the facility yesterday and is scheduled to undergo another session today and tomorrow. She has started to lose weight after initiation of hemodialysis. On examination she appears slightly less edematous today. Lungs are clear bilaterally. Abdomen is soft and nontender. She has trace pedal edema. Problems: 1. End-stage renal disease with failed peritoneal dialysis. Now undergoing hemodialysis. 2. Hypertension; poorly controlled due to poor compliance. 3. Chest pain; pleuritic likely secondary to underlying. Fusion. Worsened by placement of dialysis access. Plan: -Continue hemodialysis as recommended by the nephrology service. Awaiting outpatient placement. - Lidoderm patch was ordered for localized pain control. No cerebellar telemetry therapy was ordered with Toradol today. Patient refuses to utilize any other medication other than IV Dilaudid for pain control. She was advised that she would not be discharged on this regimen. At this point she is not concerned about this and only wishes to receive IV Dilaudid for pain control despite extensive counseling by the team. Review of her CT [facility] shows that she has not received any oh. Medications recently.
[2017-02-05 07:42] VITALS: BP 172/100
--- NOTE | 2017-02-05 10:47 | NUR ---
PT LEFT FLOOR IN BED WITH DISTRIBUTION FOR DIALYSIS. WILL AWAIT RETURN TO FLOOR.
--- NOTE | 2017-02-05 11:11 | PN- Cardiology ---
Subjective Subjective: Stable. Anxious about pain control. Second day of dialysis today. Objective Vital Signs and I&Os Vital Signs Date Time Temp Pulse Resp B/P B/P Pulse O2 O2 Flow FiO2 Mean Ox Delivery Rate 02/05 1001 76 172/100 02/05 1000 76 172/100 02/05 0742 97.4 76 18 172/100 97 Room Air 02/04 2234 98.5 75 20 139/65 97 Room Air 02/04 2017 76 140/66 02/04 2017 76 140/66 02/04 1850 97 Room Air 02/04 1601 99.1 73 20 160/80 96 Room Air 02/04 1548 160/80 02/04 1547 160/80 02/04 1547 160/80 02/04 1546 160/80 02/04 1545 160/80 Intake & Output 02/05 1600 02/05 0800 02/05 0000 02/04 1600 02/04 0800 02/04 0000 Intake Total 120 240 Output Total 200 1700 Balance 120 240 -200 -1700 Intake, Oral 120 240 Number 1 Bowel Movements Output, 200 1700 Dialysate Output, Urine 0 Patient 172 lb 178 lb Weight Weight Standing Scale Standing Scale Measurement Method Current Medications: Current Medications Sig/Bryan Start time Last Medication Dose Route Stop Time Status Admin Acetaminophen 650 MG Q6P PRN 01/31 0730 AC 02/05 PO 0842 Albuterol Sulfate 2 PUF Q4P PRN 02/03 2200 AC 02/04 INH 0044 Albuterol Sulfate 3 ML Q4P PRN 01/31 2000 AC 02/03 INH 1626 Alprazolam 0.5 MG BID PRN 02/01 1133 AC 02/05 PO 02/08 1132 0103 Amlodipine Besylate 10 MG DAILY 01/31 1000 AC 02/04 PO 1546 Calcium 600 MG BID 01/31 1000 AC 02/05 PO 1002 Clonidine 1 PAT Q168 02/04 1000 AC 02/04 TOP 1548 Epoetin Carlos 30,000 UNIT Q 2 WEEKS 02/14 1000 CAN SC Epoetin Carlos 6,000 UNIT DAILY PRN 02/05 0730 AC IV Ferrous Sulfate 325 MG TID 02/01 1600 AC 02/05 PO 1000 Hydralazine HCl 100 MG TID 01/31 1000 AC 02/05 PO 1000 Hydromorphone HCl 1 MG ONCE ONE 02/05 0945 CAN IV 02/05 0946 Hydromorphone HCl 0.4 MG ONCE ONE 02/05 0500 DC 02/05 IV 02/05 0501 0455 Hydromorphone HCl 0.6 MG ONCE ONE 02/05 2000 DC 02/04 IV 02/04 Hydromorphone HCl 1 MG Q4 HRS NEEDED PRN 02/02 2015 AC 02/05 IV 1022 Ketorolac 30 MG ONCE ONE 02/05 0945 DC Tromethamine IV 02/05 0946 Ketorolac 15 MG Q6P PRN 02/05 0945 AC Tromethamine IV Labetalol HCl 300 MG BID 01/31 1000 AC 02/05 PO 1001 Lidocaine 1 PAT DAILY 02/03 1000 AC EXT Lorazepam 0.5 MG ONE ONE 02/04 2345 DC 02/04 PO 02/04 234 2354 Losartan Potassium 100 MG DAILY 01/31 1000 AC 02/04 PO 1547 Omeprazole 20 MG BID 02/03 1000 AC 02/05 PO 1001 Ondansetron HCl 4 MG Q6-PRN PRN 01/31 0915 AC 02/05 PO 1045 Oxycodone/ 1 TAB Q6P PRN 01/31 1215 AC 02/05 Acetaminophen PO 0341 Results Last 48 Hrs of Labs/Mics: Laboratory Tests 02/04/17 1227: Hep Bs Antibody Cancelled 02/04/17 1145: Sodium Cancelled, Potassium Cancelled, Chloride Cancelled, Carbon Dioxide Cancelled, Anion Gap Cancelled, BUN Cancelled, Creatinine Cancelled, BUN/ Creatinine Ratio Cancelled, Calcium Cancelled, Phosphorus Cancelled, Magnesium Cancelled, Albumin Cancelled 02/04/17 1145: Anion Gap 10, Estimated GFR 4 L, BUN/Creatinine Ratio 4.5 L, Calcium 7.7 L, Phosphorus 4.6 H, Magnesium 1.7, Albumin 2.4 L, CBC w Diff NO MAN DIFF REQ, RBC 2.57 L, MCV 90.0, MCH 29.6, RDW 15.4 H, MPV 8.5, Gran % 62.7, Lymphocytes % 24.3, Monocytes % 6.5, Eosinophils % 5.8 H, Basophils % 0.7, Absolute Granulocytes 4.2, Absolute Lymphocytes 1.6, Absolute Monocytes 0.4, Absolute Eosinophils 0.4, Absolute Basophils 0, PUBS MCHC 32.9 L, Hepatitis A IgM Ab NONREACTIVE, Hep Bs Antigen NONREACTIVE, Hep Bs Antibody NONREACTIVE, Hep B Core IgM Ab Conf NONREACTIVE, Hepatitis C Antibody NONREACTIVE 02/04/17 0805: Total Beta HCG NEGATIVE Assessment/Plan Assessment/Plan Assessment: 1. End-stage renal disease, on peritoneal dialysis 2. Hypertension, now under control 3. Acute diastolic heart failure 4. History of poor compliance with medications and dialysis. Plan: * Dialysis as per nephrology with fluid removal * Echocardiogram noted * Continue losartan, clonidine, labetalol, and amlodipine for blood pressure control. Monitor blood pressure with dose adjustments as indicated Continue telemetry? No
[2017-02-05 11:30] LABS: ABSOLUTE BASOPHIL COUNT 0 /CUMM (0.0-0.2); ABSOLUTE EOSINOPHIL COUNT 0.4 /CUMM (0.0-0.7); ABSOLUTE LYMPH COUNT 1.5 /CUMM (1.2-3.4); ABSOLUTE MONOCYTE COUNT 0.7 /CUMM (0.10-0.60); BASOPHIL % 0.4 % (0.0-2.0); EOSINOPHIL % 5.9 % (0-5); GRANULOCYTE % 60.7 % (42.2-75.2); HEMATOCRIT 24.9 % (37-47); MEAN CORPUSCULAR HGB 29.7 PG (27.0-31.0); MEAN CORPUSCULAR HGB CONC 32.3 G/DL (33.0-37.0); MEAN CORPUSCULAR VOLUME 91.9 FL (81.0-99.0); MEAN PLATELET VOLUME 8.3 FL (7.4-10.4); PLATELET COUNT 283 /CUMM (130-400); RBC DISTRIBUTION WIDTH 15.7 % (11.5-14.5); RED BLOOD CELL CT 2.71 /CUMM (4.20-5.40); WHITE BLOOD CELL COUNT 6.7 /CUMM (4.8-10.8)
--- NOTE | 2017-02-05 11:59 | PN- Nephrology ---
Assessment/Plan Assessment: 1. ESRD 2. Volume overload with CHF; was not adequately ultrafiltering on PD despite aggresive regimen 3. Hypertension 4. Anemia 5. History of poor compliance with medications and dialysis regimen Suggestion: 1. Hemodialysis #2 today in progress with 3 L ultrafiltration goal over 3.5 hours 2. Will hemodialyze again tomorrow and then Thursday 02/08 3. Willl arrange for an outpatient hemodialysis slot for next week; she has decided to transfer her care to [facility] because it is closer to home. 4. She will need to have her PD catheter removed and creation of a permanent vascular access after she has been discharged; this will also be done in one apparently Subjective Subjective: Patient feels about the same, perhaps slightly better. 3 L of fluid were removed with dialysis yesterday and the plan is to do the same today. She was seen with dialysis which is currently in progress. Arrangements are being made for transfer of her outpatient care to [facility] in [place] (Dr. Javier). Her next dialysis treatments here will be tomorrow and then again on Wednesday. Objective Vital Signs and I&Os Vital Signs Date Time Temp Pulse Resp B/P B/P Pulse O2 O2 Flow FiO2 Mean Ox Delivery Rate 02/05 1001 76 172/100 02/05 1000 76 172/100 02/05 0742 97.4 76 18 172/100 97 Room Air 02/04 2234 98.5 75 20 139/65 97 Room Air 02/04 2017 76 140/66 02/04 2017 76 140/66 02/04 1850 97 Room Air 02/04 1601 99.1 73 20 160/80 96 Room Air 02/04 1548 160/80 02/04 1547 160/80 02/04 1547 160/80 02/04 1546 160/80 02/04 1545 160/80 Intake & Output 02/05 1600 02/05 0400 02/04 1600 02/04 0400 02/03 1600 02/03 0400 Intake Total 120 240 730 260 Output Total 200 1700 2100 700 Balance 120 240 -200 -1700 -1370 -440 Intake, IV 10 20 Intake, Oral 120 240 720 240 Number 1 Bowel Movements Output, 200 1700 2100 700 Dialysate Output, Urine 0 Patient 172 lb 178 lb 178 lb Weight Weight Standing Scale Standing Scale Measurement Method Physical Exam: General: Well-developed, obese white female still complaining of some difficulty breathing but in no acute distress Skin: No rash or jaundice HEENT: Facial edema, conjunctivae pale, sclerae anicteric, mucous membranes moist Neck: Without masses or thyromegaly, no supraclavicular or cervical adenopathy; there is a left IJ tunneled dialysis catheter in place Chest: Rales on right, poor air entry on left with diminished breath sounds at both bases Heart: Regular rate and rhythm without S3 or rub Abdomen: Soft and nontender without palpable masses or organomegaly Extremities: + edema, no cyanosis Neuro: No focal findings, no asterixis or myoclonus Results Pertinent Lab Results: Laboratory Tests 02/05 02/04 02/04 1100 1227 1145 Chemistry Sodium (137 - 145 mmol/L) 135 L Cancelled Potassium (3.5 - 5.1 mmol/L) 4.8 Cancelled Chloride (98 - 107 mmol/L) 98 Cancelled Carbon Dioxide (22 - 30 mmol/L) 28 Cancelled Anion Gap (5 - 16) 8 Cancelled BUN (7 - 17 mg/dL) 23 H Cancelled Creatinine (0.5 - 1.0 mg/dL) 6.3 *H Cancelled Estimated GFR (>60 ml/min) Pending BUN/Creatinine Ratio (7 - 25 %) 3.7 L Cancelled Calcium (8.4 - 10.2 mg/dL) 8.2 L Cancelled Phosphorus Cancelled Magnesium Cancelled Albumin Cancelled Hematology CBC w Diff NO MAN DIFF REQ WBC (4.8 - 10.8 /CUMM) 6.7 RBC (4.20 - 5.40 /CUMM) 2.71 L Hgb (12.0 - 16.0 G/DL) 8.1 L Hct (37 - 47 %) 24.9 L MCV (81.0 - 99.0 FL) 91.9 MCH (27.0 - 31.0 PG) 29.7 RDW (11.5 - 14.5 %) 15.7 H Plt Count (130 - 400 /CUMM) 283 MPV (7.4 - 10.4 FL) 8.3 Gran % (42.2 - 75.2 %) 60.7 Lymphocytes % (20.5 - 51.1 %) 22.8 Monocytes % (1.7 - 9.3 %) 10.2 H Eosinophils % (0 - 5 %) 5.9 H Basophils % (0.0 - 2.0 %) 0.4 Absolute Granulocytes (1.4 - 6.5 /CUMM) 4.0 Absolute Lymphocytes (1.2 - 3.4 /CUMM) 1.5 Absolute Monocytes (0.10 - 0.60 /CUMM) 0.7 H Absolute Eosinophils (0.0 - 0.7 /CUMM) 0.4 Absolute Basophils (0.0 - 0.2 /CUMM) 0 PUBS MCHC (33.0 - 37.0 G/DL) 32.3 L Serology Hep Bs Antibody Cancelled 02/04 02/04 02/03 1145 0805 0645 Chemistry Sodium (137 - 145 mmol/L) 128 L 130 L Potassium (3.5 - 5.1 mmol/L) 4.6 4.4 Chloride (98 - 107 mmol/L) 91 L 91 L Carbon Dioxide (22 - 30 mmol/L) 28 27 Anion Gap (5 - 16) 10 13 BUN (7 - 17 mg/dL) 49 H 50 H Creatinine (0.5 - 1.0 mg/dL) 10.8 *H 11.2 *H Estimated GFR (>60 ml/min) 4 L 4 L BUN/Creatinine Ratio (7 - 25 %) 4.5 L 4.5 L Calcium (8.4 - 10.2 mg/dL) 7.7 L Phosphorus (2.5 - 4.5 mg/dL) 4.6 H Magnesium (1.6 - 2.3 mg/dL) 1.7 Albumin (3.5 - 5.0 g/dL) 2.4 L Total Beta HCG (NEGATIVE) NEGATIVE Hematology CBC w Diff NO MAN DIFF REQ WBC (4.8 - 10.8 /CUMM) 6.7 RBC (4.20 - 5.40 /CUMM) 2.57 L Hgb (12.0 - 16.0 G/DL) 7.6 L Hct (37 - 47 %) 23.1 L MCV (81.0 - 99.0 FL) 90.0 MCH (27.0 - 31.0 PG) 29.6 RDW (11.5 - 14.5 %) 15.4 H Plt Count (130 - 400 /CUMM) 283 MPV (7.4 - 10.4 FL) 8.5 Gran % (42.2 - 75.2 %) 62.7 Lymphocytes % (20.5 - 51.1 %) 24.3 Monocytes % (1.7 - 9.3 %) 6.5 Eosinophils % (0 - 5 %) 5.8 H Basophils % (0.0 - 2.0 %) 0.7 Absolute Granulocytes (1.4 - 6.5 /CUMM) 4.2 Absolute Lymphocytes (1.2 - 3.4 /CUMM) 1.6 Absolute Monocytes (0.10 - 0.60 /CUMM) 0.4 Absolute Eosinophils (0.0 - 0.7 /CUMM) 0.4 Absolute Basophils (0.0 - 0.2 /CUMM) 0 PUBS MCHC (33.0 - 37.0 G/DL) 32.9 L Serology Hepatitis A IgM Ab (NONREACTIVE) NONREACTIVE Hep Bs Antigen (NONREACTIVE) NONREACTIVE Hep Bs Antibody (NONREACTIVE) NONREACTIVE Hep B Core IgM Ab Conf (NONREACTIVE) NONREACTIVE Hepatitis C Antibody (NONREACTIVE) NONREACTIVE
[2017-02-05 23:00] VITALS: BP 174/80
[2017-02-06 07:23] VITALS: BP 166/84
--- NOTE | 2017-02-06 07:51 | PN- Housestaff ---
FLAVIA COTA,THI 02/06/17 0749: Subjective Follow-up For: ESRD on hemodialysis Pleuritic chest pain Subjective: I saw the patient today morning She is lying in the bed. persistently reports going home as tomorrow is mothers day. Not concerned about pain today. Review of Systems Constitutional: Reports: see HPI. Comments: ROS negative except the above. Objective Last 24 Hrs of Vital Signs/I&O Vital Signs Date Time Temp Pulse Resp B/P B/P Pulse O2 O2 Flow FiO2 Mean Ox Delivery Rate 02/06 0723 98.9 75 18 166/84 94 Room Air 02/05 2300 98.4 78 18 174/80 97 Room Air 02/05 2201 78 174/80 02/05 2200 78 174/80 02/05 1554 74 178/80 02/05 1551 74 178/80 02/05 1551 74 178/80 02/05 1001 76 172/100 02/05 1000 76 172/100 Intake & Output 02/06 0800 02/06 0000 02/05 1600 Intake Total 240 600 Output Total 3000 Balance 240 -2400 Intake, Oral 240 600 Number 0 Bowel Movements Output, 3000 Dialysate Output, Urine 0 Patient 75.75 kg 75.296 kg Weight Physical Exam General Appearance: Alert, Oriented X3, Cooperative, Mild Distress Skin: No Rashes, left tunneled IJ in place HEENT: Atraumatic, PERRLA, EOMI Neck: Supple Cardiovascular: Normal S1, Normal S2, systolic murmur present Lungs: Clear to Auscultation, Normal Air Movement Abdomen: Normal Bowel Sounds, Soft, No Tenderness Neurological: Normal Gait, Normal Speech, Strength at 5/5 X4 Ext, Normal Tone, Sensation Intact Current Medications: Current Medications Sig/Bryan Start time Last Medication Dose Route Stop Time Status Admin Acetaminophen 650 MG .STK-MED ONE 02/05 0841 DC PO 02/05 0842 Acetaminophen 650 MG Q6P PRN 01/31 0730 AC 02/05 PO 0842 Albuterol Sulfate 2 PUF Q4P PRN 02/03 2200 AC 02/04 INH 0044 Albuterol Sulfate 3 ML Q4P PRN 01/31 2000 AC 02/03 INH 1626 Alprazolam 0.5 MG BID PRN 02/01 1133 AC 02/06 PO 02/08 1132 0106 Amlodipine Besylate 10 MG DAILY 01/31 1000 AC 02/05 PO 1551 Calcium 600 MG BID 01/31 1000 AC 02/05 PO 2200 Clonidine 1 PAT Q168 02/04 1000 AC 02/04 TOP 1548 Epoetin Carlos 6,000 UNIT DAILY PRN 02/05 0730 AC IV Ferrous Sulfate 325 MG TID 02/01 1600 AC 02/05 PO 2201 Hydralazine HCl 100 MG TID 01/31 1000 AC 02/05 PO 2200 Hydromorphone HCl 1 MG ONCE ONE 02/05 1830 DC 02/05 IV 02/05 1831 1838 Hydromorphone HCl 1 MG ONCE ONE 02/05 0945 CAN IV 02/05 0946 Hydromorphone HCl 1 MG Q4 HRS NEEDED PRN 02/02 2015 AC 02/06 IV 0734 Ketorolac 30 MG ONCE ONE 02/05 0945 DC Tromethamine IV 02/05 0946 Ketorolac 15 MG Q6P PRN 02/05 0945 AC Tromethamine IV Labetalol HCl 300 MG BID 01/31 1000 AC 02/05 PO 2201 Lidocaine 1 PAT DAILY 02/03 1000 AC EXT Losartan Potassium 100 MG DAILY 01/31 1000 AC 02/05 PO 1551 Omeprazole 20 MG BID 02/03 1000 AC 02/05 PO 2201 Ondansetron HCl 4 MG .STK-MED ONE 02/05 2209 DC PO 02/05 2210 Ondansetron HCl 4 MG .STK-MED ONE 02/05 1046 DC PO 02/05 1047 Ondansetron HCl 4 MG .STK-MED ONE 02/05 1041 DC IM 02/05 1042 Ondansetron HCl 4 MG Q6-PRN PRN 01/31 0915 AC 02/05 PO 2209 Oxycodone/ 1 TAB Q6P PRN 01/31 1215 AC 02/05 Acetaminophen PO 1950 Patient Medication 1 ED .STK-MED ONE 02/05 1352 DC Teaching ED 02/05 1353 Last 24 Hrs of Lab/Ashwin Results Last 24 Hrs of Labs/Mics: Laboratory Tests 02/06/17 0800: Anion Gap 7, Estimated GFR 12 L, BUN/Creatinine Ratio 2.7 L, Glucose 70, Calcium 8.2 L, Phosphorus 3.0, Magnesium 2.1, Albumin 2.5 L, CBC w Diff NO MAN DIFF REQ, RBC 2.77 L, MCV 92.2, MCH 29.9, RDW 16.0 H, MPV 8.5, Gran % 54.0, Lymphocytes % 29.5, Monocytes % 10.2 H, Eosinophils % 5.4 H, Basophils % 0.9, Absolute Granulocytes 3.5, Absolute Lymphocytes 1.9, Absolute Monocytes 0.7 H, Absolute Eosinophils 0.4, Absolute Basophils 0.1, PUBS MCHC 32.4 L 02/06/17 0600: Sodium Cancelled, Potassium Cancelled, Chloride Cancelled, Carbon Dioxide Cancelled, Anion Gap Cancelled, BUN Cancelled, Creatinine Cancelled, BUN/ Creatinine Ratio Cancelled, Calcium Cancelled, Magnesium Cancelled Assessment/Plan Assessment: 31 y/o F with PMHx of ESRD on peritoneal dialysis, HTN and anemia who presents fluid overload after being noncomplaint with her dialysis sessions. ESRD on hemodialysis -- Overload In the setting of noncompliance with peritoneal dialysis, although current presentation is concerning for CHF in view of PND, orthopnea and longstanding HTN. ProBNP is 254,000. No signs of infection of peritoneal fluid/pneumonia. * Nephrology following. Appreciate their recs. * Cr improved to 4.4 today from 12.3 at admission. * moderate left sided pleural effusion present. * Left IJ tunneled catheter in place, undergoing series of dialysis. * Arrangements made to send her to [facility] dialysis center () next week. * Dialysis session - 3, today done. Next session on wednesday. Pleuritic pain Patient reports persistent pain in her chest which is worse with breathing, getting better with Dilaudid. Pain management is consulted as she appears pain seeking. * Currenlty on dialudid 1mg Q4hrs, percocet Q6PRN. * Added ketorolac and lidocaine patch - not willing to take. HTN BP has been elevated to 180s/110s this admission despite being on amlodipine, labetalol, losartan and hydralazine. Suspect that medication noncompliance and volume overload may be playing a major role. ECHO 07/12 - EF of 65-70% with concentric LVH, diastolic dysfunction. * Cardiology consulted. Appreciate their recs. * continue hydralazine, losartan, labetalol, amlodipine, clonidine patch. * ECHO shows similar finding with EF of 65-70%. * No pericardial effusion - but there is a moderate left pleural effusion. Anemia of multifactorial origin Hgb in the 7-8 range. Likely multifactorial, secondary to iron deficiency, ESRD and missing her last outpatient Epogen dose. * Patient started on ferrous sulfate 325 mg PO TID given iron studies with low iron. * Iron studies show Anemia of chronic disease (ESRD) with high ferritin, low iron. * Vitamin B12 >1000, folate 7.1 * Discontinued Epogen as given with dialysis now. Chronic and stable conditions Anxiety: Xanax 0.5mg as needed Esophagitis: omez 20mg BID Nausea: ondansetrone 4mg Q4-6hr as needed. Depression: Escitalopram Diet: Renal Dialysis DVT PPx: ALPs CODE: FULL OF NOTE: "" Patient wantst to leave AMA from today morning. Despite various attempts to make her understand her situation, potential risk of overload she is adament and left AMA in the evening. - advised her strongly to stay as there is no slot available till ."" Problem List: 1. Shortness of breath 2. Uncontrolled hypertension 3. CRF ON HEMODIALYSIS 4. ESRD Pain Ratin Pain Location: catheter insertion site Pain Goal: Pain 4 or less Pain Plan: DILAUDID 1MG Q4HRS, KETOROLAC, LIDOCAINE Tomorrow's Labs & Rationales: NONE OSMIN COTA,DORINDA 02/06/17 1122: Attending MD Review Statement Attending Statement Attending MD Statement: examined this patient, discuss w/resident/PA/DIRT BIKE RACER, agreed w/resident/PA/DIRT BIKE RACER, reviewed EMR data (avail), discussed with nursing
[2017-02-06 11:47] VITALS: BP 134/80
[2017-02-06 12:07] LABS: ABSOLUTE BASOPHIL COUNT 0.1 /CUMM (0.0-0.2); ABSOLUTE EOSINOPHIL COUNT 0.4 /CUMM (0.0-0.7); ABSOLUTE GRANULOCYTE CT 3.5 /CUMM (1.4-6.5); ABSOLUTE LYMPH COUNT 1.9 /CUMM (1.2-3.4); ABSOLUTE MONOCYTE COUNT 0.7 /CUMM (0.10-0.60); BASOPHIL % 0.9 % (0.0-2.0); EOSINOPHIL % 5.4 % (0-5); HEMATOCRIT 25.5 % (37-47); MEAN CORPUSCULAR HGB 29.9 PG (27.0-31.0); MEAN CORPUSCULAR HGB CONC 32.4 G/DL (33.0-37.0); MEAN CORPUSCULAR VOLUME 92.2 FL (81.0-99.0); MEAN PLATELET VOLUME 8.5 FL (7.4-10.4); PLATELET COUNT 275 /CUMM (130-400); RED BLOOD CELL CT 2.77 /CUMM (4.20-5.40); WHITE BLOOD CELL COUNT 6.4 /CUMM (4.8-10.8)
[2017-02-06 14:37] VITALS: BP 170/88
--- NOTE | 2017-02-06 15:21 | PN- Nephrology ---
Assessment/Plan Assessment: HTN - BP above goal but reasonably controlled for her. Trying to remove fluid with dialysis. Not yet euvolemic. Weight down 16lbs so far. ESRD - Membrane kinetics not allowing her to appropriately UF. Has been switched to HD. In speaking with Dr. Guardado, she has a tentative spot on as the [facility] clinic. If she leaves AMA, she cannot just show up there on . PD catheter should be removed after transfer to her new dialysis unit. Anemia - Hg 8.3. Gets Epogen with dialysis. MBD - Phos controlled. Suggestion: -Advised patient against signing out AMA -Next dialysis planned for Wednesday -Cont Epogen - would check ferritin and iron stores -PD catheter to be removed once transfers care to new HD center -Cont on current anti-hypertensives - to remove more fluid with HD Please call [phone] with ?'s Subjective Subjective: Pt had dialysis earlier today Wants to go home for Mother's day tomorrow Objective Vital Signs and I&Os Vital Signs Date Time Temp Pulse Resp B/P B/P Pulse O2 O2 Flow FiO2 Mean Ox Delivery Rate 02/06 1437 98.0 67 18 170/88 97 Room Air 02/06 1154 70 134/80 02/06 1150 70 134/80 02/06 1148 70 134/80 02/06 1147 70 134/80 02/06 1147 99.1 70 20 134/80 96 Room Air 02/06 0723 98.9 75 18 166/84 94 Room Air 02/05 2300 98.4 78 18 174/80 97 Room Air 02/05 2201 78 174/80 02/05 2200 78 174/80 02/05 1554 74 178/80 02/05 1551 74 178/80 02/05 1551 74 178/80 Intake & Output 02/06 1600 02/06 0400 02/05 1600 02/05 0400 02/04 1600 02/04 0400 Intake Total 240 720 240 Output Total 0 3000 200 1700 Balance 0 240 -2280 240 -200 -1700 Intake, Oral 240 720 240 Number 0 0 1 Bowel Movements Output, 3000 200 1700 Dialysate Output, Urine 0 0 0 Patient 160 lb 166 lb 178 lb Weight Weight Standing Scale Standing Scale Measurement Method Physical Exam: Gen - OK appearing HEENT - supple CV - RRR Chest - clear Abd - soft, nontender Upper ext - + mostly nonpitting edema Lower ext - + mostly nonpitting edema Skin - no rash Neuro - AOX3, grossly nonfocal Access - ASHLEY cath and PD cath Current Medications: Current Medications Sig/Bryan Start time Last Medication Dose Route Stop Time Status Admin Acetaminophen 650 MG Q6P PRN 01/31 0730 AC 02/05 PO 0842 Albuterol Sulfate 2 PUF Q4P PRN 02/03 2200 AC 02/04 INH 0044 Albuterol Sulfate 3 ML Q4P PRN 01/31 2000 AC 02/03 INH 1626 Alprazolam 0.5 MG BID PRN 02/01 1133 AC 02/06 PO 02/08 1132 0106 Amlodipine Besylate 10 MG DAILY 01/31 1000 AC 02/06 PO 1147 Calcium 600 MG BID 01/31 1000 AC 02/06 PO 1154 Clonidine 1 PAT Q168 02/04 1000 AC 02/04 TOP 1548 Epoetin Carlos 6,000 UNIT DAILY PRN 02/05 0730 AC IV Ferrous Sulfate 325 MG TID 02/01 1600 AC 02/06 PO 1141 Hydralazine HCl 100 MG TID 01/31 1000 AC 02/06 PO 1154 Hydromorphone HCl 1 MG ONCE ONE 02/05 1830 DC 02/05 IV 02/05 1831 1838 Hydromorphone HCl 1 MG Q4 HRS NEEDED PRN 02/02 2015 AC 02/06 IV 0734 Ketorolac 15 MG Q6P PRN 02/05 0945 AC Tromethamine IV Labetalol HCl 300 MG BID 01/31 1000 AC 02/06 PO 1150 Lidocaine 1 PAT DAILY 02/03 1000 AC EXT Losartan Potassium 100 MG DAILY 01/31 1000 AC 02/06 PO 1148 Omeprazole 20 MG BID 02/03 1000 AC 02/06 PO 1141 Ondansetron HCl 4 MG .STK-MED ONE 02/05 2209 DC PO 02/05 2210 Ondansetron HCl 4 MG Q6-PRN PRN 01/31 0915 AC 02/05 PO 2209 Oxycodone/ 1 TAB Q6P PRN 01/31 1215 AC 02/05 Acetaminophen PO 1950 Results Pertinent Lab Results: Laboratory Tests 02/06 02/06 0800 0600 Chemistry Sodium (137 - 145 mmol/L) 136 L Cancelled Potassium (3.5 - 5.1 mmol/L) 4.7 Cancelled Chloride (98 - 107 mmol/L) 101 Cancelled Carbon Dioxide (22 - 30 mmol/L) 29 Cancelled Anion Gap (5 - 16) 7 Cancelled BUN (7 - 17 mg/dL) 12 Cancelled Creatinine (0.5 - 1.0 mg/dL) 4.4 H Cancelled Estimated GFR (>60 ml/min) 12 L BUN/Creatinine Ratio (7 - 25 %) 2.7 L Cancelled Glucose (65 - 99 mg/dL) 70 Calcium (8.4 - 10.2 mg/dL) 8.2 L Cancelled Phosphorus (2.5 - 4.5 mg/dL) 3.0 Magnesium (1.6 - 2.3 mg/dL) 2.1 Cancelled Albumin (3.5 - 5.0 g/dL) 2.5 L Hematology CBC w Diff NO MAN DIFF REQ WBC (4.8 - 10.8 /CUMM) 6.4 RBC (4.20 - 5.40 /CUMM) 2.77 L Hgb (12.0 - 16.0 G/DL) 8.3 L Hct (37 - 47 %) 25.5 L MCV (81.0 - 99.0 FL) 92.2 MCH (27.0 - 31.0 PG) 29.9 RDW (11.5 - 14.5 %) 16.0 H Plt Count (130 - 400 /CUMM) 275 MPV (7.4 - 10.4 FL) 8.5 Gran % (42.2 - 75.2 %) 54.0 Lymphocytes % (20.5 - 51.1 %) 29.5 Monocytes % (1.7 - 9.3 %) 10.2 H Eosinophils % (0 - 5 %) 5.4 H Basophils % (0.0 - 2.0 %) 0.9 Absolute Granulocytes (1.4 - 6.5 /CUMM) 3.5 Absolute Lymphocytes (1.2 - 3.4 /CUMM) 1.9 Absolute Monocytes (0.10 - 0.60 /CUMM) 0.7 H Absolute Eosinophils (0.0 - 0.7 /CUMM) 0.4 Absolute Basophils (0.0 - 0.2 /CUMM) 0.1 PUBS MCHC (33.0 - 37.0 G/DL) 32.4 L 02/05 02/05 02/04 1100 0600 1227 Chemistry Sodium (137 - 145 mmol/L) 135 L Cancelled Potassium (3.5 - 5.1 mmol/L) 4.8 Cancelled Chloride (98 - 107 mmol/L) 98 Cancelled Carbon Dioxide (22 - 30 mmol/L) 28 Cancelled Anion Gap (5 - 16) 8 Cancelled BUN (7 - 17 mg/dL) 23 H Cancelled Creatinine (0.5 - 1.0 mg/dL) 6.3 *H Cancelled Estimated GFR (>60 ml/min) 8 L BUN/Creatinine Ratio (7 - 25 %) 3.7 L Cancelled Calcium (8.4 - 10.2 mg/dL) 8.2 L Cancelled Hematology CBC w Diff NO MAN DIFF REQ WBC (4.8 - 10.8 /CUMM) 6.7 RBC (4.20 - 5.40 /CUMM) 2.71 L Hgb (12.0 - 16.0 G/DL) 8.1 L Hct (37 - 47 %) 24.9 L MCV (81.0 - 99.0 FL) 91.9 MCH (27.0 - 31.0 PG) 29.7 RDW (11.5 - 14.5 %) 15.7 H Plt Count (130 - 400 /CUMM) 283 MPV (7.4 - 10.4 FL) 8.3 Gran % (42.2 - 75.2 %) 60.7 Lymphocytes % (20.5 - 51.1 %) 22.8 Monocytes % (1.7 - 9.3 %) 10.2 H Eosinophils % (0 - 5 %) 5.9 H Basophils % (0.0 - 2.0 %) 0.4 Absolute Granulocytes (1.4 - 6.5 /CUMM) 4.0 Absolute Lymphocytes (1.2 - 3.4 /CUMM) 1.5 Absolute Monocytes (0.10 - 0.60 /CUMM) 0.7 H Absolute Eosinophils (0.0 - 0.7 /CUMM) 0.4 Absolute Basophils (0.0 - 0.2 /CUMM) 0 PUBS MCHC (33.0 - 37.0 G/DL) 32.3 L Serology Hep Bs Antibody Cancelled 02/04 02/04 02/04 1145 1145 0805 Chemistry Sodium (137 - 145 mmol/L) Cancelled 128 L Potassium (3.5 - 5.1 mmol/L) Cancelled 4.6 Chloride (98 - 107 mmol/L) Cancelled 91 L Carbon Dioxide (22 - 30 mmol/L) Cancelled 28 Anion Gap (5 - 16) Cancelled 10 BUN (7 - 17 mg/dL) Cancelled 49 H Creatinine (0.5 - 1.0 mg/dL) Cancelled 10.8 *H Estimated GFR (>60 ml/min) 4 L BUN/Creatinine Ratio (7 - 25 %) Cancelled 4.5 L Calcium (8.4 - 10.2 mg/dL) Cancelled 7.7 L Phosphorus (2.5 - 4.5 mg/dL) Cancelled 4.6 H Magnesium (1.6 - 2.3 mg/dL) Cancelled 1.7 Albumin (3.5 - 5.0 g/dL) Cancelled 2.4 L Total Beta HCG (NEGATIVE) NEGATIVE Hematology CBC w Diff NO MAN DIFF REQ WBC (4.8 - 10.8 /CUMM) 6.7 RBC (4.20 - 5.40 /CUMM) 2.57 L Hgb (12.0 - 16.0 G/DL) 7.6 L Hct (37 - 47 %) 23.1 L MCV (81.0 - 99.0 FL) 90.0 MCH (27.0 - 31.0 PG) 29.6 RDW (11.5 - 14.5 %) 15.4 H Plt Count (130 - 400 /CUMM) 283 MPV (7.4 - 10.4 FL) 8.5 Gran % (42.2 - 75.2 %) 62.7 Lymphocytes % (20.5 - 51.1 %) 24.3 Monocytes % (1.7 - 9.3 %) 6.5 Eosinophils % (0 - 5 %) 5.8 H Basophils % (0.0 - 2.0 %) 0.7 Absolute Granulocytes (1.4 - 6.5 /CUMM) 4.2 Absolute Lymphocytes (1.2 - 3.4 /CUMM) 1.6 Absolute Monocytes (0.10 - 0.60 /CUMM) 0.4 Absolute Eosinophils (0.0 - 0.7 /CUMM) 0.4 Absolute Basophils (0.0 - 0.2 /CUMM) 0 PUBS MCHC (33.0 - 37.0 G/DL) 32.9 L Serology Hepatitis A IgM Ab (NONREACTIVE) NONREACTIVE Hep Bs Antigen (NONREACTIVE) NONREACTIVE Hep Bs Antibody (NONREACTIVE) NONREACTIVE Hep B Core IgM Ab Conf (NONREACTIVE) NONREACTIVE Hepatitis C Antibody (NONREACTIVE) NONREACTIVE Imaging/Other Studies: No new imaging
--- NOTE | 2017-02-06 15:32 | NUR ---
PT SIGNING OUT AMA DESPITE NUMEROUS EFFORTS TO HAVE PT STAY. CREPING MACHINE OPERATOR HELPER THI SPOKE TO PT WELL ADDICTION PSYCHIATRIST. PT A&O X3 AND ADAMANT ABOUT GOING HOME TODAY DEPSITE RISKS DISCUSSED. PT REPORTS SHE HAS A DAUGHTER AT HOME SHE WANTS TO SPEND TIME WITH MOTHER'S DAY APPROACHING. RN PSYCHOLOGY INSTRUCTOR SEGUN NOTIFIED. DR. MONZON SIGNED AMA PAPERWORK WITH PT. IV SITE DISCONTINUED. WILL CONT TO MONITOR.
--- NOTE | 2017-02-06 18:55 | Event Note ---
Event Note Event Note: Patient signed out AMA this afternoon because she wants to spend mother's day at home with her family. The on-call team, including the on-call sales incentive analyst Dr. Presley spoke to the patient at length at various intervals during the day about the serious risks involved if she were to leave AMA because she currently requires regular dialysis which she has been getting here in the hospital (next one was due on wednesday), and the fact that since she is not yet set up for outpatient dialysis it could delay her getting dialysis once she leaves the hospital and could be life threatening but she vehemently refused to remain in the hospital and expressed that she fully understands and is willing to bear the risks. She plans to continue dialysis as outpatient but refused to elaborate. AMA paperwork was signed and placed in her chart. Dr. Aimee acuna.
--- NOTE | 2017-02-06 20:21 | Discharge Summary ---
Visit Information Visit Dates Admission Date: 01/31/17 Discharge Date: 02/06/17 Hospital Course Course Attending Physician: CHITRA CARLSON M.D Primary Care Physician: CLARA ANGEL MD Consulting Request: 1 Consulting Specialty: Cardiology Consulting Physician: Reason for Consult: intractable chest pain Consulting Request: 2 Consulting Specialty: Nephrology Consulting Physician: Reason for Consult: ESRD on dialysis Hospital Course: 31 y/o F with PMHx of ESRD on peritoneal dialysis, HTN and anemia who presents fluid overload after being noncomplaint with her dialysis sessions. ESRD requiring dialysis from overload In the setting of noncompliance with peritoneal dialysis, although current presentation is concerning for CHF in view of PND, orthopnea and longstanding HTN. ProBNP is 254,000. Initially thought of infection received a single dose of vanco and ceftaz, but as her cultures remain negative & has been afebrile - stopped them. Presented with a creatinine of 12.3, despite repeated peritoneal dialysis there is no significant change in weight. So we found that her catheter is not working, she underwent IR guided placement of Left internal jugular hemodialysis catheter on 02/04/17. Underwent a series of hemodialysis from 02/04/17 to 02/06/17 with significant improvement in weight 81 to 72kg and Cr 12.3 to 4.4. Arrangements made to send her to [facility] dialysis center ( ) next week thrusday. On 02/06/17 she persistently requested to go home, despite various attempts being made to make her aware of her current condition and potential risk of overload she remianed adament and left AMA in the evening around 3:32pm. Reason being want to celebrate mothers day with her daughter. She was discharged with GLENROY catheter in place. Pleuritic pain Patient reports persistent pain in her chest which is worse with breathing, getting better with Dilaudid. 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 ECHO shows left sided moderate pelural effusion secondary to fluid overload which could be the cause. She took Dilaudid 1mg Q4hrs. Even after catheter placement, she took multiple times Dilaudid additionally. Please follow up regarding pleural effusion. HTN BP has been elevated to 180s/110s this admission despite being on amlodipine, labetalol, losartan and hydralazine. Suspect that medication noncompliance and volume overload may be playing a major role. ECHO 07/12 - EF of 65-70% with concentric LVH, diastolic dysfunction. We continued her home medications hydralazine, losartan, labetalol, amlodipine, clonidine patch. ECHO shows similar finding with EF of 65-70%. No pericardial effusion - but there is a moderate left pleural effusion. Anemia of multifactorial origin Hgb in the 7-8 range. Likely multifactorial, secondary to iron deficiency, ESRD and missing her last outpatient Epogen dose. Patient was started on ferrous sulfate 325 mg PO TID given iron studies with low iron. Iron studies show Anemia of chronic disease (ESRD) with high ferritin, low iron. Vitamin B12 >1000, folate 7.1. Discontinued Epogen in hospital as given with dialysis now. Chronic and stable conditions Anxiety: Xanax 0.5mg as needed Esophagitis: omez 20mg BID Nausea: ondansetrone 4mg Q4-6hr as needed. Depression: Escitalopram Diet: Renal Dialysis DVT PPx: ALPs CODE: FULL OF NOTE: "" Patient wantst to leave AMA from today morning. Despite various attempts to make her understand her situation, potential risk of overload she is adament and left AMA in the evening. - advised her strongly to stay as there is no slot available till ."" Complications: None Allergies: Coded Allergies: Iodinated Contrast Media - Oral and (Intermediate, HIVES AND SWELLING 12/21/16) morphine (Intermediate, HIVES 12/21/16) Penicillins (RASH 12/21/16) hydroxyzine (PER PT UNKNOWN 12/21/16) lisinopril (ANGIODEMA 12/21/16) LEIDA Inhibitors (ANGIODEMA 12/21/16) Significant Procedures: Glenroy catheter placement on feb 04 2017 1. Real-time ultrasound-guided access into the left internal jugular vein after documentation of selected vessel patency, and permanent imaging storing in the patient records. 2. Placement of a tunneled 15.5 Fr 23 cm tip to cuff length dual lumen central venous catheter. PHYSICIANS: Dr. Luis Manuel Brower (attending). The attending radiologist was present during the procedure and related imaging, and reviewed the report. MONITORING: The procedure was performed with conscious sedation and analgesia under my direct supervision. Continuous blood pressure, pulse oximetry as well as heartrate monitoring was performed by an independent registered nurse. Physician intraservice sedation time was 25 minutes. MEDICATIONS: 1. 3.5 mg of Versed and 1.75 micrograms of fentanyl were administered. 2. 20 mL of 1% lidocaine SQ. 3. 10 mL of 1% lidocaine with epinephrine SQ. COMPLICATIONS: None. ESTIMATED BLOOD LOSS: <5 mL SPECIMENS: None. CONTRAST: None. FLUOROSCOPY TIME: 0.7 minutes FINDINGS: 1. Lower right internal jugular vein is occluded. Patent left internal jugular vein. 2. Tip of catheter in the right atrium. 3. Catheter flushes and aspirates very well with a 10 mL syringe. 4. No pneumothorax. IMPRESSION: Successful and uncomplicated placement of a left internal jugular hemodialysis catheter. PLAN: 1. The patient was stable after the procedure and was transferred to the interventional recovery area. The patient will be transferred back to her medical room. 2. The catheter may be used immediately. 3. The suture securing the catheter should remain in place for 4 weeks or greater. Pertinent Lab Results: above Disposition Summary Disposition Principal Diagnosis: fluid overload secondary to ESRD Additional Diagnosis: moderate left pleural effusion anemia of chronic disease HTN anxiety Depression Discharge Disposition: left against medical adv Discharge Instructions General Discharge Information Code Status: Full Code Patient's Diet: Renal dialysis diet Patient's Activity: acitivity as tolerated Follow-Up Instructions/Appts: Please follow up with your PCP in a week Please follow up with your medical collector in a week Please follow up with [facility] next week Medications at Discharge Discharge Medications: Continue taking these medications: Amlodipine Besylate (Amlodipine Besylate) 10 MG TABLET 1 Tablet ORAL DAILY Comments: Last Taken: 12/24/16 Time: 1000 AM Epoetin Carlos (Epogen) 10,000 UNIT/ML VIAL 10,000 Unit Inject into fatty tissue EVERY 2 WEEKS Comments: NOT GIVEN IN HOSPITAL Losartan (Cozaar) 100 MG TABLET 1 Tablet ORAL DAILY Comments: Last Taken: 12/24/16 Time: 1000 AM Calcium (Elemental-Fr Calcarb) (Calcium Carbonate) 500 MG/5ML ORAL.SUSP 20 Milliliters ORAL TWICE DAILY Alprazolam (Xanax) 0.5 MG TABLET 1 Tablet ORAL DAILY NEEDED as needed for ANXIETY Comments: Last Taken: 12/23/16 Time: 1040 PM Hydralazine HCl (Hydralazine HCl) 100 MG TABLET 1 Tablet ORAL THREE TIMES DAILY Comments: Last Taken: 12/24/16 Time: 1000 AM Ondansetron HCl (Zofran) 4 MG TABLET 1 Tablet ORAL Every 6-8 Hours as Needed as needed for NAUSEA Comments: NOT GIVEN IN THE HOSPITAL Clonidine (Clonidine) 0.2 MG/24 HOUR PATCH.TDWK 1 Patch On the skin EVERY WEDNESDAY Qty = 4 Comments: Last Taken: 12/22/16 Time: 430 PM Labetalol HCl (Labetalol HCl) 100 MG TABLET 3 Tablet ORAL TWICE DAILY Qty = 30 Comments: Last Taken: 12/24/16 Time: 1000 AM Omeprazole (Omeprazole) 20 MG CAPSULE.DR 1 Tablet ORAL TWICE DAILY Qty = 14 Comments: Last Taken: 12/24/16 Time: 10 AM Escitalopram Oxalate (Escitalopram Oxalate) (Unknown Strength) TABLET Unknown Dose Qty = 90 Copies To: SUSAN COTA,ABRAHAM Corona; STANLEY COTA,JAMIN CANTOR MD,DANDRE Attending MD Review Statement Documenting Attending: CHITRA CARLSON M.D Other Findings: I have reviewed the discharge summary
== END 2017-02-06 16:21 | disposition left against medical advice (07) | DRG 194 ==
LOC: ERH 23:02 → 1NO 01-31 05:35 → 2NB 01-31 05:35 → ERHI 01-31 05:35 → ENRESERV 01-31 06:52 → 1NO 01-31 16:52 → 2NB 02-01 13:24
PROVIDERS: Emergency Medicine; Internal Medicine Nephrology; Student in an Organized Health Care Education/Training Program; ADMIT Internal Medicine
PROC: 02H633Z Insertion of Infusion Device into Right Atrium, Percutaneous Approach (ICD-10-PCS; principal; 2017-02-04)
PROC: 5A1D60Z (ICD-10-PCS; 2017-02-04)
DX: I13.2 Hypertensive heart and chronic kidney disease with heart failure and with stage 5 chronic kidney disease, or end stage renal disease (principal); N18.6 End stage renal disease; N25.81 Secondary hyperparathyroidism of renal origin; E87.1 Hypo-osmolality and hyponatremia; I50.31 Acute diastolic (congestive) heart failure; E78.5 Hyperlipidemia, unspecified; J45.909 Unspecified asthma, uncomplicated; F17.210 Nicotine dependence, cigarettes, uncomplicated; D63.1 Anemia in chronic kidney disease; D50.9 Iron deficiency anemia, unspecified; Z99.2 Dependence on renal dialysis; F41.9 Anxiety disorder, unspecified; L40.9 Psoriasis, unspecified; F32.9 Major depressive disorder, single episode, unspecified; K20.9 Esophagitis, unspecified; Z86.73 Personal history of transient ischemic attack (TIA), and cerebral infarction without residual deficits
CPT/HCPCS: 04007; 1NP; 2NBP; 87075; 77001; 82436; 87040; 87070; 93005; 93010; 93306; 93970; 96374; 96375; 96376; 99291; C1752; C1769; J0360; J0713; J0885; J0885-EC; J1170; J1644; J1885; J2405; J3101; J3370; J3490; J7040

== ENCOUNTER 2017-03-03 19:17 | Inpatient (IN) | payer OTHER ==
[~2017-03-03] VITALS: Ht 154.9 cm; Wt 72.6 kg
--- NOTE | 2017-03-03 19:28 | NUR ---
MANUAL BP 220/120. PATIENT REPORTS, "TOOK BP MEDS TODAY AND AGAIN AT 4:30PM BUT STARTED THROWING UP."
--- NOTE | 2017-03-03 19:28 | NUR ---
TRIAGE: PATIENT TO ER FROM HOME, TEMP 102.6 IN TRIAGE, DENIES RECENT TYLENOL/MOTRIN. +NAUSEA, -V/D. +HEADACHE. +SOB, DENIES COUGHING, LUNGS DIMINISHED THROUGHOUT, NO WHEEZING NOTED. ONSET SX APPROX 2PM. PATIENT SKIN MOIST AND HOT TO TOUCH. NEUROS INTACT, SPEECH SLOW THOUGH CLEAR.
--- NOTE | 2017-03-03 19:39 | NUR ---
EKG COMPLETED BY THIS RN, SHOWN TO MD YI. ATTMEPT TO MEDICATE PATIENT W/ TYLENOL IN TRIAGE (PATIENT REPORTS CANNOT TAKE MOTRIN), PATIENT REPORTS "TOO NAUSEOUS TO TAKE THE TYLENOL."
[2017-03-03 20:20] LABS: HEMATOCRIT 28.8 % (37-47); MEAN CORPUSCULAR HGB 30.3 PG (27.0-31.0); MEAN CORPUSCULAR HGB CONC 32.9 G/DL (33.0-37.0); MEAN CORPUSCULAR VOLUME 92.1 FL (81.0-99.0); MEAN PLATELET VOLUME 8.4 FL (7.4-10.4); PLATELET COUNT 300 /CUMM (130-400); RBC DISTRIBUTION WIDTH 17.1 % (11.5-14.5); RED BLOOD CELL CT 3.12 /CUMM (4.20-5.40)
--- NOTE | 2017-03-03 20:21 | NUR ---
ANGELITA BUCIO EVALUATED PT
--- NOTE | 2017-03-03 20:23 | NUR ---
PT TO ROOM 1, ASSISTED TO STRETCHER AND CHARGE ESTABLISHED IV PT REFUSED PO MEDS IN TRIAGE AND PA AWARE
--- NOTE | 2017-03-03 20:24 | ED GENERAL ADULT ---
History of Present Illness General Chief Complaint: General Adult Stated Complaint: PER PT "I THINK I HAVE A BRAIN BLEED" Source: patient Exam Limitations: no limitations Vital Signs & Intake/Output Vital Signs & Intake/Output Vital Signs Date Time Temp Pulse Resp B/P B/P Pulse O2 O2 Flow FiO2 Mean Ox Delivery Rate 03/04 138 97.1 74 22 130/70 03/04 0138 97 Nasal 2.0L Cannula 03/04 0051 97.0 73 20 142/75 97 Nasal 2.0L Cannula 03/03 2253 98.8 74 18 141/74 96 Room Air 03/03 2129 102.4 03/03 2129 102.4 94 20 176/62 94 Room Air 03/03 2050 96 Room Air 03/03 1923 102.6 98 20 220/120 93 Room Air ED Intake and Output 03/04 0000 03/03 1200 Intake Total Output Total Balance Patient 150 lb Weight Weight Reported by Patient Measurement Method Allergies Coded Allergies: Iodinated Contrast- Oral and IV Dye (Iodinated Contrast Media - Oral and) ( Intermediate, HIVES AND SWELLING 12/21/16) morphine (Intermediate, HIVES 12/21/16) Penicillins (RASH 12/21/16) hydroxyzine (PER PT UNKNOWN 12/21/16) lisinopril (ANGIODEMA 12/21/16) LEIDA Inhibitors (ANGIODEMA 12/21/16) Triage Note: TRIAGE: PATIENT TO ER FROM HOME, TEMP 102.6 IN TRIAGE, DENIES RECENT TYLENOL/MOTRIN. +NAUSEA, -V/D. +HEADACHE. +SOB, DENIES COUGHING, LUNGS DIMINISHED THROUGHOUT, NO WHEEZING NOTED. ONSET SX APPROX 2PM. PATIENT SKIN MOIST AND HOT TO TOUCH. NEUROS INTACT, SPEECH SLOW THOUGH CLEAR. Triage Nurses Notes Reviewed? yes : No Patient currently breastfeeds: No HPI: 31-year-old female with a history of end-stage renal disease (no urine production) currently on hemodialysis with Glenroy catheter currently located in the right IJ (previously on peritoneal dialysis with peritoneal dialysis catheter still in place), hypertension, hyperlipidemia, mitral regurg, hyperparathyroidism, GI bleed presenting with fevers with Tmax to 102F, headache , nausea, vomiting, shortness of breath that began this morning and has gradually progressed throughout the day. Has not tried anything at home for fever or pain control. Current dialysis schedule is Wednesday//Wednesday, with last dialysis session yesterday. Reports prior infection and thrombosis of prior Glenroy catheters, has occurred Glenroy catheter in the right IJ that was placed 2 weeks ago. (RUPINEDR COLLIER,MARTY) Reconcile Medications Alprazolam (Xanax) 0.5 MG TABLET 1 TAB PO DAILY NEEDED PRN ANXIETY ( Reported) Amlodipine Besylate 10 MG TABLET 1 TAB PO DAILY BP (Reported) Apixaban (Eliquis) 5 MG TABLET 1 TAB PO BID BLOOD THINNER (Reported) Calcium (Elemental-Fr Calcarb) (Calcium Carbonate) 500 MG/5ML ORAL.SUSP 20 ML PO BID SUPPLEMENT (Reported) Clonidine 0.2 MG/24 HOUR PATCH.TDWK 1 PAT TOP QWED BP (Reported) Epoetin Carlos (Epogen) 10,000 UNIT/ML VIAL 10,000 UNIT SC Q2W ANEMIA (Reported ) Hydralazine HCl 100 MG TABLET 1 TAB PO TID HTN (Reported) Labetalol HCl 100 MG TABLET 3 TAB PO BID Hypertension Losartan (Cozaar) 100 MG TABLET 1 TAB PO DAILY HEART (Reported) Mupirocin 2 % OINT...G. 1 UDAY TOP AD CATH (Reported) apply to affected area(s) Omeprazole 20 MG CAPSULE.DR 1 TAB PO BID ESOPHAGITIS Ondansetron HCl (Zofran) 4 MG TABLET 1 TAB PO Q6-8P PRN NAUSEA (Reported) (GÉNESIS COTA,MARYSE Fajardo) Past History Travel History Traveled to [place] past 21 day No Medical History Any Pertinent Medical History? 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 Hemorrhagic stroke in September 2013 at [facility]. In February 2013, a right basal ganglia hemorrhagic CVA. In 2012, she had been transferred to [place] and ultimately to [facility]. right basal ganglia hemorrhagic CVA in January 2013. 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: NONE Other Medical Hx: Obesity Eczema Catheter associated bacteremia with MRSA in September 2014 MRSA peritonitis/Sepsis History of Non-compliance with Meds and dialysis History of MRSA: Yes History of VRE: No History of CDIFF: No Surgical History Surgical History: , umbilical hernia repair tenckhof placement Glenroy CATH PLACEMENT AND REMOVAL placement of the peritoneal dialysis catheter parathyroidectomy placement of a Tenckhoff catheter Psychosocial History Who do you live with Spouse Services at Home None What is your primary language Citizen Of [place] Tobacco Use: Refused to answer Family History Family History, If Any: FATHER FH: CAD (coronary artery disease) FH: diabetes mellitus FH: stroke grandmother FH: colon cancer Hx Contributory? No (MARTY BUCIO PA-C) Review of Systems Review of Systems Constitutional: Reports: no symptoms. EENTM: Reports: no symptoms. Respiratory: Reports: short of breath. Denies: cough, orthopnea, sputum production, wheezing. Cardiovascular: Reports: edema. Denies: chest pain, orthopena, palpitations, syncope. GI: Reports: nausea, vomiting. Denies: abdominal pain, constipation, diarrhea. Genitourinary: Reports: no symptoms (doesn't make urine). Musculoskeletal: Reports: no symptoms. Skin: Reports: no symptoms. Neurological/Psychological: Reports: no symptoms. (MARTY BUCIO PA-C) Physical Exam Physical Exam General Appearance: well developed/nourished, awake, moderate distress Head: atraumatic Ears, Nose, Throat: normal ENT inspection Neck: Glenroy catheter in place to right neck, no purulent drainage, mild erythema, significant TTP of the skin overlying the tunneled catheter. Respiratory: normal breath sounds, lungs clear Cardiovascular: regular rate/rhythm, normal peripheral pulses Gastrointestinal: normal bowel sounds, soft, non-tender, PD cather in place with no purulent drainage, erythema, or other signs of infection. Neurologic/Psych: no motor/sensory deficits, awake, alert, oriented x 3, normal gait, swatch folder II-XII nml as tested Skin: intact, normal color, diaphoresis Core Measures ACS in differential dx? No CVA/TIA Diagnosis: No Severe Sepsis Present: No Septic Shock Present: No (MARTY BUCIO PA-C) Progress Differential Diagnoses I considered the following diagnoses in my evaluation of the patient: [Sepsis versus pneumonia versus catheter associated infection versus viral syndrome] Plan of Care: Orders Procedure Date/time Status CBC WITHOUT DIFFERENTIAL 03/05 600 Active BASIC ELECTROLYTES PLUS BUN&CR 03/05 600 Active Nothing by Mouth 03/04 B Active Vital Signs 03/04 138 Active Teach/Educate 03/04 138 Active Pain Treatment and Response 03/04 138 Active Nutritional Intake, Monitor 03/04 138 Active Isolation 03/04 138 Active Intake & Output 03/04 138 Active Patient Care Conference 03/04 138 Active Activity/Ambulation 03/04 138 Active Pathway - chart 03/04 0117 Active House Staff 03/04 0117 Active VTE Mechanical Prophylaxis 03/04 UNK Active PHYSICIAN CONSULT 03/04 UNK Active Patient Data 03/03 2352 Active Saline Lock 03/03 233 Active Misc Message 03/03 2334 Active ED Holding Orders 03/03 2334 Active Admit to inpatient 03/03 2334 Active Vital Signs 03/03 2334 Active Code Status 03/03 2334 Active BLOOD CULTURE 03/03 2221 Active Add-on Test (ER Only) 03/03 2110 Active ARTERIAL BLOOD GAS (GEN) 03/03 210 Complete HUMAN BETA HCG TITRE 03/03 2011 Complete BLOOD CULTURE 03/03 2008 Active TROPONIN LEVEL 03/03 2008 Complete LACTIC ACID 03/03 2008 Complete COMPREHENSIVE METABOLIC PANEL 03/03 2008 Complete CBC WITHOUT DIFFERENTIAL 03/03 2008 Complete B-TYPE NATRIURETIC PEP (BNP) 03/03 2008 Complete EKG 03/03 1931 Active Intake & Output 03/03 1920 Active Current Medications Sig/Bryan Start time Last Medication Dose Stop Time Status Admin Amlodipine Besylate 10 MG DAILY 03/04 1000 UNVr (Norvasc) Calcium 600 MG BID 03/04 1000 UNVr (Calcium Carbonate 600 MG Tab) Hydralazine HCl 10 MG TID 03/04 1000 UNVr (Apresoline) Labetalol HCl 300 MG BID 03/04 1000 UNVr (Trandate) Losartan Potassium 100 MG DAILY 03/04 1000 UNVr (Cozaar) Omeprazole 20 MG BID 03/04 1000 UNVr (Prilosec) Hydromorphone HCl 0.5 MG Q6-PRN PRN 03/04 0500 AC (Dilaudid) Alprazolam 0.5 MG DAILY NEEDED PRN 03/04 145 UNVr (Xanax) 03/11 014 Clonidine 0.2 PAT Q168 03/04 145 UNVr (Catapres) Mupirocin 1 UDAY .[AD] 03/04 145 UNVr (Bactroban) Apixaban 5 MG BID 03/04 134 UNVr (Eliquis) Acetaminophen 650 MG Q6P PRN 03/04 115 AC (Tylenol) Acetaminophen/ 1 TAB Q6P PRN 03/04 115 AC Hydrocodone Bitart (Vicodin) Acetaminophen 650 MG ONCE ONE 03/03 2030 CAN (Tylenol) 03/03 2031 Laboratory Tests 03/03/17 2308: Lactic Acid Cancelled 03/03/175: pH 7.47 H, pCO2 34 L, pO2 78 L, HCO3 24, ABG O2 Sat (Measured) 96.0, Carboxyhemoglobin 0.3 L, O2 Concentration % 2L, O2 Delivery Method NC, Phlebotomy Draw Site RIGHT RADIAL 03/03/172010: Anion Gap 13, Estimated GFR 7 L, BUN/Creatinine Ratio 4.3 L, Glucose 92, Lactic Acid 0.7, Calcium 8.9, Total Bilirubin 0.5, AST 18, ALT 40, Alkaline Phosphatase 93, Troponin I 0.05, Byy-J-Azzvxamigny Pept 21634 H, Total Protein 6.3, Albumin 3.8, Globulin 2.5, Albumin/Globulin Ratio 1.5, Beta HCG, Quant < 2.4, CBC w Diff MAN DIFF ORDERED, RBC 3.12 L, MCV 92.1, MCH 30.3, RDW 17.1 H, MPV 8.4, Gran % 95.4 H, Lymphocytes % 3.0 L, Monocytes % 0.9 L, Eosinophils % 0.7, Basophils % 0 L, Absolute Granulocytes 14.3 H, Segmented Neutrophils 96 H, Absolute Lymphocytes 0.5 L, Lymphocytes 3 L, Absolute Monocytes 0.1 L, Absolute Eosinophils 0.1, Basophils 1, Absolute Basophils 0.0, Platelet Estimate VERIFIED BY SMEAR, Anisocytosis 1+, Ovalocytes FEW, PUBS MCHC 32.9 L, Fld Total RBCs Counted 100 03/03/172007: Urine Color Cancelled, Urine Clarity Cancelled, Urine pH Cancelled, Ur Specific Kula Cancelled, Urine Protein Cancelled, Urine Ketones Cancelled, Urine Nitrite Cancelled, Urine Bilirubin Cancelled, Urine Urobilinogen Cancelled, Ur Leukocyte Esterase Cancelled, Ur Microscopic Cancelled, Urine Hemoglobin Cancelled, Urine Glucose Cancelled Microbiology 03/03 2215 BLOOD: Blood Culture - RECD 03/03 2011 BLOOD: Blood Culture - RECD 03/03 2008 URINE ROUT: Urine Culture - CAN Cancelled: Cancelled via OE: Error CT head unremarkable. Chest x-ray shows signs of venous congestion but no signs of pulmonary edema, no signs of pneumonia. Labs remarkable for elevated white blood cell count to 15. No signs of acidosis on ABG. Cultures drawn and sent, patient empirically covered with vanc and ceftz as right Glenroy catheter is highly suspicious as source of infection. Patient remained afebrile after 1 g of IV Tylenol, gave 30 mg of IV Toradol with good resolution of fever. Will admit patient to Gen. medicine for continued IV antibiotics, hemodynamic monitoring, serial lab tests. Patient should have peritoneal dialysis catheter pulled at some point to decrease possible sources of infection. The patient should be seen by nephrology for evaluation of her Glenroy catheter as there is high concern for this being the source of infection. Requested cultures to be drawn from Glenroy catheter, however, informed by nursing staff the hospital protocol is the line can only be accessed by nephrology or code situations. (RUPINDER COLLIER,MARTY) Initial ED EKG: normal axis, rhythm (sinus), rate (94), No ST segment abnormalities, T wave inversions in V5, V6, I, and aVL (MARTY BUCIO PA-C) Departure Departure Disposition: STILL A PATIENT Condition: Stable Clinical Impression Primary Impression: Sepsis Secondary Impressions: CKD (chronic kidney disease), Pulmonary venous congestion Referrals: CLARA ANGEL MD (PCP/Family) Departure Forms: Customer Survey General Discharge Information Admission Note Spoke With: NATALIA COTA,DEEJAY Documentation of Exam: Documentation of any treatments & extenuating circumstances including Concerns Regarding Discharge (functional status, medication knowledge or non-compliance, living conditions, etc.) that warrant an admission rather than observation: [ Will admit patient to Gen. medicine for continued IV antibiotics, hemodynamic monitoring, serial lab tests. Patient should have peritoneal dialysis catheter pulled at some point to decrease possible sources of infection. The patient should be seen by nephrology for evaluation of her Glenroy catheter as there is high concern for this being the source of infection. ] (RUPINDER COLLIER,MARTY) PA/INFORMATION SECURITY ASSOCIATE Co-Sign Statement Statement: ED Attending supervision documentation- [x] I saw and evaluated the patient. I have also reviewed all the pertinent lab results and diagnostic results. I agree with the findings and the plan of care as documented in the PA's/INFORMATION SECURITY ASSOCIATE's documentation. [] I have reviewed the ED Record and agree with the PA's/INFORMATION SECURITY ASSOCIATE's documentation. [] Additions or exceptions (if any) to the PAs/INFORMATION SECURITY ASSOCIATE's note and plan are summarized below: [] (GÉNESIS COTA,MARYSE Fajardo) Critical Care Note Critical Care Note Critical Care Time: non-applicable (RUPINDER COLLIER,MARTY)
[2017-03-03 20:42] LABS: ABSOLUTE EOSINOPHIL COUNT 0.1 /CUMM (0.0-0.7); ABSOLUTE GRANULOCYTE CT 14.3 /CUMM (1.4-6.5); ABSOLUTE LYMPH COUNT 0.5 /CUMM (1.2-3.4); ABSOLUTE MONOCYTE COUNT 0.1 /CUMM (0.10-0.60); BASOPHIL % 0 % (0.0-2.0); EOSINOPHIL % 0.7 % (0-5); GRANULOCYTE % 95.4 % (42.2-75.2)
--- NOTE | 2017-03-03 20:49 | NUR ---
PT MEDICATED ORDERED
--- NOTE | 2017-03-03 20:55 | NUR ---
PT NOTED TO HAVE A PERITONEAL CATH IN WHICH SHE HAS NOT USED FOR A MONTH BECAUSE SHE NOW HAS AN ASHLEY CATH TO THE RT CHEST WALL. PT NOW ABLE TO SPEAK TO PROVIDER AND SHE IS AT BEDSIDE RE EVALUATING PT
[2017-03-03] MEDS ORDERED: ELIQUIS5 M1 PO (21:01)
[2017-03-03] MEDS ORDERED: MUPIROCIN22 GM TOP (21:02)
--- NOTE | 2017-03-03 21:29 | NUR ---
PT IS STILL FEBRILE AT 102.4
--- NOTE | 2017-03-03 21:31 | NUR ---
PT IS ALSO STILL VERY DIAPHORETIC BUT MORE AROUSABLE
--- NOTE | 2017-03-03 21:34 | NUR ---
CRITICAL TEST RESULTS [id number] TERI BORRERO 31 F TESTS AND RESULTS: CREATNIN 6.8 Results received and read back by: MARTHA NAVARRO Results received date and time: 03/03/172133 The following provider was notified of the results, and read the results back: ANGELITA BUCIO Notified date and time: 03/03/17 at 2133
--- NOTE | 2017-03-03 22:35 | NUR ---
PT MEDICATED WITH FORTAZ BY NURSE ELIZA
--- NOTE | 2017-03-03 22:51 | NUR ---
PT MEDICATED WITH VANCO ORDERED
--- NOTE | 2017-03-03 23:05 | CT SCAN REPORT ---
EXAMINATION: CT HEAD WITHOUT CONTRAST CLINICAL INFORMATION: Headache and vomiting. History of hemorrhagic stroke. COMPARISON: Noncontrast head CT 08/26/2016. TECHNIQUE: Contiguous axial imaging was performed from the skull base to vertex without intravenous administration of contrast. DLP: 620 mGy-cm FINDINGS: In comparison to the prior examination, there are no significant interval changes in the appearance of the brain. Redemonstrated is a focal region of hypoattenuation within the left paramedian occipital lobe, which may correspond to a focal region of encephalomalacia in the setting of prior ischemia. Focal regions of hypoattenuation are also visualized within the right basal ganglia, corresponding to the site of the patient's reported prior hemorrhagic stroke. There are focal areas of hypoattenuation within the periventricular white matter as well as within the deep cortical white matter which may reflect sequela of chronic microvascular ischemia. There is unchanged mild parenchymal volume loss, which is abnormal given the patient's age, with proportional prominence of the sulci and ventricles. The ventricles are stable in size, without hydrocephalus. The basilar cisterns are patent. No acute intracranial hemorrhage, mass or mass effect or abnormal extra-axial fluid collections. The density within the dural venous sinuses is within normal limits. There are no focal areas of hypoattenuation within a vascular distribution to suggest acute transcortical ischemia. No acute calvarial abnormality is identified. Soft tissues appear unremarkable. The imaged paranasal sinuses and mastoid air cells are well aerated. IMPRESSION: 1. No acute intracranial abnormality. 2. Stable chronic changes within the brain, as detailed above.
--- NOTE | 2017-03-03 23:10 | RADIOLOGY REPORT ---
EXAMINATION: XR CHEST CLINICAL INFORMATION: End-stage renal disease on hemodialysis. Shortness of breath. COMPARISON: Chest x-ray 01/31/2017. TECHNIQUE: 2 views of the chest were obtained. FINDINGS: PA and lateral views of the chest demonstrate blunting of the right costophrenic angle, indicative of a small right-sided pleural effusion. There is also minimal blunting of the left costophrenic angle, which could reflect minimal left-sided pleural fluid. There is mild prominence of the interstitium, which is entirely nonspecific but could reflect interstitial edema. Cardiac mediastinal contours are stable. There is mild to moderate central venous congestion without overt pulmonary edema. Atherosclerotic calcifications are present within the aortic knob. No pneumothoraces. There is a right jugular central venous catheter. The shorter tip of the catheter appears to terminate within the distal SVC. The longer tip of the right jugular catheter terminates within the right atrium. IMPRESSION: 1. Small right-sided pleural effusion. Probable left-sided pleural effusion. Prominence of the interstitium is nonspecific but may reflect interstitial pulmonary edema. 2. Mild central venous congestion, without overt pulmonary edema. 3. Interval placement of a right jugular central venous catheter, with the catheter tip visualized terminating within the distal SVC as well as within the proximal aorta. No pneumothoraces are identified.
--- NOTE | 2017-03-03 23:28 | NUR ---
REPORT RECEIVED. PT COMFORTABLY SLEEPING WITH REGULAR BREATHING PATTERNS. IV VANCOMYCIN INFUSING ORDERED.
--- NOTE | 2017-03-04 00:09 | NUR ---
PLACED ON HEART MONITOR. SINUS RHYTHM IN 70'S. HOUSE STAFF IN ROOM EVALUATING THE PT. VANCOMYCIN INFUSION DONE.
--- NOTE | 2017-03-04 00:39 | History & Physical ---
SHELBIE COTA,[facility] 03/04/17 0038: General Information and HPI MD Statement: I have seen and personally examined TERI WILSON and documented this H& P. The patient is a 31 year old F who presented with a patient stated chief complaint of malaise. Source of Information: patient, old records Exam Limitations: no limitations History of Present Illness: Ms. Wilson is a 31 y/o F with PMHx of ESRD on HD, resistant HTN with multiple hospitalizations for hypertensive urgency and previous ischemic and hemorrhagic strokes with residual minimal left-sided weakness and dysarthria who presents with subjective fevers, chills and fatigue. Patient states that her symptoms started at 2 PM on the day of current presentation and that she was feeling fine before then. She also endorses a severe headache stating that she felt like she was having a stroke. She reports lack of appetite and nausea with four episodes of dry heaves today. She denies cough, URI symptoms, chest pain, abdominal pain, diarrhea or sick contacts. She has chronic shortness of breath at baseline which she attributes to anxiety and feels that this is unchanged. Patient was on peritoneal dialysis up until her most recent hospitalization here at [place] approximately one month prior to current presentation (01/31-02/06), however this was not working well for her due to noncompliance issues and she was having multiple hospitalizations for volume overload. During that admission, patient was switched to hemodialysis with IR-guided placement of a left IJ hemodialysis catheter. The peritoneal dialysis catheter was left in place for the time being in case patient may need peritoneal dialysis again. Two weeks later, she developed a clot at the left IJ catheter site and was seen at [facility] where the left IJ catheter was removed with subsequent placement of a right IJ catheter. Patient reports that the right IJ catheter site has been tender since its placement but this has been improving. She does complain of a stitch next to the site which is still exquisitely tender, however. Currently she is on Ektilkq-Choubpug-Spifjuyl schedule for dialysis and her most recent session was one day prior to current presentation. Plan was to eventually switch her to a Jassek-Txjjcwvdu-Brpzla schedule. Of note, patient was hospitalized in September 2014 at [facility] for MRSA sepsis attributed to an infected port-a-cath with seeding of the peritoneal fluid. Allergies/Medications Allergies: Coded Allergies: Iodinated Contrast- Oral and IV Dye (Iodinated Contrast Media - Oral and) ( Intermediate, HIVES AND SWELLING 12/21/16) morphine (Intermediate, HIVES 12/21/16) Penicillins (RASH 12/21/16) hydroxyzine (PER PT UNKNOWN 12/21/16) lisinopril (ANGIODEMA 12/21/16) LEIDA Inhibitors (ANGIODEMA 12/21/16) Compliance With Home Meds: POOR (hx med/dialysis noncompliance) Past History Travel History Traveled to [place] past 21 day No Medical History Neurological: CVA (multiple ischemic/hemoorhagic), migraine, right basal ganglia lacunar infarct (2012), left basal ganglia lacunar infarct, 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) MRSA peritonitis drug fever attributed to vancomycin History of MRSA: Yes History of VRE: No History of CDIFF: No Surgical History Surgical History: , hernia repair-inguinal, peritoneal dialysis catheter placement, Eloisa cath placement and removal, parathyroidectomy Past Family/Social History Family History Relations & Conditions if any FATHER FH: CAD (coronary artery disease) FH: HTN (hypertension) FH: stroke grandmother FH: colon cancer SISTER ASD (atrial septal defect) MOTHER FH: diabetes mellitus FH: HTN (hypertension) No family history of: Early CAD; FH: kidney disease Psychosocial History Who Do You Live With? child, parent Services at Home: None Primary Language: Khmer Smoking Status: Smoker Current Stat Ukn (Unclear if Still Smokes) Living Will? yes Functional Ability ADLs Independent: dressing, eating, toileting, bathing. Ambulation: independent IADLs Independent: shopping, housework, finances, food prep, telephone, transportation , medication admin. Employment History Employment Disability Review of Systems Review of Systems Constitutional: Reports: chills, fever, malaise. EENTM: Reports: no symptoms. Cardiovascular: Reports: peripheral edema (chronic). Denies: chest pain. Respiratory: Reports: short of breath (chronic, unchanged from prior). Denies: cough. GI: Reports: nausea. Denies: abdominal pain, constipation, diarrhea, bloody stool. Genitourinary: Reports: see HPI (anuric). Musculoskeletal: Reports: no symptoms. Skin: Reports: no symptoms. Neurological/Psychological: Reports: anxiety, headache. Hematologic/Endocrine: Reports: no symptoms. Immunologic/Allergic: Reports: no symptoms. All Other Systems: Reviewed and Negative Exam & Diagnostic Data Last 24 Hrs of Vital Signs/I&O Vital Signs Date Time Temp Pulse Resp B/P B/P Pulse O2 O2 Flow FiO2 Mean Ox Delivery Rate 03/04 0142 97 Nasal 2.0L Cannula 03/04 138 97.1 74 22 130/70 03/04 013 97 Nasal 2.0L Cannula 03/04 0051 97.0 73 20 142/75 97 Nasal 2.0L Cannula 03/03 2253 98.8 74 18 141/74 96 Room Air 03/03 2129 102.4 03/03 2129 102.4 94 20 176/62 94 Room Air 03/030 96 Room Air 03/03 1923 102.6 98 20 220/120 93 Room Air Intake & Output 03/04 0800 03/04 0000 03/03 1600 Intake Total Output Total Balance Patient 73.028 kg 68.039 kg Weight Weight Bed scale Reported by Patient Measurement Method Physical Exam General Appearance Oriented X3, No Acute Distress, Drowsy HEENT Atraumatic, Dry Mucous Membranes Neck Supple Cardiovascular Regular Rate, Normal S1, Normal S2 Lungs Clear to Auscultation Abdomen Soft, No Tenderness, Positive Bowel Sounds, Peritoneal Dialysis Catheter in Place with no Erythema, Tenderness or Swelling at the Site Extremities No Clubbing, No Cyanosis, No Edema, RIJ in place with Surrounding Erythema and Tenderness, Site of Old Stitch Medial to RIJ with Erythema and Tenderness Last 24 Hrs of Labs/Ashwin: Laboratory Tests 03/03/178: Lactic Acid Cancelled 03/03/175: pH 7.47 H, pCO2 34 L, pO2 78 L, HCO3 24, ABG O2 Sat (Measured) 96.0, Carboxyhemoglobin 0.3 L, O2 Concentration % 2L, O2 Delivery Method NC, Phlebotomy Draw Site RIGHT RADIAL 03/03/172010: Anion Gap 13, Estimated GFR 7 L, BUN/Creatinine Ratio 4.3 L, Glucose 92, Lactic Acid 0.7, Calcium 8.9, Total Bilirubin 0.5, AST 18, ALT 40, Alkaline Phosphatase 93, Troponin I 0.05, Aza-C-Kknowtghtbt Pept 98077 H, Total Protein 6.3, Albumin 3.8, Globulin 2.5, Albumin/Globulin Ratio 1.5, Beta HCG, Quant < 2.4, CBC w Diff MAN DIFF ORDERED, RBC 3.12 L, MCV 92.1, MCH 30.3, RDW 17.1 H, MPV 8.4, Gran % 95.4 H, Lymphocytes % 3.0 L, Monocytes % 0.9 L, Eosinophils % 0.7, Basophils % 0 L, Absolute Granulocytes 14.3 H, Segmented Neutrophils 96 H, Absolute Lymphocytes 0.5 L, Lymphocytes 3 L, Absolute Monocytes 0.1 L, Absolute Eosinophils 0.1, Basophils 1, Absolute Basophils 0.0, Platelet Estimate VERIFIED BY SMEAR, Anisocytosis 1+, Ovalocytes FEW, PUBS MCHC 32.9 L, Fld Total RBCs Counted 100 03/03/17 2008: Urine Color Cancelled, Urine Clarity Cancelled, Urine pH Cancelled, Ur Specific [place] Cancelled, Urine Protein Cancelled, Urine Ketones Cancelled, Urine Nitrite Cancelled, Urine Bilirubin Cancelled, Urine Urobilinogen Cancelled, Ur Leukocyte Esterase Cancelled, Ur Microscopic Cancelled, Urine Hemoglobin Cancelled, Urine Glucose Cancelled Microbiology 03/03 2215 BLOOD: Blood Culture - RECD 03/03 2011 BLOOD: Blood Culture - RECD 03/03 2008 URINE ROUT: Urine Culture - CAN Cancelled: Cancelled via OE: Error Diagnostic Data EKG Results Sinus rhythm HR 94 LVH QTc 411 CXR Results 1. Small right-sided pleural effusion. Probable left sided pleural effusion. Prominence of the interstitium is nonspecific but may reflect interstitial pulmonary edema. 2. Mild central venous congestion, without overt pulmonary edema. 3. Interval placement of a right jugular central venous catheter, with the catheter tip visualized terminating within the distal SVC as well as within the proximal aorta. No pneumothoraces are identified. Other Results CT HEAD W/O CONTRAST: 1. No acute intracranial abnormality. 2. Stable chronic changes within the brain, as detailed above. Assessment/Plan Assessment: Ms. Wilson is a 31 y/o F with PMHx of ESRD on HD, resistant HTN with multiple hospitalizations for hypertensive urgency and previous ischemic and hemorrhagic strokes with residual minimal left-sided weakness and dysarthria who presents with fever and chills. #Sepsis: Patient met SIRS criteria for sepsis on admission with fever to 102.6 and leukocytosis with WBC count of 15.0. Etiology is unclear although most likely source is the RIJ catheter with erythema and tenderness at the site. Pneumonia is unlikely in the absence of respiratory symptoms and consolidation on CXR. Patient is anuric at baseline thus urinary source can be ruled out. S/p 1 dose of vancomycin and ceftazidime in the ED. History of MRSA sepsis attributed to an infected port-a-cath in September 2014 treated at [facility]. * Admit to General Medicine. * ID consult to be placed. Appreciate their recs. * Check BCx and sputum Cx. * Continue vancomycin and ceftazidime pending cultures and ID recs. * Consider culturing the tip of the Eloisa cath at RIJ site. #ESRD on HD: Switched from peritoneal dialysis to HD one month ago due to noncompliance issues. * Nephrology consulted. Appreciate their recs. * Continue HD per nephro. #Resistant HTN: Multiple hospitalizations for hypertensive urgency felt to be 2/ 2 medication and dialysis noncompliance. 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 Mariee. Xlpuw-ge-lufgzhvdz meds include amlodipine 10 mg PO daily, clonidine patch, hydralazine 100 mg PO TID, labetalol 300 mg PO BID and losartan 100 mg PO daily. BP was elevated to 220/1220 on initial presentation but later came down to 120/ 70. Rapid drop in BP is concerning for impending septic shock. CT Head with no acute intracranial findings. Most recent ECHO in January 2017 with normal LVEF estimated at 65-70% and severe concentric hypertrophy with diastolic dysfunction. * Consult cardiology in the AM. Appreciate their recs. * Hold all ubjad-vd-bosflgyow antihypertensive medications in the setting of sepsis and due to concern for stroke given history of stroke in the setting of rapid drop in BP. Resume anti-hypertensive medications as tolerated. #Left IJ thrombosis: Developed two weeks ago at left IJ hemodialysis catheter site, followed by subsequent removal of left IJ catheter and placement of right IJ catheter. * Continue eifhc-us-oqpxmkbuh Eliquis 5 mg PO BID. #Duodenitis/gastritis: * Continue ybauw-rw-jvlbxzjda omeprazole 20 mg PO BID. #Anxiety: * Continue lrjsu-eh-qipwqldad Xanax 0.5 mg PO daily PRN. Diet: NPO DVT PPx: Eliquis and ALPs CODE: FULL As Ranked By This Provider Problem List: 1. ESRD on hemodialysis 2. Sepsis 3. Uncontrolled hypertension Core Measures/Miscellaneous Acute Coronary Syndrome ACS Diagnosis: No Cerebrovascular Accident CVA/TIA Diagnosis: No Congestive Heart Failure CHF Diagnosis: No VTE (View Protocol) VTE Risk Factors: Acute medical illness, Obesity, Previous [facility] prophylaxis d/t: No contraindications No VTE Pharm Prophylaxis d/t: No contraindications VTE Diagnosis: No VTE Type: NONE VTE Confirmed by (Test): NONE Sepsis (View Protocol) Severe Sepsis Present: No Septic Shock Septic Shock Present: No Miscellaneous Documentation Attending Case Discussed With: DEEJAY FISHER MD Primary Care Physician: CLARA ANGEL MD Patient sees these Specialists Mine Wirer Luis Mariee MD Systems Management Consultant Keven Guardado MD Level of Patient Care: General Medicine KEON CRENSHAW 03/04/17 0110: General Information and HPI Allergies/Medications Home Med list Alprazolam (Xanax) 0.5 MG TABLET 1 TAB PO DAILY NEEDED PRN ANXIETY ( Reported) Amlodipine Besylate 10 MG TABLET 1 TAB PO DAILY BP (Reported) Apixaban (Eliquis) 5 MG TABLET 1 TAB PO BID BLOOD THINNER (Reported) Calcium (Elemental-Fr Calcarb) (Calcium Carbonate) 500 MG/5ML ORAL.SUSP 20 ML PO BID SUPPLEMENT (Reported) Clonidine 0.2 MG/24 HOUR PATCH.TDWK 1 PAT TOP QWED BP (Reported) Epoetin Carlos (Epogen) 10,000 UNIT/ML VIAL 10,000 UNIT SC Q2W ANEMIA (Reported ) Hydralazine HCl 100 MG TABLET 1 TAB PO TID HTN (Reported) Labetalol HCl 100 MG TABLET 3 TAB PO BID Hypertension Losartan (Cozaar) 100 MG TABLET 1 TAB PO DAILY HEART (Reported) Mupirocin 2 % OINT...G. 1 UDAY TOP AD CATH (Reported) apply to affected area(s) Omeprazole 20 MG CAPSULE.DR 1 TAB PO BID ESOPHAGITIS Ondansetron HCl (Zofran) 4 MG TABLET 1 TAB PO Q6-8P PRN NAUSEA (Reported) Resident Review Statement Resident Statement: examined this patient, discussed with programming internship, agreed with programming internship Other Findings: This is a 31 YO Female with extensive past medical history as outlined by Dr. Cordero. She has 2 catheters peritoneal and right IJ eloisa cath. The patient catheter was changed from left to right after developing a clot on the left and because of that was started on elliquis. She presented today with one-day history of fever, chills, general malaise and nausea with dry heaves about 4 times. At the same time she started noting fever the patient reports that she had severe headache and felt like she has had a stroke. Patient does not produce urine at borderline, she denied any sick contacts she has no cough, chest pain or shortness of breath unusual from her baseline due to anxiety. Vital signs on arrival febrile 102.6, heart rate of 98 respiration of 20 blood pressure 220/120 and saturating 93% on room air Physical examination: Patient lying comfortably on the bed not in acute distress , very cooperative Chest: Clear lungs bilaterally, mild erythema on the eloisa cath, tenderness on palpation of the catheter outside the neck, previous suture site that is slightly erythematous and very tender. The site of the previous catheter on the left has no evidence of infection. Abdomen: The peritoneal catheter site is clean and has no discharge, no and abdominal tenderness Extremities: No pitting edema cyanosis or clubbing HEENT: Pupils bilaterally equal and reacting to light, slightly dry mucous membranes, normal neck vessels Labs: Leukocytosis 15,000 with granulocytes 95.4% and 96 segmented bands, anemia H&H H&H 9.5 and 28.3, normal lactic acid of 0.7 CXR mild central venous congestion CT head no acute intracranial abnormality EKG: Normal sinus rhythm were regular normal axis and left ventricular hypertrophy and no ST-T wave changes Assessment and plan 31 years old with extensive past medical history end-stage renal disease currently on hemodialysis through an Eloisa catheter in the right IJ placed 2 weeks ago who presented with one-day history of general malaise and fever chills with temperature 102 on arrival with leukocytosis left shift to granulocytes 95.4% and high segmented neutrophils of 96 Problem list Sepsis possible source catheter sites Hypertension Anxiety History of blood clot Admit the patient to general medicine floor Patient presented with hypertension systolic of 220 but in the course of ER stay systolic decreased to 140, we will hold and restart her blood pressure medication a.m. meanwhile if blood pressure goes up we will consider restarting one medication after another. This patient has had stroke after sudden decrease in blood pressure and it is important to have permissive hypertension at this time Patient blood culture taken, continue to follow results She'll benefit from culturing of the tip of the Eloisa catheter given tenderness around the area ID consult Patient will be started on Ceftazidine vancomycin given extensive hospital contact, patient vancomycin to be dosed per trough levels, check a vancomycin and 3 does if less than 20 g per ml, if more than 20 repeat the level after 12 hours to determine need of dozing. Ceftazidine 500 mg every 24 Continue Xanax 0.5 mg daily as needed Nephrology consult for continuous dialysis patient gets dialysis every Wednesday and Wednesday Cardiology consult to rule out possibility of endocarditis as the source of infection Pain pathway with Tylenol, Vicodin and the hydromorphone Patient is full code NATALIA COTA, [facility] 03/04/17 0419: Attending MD Review Statement Attending Statement Attending MD Statement: examined this patient, discuss w/resident/PA/PROP SETTER, agreed w/resident/PA/PROP SETTER Attending Assessment/Plan: 31 yo F with h/o ESRD on HD, resistant HTN, CVA (2012, 2014), diastolic heart failure, hyperparathyroidism, MRSA peritonitis, is here for c/o headache, nausea , chills, dyspnea and fatigue. No URI symptoms or diarrhea or SSTI. Patient was recently admitted to [place] (01/31 02/06) for fluid overload, noted to have a dysfunctional PD catheter, hence left IJ HD catheter was placed on 02/04 and HD initiated. However, patient left AMA on February 06, despite of not having a dialysis slot until about a week later at [facility]. She reports being admitted at [facility] 2 weeks ago, found to have a clot in left IJ catheter (ANALYE swollen), that was then removed and right IJ catheter placed, eliquis initiated. Her last dialysis was yesterday 03/02 and the plan was to move her from TTS to MWF schedule. She continues to have the PD catheter, with a plan for eventual removal. She reports pain around the right IJ site. On ER arrival her BP was 220/120, Tmax 102.6, sats 97% on 2L. Labs: WBC 15, no bands, H/H 9.5/28.8, Na 134, BUN 29, creat 6.8, lactic acid normal, trop neg, proBNP 10088, AB.47/34/78/24. CXR: small right sided pleural effusion, interstitial pulmonary edema, mild central venous congestion, right jugular CVC catheter in position. CT head neg. EKG: SR. Echo (January 2017): EF 65-70%, diastolic dysfuntion+. 1. Sepsis in the setting of recent right jugular CVC catheter placement for dialysis. No evidence of pneumonia, patient does not make urine. No visible skin or soft tissue infections. Patient does have psoriasis. I have no other apparent source. GM admit, panculture, empiric broad spectrum antibiotics Ceftaz and Vanco. Catheter removal by IR and catheter tip to be sent for culture. ID to be consulted in AM. 2. ESRD on HD with mild fluid overload/ diastolic heart failure with resultant hypoxia. She will need dialysis in AM from ?PD catheter. Consult nephro and assess plan for HD or PD. Consult cardio (Dr. Mariee). 3. Uncontrolled hypertension due to inability to take PO meds 2/2 nausea. Patient's BP slowly resolved to 130/70 without the need for BP meds. Given she is septic, we are holding off restarting all BP meds. If she becomes hypotensive , we will not be able to fluid challenge her as she is dialysis patient. Please monitor BP and resume one medication at a time in AM. BP meds include Labetalol, losartan, hydralazine, clonidone and amlodipine. 4. Headache, nausea likely related to elevated uncontrolled BP. This has resolved since her BP stabilzed. DVT ppx Eliquis in the setting of left IJ thrombosis. Full code.
--- NOTE | 2017-03-04 00:46 | NUR ---
PT REQUESTED FOR HEADACHE. HOUSE STAFF INFORMED. ATTEMTPED TO ADMINISTER TYLENOL ORDERED. PT SOUND ASLEEP AT THIS TIME. TYLENOL NOT GIVEN.
--- NOTE | 2017-03-04 00:49 | NUR ---
PT BED ASSIGNMENT 114
--- NOTE | 2017-03-04 01:13 | NUR ---
TERI BORRERO Nurse Note by: OJHANA RASCON. I agree with the THEATRICAL RIGGER findings/evaluation of this patient's condition. Entered by: JOHANA RASCON. Date: 03/04/17 Time: 0113
[2017-03-04 01:38] VITALS: BP 130/70
--- NOTE | 2017-03-04 01:50 | NUR ---
ADMITTED A 31 YEAR OLD FEMALE BECAUSE OF FEVER AND HYPERTENSION. PT AWAKE ALERT AND ORIENTED. DENIES PAIN AT THIS TIME. TEMP 102.6 IN THE ER, NOW 97.1. NO SOB, SATURATION 97% ON 2L O2. LUNGS SOUND CLEAR. PT IS ON HEMODIALYSIS T,,S THRU AN ASHLEY CATH ON HER RIGHT CW. MANUAL BP 130/70. ON CONTACT ISOLATION FOR MRSA.
--- NOTE | 2017-03-04 04:21 | Admission Certification ---
Admission Certification Certification Statement - As attending physician, I certify that at the time of - admission, based on clinical presentation, severity of - symptoms, need for further diagnostic testing and - therapeutic interventions, and risk of adverse outcomes - without in-hospital treatment, in my clinical assessment, - this patient requires an acute hospital stay for a minimum - of two nights or longer. I have also considered psychsocial - factors such as support system, advanced age, financial - issues, cognitive issues, and failed out-patient treatments, - past re-admission history, safety of patient, and lack of - compliance as applicable. Specific rationale supporting this admission is: Sepsis possibly from recent Glenroy cath placement. Needs IV antibiotics, ID and nephro consult.
[2017-03-04 08:14] LABS: ABSOLUTE BASOPHIL COUNT 0 /CUMM (0.0-0.2); ABSOLUTE EOSINOPHIL COUNT 0 /CUMM (0.0-0.7); ABSOLUTE LYMPH COUNT 0.7 /CUMM (1.2-3.4); ABSOLUTE MONOCYTE COUNT 0.5 /CUMM (0.10-0.60); BASOPHIL % 0 % (0.0-2.0); EOSINOPHIL % 0 % (0-5); GRANULOCYTE % 94.9 % (42.2-75.2); HEMATOCRIT 24.3 % (37-47); MEAN CORPUSCULAR HGB 30.5 PG (27.0-31.0); MEAN CORPUSCULAR HGB CONC 32.9 G/DL (33.0-37.0); MEAN CORPUSCULAR VOLUME 92.7 FL (81.0-99.0); MEAN PLATELET VOLUME 8.5 FL (7.4-10.4); PLATELET COUNT 240 /CUMM (130-400); RBC DISTRIBUTION WIDTH 16.7 % (11.5-14.5); RED BLOOD CELL CT 2.62 /CUMM (4.20-5.40)
[2017-03-04 09:30] VITALS: BP 218/100
[2017-03-04 09:45] LABS: WHITE BLOOD CELL COUNT 23.2 /CUMM (4.8-10.8)
--- NOTE | 2017-03-04 10:54 | Cons- Nephrology ---
General Information and HPI Consulting Request Date of Consult: 03/04/17 Requested By: NATALIA COTA,DEEJAY History of Present Illness: This is one of many admissions for ths 31 yo F with poor medical and dialysis compliance. She was initially on CAPD but changed over to HD due to poor dialysis compliance. She is currently dialyzed out of the [facility] dialysis unit. She came in last night with fever to 102.6, SOB and generalized aches. Blood cultures were sent and she was started on broad spectrum antibiotics. She denies cough but does have some SOB. She denies abdominal pain/N/V. She does complain of some neck tenderness at the site of her Glenroy catheter (placed 2 wks ago). Allergies/Medications Allergies: Coded Allergies: Iodinated Contrast- Oral and IV Dye (Iodinated Contrast Media - Oral and) ( Intermediate, HIVES AND SWELLING 12/21/16) morphine (Intermediate, HIVES 12/21/16) Penicillins (RASH 12/21/16) hydroxyzine (PER PT UNKNOWN 12/21/16) lisinopril (ANGIODEMA 12/21/16) LEIDA Inhibitors (ANGIODEMA 12/21/16) Home Med List: Alprazolam (Xanax) 0.5 MG TABLET 1 TAB PO DAILY NEEDED PRN ANXIETY ( Reported) Amlodipine Besylate 10 MG TABLET 1 TAB PO DAILY BP (Reported) Apixaban (Eliquis) 5 MG TABLET 1 TAB PO BID BLOOD THINNER (Reported) Calcium (Elemental-Fr Calcarb) (Calcium Carbonate) 500 MG/5ML ORAL.SUSP 20 ML PO BID SUPPLEMENT (Reported) Clonidine 0.2 MG/24 HOUR PATCH.TDWK 1 PAT TOP QWED BP (Reported) Epoetin Carlos (Epogen) 10,000 UNIT/ML VIAL 10,000 UNIT SC Q2W ANEMIA (Reported ) Hydralazine HCl 100 MG TABLET 1 TAB PO TID HTN (Reported) Labetalol HCl 100 MG TABLET 3 TAB PO BID Hypertension Losartan (Cozaar) 100 MG TABLET 1 TAB PO DAILY HEART (Reported) Mupirocin 2 % OINT...G. 1 UDAY TOP AD CATH (Reported) apply to affected area(s) Omeprazole 20 MG CAPSULE.DR 1 TAB PO BID ESOPHAGITIS Ondansetron HCl (Zofran) 4 MG TABLET 1 TAB PO Q6-8P PRN NAUSEA (Reported) Review of Systems Review of Systems: As in HPI otherwise negqative. 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 child, parent Services at Home: None Primary Language: Upper Sorbian Smoking Status: Smoker Current Stat Ukn (Unclear if Still Smokes) Living Will? yes Functional Ability ADLs Independent: dressing, eating, toileting, bathing. Ambulation: independent IADLs Independent: shopping, housework, finances, food prep, telephone, transportation , medication admin. Employment History Employment: Disability Exam & Diagnostic Data Vital Signs and I&O F in ICU BP 218/100 T 100.3 Tm 102.4 P 84 Skin neg rash Eyes anicteric ENT moist membranes Neck R IJ Glenroy, do drainage from site, no erythema, some tenderness along catheter tract in neck. no warmth or fluctuance. Lungs diminished bases, no rales Cor RRR Abd soft N/T PD cath in place Ext tr edema Neuro nonfocal Results Pertinent Lab Results: Hg 8.0 WBC 23.2 134 / 97 / 2 9/ 4.6 / 23 / 6.8\ BC NGTD Assessment/Plan Assessment/Recommendations Assessment: 31 yo with poor medical complaince now admitted with uncontrolled BP and fever. No obvious source of fever and BC pending. She has been started on appropriate antibiotics. She has no abdominal pain and doubt peritonitis but will send PD fluid for cell count and culture. Expect to see cell count in double digits given lack of PD but interested in presence/absence of left shift. I am more concerned about her GLENROY catheter. I will send BC from this with dialysis today. She is already on vancomycin and will await culture results. Agree with HTN managment by ICU team. Dialysis later today. Will follow. Lefty Gu MD Recommendations: .
--- NOTE | 2017-03-04 11:22 | PN- Att Addend ---
Attending Addendum Attending Brief Note "31 yo F with h/o ESRD on HD, resistant HTN, CVA (2012, 2014), diastolic heart failure, hyperparathyroidism, MRSA peritonitis, is here for c/o headache, nausea , chills, dyspnea and fatigue. No URI symptoms or diarrhea or SSTI. Patient was recently admitted to [facility] (01/31 02/06) for fluid overload, noted to have a dysfunctional PD catheter, hence left IJ HD catheter was placed on 02/04 and HD initiated. However, patient left AMA on February 06, despite of not having a dialysis slot until about a week later at [facility]. She reports being admitted at [facility] 2 weeks ago, found to have a clot in left IJ catheter (PEDRO swollen), that was then removed and right IJ catheter placed, eliquis initiated. Her last dialysis was yesterday 03/02 and the plan was to move her from TTS to MWF schedule. She continues to have the PD catheter, with a plan for eventual removal. She reports pain around the right IJ site. " On ER arrival her BP was 220/120, Tmax 102.6, sats 97% on 2L. Labs: WBC 15, no bands, H/H 9.5/28.8, Na 134, BUN 29, creat 6.8, lactic acid normal, trop neg, proBNP 85200, AB.47/34/78/24. CXR: small right sided pleural effusion, interstitial pulmonary edema, mild central venous congestion, right jugular CVC catheter in position. CT head neg. EKG: SR. Echo (January 2017): EF 65-70%, diastolic dysfuntion+. VITALS 100.3 HR 80s, BP 220/110, sats 97% on 2l. Labs this am shows increasing leukocytosis WBC 23.2, blood culture GPC+, hb 8.0, Na 134, K 4.6, AG 13, Cr 6.8 Glu 92 ASSESSMENT and PLAN 1. Sepsis in the setting of recent right jugular CVC catheter placement for dialysis. No evidence of pneumonia, patient does not make urine. No visible skin or soft tissue infections. Patient does have psoriasis. GM admit, panculture, STARTED empiric broad spectrum antibiotics Ceftaz and Vanco. ID consult. 2. ESRD on HD with mild fluid overload/ diastolic heart failure with resultant hypoxia. Dialysis as per nephro. 3. Uncontrolled hypertension due to inability to take PO meds 2/2 nausea. Restart BP meds, follow nephrology/cardiology. 4. Headache, nausea likely related to elevated uncontrolled BP. This has resolved since her BP stabilzed. DVT ppx Eliquis in the setting of left IJ thrombosis. Full code.
--- NOTE | 2017-03-04 13:14 | Cons- Infect Disease ---
General Information and HPI Consulting Request Date of Consult: 03/04/17 Requested By: NATALIA COTA,DEEJAY Reason for Consult: Rule out line sepsis Source of Information: patient, old records History of Present Illness: This is a 31-year-old woman with a history of hypertension, with multiple hospitalizations for hypertensive urgency, status post right basal ganglia lacunar infarct, psoriasis and end-stage renal disease, presumed secondary to hypertension nephrosclerosis, maintained on peritoneal dialysis via a Tenckhoff catheter until one month prior to admission, at which time she was hospitalized with fluid overload, not responsive to peritoneal dialysis, with initiation of hemodialysis via a left IJ Glenroy catheter, hospitalized at [facility] 2 weeks prior to admission, where she was found to have a left IJ thrombus, requiring removal of the catheter and placement of a new Glenroy catheter in the right IJ, admitted on March 03 after presenting to the emergency room with the acute onset of fatigue, nausea, headaches and chills. On admission she was febrile to 102.6. Blood pressure was 220/120. Laboratory data revealed a white blood cell count of 15,000, with 96 segs, BUN/creatinine 29 and 6.8, with normal liver enzymes, proBNP 88,200, ABG 7.47/34/78 on 2 L. Chest x-ray revealed mild central venous congestion, with small right pleural effusion and probable left pleural effusion. CT of the head was negative for any acute process. She was given Vancomycin and Ceftazidime and admitted to the ICU. She appears to have defervesced overnight. This morning blood cultures 2 were reported positive for gram-positive cocci in cluster, with one bottle also with gram-positive cocci in pairs. She continues to feel poorly, with fatigue, and she noticed discomfort over the right IJ catheter. Allergies/Medications Allergies: Coded Allergies: Iodinated Contrast- Oral and IV Dye (Iodinated Contrast Media - Oral and) ( Intermediate, HIVES AND SWELLING 12/21/16) morphine (Intermediate, HIVES 12/21/16) Penicillins (RASH 12/21/16) hydroxyzine (PER PT UNKNOWN 12/21/16) lisinopril (ANGIODEMA 12/21/16) LEIDA Inhibitors (ANGIODEMA 12/21/16) Home Med List: Alprazolam (Xanax) 0.5 MG TABLET 1 TAB PO DAILY NEEDED PRN ANXIETY ( Reported) Amlodipine Besylate 10 MG TABLET 1 TAB PO DAILY BP (Reported) Apixaban (Eliquis) 5 MG TABLET 1 TAB PO BID BLOOD THINNER (Reported) Calcium (Elemental-Fr Calcarb) (Calcium Carbonate) 500 MG/5ML ORAL.SUSP 20 ML PO BID SUPPLEMENT (Reported) Clonidine 0.2 MG/24 HOUR PATCH.TDWK 1 PAT TOP QWED BP (Reported) Epoetin Carlos (Epogen) 10,000 UNIT/ML VIAL 10,000 UNIT SC Q2W ANEMIA (Reported ) Hydralazine HCl 100 MG TABLET 1 TAB PO TID HTN (Reported) Labetalol HCl 100 MG TABLET 3 TAB PO BID Hypertension Losartan (Cozaar) 100 MG TABLET 1 TAB PO DAILY HEART (Reported) Mupirocin 2 % OINT...G. 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) MRSA peritonitis drug fever attributed to vancomycin History of MRSA: Yes History of VRE: No History of CDIFF: No Isolation History: Contact Surgical History Surgical History: , hernia repair-inguinal, peritoneal dialysis catheter placement Glenroy cath placement and removal parathyroidectomy Family History Relations & Conditions If Any: FATHER FH: CAD (coronary artery disease) FH: HTN (hypertension) FH: stroke grandmother FH: colon cancer SISTER ASD (atrial septal defect) MOTHER FH: diabetes mellitus FH: HTN (hypertension) Psychosocial History Who Do You Live With? child, parent Services at Home: None Primary Language: Slovak Smoking Status: Smoker Current Stat Ukn (Unclear if Still Smokes) Living Will? yes Functional Ability ADLs Independent: dressing, eating, toileting, bathing. Ambulation: independent IADLs Independent: shopping, housework, finances, food prep, telephone, transportation , medication admin. Employment History Employment: Disability Review of Systems Review of Systems All Other Systems: Reviewed and Negative Exam & Diagnostic Data Last 24 Hrs of Vital Signs/I&O Vital Signs Date Time Temp Pulse Resp B/P B/P Pulse O2 O2 Flow FiO2 Mean Ox Delivery Rate 03/04 1229 100.3 03/04 1224 80 206/90 03/04 1105 80 218/110 03/04 0930 Nasal 2.0L Cannula 03/04 0930 100.3 84 24 218/100 93 Nasal 3.0L Cannula 03/04 0142 97 Nasal 2.0L Cannula 03/04 0138 97.1 74 22 130/70 03/04 0138 97 Nasal 2.0L Cannula 03/04 0051 97.0 73 20 142/75 97 Nasal 2.0L Cannula 03/03 2253 98.8 74 18 141/74 96 Room Air 03/03 2129 102.4 03/03 2129 102.4 94 20 176/62 94 Room Air 03/03 2050 96 Room Air 03/03 1923 102.6 98 20 220/120 93 Room Air Intake & Output 03/04 1600 08 0800 03/04 0000 Intake Total Output Total 0 Balance 0 Output, Stool 0 Output, Urine 0 Patient 161 lb 150 lb Weight Weight Bed scale Reported by Patient Measurement Method Physical Exam Other Physical Findings: She is awake and alert in no acute distress. MAXIMUM TEMPERATURE 102.6. Skin reveals no rash. HEENT exam is negative. Neck is supple with no adenopathy; right IJ catheter site slightly erythematous and tender to palpation, with no drainage. Lungs bibasilar crackles. Heart regular rhythm with a 2/6 systolic ejection murmur. Abdomen is soft, nontender with positive bowel sounds; Tenckhoff catheter site with no inflammation. Back no CVA tenderness. Extremities no cyanosis, clubbing or edema. Neuro is without focality. Last 24 Hours of Lab Results: Laboratory Tests 03/04 03/03 0545 2308 Chemistry Lactic Acid Cancelled Hematology CBC w Diff MAN DIFF ORDERED WBC (4.8 - 10.8 /CUMM) 23.2 H RBC (4.20 - 5.40 /CUMM) 2.62 L Hgb (12.0 - 16.0 G/DL) 8.0 L Hct (37 - 47 %) 24.3 L MCV (81.0 - 99.0 FL) 92.7 MCH (27.0 - 31.0 PG) 30.5 RDW (11.5 - 14.5 %) 16.7 H Plt Count (130 - 400 /CUMM) 240 MPV (7.4 - 10.4 FL) 8.5 Gran % (42.2 - 75.2 %) 94.9 H Lymphocytes % (20.5 - 51.1 %) 2.9 L Monocytes % (1.7 - 9.3 %) 2.2 Eosinophils % (0 - 5 %) 0 Basophils % (0.0 - 2.0 %) 0 L Absolute Granulocytes (1.4 - 6.5 /CUMM) 22.0 H Segmented Neutrophils (42.2 - 75.2 %) 75 Band Neutrophils (0.0 - 5.0 %) 22 H Absolute Lymphocytes (1.2 - 3.4 /CUMM) 0.7 L Lymphocytes (20.5 - 51.1 %) 2 L Monocytes (1.7 - 9.3 %) 1 L Absolute Monocytes (0.10 - 0.60 /CUMM) 0.5 Absolute Eosinophils (0.0 - 0.7 /CUMM) 0 Absolute Basophils (0.0 - 0.2 /CUMM) 0 Anisocytosis 1+ PUBS MCHC (33.0 - 37.0 G/DL) 32.9 L 03/03 Blood Gas pH (7.35 - 7.45 PH) 7.47 H pCO2 (35 - 45 TORR) 34 L pO2 (80 - 100 TORR) 78 L HCO3 (21 - 28 MEQ/L) 24 ABG O2 Sat (Measured) (>96.0 %) 96.0 Carboxyhemoglobin (1.5 - 5.0 %) 0.3 L O2 Concentration % 2L O2 Delivery Method NC Chemistry Sodium (137 - 145 mmol/L) 134 L Potassium (3.5 - 5.1 mmol/L) 4.6 Chloride (98 - 107 mmol/L) 97 L Carbon Dioxide (22 - 30 mmol/L) 23 Anion Gap (5 - 16) 13 BUN (7 - 17 mg/dL) 29 H Creatinine (0.5 - 1.0 mg/dL) 6.8 *H Estimated GFR (>60 ml/min) 7 L BUN/Creatinine Ratio (7 - 25 %) 4.3 L Glucose (65 - 99 mg/dL) 92 Lactic Acid (0.7 - 2.1 mmol/L) 0.7 Calcium (8.4 - 10.2 mg/dL) 8.9 Total Bilirubin (0.2 - 1.3 mg/dL) 0.5 AST (14 - 36 U/L) 18 ALT (9 - 52 U/L) 40 Alkaline Phosphatase (<127 U/L) 93 Troponin I (< 0.11 ng/ml) 0.05 [id number] Pept (<125 pg/mL) 13718 H Total Protein (6.3 - 8.2 g/dL) 6.3 Albumin (3.5 - 5.0 g/dL) 3.8 Globulin (1.9 - 4.2 gm/dL) 2.5 Albumin/Globulin Ratio (1.1 - 2.2 %) 1.5 Beta HCG, Quant (mIU/mL) < 2.4 Hematology CBC w Diff MAN DIFF ORDERED WBC (4.8 - 10.8 /CUMM) 15.0 H RBC (4.20 - 5.40 /CUMM) 3.12 L Hgb (12.0 - 16.0 G/DL) 9.5 L Hct (37 - 47 %) 28.8 L MCV (81.0 - 99.0 FL) 92.1 MCH (27.0 - 31.0 PG) 30.3 RDW (11.5 - 14.5 %) 17.1 H Plt Count (130 - 400 /CUMM) 300 MPV (7.4 - 10.4 FL) 8.4 Gran % (42.2 - 75.2 %) 95.4 H Lymphocytes % (20.5 - 51.1 %) 3.0 L Monocytes % (1.7 - 9.3 %) 0.9 L Eosinophils % (0 - 5 %) 0.7 Basophils % (0.0 - 2.0 %) 0 L Absolute Granulocytes (1.4 - 6.5 /CUMM) 14.3 H Segmented Neutrophils (42.2 - 75.2 %) 96 H Absolute Lymphocytes (1.2 - 3.4 /CUMM) 0.5 L Lymphocytes (20.5 - 51.1 %) 3 L Absolute Monocytes (0.10 - 0.60 /CUMM) 0.1 L Absolute Eosinophils (0.0 - 0.7 /CUMM) 0.1 Basophils (0.0 - 2.0 %) 1 Absolute Basophils (0.0 - 0.2 /CUMM) 0.0 Platelet Estimate (ADEQUATE) VERIFIED BY SMEAR Anisocytosis 1+ Ovalocytes FEW PUBS MCHC (33.0 - 37.0 G/DL) 32.9 L Miscellaneous Phlebotomy Draw Site RIGHT RADIAL Other Body Source Fld Total RBCs Counted (%) 100 03/03 2008 Urines Urine Color Cancelled Urine Clarity Cancelled Urine pH Cancelled Ur Specific [place] Cancelled Urine Protein Cancelled Urine Ketones Cancelled Urine Nitrite Cancelled Urine Bilirubin Cancelled Urine Urobilinogen Cancelled Ur Leukocyte Esterase Cancelled Ur Microscopic Cancelled Urine Hemoglobin Cancelled Urine Glucose Cancelled Last 24 Hours of [place] Results: Blood cultures 2 March 03 positive for gram-positive cocci, with one bottle also with gram-positive cocci in pairs Diagnostic Data Recent Imaging Findings: Chest x-ray March 03 revealed mild to moderate central venous congestion, with a small right pleural effusion and a probable left pleural effusion CT of the head March 03 no acute process Assessment/Plan Assessment/Plan Impression: This is a 31-year-old woman with end-stage renal disease, maintained on peritoneal dialysis until one month prior to admission, at which point she was changed to hemodialysis, with a left IJ Glenroy catheter placed, complicated by the development of a thrombus in the left IJ, requiring removal of the catheter and placement of a new catheter in the right IJ at [facility], admitted on March 03 with the acute onset of fatigue, nausea, headaches and chills, found to be febrile with a leukocytosis and with blood cultures 2 positive for gram- positive cocci. The most likely source of her sepsis is the right IJ catheter and the organism will likely prove to be MRSA, given her history. The presence of pairs in one of the blood cultures suggests the possibility of a mixed infection, but will need to await final identification. If this proves to be Staph aureus (or MRSA) the catheter will very likely need to be removed in order to clear the infection. If it is Coag-negative staph, the catheter can be kept in place as line sepsis with this organism can sometimes be treated with antibiotics alone and without removal of the catheter. Have discussed with Renal, who plans to dialyze her today and, possibly, tomorrow, after which the catheter can likely be removed (assuming the organism is Staph aureus) Suggestion: 1. Repeat blood cultures 2 2. Echocardiogram 3. Would send PD fluid for cell count and culture 4. Vancomycin random level prior to dialysis today 5. Redose with Vancomycin today after dialysis per hemodialysis protocol Consult Acknowledgment - Thank you for your consult request.
[2017-03-04 13:25] LABS: ABSOLUTE BASOPHIL COUNT 0 /CUMM (0.0-0.2); ABSOLUTE EOSINOPHIL COUNT 0.1 /CUMM (0.0-0.7); ABSOLUTE GRANULOCYTE CT 21.3 /CUMM (1.4-6.5); ABSOLUTE LYMPH COUNT 0.3 /CUMM (1.2-3.4); ABSOLUTE MONOCYTE COUNT 0.3 /CUMM (0.10-0.60); BASOPHIL % 0 % (0.0-2.0); EOSINOPHIL % 0.2 % (0-5); GRANULOCYTE % 96.9 % (42.2-75.2); HEMATOCRIT 25.2 % (37-47); MEAN CORPUSCULAR HGB CONC 32.5 G/DL (33.0-37.0); MEAN CORPUSCULAR VOLUME 92.1 FL (81.0-99.0); MEAN PLATELET VOLUME 8.5 FL (7.4-10.4); PLATELET COUNT 253 /CUMM (130-400); RBC DISTRIBUTION WIDTH 16.9 % (11.5-14.5); RED BLOOD CELL CT 2.74 /CUMM (4.20-5.40); WHITE BLOOD CELL COUNT 21.9 /CUMM (4.8-10.8)
--- NOTE | 2017-03-04 14:55 | Cons- Cardiology ---
General Information and HPI Consulting Request Date of Consult: 03/04/17 Requested By: NATALIA COTA,DEEJAY Reason for Consult: UNcontrolled HTN Source of Information: patient, old records Exam Limitations: no limitations History of Present Illness: Unfortunate 31 year old female well known to me. Recently discharged from [facility] after an admission for HTN and had dialysis access catheter placed left IJ at that time. Following discharge there were apparently issues with the catheter which was removed and replaced on the contralateral side. The patient is now readmitted with probable sepsis and possible infection of the new catheter. Currently awaiting identification of the culprit organism prior to further plans. Labile BP noted with episodes of elevated BP. The patient complains of discomfort, nausea and chills but no specific cardiovascular complaints. Allergies/Medications Allergies: Coded Allergies: Iodinated Contrast- Oral and IV Dye (Iodinated Contrast Media - Oral and) ( Intermediate, HIVES AND SWELLING 12/21/16) morphine (Intermediate, HIVES 12/21/16) Penicillins (RASH 12/21/16) hydroxyzine (PER PT UNKNOWN 12/21/16) lisinopril (ANGIODEMA 12/21/16) LEIDA Inhibitors (ANGIODEMA 12/21/16) Home Med List: Alprazolam (Xanax) 0.5 MG TABLET 1 TAB PO DAILY NEEDED PRN ANXIETY ( Reported) Amlodipine Besylate 10 MG TABLET 1 TAB PO DAILY BP (Reported) Apixaban (Eliquis) 5 MG TABLET 1 TAB PO BID BLOOD THINNER (Reported) Calcium (Elemental-Fr Calcarb) (Calcium Carbonate) 500 MG/5ML ORAL.SUSP 20 ML PO BID SUPPLEMENT (Reported) Clonidine 0.2 MG/24 HOUR PATCH.TDWK 1 PAT TOP QWED BP (Reported) Epoetin Carlos (Epogen) 10,000 UNIT/ML VIAL 10,000 UNIT SC Q2W ANEMIA (Reported ) Hydralazine HCl 100 MG TABLET 1 TAB PO TID HTN (Reported) Labetalol HCl 100 MG TABLET 3 TAB PO BID Hypertension Losartan (Cozaar) 100 MG TABLET 1 TAB PO DAILY HEART (Reported) Mupirocin 2 % OINT...G. 1 UDAY TOP AD CATH (Reported) apply to affected area(s) Omeprazole 20 MG CAPSULE.DR 1 TAB PO BID ESOPHAGITIS Ondansetron HCl (Zofran) 4 MG TABLET 1 TAB PO Q6-8P PRN NAUSEA (Reported) Current Medications: Current Medications Sig/Bryan Start time Last Medication Dose Route Stop Time Status Admin Acetaminophen 650 MG Q6P PRN 03/04 0115 AC PO Acetaminophen 650 MG ONCE ONE 03/04 0015 DC PO 03/04 0016 Acetaminophen 0 .STK-MED ONE 03/03 2046 DC IV Acetaminophen 1,000 MG ONCE ONE 03/03 2045 DC 03/03 IV 03/03 Acetaminophen 650 MG ONCE ONE 03/03 2030 CAN PO 03/03 203 Acetaminophen/ 1 TAB Q6P PRN 03/04 0115 AC Hydrocodone Bitart PO Alprazolam 0.5 MG DAILY NEEDED PRN 03/04 0145 AC 03/04 PO 03/11 0144 1223 Amlodipine Besylate 10 MG DAILY 03/04 1015 AC PO Amlodipine Besylate 10 MG DAILY 03/04 1000 CAN PO Apixaban 5 MG BID 03/04 0134 AC 03/04 PO 1115 Calcium 600 MG BID 03/04 1000 AC PO Ceftazidime 0 .STK-MED ONE 03/03 2232 DC .ROUTE Ceftazidime 2,000 MG ONCE ONE 03/03 2230 DC 03/03 IV 03/03 2231 2230 Clonidine 2 PAT Q168 03/04 1057 AC 03/04 TOP 1105 Clonidine 2 PAT Q168H 03/04 1015 CAN TOP Clonidine 2 PAT Q168H 03/04 0145 DC TOP Hydralazine HCl 100 MG TID 03/04 1045 AC 03/04 PO 1224 Hydralazine HCl 10 MG TID 03/04 1000 CAN PO Hydromorphone HCl 0.5 MG Q6-PRN PRN 03/04 0500 AC 03/04 IV 1108 Hydromorphone HCl 0 .STK-MED ONE 03/03 2125 DC .ROUTE Hydromorphone HCl 0.5 MG ONCE ONE 03/03 2115 DC 03/03 IV 03/03 Ketorolac 30 MG ONCE ONE 03/03 2145 DC 03/03 Tromethamine IV 03/03 2146 214 Ketorolac 0 .STK-MED ONE 03/03 2145 DC Tromethamine .ROUTE Labetalol HCl 300 MG BID 03/04 1000 CAN PO Losartan Potassium 100 MG DAILY 03/04 1045 AC 03/04 PO 1106 Losartan Potassium 100 MG DAILY 03/04 1000 CAN PO Mupirocin 1 UDAY TIDPRN PRN 03/04 0145 AC TOP Omeprazole 20 MG 0700,1600 03/04 0700 AC 03/04 PO 0542 Ondansetron HCl 4 MG Q6P PRN 03/04 1015 AC 03/04 IV 1013 Ondansetron HCl 0 .STK-MED ONE 03/03 2046 DC .ROUTE Ondansetron HCl 4 MG ONCE ONE 03/03 2030 DC / IV 03/03 203 204 Vancomycin HCl 750 MG ONCE ONE 03/04 1700 AC Sodium Chloride 250 ML IV 03/04 1759 Vancomycin HCl 1,000 MG ONE ONE 03/04 1300 CAN Sodium Chloride 250 ML IV 03/04 1359 Vancomycin HCl See Dose TuThSa PRN 03/04 1215 AC Insts (1) IV Vancomycin HCl 0 .STK-MED ONE 03/03 2238 DC .ROUTE Vancomycin HCl 1,000 MG ONCE ONE 03/03 2230 DC 03/03 Sodium Chloride 250 ML IV 03/03 2329 2251 Dose Instructions: (1)Vancomycin HCl: DOSE BASED ON RANDOM VANCO LEVELS ON DIALYSIS DAYS Past History Travel History Traveled to [place] past 21 day No Medical History Neurological: CVA (multiple ischemic/hemoorhagic), migraine, right basal ganglia infarct (2012) left basal ganglia lacunar infarct left BURSAR stroke (March 2015) EENT: hypertensive retinopathy Cardiovascular: hypertension, hyperlipidemia, mitral regurgitation, LVH Respiratory: asthma, pneumonia Gastrointestinal: lower GI bleed (November 2016), duodenitis gastritis Hepatic: NONE Renal: ESRD on HD (previously on PD) Musculoskeletal: chronic back pain, sciatica Psychiatric: anxiety Endocrine: hyperparathyroidism (secondary), obesity Blood Disorders: anemia of CKD left IJ thrombosis after dialysis cathether placement Cancer(s): NONE 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 child, parent Services at Home: None Primary Language: Tajik Smoking Status: Smoker Current Stat Ukn (Unclear if Still Smokes) Living Will? yes Functional Ability ADLs Independent: dressing, eating, toileting, bathing. Ambulation: independent IADLs Independent: shopping, housework, finances, food prep, telephone, transportation , medication admin. Employment History Employment: Disability ECHO Results (as available) Report: CONCLUSIONS 1. Mild aortic sclerosis is present with mild aortic insufficiency. 2. Mitral leaflet thickening is present with mild to moderate anular calcification and mild mitral insufficiency with moderate left atrial enlargement. 3. There is no pericardial fluid present. 4. The left ventricular chamber size is normal with severe concentric hypertrophy and a normal ejection fraction with no resting wall motion abnormalities. Mild diastolic dysfunction is present. 5. Mild to moderate tricuspid insufficiency is present with mild pulmonic insufficiency and mild pulmonary hypertension with an estimated RV systolic pressure of 46 mmHg. 6. THere appearts to be a mobile echodensity present in the distal aspect of the transverse aortic arch. Further assessment is suggested if clinically indicated (chest CT, AARON, etc.). Exam & Diagnostic Data Vital Signs and I&O Vital Signs Date Time Temp Pulse Resp B/P B/P Pulse O2 O2 Flow FiO2 Mean Ox Delivery Rate 03/04 1229 100.3 03/04 1224 80 206/90 03/04 1105 80 218/110 03/04 0930 Nasal 2.0L Cannula 03/04 09 100.3 84 24 218/100 93 Nasal 3.0L Cannula 03/04 0142 97 Nasal 2.0L Cannula 03/04 0138 97.1 74 22 130/70 03/04 0138 97 Nasal 2.0L Cannula 03/04 0051 97.0 73 20 142/75 97 Nasal 2.0L Cannula 03/03 2253 98.8 74 18 141/74 96 Room Air 03/03 2129 102.4 03/03 2129 102.4 94 20 176/62 94 Room Air 03/03 2050 96 Room Air 03/03 1923 102.6 98 20 220/120 93 Room Air Intake & Output 03/04 1600 08 0800 06/08 0000 03/03 1600 03/03 0800 03/03 0000 Intake Total Output Total 0 Balance 0 Output, Stool 0 Output, Urine 0 Patient 161 lb 150 lb Weight Weight Bed scale Reported by Patient Measurement Method Physical Exam: General Appearance Oriented X3, No Acute Distress, Drowsy, ill appearing HEENT Atraumatic, Dry Mucous Membranes Neck Supple, carotids normal bilaterally Cardiovascular Regular Rate, Normal S1, Normal S2, 2/6 systolic murmur Lungs Clear to Auscultation bilaterally Abdomen Soft, No Tenderness, Positive Bowel Sounds, Peritoneal Dialysis Catheter in Place with no Erythema, Tenderness or Swelling at the Site Extremities No Clubbing, No Cyanosis, No Edema, RIJ in place with Surrounding Erythema and Tenderness, Site of Old Stitch Medial to RIJ with Erythema and Tenderness Labs/Ashwin Results: Laboratory Tests 03/04 03/04 1230 1206 Chemistry Sodium (137 - 145 mmol/L) 133 L Potassium (3.5 - 5.1 mmol/L) 5.0 Chloride (98 - 107 mmol/L) 98 Carbon Dioxide (22 - 30 mmol/L) 23 Anion Gap (5 - 16) 12 BUN (7 - 17 mg/dL) 41 H Creatinine (0.5 - 1.0 mg/dL) 8.0 *H Estimated GFR (>60 ml/min) 6 L BUN/Creatinine Ratio (7 - 25 %) 5.1 L Glucose (65 - 99 mg/dL) 69 Calcium (8.4 - 10.2 mg/dL) 8.7 Phosphorus (2.5 - 4.5 mg/dL) 4.8 H Magnesium (1.6 - 2.3 mg/dL) 1.9 Albumin (3.5 - 5.0 g/dL) 3.2 L Hematology CBC w Diff MAN DIFF ORDERED WBC (4.8 - 10.8 /CUMM) 21.9 H RBC (4.20 - 5.40 /CUMM) 2.74 L Hgb (12.0 - 16.0 G/DL) 8.2 L Hct (37 - 47 %) 25.2 L MCV (81.0 - 99.0 FL) 92.1 MCH (27.0 - 31.0 PG) 30.0 RDW (11.5 - 14.5 %) 16.9 H Plt Count (130 - 400 /CUMM) 253 MPV (7.4 - 10.4 FL) 8.5 Gran % (42.2 - 75.2 %) 96.9 H Lymphocytes % (20.5 - 51.1 %) 1.3 L Monocytes % (1.7 - 9.3 %) 1.6 L Eosinophils % (0 - 5 %) 0.2 Basophils % (0.0 - 2.0 %) 0 L Absolute Granulocytes (1.4 - 6.5 /CUMM) 21.3 H Segmented Neutrophils (42.2 - 75.2 %) 91 H Band Neutrophils (0.0 - 5.0 %) 5 Absolute Lymphocytes (1.2 - 3.4 /CUMM) 0.3 L Lymphocytes (20.5 - 51.1 %) 1 L Monocytes (1.7 - 9.3 %) 3 Absolute Monocytes (0.10 - 0.60 /CUMM) 0.3 Absolute Eosinophils (0.0 - 0.7 /CUMM) 0.1 Absolute Basophils (0.0 - 0.2 /CUMM) 0 Platelet Estimate (ADEQUATE) ADEQUATE Normocytic RBCs VERIFIED Normochromic RBCs VERIFIED PUBS MCHC (33.0 - 37.0 G/DL) 32.5 L Toxicology Random Vancomycin (ug/ml) 16.9 Cancelled 03/04 03/03 0545 2308 Chemistry Lactic Acid Cancelled Hematology CBC w Diff MAN DIFF ORDERED WBC (4.8 - 10.8 /CUMM) 23.2 H RBC (4.20 - 5.40 /CUMM) 2.62 L Hgb (12.0 - 16.0 G/DL) 8.0 L Hct (37 - 47 %) 24.3 L MCV (81.0 - 99.0 FL) 92.7 MCH (27.0 - 31.0 PG) 30.5 RDW (11.5 - 14.5 %) 16.7 H Plt Count (130 - 400 /CUMM) 240 MPV (7.4 - 10.4 FL) 8.5 Gran % (42.2 - 75.2 %) 94.9 H Lymphocytes % (20.5 - 51.1 %) 2.9 L Monocytes % (1.7 - 9.3 %) 2.2 Eosinophils % (0 - 5 %) 0 Basophils % (0.0 - 2.0 %) 0 L Absolute Granulocytes (1.4 - 6.5 /CUMM) 22.0 H Segmented Neutrophils (42.2 - 75.2 %) 75 Band Neutrophils (0.0 - 5.0 %) 22 H Absolute Lymphocytes (1.2 - 3.4 /CUMM) 0.7 L Lymphocytes (20.5 - 51.1 %) 2 L Monocytes (1.7 - 9.3 %) 1 L Absolute Monocytes (0.10 - 0.60 /CUMM) 0.5 Absolute Eosinophils (0.0 - 0.7 /CUMM) 0 Absolute Basophils (0.0 - 0.2 /CUMM) 0 Anisocytosis 1+ PUBS MCHC (33.0 - 37.0 G/DL) 32.9 L 03/03 Blood Gas pH (7.35 - 7.45 PH) 7.47 H pCO2 (35 - 45 TORR) 34 L pO2 (80 - 100 TORR) 78 L HCO3 (21 - 28 MEQ/L) 24 ABG O2 Sat (Measured) (>96.0 %) 96.0 Carboxyhemoglobin (1.5 - 5.0 %) 0.3 L O2 Concentration % 2L O2 Delivery Method NC Chemistry Sodium (137 - 145 mmol/L) 134 L Potassium (3.5 - 5.1 mmol/L) 4.6 Chloride (98 - 107 mmol/L) 97 L Carbon Dioxide (22 - 30 mmol/L) 23 Anion Gap (5 - 16) 13 BUN (7 - 17 mg/dL) 29 H Creatinine (0.5 - 1.0 mg/dL) 6.8 *H Estimated GFR (>60 ml/min) 7 L BUN/Creatinine Ratio (7 - 25 %) 4.3 L Glucose (65 - 99 mg/dL) 92 Lactic Acid (0.7 - 2.1 mmol/L) 0.7 Calcium (8.4 - 10.2 mg/dL) 8.9 Total Bilirubin (0.2 - 1.3 mg/dL) 0.5 AST (14 - 36 U/L) 18 ALT (9 - 52 U/L) 40 Alkaline Phosphatase (<127 U/L) 93 Troponin I (< 0.11 ng/ml) 0.05 [id number] Pept (<125 pg/mL) 70387 H Total Protein (6.3 - 8.2 g/dL) 6.3 Albumin (3.5 - 5.0 g/dL) 3.8 Globulin (1.9 - 4.2 gm/dL) 2.5 Albumin/Globulin Ratio (1.1 - 2.2 %) 1.5 Beta HCG, Quant (mIU/mL) < 2.4 Hematology CBC w Diff MAN DIFF ORDERED WBC (4.8 - 10.8 /CUMM) 15.0 H RBC (4.20 - 5.40 /CUMM) 3.12 L Hgb (12.0 - 16.0 G/DL) 9.5 L Hct (37 - 47 %) 28.8 L MCV (81.0 - 99.0 FL) 92.1 MCH (27.0 - 31.0 PG) 30.3 RDW (11.5 - 14.5 %) 17.1 H Plt Count (130 - 400 /CUMM) 300 MPV (7.4 - 10.4 FL) 8.4 Gran % (42.2 - 75.2 %) 95.4 H Lymphocytes % (20.5 - 51.1 %) 3.0 L Monocytes % (1.7 - 9.3 %) 0.9 L Eosinophils % (0 - 5 %) 0.7 Basophils % (0.0 - 2.0 %) 0 L Absolute Granulocytes (1.4 - 6.5 /CUMM) 14.3 H Segmented Neutrophils (42.2 - 75.2 %) 96 H Absolute Lymphocytes (1.2 - 3.4 /CUMM) 0.5 L Lymphocytes (20.5 - 51.1 %) 3 L Absolute Monocytes (0.10 - 0.60 /CUMM) 0.1 L Absolute Eosinophils (0.0 - 0.7 /CUMM) 0.1 Basophils (0.0 - 2.0 %) 1 Absolute Basophils (0.0 - 0.2 /CUMM) 0.0 Platelet Estimate (ADEQUATE) VERIFIED BY SMEAR Anisocytosis 1+ Ovalocytes FEW PUBS MCHC (33.0 - 37.0 G/DL) 32.9 L Miscellaneous Phlebotomy Draw Site RIGHT RADIAL Other Body Source Fld Total RBCs Counted (%) 100 03/03 2008 Urines Urine Color Cancelled Urine Clarity Cancelled Urine pH Cancelled Ur Specific [place] Cancelled Urine Protein Cancelled Urine Ketones Cancelled Urine Nitrite Cancelled Urine Bilirubin Cancelled Urine Urobilinogen Cancelled Ur Leukocyte Esterase Cancelled Ur Microscopic Cancelled Urine Hemoglobin Cancelled Urine Glucose Cancelled Assessment/Plan Assessment/Plan Assessment: 1. Uncontrolled HTN 2. Sepsis with gram positive bacteremia and possible IJ line infection. 3. ESRD on HD with history of prior PD 4. History of CVA 5. History of severe atherosclerotic thoracic aorta vascular disease. Recommendations: - Continue BP medication regimen with adjustments as discussed with the housestaff. - Avoid sudden decreases in BP in view of prior history of low BP induced CVA - Await final culture results. - Continue as per Nephrology and ID - Await echocardiogram - Further plans after echocardiogram available - Consideration for AARON if desired by ID Consult Acknowledgment - Thank you for your consult request.
[2017-03-04 16:00] VITALS: BP 170/90
--- NOTE | 2017-03-04 19:27 | ECHOCARDIOGRAM REPORT ---
TERI BORRERO Age: 31 : 1985 Gender: F Exam Date: 03/04/2017 16:43 Exam Location: [facility] Ht (in): 61 Wt (lb): 160 BSA: 1.79 BP: 170 / 100 Ordering Physician: MARIELA MUHAMMAD MD Referring Physician: Gudelia Mariee MD Technologist: Spring Cameron [facility] Room Number: 114 Indications: INFECTIVE ENDOCARDITIS Rhythm: Sinus Technical Quality: Fair FINDINGS Left Ventricle Normal size left ventricle. No obvious regional wall motion abnormalities. Left ventricular wall thickness severely increased. Normal left ventricular ejection fraction estimated at 60-65%. Right Ventricle Right ventricular dilatation. Right Atrium Right atrial dilatation. Left Atrium Moderate left atrial dilatation. Mitral Valve Mild thickening/calcification of the anterior mitral valve leaflet. Moderate mitral annular calcification. [id number] mitral regurgitation. Aortic Valve Trileaflet aortic valve. Diffuse thickening (sclerosis) of the aortic valve cusps without reduced excursion. No aortic stenosis. No aortic regurgitation. Tricuspid Valve Tricuspid valve not well visualized, grossly normal. Mild tricuspid regurgitation. Right ventricular systolic pressure estimated to be elevated at 66 mmHg. Pulmonic Valve Pulmonic valve not well visualized, grossly normal. Pericardium Minimal pericardial effusion (normal variant). Left pleural effusion. Great Vessels Aortic root and proximal ascending aorta not well visualized. CONCLUSIONS 1. Aortic sclerosis is present with no valvular stenosis or insufficiency. 2. Thickening and calcification of the mitral leaflets is present with moderate anular calcification and mitral insufficiency which appears to be mild to moderate in severity. Moderate left atrial enlargement is noted. 3. A very small pericardial effusion is present. 4. A moderate sized left pleural effusion is present. 5. The left ventricular chamber size is normal with severe concentric LVH and a normal ejection with diastolic dysfunction and no resting wall motion abnormalities. 6. Enlargement of the right heart chambers is noted with tricuspid insufficiency which appears to be mild in severity. Severe pulmonary hypertension is present with an estimated RV systolic pressure of at least 66 mmHg. 7. There are no obvious vegetative lesions identified. If clinically indicated, a AARON would better assess for potential vegetative lesions. Gudelia Mariee M.D. (Electronically Signed) Final Date: 04 March 2017 19:26 MEASUREMENTS (Male / Female) Normal Values 2D ECHO LV Diastolic Diameter PLAX 4.2 cm 4.2 - 5.9 / 3.9 - 5.3 cm LV Systolic Diameter PLAX 2.5 cm 2.1 - 4.0 cm LV Fractional Shortening PLAX 40.5 % 25 - 46 % LV Ejection Fraction 2D Teich 71.6 % IVS Diastolic Thickness 1.7 cm LVPW Diastolic Thickness 1.8 cm LV Relative Wall Thickness 0.8 RV Internal Dim ED PLAX 3.5 cm 1.9 - 3.8 cm LVOT Diameter 2.0 cm Aortic Root Diameter 2.8 cm LA Systolic Diameter LX 5.1 cm 3.0 - 4.0 / 2.7 - 3.8 cm LA Volume 46.0 cm 18 - 58 / 22 - 52 cm Ascending Aorta Diameter 3.1 cm DOPPLER AV Peak Velocity 213.0 cm/s AV Peak Gradient 18.1 mmHg AV Mean Velocity 136.0 cm/s AV Mean Gradient 9.0 mmHg AV Velocity Time Integral 34.1 cm LVOT Peak Velocity 143.0 cm/s LVOT Peak Gradient 8.2 mmHg LVOT Mean Velocity 110.0 cm/s LVOT Mean Gradient 5.0 mmHg LVOT Velocity Time Integral 30.8 cm LVOT Stroke Volume 96.8 cm AV Area Cont Eq vti 2.8 cm AV Area Cont Eq pk 2.1 cm MV Peak Velocity 201.0 cm/s MV Peak Gradient 16.2 mmHg MV Mean Velocity 115.0 cm/s MV Mean Gradient 7.0 mmHg Mitral E Point Velocity 182.0 cm/s Mitral A Point Velocity 151.0 cm/s Mitral E to A Ratio 1.2 MV PHT Velocity 206.0 cm/s MV Deceleration Knott 1076.0 cm/s MV Pressure Half Time 57.4 ms MV Area PHT 3.8 cm MV Deceleration Time 312.0 ms TR Peak Velocity 410.0 cm/s TR Peak Gradient 67.2 mmHg Right Atrial Pressure 5.0 mmHg Pulmonary Artery Systolic Pressu 72.2 mmHg Right Ventricular Systolic Press 72.2 mmHg PV Peak Velocity 181.5 cm/s PV Peak Gradient 13.2 mmHg PV Mean Velocity 128.0 cm/s PV Mean Gradient 7.5 mmHg PV Velocity Time Integral 37.1 cm LV E' Lateral Velocity 8.4 cm/s Mitral E to LV E' Lateral Ratio 21.8 LV E' Septal Velocity 6.1 cm/s Mitral E to LV E' Septal Ratio 29.7
[2017-03-04 20:13] VITALS: BP 162/94
--- NOTE | 2017-03-04 20:28 | ULTRASOUND REPORT ---
EXAMINATION: US TRIPLEX UPPER EXTREMITY, LEFT CLINICAL INFORMATION: Left upper extremity swelling. The patient was reportedly diagnosed with thrombus within the left internal jugular vein at an outside hospital, 2 weeks ago. COMPARISON: None. TECHNIQUE: Color-flow triplex imaging with spectral analysis and compression Doppler were performed on the upper extremity. FINDINGS: Multiple grayscale and Doppler images of the left upper extremity veins demonstrate an echogenic mobile thrombus within the left internal jugular vein measuring approximately 0.8 x 2.4 cm in AP and sagittal dimensions respectively. The left subclavian, axillary, brachial, basilic and cephalic veins are patent and compressible, without evidence of deep venous thrombosis. IMPRESSION: Deep venous thrombosis of the left upper extremity, with a 0.8 x 2.4 cm mobile echogenic thrombus identified along the periphery of the left internal jugular vein. The patient reportedly had an ultrasound of the left upper extremity 2 weeks ago at an outside hospital which also demonstrated thrombus within the left internal jugular vein. However, images from that exam are not available for comparison. The remaining imaged veins of the left upper extremity are patent. This critical result was discussed with Dr. Johnson at 8:24 PM on 03/04/2017 and it was ascertained that the content and urgency of the report was understood at the time of direct communication.
--- NOTE | 2017-03-04 20:54 | NUR ---
REGARDING [place] NURSING NOTE-PERITONEAL DIALYSIS EXCHANGE- PER ALBERTO RN, ON HOLD AT THIS POINT, ORDER FROM ID, [employer] DEANNA RANDALL HAS CALL INTO DR DAVIS, DOES NOT WANT TO DO THIS WITHOUT HIS OK. PATIENT IS HESITANT ALSO. TO BE RESOLVED IN AM.
--- NOTE | 2017-03-04 22:29 | NUR ---
LATE ENTRY: PT ARRIVED TO FLOOR AT 2004, TSF FROM ICU, DX FEVER VS 99.8 75 18 162/94 100% 3L O2, +MRSA; DAILY WEIGHT A&O; INDEPENDENT; EDEMA TO LUE; AND JAQUELIN FEET +1; HD PATIENT, DOES NOT VOID, PERITONEAL CATHETER IN PLACE-NOT USINIG, RIJ ASHLEY CATH. UPGRADED TO RENAL DIET. HD TODAY (T,TH,WED) IV #20 TO , CURRENTLY VANCO RUNNING ORIENTED TO ROOM AND CALL VANCE. SAFETY MAINTAINED, ALL NEEDS WITHIN REACH.
--- NOTE | 2017-03-04 22:38 | NUR ---
VANCO ORDERED FOR 1700, SHOULD HAVE BEEN GIVEN IN DIALYSIS, WAS NOT. CHECKED WITH PHARMACY, MIXED AT APPROX 1400. JAVA DEVELOPER WITH SECURITY CLEARANCE (DELFINO) DID NOT GIVE AND NOT KNOWN IF TOPPIECE CHOPPER GAVE. NOTATIONS ON HD CHARTING SHOWED NO MEDS GIVEN. IV VANCO WAS GIVEN TO PATIENT LATE AT APPROX 2130.
[2017-03-05 05:40] VITALS: BP 198/98
--- NOTE | 2017-03-05 05:42 | NUR ---
NURSING NOTE: PATIENTS BP 198/98 AT THIS TIME, ALL OTHER VSS. NO ACUTE DISRESS, A&OX3, C/O PAIN 05/06. MS JEFF 108 MADE AWARE. PT REFUSING VICODIN AND STATES "IT DOES NOT WORK FOR ME." PER MD AGUILAR, GIVE PRN DILAUDID PER EMAR EARLY AT THIS TIME. RECHECK BP IN 30 MINUTES. IF BP DOES NOT DECREASE, GIVE SCHEDULED HYDRALAZINE. WILL CONTINUE TO MONITOR.
[2017-03-05 06:17] VITALS: BP 190/90
--- NOTE | 2017-03-05 07:08 | PN- Housestaff ---
BRAIN COTA,APURVA 03/05/17 0708: Subjective Follow-up For: ESRD on HD Sepsis Uncontrolled HTN Subjective: Patient seen and examined this AM. She reports she feels lethargic and sleepy. She denies feeling feverish and denies pain at site of right IJ cathter. Patient is amenable to HD this AM. It was suggested that right IJ cath be removed today as it may be source of her infection, however patient will hold off at this time until she can discuss this with her outpatient mapping editor Dr. Yaya MD. I have called him myself and was unable to get a hold of him. Review of Systems Constitutional: Reports: malaise. Denies: chills, fever. EENTM: Denies: blurred vision, visual changes, hearing changes, nasal congestion. Cardiovascular: Denies: chest pain, palpitations. Respiratory: Denies: cough, short of breath. Gastrointestinal: Denies: abdominal pain, nausea. Musculoskeletal: Denies: neck pain. Skin: Denies: jaundice, rash. Neurological/Psychological: Denies: confusion, numbness. Hematologic/Endocrine: Denies: bruising, bleeding. Objective Last 24 Hrs of Vital Signs/I&O Vital Signs Date Time Temp Pulse Resp B/P B/P Pulse O2 O2 Flow FiO2 Mean Ox Delivery Rate 03/05 1630 190/100 03/05 1456 84 184/100 03/05 1439 84 183/100 100 Nasal 3.0L Cannula 03/05 1333 84 178/80 03/05 1333 84 178/80 03/05 1308 99.0 84 20 178/80 97 Nasal 3.0L Cannula 03/05 0807 96 Nasal 3.0L Cannula 03/05 0807 99.1 80 20 166/80 96 Nasal 3.0L Cannula 03/05 0623 81 190/90 03/05 0619 99.1 20 94 Nasal 3.0L Cannula 03/05 0617 92 190/90 03/05 0540 81 198/98 03/05 0000 100 Nasal 3.0L Cannula 03/04 2135 75 162/94 03/04 2013 99.8 77 20 162/94 100 Nasal 3.0L Cannula 03/04 1821 99.6 03/04 1736 102.5 03/04 1735 102.5 88 18 170/90 03/04 1734 102.5 88 18 170/90 Intake & Output 03/05 1600 03/05 0800 03/05 0000 Intake Total 490 550 610 Output Total 0 0 Balance 490 550 610 Intake, IV 40 70 250 Intake, Oral 450 480 360 Number 0 0 Bowel Movements Output, Urine 0 0 Patient 158 lb 164 lb Weight Weight Standing Scale Standing Scale Measurement Method Physical Exam General Appearance: Alert, Oriented X3, Cooperative, No Acute Distress Skin: No Significant Lesion, Suture in neck slightly erythematous, however no current sign of infection, may be irritation HEENT: Atraumatic, PERRLA, EOMI, Mucous Membr. moist/pink Neck: Supple Lymphatic: Cervical nl Cardiovascular: Regular Rate, Normal S1, Normal S2 Lungs: Normal Air Movement Abdomen: Normal Bowel Sounds, Soft, No Tenderness, PDC in place without signs of erythema or infection Neurological: Normal Speech, Normal Tone Extremities: No Clubbing, No Cyanosis, Bilateral pedal edema as well as upper extremity edema (Left) Vascular: Pulses Symmetrical Current Medications: Current Medications Sig/Bryan Start time Last Medication Dose Route Stop Time Status Admin Acetaminophen 1,000 MG ONCE ONE 03/04 1730 DC 03/04 N/A 1 UNIT IV 03/04 1744 1736 Acetaminophen 650 MG Q6P PRN 03/04 0115 AC PO Acetaminophen/ 1 TAB Q6P PRN 03/04 0115 AC Hydrocodone Bitart PO Alprazolam 0.5 MG DAILY NEEDED PRN 03/04 0145 AC 03/05 PO 03/11 0144 0145 Amlodipine Besylate 10 MG DAILY 03/04 1015 AC 03/05 PO 1456 Apixaban 5 MG BID 03/04 0134 DC 03/04 PO 2135 Calcium 600 MG BID 03/04 1000 AC 03/05 PO 1333 Clonidine 3 PAT ONCE A WEEK 03/05 1115 AC 03/05 TOP 1333 Clonidine 2 PAT Q168 03/04 1057 DC 03/04 TOP 1105 Heparin Sodium 25,000 UNIT Q24H 03/05 1330 AC (Porcine) IV Sodium Chloride 500 ML Hydralazine HCl 100 MG TID 03/04 1045 AC 03/05 PO 1630 Hydromorphone HCl 0.4 MG ONCE ONE 03/05 1500 DC 03/05 IV 03/05 1501 1506 Hydromorphone HCl 0.6 MG ONCE ONE 03/04 1815 DC 03/04 IV 03/04 1816 1829 Hydromorphone HCl 0.5 MG Q6-PRN PRN 03/04 0500 AC 03/05 IV 1333 Labetalol HCl 200 MG BID 03/05 2200 AC PO Labetalol HCl 100 MG ONCE ONE 03/05 1700 DC PO 03/05 1701 Losartan Potassium 100 MG DAILY 03/04 1045 AC 03/05 PO 1333 Mupirocin 1 UDAY TIDPRN PRN 03/04 0145 AC TOP Omeprazole 20 MG 0700,1600 03/04 0700 AC 03/05 PO 1629 Ondansetron HCl 4 MG .STK-MED ONE 03/05 0558 DC IM 03/05 0559 Ondansetron HCl 4 MG Q6P PRN 03/04 1015 AC 03/05 IV 0559 Patient Medication 1 ED .STK-MED ONE 03/05 1351 DC Teaching ED 03/05 1352 Vancomycin HCl 250 MG ONCE ONE 03/05 1515 DC Sodium Chloride 100 ML IV 03/05 1544 Vancomycin HCl See Dose MoWeFr PRN 03/05 1500 AC Insts (1) IV Vancomycin HCl 750 MG ONCE ONE 03/04 1700 DC 03/04 Sodium Chloride 250 ML IV 03/04 1759 2136 Vancomycin HCl See Dose TuThSa PRN 03/04 1215 DC Insts (2) IV Dose Instructions: (1)Vancomycin HCl: DOSE BASED ON RANDOM VANCO LEVELS ON DIALYSIS DAYS (2)Vancomycin HCl: DOSE BASED ON RANDOM VANCO LEVELS ON DIALYSIS DAYS Last 24 Hrs of Lab/Ashwin Results Last 24 Hrs of Labs/Mics: Laboratory Tests 03/05/17 0630: Anion Gap 10, Estimated GFR 11 L, BUN/Creatinine Ratio 4.1 L, CBC w Diff NO MAN DIFF REQ, RBC 2.78 L, MCV 92.5, MCH 30.0, RDW 16.6 H, MPV 8.6, Gran % 89.8 H, Lymphocytes % 4.7 L, Monocytes % 4.1, Eosinophils % 1.3, Basophils % 0.1, Absolute Granulocytes 12.9 H, Absolute Lymphocytes 0.7 L, Absolute Monocytes 0.6, Absolute Eosinophils 0.2, Absolute Basophils 0, PUBS MCHC 32.4 L, Random Vancomycin 21.3 Microbiology 03/05 154 BLOOD: Blood Culture - COLB 03/05 1548 BLOOD: Blood Culture - COLB 03/04 1800 BLOOD: Blood Culture - CAN Cancelled: Quantity not sufficient for both blood culture bottles. 03/04 1800 BLOOD: Blood Culture - CAN Cancelled: Quantity not sufficient for both blood culture bottles. Assessment/Plan Assessment: Ms. Wilson is a 31 y/o F with PMHx of ESRD on HD, resistant HTN with multiple hospitalizations for hypertensive urgency and previous ischemic and hemorrhagic strokes with residual minimal left-sided weakness and dysarthria who presents with fever and chills. #Sepsis: Patient met SIRS criteria for sepsis on admission with fever to 102.6 and leukocytosis with WBC count of 15.0. Etiology is unclear although most likely source is the RIJ catheter with erythema and tenderness at the site. Pneumonia is unlikely in the absence of respiratory symptoms and consolidation on CXR. Patient is anuric at baseline thus urinary source can be ruled out. S/p 1 dose of vancomycin and ceftazidime in the ED. History of MRSA sepsis attributed to an infected port-a-cath in September 2014 treated at [facility]. * ID & nephro consult appreciated, suggested removing HD catheter, though patient not amenable at this time * Will hold eliquis and start patient on heparin gtt at this time in anticipation of possible HD catheter soon * Consider AARON pending BC * Follow up final BCx and sputum Cx (repeat BC x 2 today) * Continue vancomycin for now (per dialysis protocol), tailor once micro finalized * Culture the tip of the Eloisa cath at RIJ site upon removal #ESRD on HD: Switched from peritoneal dialysis to HD one month ago due to noncompliance issues. * Nephrology consulted. Appreciate their recs. * Continue HD per nephro. #Resistant HTN: Multiple hospitalizations for hypertensive urgency felt to be 2/ 2 medication and dialysis noncompliance. Follows with chief strategy officer Dr. Mariee. Otasd-wz-aegvkngqm meds include amlodipine 10 mg PO daily, clonidine patch, hydralazine 100 mg PO TID, labetalol 300 mg PO BID and losartan 100 mg PO daily. BP was elevated to 220/1220 on initial presentation but later came down to 120/ 70. Rapid drop in BP is concerning for impending septic shock. CT Head with no acute intracranial findings. Most recent ECHO in January 2017 with normal LVEF estimated at 65-70% and severe concentric hypertrophy with diastolic dysfunction. * Cardiology consult appreciated * Suggested increasing clonidine patch to TTS-3 * Allanti-hypertensives resumed, though labetolol is currently at a lower dose than home medication. 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 * Eliquis is on hold in the setting of possible surgical intervention * Continue heparin drip per protocol, discontinue few hours before procedure #Duodenitis/gastritis: * Continue jjpmw-xh-kiovyjpor omeprazole 20 mg PO BID. #Anxiety: * Continue ihtem-fd-jzlcomfcp Xanax 0.5 mg PO daily PRN. Diet: Renal dialysis DVT PPx: Heparin and ALPs CODE: FULL Problem List: 1. HTN (hypertension) 2. Sepsis 3. ESRD on hemodialysis 4. CKD (chronic kidney disease) 5. Uncontrolled hypertension Pain Ratin Pain Location: n/a Pain Goal: Remain pain free Pain Plan: Dilaudid for severe pain Tomorrow's Labs & Rationales: CBC (leukocytosis) BEP (hyponatremia, CKD) MARI COTA,[facility] 03/05/17 1507: Attending MD Review Statement Attending Statement Attending MD Statement: examined this patient, discuss w/resident/PA/EDUCATIONAL AID, agreed w/resident/PA/EDUCATIONAL AID, reviewed EMR data (avail), discussed with nursing, discussed with case mgmt, reviewed images, amended to note Attending Assessment/Plan: Patient seen and examined, not feeling to well. Just came back from dialysis and feels tired. Vital Signs Date Time Temp Pulse Resp B/P B/P Pulse O2 O2 Flow FiO2 Mean Ox Delivery Rate 03/05 1456 84 184/100 03/05 1439 84 183/100 100 Nasal 3.0L Cannula 03/05 1333 84 178/80 03/05 1333 84 178/80 03/05 1308 99.0 84 20 178/80 97 Nasal 3.0L Cannula 03/05 0807 96 Nasal 3.0L Cannula 03/05 0807 99.1 80 20 166/80 96 Nasal 3.0L Cannula 03/05 0623 81 190/90 03/05 0619 99.1 20 94 Nasal 3.0L Cannula 03/05 0617 92 190/90 03/05 0540 81 198/98 03/05 0000 100 Nasal 3.0L Cannula 03/04 2135 75 162/94 03/04 2013 99.8 77 20 162/94 100 Nasal 3.0L Cannula 03/04 1821 99.6 03/04 1736 102.5 08 1735 102.5 88 18 170/90 03/04 1734 102.5 88 18 170/90 03/04 1600 95 Nasal 3.0L Cannula 03/04 1600 100.3 84 18 / 95 Nasal 3.0L Cannula on exam; aox3, nad. cv; s1,s2, rrr, + eloisa cath Right IJ resp; clear abd; soft, nt, bs+, + Peritneal dialysis cath ext; no edema. Laboratory Tests 03/05 630 Chemistry Sodium (137 - 145 mmol/L) 135 L Potassium (3.5 - 5.1 mmol/L) 4.3 Chloride (98 - 107 mmol/L) 98 Carbon Dioxide (22 - 30 mmol/L) 27 Anion Gap (5 - 16) 10 BUN (7 - 17 mg/dL) 19 H Creatinine (0.5 - 1.0 mg/dL) 4.6 H Estimated GFR (>60 ml/min) 11 L BUN/Creatinine Ratio (7 - 25 %) 4.1 L Hematology CBC w Diff NO MAN DIFF REQ WBC (4.8 - 10.8 /CUMM) 14.4 H RBC (4.20 - 5.40 /CUMM) 2.78 L Hgb (12.0 - 16.0 G/DL) 8.3 L Hct (37 - 47 %) 25.7 L MCV (81.0 - 99.0 FL) 92.5 MCH (27.0 - 31.0 PG) 30.0 RDW (11.5 - 14.5 %) 16.6 H Plt Count (130 - 400 /CUMM) 247 MPV (7.4 - 10.4 FL) 8.6 Gran % (42.2 - 75.2 %) 89.8 H Lymphocytes % (20.5 - 51.1 %) 4.7 L Monocytes % (1.7 - 9.3 %) 4.1 Eosinophils % (0 - 5 %) 1.3 Basophils % (0.0 - 2.0 %) 0.1 Absolute Granulocytes (1.4 - 6.5 /CUMM) 12.9 H Absolute Lymphocytes (1.2 - 3.4 /CUMM) 0.7 L Absolute Monocytes (0.10 - 0.60 /CUMM) 0.6 Absolute Eosinophils (0.0 - 0.7 /CUMM) 0.2 Absolute Basophils (0.0 - 0.2 /CUMM) 0 PUBS MCHC (33.0 - 37.0 G/DL) 32.4 L Toxicology Random Vancomycin (ug/ml) 21.3 A/P; 31 y/o F with PMHx of ESRD on HD, resistant HTN with multiple hospitalizations for hypertensive urgency and previous ischemic and hemorrhagic strokes with residual minimal left-sided weakness and dysarthria who presents with fever and chills, admitted with sepsis with fever to 102.6 and leukocytosis with WBC count of 15.0 and bacteremic with GPC in cluters. Source could be possibly ashcath. ID and nephrology recommends to remove it. Patient was on eliquis and last dose was given yesterday for unfortunately cannot go for this procedure today. Today she will be started on hep gtt and eliquis will be discontinued. As he is on today she will be started on heparin drip and her Elquis will be discontineud. She is not willing to have it removed. Currently on vanco. HD per nephro. DVT Px; Hep gtt. Please follow recommendations from all the consultants.
[2017-03-05 08:07] VITALS: BP 166/80
--- NOTE | 2017-03-05 08:10 | NUR ---
NURSING NOTE: ASSUMED CARE OF PT, PT LEFT FLOOR VIA BED WITH DISTRIBUTION FOR DIALYSIS. PT AWAKE, A/OX3, VITALS OBTAINED AND DOCUEMNTED, BP 166/80 PT DENIES NEED FOR PAIN MEDS AT THIS TIME. 3L NC, DENIES DISTRESS. IV TO RFA PATENT, HX L ARM DVT FROM 2 WEEKS AGO PER PT, PINK DO NOT USE WRIST BAND PLACED; SIGN IN PLACE OVER BED. HX MRSA, RIJ ASHLEY CATH INTACT; DSG CHANGED YESTERDAY; SLIGHT REDNESS NOTED TO STITCH; IV TO RFA INTACT;BIOPATCH IN PLACE. GENERALIZED EDEMA BUT +1 TO LEFT ARM, DRY SKIN TO FEET, DOES NOT VOID PER PT. AM WEIGHT RECORDED REPORT GIVEN TO CURTAIN STRETCHER ASSEMBLER, PER NARESH RN ? OF RIJ ASHLEY CATH BEING DCD TODAY. AWAIT RETURN TO FLOOR AFTER DILAYSIS. TICKET TO RIDE COMPLETE, CHART WITH PT.
[2017-03-05 08:17] LABS: ABSOLUTE BASOPHIL COUNT 0 /CUMM (0.0-0.2); ABSOLUTE EOSINOPHIL COUNT 0.2 /CUMM (0.0-0.7); ABSOLUTE GRANULOCYTE CT 12.9 /CUMM (1.4-6.5); ABSOLUTE LYMPH COUNT 0.7 /CUMM (1.2-3.4); ABSOLUTE MONOCYTE COUNT 0.6 /CUMM (0.10-0.60); BASOPHIL % 0.1 % (0.0-2.0); EOSINOPHIL % 1.3 % (0-5); HEMATOCRIT 25.7 % (37-47); MEAN CORPUSCULAR HGB CONC 32.4 G/DL (33.0-37.0); MEAN CORPUSCULAR VOLUME 92.5 FL (81.0-99.0); MEAN PLATELET VOLUME 8.6 FL (7.4-10.4); PLATELET COUNT 247 /CUMM (130-400); RBC DISTRIBUTION WIDTH 16.6 % (11.5-14.5); RED BLOOD CELL CT 2.78 /CUMM (4.20-5.40); WHITE BLOOD CELL COUNT 14.4 /CUMM (4.8-10.8)
[2017-03-05 08:54] LABS: GRANULOCYTE % 89.8 % (42.2-75.2)
--- NOTE | 2017-03-05 09:17 | PN- Cardiology ---
Subjective Subjective: The patient is seen on dialysis. She complains of fatigue and weakness. No chest pain. Positive nausea. No lightheadedness or dizziness. No shortness of breath. Objective Vital Signs and I&Os Vital Signs Date Time Temp Pulse Resp B/P B/P Pulse O2 O2 Flow FiO2 Mean Ox Delivery Rate 03/05 807 96 Nasal 3.0L Cannula 03/05 0807 99.1 80 20 166/80 96 Nasal 3.0L Cannula 03/05 0623 81 190/90 03/05 0619 99.1 20 94 Nasal 3.0L Cannula 03/05 0617 92 190/90 03/05 0540 81 198/98 03/05 0000 100 Nasal 3.0L Cannula 03/04 2135 75 162/94 03/04 2013 99.8 77 20 162/94 100 Nasal 3.0L Cannula 03/04 1821 99.6 03/04 1736 102.5 03/04 1735 102.5 88 18 170/90 08 1734 102.5 88 18 170/90 08 1600 95 Nasal 3.0L Cannula 03/04 1600 100.3 84 18 170/90 95 Nasal 3.0L Cannula 03/04 1229 100.3 /08 1224 80 206/90 /08 1105 80 218/110 08 0930 Nasal 2.0L Cannula 03/04 0930 100.3 84 24 218/100 93 Nasal 3.0L Cannula Intake & Output 03/05 1600 /09 0800 06/09 0000 06/08 1600 /08 0800 06/08 0000 Intake Total 550 610 240 Output Total 0 0 Balance 550 610 240 0 Intake, IV 70 250 Intake, Oral 480 360 240 Number 0 Bowel Movements Output, Stool 0 Output, Urine 0 0 Patient 164 lb 161 lb 150 lb Weight Weight Standing Scale Bed scale Reported by Patient Measurement Method Physical Exam: Gen: The patient is in no acute distress HEENT: Normal nose, ears, and oropharynx. Pupils equal bilaterally. Conjunctiva normal. Neck: Supple with no JVD, no masses, and no thyromegaly Lungs: Decreased breath sounds with normal respiratory effort Heart: RRR, S1, S2, no murmurs. 1+ peripheral edema, 1+ pulses in the lower extremities bilaterally Abdomen: Soft, nontender, no masses. No hepatomegaly. No splenomegaly Extremities: No clubbing or cyanosis. Normal muscle strength in the upper and lower extremities Skin: Normal skin turgor with no skin ulcers or lesions noted. Neuro: Cranial nerves intact. Sensation intact Current Medications: Current Medications Sig/Bryan Start time Last Medication Dose Route Stop Time Status Admin Acetaminophen 1,000 MG ONCE ONE 03/04 1730 DC 03/04 N/A 1 UNIT IV 03/04 1744 1736 Acetaminophen 650 MG Q6P PRN 03/04 0115 AC PO Acetaminophen/ 1 TAB Q6P PRN 03/04 0115 AC Hydrocodone Bitart PO Alprazolam 0.5 MG DAILY NEEDED PRN 03/04 0145 AC 03/05 PO 03/11 0144 0145 Amlodipine Besylate 10 MG DAILY 03/04 1015 AC 03/04 PO 1735 Apixaban 5 MG BID 03/04 0134 AC 03/04 PO 2135 Calcium 600 MG BID 03/04 1000 AC 03/04 PO 2135 Clonidine 2 PAT Q168 03/04 1057 AC 03/04 TOP 1105 Clonidine 2 PAT Q168H 03/04 1015 CAN TOP Hydralazine HCl 100 MG TID 03/04 1045 AC 03/05 PO 0623 Hydromorphone HCl 0.6 MG ONCE ONE 03/04 1815 DC 03/04 IV 03/04 1816 1829 Hydromorphone HCl 0.5 MG Q6-PRN PRN 03/04 0500 03/05 IV 0551 Losartan Potassium 100 MG DAILY 03/04 1045 AC 03/04 PO 1106 Mupirocin 1 UDAY TIDPRN PRN 03/04 0145 AC TOP Omeprazole 20 MG 0700,1600 /08 0700 03/05 PO 0551 Ondansetron HCl 4 MG Q6P PRN 03/04 1015 03/05 IV 0559 Vancomycin HCl 750 MG ONCE ONE 03/04 1700 DC 08 Sodium Chloride 250 ML IV 03/04 1759 2136 Vancomycin HCl 1,000 MG ONE ONE 03/04 1300 CAN Sodium Chloride 250 ML IV 03/04 1359 Vancomycin HCl See Dose TuThSa PRN 03/04 1215 AC Insts (1) IV Dose Instructions: (1)Vancomycin HCl: DOSE BASED ON RANDOM VANCO LEVELS ON DIALYSIS DAYS Results Last 48 Hrs of Labs/Mics: Laboratory Tests 03/05/17 0630: Anion Gap 10, Estimated GFR 11 L, BUN/Creatinine Ratio 4.1 L, CBC w Diff NO MAN DIFF REQ, RBC 2.78 L, MCV 92.5, MCH 30.0, RDW 16.6 H, MPV 8.6, Gran % 89.8 H, Lymphocytes % 4.7 L, Monocytes % 4.1, Eosinophils % 1.3, Basophils % 0.1, Absolute Granulocytes 12.9 H, Absolute Lymphocytes 0.7 L, Absolute Monocytes 0.6, Absolute Eosinophils 0.2, Absolute Basophils 0, PUBS MCHC 32.4 L 03/04/17 1230: Anion Gap 12, Estimated GFR 6 L, BUN/Creatinine Ratio 5.1 L, Glucose 69, Calcium 8.7, Phosphorus 4.8 H, Magnesium 1.9, Albumin 3.2 L, CBC w Diff MAN DIFF ORDERED, RBC 2.74 L, MCV 92.1, MCH 30.0, RDW 16.9 H, MPV 8.5, Gran % 96.9 H, Lymphocytes % 1.3 L, Monocytes % 1.6 L, Eosinophils % 0.2, Basophils % 0 L, Absolute Granulocytes 21.3 H, Segmented Neutrophils 91 H, Band Neutrophils 5, Absolute Lymphocytes 0.3 L, Lymphocytes 1 L, Monocytes 3, Absolute Monocytes 0.3, Absolute Eosinophils 0.1, Absolute Basophils 0, Platelet Estimate ADEQUATE, Normocytic RBCs VERIFIED, Normochromic RBCs VERIFIED, PUBS MCHC 32.5 L, Random Vancomycin 16.9 03/04/17 1206: Random Vancomycin Cancelled 03/04/17 0545: CBC w Diff MAN DIFF ORDERED, RBC 2.62 L, MCV 92.7, MCH 30.5, RDW 16.7 H, MPV 8.5, Gran % 94.9 H, Lymphocytes % 2.9 L, Monocytes % 2.2, Eosinophils % 0, Basophils % 0 L, Absolute Granulocytes 22.0 H, Segmented Neutrophils 75, Band Neutrophils 22 H, Absolute Lymphocytes 0.7 L, Lymphocytes 2 L, Monocytes 1 L , Absolute Monocytes 0.5, Absolute Eosinophils 0, Absolute Basophils 0, Anisocytosis 1+, PUBS MCHC 32.9 L 03/03/17 2308: Lactic Acid Cancelled 03/03/17 2145: pH 7.47 H, pCO2 34 L, pO2 78 L, HCO3 24, ABG O2 Sat (Measured) 96.0, Carboxyhemoglobin 0.3 L, O2 Concentration % 2L, O2 Delivery Method NC, Phlebotomy Draw Site RIGHT RADIAL 03/03/172010: Anion Gap 13, Estimated GFR 7 L, BUN/Creatinine Ratio 4.3 L, Glucose 92, Lactic Acid 0.7, Calcium 8.9, Total Bilirubin 0.5, AST 18, ALT 40, Alkaline Phosphatase 93, Troponin I 0.05, [id number] Pept 51312 H, Total Protein 6.3, Albumin 3.8, Globulin 2.5, Albumin/Globulin Ratio 1.5, Beta HCG, Quant < 2.4, CBC w Diff MAN DIFF ORDERED, RBC 3.12 L, MCV 92.1, MCH 30.3, RDW 17.1 H, MPV 8.4, Gran % 95.4 H, Lymphocytes % 3.0 L, Monocytes % 0.9 L, Eosinophils % 0.7, Basophils % 0 L, Absolute Granulocytes 14.3 H, Segmented Neutrophils 96 H, Absolute Lymphocytes 0.5 L, Lymphocytes 3 L, Absolute Monocytes 0.1 L, Absolute Eosinophils 0.1, Basophils 1, Absolute Basophils 0.0, Platelet Estimate VERIFIED BY SMEAR, Anisocytosis 1+, Ovalocytes FEW, PUBS MCHC 32.9 L, Fld Total RBCs Counted 100 03/03/172007: Urine Color Cancelled, Urine Clarity Cancelled, Urine pH Cancelled, Ur Specific [place] Cancelled, Urine Protein Cancelled, Urine Ketones Cancelled, Urine Nitrite Cancelled, Urine Bilirubin Cancelled, Urine Urobilinogen Cancelled, Ur Leukocyte Esterase Cancelled, Ur Microscopic Cancelled, Urine Hemoglobin Cancelled, Urine Glucose Cancelled Recent Imaging Studies: Left lower extremity venous Doppler: Deep venous thrombosis of the left upper extremity, with a 0.8 x 2.4 cm mobile echogenic thrombus identified along the periphery of the left internal jugular vein. The patient reportedly had an ultrasound of the left upper extremity 2 weeks ago at an outside hospital which also demonstrated thrombus within the left internal jugular vein. However, images from that exam are not available for comparison. The remaining imaged veins of the left upper extremity are patent. Echocardiogram 03/04/17: 1. Aortic sclerosis is present with no valvular stenosis or insufficiency. 2. Thickening and calcification of the mitral leaflets is present with moderate anular calcification and mitral insufficiency which appears to be mild to moderate in severity. Moderate left atrial enlargement is noted. 3. A very small pericardial effusion is present. 4. A moderate sized left pleural effusion is present. 5. The left ventricular chamber size is normal with severe concentric LVH and a normal ejection with diastolic dysfunction and no resting wall motion abnormalities. 6. Enlargement of the right heart chambers is noted with tricuspid insufficiency which appears to be mild in severity. Severe pulmonary hypertension is present with an estimated RV systolic pressure of at least 66 mmHg. 7. There are no obvious vegetative lesions identified. If clinically indicated, a AARON would better assess for potential vegetative lesions. Assessment/Plan Assessment/Plan Assessment: 1. Hypertension, not fully controlled 2. Sepsis with gram positive bacteremia and possible IJ line infection. 3. ESRD on HD with history of prior PD 4. History of CVA 5. History of severe atherosclerotic thoracic aorta vascular disease. 6. Left internal jugular vein thrombosis 7. No vegetation seen on transthoracic echo Plan: * Continue antibiotics as per ID * Awaiting final identification of positive blood culture * Possible AARON next week if recommended by ID * Would increase clonidine patch to TTS-3, 1 patch weekly for additional blood pressure control Continue telemetry? Not applicable
--- NOTE | 2017-03-05 12:30 | PN- Nephrology ---
Assessment/Plan Assessment: Postive BC likely line sepsis. On dialysis now. WOuld D/C ASHLEY after dialysis today. Follow BC over weekend. tentatively would replace ASHLEY Wednesday as long as fever, WBC improved. If not we could try to use temporary PD but in the past she absorbs the fluid and tends to retain it so this would not be optimal. Suggestion: . Subjective Subjective: Pt feels better. BC Pos GPC Objective Vital Signs and I&Os F NAD 166/80 80 99.1 Lungs clear Cor RRR Chest some tenderness on ASHLEY tract in neck no fluid WBC Abd soft Ext neg edema Results Pertinent Lab Results: K 4.3 BC x 2 Staph species
[2017-03-05 13:08] VITALS: BP 178/80
--- NOTE | 2017-03-05 13:08 | NUR ---
NURSING NOTE: PT BACK TO FLOOR VIA BED WITH DISTRIBUTION FROM DIALYSIS., POST DIALYSIS WEIGHT OBTAINED. VITALS OBTAINED, BP 178/80. HR 84. WILL MEDICATE FOR PAIN. APURVA MOBILITY ARCHITECT CALLED ABOUT VITALS; GIVEN CATAPRESS PATCHES AND LOSARTAN AT THIS TIME BUT RECHECK BP AT 1430PM BEFORE GIVING NORVASC. NEEDS IN REACH.
--- NOTE | 2017-03-05 14:14 | NUR ---
NURSING NOTE: ELOQUIS DCD BY CAR EXAMINER;HEPARIN GTT ORDERED BY CAR EXAMINER PENDING HAVING THE RIJ DILAYSIS ASHLEY CATH REMOVED. PT ASKING TO SPEAK WITH CAR EXAMINER REGARDING "I DONT THINK MY ASHLEY CATH IS INFECTED, LAST TIME THE LEFT IJ ASHLEY CATH WAS INFECTED IT WAS PUSSY AND VERY PAINFUL." PT REQUESTING TO HAVE HER DR HORNER CALLED BY CAR EXAMINER, NUMBER GIVEN TO APURVA CAR EXAMINER, PT REQUESTING FOR HEPARIN GTT TO BE STARTED AFTER HER NEPHROOLGIST IS CALLED. PT REFUSING ALPS; APURVA CAR EXAMINER AWARE. NEEDS IN REACH, SAFTEY MAINTAINED.
[2017-03-05 14:39] VITALS: BP 183/100
--- NOTE | 2017-03-05 14:56 | NUR ---
NURSING NOTE: BP 182/100, HR 84. APURVA COTA AWARE, NORVASC GIVEN, PT C/O /10 PAIN TO LEFT CHEST IJ SITE. APURVA MANAGER SEARCH ENGINE AWARE AND TO ORDER IV DILAUDID ONE TIME DOSE, NORVASC GIVEN, RECHECK BP IN 1 HOUR PER MANAGER SEARCH ENGINE, WILL GIVE REPORT TO NEXT SHIFT RN. NEEDS IN REACH, PT TO RECEIVE IV VANCO BEFORE STARTING HEPARIN GTT.
--- NOTE | 2017-03-05 15:11 | PN- Infect Dx ---
Subjective Subjective: MAXIMUM TEMPERATURE 102.5. She feels somewhat better but does complain of fatigue. Objective Last 24 Hrs of Vital Signs/I&O Vital Signs Date Time Temp Pulse Resp B/P B/P Pulse O2 O2 Flow FiO2 Mean Ox Delivery Rate 03/05 1456 84 184/100 03/05 1439 84 183/100 100 Nasal 3.0L Cannula 03/05 1333 84 178/80 03/05 1333 84 178/80 03/05 1308 99.0 84 20 178/80 97 Nasal 3.0L Cannula 03/05 0807 96 Nasal 3.0L Cannula 03/05 0807 99.1 80 20 166/80 96 Nasal 3.0L Cannula 03/05 0623 81 190/90 03/05 0619 99.1 20 94 Nasal 3.0L Cannula 03/05 0617 92 190/90 03/05 0540 81 198/98 03/05 0000 100 Nasal 3.0L Cannula 03/04 2135 75 162/94 03/04 2013 99.8 77 20 162/94 100 Nasal 3.0L Cannula 03/04 1821 99.6 03/04 1736 102.5 03/04 1735 102.5 88 18 170/90 08 1734 102.5 88 18 170/90 08 1600 95 Nasal 3.0L Cannula 03/04 1600 100.3 84 18 170/ 95 Nasal 3.0L Cannula Intake & Output 03/05 1600 03/05 0800 03/05 0000 Intake Total 550 610 Output Total 0 Balance 550 610 Intake, IV 70 250 Intake, Oral 480 360 Number 0 Bowel Movements Output, Urine 0 Patient 158 lb 164 lb Weight Weight Standing Scale Standing Scale Measurement Method Physical Exam Other Physical Findings: She appears lethargic but easily arousable and in no acute distress Neck right IJ Glenroy catheter with minimal tenderness on palpation Lungs are clear Heart regular rhythm with a 2/6 systolic ejection murmur Abdomen is soft, nontender with positive bowel sounds Extremities no cyanosis, clubbing or edema Results Last 24 Hours of Lab Results: Laboratory Tests 03/05 0630 Chemistry Sodium (137 - 145 mmol/L) 135 L Potassium (3.5 - 5.1 mmol/L) 4.3 Chloride (98 - 107 mmol/L) 98 Carbon Dioxide (22 - 30 mmol/L) 27 Anion Gap (5 - 16) 10 BUN (7 - 17 mg/dL) 19 H Creatinine (0.5 - 1.0 mg/dL) 4.6 H Estimated GFR (>60 ml/min) 11 L BUN/Creatinine Ratio (7 - 25 %) 4.1 L Hematology CBC w Diff NO MAN DIFF REQ WBC (4.8 - 10.8 /CUMM) 14.4 H RBC (4.20 - 5.40 /CUMM) 2.78 L Hgb (12.0 - 16.0 G/DL) 8.3 L Hct (37 - 47 %) 25.7 L MCV (81.0 - 99.0 FL) 92.5 MCH (27.0 - 31.0 PG) 30.0 RDW (11.5 - 14.5 %) 16.6 H Plt Count (130 - 400 /CUMM) 247 MPV (7.4 - 10.4 FL) 8.6 Gran % (42.2 - 75.2 %) 89.8 H Lymphocytes % (20.5 - 51.1 %) 4.7 L Monocytes % (1.7 - 9.3 %) 4.1 Eosinophils % (0 - 5 %) 1.3 Basophils % (0.0 - 2.0 %) 0.1 Absolute Granulocytes (1.4 - 6.5 /CUMM) 12.9 H Absolute Lymphocytes (1.2 - 3.4 /CUMM) 0.7 L Absolute Monocytes (0.10 - 0.60 /CUMM) 0.6 Absolute Eosinophils (0.0 - 0.7 /CUMM) 0.2 Absolute Basophils (0.0 - 0.2 /CUMM) 0 PUBS MCHC (33.0 - 37.0 G/DL) 32.4 L Toxicology Random Vancomycin (ug/ml) 21.3 Last 24 Hours of [place] Results: Blood cultures 2 March 03 positive for Staph species, with identification pending Recent Imaging Studies: Doppler of the left upper extremity reveals an echogenic mobile thrombus within the left IJ, measuring 0.8 x 2.4 cm Echocardiogram March 04 negative for any obvious vegetations Assessment/Plan Impression: Staph sepsis most likely catheter related, status post placement of a right IJ Glenroy catheter 2 weeks prior to admission. She was again febrile last night, though white blood cell count is decreasing, on Vancomycin Day 2. Suspect that the blood cultures will be identified as Staph aureus or, perhaps, Staph lugdunensis, and feel that the catheter should be removed. She is refusing this at this time. Of note she has also been on Eliquis, which may complicate removal of the catheter per IR. In the interim she can be continued on Vancomycin pending final identification. She will need a dose today but should not require any further dosing until her next dialysis. Suggestion: 1. Would pursue removal of the Glenroy catheter as soon as possible (and culture the tip) 2. Repeat blood cultures 2 today 3. Follow-up final blood culture results 4. Will discuss need for AARON based on above 5. Re-dose with Vancomycin today per dialysis protocol 6. Further antibiotics based on final culture results
[2017-03-05 22:15] VITALS: BP 150/90
--- NOTE | 2017-03-05 23:53 | NUR ---
LATE ENTRY: AT 1600 PT'S BP 190/100. 100 MG OF PO HYDRALAZINE GIVEN ORDERED. BP REMAINED ELEVATED. A ONE TIME DOSE OF PROPANOLOL 100 MG PO GIVEN. AT 1800 BP 150/80. AT 2030 BP 180/90. HYDRALAZINE AND PROPONOLOL GIVEN. BP CURRENTLY 150/90. THROUGHOUT SHIFT PT REMAINED ASYMPTOMATIC, DENIED ANY CHEST PAIN. PT IN NO DISTRESS. AT 1999 PT TOLD THIS RN THAT PERITONEAL CATHATHER WAS DRAINING SCANT PUS. RN DID NOT SEE PUS. MD DIETRICH CALLED AND MADE AWARE OF PUS DRAINAGE. SITE IS C/D/I. NO REDNESS OR DRAINAGE NOTED BY RN.
[2017-03-06 02:30] LABS: PTT > 120 SEC (25-37)
[2017-03-06 07:02] VITALS: BP 196/104
--- NOTE | 2017-03-06 08:16 | NUR ---
AT 0702, PATIENT'S BP = 196/104. KATHE COTA, DR CHOWDHURY, CALLED AND APPROVED GIVING PATIENT'S HYDRALAZINE EARLY WELL FOLLOWED BY LABETALOL EARLY. HYDRALAZINE GIVEN AT APPROX 0730. REPORT GIVEN TO FOLLOWING SHIFT AND BP TO BE RECHECKED IN APPROX ONE HOUR. LABETALOL CAN BE GIVEN AT 0900 SINCE EVENING DOSE WAS GIVEN AT APPROX 2100.
--- NOTE | 2017-03-06 08:28 | PN- Housestaff ---
See Addendum Subjective Follow-up For: ESRD on HD Sepsis Uncontrolled HTN Subjective: Patient was seen and examined this morning, lying comfortably in bed, tolerating diet well, denied any nausea, vomiting, abdominal pain, fever or chills. Reported discharge from Peritoneal Dialysis Catheter, no discharge was noticed on examination this morning. BP elevated, BP medcation the patella and ability patient was given, blood pressure rechecked 150/80 Review of Systems Constitutional: Reports: see HPI. Objective Last 24 Hrs of Vital Signs/I&O Vital Signs Date Time Temp Pulse Resp B/P B/P Pulse O2 O2 Flow FiO2 Mean Ox Delivery Rate 03/06 1005 82 212/100 03/06 1004 82 212/100 03/06 0702 97.8 75 20 196/104 91 Room Air 03/06 0654 196/104 03/05 2215 98.4 74 20 150/90 98 Room Air 03/05 2050 69 180/90 03/05 2042 59 180/90 03/05 1746 84 190/10 03/05 1630 190/100 03/05 1456 84 184/100 03/05 1439 84 183/100 100 Nasal 3.0L Cannula 03/05 1333 84 178/80 / 1333 84 178/80 / 1308 99.0 84 20 178/80 97 Nasal 3.0L Cannula Intake & Output 03/06 1600 03/06 0800 06/ 0000 Intake Total 200 500 Output Total Balance 200 500 Intake, IV 200 Intake, Oral 500 Patient 67.132 kg Weight Physical Exam General Appearance: Alert, Oriented X3, Cooperative, No Acute Distress Skin: No Rashes, No Breakdown, No Significant Lesion Skin Temp/Moisture Exam: Warm/Dry HEENT: Atraumatic, PERRLA, EOMI, Mucous Membr. moist/pink Neck: Supple, No JVD Cardiovascular: Regular Rate, Normal S1, Normal S2, No Murmurs Lungs: Clear to Auscultation, Normal Air Movement Abdomen: Normal Bowel Sounds, Soft, No Tenderness, No Hepatospenomegaly, No Masses Neurological: Normal Gait, Normal Speech, Strength at 5/5 X4 Ext, Normal Tone, Sensation Intact, Cranial Nerves 3-12 NL, Reflexes 2+ Extremities: No Clubbing, No Cyanosis, No Edema, Normal Pulses, No Tenderness/ Swelling Assessment/Plan Assessment: Ms. Wilson is a 31 y/o F with PMHx of ESRD on HD, resistant HTN with multiple hospitalizations for hypertensive urgency and previous ischemic and hemorrhagic strokes with residual minimal left-sided weakness and dysarthria who presents with fever and chills. #Sepsis: Patient met SIRS criteria for sepsis on admission with fever to 102.6 and leukocytosis with WBC count of 15.0. Etiology is unclear although most likely source is the RIJ catheter with erythema and tenderness at the site. Pneumonia is unlikely in the absence of respiratory symptoms and consolidation on CXR. Patient is anuric at baseline thus urinary source can be ruled out. S/p 1 dose of vancomycin and ceftazidime in the ED. History of MRSA sepsis attributed to an infected port-a-cath in September 2014 treated at [facility]. * ID & nephro consult appreciated, suggested removing HD catheter, though patient not amenable at this time * Continue heparin drip, elequis is on hold for anticipated IR procedure to remove glenroy catheter * BC from 03/05 is negative so far, consider AARON in case BC is positive * Continue vancomycin for now (per dialysis protocol), tailor once micro finalized * Culture the tip of the Glenroy cath at RIJ site upon removal, patient doesn't want glenroy catheter to be removed unless blood culture is positive #ESRD on HD: Switched from peritoneal dialysis to HD one month ago due to noncompliance issues. * Nephrology consulted. Appreciate their recs. * Continue HD per nephro. #Resistant HTN: Multiple hospitalizations for hypertensive urgency felt to be 2/ 2 medication and dialysis noncompliance. Follows with resort desk clerk Dr. Mariee. Zowbg-kd-sabnxsocz meds include amlodipine 10 mg PO daily, clonidine patch, hydralazine 100 mg PO TID, labetalol 300 mg PO BID and losartan 100 mg PO daily. BP was elevated to 220/1220 on initial presentation but later came down to 120/ 70. Rapid drop in BP is concerning for impending septic shock. CT Head with no acute intracranial findings. Most recent ECHO in January 2017 with normal LVEF estimated at 65-70% and severe concentric hypertrophy with diastolic dysfunction. * Cardiology consult appreciated * Suggested increasing clonidine patch to TTS-3 * [place]-hypertensives resumed, though labetolol is currently at a lower dose than home medication. 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 * Eliquis is on hold in the setting of possible surgical intervention * Continue heparin drip per protocol, discontinue few hours before procedure #Duodenitis/gastritis: * Continue wwftt-jb-ujskmdmbi omeprazole 20 mg PO BID. #Anxiety: * Continue kjhnt-lw-bffgkxkiy Xanax 0.5 mg PO daily PRN. Diet: Renal dialysis DVT PPx: Heparin and ALPs CODE: FULL Problem List: 1. ESRD 2. ESRD (end stage renal disease) on dialysis 3. HTN (hypertension) Pain Ratin Pain Location: none Pain Goal: Pain 4 or less Pain Plan: Moderate pain pathway Tomorrow's Labs & Rationales: CBC, BMP
--- NOTE | 2017-03-06 10:00 | NUR ---
NOTIFIED FEATHER WASHER DR LEBRON #156 OF BP 212/100, P 82. PER FEATHER WASHER GIVE LOSARTAAN AND AMLODIPINE. PATIENT ASYMPTOMATIC. RECHECK IN AN HOUR AFTER GIVING MEDS. WILL CONTINUE TO MONITOR.
--- NOTE | 2017-03-06 10:00 | NUR ---
NOTIFIED PLASMA SPECIALIST DR LEBRON #156 OF BP 212/100, P 82. PER PLASMA SPECIALIST GIVE LABETOLOL AND AMLODIPINE FOR NOW AND RECHECK BP IN AN HOUR AFTER GIVING MEDICATION. PATIENT ASYMPTOMATIC. WILL CONTINUE TO MONITOR.
[2017-03-06 10:45] LABS: PTT 60 SEC (25-37)
[2017-03-06 11:30] VITALS: BP 154/80
--- NOTE | 2017-03-06 11:30 | NUR ---
REPORTED TO CO FOUNDER AND CHAIRMAN DR LEBRON #156 OF REPEAT BP AFTER GIVING MEDICATIONS THIS MORNING, BP 154/80, P 74. PER CO FOUNDER AND CHAIRMAN HOLD OFF ON GIVING LOSARTAAN FOR NOW AND RECHECK BP/P THIS AFTERNOON. WILL CONTINUE TO MONITOR.
--- NOTE | 2017-03-06 11:30 | NUR ---
REPORTED REPEAT BP AFTER GIVING MEDICATIONS THIS MORNING TO DR LEBRON #156. BP 154/80, P 82. PER WAREHOUSE TEAM LEADER HOLD LABETOLOL FOR NOW AND RECHECK THIS AFTERNOON. WILL CONTINUE TO MONITOR.
--- NOTE | 2017-03-06 13:30 | NUR ---
REVIEWED WITH DIRECTOR FACILITIES MAINTENANCE DR LEBRON #156 REGARDING HEPARIN DRIP BOLUS AND INCREASING OF RATE. WEIGHT TODAY WAS A 148 LBS. PER DIRECTOR FACILITIES MAINTENANCE USE THIS WEIGHT FOR CHANGES WITH HEPARIN DRIP.
[2017-03-06 15:29] VITALS: BP 174/83
--- NOTE | 2017-03-06 15:32 | Patient Discharge Instructions ---
Discharge Instructions General Discharge Information You were seen/treated for: SEPSIS from right CVC catheter site Special Instructions: Please follow up with your PCP in a week Please follow up with in a week Diet Continue normal diet: No Recommended Diet: Heart Healthy Activity Full Activity/No Limits: Yes Activity Self Limited: Yes Acute Coronary Syndrome Inclusion Criteria At DC or during hospital stay patient has or had the following: ACS DIAGNOSIS No Discharge Core Measures Meds if any: Prescribed or Continued at Discharge Meds if any: NOT Prescribed or Continued at Discharge Congestive Heart Failure Inclusion Criteria At DC or during hospital stay patient has or had the following: CHF DIAGNOSIS No Discharge Core Measures Meds if any: Prescribed or Continued at Discharge Meds if any: NOT Prescribed or Continued at Discharge Cerebrovascular accident Inclusion Criteria At DC or during hospital stay patient has or had the following: CVA/TIA Diagnosis No Discharge Core Measures Meds if any: Prescribed or Continued at Discharge Meds if any: NOT Prescribed or Continued at Discharge Venous thromboembolism Inclusion Criteria VTE Diagnosis No VTE Type NONE VTE Confirmed by (Test) NONE Discharge Core Measures - Per Current guidelines, there needs to be overlap - treatment for the first 5 days of Warfarin therapy. - If discharged on Warfarin prior to 5 days of - overlap therapy, the patient will need to be - assessed for post discharge needs including - *Post discharge parental anticoagulation - *Warfarin and/or parental anticoagulation education - *Follow up date to check INR post discharge At least 5 days overlap therapy as Inpatient No Meds if any: Prescribed or Continued at Discharge Note: Overlap Therapy is Warfarin and Anticoagulant Meds if any: NOT Prescribed or Continued at Discharge
--- NOTE | 2017-03-06 17:10 | PN- Cardiology ---
Subjective Subjective: * No specific complaints although patient is despondent over her health issues * left arm DVT * WBC down to 14.4 Objective Vital Signs and I&Os Vital Signs Date Time Temp Pulse Resp B/P B/P Pulse O2 O2 Flow FiO2 Mean Ox Delivery Rate 03/06 1626 69 172/80 03/06 1529 97.8 67 20 174/83 99 Room Air 03/06 1130 74 154/80 03/06 1005 82 212/100 03/06 1004 82 212/100 03/06 0702 97.8 75 20 196/104 91 Room Air 03/06 0654 196/104 03/05 2215 98.4 74 20 150/90 98 Room Air 03/05 2050 69 180/90 03/05 2042 59 180/90 03/05 1746 84 190/10 Intake & Output 03/06 1600 03/06 0800 03/06 0000 03/05 1600 03/05 0800 03/05 0000 Intake Total 532 200 500 490 550 610 Output Total 0 0 Balance 532 200 500 490 550 610 Intake, IV 192 200 40 70 250 Intake, Oral 340 500 450 480 360 Number 1 0 0 Bowel Movements Output, Urine 0 0 Patient 148 lb 158 lb 164 lb Weight Weight Standing Scale Standing Scale Measurement Method Physical Exam: General: WD/ WN female in NAD; alert and oriented x 3 Neck: no JVD Heart: RRR Lungs: clear bilaterally Extremities: left arm swollen, no leg edema Assessment/Plan Assessment/Plan * A AARON is being considered base on blood culture results. Patient is now afebrile. Continue antibiotic therapy. * Continue IV heparin for DVT. * Stop Amlodipine and begin Nifedipine ER 30mg daily for better control of her blood pressure. Increase to 60mg daily if needed. Continue telemetry? No
--- NOTE | 2017-03-06 18:27 | PN- Nephrology ---
Assessment/Plan Assessment: Staph Aureus bacteremia most likely from line source. As in Dr. Long's note this is almost impossible to eradicate without line removal. I discussed this with Ms. Wilson as well as the danger of not removing the line (Staph Aureus bacteremia is associated with about a 10+% incidence of metastatic disease - abcess, osteo, endocarditis). I do not think we will be able to eradicate the infection without line removal (negative f/u cultures do not mean the line is not infected, bacteremia can be supressed with antibiotics). Given that the organism is oxacillin sensitive would discuss with Dr. Sommer changing over to Ancef 2 grams after each dialysis - ancef/penicillins are cidal rather than static drug (vanco is static) and has a better clearance rate and are easier to dose. Recommend: Will plan dialysis Moday AM Would optimally remove line after dialysis Wednesday Replace catheter AM (Tricia) and dialyze Wednesday PM Repeat BC now as in Dr Long's note I discussed diet with patient. No fluids in room other than meals 1200 cc FR - she has had severe CHF in past 2g K restriction - she should already be aware. Suggestion: . Subjective Subjective: Events noted. Pt refused catheter removal yesterday. BC grew Methacillin sensitive Staph Aureus. Pt with copious fluids in room (3 bottles (20 oz) flavored water, 1 medium coffee -[employer], 1 quart pitcher of water), and high K foods (1 orange half eaten). I confiscated these and removed them from her room. Her family can take them home if they wish. Objective Vital Signs and I&Os 97.8 69 172/80 Skin neg rash Lungs clear Cor RRR Abd soft N/T Ext neg edema Results Pertinent Lab Results: Blood Cx x 2 Staph Aureus sensitive cefazolin
--- NOTE | 2017-03-06 19:19 | NUR ---
AROUND 1829 PT CALLED THIS RN TO ROOM. PT STATED IN BEING 10/10 AND REQUESTED PAIN MEDICATION. SINCE PT NOT DUE FOR DILAUDID, VICODIN OFFERED. PT REFUSED VICODIN AND STATED SHE WANTED ANOTHER DOSE OF DILAUDID AND DESPERATELY WANTED HER 0.5 IV DILAUDID INCREASED TO 1 MG. PT STATED THE PAIN CAME FROM THE LEFT SHOULDER WHICH RADIATED TO THE LEFT ELBOW. PT DENIED ANY CHEST PAIN. VITALS TAKEN, BP 188/80, HR 78, O2 96% ON R.A. MD LEBRON NOTIFIED. MD LEBRON ORDERED A ONE TIME DOSE OF DILAUDID 0.4MG IV AND INCREASED HER PRN DOSAGE TO 1 MG. XANAX GIVEN FOR PT'S ANXIETY. PER MD LEBRON, PT'S 2199 SCHEDULED HYDRALAZINE TO BE GIVEN NOW. MEDICATIONS GIVEN. PT APPEARS IN NO ACUTE DISTRESS. BP WILL BE RECHECK IN AN HOUR.
[2017-03-06 20:02] LABS: PTT 78 SEC (25-37)
[2017-03-06 22:00] VITALS: BP 186/90
--- NOTE | 2017-03-06 22:13 | NUR ---
AT 2200 BP 186/90, P 74. PT DENIES CHEST PAIN. 200MG OF SCHEDULED LABETOLOL GIVEN. MD SHELBIE AGUILAR NOTIFIED. WILL RECHECK IN APROX. ONE HOUR.
--- NOTE | 2017-03-06 22:55 | NUR ---
BP RECHECHED AT 2240. BP 210/100. MD SHELBIE AGUILAR NOTIFIED. 30 MG OF PROCARDIA XL GIVEN. PT IN NO APPARENT DISTRESS. DENIES ANY CHEST PAIN. WILL RECHECK WITHIN THE HOUR.
[2017-03-07 00:16] VITALS: BP 182/98
[2017-03-07 07:13] VITALS: BP 162/84
--- NOTE | 2017-03-07 08:15 | PN- Housestaff ---
ELIZA COTA,NIGEL 03/07/17 0815: Subjective Follow-up For: ESRD on HD Sepsis Uncontrolled HTN Subjective: Patient seen and examined this morning. Resting comfortably in bed with no acute complaints other than chronic pain in the left shoulder radiating to the elbow. Vitals significant for elevated BP. Remains afebrile and HDS otherwise. Denies any fever, chills, chest discomfort, palpitations, dyspnea, abdominal pain, nausea, vomiting, headache. No events reported overnight. Review of Systems Constitutional: Reports: see HPI. Objective Last 24 Hrs of Vital Signs/I&O Vital Signs Date Time Temp Pulse Resp B/P B/P Pulse O2 O2 Flow FiO2 Mean Ox Delivery Rate 03/07 0713 98.3 71 20 162/84 93 03/07 0016 182/98 03/06 2253 202/108 03/06 2200 98.1 74 18 186/90 95 Room Air 03/06 2142 98.1 74 18 186/90 03/06 1900 78 188/90 03/06 1626 69 172/80 03/06 1529 97.8 67 20 174/83 99 Room Air 03/06 1130 74 154/80 03/06 1005 82 212/100 03/06 1004 82 212/100 Intake & Output 03/07 1600 03/07 0800 03/07 0000 Intake Total 200 650 Output Total Balance 200 650 Intake, IV 200 Intake, Oral 650 Patient 69.853 kg Weight Weight Chair scale Measurement Method Physical Exam General Appearance: Alert, Oriented X3, Cooperative, No Acute Distress Other Physical Findings: Skin: No Rashes, No Breakdown, No Significant Lesion Skin Temp/Moisture Exam: Warm/Dry HEENT: Atraumatic, PERRLA, EOMI, Mucous Membr. moist/pink Neck: Supple, No JVD Cardiovascular: Regular Rate, Normal S1, Normal S2, No Murmurs Lungs: Clear to Auscultation, Normal Air Movement Abdomen: Normal Bowel Sounds, Soft, No Tenderness, No Hepatospenomegaly, No Masses Neurological: Normal Gait, Normal Speech, Strength at 5/5 X4 Ext, Normal Tone, Sensation Intact, Cranial Nerves 3-12 NL, Reflexes 2+ Extremities: No Clubbing, No Cyanosis, No Edema, Normal Pulses, No Tenderness/ Swelling Current Medications: Current Medications Sig/Bryan Start time Last Medication Dose Route Stop Time Status Admin Acetaminophen 650 MG Q6P PRN 03/04 0115 AC PO Acetaminophen/ 1 TAB Q6P PRN 03/04 0115 AC Hydrocodone Bitart PO Alprazolam 0.5 MG DAILY NEEDED PRN 03/04 0145 AC 03/07 PO 03/11 0144 0252 Amlodipine Besylate 10 MG DAILY 03/04 1015 DC 03/06 PO 1004 Calcium 600 MG BID 03/04 1000 AC 03/06 PO 2142 Clonidine 3 PAT ONCE A WEEK 03/05 1115 03/05 TOP 1333 Heparin Sodium 2,680 UNIT ONCE ONE 03/06 1330 DC 03/06 (Porcine) IV 03/06 1331 1338 Heparin Sodium 25,000 UNIT Q24H 03/05 1330 AC 03/06 (Porcine) IV 1627 Sodium Chloride 500 ML Hydralazine HCl 100 MG TID 03/04 1045 AC 03/06 PO 1900 Hydromorphone HCl 0.4 MG ONCE ONE 03/06 1845 DC 03/06 IV 03/06 1846 1838 Hydromorphone HCl 1 MG Q6-PRN PRN 03/06 1845 AC 03/07 IV 0422 Hydromorphone HCl 0.5 MG Q6-PRN PRN 03/04 0500 DC 03/06 IV 1625 Labetalol HCl 200 MG BID 03/05 2200 AC 03/06 PO 2142 Losartan Potassium 100 MG DAILY 03/04 1045 AC 03/06 PO 1525 Mupirocin 1 UDAY TIDPRN PRN 03/04 0145 TOP Nifedipine 30 MG DAILY 03/07 1000 AC PO Nifedipine 30 MG ONCE ONE 03/06 2245 DC 03/06 PO 03/06 2246 2253 Omeprazole 20 MG 0700,1600 /08 0700 AC 03/07 PO 0652 Ondansetron HCl 4 MG Q6P PRN 03/04 1015 AC 03/05 IV 0559 Vancomycin HCl See Dose MoWeFr PRN 03/05 1500 AC Insts (1) IV Dose Instructions: (1)Vancomycin HCl: DOSE BASED ON RANDOM VANCO LEVELS ON DIALYSIS DAYS Last 24 Hrs of Lab/Ashwin Results Last 24 Hrs of Labs/Mics: Laboratory Tests 03/07/17 0750: Sodium Pending, Potassium Pending, Chloride Pending, Carbon Dioxide Pending, Anion Gap Pending, BUN Pending, Creatinine Pending, BUN/Creatinine Ratio Pending , APTT Pending, CBC w Diff Pending, WBC Pending, RBC Pending, Hgb Pending, Hct Pending, MCV Pending, MCH Pending, RDW Pending, Plt Count Pending, MPV Pending, PUBS MCHC Pending 03/06/17 1930: APTT 78 H 03/06/17 0940: APTT 60 H Assessment/Plan Assessment: Ms. Wilson is a 31 y/o F with PMHx of ESRD on HD, resistant HTN with multiple hospitalizations for hypertensive urgency and previous ischemic and hemorrhagic strokes with residual minimal left-sided weakness and dysarthria who presents with fever and chills. #Sepsis - resolved Patient met SIRS criteria for sepsis on admission with fever to 102.6 and leukocytosis with WBC count of 15.0. Etiology is unclear although most likely source is the RIJ catheter with erythema and tenderness at the site. Pneumonia is unlikely in the absence of respiratory symptoms and consolidation on CXR. Patient is anuric at baseline thus urinary source can be ruled out. S/p 1 dose of vancomycin and ceftazidime in the ED. History of MRSA sepsis attributed to an infected port-a-cath in September 2014 treated at [facility]. * ID & nephro consult appreciated - HD catheter to be removed tmrw * Con IV heparin in anticipation for IR proecedure tmrw * After the cath removal tmrw, discontinue Heparin drip and resume Elequis * Culture the tip of the Glenroy cath at RIJ site upon removal * After dialysis tomorrow morning, begin Cefazolin 1.5 g IV and continue after each dialysis * BC from 03/05 growing GPC in the second bottle * Continue vancomycin for now (per dialysis protocol) * Repeat blood cultures 2 today * Consider AARON (appreciate cardio input) #ESRD on HD: Switched from peritoneal dialysis to HD one month ago due to noncompliance issues. * Nephrology consulted. Appreciate their recs. * Continue HD per nephro. * Pending HD cath removal scheduled for tomororw #Resistant HTN: Multiple hospitalizations for hypertensive urgency felt to be 2/ 2 medication and dialysis noncompliance. Follows with net solutions architect Dr. Mariee. Jojno-gl-vddrvonda meds include amlodipine 10 mg PO daily, clonidine patch, hydralazine 100 mg PO TID, labetalol 300 mg PO BID and losartan 100 mg PO daily. BP was elevated to 220/1220 on initial presentation but later came down to 120/ 70. Rapid drop in BP is concerning for impending septic shock. CT Head with no acute intracranial findings. Most recent ECHO in January 2017 with normal LVEF estimated at 65-70% and severe concentric hypertrophy with diastolic dysfunction. * Cardiology consult appreciated * Clonidine patch TTS-3 * Home antihypertensives resumed, though labetolol is currently at a lower dose than home medication. 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 * Eliquis is on hold in the setting of possible surgical intervention * Continue heparin drip per protocol, discontinue few hours before procedure #Duodenitis/gastritis: * Continue sivdb-dr-enqgzpgro omeprazole 20 mg PO BID. #Anxiety: * Continue wbghi-ti-nhqieidcc Xanax 0.5 mg PO daily PRN. Diet: Renal dialysis DVT PPx: Heparin and ALPs CODE: FULL Problem List: 1. HTN (hypertension) 2. ESRD on hemodialysis 3. CKD (chronic kidney disease) 4. Sepsis 5. Uncontrolled hypertension 6. CHF (congestive heart failure) 7. Stroke Pain Ratin Pain Location: LUE Pain Goal: Remain pain free Pain Plan: Mild path Tomorrow's Labs & Rationales: CBC BEP BLANCA COTA,PAMELA 03/07/17 1101: Attending MD Review Statement Attending Statement Attending MD Statement: examined this patient, discuss w/resident/PA/BONDERITE OPERATOR, agreed w/resident/PA/BONDERITE OPERATOR, reviewed EMR data (avail) Attending Assessment/Plan: Patient doing well today. Afebrile, stable vitals. Culture from 03/05 growing GPC in 1 set. Blood cultures from 03/03 growing MSSA. BP is improved today. Patient consents to having dialysis catheter removed. Plan - Continue on general medicine - Dialysis catheter to be removed tomorrow after dialysis with tip culture - Continue Cefazolin per ID recommendations - Follow ID and nephrology recommendations - Continue home medications - Will continue Nifedipine in addition to home BP meds for better blood pressure control - Continue heparin drip until dialysis catheter is eventually replaced on
[2017-03-07 08:38] LABS: ABSOLUTE BASOPHIL COUNT 0.1 /CUMM (0.0-0.2); ABSOLUTE EOSINOPHIL COUNT 0.6 /CUMM (0.0-0.7); ABSOLUTE GRANULOCYTE CT 4.9 /CUMM (1.4-6.5); ABSOLUTE LYMPH COUNT 2.6 /CUMM (1.2-3.4); ABSOLUTE MONOCYTE COUNT 0.8 /CUMM (0.10-0.60); BASOPHIL % 0.7 % (0.0-2.0); EOSINOPHIL % 6.8 % (0-5); GRANULOCYTE % 54.8 % (42.2-75.2); HEMATOCRIT 25.1 % (37-47); MEAN CORPUSCULAR HGB 29.6 PG (27.0-31.0); MEAN CORPUSCULAR HGB CONC 32.1 G/DL (33.0-37.0); MEAN CORPUSCULAR VOLUME 92.1 FL (81.0-99.0); MEAN PLATELET VOLUME 8.8 FL (7.4-10.4); PLATELET COUNT 261 /CUMM (130-400); RBC DISTRIBUTION WIDTH 16.5 % (11.5-14.5); RED BLOOD CELL CT 2.73 /CUMM (4.20-5.40); WHITE BLOOD CELL COUNT 8.9 /CUMM (4.8-10.8)
--- NOTE | 2017-03-07 09:48 | PN- Infect Dx ---
Subjective Subjective: Afebrile. She complains of fatigue and left upper extremity pain. Objective Last 24 Hrs of Vital Signs/I&O Vital Signs Date Time Temp Pulse Resp B/P B/P Pulse O2 O2 Flow FiO2 Mean Ox Delivery Rate 03/07 0713 98.3 71 20 162/84 93 03/07 0016 182/98 03/06 2253 202/108 03/06 2200 98.1 74 18 186/90 95 Room Air 03/06 2142 98.1 74 18 186/90 03/06 1900 78 188/90 03/06 1626 69 172/80 03/06 1529 97.8 67 20 174/83 99 Room Air 03/06 1130 74 154/80 03/06 1005 82 212/100 03/06 1004 82 212/100 Intake & Output 03/07 1600 03/07 0800 03/07 0000 Intake Total 200 650 Output Total Balance 200 650 Intake, IV 200 Intake, Oral 650 Patient 154 lb Weight Weight Chair scale Measurement Method Physical Exam Other Physical Findings: She appears in no acute distress Neck right IJ Glenroy catheter site slightly tender on palpation Lungs decreased breath sounds bilaterally Heart regular rhythm with a 2/6 systolic ejection murmur Abdomen is soft, mildly tender on palpation over the left lower quadrant, with positive bowel sounds Extremities left upper extremity swelling persists Results Last 24 Hours of Lab Results: Laboratory Tests 03/07 03/06 0750 1930 Chemistry Sodium Pending Potassium Pending Chloride Pending Carbon Dioxide Pending Anion Gap Pending BUN Pending Creatinine Pending BUN/Creatinine Ratio Pending Coagulation APTT (25 - 37 SEC) Pending 78 H Hematology CBC w Diff NO MAN DIFF REQ WBC (4.8 - 10.8 /CUMM) 8.9 RBC (4.20 - 5.40 /CUMM) 2.73 L Hgb (12.0 - 16.0 G/DL) 8.1 L Hct (37 - 47 %) 25.1 L MCV (81.0 - 99.0 FL) 92.1 MCH (27.0 - 31.0 PG) 29.6 RDW (11.5 - 14.5 %) 16.5 H Plt Count (130 - 400 /CUMM) 261 MPV (7.4 - 10.4 FL) 8.8 Gran % (42.2 - 75.2 %) 54.8 Lymphocytes % (20.5 - 51.1 %) 29.1 Monocytes % (1.7 - 9.3 %) 8.6 Eosinophils % (0 - 5 %) 6.8 H Basophils % (0.0 - 2.0 %) 0.7 Absolute Granulocytes (1.4 - 6.5 /CUMM) 4.9 Absolute Lymphocytes (1.2 - 3.4 /CUMM) 2.6 Absolute Monocytes (0.10 - 0.60 /CUMM) 0.8 H Absolute Eosinophils (0.0 - 0.7 /CUMM) 0.6 Absolute Basophils (0.0 - 0.2 /CUMM) 0.1 PUBS MCHC (33.0 - 37.0 G/DL) 32.1 L Last 24 Hours of Ashwin Results: Blood cultures 2 March 03 positive for Staph aureus sensitive to Oxacillin Blood cultures 2 March 05 1 bottle positive for gram-positive cocci in clusters Assessment/Plan Impression: Staph aureus sepsis presumably secondary to an infected right IJ Glenroy catheter, which was placed 2 weeks prior to admission. She has defervesced and white blood cell count has normalized but it is unlikely that this infection will clear without removal of the catheter. She refused this on March 05, but apparently is now agreeable and the catheter will apparently be removed in the a.m. after dialysis. She received a dose of Vancomycin on March 05 but, as the Staph aureus is sensitive to Oxacillin, her antibiotics can be changed. Suggestion: 1. Repeat blood cultures 2 today 2. Await removal of the Glenroy catheter in the a.m. (would culture the tip) 3. Will discuss need for AARON with Cardiology 4. Would begin Cefazolin 1.5 g IV after dialysis in the a.m. and continue after each dialysis
--- NOTE | 2017-03-07 09:54 | NUR ---
LATE ENTRY: RN NOTIFIED THAT LAB COULD NOT PROCESS PT'S 0730 PTT DRAW D/T ISSUE WITH THE TUBE. DR. KAY NOTIFIED OF ISSUE. [facility]ER [employer]WER CONTACTED BLOOD DRAWS HAVE BEEN OBTAINED FROM [facility] SITE D/T PT'S POOR ACCESS. PT UPDATED. BLOOD COLLECTED AND SENT TO LAB. PENDING RESULTS. WILL CONT TO MONITOR.
[2017-03-07 11:13] LABS: PTT 98 SEC (25-37)
[2017-03-07 20:34] LABS: PTT 90 SEC (25-37)
[2017-03-07 22:18] VITALS: BP 160/80
--- NOTE | 2017-03-08 06:45 | PN- Housestaff ---
See Addendum Subjective Follow-up For: ESRD on HD Sepsis Uncontrolled HTN Subjective: Patient seen and examined at bedside this AM. She reports she did not sleep well last night but is otherwise alright. She denies fever, chills, chest pain, or pain at the site of her HD catheter. Patient is amenable to removal of HD catheter today after dialysis this AM. As per ID recommendations, patient will be switched to IV cefazolin 1.5 gm IV after dialysis. Discussed case with pharmacy and patient has received ceftazidime without issue/allergic reaction therefore we will proceed with cefazolin and monitor for any reaction as patient has PCN allergy listed. Review of Systems Constitutional: Denies: chills, fever, malaise. EENTM: Denies: blurred vision, visual changes, hearing changes, nasal congestion. Cardiovascular: Denies: chest pain, palpitations. Respiratory: Denies: cough, short of breath. Gastrointestinal: Denies: abdominal pain, nausea, vomiting. Genitourinary: Denies: dysuria, hesitation. Musculoskeletal: Denies: back pain. Skin: Denies: rash. Neurological/Psychological: Denies: confusion. Hematologic/Endocrine: Denies: bleeding. Objective Last 24 Hrs of Vital Signs/I&O Vital Signs Date Time Temp Pulse Resp B/P B/P Pulse O2 O2 Flow FiO2 Mean Ox Delivery Rate 03/08 0716 97.8 67 20 158/86 94 Room Air 03/078 98.1 68 18 160/80 96 Room Air 03/07 2217 68 160/80 03/07 2216 68 160/80 03/07 1053 78 172/92 03/07 1053 78 172/92 03/07 1052 78 172/92 03/07 1051 78 172/92 Intake & Output 03/08 1600 03/08 0800 03/08 0000 Intake Total 444 591 Output Total 0 Balance 444 591 Intake, IV 204 Intake, Oral 240 591 Number 0 Bowel Movements Output, Urine 0 Patient 153 lb Weight Physical Exam General Appearance: Alert, Oriented X3, Cooperative, No Acute Distress Skin: No Significant Lesion Skin Temp/Moisture Exam: Warm/Dry HEENT: Atraumatic, PERRLA, EOMI Neck: Supple Cardiovascular: Regular Rate, Normal S1, Normal S2 Lungs: Occasional basal rhonchi Abdomen: Normal Bowel Sounds, Soft, No Tenderness Neurological: Normal Speech, Normal Tone Extremities: Left upper extremity edema without interval change; trace bilateral pedal edema appreciated Current Medications: Current Medications Sig/Bryan Start time Last Medication Dose Route Stop Time Status Admin Acetaminophen 650 MG .STK-MED ONE 03/07 2154 DC PO 03/07 215 Acetaminophen 650 MG Q6P PRN 03/04 0115 AC PO Acetaminophen/ 1 TAB Q6P PRN 03/04 0115 AC Hydrocodone Bitart PO Alprazolam 0.5 MG DAILY NEEDED PRN 03/04 0145 AC 03/07 PO 03/11 0144 2217 Calcium 600 MG BID 03/04 1000 AC 03/07 PO 2216 Cefazolin Sodium 1,500 MG MoWeFr 03/08 0900 AC Sodium Chloride 100 ML IV Cefazolin Sodium 1,500 MG .[MWF DIALYSIS] 03/08 0800 CAN IV Clonidine 3 PAT ONCE A WEEK 03/05 1115 AC 03/05 TOP 1333 Heparin Sodium 25,000 UNIT Q24H 03/05 1330 AC 03/08 (Porcine) IV 0815 Sodium Chloride 500 ML Hydralazine HCl 100 MG TID 03/04 1045 AC 03/07 PO 2216 Hydromorphone HCl 1 MG Q6-PRN PRN 03/06 1845 AC 03/08 IV 0347 Labetalol HCl 200 MG BID 03/05 2200 AC 03/07 PO 2217 Losartan Potassium 100 MG DAILY 03/04 1045 AC 03/07 PO 1052 Mupirocin 1 UDAY TIDPRN PRN 03/04 0145 DC TOP Nifedipine 30 MG DAILY 03/07 1000 AC 03/07 PO 1053 Omeprazole 20 MG 0700,1600 /08 0700 AC 03/08 PO 0600 Ondansetron HCl 4 MG Q6P PRN 03/04 1015 AC 03/05 IV 0559 Vancomycin HCl See Dose MoWeFr PRN 03/05 1500 DC Insts (1) IV Dose Instructions: (1)Vancomycin HCl: DOSE BASED ON RANDOM VANCO LEVELS ON DIALYSIS DAYS Last 24 Hrs of Lab/Ashwin Results Last 24 Hrs of Labs/Mics: Laboratory Tests 03/08/17 0627: Sodium Pending, Potassium Pending, Chloride Pending, Carbon Dioxide Pending, Anion Gap Pending, BUN Pending, Creatinine Pending, BUN/Creatinine Ratio Pending , Glucose Pending, Calcium Pending, APTT Pending, CBC w Diff Pending, WBC Pending, RBC Pending, Hgb Pending, Hct Pending, MCV Pending, MCH Pending, RDW Pending, Plt Count Pending, MPV Pending, PUBS MCHC Pending, Hep Bs Antigen Pending, Hep Bs Antibody Pending 03/07/171946: APTT 90 H 03/07/17 1010: APTT 98 H Microbiology 03/07 1947 BLOOD: Blood Culture - RECD 03/07 1755 BLOOD: Blood Culture - RECD Assessment/Plan Assessment: Ms. Wilson is a 31 y/o F with PMHx of ESRD on HD, resistant HTN with multiple hospitalizations for hypertensive urgency and previous ischemic and hemorrhagic strokes with residual minimal left-sided weakness and dysarthria who presents with fever and chills. #Sepsis - resolved Patient met SIRS criteria for sepsis on admission with fever to 102.6 and leukocytosis with WBC count of 15.0. Etiology is most likely the RIJ catheter with erythema and tenderness at the site. Pneumonia is unlikely in the absence of respiratory symptoms and consolidation on CXR. Patient is anuric at baseline thus urinary source can be ruled out. S/p 1 dose of vancomycin and ceftazidime in the ED. History of MRSA sepsis attributed to an infected port-a-cath in September 2014 treated at [facility]. * ID & nephro consult appreciated - HD catheter to be removal today after HD. * Continue IV heparin in anticipation for IR procedure today * Will discuss with team about continuing heparin drip after HD catheter today as patient will likely have replacement of HD catheter on (with subsequent dialysis on ) * F/U culture of the tip of the Glenroy cath at RIJ site upon removal * Begin Cefazolin 1.5 g IV and continue after each dialysis, discontinue vancomycin * Repeat blood cultures 2 yesterday, follow up results * Consider AARON (appreciate cardio input) #ESRD on HD: Switched from peritoneal dialysis to HD one month ago due to noncompliance issues. * Nephrology consulted. Appreciate their recs. * Continue HD per nephro. * Remove HD cath today after HD, consider HD replacement on . #Resistant HTN: Multiple hospitalizations for hypertensive urgency felt to be 2/ 2 medication and dialysis noncompliance. Follows with sand drier Dr. Mariee. Vmytm-cf-belixqthw meds include amlodipine 10 mg PO daily, clonidine patch, hydralazine 100 mg PO TID, labetalol 300 mg PO BID and losartan 100 mg PO daily. BP was elevated to 220/1220 on initial presentation but later came down to 120/ 70. Rapid drop in BP is concerning for impending septic shock. CT Head with no acute intracranial findings. Most recent ECHO in January 2017 with normal LVEF estimated at 65-70% and severe concentric hypertrophy with diastolic dysfunction. * Cardiology consult appreciated * Clonidine patch TTS-3 * Cardiology recently discontinued amlodipine and added nifedipine ER 30 mg daily; if BP remains elevated, consider increasing to 60 mg ER daily * All home antihypertensives resumed (though labetolol at 200 mg BID instead of 300 mg BID and amlodipine recently discontinued as noted above) #Left IJ thrombosis: Developed two weeks ago at left IJ hemodialysis catheter site, followed by subsequent removal of left IJ catheter and placement of right IJ catheter. * Eliquis is on hold in the setting of possible surgical intervention * Continue heparin drip per protocol, discontinue few hours before procedure #Duodenitis/gastritis: * Continue yjhmb-xw-kkthdknvk omeprazole 20 mg PO BID. #Anxiety: * Continue fqajv-ww-chlxetaec Xanax 0.5 mg PO daily PRN. Diet: Renal dialysis DVT PPx: Heparin and ALPs CODE: FULL Problem List: 1. Sepsis 2. ESRD on hemodialysis 3. CKD (chronic kidney disease) 4. Uncontrolled hypertension Pain Ratin Pain Location: n/a Pain Goal: Remain pain free Pain Plan: Per pain pathway Tomorrow's Labs & Rationales: CBC (monitor for bleeding after HD removal, heparin gtt) BEP (renal dysfunction, monitor electrolytes)
[2017-03-08 07:16] VITALS: BP 158/86
--- NOTE | 2017-03-08 08:22 | NUR ---
NURSING NOTE: PT LEFT FLOOR VIA BED WITH DISTRIBUTION FOR NARESH. PT AWAKE, A/OX3, ROOM AIR, DENIES PAIN, RIJ ASHLEY CATH INTACT, DENIES PAIN, HEPARIN GTT PER PROTOCOL; AM PTT PENDING. REPORT GIVEN TO JAMIR INFANTE RN. AWAIT RETURN TO FLOOR
[2017-03-08 08:37] LABS: ABSOLUTE BASOPHIL COUNT 0.1 /CUMM (0.0-0.2); ABSOLUTE EOSINOPHIL COUNT 0.5 /CUMM (0.0-0.7); ABSOLUTE GRANULOCYTE CT 5.5 /CUMM (1.4-6.5); ABSOLUTE LYMPH COUNT 2.6 /CUMM (1.2-3.4); ABSOLUTE MONOCYTE COUNT 0.8 /CUMM (0.10-0.60); BASOPHIL % 0.7 % (0.0-2.0); EOSINOPHIL % 5.6 % (0-5); GRANULOCYTE % 58.1 % (42.2-75.2); HEMATOCRIT 24.6 % (37-47); MEAN CORPUSCULAR HGB 29.9 PG (27.0-31.0); MEAN CORPUSCULAR HGB CONC 32.6 G/DL (33.0-37.0); MEAN CORPUSCULAR VOLUME 91.7 FL (81.0-99.0); PLATELET COUNT 267 /CUMM (130-400); RBC DISTRIBUTION WIDTH 17.1 % (11.5-14.5); RED BLOOD CELL CT 2.68 /CUMM (4.20-5.40); WHITE BLOOD CELL COUNT 9.4 /CUMM (4.8-10.8)
--- NOTE | 2017-03-08 08:42 | PN- Nephrology ---
Assessment/Plan Assessment: Patient stable on dialysis. Blood culture postive from 03/03 and 03/05. Suggestion: Dialysis today witn 1.5 liter UF. Will have catheter pulled later today with new one placed on 03/10 prior to dialysis. Antibiotics changed to cefazolin. Subjective Subjective: Patient starting dialysis today. No complaints but fatigue. Objective Vital Signs and I&Os Vital Signs Date Time Temp Pulse Resp B/P B/P Pulse O2 O2 Flow FiO2 Mean Ox Delivery Rate 03/08 0716 97.8 67 20 158/86 94 Room Air 03/07 2218 98.1 68 18 160/80 96 Room Air 03/07 2217 68 160/80 03/07 2216 68 160/80 03/07 1053 78 172/92 03/07 1053 78 172/92 03/07 1052 78 172/92 03/07 1051 78 172/92 Intake & Output 03/08 1600 03/08 0400 03/07 1600 03/07 0400 03/06 1600 03/06 0400 Intake Total 444 591 550 650 732 500 Output Total 0 Balance 444 591 550 650 732 500 Intake, IV 204 400 392 Intake, Oral 240 591 150 650 340 500 Number 0 0 1 Bowel Movements Output, Urine 0 Patient 153 lb 154 lb 148 lb Weight Weight Chair scale Measurement Method Physical Exam: NAD VS as above. Lungs: decreased breath sounds on left CV: no rub Abd: non- tender Exts: no edema Neuro: no asterixis Current Medications: Current Medications Sig/Bryan Start time Last Medication Dose Route Stop Time Status Admin Acetaminophen 650 MG .STK-MED ONE 03/07 215 DC PO 03/07 215 Acetaminophen 650 MG Q6P PRN 03/04 0115 AC PO Acetaminophen/ 1 TAB Q6P PRN 03/04 0115 AC Hydrocodone Bitart PO Alprazolam 0.5 MG DAILY NEEDED PRN 03/04 0145 AC 03/07 PO 03/11 0144 2217 Calcium 600 MG BID 03/04 1000 AC 03/07 PO 2216 Cefazolin Sodium 1,500 MG MoWeFr 03/08 0900 AC Sodium Chloride 100 ML IV Cefazolin Sodium 1,500 MG .[MWF DIALYSIS] 03/08 0800 CAN IV Clonidine 3 PAT ONCE A WEEK 03/05 1115 AC 03/05 [facility] 1333 Heparin Sodium 25,000 UNIT Q24H 03/05 1330 AC 03/08 (Porcine) IV 0815 Sodium Chloride 500 ML Hydralazine HCl 100 MG TID 03/04 1045 AC 03/07 PO 2216 Hydromorphone HCl 1 MG Q6-PRN PRN 03/06 1845 AC 03/08 IV 0347 Labetalol HCl 200 MG BID 03/05 2200 AC 03/07 PO 2217 Losartan Potassium 100 MG DAILY 03/04 1045 AC 03/07 PO 1052 Mupirocin 1 UDAY TIDPRN PRN 03/04 0145 DC TOP Nifedipine 30 MG DAILY 03/07 1000 AC 03/07 PO 1053 Omeprazole 20 MG 0700,1600 08 0700 AC 03/08 PO 0600 Ondansetron HCl 4 MG Q6P PRN 03/04 1015 AC 03/05 IV 0559 Vancomycin HCl See Dose MoWeFr PRN 03/05 1500 DC Insts (1) IV Dose Instructions: (1)Vancomycin HCl: DOSE BASED ON RANDOM VANCO LEVELS ON DIALYSIS DAYS Results Pertinent Lab Results: Laboratory Tests 03/08 03/07 03/07 03/07 0627 1947 1010 0750 Chemistry Sodium (137 - 145 mmol/L) Pending 134 L Potassium (3.5 - 5.1 mmol/L) Pending 3.7 Chloride (98 - 107 mmol/L) Pending 101 Carbon Dioxide (22 - 30 mmol/L) Pending 26 Anion Gap (5 - 16) Pending 7 BUN (7 - 17 mg/dL) Pending 19 H Creatinine (0.5 - 1.0 mg/dL) Pending 5.4 *H Estimated GFR (>60 ml/min) 9 L BUN/Creatinine Ratio (7 - 25 %) Pending 3.5 L Glucose Pending Calcium Pending Coagulation APTT (25 - 37 SEC) Pending 90 H 98 H Hematology CBC w Diff Pending NO MAN DIFF REQ WBC (4.8 - 10.8 /CUMM) Pending 8.9 RBC (4.20 - 5.40 /CUMM) Pending 2.73 L Hgb (12.0 - 16.0 G/DL) Pending 8.1 L Hct (37 - 47 %) Pending 25.1 L MCV (81.0 - 99.0 FL) Pending 92.1 MCH (27.0 - 31.0 PG) Pending 29.6 RDW (11.5 - 14.5 %) Pending 16.5 H Plt Count (130 - 400 /CUMM) Pending 261 MPV (7.4 - 10.4 FL) Pending 8.8 Gran % (42.2 - 75.2 %) 54.8 Lymphocytes % (20.5 - 51.1 %) 29.1 Monocytes % (1.7 - 9.3 %) 8.6 Eosinophils % (0 - 5 %) 6.8 H Basophils % (0.0 - 2.0 %) 0.7 Absolute Granulocytes (1.4 - 6.5 /CUMM) 4.9 Absolute Lymphocytes (1.2 - 3.4 /CUMM) 2.6 Absolute Monocytes (0.10 - 0.60 /CUMM) 0.8 H Absolute Eosinophils (0.0 - 0.7 /CUMM) 0.6 Absolute Basophils (0.0 - 0.2 /CUMM) 0.1 PUBS MCHC (33.0 - 37.0 G/DL) Pending 32.1 L Serology Hep Bs Antigen Pending Hep Bs Antibody Pending 03/06 03/06 03/06 03/06 1930 0940 0600 0140 Chemistry Sodium Cancelled Potassium Cancelled Chloride Cancelled Carbon Dioxide Cancelled Anion Gap Cancelled BUN Cancelled Creatinine Cancelled BUN/Creatinine Ratio Cancelled Coagulation APTT (25 - 37 SEC) 78 H 60 H > 120 *H Hematology CBC w Diff Cancelled WBC Cancelled RBC Cancelled Hgb Cancelled Hct Cancelled MCV Cancelled MCH Cancelled RDW Cancelled Plt Count Cancelled MPV Cancelled PUBS MCHC Cancelled
[2017-03-08 10:29] LABS: PTT 71 SEC (25-37)
--- NOTE | 2017-03-08 10:35 | NUR ---
NURSING NOTE: AM PTT DRAWN BY OIL LEASE OPERATOR VIA PIVO PER NIGHT RN REPORT; PER LAB ? OF INTEGRITY OF SPECIMIN; REDRAWN AT 0950AM IN DIALYSIS, PTT 71; THERAPUTIC, NEXT PTT ORDERED FOR 2150PM 03/08/17. PT REMAINS IN DIALYSIS AT THIS TIME.
--- NOTE | 2017-03-08 11:15 | NUR ---
NURSING NOTE: HEPARIN GTT DCD AT THIS TIME PER MD ORDER; PT REMAINS IN DILAYSIS, TO GO TO IR AROUND 1330PM FOR RIJ ASHLEY CATH REMOVAL. PT UPDATED.
[2017-03-08 13:10] VITALS: BP 170/100
--- NOTE | 2017-03-08 13:10 | NUR ---
NURSING NOTE: PT BACK TO FLOOR VIA BED WITH DISTRIBUTION FROM DIALYSIS. PT AWAKE, A/OX3, BP 170/100, HR 82, PT C/O PAIN TO L ARM; PREV DVT SITE. MD MIXON CALLED AND AWARE, WILL GIVE MEDS AND IV ANTIBX, NO FURTEHR ORDERS AT THIS TIME. NEEDS IN REACH, LUNCH AND BREAKFAST TRAY HELD FOR IR PROCEDURE.
--- NOTE | 2017-03-08 13:50 | NUR ---
NURSING NOTE: PT LEFT FLOOR VIA STRETCHER WITH DISTIRBUTION FOR IR TO HAVE R IJ ASHLEY CATH REMOVED. PT AWAKE, A/OX3, ROOM AIR, MEDICATED FOR PAIN PREVIOUSLY. IV ANTIBX INFUSING; SITE PATENT WITHOUT REDNESS OR EDEMA. TICEKT TO RIDE COMPLETE, IR NURSE MADE AWARE OF PTS VITALS. PREPROCEDURE CHECKLIST COMPLETE, CHART AND STAMPER SENT.
--- NOTE | 2017-03-08 16:08 | PN- Cardiology ---
Subjective Subjective: The patient reports that she is feeling well. She notes recent fatigue. No chest pain. No shortness of breath. No palpitations. Objective Vital Signs and I&Os Vital Signs Date Time Temp Pulse Resp B/P B/P Pulse O2 O2 Flow FiO2 Mean Ox Delivery Rate 03/08 1329 170/100 03/08 1310 98.0 82 20 170/100 98 Room Air 03/08 0716 97.8 67 20 158/86 94 Room Air 03/07 2218 98.1 68 18 160/80 96 Room Air 03/07 2217 68 160/80 03/07 2216 68 160/80 Intake & Output 03/08 1600 03/08 0800 03/08 0000 03/07 1600 03/07 0800 03/07 0000 Intake Total 232 444 591 350 200 650 Output Total 0 0 Balance 232 444 591 350 200 650 Intake, IV 192 204 200 200 Intake, Oral 40 240 591 150 650 Number 0 0 0 Bowel Movements Output, Urine 0 0 Patient 152 lb 153 lb 154 lb Weight Weight Standing Scale Chair scale Measurement Method Physical Exam: Gen: The patient is in no acute distress HEENT: Normal nose, ears, and oropharynx. Pupils equal bilaterally. Conjunctiva normal. Neck: Supple with no JVD, no masses, and no thyromegaly Lungs: Decreased breath sounds with normal respiratory effort Heart: RRR, S1, S2, no murmurs. 1+ peripheral edema, 1+ pulses in the lower extremities bilaterally Abdomen: Soft, nontender, no masses. No hepatomegaly. No splenomegaly Extremities: No clubbing or cyanosis. Normal muscle strength in the upper and lower extremities Skin: Normal skin turgor with no skin ulcers or lesions noted. Current Medications: Current Medications Sig/Bryan Start time Last Medication Dose Route Stop Time Status Admin Acetaminophen 650 MG .STK-MED ONE 03/07 2154 DC PO 03/07 215 Acetaminophen 650 MG Q6P PRN 03/04 011 AC PO Acetaminophen/ 1 TAB Q6P PRN 03/04 011 AC Hydrocodone Bitart PO Alprazolam 0.5 MG DAILY NEEDED PRN 03/04 0145 AC 03/07 PO 03/11 0144 2217 Calcium 600 MG BID 03/04 1000 AC 03/08 PO 1329 Cefazolin Sodium 1,500 MG MoWeFr 03/08 0900 AC 03/08 Sodium Chloride 100 ML IV 1328 Cefazolin Sodium 1,500 MG .[MWF DIALYSIS] 03/08 0800 CAN IV Clonidine 3 PAT ONCE A WEEK 03/05 1115 AC 03/05 TOP 1333 Heparin Sodium 25,000 UNIT Q24H 03/08 1545 AC (Porcine) IV Sodium Chloride 500 ML Heparin Sodium 25,000 UNIT Q24H 03/05 1330 DC 03/08 (Porcine) IV 0815 Sodium Chloride 500 ML Hydralazine HCl 100 MG TID 03/04 1045 AC 03/08 PO 1329 Hydromorphone HCl 0.4 MG ONCE ONE 03/08 1545 DC IV 03/08 1546 Hydromorphone HCl 1 MG Q6-PRN PRN 03/06 1845 AC 03/08 IV 1328 Labetalol HCl 200 MG BID 03/05 2200 AC 03/08 PO 1329 Losartan Potassium 100 MG DAILY 03/04 1045 AC 03/08 PO 1329 Mupirocin 1 UDAY TIDPRN PRN 03/04 0145 DC TOP Nifedipine 30 MG DAILY 03/07 1000 AC 03/08 PO 1329 Omeprazole 20 MG 0700,1600 /08 0700 AC 03/08 PO 0600 Ondansetron HCl 4 MG Q6P PRN 03/04 1015 AC 03/05 IV 0559 Vancomycin HCl See Dose MoWeFr PRN 03/05 1500 DC Insts (1) IV Dose Instructions: (1)Vancomycin HCl: DOSE BASED ON RANDOM VANCO LEVELS ON DIALYSIS DAYS Results Last 48 Hrs of Labs/Mics: Laboratory Tests 03/08/17 0950: APTT 71 H 03/08/17 0627: Anion Gap 10, Estimated GFR 7 L, BUN/Creatinine Ratio 3.7 L, Glucose 88, Calcium 8.7, Total Beta HCG NEGATIVE, CBC w Diff NO MAN DIFF REQ, RBC 2.68 L, MCV 91.7, MCH 29.9, RDW 17.1 H, MPV 9.0, Gran % 58.1, Lymphocytes % 27.1, Monocytes % 8.5, Eosinophils % 5.6 H, Basophils % 0.7, Absolute Granulocytes 5.5, Absolute Lymphocytes 2.6, Absolute Monocytes 0.8 H, Absolute Eosinophils 0.5, Absolute Basophils 0.1, PUBS MCHC 32.6 L, Hep Bs Antigen NONREACTIVE, Hep Bs Antibody NONREACTIVE 03/07/171946: APTT 90 H 03/07/17 1010: APTT 98 H 03/07/17 0750: Anion Gap 7, Estimated GFR 9 L, BUN/Creatinine Ratio 3.5 L, CBC w Diff NO MAN DIFF REQ, RBC 2.73 L, MCV 92.1, MCH 29.6, RDW 16.5 H, MPV 8.8, Gran % 54.8, Lymphocytes % 29.1, Monocytes % 8.6, Eosinophils % 6.8 H, Basophils % 0.7, Absolute Granulocytes 4.9, Absolute Lymphocytes 2.6, Absolute Monocytes 0.8 H, Absolute Eosinophils 0.6, Absolute Basophils 0.1, PUBS MCHC 32.1 L 03/06/171929: APTT 78 H Recent Imaging Studies: 1. Aortic sclerosis is present with no valvular stenosis or insufficiency. 2. Thickening and calcification of the mitral leaflets is present with moderate anular calcification and mitral insufficiency which appears to be mild to moderate in severity. Moderate left atrial enlargement is noted. 3. A very small pericardial effusion is present. 4. A moderate sized left pleural effusion is present. 5. The left ventricular chamber size is normal with severe concentric LVH and a normal ejection with diastolic dysfunction and no resting wall motion abnormalities. 6. Enlargement of the right heart chambers is noted with tricuspid insufficiency which appears to be mild in severity. Severe pulmonary hypertension is present with an estimated RV systolic pressure of at least 66 mmHg. 7. There are no obvious vegetative lesions identified. If clinically indicated, a AARON would better assess for potential vegetative lesions. Assessment/Plan Assessment/Plan Assessment: 1. Hypertension, not fully controlled 2. Sepsis with Blood culture positive for Staph aureus secondary to possible IJ line infection. 3. ESRD on HD with history of prior PD 4. History of CVA 5. History of severe atherosclerotic thoracic aorta vascular disease. 6. Left internal jugular vein thrombosis 7. No vegetation seen on transthoracic echo Plan: * Continue antibiotics as per ID * Dialysis catheter to be removed today, and replaced * Will arrange AARON to rule out endocarditis. * Keep NPO after midnight in case AARON is done tomorrow Continue telemetry? Not applicable
[2017-03-08 16:30] VITALS: BP 180/90
--- NOTE | 2017-03-08 16:31 | INTERVENTIONAL RADIOLOGY RPT ---
Implanted peripheral line catheter removal INTERVENTIONAL RADIOLOGIST: Lefty Campbell M.D. ACCESS: Right chest wall. MEDICATIONS: none COMPLICATIONS: none CONTRAST: none INFORMED CONSENT: Informed consent was obtained from the patient just prior to the examination. Risks and benefits were explained. DESCRIPTION: The right chest wall was prepped and draped. The retention sutures on the patient's implanted low-lying with cut and removed. The cuff of the implanted catheter was subsequently freed from the ingrowth tissues using gentle traction. Subsequently, the catheter was removed in its entirety. A sterile dressing was applied to the catheter entry site. The patient tolerated the procedure well. The catheter tip was sent for culture. IMPRESSION: Successful removal of implanted right-sided tunneled hemodialysis catheter.
--- NOTE | 2017-03-08 18:26 | PN- Infect Dx ---
Subjective Subjective: Afebrile without complaints Objective Last 24 Hrs of Vital Signs/I&O Vital Signs Date Time Temp Pulse Resp B/P B/P Pulse O2 O2 Flow FiO2 Mean Ox Delivery Rate 03/08 1659 60 180/90 03/08 1329 170/100 03/08 1310 98.0 82 20 170/100 98 Room Air 03/08 0716 97.8 67 20 158/86 94 Room Air 03/07 2218 98.1 68 18 160/80 96 Room Air 03/07 2217 68 160/80 03/07 2216 68 160/80 Intake & Output 03/08 1600 03/08 0800 03/08 0000 Intake Total 232 444 591 Output Total 0 0 Balance 232 444 591 Intake, IV 192 204 Intake, Oral 40 240 591 Number 0 0 Bowel Movements Output, Urine 0 0 Patient 152 lb 153 lb Weight Weight Standing Scale Measurement Method Physical Exam Other Physical Findings: She appears more comfortable in no acute distress Lungs decreased breath sounds both bases Heart regular rhythm with a 2/6 systolic ejection murmur Abdomen is soft, nontender with positive bowel sounds; Tenckhoff catheter remains in place Extremities no cyanosis, clubbing or edema Results Last 24 Hours of Lab Results: Laboratory Tests 03/08 03/08 03/07 0950 0622 1947 Chemistry Sodium (137 - 145 mmol/L) 133 L Potassium (3.5 - 5.1 mmol/L) 4.4 Chloride (98 - 107 mmol/L) 99 Carbon Dioxide (22 - 30 mmol/L) 24 Anion Gap (5 - 16) 10 BUN (7 - 17 mg/dL) 26 H Creatinine (0.5 - 1.0 mg/dL) 7.1 *H Estimated GFR (>60 ml/min) 7 L BUN/Creatinine Ratio (7 - 25 %) 3.7 L Glucose (65 - 99 mg/dL) 88 Calcium (8.4 - 10.2 mg/dL) 8.7 Total Beta HCG (NEGATIVE) NEGATIVE Coagulation APTT (25 - 37 SEC) 71 H 90 H Hematology CBC w Diff NO MAN DIFF REQ WBC (4.8 - 10.8 /CUMM) 9.4 RBC (4.20 - 5.40 /CUMM) 2.68 L Hgb (12.0 - 16.0 G/DL) 8.0 L Hct (37 - 47 %) 24.6 L MCV (81.0 - 99.0 FL) 91.7 MCH (27.0 - 31.0 PG) 29.9 RDW (11.5 - 14.5 %) 17.1 H Plt Count (130 - 400 /CUMM) 267 MPV (7.4 - 10.4 FL) 9.0 Gran % (42.2 - 75.2 %) 58.1 Lymphocytes % (20.5 - 51.1 %) 27.1 Monocytes % (1.7 - 9.3 %) 8.5 Eosinophils % (0 - 5 %) 5.6 H Basophils % (0.0 - 2.0 %) 0.7 Absolute Granulocytes (1.4 - 6.5 /CUMM) 5.5 Absolute Lymphocytes (1.2 - 3.4 /CUMM) 2.6 Absolute Monocytes (0.10 - 0.60 /CUMM) 0.8 H Absolute Eosinophils (0.0 - 0.7 /CUMM) 0.5 Absolute Basophils (0.0 - 0.2 /CUMM) 0.1 PUBS MCHC (33.0 - 37.0 G/DL) 32.6 L Serology Hep Bs Antigen (NONREACTIVE) NONREACTIVE Hep Bs Antibody (NONREACTIVE) NONREACTIVE Last 24 Hours of Ashwin Results: Blood culture March 05 positive for Staph aureus sensitive to Oxacillin Blood cultures March 07 negative so far Glenroy catheter tip culture March 08 pending Assessment/Plan Impression: Clinically improved with temperatures and white blood cell count normal now on Cefazolin for Staph aureus sepsis presumably secondary to an infected right IJ Glenroy catheter, which was placed 2 weeks prior to admission and removed earlier today. She will need replacement of the catheter prior to her next dialysis, which, ideally, should be deferred for at least 3 days. Have discussed possibility of AARON with Cardiology, though this is unlikely to change her management as she will likely require a 4 to 6 week course of antibiotics for the Staph aureus sepsis. Suggestion: 1. Follow-up culture of the Glenroy catheter tip 2. Await possible AARON in the a.m. 3. Will discuss timing of the replacement of the Glenroy catheter with Renal 4. Continue Cefazolin 1.5 g IV after each dialysis
[2017-03-08 18:38] VITALS: BP 160/80
[2017-03-08 22:05] VITALS: BP 150/90
[2017-03-08 23:45] LABS: PTT > 120 SEC (25-37)
--- NOTE | 2017-03-09 00:49 | NUR ---
ALERT AND ORIENTED X 3. ON ROOM AIR. DENIES SHORTNESS OF BREATH VITAL SIGNS STABLE. DENIES CHEST PAIN. + PULSES. DENIES NUMBNESS/TINGLING MEDICATED FOR PAIN. DSG TO R CHEST IS C/D/I. STEADY GAIT L ABDOMINAL PERITONEAL CATH NOT ACCESSED. 2350 [employer] OPERATOR NOTIFIED OF PTT. HEPARIN DRIP STOPPED AT THIS TIME PER PROTOCOL
--- NOTE | 2017-03-09 02:41 | NUR ---
NURSING NOTE: PATIENT C/O ANXIETY ABOUT UP COMING PROCEDURES AT THIS TIME. A&OX3, VSS, SITTING UP IN BED. PATIENT REQUESTED O2 FOR COMFORT. PLACED ON 2L NC AT THIS TIME. 108 IMGE MADE AWARE. WILL CONTINUE TO MONITOR.
--- NOTE | 2017-03-09 06:58 | PN- Housestaff ---
See Addendum Subjective Follow-up For: ESRD on HD Sepsis Uncontrolled HTN Subjective: Patient seen and examined at bedside this AM. She is laying comfortably in bed in no acute distress. She continues to endorse pain at the site of HD cathter removal. She denies fever, chest pain, shortness of breath, abdominal pain or nausea. She reports she has been NPO at midnight as we have scheduled possible AARON today. Patient remains afebrile on IV cefazolin. Review of Systems Constitutional: Reports: chills. Denies: fever, weakness. EENTM: Denies: visual changes, hearing changes, nasal congestion. Cardiovascular: Denies: chest pain, palpitations. Respiratory: Denies: cough, short of breath, sputum production. Gastrointestinal: Denies: abdominal pain, nausea, vomiting. Genitourinary: Denies: pain. Musculoskeletal: Reports: neck pain (HD catheter removal site). Skin: Denies: erythema, rash. Neurological/Psychological: Denies: confusion, headache. Hematologic/Endocrine: Denies: bruising, bleeding. Immunologic/Allergic: Denies: splenectomy. Objective Last 24 Hrs of Vital Signs/I&O Vital Signs Date Time Temp Pulse Resp B/P B/P Pulse O2 O2 Flow FiO2 Mean Ox Delivery Rate 03/09 0735 64 188/100 03/09 0734 64 188/100 03/09 0734 64 188/100 03/09 0733 64 188/100 03/09 0726 97.7 65 20 188/100 92 Room Air 03/08 2205 98.8 74 19 150/90 98 Room Air 03/08 2130 74 150/90 03/08 2130 74 150/90 03/08 1838 98.6 70 18 160/80 97 Room Air 03/08 1659 60 180/90 03/08 1630 98.2 60 20 180/90 96 Room Air 03/08 1329 170/100 03/08 1310 98.0 82 20 170/100 98 Room Air Intake & Output 03/09 1600 03/09 0800 03/09 0000 Intake Total 165 300 Output Total 0 Balance 165 300 Intake, IV 165 Intake, Oral 0 300 Number 0 Bowel Movements Output, Urine 0 Patient 156 lb Weight Physical Exam General Appearance: Alert, Oriented X3, Cooperative, No Acute Distress Skin: No Significant Lesion Skin Temp/Moisture Exam: Warm/Dry HEENT: Atraumatic, PERRLA, EOMI, Mucous Membr. moist/pink Neck: Supple, No JVD Cardiovascular: Regular Rate, Normal S1, Normal S2 Lungs: Normal Air Movement Abdomen: Normal Bowel Sounds, Soft, No Tenderness, No Masses Neurological: Normal Speech, Normal Tone Extremities: No Clubbing, No Cyanosis, Trace pedal edema Vascular: Pulses Symmetrical Current Medications: Current Medications Sig/Bryan Start time Last Medication Dose Route Stop Time Status Admin Acetaminophen 650 MG Q6P PRN 03/04 0115 AC PO Acetaminophen/ 1 TAB Q6P PRN 03/04 0115 AC Hydrocodone Bitart PO Alprazolam 0.5 MG DAILY NEEDED PRN 03/04 0145 AC 03/08 PO 03/11 0144 2351 Calcium 600 MG BID 03/04 1000 AC 03/08 PO 2130 Cefazolin Sodium 1,500 MG MoWeFr 03/08 0900 03/08 Sodium Chloride 100 ML IV 1328 Clonidine 3 PAT ONCE A WEEK 03/05 1115 03/05 TOP 1333 Heparin Sodium 25,000 UNIT Q24H 03/08 1545 AC 03/08 (Porcine) IV 1636 Sodium Chloride 500 ML Heparin Sodium 25,000 UNIT Q24H / 1330 DC 03/08 (Porcine) IV 0815 Sodium Chloride 500 ML Hydralazine HCl 100 MG TID 03/04 1045 AC 03/09 PO 0735 Hydromorphone HCl 1 MG ONCE ONE 03/08 2130 DC / IV 03/08 2131 2130 Hydromorphone HCl 0.4 MG ONCE ONE 03/08 1545 DC 03/08 IV 03/08 1546 1550 Hydromorphone HCl 1 MG Q6-PRN PRN 03/06 1845 03/09 IV 0735 Labetalol HCl 200 MG BID 03/05 2200 AC 03/09 PO 0734 Losartan Potassium 100 MG DAILY 03/04 1045 AC 03/09 PO 0734 Nifedipine 30 MG DAILY 03/07 1000 AC 03/09 PO 0733 Omeprazole 20 MG 0700,1600 06/08 0700 AC 03/09 PO 0556 Ondansetron HCl 4 MG Q6P PRN 03/04 1015 03/05 IV 0559 Last 24 Hrs of Lab/Ashwin Results Last 24 Hrs of Labs/Mics: Laboratory Tests 03/09/17 0655: Anion Gap 8, Estimated GFR 11 L, BUN/Creatinine Ratio 2.8 L, APTT 63 H, CBC w Diff NO MAN DIFF REQ, RBC 2.67 L, MCV 90.4, MCH 29.7, RDW 16.2 H, MPV 9.1, Gran % 50.4, Lymphocytes % 33.2, Monocytes % 9.8 H, Eosinophils % 6.4 H, Basophils % 0.2, Absolute Granulocytes 3.9, Absolute Lymphocytes 2.6, Absolute Monocytes 0.8 H, Absolute Eosinophils 0.5, Absolute Basophils 0, PUBS MCHC 32.8 L 03/09/17 0500: Sodium Cancelled, Potassium Cancelled, Chloride Cancelled, Carbon Dioxide Cancelled, Anion Gap Cancelled, BUN Cancelled, Creatinine Cancelled, BUN/ Creatinine Ratio Cancelled, CBC w Diff Cancelled, WBC Cancelled, RBC Cancelled, Hgb Cancelled, Hct Cancelled, MCV Cancelled, MCH Cancelled, RDW Cancelled, Plt Count Cancelled, MPV Cancelled, PUBS MCHC Cancelled 03/08/17 2243: APTT > 120 *H 03/08/17 0950: APTT 71 H Microbiology 03/08 1435 CATH TIP: Catheter Tip Culture - RES Orders Radiology Findings: DESCRIPTION: The right chest wall was prepped and draped. The retention sutures on the patient's implanted low-lying with cut and removed. The cuff of the implanted catheter was subsequently freed from the ingrowth tissues using gentle traction. Subsequently, the catheter was removed in its entirety. A sterile dressing was applied to the catheter entry site. The patient tolerated the procedure well. The catheter tip was sent for culture. IMPRESSION: Successful removal of implanted right-sided tunneled hemodialysis catheter. Assessment/Plan Assessment: Ms. Wilson is a 31 y/o F with PMHx of ESRD on HD, resistant HTN with multiple hospitalizations for hypertensive urgency and previous ischemic and hemorrhagic strokes with residual minimal left-sided weakness and dysarthria who presents with fever and chills. #Sepsis - resolved Patient met SIRS criteria for sepsis on admission with fever to 102.6 and leukocytosis with WBC count of 15.0. Etiology is most likely the RIJ catheter with erythema and tenderness at the site. Pneumonia is unlikely in the absence of respiratory symptoms and consolidation on CXR. Patient is anuric at baseline thus urinary source can be ruled out. S/p 1 dose of vancomycin and ceftazidime in the ED. History of MRSA sepsis attributed to an infected port-a-cath in September 2014 treated at [facility]. * ID & nephro consult appreciated - RIJ HD catheter removed on 03/08 * Continue IV heparin in anticipation of HD catheter replacement in near future (Wednesday or ) after BC show no growth x 72 hours * F/U culture of the tip of the Glenroy cath at [facility] site upon removal (NGTD, <15 colonies) * 1 blood culture bottle from 03/05 growing staph aureus sensitive to cefazolin, BCx2 rom 03/07 have NGTD * Continue cefazolin 1.5 g IV and continue after each dialysis * AARON scheduled for today, follow up results * Continue to follow up ID recommendations in regards to antibiotic coverage and duration of therapy #ESRD on HD: Switched from peritoneal dialysis to HD one month ago due to noncompliance issues. * Nephrology consulted. Appreciate their recs. * Continue HD per nephro. * Removed HD 03/08 after HD, consider HD replacement on Wed/ based on both AARON results and most recent set of blood cultures. #Resistant HTN: Multiple hospitalizations for hypertensive urgency felt to be 2/ 2 medication and dialysis noncompliance. Follows with manager data warehousing Dr. Mariee. Epveb-ya-gsjnphoiv meds include amlodipine 10 mg PO daily, clonidine patch, hydralazine 100 mg PO TID, labetalol 300 mg PO BID and losartan 100 mg PO daily. BP was elevated to 220/1220 on initial presentation but later came down to 120/ 70. Rapid drop in BP is concerning for impending septic shock. CT Head with no acute intracranial findings. Most recent ECHO in January 2017 with normal LVEF estimated at 65-70% and severe concentric hypertrophy with diastolic dysfunction. * Cardiology consult appreciated * Continue clonidine patch TTS-3 * Cardiology recently discontinued amlodipine and added nifedipine ER 30 mg daily; if BP becomes elevated, consider increasing to 60 mg ER daily * All home antihypertensives resumed (though labetolol at 200 mg BID instead of 300 mg BID and amlodipine recently discontinued as noted above) #Left IJ thrombosis: Developed two weeks ago at left IJ hemodialysis catheter site, followed by subsequent removal of left IJ catheter and placement of right IJ catheter. * Eliquis is on hold in the setting of possible surgical intervention * Continue heparin drip per protocol, discontinue few hours before anticipated procedure #Duodenitis/gastritis: * Continue nwbof-zo-rwivhcpno omeprazole 20 mg PO BID. #Anxiety: * Continue kvsod-xr-meyisbmpp Xanax 0.5 mg PO daily PRN. Diet: Renal dialysis DVT PPx: Heparin and ALPs CODE: FULL Problem List: 1. Sepsis 2. ESRD on hemodialysis 3. Pulmonary venous congestion 4. Uncontrolled hypertension 5. Edema Pain Ratin Pain Location: Right neck where HD catheter was removed Pain Goal: Pain 4 or less Pain Plan: Dilaudid 1 mg IV Q6P for severe pain Vicodin for moderate pain Tylenol for mild pain Tomorrow's Labs & Rationales: CBC (pre-op for possible HD cathter placement, heparin gtt) BEP (with dialysis) PTT (for heparin drip)
[2017-03-09 07:26] VITALS: BP 188/100
--- NOTE | 2017-03-09 07:40 | NUR ---
NURSING NOTE: BP 180/100, HR 66. ALL AM BP MEDS GIVEN WITH SMALL SIP OF WATER PER APURVA PRODUCTION CONTROLLER, WILL RECHECK BP IN 1 HOUR.
--- NOTE | 2017-03-09 07:40 | NUR ---
NURSING NOTE: AM BP 188/100, HR 66, ALL AM BP MEDS GIVEN AT THIS TIME WITH SIP OF WATER PER APURVA DWYER. WILL RECHECK IN 1 HOUR. PT DENIES DISTRESS, ALSO MEDICATED FOR 9/10 PAIN TO RIJ REMOVAL SITE. NEEDS IN REACH.
[2017-03-09 07:57] LABS: ABSOLUTE BASOPHIL COUNT 0 /CUMM (0.0-0.2); ABSOLUTE EOSINOPHIL COUNT 0.5 /CUMM (0.0-0.7); ABSOLUTE GRANULOCYTE CT 3.9 /CUMM (1.4-6.5); ABSOLUTE LYMPH COUNT 2.6 /CUMM (1.2-3.4); ABSOLUTE MONOCYTE COUNT 0.8 /CUMM (0.10-0.60); BASOPHIL % 0.2 % (0.0-2.0); EOSINOPHIL % 6.4 % (0-5); GRANULOCYTE % 50.4 % (42.2-75.2); HEMATOCRIT 24.2 % (37-47); MEAN CORPUSCULAR HGB 29.7 PG (27.0-31.0); MEAN CORPUSCULAR HGB CONC 32.8 G/DL (33.0-37.0); MEAN CORPUSCULAR VOLUME 90.4 FL (81.0-99.0); MEAN PLATELET VOLUME 9.1 FL (7.4-10.4); PLATELET COUNT 264 /CUMM (130-400); RBC DISTRIBUTION WIDTH 16.2 % (11.5-14.5); RED BLOOD CELL CT 2.67 /CUMM (4.20-5.40); WHITE BLOOD CELL COUNT 7.8 /CUMM (4.8-10.8)
[2017-03-09 08:37] LABS: PTT 63 SEC (25-37)
[2017-03-09 09:06] VITALS: BP 148/90
--- NOTE | 2017-03-09 10:14 | NUR ---
NURSING NOTE: PT LEFT FLOOR VIA STRETCHER WITH DISTRIBUTION FOR AARON, PT NPO, A/OX3, ROOM AIR, HEPARIN GTT PER MD ORDER. PRE PROCEDURE CHECKLIST SENT, AWAIT RETURN TO FLOOR.
--- NOTE | 2017-03-09 12:22 | PN- Cardiology ---
PATEL,[facility] 03/09/17 1222: Subjective Subjective: Patient seen and examined, sitting in the bed comfortable with no acute distress. I saw her after she came back from SCOOTER, she report throat itching after procedure. She also report pain at the site of eloisa cath. which removed yesterday. Denies any chest pain, SOB, palpitation, fever, chills. Vitals stable Review of Systems Constitutional: Reports: no symptoms. EENTM: Reports: no symptoms. Cardiovascular: Reports: no symptoms. Respiratory: Reports: no symptoms. Gastrointestinal: Reports: no symptoms. Genitourinary: Reports: no symptoms. Musculoskeletal: Reports: see HPI. Skin: Reports: no symptoms. Neurological/Psychological: Reports: no symptoms. Hematologic/Endocrine: Reports: no symptoms. All Other Systems: Reviewed and Negative Objective Vital Signs and I&Os Vital Signs Date Time Temp Pulse Resp B/P B/P Pulse O2 O2 Flow FiO2 Mean Ox Delivery Rate 03/09 0906 97.7 68 20 148/90 97 Room Air 03/09 0735 64 188/100 03/09 0734 64 188/100 03/09 0734 64 188/100 03/09 0733 64 188/100 03/09 0726 97.7 65 20 188/100 92 Room Air 03/08 2205 98.8 74 19 150/90 98 Room Air 03/08 2130 74 150/90 03/08 2130 74 150/90 03/08 1838 98.6 70 18 160/80 97 Room Air 03/08 1659 60 180/90 03/08 1630 98.2 60 20 180/90 96 Room Air 03/08 1329 170/100 03/08 1310 98.0 82 20 170/100 98 Room Air Intake & Output 03/09 1600 03/09 0800 03/09 0000 03/08 1600 03/08 0800 03/08 0000 Intake Total 165 300 232 444 591 Output Total 0 0 0 Balance 165 300 232 444 591 Intake, IV 165 192 204 Intake, Oral 0 300 40 240 591 Number 0 0 0 Bowel Movements Output, Urine 0 0 0 Patient 156 lb 152 lb 153 lb Weight Weight Standing Scale Measurement Method Physical Exam General Appearance: well developed/nourished, no apparent distress, alert, awake , comfortable Head: atraumatic, normal appearance Respiratory: normal breath sounds, chest non-tender, no respiratory distress Cardiovascular: regular rate/rhythm, edema, normal peripheral pulses Abdomen: normal bowel sounds, soft, non-tender Extremities: no edema Current Medications: Current Medications Sig/Bryan Start time Last Medication Dose Route Stop Time Status Admin Acetaminophen 650 MG Q6P PRN 03/04 0115 AC PO Acetaminophen/ 1 TAB Q6P PRN 03/04 0115 AC Hydrocodone Bitart PO Alprazolam 0.5 MG DAILY NEEDED PRN 03/04 0145 AC 03/08 PO 03/11 0144 2351 Calcium 600 MG BID 03/04 1000 AC 03/08 PO 2130 Cefazolin Sodium 1,500 MG MoWeFr 03/08 0900 AC 03/08 Sodium Chloride 100 ML IV 1328 Clonidine 3 PAT ONCE A WEEK 03/05 1115 03/05 TOP 1333 Heparin Sodium 25,000 UNIT Q24H 03/08 1545 AC 03/08 (Porcine) IV 1636 Sodium Chloride 500 ML Hydralazine HCl 100 MG TID 03/04 1045 AC 03/09 PO 0735 Hydromorphone HCl 1 MG ONCE ONE 03/08 2130 DC 03/08 IV 03/08 2131 2130 Hydromorphone HCl 0.4 MG ONCE ONE 03/08 1545 DC 03/08 IV 03/08 1546 1550 Hydromorphone HCl 1 MG Q6-PRN PRN 03/06 1845 AC 03/09 IV 0735 Labetalol HCl 200 MG BID 03/05 2200 AC 03/09 PO 0734 Lidocaine 0 .STK-MED ONE 03/09 0931 DC TOP Losartan Potassium 100 MG DAILY 03/04 1045 AC 03/09 PO 0734 Nifedipine 30 MG DAILY 03/07 1000 AC 03/09 PO 0733 Omeprazole 20 MG 0700,1600 /08 0700 AC 03/09 PO 0556 Ondansetron HCl 4 MG Q6P PRN 03/04 1015 AC 03/05 IV 0559 Results Last 48 Hrs of Labs/Mics: Laboratory Tests 03/09/17 0655: Anion Gap 8, Estimated GFR 11 L, BUN/Creatinine Ratio 2.8 L, APTT 63 H, CBC w Diff NO MAN DIFF REQ, RBC 2.67 L, MCV 90.4, MCH 29.7, RDW 16.2 H, MPV 9.1, Gran % 50.4, Lymphocytes % 33.2, Monocytes % 9.8 H, Eosinophils % 6.4 H, Basophils % 0.2, Absolute Granulocytes 3.9, Absolute Lymphocytes 2.6, Absolute Monocytes 0.8 H, Absolute Eosinophils 0.5, Absolute Basophils 0, PUBS MCHC 32.8 L 03/09/17 0500: Sodium Cancelled, Potassium Cancelled, Chloride Cancelled, Carbon Dioxide Cancelled, Anion Gap Cancelled, BUN Cancelled, Creatinine Cancelled, BUN/ Creatinine Ratio Cancelled, CBC w Diff Cancelled, WBC Cancelled, RBC Cancelled, Hgb Cancelled, Hct Cancelled, MCV Cancelled, MCH Cancelled, RDW Cancelled, Plt Count Cancelled, MPV Cancelled, PUBS MCHC Cancelled 03/08/17 2243: APTT > 120 *H 03/08/17 0950: APTT 71 H 03/08/17 0742: Sodium Cancelled, Potassium Cancelled, Chloride Cancelled, Carbon Dioxide Cancelled, Anion Gap Cancelled, BUN Cancelled, Creatinine Cancelled, BUN/ Creatinine Ratio Cancelled, CBC w Diff Cancelled, WBC Cancelled, RBC Cancelled, Hgb Cancelled, Hct Cancelled, MCV Cancelled, MCH Cancelled, RDW Cancelled, Plt Count Cancelled, MPV Cancelled, PUBS MCHC Cancelled 03/08/17 0627: Anion Gap 10, Estimated GFR 7 L, BUN/Creatinine Ratio 3.7 L, Glucose 88, Calcium 8.7, Total Beta HCG NEGATIVE, CBC w Diff NO MAN DIFF REQ, RBC 2.68 L, MCV 91.7, MCH 29.9, RDW 17.1 H, MPV 9.0, Gran % 58.1, Lymphocytes % 27.1, Monocytes % 8.5, Eosinophils % 5.6 H, Basophils % 0.7, Absolute Granulocytes 5.5, Absolute Lymphocytes 2.6, Absolute Monocytes 0.8 H, Absolute Eosinophils 0.5, Absolute Basophils 0.1, PUBS MCHC 32.6 L, Hep Bs Antigen NONREACTIVE, Hep Bs Antibody NONREACTIVE 03/07/177: APTT 90 H Assessment/Plan Assessment/Plan Assessment: 1. Hypertension, not fully controlled 2. Sepsis with Blood culture positive for Staph aureus secondary to possible IJ line infection. 3. ESRD on HD with history of prior PD 4. History of CVA 5. History of severe atherosclerotic thoracic aorta vascular disease. 6. Left internal jugular vein thrombosis 7. No vegetation seen on transthoracic echo Plan: * Continue antibiotics as per ID. * Eloisa cath removed yesterday, tip sent for culture. * Another dialysis cath. to be inserted tomorrow. She will got HD tomorrow after insertion of another cath. * SCOOTER done today which is negative for vegetation * On heparin gtt in anticipation of another eloisa cath. placement tomorrow * Continue current antihypertensive medications Continue telemetry? Not applicable Problem List: 1. HTN (hypertension) 2. Sepsis 3. ESRD on hemodialysis 4. Uncontrolled hypertension DANDRE CANTOR MD 03/09/17 2321: Attending MD Review Statement Attending Statement Attending MD Statement: examined this patient, agreed w/resident/PA/BASTING CLEANER, discussed with family, reviewed EMR data (avail), discussed w/nursing, reviewed images, amended to note Attending Assessment/Plan: the patient is comfortable. No cardiac complaints. No chest pain. No shortness of breath. No palpitations. Scooter was performed, and shows no evidence of vegetations Gen: The patient is in no acute distress HEENT: Normal nose, ears, and oropharynx. Pupils equal bilaterally. Conjunctiva normal. Neck: Supple with no JVD, no masses, and no thyromegaly Lungs: Decreased breath sounds with normal respiratory effort Heart: RRR, S1, S2, no murmurs. 1+ peripheral edema, 1+ pulses in the lower extremities bilaterally Abdomen: Soft, nontender, no masses. No hepatomegaly. No splenomegaly Extremities: No clubbing or cyanosis. Normal muscle strength in the upper and lower extremities Skin: Normal skin turgor with no skin ulcers or lesions noted. SCOOTER was performed that shows no evidence of vegetations or other evidence of endocarditis Assessment: 1. Hypertension, not fully controlled 2. Sepsis with Blood culture positive for Staph aureus secondary to possible IJ line infection. 3. ESRD on HD with history of prior PD 4. History of CVA 5. History of severe atherosclerotic thoracic aorta vascular disease. 6. Left internal jugular vein thrombosis 7. No vegetation seen on transthoracic echo Plan: * antibiotics as per Infectious Disease * continue current cardiac medications
[2017-03-09 13:24] VITALS: BP 150/78
--- NOTE | 2017-03-09 13:24 | NUR ---
NUSING NOTE: PT BACK TO FLOOR VIA STRETCHER WITH DISTRIBUTION FROM AARON, PT AWAKE, A/OX3, ROOM AIR, VITALS OBTAINED, HEPARIN GTT INFUSING; IV PATENT, NO REDNESS OR EDEMA NOTED. WILL MEDICATE FOR PAIN TO RIJ REMOVAL SITE.
--- NOTE | 2017-03-09 14:32 | NUR ---
[facility] SHIFT NOTE: PT REMAINS AWAKE, A/OX3, HAD AARON TODAY WHICH WAS NEGATIVE PER ATTENDING, PT EATING LUNCH AT THIS TIME, 1200ML FLU RESTRICTION, PT AWARE, HEPARIN GTT INFUSING VIA IV TO RFA; PT DIFFICULT STICK; SAIDA HAD TO USE THE ULTRASOUND MACHINE FOR CURRENT IV. HEPARIN GTT PTT THERAPEUTIC THIS AM; NEXT PTT AT 1900PM. DSG TO [facility] ASHLEY CATH REMOVAL SITE INTACT. LEFT PERITONEAL DIALYSIS CATH NOT BEING USED; DSG INTACT. PT TO BE NPO AFTER MIDNIGHT FOR ANOTHER ASHLEY CATH PLACEMENT TOMORROW AM THEN DILAYSIS TREATMENT AFTER THAT. PT AWARE. GENERALIZE EDEMA NOTED; LUE STILL WITH MILD EDEMA. NO REDNESS OR EDEMA NOTED TO CURRENT IV SITE, WILL GIVE REPORT TO NEXT SHIFT RN.
[2017-03-09 20:59] LABS: PTT 57 SEC (25-37)
--- NOTE | 2017-03-10 02:53 | NUR ---
NURSING NOTE: PATIENT HAS PTT ORDERED FOR 0315 WELL 0600 LABS, OKAY TO DRAW LABS TOGETHER AT 0315 PER MD IMGE 108.
[2017-03-10 03:43] LABS: ABSOLUTE BASOPHIL COUNT 0.1 /CUMM (0.0-0.2); ABSOLUTE EOSINOPHIL COUNT 0.8 /CUMM (0.0-0.7); ABSOLUTE GRANULOCYTE CT 5.7 /CUMM (1.4-6.5); ABSOLUTE LYMPH COUNT 2.8 /CUMM (1.2-3.4); ABSOLUTE MONOCYTE COUNT 0.7 /CUMM (0.10-0.60); BASOPHIL % 0.6 % (0.0-2.0); EOSINOPHIL % 7.5 % (0-5); HEMATOCRIT 25.5 % (37-47); MEAN CORPUSCULAR HGB 29.6 PG (27.0-31.0); MEAN CORPUSCULAR HGB CONC 32.5 G/DL (33.0-37.0); MEAN CORPUSCULAR VOLUME 91.1 FL (81.0-99.0); MEAN PLATELET VOLUME 8.9 FL (7.4-10.4); PLATELET COUNT 292 /CUMM (130-400); RBC DISTRIBUTION WIDTH 16.9 % (11.5-14.5)
[2017-03-10 03:49] LABS: PTT 68 SEC (25-37)
--- NOTE | 2017-03-10 04:06 | NUR ---
NURSING NOTE: HEPARIN GTT @ 23.1 ML/HR STOPPED AT THIS TIME PER MD ORDER FOR IR PROCEDURE IN MORNING. LAST PTT = 68. THERAPEUTIC, NO CHANGE TO PREVIOUS RATE PER PROTOCOL. NEXT PTT 03/10/17 @ 1515.
--- NOTE | 2017-03-10 04:26 | NUR ---
NURSING NOTE: CRITICAL LAB VALUE; PATIENTS CREATININE 6.2 AT THIS TIME. REPORTED TO MD AGUILAR 108.
[2017-03-10 05:10] LABS: PT 11.9 SEC (9.4-12.5)
[2017-03-10 06:28] VITALS: BP 180/102
--- NOTE | 2017-03-10 06:57 | PN- Housestaff ---
FLAVIA COTA,THI 03/10/17 0653: Subjective Follow-up For: ESRD on HD Sepsis from the catheter line Uncontrolled HTN Subjective: I saw and examined the patient today morning She went for catheter placement early in the morning. She reports extensive pain in the catheter insertion, received 2 extra doses of dilaudid. Overnight events are significant for oral benadryl for pain. Review of Systems Constitutional: Reports: see HPI. Objective Last 24 Hrs of Vital Signs/I&O Vital Signs Date Time Temp Pulse Resp B/P B/P Pulse O2 O2 Flow FiO2 Mean Ox Delivery Rate 03/10 0628 98.7 65 22 180/102 93 Room Air 03/10 0619 65 180/102 03/10 0618 65 180/102 03/10 0618 65 180/102 03/10 0618 65 180/102 03/09 2147 99.0 18 93 03/09 2126 76 182/90 03/09 2126 76 182/90 03/09 1556 60 174/80 03/09 1324 97.9 80 20 150/78 97 Room Air 03/09 0906 97.7 68 20 148/90 97 Room Air 03/09 0735 64 188/100 03/09 0734 64 188/100 03/09 0734 64 188/100 03/09 0733 64 188/100 03/09 0726 97.7 65 20 188/100 92 Room Air Intake & Output 03/10 0800 03/10 0000 03/09 1600 Intake Total 135.5 568 402.4 Output Total 0 0 0 Balance 135.5 568 402.4 Intake, IV 135.5 168 162.4 Intake, Oral 0 400 240 Number 0 0 0 Bowel Movements Output, Urine 0 0 0 Patient 70.534 kg Weight Weight Chair scale Measurement Method Physical Exam General Appearance: Alert, Oriented X3, Moderate Distress Skin: No Rashes Skin Temp/Moisture Exam: Warm/Dry HEENT: Atraumatic, PERRLA, EOMI Neck: Supple, No JVD Cardiovascular: Normal S1, Normal S2 Lungs: Normal Air Movement Abdomen: Normal Bowel Sounds, Soft, No Tenderness Neurological: Normal Speech, Normal Tone, Sensation Intact Extremities: No Clubbing, No Cyanosis, 1-2+ pedal edema present Vascular: Pulses Symmetrical Current Medications: Current Medications Sig/Bryan Start time Last Medication Dose Route Stop Time Status Admin Acetaminophen 650 MG .STK-MED ONE 03/09 1507 DC PO 03/09 1508 Acetaminophen 650 MG Q6P PRN 03/04 0115 AC PO Acetaminophen/ 1 TAB Q6P PRN 03/04 0115 AC Hydrocodone Bitart PO Alprazolam 0.5 MG DAILY NEEDED PRN 03/04 0145 AC 03/08 PO 03/11 0144 2351 Calcium 600 MG BID 03/04 1000 AC 03/09 PO 2126 Cefazolin Sodium 1,500 MG MoWeFr 03/08 0900 AC 03/08 Sodium Chloride 100 ML IV 1328 Clonidine 3 PAT ONCE A WEEK 03/05 1115 AC 03/05 TOP 1333 Diphenhydramine HCl 25 MG ONCE ONE 03/09 2100 DC 03/09 PO 03/09 210 212 Heparin Sodium 5,000 UNIT .STK-MED ONE 03/09 2143 DC (Porcine) IV 03/09 214 Heparin Sodium 2,832 UNIT BOLUS ONE 03/09 2115 DC 03/09 (Porcine) IV 03/09 2116 2115 Heparin Sodium 25,000 UNIT Q24H 03/08 1545 AC 03/09 (Porcine) IV 2127 Sodium Chloride 500 ML Hydralazine HCl 100 MG TID 03/04 1045 AC 03/10 PO 0618 Hydromorphone HCl 0.4 MG ONCE ONE 03/09 1715 DC 03/09 IV 03/09 1716 1711 Hydromorphone HCl 1 MG Q6-PRN PRN 03/06 1845 AC 03/10 IV 0133 Labetalol HCl 200 MG BID 03/05 2200 03/10 PO 0619 Lidocaine 0 .STK-MED ONE 03/09 0931 DC TOP Losartan Potassium 100 MG DAILY 03/04 1045 AC 03/10 PO 0618 Nifedipine 30 MG DAILY 03/07 1000 AC 03/10 PO 0618 Omeprazole 20 MG 0700,1600 /08 0700 AC 03/10 PO 0617 Ondansetron HCl 4 MG Q6P PRN 03/04 1015 AC 03/05 IV 0559 Last 24 Hrs of Lab/Ashwin Results Last 24 Hrs of Labs/Mics: Laboratory Tests 03/10/17 0400: PT Cancelled, INR Cancelled 03/10/17 0325: Anion Gap 10, Estimated GFR 8 L, BUN/Creatinine Ratio 3.5 L, PT 11.9, INR 1.13 , APTT 68 H, CBC w Diff NO MAN DIFF REQ, RBC 2.80 L, MCV 91.1, MCH 29.6, RDW 16.9 H, MPV 8.9, Gran % 57.0, Lymphocytes % 27.9, Monocytes % 7.0, Eosinophils % 7.5 H, Basophils % 0.6, Absolute Granulocytes 5.7, Absolute Lymphocytes 2.8, Absolute Monocytes 0.7 H, Absolute Eosinophils 0.8, Absolute Basophils 0.1, PUBS MCHC 32.5 L 03/09/172004: APTT 57 H Orders Radiology Findings: IMPRESSION: Successful placement of tunneled left sided jugular permacath. Occluded right internal jugular vein with several prominent collaterals in the right neck. 1.6 x 0.4 cm thrombus within the left mid/lower internal jugular vein, decreased from prior ultrasound when it measured 2.4 x 0.8 cm. The permacath venous entry site is placed proximal to this thrombus. Lines/Diet/Fluids Central Line Type/Location: left tunneled IJ placed Assessment/Plan Assessment: Ms. Wilson is a 31 y/o F with PMHx of ESRD on HD, resistant HTN with multiple hospitalizations for hypertensive urgency and previous ischemic and hemorrhagic strokes with residual minimal left-sided weakness and dysarthria who presents with fever and chills. #Sepsis - resolved Patient met SIRS criteria for sepsis on admission with fever to 102.6 and leukocytosis with WBC count of 15.0. Etiology is most likely the RIJ catheter with erythema and tenderness at the site. Pneumonia is unlikely in the absence of respiratory symptoms and consolidation on CXR. Patient is anuric at baseline thus urinary source can be ruled out. S/p 1 dose of vancomycin and ceftazidime in the ED. History of MRSA sepsis attributed to an infected port-a-cath in September 2014 treated at [facility]. * ID & nephro consult appreciated - RIJ HD catheter removed on 03/08 * IV heparin discontinued at 4am - underwent tunneled left IJ catheter placement. * Need to start anticoagulation 12hrs after the procedure, we will start eliquis to night. * F/U culture of the tip of the Eloisa cath at RIJ site upon removal (NGTD, <15 colonies) * 1 blood culture bottle from 03/05 growing staph aureus sensitive to cefazolin, BCx2 rom 03/07 have NGTD * Continue cefazolin 1.5 g IV and continue after each dialysis for total 4 weeks ( atleast till april 04) * AARON is negative for vegetations. * Stable for discharge tomorrow. #ESRD on HD: Switched from peritoneal dialysis to HD one month ago due to noncompliance issues. * Nephrology consulted. Appreciate their recs. * Continue HD per nephro. * Removed HD 03/08 after HD, consider HD replacement on Wed/. #Resistant HTN: Multiple hospitalizations for hypertensive urgency felt to be 2/ 2 medication and dialysis noncompliance. Follows with corporate consultant Dr. Mariee. [id number] meds include amlodipine 10 mg PO daily, clonidine patch, hydralazine 100 mg PO TID, labetalol 300 mg PO BID and losartan 100 mg PO daily. BP was elevated to 220/1220 on initial presentation but later came down to 120/ 70. Rapid drop in BP is concerning for impending septic shock. CT Head with no acute intracranial findings. Most recent ECHO in January 2017 with normal LVEF estimated at 65-70% and severe concentric hypertrophy with diastolic dysfunction. * Cardiology consult appreciated * Continue clonidine patch TTS-3 * Cardiology recently discontinued amlodipine and added nifedipine ER 30 mg daily; if BP becomes elevated, consider increasing to 60 mg ER daily * All home antihypertensives resumed (though labetolol at 200 mg BID instead of 300 mg BID and amlodipine recently discontinued as noted above) * Her Blood pressure today morning was negative 180/102mmHg - medications are given early. #Left IJ thrombosis: Developed two weeks ago at left IJ hemodialysis catheter site, followed by subsequent removal of left IJ catheter and placement of right IJ catheter. * Restarting eliquies tonight. * Continue heparin drip per protocol till eliquis is started. #Duodenitis/gastritis: * Continue [id number]-[id number]-pblqfdtaa omeprazole 20 mg PO BID. #Anxiety: * Continue angqk-jl-mdmymqmpl Xanax 0.5 mg PO daily PRN. Diet: Renal dialysis DVT PPx: Heparin and ALPs CODE: FULL Problem List: 1. CATHETER INFECTION 2. ESRD 3. Bacteremia Pain Ratin Pain Location: left IJ catheter insertion site Pain Goal: Pain 4 or less Pain Plan: Dilaudid Tomorrow's Labs & Rationales: cbc to monitor white count bep to monitor renal function MARI MD,CYNTHIA 03/10/17 1213: Attending MD Review Statement Attending Statement Attending MD Statement: examined this patient, discuss w/resident/PA/GUN SEALING MACHINE OPERATOR, agreed w/resident/PA/GUN SEALING MACHINE OPERATOR, reviewed EMR data (avail), discussed with nursing, discussed with case mgmt, reviewed images, amended to note Attending Assessment/Plan: Patient seen and examined at dialysis. Complaining of pain at the site/cath insertion. She just came back aftercath was reinserted on the left side. She' s now getting the dialysis done. Vital Signs Date Time Temp Pulse Resp B/P B/P Pulse O2 O2 Flow FiO2 Mean Ox Delivery Rate 03/10 1120 98.0 64 20 160/80 97 Room Air 03/10 0723 98.2 66 20 160/90 96 Room Air 03/10 0628 98.7 65 22 180/102 93 Room Air 03/10 0619 65 180/102 03/10 0618 65 180/102 03/10 0618 65 180/102 03/10 0618 65 180/102 03/09 2147 99.0 18 93 03/09 2126 76 182/90 03/09 2126 76 182/90 03/09 1556 60 174/80 03/09 1324 97.9 80 20 150/78 97 Room Air on exam; aox3, nad. cv; s1,s2, rrr, + eloisa cath on left side resp; clear abd; soft, nt, bs+ ext; no edema. Laboratory Tests 03/10 03/10 03/09 0400 0325 2004 Chemistry Sodium (137 - 145 mmol/L) 135 L Potassium (3.5 - 5.1 mmol/L) 5.0 Chloride (98 - 107 mmol/L) 100 Carbon Dioxide (22 - 30 mmol/L) 25 Anion Gap (5 - 16) 10 BUN (7 - 17 mg/dL) 22 H Creatinine (0.5 - 1.0 mg/dL) 6.2 *H Estimated GFR (>60 ml/min) 8 L BUN/Creatinine Ratio (7 - 25 %) 3.5 L Coagulation PT (9.4 - 12.5 SEC) Cancelled 11.9 INR (0.90 - 1.19) Cancelled 1.13 APTT (25 - 37 SEC) 68 H 57 H Hematology CBC w Diff NO MAN DIFF REQ WBC (4.8 - 10.8 /CUMM) 10.0 RBC (4.20 - 5.40 /CUMM) 2.80 L Hgb (12.0 - 16.0 G/DL) 8.3 L Hct (37 - 47 %) 25.5 L MCV (81.0 - 99.0 FL) 91.1 MCH (27.0 - 31.0 PG) 29.6 RDW (11.5 - 14.5 %) 16.9 H Plt Count (130 - 400 /CUMM) 292 MPV (7.4 - 10.4 FL) 8.9 Gran % (42.2 - 75.2 %) 57.0 Lymphocytes % (20.5 - 51.1 %) 27.9 Monocytes % (1.7 - 9.3 %) 7.0 Eosinophils % (0 - 5 %) 7.5 H Basophils % (0.0 - 2.0 %) 0.6 Absolute Granulocytes (1.4 - 6.5 /CUMM) 5.7 Absolute Lymphocytes (1.2 - 3.4 /CUMM) 2.8 Absolute Monocytes (0.10 - 0.60 /CUMM) 0.7 H Absolute Eosinophils (0.0 - 0.7 /CUMM) 0.8 Absolute Basophils (0.0 - 0.2 /CUMM) 0.1 PUBS MCHC (33.0 - 37.0 G/DL) 32.5 L A/P: 31 y/o F with PMHx of ESRD on HD, resistant HTN with multiple hospitalizations for hypertensive urgency and previous ischemic and hemorrhagic strokes with residual minimal left-sided weakness and dysarthria who presents with fever and chills, admitted with sepsis with fever to 102.6 and leukocytosis with WBC count of 15.0 and bacteremic. Patient has MSSA bacteremia. Eloisa cath was removed two days ago. So far catheter tip negative for any growth. Blood cx from 03/07 are also negative. Hemodialysis per nephrology. Patient gets her antibiotics with dialysis. Will likely need a total of 4 week course of antibiotics. Please confirm with infectious disease. Recheck with IR, hiay to resume her Eliquis 12 hours after thecath insertion procedure. We will resume the adequate starting tonight. In the meantime patient will be covered with IV heparin. Blood pressures responding to current medications. DVT prophylaxis: Heparin drip. Will confirm with infectious disease about antibiotics. Possible discharge home tomorrow.
[2017-03-10 07:23] VITALS: BP 160/90
--- NOTE | 2017-03-10 07:29 | NUR ---
NURSING NOTE: PT LEFT FLOOR VIA STRETCHER WITH DISTRIBUTION FOR HD PLACEMENT IN IR. PT AWAKE, A/OX3, ROOM AIR, VITALS OBTAINED, MEDICATED FOR PAIN, DSG TO R CHEST SITE INTACT, PREPROCEUDRE CHECKLIST, STAMPER/CHART SENT, REPORT GIVEN TO HEIDI IN IR. IV TO RFA PATENT. AWAIT RETURN TO FLOOR/
--- NOTE | 2017-03-10 10:31 | PN- Cardiology ---
PATEL,[facility] 03/10/17 1031: Subjective Subjective: Patient seen and examined, sitting on the bed comfortable with no acute distress , pain at the site of the new Eloisa cath. No chest pain, SOB, Palpitation. Vitals stable except BP: 160/80 HD daily. Review of Systems Constitutional: Reports: no symptoms. EENTM: Reports: no symptoms. Cardiovascular: Reports: no symptoms. Respiratory: Reports: no symptoms. Gastrointestinal: Reports: no symptoms. Genitourinary: Reports: no symptoms. Musculoskeletal: Reports: no symptoms. Skin: Reports: no symptoms. All Other Systems: Reviewed and Negative Objective Vital Signs and I&Os Vital Signs Date Time Temp Pulse Resp B/P B/P Pulse O2 O2 Flow FiO2 Mean Ox Delivery Rate 03/10 0723 98.2 66 20 160/90 96 Room Air 03/10 0628 98.7 65 22 180/102 93 Room Air 03/10 0619 65 180/102 03/10 0618 65 180/102 03/10 0618 65 180/102 03/10 0618 65 180/102 03/09 2147 99.0 18 93 03/09 2126 76 182/90 03/09 2126 76 182/90 03/09 1556 60 174/80 03/09 1324 97.9 80 20 150/78 97 Room Air Intake & Output 03/10 1600 03/10 0800 03/10 0000 03/09 1600 03/09 0800 03/09 0000 Intake Total 135.5 568 402.4 165 300 Output Total 0 0 0 0 Balance 135.5 568 402.4 165 300 Intake, IV 135.5 168 162.4 165 Intake, Oral 0 400 240 0 300 Number 0 0 0 0 Bowel Movements Output, Urine 0 0 0 0 Patient 156 lb 156 lb Weight Weight Chair scale Measurement Method Physical Exam General Appearance: well developed/nourished, no apparent distress, alert, awake , comfortable Head: atraumatic, normal appearance Neck: normal inspection, supple Respiratory: normal breath sounds, chest non-tender Cardiovascular: regular rate/rhythm, normal peripheral pulses Peripheral Pulses: 3+ dorsalis pedis (R), 3+ dorsalis pedis (L) Abdomen: normal bowel sounds, soft, non-tender Extremities: normal inspection, normal capillary refill, normal range of motion Current Medications: Current Medications Sig/Bryan Start time Last Medication Dose Route Stop Time Status Admin Acetaminophen 650 MG .STK-MED ONE 03/09 1507 DC PO 03/09 1508 Acetaminophen 650 MG Q6P PRN 03/04 0115 AC PO Acetaminophen/ 1 TAB Q6P PRN 03/04 0115 AC Hydrocodone Bitart PO Alprazolam 0.5 MG DAILY NEEDED PRN 03/04 0145 AC 03/08 PO 03/11 0144 2351 Calcium 600 MG BID 03/04 1000 AC 03/09 PO 2126 Cefazolin Sodium 0 .STK-MED ONE 03/10 0805 DC .ROUTE Cefazolin Sodium 1,500 MG MoWeFr 03/08 0900 AC 03/08 Sodium Chloride 100 ML IV 1328 Clonidine 3 PAT ONCE A WEEK 03/05 1115 AC 03/05 TOP 1333 Diphenhydramine HCl 25 MG ONCE ONE 03/09 2100 DC 03/09 PO 03/09 2101 2126 Fentanyl Citrate 0 .STK-MED ONE 03/10 0855 DC .ROUTE Fentanyl Citrate 0 .STK-MED ONE 03/10 08 DC .ROUTE Heparin Sodium 0 .STK-MED ONE 03/10 0925 DC (Porcine) IV Heparin Sodium 0 .STK-MED ONE 03/10 0754 DC (Porcine) IV Heparin Sodium 0 .STK-MED ONE 03/10 0740 DC (Porcine) IV Heparin Sodium 5,000 UNIT .STK-MED ONE 03/09 2143 DC (Porcine) IV 03/09 2144 Heparin Sodium 2,832 UNIT BOLUS ONE 03/09 2115 DC 03/09 (Porcine) IV 03/09 2116 2115 Heparin Sodium 25,000 UNIT Q24H 03/08 1545 DC 03/09 (Porcine) IV 2127 Sodium Chloride 500 ML Hydralazine HCl 100 MG TID 03/04 1045 AC 03/10 PO 0618 Hydromorphone HCl 0.4 MG ONCE ONE 03/09 1715 DC 03/09 IV 03/09 1716 1711 Hydromorphone HCl 1 MG Q6-PRN PRN 03/06 1845 AC 03/10 IV 0721 Labetalol HCl 200 MG BID 03/05 2200 AC 03/10 PO 0619 Lidocaine 0 .STK-MED ONE 03/10 0740 DC .ROUTE Losartan Potassium 100 MG DAILY 03/04 1045 AC 03/10 PO 0618 Midazolam HCl 0 .STK-MED ONE 03/10 0805 DC .ROUTE Nifedipine 30 MG DAILY 03/07 1000 AC 03/10 PO 617 Omeprazole 20 MG 0700,1600 03/04 0700 AC 03/10 PO 06 Ondansetron HCl 4 MG Q6P PRN 03/04 1015 AC 03/05 IV 0559 Results Last 48 Hrs of Labs/Mics: Laboratory Tests 03/10/17 0400: PT Cancelled, INR Cancelled 03/10/17 0325: Anion Gap 10, Estimated GFR 8 L, BUN/Creatinine Ratio 3.5 L, PT 11.9, INR 1.13 , APTT 68 H, CBC w Diff NO MAN DIFF REQ, RBC 2.80 L, MCV 91.1, MCH 29.6, RDW 16.9 H, MPV 8.9, Gran % 57.0, Lymphocytes % 27.9, Monocytes % 7.0, Eosinophils % 7.5 H, Basophils % 0.6, Absolute Granulocytes 5.7, Absolute Lymphocytes 2.8, Absolute Monocytes 0.7 H, Absolute Eosinophils 0.8, Absolute Basophils 0.1, PUBS MCHC 32.5 L 03/09/17 2005: APTT 57 H 03/09/17 0655: Anion Gap 8, Estimated GFR 11 L, BUN/Creatinine Ratio 2.8 L, APTT 63 H, CBC w Diff NO MAN DIFF REQ, RBC 2.67 L, MCV 90.4, MCH 29.7, RDW 16.2 H, MPV 9.1, Gran % 50.4, Lymphocytes % 33.2, Monocytes % 9.8 H, Eosinophils % 6.4 H, Basophils % 0.2, Absolute Granulocytes 3.9, Absolute Lymphocytes 2.6, Absolute Monocytes 0.8 H, Absolute Eosinophils 0.5, Absolute Basophils 0, PUBS MCHC 32.8 L 03/09/17 0500: Sodium Cancelled, Potassium Cancelled, Chloride Cancelled, Carbon Dioxide Cancelled, Anion Gap Cancelled, BUN Cancelled, Creatinine Cancelled, BUN/ Creatinine Ratio Cancelled, CBC w Diff Cancelled, WBC Cancelled, RBC Cancelled, Hgb Cancelled, Hct Cancelled, MCV Cancelled, MCH Cancelled, RDW Cancelled, Plt Count Cancelled, MPV Cancelled, PUBS MCHC Cancelled 03/08/17 2243: APTT > 120 *H Microbiology 03/08 1435 CATH TIP: Catheter Tip Culture - COMP Assessment/Plan Assessment/Plan Assessment: 1. Hypertension, not fully controlled 2. MSSA line sepsis 3. ESRD on HD with history of prior PD 4. History of CVA 5. History of severe atherosclerotic thoracic aorta vascular disease. 6. Left internal jugular vein thrombosis 7. No vegetation seen on transthoracic echo Plan: * Continue antibiotics as per ID. * A new eloisa cath inserted today, she received HD today * AARON done today which is negative for vegetation * Resume Eliquis 5mg po BID if no other procedure anticipated. * Continue current antihypertensive medications Continue telemetry? Not applicable Problem List: 1. Uncontrolled hypertension 2. Sepsis 3. ESRD on hemodialysis DANDRE CANTOR MD 03/10/17 1454: Attending MD Review Statement Attending Statement Attending MD Statement: examined this patient, discuss w/resident/PA/ORACLE SOA DEVELOPER, agreed w/resident/PA/ORACLE SOA DEVELOPER, discussed with family, reviewed EMR data (avail), discussed w/ nursing, reviewed images, amended to note Attending Assessment/Plan: The patient is seen on dialysis. She is status post placement of catheter, and she complains of discomfort at the catheter site. No cardiac complaints. No shortness of breath. No palpitations. Gen: The patient is in no acute distress HEENT: Normal nose, ears, and oropharynx. Pupils equal bilaterally. Conjunctiva normal. Neck: Supple with no JVD, no masses, and no thyromegaly Lungs: Decreased breath sounds with normal respiratory effort Heart: RRR, S1, S2, no murmurs. 1+ peripheral edema, 1+ pulses in the lower extremities bilaterally Abdomen: Soft, nontender, no masses. No hepatomegaly. No splenomegaly Extremities: No clubbing or cyanosis. Normal muscle strength in the upper and lower extremities Skin: Normal skin turgor with no skin ulcers or lesions noted. AARON was performed that shows no evidence of vegetations or other evidence of endocarditis Assessment: 1. Hypertension, not fully controlled 2. Sepsis with Blood culture positive for Staph aureus secondary to possible IJ line infection. 3. ESRD on HD with history of prior PD 4. History of CVA 5. History of severe atherosclerotic thoracic aorta vascular disease. 6. Left internal jugular vein thrombosis 7. No vegetation seen on transthoracic echo Plan: * antibiotics as per Infectious Disease * continue current cardiac medications
--- NOTE | 2017-03-10 10:45 | ECHOCARDIOGRAM REPORT ---
TERI BORRERO Age: 31 : Gender: F Exam Date: 03/09/2017 10:41 Exam Location: [facility] Ht (in): 61 Wt (lb): 156 BSA: 1.77 BP: 188 / 100 Ordering Physician: SOHAIL CANTOR M Referring Physician: SOHAIL CANTOR MD Technologist: Arturo Bolanos [facility] Room Number: 206-1 Indications: INFECTIVE ENDOCARDITIS Rhythm: Sinus Technical Quality: Technically difficult study Medications Propofol Ease of Transducer Insertion No Difficulty Complications none Technical Difficulty No difficulty FINDINGS Left Ventricle Normal size left ventricle. Normal left ventricular ejection fraction visually estimated at >60%. Normal left ventricular wall motion. Left ventricular hypertrophy. Right Ventricle Normal right ventricular global systolic function. Right Atrium Right atrial dilatation. Left Atrium Left atrial dilatation. LA Appendage Normal left atrial appendage. IA Septum Normal interatrial septum. Mitral Valve Moderate mitral annular calcification. Mitral valve is thickened with no definite vegetations seen. Mild mitral regurgitation. Aortic Valve Structurally normal trileaflet aortic valve with no vegetations seen. No aortic stenosis. No aortic regurgitation. Tricuspid Valve Structurally normal tricuspid valve with no vegetations seen. Mild tricuspid regurgitation. Pulmonic Valve Pulmonic valve not well visualized, grossly normal. Pericardium No pericardial effusion. Great Vessels Mild atherosclerosis of the descending thoracic aorta is noted. CONCLUSIONS Normal size left ventricle. Normal left ventricular ejection fraction visually estimated at > 60%. Left ventricular hypertrophy. Right atrial dilatation. Left atrial dilatation. Moderate mitral annular calcification. Mitral valve is thickened with no definite vegetations seen. Mild mitral regurgitation. Mild tricuspid regurgitation. Mild atherosclerosis of the descending thoracic aorta is noted. Structurally normal trileaflet aortic valve with no vegetations seen. Structurally normal tricuspid valve with no vegetations seen. Sohail Cantor M.D. (Electronically Signed) Final Date: 10 March 2017 10:44 MEASUREMENTS (Male / Female) Normal Values
[2017-03-10 11:20] VITALS: BP 160/80
--- NOTE | 2017-03-10 11:20 | NUR ---
NURSING NOTE: PT BACK TO FLOOR FROM IR S/P [facility] CATH PLACEMENT; SITE OOZING A LITTLE BLOOD; NOT NEW PER HEIDI MEANS IR NURSE. GATE OPERATOR MADE AWARE,WILL MEDICATE EARLY FOR PAIN PER MD ORDER, VITALS OBTAINED, AWAITING DISTRIBTION FOR DILAYSIS.
--- NOTE | 2017-03-10 11:30 | NUR ---
NURSING NOTE: PT LEFT FLOOR VIA BED WITH DISTRIBUTION FOR DIALYSIS. PT AWAKE, A/OX3, SLIGHT BLOODY OOZING NOTED TO [facility] CATH SITE; IV TO RFA PATENT; BIOPATCH IN PLACE; MEDICATED FOR PAIN WITH IV DILAUDID EARLY PER MD ORDER.REPORT GIVEN TO JOURDANIS RN. FINISH PRODUCTION MANAGER TO GIVE ANTIBX AFTER DILAYSIS; PHARMACY TO SEND ANTIBX TO DILAYSIS RN, AWAIT RETURN TO FLOOR
--- NOTE | 2017-03-10 12:10 | PN- Nephrology ---
Assessment/Plan Assessment: 1. ESRD. 2. MSSA line sepsis 3. Hypertension Suggestion: 1. Hemodialysis today in progress using her new left IJ tunneled dialysis catheter with goal of 4 L ultrafiltration over 4 hours as tolerated. 2. Estimated dry weight to be changed to 66 kg. 3. Continue antibiotic therapy Subjective Subjective: Patient had a left IJ tunneled dialysis catheter placed this morning apparently without too much difficulty. Patient is complaining of some postprocedure discomfort but otherwise seems to be doing well. She remains afebrile. Dry weight has been readjusted. Objective Vital Signs and I&Os Vital Signs Date Time Temp Pulse Resp B/P B/P Pulse O2 O2 Flow FiO2 Mean Ox Delivery Rate 03/10 1120 98.0 64 20 160/80 97 Room Air 03/10 0723 98.2 66 20 160/90 96 Room Air 03/10 0628 98.7 65 22 180/102 93 Room Air 03/10 0619 65 180/102 03/10 0618 65 180/102 03/10 0618 65 180/102 03/10 0618 65 180/102 03/09 2147 99.0 18 93 03/09 2126 76 182/90 03/09 2126 76 182/90 03/09 1556 60 174/80 03/09 1324 97.9 80 20 150/78 97 Room Air Intake & Output 03/10 1600 03/10 0400 03/09 1600 03/09 0400 03/08 1600 03/08 0400 Intake Total 135.5 568 567.4 300 676 591 Output Total 0 0 0 0 Balance 135.5 568 567.4 300 676 591 Intake, IV 135.5 168 327.4 396 Intake, Oral 0 400 240 300 280 591 Number 0 0 0 0 Bowel Movements Output, Urine 0 0 0 0 Patient 156 lb 156 lb 152 lb Weight Weight Chair scale Standing Scale Measurement Method Physical Exam: General: Well-developed, white female in no acute distress Skin: No rash or jaundice HEENT: Conjunctivae pink, sclerae anicteric, mucous membranes moist Neck: Without masses, no supraclavicular or cervical adenopathy, left IJ tunnel catheter in place with associated tenderness Chest: Clear to P&A Heart: Regular rate and rhythm without S3 or rub Abdomen: Soft and nontender without palpable masses or organomegaly; PD catheter still in place Extremities: Without cyanosis or edema Neuro: No focal findings, no asterixis or myoclonus Current Medications: Current Medications Sig/Bryan Start time Last Medication Dose Route Stop Time Status Admin Acetaminophen 650 MG .STK-MED ONE 03/09 1507 DC PO 03/09 1508 Acetaminophen 650 MG Q6P PRN 03/04 0115 AC PO Acetaminophen/ 1 TAB Q6P PRN 03/04 0115 AC Hydrocodone Bitart PO Alprazolam 0.5 MG DAILY NEEDED PRN 03/04 0145 AC 03/08 PO 03/11 0144 2351 Calcium 600 MG BID 03/04 1000 AC 03/09 PO 2126 Cefazolin Sodium 0 .STK-MED ONE 03/10 0805 DC .ROUTE Cefazolin Sodium 1,500 MG MoWeFr 03/08 0900 AC 03/08 Sodium Chloride 100 ML IV 1328 Clonidine 3 PAT ONCE A WEEK 03/05 1115 AC 03/05 TOP 1333 Diphenhydramine HCl 25 MG ONCE ONE 03/09 2100 DC 03/09 PO 03/09 2101 2126 Fentanyl Citrate 0 .STK-MED ONE 03/10 0855 DC .ROUTE Fentanyl Citrate 0 .STK-MED ONE 03/10 0805 DC .ROUTE Heparin Sodium 0 .STK-MED ONE 03/10 0925 DC (Porcine) IV Heparin Sodium 0 .STK-MED ONE 03/10 0754 DC (Porcine) IV Heparin Sodium 0 .STK-MED ONE 03/10 0740 DC (Porcine) IV Heparin Sodium 5,000 UNIT .STK-MED ONE 03/09 2143 DC (Porcine) IV 03/09 2144 Heparin Sodium 2,832 UNIT BOLUS ONE 03/09 2115 DC 03/09 (Porcine) IV 03/09 2116 2115 Heparin Sodium 25,000 UNIT Q24H 03/08 1545 DC 03/09 (Porcine) IV 2127 Sodium Chloride 500 ML Hydralazine HCl 100 MG TID 03/04 1045 AC 03/10 PO 0618 Hydromorphone HCl 0.4 MG ONCE ONE 03/09 1715 DC 03/09 IV 03/09 1716 1711 Hydromorphone HCl 1 MG Q6-PRN PRN 03/06 1845 AC 03/10 IV 1123 Labetalol HCl 200 MG BID 03/05 2200 AC 03/10 PO 0619 Lidocaine 0 .STK-MED ONE 03/10 0740 DC .ROUTE Losartan Potassium 100 MG DAILY 03/04 1045 AC 03/10 PO 18 Midazolam HCl 0 .STK-MED ONE 03/10 0805 DC .ROUTE Nifedipine 30 MG DAILY 03/07 1000 AC 03/10 PO 0618 Omeprazole 20 MG 0700,1600 06/08 0700 AC 03/10 PO 0617 Ondansetron HCl 4 MG Q6P PRN 03/04 1015 AC 03/05 IV 0559 Results Pertinent Lab Results: Laboratory Tests 03/10 03/10 03/09 0400 0325 2004 Chemistry Sodium (137 - 145 mmol/L) 135 L Potassium (3.5 - 5.1 mmol/L) 5.0 Chloride (98 - 107 mmol/L) 100 Carbon Dioxide (22 - 30 mmol/L) 25 Anion Gap (5 - 16) 10 BUN (7 - 17 mg/dL) 22 H Creatinine (0.5 - 1.0 mg/dL) 6.2 *H Estimated GFR (>60 ml/min) 8 L BUN/Creatinine Ratio (7 - 25 %) 3.5 L Coagulation PT (9.4 - 12.5 SEC) Cancelled 11.9 INR (0.90 - 1.19) Cancelled 1.13 APTT (25 - 37 SEC) 68 H 57 H Hematology CBC w Diff NO MAN DIFF REQ WBC (4.8 - 10.8 /CUMM) 10.0 RBC (4.20 - 5.40 /CUMM) 2.80 L Hgb (12.0 - 16.0 G/DL) 8.3 L Hct (37 - 47 %) 25.5 L MCV (81.0 - 99.0 FL) 91.1 MCH (27.0 - 31.0 PG) 29.6 RDW (11.5 - 14.5 %) 16.9 H Plt Count (130 - 400 /CUMM) 292 MPV (7.4 - 10.4 FL) 8.9 Gran % (42.2 - 75.2 %) 57.0 Lymphocytes % (20.5 - 51.1 %) 27.9 Monocytes % (1.7 - 9.3 %) 7.0 Eosinophils % (0 - 5 %) 7.5 H Basophils % (0.0 - 2.0 %) 0.6 Absolute Granulocytes (1.4 - 6.5 /CUMM) 5.7 Absolute Lymphocytes (1.2 - 3.4 /CUMM) 2.8 Absolute Monocytes (0.10 - 0.60 /CUMM) 0.7 H Absolute Eosinophils (0.0 - 0.7 /CUMM) 0.8 Absolute Basophils (0.0 - 0.2 /CUMM) 0.1 PUBS MCHC (33.0 - 37.0 G/DL) 32.5 L 03/09 03/09 03/08 0655 0500 2243 Chemistry Sodium (137 - 145 mmol/L) 137 Cancelled Potassium (3.5 - 5.1 mmol/L) 4.6 Cancelled Chloride (98 - 107 mmol/L) 101 Cancelled Carbon Dioxide (22 - 30 mmol/L) 28 Cancelled Anion Gap (5 - 16) 8 Cancelled BUN (7 - 17 mg/dL) 13 Cancelled Creatinine (0.5 - 1.0 mg/dL) 4.6 H Cancelled Estimated GFR (>60 ml/min) 11 L BUN/Creatinine Ratio (7 - 25 %) 2.8 L Cancelled Coagulation APTT (25 - 37 SEC) 63 H > 120 *H Hematology CBC w Diff NO MAN DIFF REQ Cancelled WBC (4.8 - 10.8 /CUMM) 7.8 Cancelled RBC (4.20 - 5.40 /CUMM) 2.67 L Cancelled Hgb (12.0 - 16.0 G/DL) 7.9 L Cancelled Hct (37 - 47 %) 24.2 L Cancelled MCV (81.0 - 99.0 FL) 90.4 Cancelled MCH (27.0 - 31.0 PG) 29.7 Cancelled RDW (11.5 - 14.5 %) 16.2 H Cancelled Plt Count (130 - 400 /CUMM) 264 Cancelled MPV (7.4 - 10.4 FL) 9.1 Cancelled Gran % (42.2 - 75.2 %) 50.4 Lymphocytes % (20.5 - 51.1 %) 33.2 Monocytes % (1.7 - 9.3 %) 9.8 H Eosinophils % (0 - 5 %) 6.4 H Basophils % (0.0 - 2.0 %) 0.2 Absolute Granulocytes (1.4 - 6.5 /CUMM) 3.9 Absolute Lymphocytes (1.2 - 3.4 /CUMM) 2.6 Absolute Monocytes (0.10 - 0.60 /CUMM) 0.8 H Absolute Eosinophils (0.0 - 0.7 /CUMM) 0.5 Absolute Basophils (0.0 - 0.2 /CUMM) 0 PUBS MCHC (33.0 - 37.0 G/DL) 32.8 L Cancelled 03/08 03/08 03/08 0950 0742 0672 Chemistry Sodium (137 - 145 mmol/L) Cancelled 133 L Potassium (3.5 - 5.1 mmol/L) Cancelled 4.4 Chloride (98 - 107 mmol/L) Cancelled 99 Carbon Dioxide (22 - 30 mmol/L) Cancelled 24 Anion Gap (5 - 16) Cancelled 10 BUN (7 - 17 mg/dL) Cancelled 26 H Creatinine (0.5 - 1.0 mg/dL) Cancelled 7.1 *H Estimated GFR (>60 ml/min) 7 L BUN/Creatinine Ratio (7 - 25 %) Cancelled 3.7 L Glucose (65 - 99 mg/dL) 88 Calcium (8.4 - 10.2 mg/dL) 8.7 Total Beta HCG (NEGATIVE) NEGATIVE Coagulation APTT (25 - 37 SEC) 71 H Hematology CBC w Diff Cancelled NO MAN DIFF REQ WBC (4.8 - 10.8 /CUMM) Cancelled 9.4 RBC (4.20 - 5.40 /CUMM) Cancelled 2.68 L Hgb (12.0 - 16.0 G/DL) Cancelled 8.0 L Hct (37 - 47 %) Cancelled 24.6 L MCV (81.0 - 99.0 FL) Cancelled 91.7 MCH (27.0 - 31.0 PG) Cancelled 29.9 RDW (11.5 - 14.5 %) Cancelled 17.1 H Plt Count (130 - 400 /CUMM) Cancelled 267 MPV (7.4 - 10.4 FL) Cancelled 9.0 Gran % (42.2 - 75.2 %) 58.1 Lymphocytes % (20.5 - 51.1 %) 27.1 Monocytes % (1.7 - 9.3 %) 8.5 Eosinophils % (0 - 5 %) 5.6 H Basophils % (0.0 - 2.0 %) 0.7 Absolute Granulocytes (1.4 - 6.5 /CUMM) 5.5 Absolute Lymphocytes (1.2 - 3.4 /CUMM) 2.6 Absolute Monocytes (0.10 - 0.60 /CUMM) 0.8 H Absolute Eosinophils (0.0 - 0.7 /CUMM) 0.5 Absolute Basophils (0.0 - 0.2 /CUMM) 0.1 PUBS MCHC (33.0 - 37.0 G/DL) Cancelled 32.6 L Serology Hep Bs Antigen (NONREACTIVE) NONREACTIVE Hep Bs Antibody (NONREACTIVE) NONREACTIVE 03/07 1947 Coagulation APTT (25 - 37 SEC) 90 H
--- NOTE | 2017-03-10 13:18 | ULTRASOUND REPORT ---
LEFT-SIDED TUNNELED PERMACATH INTERVENTIONAL RADIOLOGIST: Lefty Campbell M.D. CLINICAL INDICATION: End-stage renal disease requiring dialysis. The patient had a right-sided PermCath which was removed 03/08/2017 due to concern for infection. The patient has occlusion of the right internal jugular vein and is currently being treated for a left IJ thrombus. ACCESS: Left internal jugular vein. GUIDANCE: Ultrasound and Fluoroscopy (2.2) minutes CONSCIOUS SEDATION: The patient received intravenous conscious sedation under my direct supervision. A registered nurse monitored the patient and the patient's vital signs throughout the procedure. The total sedation time was 40 minutes. A total of 150 mg of Versed and 2 mcg fentanyl was given for good effect. COMPLICATIONS: none CONTRAST: none INFORMED CONSENT: Informed consent was obtained from the patient prior to the procedure. During this process, the procedure and potential alternatives were explained, along with the intended outcome and benefits. The risks of the procedure including the possibility of an unsuccessful procedure, as well as the risk of not doing the procedure were discussed. The patient was given the opportunity to ask questions regarding the procedure and appeared competent to make decisions. A signed consent form documenting this discussion was placed in the medical record. A time out procedure was performed. DESCRIPTION: Initial ultrasound of the right neck demonstrates occlusion of the right internal jugular vein. Several prominent collateral vessels are noted throughout the right neck. Preprocedure ultrasound of the left internal jugular vein redemonstrates a thrombus within the mid/lower internal jugular vein measuring approximate 1.6 x 0.4 cm. Comparison with the prior ultrasound of the left neck from 03/04/2017 demonstrates interval decrease in size of this thrombus within the IJ, a previously measured 2.4 x 0.8 cm. Given no good access in the right neck, and after discussion with the clinical service on the floor, decision was made to place the left-sided PermCath via the left internal jugular vein. The patient will continue on anticoagulation. The left neck and chest wall were prepped and draped. Under direct ultrasonic guidance, the left internal jugular vein was punctured using a micropuncture system. Under fluoroscopic guidance, a 0.018 guidewire was advanced into the right atrium. Fluoroscopic landmarks were utilized to calculate a tunnel length. A tunnel was then created along the left chest wall to the jugular puncture site. A 16 [place] 27 cm tip-to-cuff hemodialysis catheter was then pulled through the tunnel. The 0.018 wire was replaced with a 0.035 wire with its tip in the IVC. After serial dilatation with 8, 10 and 12 [place] dilators, a peel-away sheath was then placed into the left jugular vein. The Perma-Cath was passed through the peel-away sheath and positioned with its tip in the distal right atrium. The peel-away sheath was removed. A few PVCs were noted and given the low positioning within the right atrium of the catheter, decision was made to exchange the 16 [place] by 27 cm tip to cuff hemodialysis catheter for a 16 [place] by 23 cm tip to cuff hemodialysis catheter. Catheter was exchanged over 2 stiff Glidewire and replaced with the new 16 [place] by 23 cm tip to cuff hemodialysis catheter. Catheter tip was confirmed to be high right atrium. The Perma-Cath was secured to the skin using 2-0 Ethilon. The jugular entry site was closed with Dermabond. The lumens of the Perma-Cath were flushed with normal saline and heparin. A sterile dressing was applied. IMPRESSION: Successful placement of tunneled left sided jugular permacath. Occluded right internal jugular vein with several prominent collaterals in the right neck. 1.6 x 0.4 cm thrombus within the left mid/lower internal jugular vein, decreased from prior ultrasound when it measured 2.4 x 0.8 cm. The permacath venous entry site is placed proximal to this thrombus.
--- NOTE | 2017-03-10 13:30 | NUR ---
NURSING NOTE: NARESH RN CALLED AND SAID PT REQUESTING PAIN MED, NUCLEAR MEDICINE TECHNOLOGIST CALLED, IV DILAUDID X1 GIVEN AT THIS TIME
[2017-03-10 17:40] VITALS: BP 194/90
--- NOTE | 2017-03-10 18:07 | PN- Infect Dx ---
Subjective Subjective: Afebrile. She complains of pain at the site of the new left IJ Glenroy catheter Objective Last 24 Hrs of Vital Signs/I&O Vital Signs Date Time Temp Pulse Resp B/P B/P Pulse O2 O2 Flow FiO2 Mean Ox Delivery Rate 03/10 1745 71 194/90 03/10 1120 98.0 64 20 160/80 97 Room Air 03/10 0723 98.2 66 20 160/90 96 Room Air 03/10 0628 98.7 65 22 180/102 93 Room Air 03/10 0619 65 180/102 03/10 0618 65 180/102 03/10 0618 65 180/102 03/10 0618 65 180/102 03/09 2147 99.0 18 93 03/09 2126 76 182/90 03/09 212 76 182/90 Intake & Output 03/10 1600 03/10 0800 03/10 0000 Intake Total 290 135.5 568 Output Total 0 0 0 Balance 290 135.5 568 Intake, IV 40 135.5 168 Intake, Oral 250 0 400 Number 0 0 0 Bowel Movements Output, Urine 0 0 0 Patient 156 lb Weight Weight Chair scale Measurement Method Physical Exam Other Physical Findings: She appears comfortable in no acute distress Neck left IJ Glenroy catheter site tender to palpation; right neck tenderness at the site of the recent right IJ Glenroy catheter Results Last 24 Hours of Lab Results: Laboratory Tests 03/10 03/10 03/10 1515 0400 0325 Chemistry Sodium (137 - 145 mmol/L) 135 L Potassium (3.5 - 5.1 mmol/L) 5.0 Chloride (98 - 107 mmol/L) 100 Carbon Dioxide (22 - 30 mmol/L) 25 Anion Gap (5 - 16) 10 BUN (7 - 17 mg/dL) 22 H Creatinine (0.5 - 1.0 mg/dL) 6.2 *H Estimated GFR (>60 ml/min) 8 L BUN/Creatinine Ratio (7 - 25 %) 3.5 L Coagulation PT (9.4 - 12.5 SEC) Cancelled 11.9 INR (0.90 - 1.19) Cancelled 1.13 APTT (25 - 37 SEC) Cancelled 68 H Hematology CBC w Diff NO MAN DIFF REQ WBC (4.8 - 10.8 /CUMM) 10.0 RBC (4.20 - 5.40 /CUMM) 2.80 L Hgb (12.0 - 16.0 G/DL) 8.3 L Hct (37 - 47 %) 25.5 L MCV (81.0 - 99.0 FL) 91.1 MCH (27.0 - 31.0 PG) 29.6 RDW (11.5 - 14.5 %) 16.9 H Plt Count (130 - 400 /CUMM) 292 MPV (7.4 - 10.4 FL) 8.9 Gran % (42.2 - 75.2 %) 57.0 Lymphocytes % (20.5 - 51.1 %) 27.9 Monocytes % (1.7 - 9.3 %) 7.0 Eosinophils % (0 - 5 %) 7.5 H Basophils % (0.0 - 2.0 %) 0.6 Absolute Granulocytes (1.4 - 6.5 /CUMM) 5.7 Absolute Lymphocytes (1.2 - 3.4 /CUMM) 2.8 Absolute Monocytes (0.10 - 0.60 /CUMM) 0.7 H Absolute Eosinophils (0.0 - 0.7 /CUMM) 0.8 Absolute Basophils (0.0 - 0.2 /CUMM) 0.1 PUBS MCHC (33.0 - 37.0 G/DL) 32.5 L 03/09 2005 Coagulation APTT (25 - 37 SEC) 57 H Last 24 Hours of Ashwin Results: Blood cultures 2 March 07 negative Glenroy Catheter tip culture March 08 negative Recent Imaging Studies: AARON March 09 negative for any vegetations Assessment/Plan Impression: Stable status post placement of a permacath in the left IJ earlier today, with the catheter first inserted replaced with a shorter catheter because of a few PVCs and low positioning of the catheter within the right atrium, and with an ultrasound of the right neck apparently revealing occlusion of the right IJ and a decrease in size of the left IJ thrombus. She has otherwise improved with temperatures and white blood cell count normal on Cefazolin for Staph aureus sepsis presumably secondary to an infected right IJ Glenroy catheter, which was removed 2 days ago, with repeat blood cultures from 3 days ago remaining negative. The catheter tip culture was negative, but she was on antibiotics for several days prior to this culture. Her AARON was negative but feel that she should still receive a 4 to 6 week course of IV antibiotics. Suggestion: 1. Continue Cefazolin 1.5 g IV after each dialysis to plan on a minimum of 4 weeks of treatment from her negative blood cultures (until April 04)
[2017-03-10 19:00] VITALS: BP 143/80
[2017-03-10 22:20] VITALS: BP 170/90
--- NOTE | 2017-03-11 00:28 | NUR ---
1750 LOOM FIXER SUPERVISOR AWARE OF BP. MEDICATION GIVEN. 1899 VITAL SIGNS STABLE. ALERT AND ORIENTED X 3. ON ROOM AIR. DENIES SHORTNESS OF BREATH. + PULSES. STEADY GAIT. SKIN C/D/I. MEDICATION GIVEN FOR PAIN FROM [facility] CATH SITE. 2199 LOOM FIXER SUPERVISOR NOTIFIED OF L ARM SWELLING. PATIENT RESTING AT THIS TIME
[2017-03-11 07:12] VITALS: BP 192/108
--- NOTE | 2017-03-11 07:23 | PN- Housestaff ---
CHON HERRERA 03/11/17 0722: Subjective Follow-up For: End-stage renal disease on hemodialysis Uncontrolled hypertension Left IJ thrombosis Complaints: no complaints Subjective: Pt stable. Still complains of pain. No tenderness or erythema near the IJ catheter. Review of Systems Constitutional: Reports: see HPI. Objective Last 24 Hrs of Vital Signs/I&O Vital Signs Date Time Temp Pulse Resp B/P B/P Pulse O2 O2 Flow FiO2 Mean Ox Delivery Rate 03/11 0712 98.0 68 20 192/108 95 Room Air 03/11 0630 192/108 03/11 0629 192/108 03/10 2249 77 170/90 03/10 2249 77 170/90 03/10 2220 98.1 77 18 170/90 94 03/10 1900 98.4 70 22 143/80 95 Room Air 03/10 1745 71 194/90 03/10 1740 98.1 71 20 194/90 95 Room Air 03/10 1120 98.0 64 20 160/80 97 Room Air 03/10 0723 98.2 66 20 160/90 96 Room Air Intake & Output 03/11 0800 03/11 0000 03/10 1600 Intake Total 20 290 Output Total 450 0 Balance 20 -450 290 Intake, IV 20 40 Intake, Oral 250 Number 0 Bowel Movements Output, Urine 450 0 Patient 160 lb 157 lb Weight Weight Standing Scale Measurement Method Physical Exam General Appearance: No Acute Distress Other Physical Findings: General Appearance: Alert, Oriented X3, Moderate Distress Skin: No Rashes Skin Temp/Moisture Exam: Warm/Dry, no erythema near the IJ site HEENT: Atraumatic, PERRLA, EOMI Neck: Supple, No JVD Cardiovascular: Normal S1, Normal S2 Lungs: Normal Air Movement Abdomen: Normal Bowel Sounds, Soft, No Tenderness Neurological: Normal Speech, Normal Tone, Sensation Intact Extremities: No Clubbing, No Cyanosis, 1-2+ pedal edema present Vascular: Pulses Symmetrical Current Medications: Current Medications Sig/Bryan Start time Last Medication Dose Route Stop Time Status Admin Acetaminophen 650 MG Q6P PRN 03/04 0115 AC PO Acetaminophen/ 1 TAB Q6P PRN 03/04 011 DC Hydrocodone Bitart PO Alprazolam 0.5 MG DAILY NEEDED PRN 03/04 0145 DC 03/11 PO 03/11 014 0129 Apixaban 5 MG BID 03/10 2200 DC PO Apixaban 5 MG BID 03/10 2200 AC 03/10 PO 2258 Calcium 600 MG BID 03/04 1000 AC 03/10 PO 2249 Cefazolin Sodium 0 .STK-MED ONE 03/10 08 DC .ROUTE Cefazolin Sodium 1,500 MG MoWeFr 03/08 0900 AC 03/08 Sodium Chloride 100 ML IV 1328 Clonidine 3 PAT ONCE A WEEK 03/05 1115 AC 03/05 TOP 1333 Fentanyl Citrate 0 .STK-MED ONE 03/10 0855 DC .ROUTE Fentanyl Citrate 0 .STK-MED ONE 03/10 08 DC .ROUTE Heparin Sodium 25,000 UNIT Q24H 03/10 2245 CAN (Porcine) IV Sodium Chloride 500 ML Heparin Sodium 0 .STK-MED ONE 03/10 0925 DC (Porcine) IV Heparin Sodium 0 .STK-MED ONE 03/10 0754 DC (Porcine) IV Heparin Sodium 0 .STK-MED ONE 03/10 0740 DC (Porcine) IV Hydralazine HCl 100 MG TID 03/04 1045 AC 03/11 PO 0630 Hydromorphone HCl 0.4 MG ONCE ONE 03/11 0130 DC 03/11 IV 03/11 0131 0129 Hydromorphone HCl 0.6 MG ONCE ONE 03/10 2045 DC 03/10 IV 03/10 2046 2046 Hydromorphone HCl 1 MG ONCE ONE 03/10 1845 DC 03/10 IV 03/10 1846 1846 Hydromorphone HCl 1 MG ONCE ONE 03/10 1315 DC 03/10 IV 03/10 1316 1330 Hydromorphone HCl 1 MG Q6-PRN PRN 03/06 1845 AC 03/11 IV 0627 Labetalol HCl 200 MG BID 03/05 2200 AC 03/11 PO 0629 Lidocaine 0 .STK-MED ONE 03/10 0740 DC .ROUTE Losartan Potassium 100 MG DAILY 03/04 1045 AC 03/10 PO 0618 Midazolam HCl 0 .STK-MED ONE 03/10 08 DC .ROUTE Nifedipine 30 MG DAILY 03/07 1000 AC 03/10 PO 0618 Omeprazole 20 MG 0700,1600 06/08 0700 AC 03/11 PO 0630 Ondansetron HCl 4 MG Q6P PRN 03/04 1015 AC 03/05 IV 0559 Last 24 Hrs of Lab/Ashwin Results Last 24 Hrs of Labs/Mics: Laboratory Tests 03/10/17 1515: APTT Cancelled Assessment/Plan Assessment: Ms. Wilson is a 31 y/o F with PMHx of ESRD on HD, resistant HTN with multiple hospitalizations for hypertensive urgency and previous ischemic and hemorrhagic strokes with residual minimal left-sided weakness and dysarthria who presents with fever and chills. #Sepsis - resolved Patient met SIRS criteria for sepsis on admission with fever to 102.6 and leukocytosis with WBC count of 15.0. Etiology is most likely the RIJ catheter with erythema and tenderness at the site. Pneumonia is unlikely in the absence of respiratory symptoms and consolidation on CXR. Patient is anuric at baseline thus urinary source can be ruled out. S/p 1 dose of vancomycin and ceftazidime in the ED. History of MRSA sepsis attributed to an infected port-a-cath in September 2014 treated at [facility]. * ID & nephro consult appreciated - RIJ HD catheter removed on 03/08 * IV heparin discontinued at 4am - underwent tunneled left IJ catheter placement. * Eliquis 5mg BID * F/U culture of the tip of the Glenroy cath at RIJ site upon removal (NGTD, <15 colonies) * 1 blood culture bottle from 03/05 growing staph aureus sensitive to cefazolin, BCx2 rom 03/07 have NGTD * Continue cefazolin 1.5 g IV and continue after each dialysis for total 4 weeks ( atleast till april 04). Arrangements made. Called the Claribel Sharma Joanna, and she is aware of the arrangment. She will administer the medication unitl April 04. Also faxed the records over. * AARON is negative for vegetations. * Stable for discharge. #ESRD on HD: Switched from peritoneal dialysis to HD one month ago due to noncompliance issues. * Nephrology consulted. Appreciate their recs. * Continue HD per nephro.. #Resistant HTN: Multiple hospitalizations for hypertensive urgency felt to be 2/ 2 medication and dialysis noncompliance. Follows with contact finger assembler Dr. Mariee. Gomuj-sj-volkeqlxt meds include amlodipine 10 mg PO daily, clonidine patch, hydralazine 100 mg PO TID, labetalol 300 mg PO BID and losartan 100 mg PO daily. BP was elevated to 220/1220 on initial presentation but later came down to 120/ 70. Rapid drop in BP is concerning for impending septic shock. CT Head with no acute intracranial findings. Most recent ECHO in January 2017 with normal LVEF estimated at 65-70% and severe concentric hypertrophy with diastolic dysfunction. * Cardiology consult appreciated * Continue clonidine patch TTS-3 * Cardiology recently discontinued amlodipine and added nifedipine ER 30 mg daily; if BP becomes elevated, consider increasing to 60 mg ER daily * All home antihypertensives resumed (though labetolol at 200 mg BID instead of 300 mg BID and amlodipine recently discontinued as noted above) * Her Blood pressure today morning was negative 180/102mmHg - medications are given early. #Left IJ thrombosis: Developed two weeks ago at left IJ hemodialysis catheter site, followed by subsequent removal of left IJ catheter and placement of right IJ catheter. * Restarted eliquies. * Continue heparin drip per protocol till eliquis is started. #Duodenitis/gastritis: * Continue [id number] omeprazole 20 mg PO BID. #Anxiety: * Continue [id number] Xanax 0.5 mg PO daily PRN. Diet: Renal dialysis DVT PPx: Heparin and ALPs CODE: FULL Problem List: 1. Uncontrolled hypertension 2. HTN (hypertension) Pain Ratin Pain Location: None Pain Goal: Pain 4 or less Pain Plan: Tylenol when necessary Tomorrow's Labs & Rationales: Pt to be dc'ed. No labs [facility]I [place],[facility] 03/11/17 1329: Attending MD Review Statement Attending Statement Attending MD Statement: examined this patient, discuss w/resident/PA/STONE ENGRAVER, agreed w/resident/PA/STONE ENGRAVER, reviewed EMR data (avail), discussed with nursing, discussed with case mgmt, reviewed images, amended to note Attending Assessment/Plan: Patient seen and examined, did complain of pain at the catheter site. Otherwise she has no other complaints. Her blood pressure continues to remain high. She was seen by cardiology and Dr. Jones is recommending to increase the dose of her nifedipine. She will be switched to oral Dilaudid. Otherwise she is medically stable for discharge today.
[2017-03-11 08:23] VITALS: BP 200/100
--- NOTE | 2017-03-11 08:27 | NUR ---
NURSING NOTE: BP RECHECK AT THIS TIME 200/100, HR 62. MICHAELA IN FLIGHT REFUELING SYSTEM REPAIRER AT BEDSIDE. LOSARTAN AND NIFEDIPINE GIVEN AT THIS TIME PER MD ORDER. WILL RECHECK IN 1 HOUR, PT DENIES CHEST PAIN, C/O PAIN AT [facility] CATH SITE; SORENESS AND THROBBING PER PT. IN FLIGHT REFUELING SYSTEM REPAIRER AWARE.
--- NOTE | 2017-03-11 09:26 | PN- Cardiology ---
See Addendum Subjective Subjective: The patient continues to complain of discomfort at her catheter site. No other chest pain. No palpitations. No shortness of breath. No diaphoresis. Objective Vital Signs and I&Os Vital Signs Date Time Temp Pulse Resp B/P B/P Pulse O2 O2 Flow FiO2 Mean Ox Delivery Rate 03/11 826 62 200/100 03/11 0826 60 200/100 03/11 0823 98.0 61 20 200/100 97 Room Air 03/11 0712 98.0 68 20 192/108 95 Room Air 03/11 0630 192/108 03/11 0629 192/108 03/10 2249 77 170/90 03/10 2249 77 170/90 03/10 2220 98.1 77 18 170/90 94 03/10 1900 98.4 70 22 143/80 95 Room Air 03/10 1745 71 194/90 03/10 1740 98.1 71 20 194/90 95 Room Air 03/10 1120 98.0 64 20 160/80 97 Room Air Intake & Output 03/11 1600 03/11 0800 03/11 0000 03/10 1600 03/10 0800 03/10 0000 Intake Total 20 290 135.5 568 Output Total 450 0 0 0 Balance 20 -450 290 135.5 568 Intake, IV 20 40 135.5 168 Intake, Oral 250 0 400 Number 0 0 0 Bowel Movements Output, Urine 450 0 0 0 Patient 160 lb 157 lb 156 lb Weight Weight Standing Scale Chair scale Measurement Method Physical Exam: Gen: The patient is in no acute distress HEENT: Normal nose, ears, and oropharynx. Pupils equal bilaterally. Conjunctiva normal. Neck: Supple with no JVD, no masses, and no thyromegaly Lungs: Decreased breath sounds with normal respiratory effort Heart: RRR, S1, S2, no murmurs. 1+ peripheral edema, 1+ pulses in the lower extremities bilaterally Abdomen: Soft, nontender, no masses. No hepatomegaly. No splenomegaly Extremities: No clubbing or cyanosis. Normal muscle strength in the upper and lower extremities Skin: Normal skin turgor with no skin ulcers or lesions noted. Current Medications: Current Medications Sig/Bryan Start time Last Medication Dose Route Stop Time Status Admin Acetaminophen 650 MG Q6P PRN 03/04 115 AC PO Acetaminophen/ 1 TAB Q6P PRN 06/08 0115 DC Hydrocodone Bitart PO Alprazolam 0.5 MG DAILY NEEDED PRN 03/04 0145 DC 03/11 PO 03/11 0144 0129 Apixaban 5 MG BID 03/10 2200 DC PO Apixaban 5 MG BID 03/10 2200 AC 03/10 PO 2258 Calcium 600 MG BID 03/04 1000 AC 03/10 PO 2249 Cefazolin Sodium 1,500 MG MoWeFr 03/08 09 AC 03/08 Sodium Chloride 100 ML IV 1328 Clonidine 3 PAT ONCE A WEEK 03/05 1115 AC 03/05 TOP 1333 Heparin Sodium 25,000 UNIT Q24H 03/10 2245 CAN (Porcine) IV Sodium Chloride 500 ML Heparin Sodium 0 .STK-MED ONE 03/10 0925 DC (Porcine) IV Hydralazine HCl 100 MG TID 03/04 1045 AC 03/11 PO 0630 Hydromorphone HCl 0.4 MG ONCE ONE 03/11 0845 DC 03/11 IV 03/11 0846 0847 Hydromorphone HCl 0.4 MG ONCE ONE 03/11 0130 DC 03/11 IV 03/11 0131 0129 Hydromorphone HCl 0.6 MG ONCE ONE 03/10 2045 DC 03/10 IV 03/10 2046 2046 Hydromorphone HCl 1 MG ONCE ONE 03/10 1845 DC 03/10 IV 03/10 1846 1846 Hydromorphone HCl 1 MG ONCE ONE 03/10 1315 DC 03/10 IV 03/10 1316 1330 Hydromorphone HCl 1 MG Q6-PRN PRN 03/06 1845 AC 03/11 IV 0627 Labetalol HCl 200 MG BID 03/05 2200 AC 03/11 PO 0629 Losartan Potassium 100 MG DAILY 03/04 1045 AC 03/11 PO 0826 Nifedipine 30 MG DAILY 03/07 1000 AC 03/11 PO 0826 Omeprazole 20 MG 0700,1600 08 0700 AC 03/11 PO 0630 Ondansetron HCl 4 MG Q6P PRN 03/04 1015 AC 03/05 IV 0559 Results Last 48 Hrs of Labs/Mics: Laboratory Tests 03/10/17 1515: APTT Cancelled 03/10/17 0400: PT Cancelled, INR Cancelled 03/10/17 0325: Anion Gap 10, Estimated GFR 8 L, BUN/Creatinine Ratio 3.5 L, PT 11.9, INR 1.13 , APTT 68 H, CBC w Diff NO MAN DIFF REQ, RBC 2.80 L, MCV 91.1, MCH 29.6, RDW 16.9 H, MPV 8.9, Gran % 57.0, Lymphocytes % 27.9, Monocytes % 7.0, Eosinophils % 7.5 H, Basophils % 0.6, Absolute Granulocytes 5.7, Absolute Lymphocytes 2.8, Absolute Monocytes 0.7 H, Absolute Eosinophils 0.8, Absolute Basophils 0.1, PUBS MCHC 32.5 L 03/09/172004: APTT 57 H Assessment/Plan Assessment/Plan Assessment: 1. Hypertension, uncontrolled 2. Sepsis with Blood culture positive for Staph aureus secondary to possible IJ line infection. 3. ESRD on HD with history of prior PD 4. History of CVA 5. History of severe atherosclerotic thoracic aorta vascular disease. 6. Left internal jugular vein thrombosis 7. No vegetation seen on AARON Plan: * Continue antibiotics as per ID * Increase nifedipine XL to 60 mg daily for better control of hypertension * Continue other cardiac medications Continue telemetry? No
[2017-03-11 09:38] VITALS: BP 168/90
--- NOTE | 2017-03-11 09:41 | NUR ---
NURSING NOTE: BP 168/90, HR 64, REPORTED TO MICHAELA TINSEL MACHINE OPERATOR.PT STATES PAIN MEDS "HELPED A LITTLE" NO FURTHER ORDERS AT THIS TIME.
[2017-03-11] MEDS ORDERED: DILAUDID2 M1 PO ×2 (12:13→13:27)
[2017-03-11] MEDS ORDERED: CEFAZOLIN1 GM/50 M1 IV (12:41)
[2017-03-11] MEDS ORDERED: PROCARDIA XL30 M1 PO ×2 (12:57→13:32)
[2017-03-11] MEDS ORDERED: CLONIDINE1 EACH TOP ×2 (13:21→13:32)
[2017-03-11] MEDS ORDERED: LABETALOL HCL100 M1 PO ×2 (13:23→13:32)
--- NOTE | 2017-03-11 19:48 | Discharge Summary ---
See Addendum Visit Information Visit Dates Admission Date: 03/03/17 Discharge Date: 03/11/17 Hospital Course Course Attending Physician: DEEJAY FISHER MD Primary Care Physician: CLARA ANGEL MD Consulting Request: 1 Consulting Specialty: Nephrology Consulting Physician: Dr. Debby MD Reason for Consult: ESRD on HD Consulting Request: 2 Consulting Specialty: Infectious Disease Consulting Physician: Dr. Mercedes MD Reason for Consult: Infected HD catheter Consulting Request: 3 Consulting Specialty: Cardiology Consulting Physician: Dr. Karen MD Reason for Consult: Resistant HTN Hospital Course: Ms. Wilson is a 31 year old female with past medical history significant for ESRD on HD, resistant HTN with multiple hospitalizations for hypertensive urgency and previous ischemic and hemorrhagic strokes with residual minimal left -sided weakness and dysarthria who presented to [facility] on 03/04/17 with chief complaint of fever and chills. In the ED: Vital signs showed T 102.6, HR 98, RR 20, BP 220/120 and O2 sat 93% on RA. Labs were significant for WBC 15, 95.4% granulocytes, 22 bands, H&H 9.5/ 28.8, Plt 300, Na 134, K 4.6, Cl 97, HCO3 23, BUN/cre 29/6.8, Glu 92, lactic acid 0.7, phos 4.8, trop 0.05, negative betaHCG. Physical exam showed: General Appearance Oriented X3, No Acute Distress, Drowsy HEENT Atraumatic, Dry Mucous Membranes Neck Supple Cardiovascular Regular Rate, Normal S1, Normal S2 Lungs Clear to Auscultation Abdomen Soft, No Tenderness, Positive Bowel Sounds, Peritoneal Dialysis Catheter in Place with no Erythema, Tenderness or Swelling at the Site Extremities No Clubbing, No Cyanosis, No Edema, RIJ in place with Surrounding Erythema and Tenderness, Site of Old Stitch Medial to RIJ with Erythema and Tenderness Patient was admitted to the general medicine floor and the following was the management: 1. Sepsis: Patient met SIRS criteria for sepsis on admission with fever to 102.6 and leukocytosis with WBC count of 15.0. Etiology was noted to be likely the RIJ catheter with erythema and tenderness at the site. Pneumonia was unlikely in the absence of respiratory symptoms and consolidation on CXR. Patient is anuric at baseline thus urinary source was ruled out. Randa was given 1 dose of vancomycin and ceftazidime in the ED. Of note, there was a history of MRSA sepsis attributed to an infected port-a-cath in September 2014 treated at [facility]. Ame was brought to the general medicine floor, had blood cultures drawn and was continued on vancomycin pending ID recommendations. After discussion between hospitalist, welding machine operator helper gas and infectious disease, it was recomended that patient had RIJ HD catheter removed. Patient deferred the procedure but eventually was amenable and this was removed on 03/08/17. She was switched to cefazolin after dialysis for antibiotic coverage. A follow up AARON was performed and ruled out vegetations as a complication. Patient remained without bactial growth on cultures for 72 hours and therefore HD catheter was replaced without complication. She tolerated subsequent HD well. She had PICC line placed on 03/10/17 for outpatient IV cefazolin infusion Wednesday, Wednesday, Wednesday. She should follow up with her PCP within 7 days of discharge for continued care. 2. ESRD on HD: Randa was switched from peritoneal dialysis to HD one month ago due to noncompliance issues. Nephrology consult was placed from admission. Patient was continued on HD and as noted above, RIJ HD catheter was removed and subsequently replaced secondary to infected catheter. She will continue HD after discharge and follow up with Dr. Debby MD after disharge. 3. Resistant HTN: Multiple hospitalizations for hypertensive urgency felt to be 2/2 medication and dialysis noncompliance. Patient follows with fork lift technician Dr. Kodi MD. Ltfvd-uf-sruqxotem meds included amlodipine 10 mg PO daily, clonidine patch, hydralazine 100 mg PO TID, labetalol 300 mg PO BID and losartan 100 mg PO daily. BP was elevated to 220/1220 on initial presentation but later came down to 120/70. Rapid drop in BP was concerning for impending septic shock. CT Head with no acute intracranial findings. Cardiology was consulted and recommendations appreciatd. All anti-hypertensives resumed and as course of hospitalization continued, patient's blood pressure was persistently elevated and clonidine patch increased to TTS-3. Patient had both TTE and AARON during admission as added below. She will follow up with Dr. Kodi MD after discharge for continued care. 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 Patient was on eliquis prior to this hospitalization. She was transitioned to heparin drip during her stay as she required multiple procedures, including HD catheter removal and then replacement. She was transitioned back to eliquis and will continue this after discharge. 5. Duodenitis/gastritis: Patient was continued on her home PPI and will continue omeprazole after discharge. 6. Anxiety: Patient was continued on home xanax 0.5 mg PO daily as needed. 7. Code status: FULL. 8. Diet: Renal dialysis. Complications: None. Allergies: Coded Allergies: Iodinated Contrast- Oral and IV Dye (Iodinated Contrast Media - Oral and) ( Intermediate, HIVES AND SWELLING 12/21/16) morphine (Intermediate, HIVES 12/21/16) Penicillins (RASH 12/21/16) hydroxyzine (PER PT UNKNOWN 12/21/16) lisinopril (ANGIODEMA 12/21/16) LEIDA Inhibitors (ANGIODEMA 12/21/16) Significant Procedures: Head CT: FINDINGS: In comparison to the prior examination, there are no significant interval changes in the appearance of the brain. Redemonstrated is a focal region of hypoattenuation within the left paramedian occipital lobe, which may correspond to a focal region of encephalomalacia in the setting of prior ischemia. Focal regions of hypoattenuation are also visualized within the right basal ganglia, corresponding to the site of the patient's reported prior hemorrhagic stroke. There are focal areas of hypoattenuation within the periventricular white matter as well as within the deep cortical white matter which may reflect sequela of chronic microvascular ischemia. There is unchanged mild parenchymal volume loss, which is abnormal given the patient's age, with proportional prominence of the sulci and ventricles. The ventricles are stable in size, without hydrocephalus. The basilar cisterns are patent. No acute intracranial hemorrhage, mass or mass effect or abnormal extra-axial fluid collections. The density within the dural venous sinuses is within normal limits. There are no focal areas of hypoattenuation within a vascular distribution to suggest acute transcortical ischemia. No acute calvarial abnormality is identified. Soft tissues appear unremarkable. The imaged paranasal sinuses and mastoid air cells are well aerated. IMPRESSION: 1. No acute intracranial abnormality. 2. Stable chronic changes within the brain, as detailed above. CXR: IMPRESSION: 1. Small right-sided pleural effusion. Probable left-sided pleural effusion. Prominence of the interstitium is nonspecific but may reflect interstitial pulmonary edema. 2. Mild central venous congestion, without overt pulmonary edema. 3. Interval placement of a right jugular central venous catheter, with the catheter tip visualized terminating within the distal SVC as well as within the proximal aorta. No pneumothoraces are identified. Echo: CONCLUSIONS 1. Aortic sclerosis is present with no valvular stenosis or insufficiency. 2. Thickening and calcification of the mitral leaflets is present with moderate anular calcification and mitral insufficiency which appears to be mild to moderate in severity. Moderate left atrial enlargement is noted. 3. A very small pericardial effusion is present. 4. A moderate sized left pleural effusion is present. 5. The left ventricular chamber size is normal with severe concentric LVH and a normal ejection with diastolic dysfunction and no resting wall motion abnormalities. 6. Enlargement of the right heart chambers is noted with tricuspid insufficiency which appears to be mild in severity. Severe pulmonary hypertension is present with an estimated RV systolic pressure of at least 66 mmHg. 7. There are no obvious vegetative lesions identified. If clinically indicated, a AARON would better assess for potential vegetative lesions. Venous doppler: IMPRESSION: Deep venous thrombosis of the left upper extremity, with a 0.8 x 2.4 cm mobile echogenic thrombus identified along the periphery of the left internal jugular vein. The patient reportedly had an ultrasound of the left upper extremity 2 weeks ago at an outside hospital which also demonstrated thrombus within the left internal jugular vein. However, images from that exam are not available for comparison. The remaining imaged veins of the left upper extremity are patent. Radiology report: DESCRIPTION: The right chest wall was prepped and draped. The retention sutures on the patient's implanted low-lying with cut and removed. The cuff of the implanted catheter was subsequently freed from the ingrowth tissues using gentle traction. Subsequently, the catheter was removed in its entirety. A sterile dressing was applied to the catheter entry site. The patient tolerated the procedure well. The catheter tip was sent for culture. IMPRESSION: Successful removal of implanted right-sided tunneled hemodialysis catheter. AARON: CONCLUSIONS Normal size left ventricle. Normal left ventricular ejection fraction visually estimated at > 60%. Left ventricular hypertrophy. Right atrial dilatation. Left atrial dilatation. Moderate mitral annular calcification. Mitral valve is thickened with no definite vegetations seen. Mild mitral regurgitation. Mild tricuspid regurgitation. Mild atherosclerosis of the descending thoracic aorta is noted. Structurally normal trileaflet aortic valve with no vegetations seen. Structurally normal tricuspid valve with no vegetations seen. PICC line insertion: IMPRESSION: Successful placement of tunneled left sided jugular permacath. Occluded right internal jugular vein with several prominent collaterals in the right neck. 1.6 x 0.4 cm thrombus within the left mid/lower internal jugular vein, decreased from prior ultrasound when it measured 2.4 x 0.8 cm. The permacath venous entry site is placed proximal to this thrombus. Disposition Summary Disposition Principal Diagnosis: Sepsis secondary to infected RIJ HD catheter Additional Diagnosis: ESRD on HD Resistant HTN Left IJ thrombosis Duodenitis/gastritis Anxiety Discharge Disposition: home or self care Discharge Instructions General Discharge Information Code Status: Full Code Patient's Diet: Renal dialysis diet. Patient's Activity: Self-limited, as tolerated. Follow-Up Instructions/Appts: Please follow up with your PCP within 1 week. Please follow up with your welding machine operator helper gas within 1 week. Please take all medications as directed. Please continue with hemodialysis. Medications at Discharge Discharge Medications: Stop taking the following medications: Amlodipine Besylate (Amlodipine Besylate) 10 MG TABLET ORAL DAILY Clonidine (Clonidine) 0.2 MG/24 HOUR PATCH.TDWK On the skin EVERY WEDNESDAY Qty = 4 Labetalol HCl (Labetalol HCl) 100 MG TABLET ORAL TWICE DAILY Qty = 30 Continue taking these medications: Epoetin Carlos (Epogen) 10,000 UNIT/ML VIAL 10,000 Unit Inject into fatty tissue EVERY 2 WEEKS Comments: NOT GIVEN IN HOSPITAL Losartan (Cozaar) 100 MG TABLET 1 Tablet ORAL DAILY Comments: Last Taken: 03/11/17 Time: 0830 AM Calcium (Elemental-Fr Calcarb) (Calcium Carbonate) 500 MG/5ML ORAL.SUSP 20 Milliliters ORAL TWICE DAILY Comments: Last Taken: 03/11/17 Time: 0900AM Alprazolam (Xanax) 0.5 MG TABLET 1 Tablet ORAL DAILY NEEDED as needed for ANXIETY Comments: Last Taken: 03/11/17 Time: 0100AM Hydralazine HCl (Hydralazine HCl) 100 MG TABLET 1 Tablet ORAL THREE TIMES DAILY Comments: Last Taken: 03/11/17 Time: 47673 AM Ondansetron HCl (Zofran) 4 MG TABLET 1 Tablet ORAL Every 6-8 Hours as Needed as needed for NAUSEA Comments: NOT GIVEN IN THE HOSPITAL Omeprazole (Omeprazole) 20 MG CAPSULE.DR 1 Tablet ORAL TWICE DAILY Qty = 14 Comments: Last Taken: 03/11/17 Time: 0600AM Apixaban (Eliquis) 5 MG TABLET 1 Tablet ORAL TWICE DAILY Qty = 60 Comments: Last Taken: 03/11/17 Time: 0900AM Mupirocin (Mupirocin) 2 % OINT...G. 1 Application On the skin As Directed Qty = 22 Instructions: apply to affected area(s) Comments: NOT GIVEN Start taking the following new medications: Hydromorphone HCl (Dilaudid) 2 MG TABLET 1 Tablet ORAL EVERY SIX HOURS NEEDED as needed for pain 7-10 Qty = 15 No Refills Instructions: . Comments: Last Taken: 03/11/17 Time: 1130AM Nifedipine (Procardia XL) 30 MG TAB.ER.24 2 Tablet ORAL DAILY Qty = 30 No Refills Instructions: . Comments: Last Taken: 03/11/17 Time: 0830AM Labetalol HCl (Labetalol HCl) 100 MG TABLET 2 Tablet ORAL TWICE DAILY Qty = 60 No Refills Instructions: . Comments: Last Taken: 03/11/17 Time: 0630AM Clonidine (Clonidine) 0.1 MG/24 HOUR PATCH.TDWK 3 Patch On the skin Once a Week Qty = 30 No Refills Instructions: . Comments: Last Taken: 03/05/17 Time: 1330PM Cefazolin (Cefazolin 1 Gm-D5w Bag) 1 GRAM/50 ML PIGGYBACK 1,500 Milligram INTRAVEN MoWeFr Qty = 11 No Refills Comments: Last Taken: 03/10/17 Time: 1600 Copies To: DEBBY COTA,ABRAHAM Corona; DANDRE CANTOR MD Attending MD Review Statement Documenting Attending: CYNTHIA GUERRA MD
== END 2017-03-11 14:10 | DRG 182 ==
LOC: ERH 19:17 → 2NB 23:34 → CRI 23:34 → ERHI 23:34 → 2NB 23:34 → ENRESERV 03-04 00:27 → CRI 03-04 02:27 → 2NB 03-04 19:59 → ENPENDDIS 03-11 13:45 → 2NB 03-11 14:10
PROVIDERS: Dermatology; Hospitalist; Internal Medicine; Internal Medicine Nephrology; Physician Assistant; Preventive Medicine Public Health & General Preventive Medicine; Student in an Organized Health Care Education/Training Program; ADMIT Student in an Organized Health Care Education/Training Program
PROC: 5A1D60Z (ICD-10-PCS; 2017-03-04)
PROC: 05PY03Z Removal of Infusion Device from Upper Vein, Open Approach (ICD-10-PCS; 2017-03-08)
PROC: B246ZZ4 Ultrasonography of Right and Left Heart, Transesophageal (ICD-10-PCS; principal; 2017-03-09)
PROC: 02HV33Z Insertion of Infusion Device into Superior Vena Cava, Percutaneous Approach (ICD-10-PCS; 2017-03-10)
PROC: B5181ZA Fluoroscopy of Superior Vena Cava using Low Osmolar Contrast, Guidance (ICD-10-PCS; 2017-03-10)
DX: T82.7XXA Infection and inflammatory reaction due to other cardiac and vascular devices, implants and grafts, initial encounter (principal); N18.6 End stage renal disease; A41.9 Sepsis, unspecified organism; I12.0 Hypertensive chronic kidney disease with stage 5 chronic kidney disease or end stage renal disease; Z99.2 Dependence on renal dialysis; E21.3 Hyperparathyroidism, unspecified; E66.9 Obesity, unspecified; T82.868A Thrombosis due to vascular prosthetic devices, implants and grafts, initial encounter; I69.354 Hemiplegia and hemiparesis following cerebral infarction affecting left non-dominant side; K29.70 Gastritis, unspecified, without bleeding; F41.9 Anxiety disorder, unspecified; K29.80 Duodenitis without bleeding; Y84.8 Other medical procedures as the cause of abnormal reaction of the patient, or of later complication, without mention of misadventure at the time of the procedure
CPT/HCPCS: 04007; 2NBP; 87070; 87075; 87184; 87205; ERO; 36415; 77001; 82436; 87040; 87086; 87147; 93005; 93010; 93306; 93325; 96365; 96375; 99291; C1752; C1769; J0131; J0690; J0713; J1170; J1642; J1644; J1885; J2405; J3370; J3490; J7040

== ENCOUNTER 2017-03-22 07:15 | Inpatient (IN) | payer OTHER ==
[~2017-03-22] VITALS: Ht 154.9 cm; Wt 72.7 kg
[~2017-03-22 07:15] MED LIST changes: +CEFAZOLIN1 GM/50 M1 IV; +CLONIDINE1 EACH TOP; +ELIQUIS5 M1 PO; +MUPIROCIN22 GM TOP; +PROCARDIA XL30 M1 PO
--- NOTE | 2017-03-22 07:22 | NUR ---
BIBA FROM HOME, C/O LEFT FLANK PAIN WITH NAUSEA SINCE YESTERDAY. PAIN IS WORSE TODAY, 03/06. PMH: ESRD; DUE FOR DIALYSIS TODAY. HAS ASHLEY CATHETER IN PLACE IN LEFT CHEST WALL.
[2017-03-22 07:47] LABS: ABSOLUTE BASOPHIL COUNT 0 /CUMM (0.0-0.2); ABSOLUTE EOSINOPHIL COUNT 0.1 /CUMM (0.0-0.7); ABSOLUTE GRANULOCYTE CT 5.2 /CUMM (1.4-6.5); ABSOLUTE LYMPH COUNT 0.6 /CUMM (1.2-3.4); ABSOLUTE MONOCYTE COUNT 0.2 /CUMM (0.10-0.60); BASOPHIL % 0.1 % (0.0-2.0); EOSINOPHIL % 2.4 % (0-5); HEMATOCRIT 25.1 % (37-47); MEAN CORPUSCULAR HGB 28.9 PG (27.0-31.0); MEAN CORPUSCULAR HGB CONC 32.8 G/DL (33.0-37.0); MEAN CORPUSCULAR VOLUME 88.3 FL (81.0-99.0); MEAN PLATELET VOLUME 8.2 FL (7.4-10.4); RBC DISTRIBUTION WIDTH 16.6 % (11.5-14.5); RED BLOOD CELL CT 2.84 /CUMM (4.20-5.40); WHITE BLOOD CELL COUNT 6.2 /CUMM (4.8-10.8)
--- NOTE | 2017-03-22 07:48 | NUR ---
EVALUATED BY DR. VANCE.
--- NOTE | 2017-03-22 07:54 | ED GI/GU/ABDOMINAL COMPLAINT ---
History of Present Illness General Chief Complaint: Abdominal Pain/Flank Pain Stated Complaint: BIBA L SIDE FLANK PAIN Source: patient, old records Exam Limitations: poor historian Vital Signs & Intake/Output Vital Signs & Intake/Output Vital Signs Date Time Temp Pulse Resp B/P B/P Pulse O2 O2 Flow FiO2 Mean Ox Delivery Rate 03/24 0038 98.2 03/23 2221 101.0 85 18 140/80 95 Room Air 03/23 2135 86 140/80 03/23 2135 86 140/80 03/23 2131 101.1 03/23 1701 69 140/90 03/23 1700 69 140/90 03/23 1425 98.6 73 18 138/80 100 Room Air 03/23 1308 97.8 03/23 0959 99.9 03/23 0952 74 180/90 03/23 0951 74 180/90 03/23 0951 74 180/90 03/23 0951 74 180/90 03/23 0657 99.0 ED Intake and Output 03/24 0000 03/23 1200 Intake Total 750 100 Output Total Balance 750 100 Intake, IV 50 Intake, Oral 700 100 Allergies Coded Allergies: Iodinated Contrast- Oral and IV Dye (Iodinated Contrast Media - Oral and) ( Intermediate, HIVES AND SWELLING 12/21/16) morphine (Intermediate, HIVES 12/21/16) Penicillins (RASH 12/21/16) hydroxyzine (PER PT UNKNOWN 12/21/16) lisinopril (ANGIODEMA 12/21/16) LEIDA Inhibitors (ANGIODEMA 12/21/16) Reconcile Medications Alprazolam (Xanax) 0.5 MG TABLET 1 TAB PO DAILY NEEDED PRN ANXIETY ( Reported) Apixaban (Eliquis) 5 MG TABLET 1 TAB PO BID BLOOD THINNER (Reported) Calcium (Elemental-Fr Calcarb) (Calcium Carbonate) 500 MG/5ML ORAL.SUSP 20 ML PO BID SUPPLEMENT (Reported) Cefazolin (Cefazolin 1 Gm-D5w Bag) 1 GRAM/50 ML PIGGYBACK 1,500 MG IV MoWeFr bacteremia Clonidine 0.1 MG/24 HOUR PATCH.TDWK 3 PAT TOP QW hypertension . Epoetin Carlos (Epogen) 10,000 UNIT/ML VIAL 10,000 UNIT SC Q2W ANEMIA (Reported ) Hydralazine HCl 100 MG TABLET 1 TAB PO TID HTN (Reported) Hydromorphone HCl (Dilaudid) 2 MG TABLET 1 TAB PO Q6P PRN pain 7-10 . Labetalol HCl 100 MG TABLET 2 TAB PO BID HYPERTENSION . Losartan (Cozaar) 100 MG TABLET 1 TAB PO DAILY HEART (Reported) Mupirocin 2 % OINT...G. 1 UDAY TOP AD CATH (Reported) apply to affected area(s) Nifedipine (Procardia XL) 30 MG TAB.ER.24 2 TAB PO DAILY high blood pressure . Omeprazole 20 MG CAPSULE.DR 1 TAB PO BID ESOPHAGITIS Ondansetron HCl (Zofran) 4 MG TABLET 1 TAB PO Q6-8P PRN NAUSEA (Reported) Triage Note: BIBA FROM HOME, C/O LEFT FLANK PAIN WITH NAUSEA SINCE YESTERDAY. PAIN IS WORSE TODAY, 03/06. PMH: ESRD; DUE FOR DIALYSIS TODAY. HAS [place] CATHETER IN PLACE IN LEFT CHEST WALL. Triage Nurses Notes Reviewed? yes ? N Is pt currently ? No HPI: Patient presents for evaluation of left flank pain that began gradually yesterday. Patient states it became worse overnight and tends to get worse with deep inspiration or movement. It is located beneath the left breast and wraps around to the left mid back. Patient states she has had chills although she states she always feels cold and chilly. She doesn't believe she had a fever and denies any associated cough chest pain diarrhea rashes oh contacts or recent travel. She states she's felt a little short of breath and is had nausea with dry heaves. She is recently admitted to [facility] for sepsis and uncontrolled hypertension. In addition patient complains of right arm pain. Past History Travel History Traveled to [place] past 21 day No Medical History Any Pertinent Medical History? 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) MRSA peritonitis drug fever attributed to vancomycin History of MRSA: Yes History of VRE: No History of CDIFF: No Surgical History Surgical History: , hernia repair-inguinal, peritoneal dialysis catheter placement [place] cath placement and removal parathyroidectomy Psychosocial History Who do you live with Spouse Services at Home None What is your primary language Egyptian Tobacco Use: Never used ETOH Use: denies use Family History Family History, If Any: FATHER FH: CAD (coronary artery disease) FH: HTN (hypertension) FH: stroke grandmother FH: colon cancer SISTER ASD (atrial septal defect) MOTHER FH: diabetes mellitus FH: HTN (hypertension) Hx Contributory? No Review of Systems Review of Systems Constitutional: Reports: no symptoms. EENTM: Reports: no symptoms. Respiratory: Reports: no symptoms. Cardiovascular: Reports: no symptoms. GI: Reports: see HPI. Genitourinary: Reports: no symptoms. Musculoskeletal: Reports: no symptoms. Skin: Reports: no symptoms. Neurological/Psychological: Reports: no symptoms. Hematologic/Endocrine: Reports: no symptoms. Immunologic/Allergic: Reports: no symptoms. All Other Systems: Reviewed and Negative Physical Exam Physical Exam Gastrointestinal: see below Comments: Gen.: Well-nourished, well-developed, no acute respiratory distress. Uncomfortable at times. Head: Normocephalic, atraumatic. Eyes: Normal inspection bilaterally Ears: Normal inspection bilaterally Nose: Normal inspection Throat/mouth : Moist mucosa Neck: Supple, full range of motion, no goiter, right IJ puncture wound healing well with no signs of infection currently Heart: Regular rate and rhythm, pansystolic murmur Lungs: Clear to auscultation bilaterally with normal air entry Chest: Nontender Back: Normal range of motion Abdomen: Soft, nontender, nondistended, normal bowel sounds Extremities: Normal range of motion grossly, equal radial pulses, no cyanosis clubbing or edema Neurologic: Cranial nerves grossly intact, speech is clear Skin: warm and dry Psychiatric: Calm, cooperative, no apparent delusions or hallucinations Core Measures ACS in differential dx? No Severe Sepsis Present: No BC x2: Yes Lactic Acid x2: Yes IV ABX Broad Spectrum: Yes NS/LR Started: No (DIALYSIS PT, HYPERTENSIVE) Septic Shock Present: No Progress Differential Diagnosis: PNEUMONIA, BACTEREMIA, RENAL COLIC, EARLY SHINGLES, MUSCLE STRAIN Plan of Care: Orders Procedure Date/time Status CBC WITHOUT DIFFERENTIAL 03/24 06 Active BASIC ELECTROLYTES PLUS BUN&CR 03/24 0600 Active Hemo-Dialysis 03/23 0241 Active MRI-THORACIC SPINE 03/23 UNK Active ECHOCARDIOGRAM 03/23 UNK Active Current Medications Sig/Bryan Start time Last Medication Dose Stop Time Status Admin Labetalol HCl 200 MG TID 03/23 1600 AC 03/23 (Trandate-Normodyne 2135 200MG Tab) Hydromorphone HCl 1 MG Q6P PRN 03/23 1315 AC 03/24 (Dilaudid) 0132 Ondansetron HCl 4 MG Q6P PRN 03/23 1315 AC 03/23 (Zofran) 2041 Losartan Potassium 100 MG DAILY 03/23 1000 AC 03/23 (Cozaar) 0951 Nifedipine 60 MG DAILY 03/23 1000 AC 03/23 (Procardia XL) 0952 Apixaban 5 MG BID 03/22 2200 AC 03/23 (Eliquis) 2135 Cefazolin Sodium 1,500 MG MoWeFr@03/22 2000 AC 03/22 (Kefzol-Ancef Inj) 2030 Sodium Chloride 100 ML (Normal Saline 0.9%) Epoetin Carlos 6,000 UNIT Wednesday .. 03/22 1600 AC (Epogen Inj 3000 (DIALYSIS PATIENTS) Hydralazine HCl 100 MG TID 03/22 1600 AC 03/23 (Apresoline) 2135 Paricalcitol 8 MCG Wednesday .. 03/22 1600 AC (Zemplar Inj. 2MCG/ ML) Clonidine 3 PAT Q168 03/22 1400 AC (Catapres) Alprazolam 0.5 MG DAILY NEEDED PRN 03/22 1245 AC 03/23 (Xanax) 03/29 1244 1705 Omeprazole 20 MG BID 03/22 1245 AC 03/23 (Prilosec) 2135 Acetaminophen 650 MG Q4P PRN 03/22 1215 AC 03/23 (Tylenol) 2131 Diagnostic Imaging: Discussed w/RAD: Radiology Read, Ultrasound. Radiology Impression: no acute abnormality (ultrasound renal), u/e doppler with no indication of dvt. CXR Impression: PATIENT: TERI BORRERO PRESENT AGE: 31 PATIENT ACCOUNT NO: [id number] : 87 LOCATION: [facility] ORDERING PHYSICIAN: KD VANCE MD SERVICE DATE: 03/22/17 EXAM TYPE: RAD - XRY-PORTABLE CHEST XRAY EXAMINATION: XR PORTABLE CHEST CLINICAL INFORMATION: Left flank pain. Presumptive diagnosis: Pneumonia. Per chart: 31-year-old female with ESRD requiring dialysis. History of venous thrombosis. COMPARISON: Chest x- ray on 03/03/2017. (Pleural effusions. Edema.). TECHNIQUE: Portable AP portable semierect view of the chest was obtained. FINDINGS: A new dialysis catheter is in place directed from the left internal jugular vein into the distal SVC and right atrium. The left pleural effusion has increased in volume. A trace right effusion is also seen. There is no sign of overt pulmonary edema. IMPRESSION: 1. Increasing pleural effusion on the left. This presumably results in some compression atelectasis of the left lower lobe. Pneumonia would be difficult to exclude in this setting. 2. Trace right pleural effusion. 3. Dialysis catheter in place. DICTATED BY: KATIE MARTINES MD DATE/TIME DICTATED:03/22/17814 LOTTERY MANAGER:KANDICE DATE/TIME TRANSCRIBED:03/22/17814 CONFIDENTIAL, DO NOT COPY WITHOUT APPROPRIATE AUTHORIZATION. <Electronically signed in Other Vendor System> SIGNED BY: KATIE MARTINES MD 03/22/1723 Initial ED EKG: NSR, rate (75), LVH Prior EKG: unchanged Comments: Patient does not meet sepsis criteria and at this point having not filled temperature heart rate OR respiratory rate criterion. In addition it will be difficult to assess for end organ damage this patient has renal dialysis and is currently on Eliquis (cannot interpret creatinine or INR). 03/22/2017 11:02:18 AM hospitalist paged for a second time. Awaiting call back. 03/22/2017 11:22:58 AM patient's case discussed with the hospitalist (the community integration specialist initially paged the wrong hospitalist). Dr. Narayan is requesting a telemetry admission given the possible need for intravenous antihypertensives. I have reviewed this patient's imaging studies vital signs and blood tests with him. Teri has been treated with not only Nitropaste but her usual antihypertensive medications. Departure Departure Disposition: STILL A PATIENT Condition: Stable Clinical Impression Primary Impression: Hypertensive urgency Secondary Impressions: Anemia, chronic disease Fever Qualifiers: Fever type: unspecified Qualified Code: R50.9 - Fever, unspecified Renal failure, chronic Qualifiers: Chronic kidney disease stage: unspecified stage Qualified Code: N18.9 - Chronic kidney disease, unspecified Referrals: CLARA ANGEL MD (PCP/Family) Departure Forms: Customer Survey General Discharge Information Admission Note Spoke With: SEBLE GALLEGO MD Documentation of Exam: Documentation of any treatments & extenuating circumstances including Concerns Regarding Discharge (functional status, medication knowledge or non-compliance, living conditions, etc.) that warrant an admission rather than observation: Patient has severely uncontrolled high blood pressure that requires treatment and close monitoring for adequate response. In addition the patient has a low- grade fever and was recently hospitalized for sepsis. This places her at high risk of repeat sepsis, hypotension, overwhelming infection and mortality. Given her renal dialysis, she is immune compromised as well. I feel she now requires hospitalization for close clinical monitoring of blood pressure with appropriate treatment. In addition temperature should be monitored along with white blood cell count and infectious disease consultation should be considered. Given the patient's recent hospitalization presumptive antibiotics should be continued until a source of infection is determined or ruled out. Given this I feel the patient will require a multiple day hospitalization. Patient should continue hemodialysis during her hospitalization. Critical Care Note Critical Care Note Critical Care Time: 30-74 min
--- NOTE | 2017-03-22 08:03 | NUR ---
EVALUATED BY DR. VANCE. MEDICATED FOR PAIN.
[2017-03-22 08:08] LABS: GRANULOCYTE % 83.8 % (42.2-75.2); PLATELET COUNT 365 /CUMM (130-400)
--- NOTE | 2017-03-22 08:15 | NUR ---
CRITICAL TEST RESULTS [id number] TERI BORRERO 31 F TESTS AND RESULTS: CREATININE 8.9 Results received and read back by: SAHIL CHAPMAN Results received date and time: 03/22/17 0816 The following provider was notified of the results, and read the results back: DR. Giancarlo VANCE Notified date and time: 03/22/17 at 0815
--- NOTE | 2017-03-22 08:23 | RADIOLOGY REPORT ---
EXAMINATION: XR PORTABLE CHEST CLINICAL INFORMATION: Left flank pain. Presumptive diagnosis: Pneumonia. Per chart: 31-year-old female with ESRD requiring dialysis. History of venous thrombosis. COMPARISON: Chest x-ray on 03/03/2017. (Pleural effusions. Edema.). TECHNIQUE: Portable AP portable semierect view of the chest was obtained. FINDINGS: A new dialysis catheter is in place directed from the left internal jugular vein into the distal SVC and right atrium. The left pleural effusion has increased in volume. A trace right effusion is also seen. There is no sign of overt pulmonary edema. IMPRESSION: 1. Increasing pleural effusion on the left. This presumably results in some compression atelectasis of the left lower lobe. Pneumonia would be difficult to exclude in this setting. 2. Trace right pleural effusion. 3. Dialysis catheter in place.
--- NOTE | 2017-03-22 08:34 | NUR ---
PT DIFFICULT STICK AFTER MULTIPLE STICKS ONLY ABLE TO OBTAIN ONE BLUE CULTURE BOTTLE..
--- NOTE | 2017-03-22 09:07 | NUR ---
C/O EPIGASTRIC AN BACK PAIN 06/06. MEDICATED FOR PAIN.
--- NOTE | 2017-03-22 09:10 | NUR ---
TO US VIA STRETCHER.
--- NOTE | 2017-03-22 09:51 | NUR ---
RETURNED FROM CT US.
--- NOTE | 2017-03-22 10:26 | ULTRASOUND REPORT ---
EXAMINATION: RIGHT UPPER EXTREMITY VENOUS ULTRASOUND CLINICAL INFORMATION: Right arm pain and swelling with history of DVT COMPARISON: None. There are upper extremity ultrasounds of the contralateral left arm. TECHNIQUE: Doppler spectral analysis and color flow Doppler imaging was performed of the right upper extremity. Compression and augmentation maneuvers were performed. FINDINGS: The right internal jugular vein, subclavian vein, axillary vein, brachial vein, cephalic vein, and visualized forearm veins were well-identified and normal. The basilic vein could not be visualized. They demonstrate normal compressibility and color fill-in. IMPRESSION: No evidence for right upper extremity deep vein thrombosis. The basilic vein was not visualized.
--- NOTE | 2017-03-22 10:30 | NUR ---
SLEEPING INTERMITTANTLY, WAKES UP AND YELLS OUT UPON MOVMENT.
--- NOTE | 2017-03-22 10:36 | ULTRASOUND REPORT ---
EXAMINATION: US RETROPERITONEAL COMPLETE (RENAL) CLINICAL INFORMATION: Left hydronephrosis, left renal stone.. COMPARISON: CT scan of the abdomen and pelvis 12/21/2016. TECHNIQUE: Real-time imaging of the kidneys and bladder. FINDINGS: RIGHT KIDNEY: 6.1 x 2.6 x 3.1 cm (SAG x AP x TRV). The kidney is small. It has normal contour. Echogenicity is diffusely increased. Renal cortical thickness is diffusely decreased. 2 small cysts are noted; 1.2 x 0.9 x 1.2 cm (mid pole) and 1.4 x 0.8 x 1.1 cm (lower pole. No echogenic calculi or focal parenchymal lesions are demonstrated. There is no hydronephrosis. LEFT KIDNEY: 7.8 x 3.3 x 2.9 cm (SAG x AP x TRV). The kidney is small. It has normal contour. Echogenicity is normal. Renal cortical thickness is diffusely decreased. There are 2 small cysts at the midpole; 0.7 x 0.8 x cm and 0.8 x 0.6 x 1.1 cm. There are no renal calculi. There is no hydronephrosis. BLADDER: Empty. Ureteral jets were not demonstrated. Free fluid is noted in the pelvis. IMPRESSION: 1. Both kidneys are small with cortical thinning, consistent with chronic medical renal disease. 2. There are small cysts in both kidneys. 3. No hydronephrosis or echogenic renal calculi are demonstrated.
--- NOTE | 2017-03-22 12:00 | History & Physical ---
LIAN SHOOK 03/22/17 1159: General Information and HPI MD Statement: I have seen and personally examined GISSELLTERI WASHBURN and documented this H& P. The patient is a 31 year old F who presented with a patient stated chief complaint of left flank pain. Source of Information: patient, old records Exam Limitations: no limitations History of Present Illness: This is a 31-year-old lady with past medical history history significant for ESRD on HD Wednesday/Wednesday/Wednesday, resistant HTN with multiple hospitalizations for hypertensive urgency and previous ischemic and hemorrhagic strokes with residual minimal left-sided weakness and dysarthria both of which are now resolved, legally blind on the left side, MRSA sepsis attributed to an infected Port-A-Cath in September 2014, sepsis physiology of right IJ catheter which was removed on 03/08/2017, 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 According to the patient, her pain started on Wednesday when she was in hoahaoism. She describes the pain as 8/10 constant, radiating to her back, denies lifting anything heavy or sudden change in position. Reports having nausea yesterday and therefore was not able to take her night time and this morning medications. Reports having chills last night and was not able to wear her clonidine patch. Denies any chest pain, numbness of breath, vomiting, dizziness, lightheadedness, headache, abdominal pain. Patient is anuric at baseline. She has peritoneal dialysis catheter in place, showing, she is awaiting surgical appointment for removal of peritoneal catheter. Denies EtOH, tobacco or illicit drug use. Allergies/Medications Allergies: Coded Allergies: Iodinated Contrast- Oral and IV Dye (Iodinated Contrast Media - Oral and) ( Intermediate, HIVES AND SWELLING 12/21/16) morphine (Intermediate, HIVES 12/21/16) Penicillins (RASH 12/21/16) hydroxyzine (PER PT UNKNOWN 12/21/16) lisinopril (ANGIODEMA 12/21/16) LEIDA Inhibitors (ANGIODEMA 12/21/16) Home Med list Alprazolam (Xanax) 0.5 MG TABLET 1 TAB PO DAILY NEEDED PRN ANXIETY ( Reported) Apixaban (Eliquis) 5 MG TABLET 1 TAB PO BID BLOOD THINNER (Reported) Calcium (Elemental-Fr Calcarb) (Calcium Carbonate) 500 MG/5ML ORAL.SUSP 20 ML PO BID SUPPLEMENT (Reported) Cefazolin (Cefazolin 1 Gm-D5w Bag) 1 GRAM/50 ML PIGGYBACK 1,500 MG IV MoWeFr bacteremia Clonidine 0.1 MG/24 HOUR PATCH.TDWK 3 PAT TOP QW hypertension . Epoetin Carlos (Epogen) 10,000 UNIT/ML VIAL 10,000 UNIT SC Q2W ANEMIA (Reported ) Hydralazine HCl 100 MG TABLET 1 TAB PO TID HTN (Reported) Hydromorphone HCl (Dilaudid) 2 MG TABLET 1 TAB PO Q6P PRN pain 7-10 . Labetalol HCl 100 MG TABLET 2 TAB PO BID HYPERTENSION . Losartan (Cozaar) 100 MG TABLET 1 TAB PO DAILY HEART (Reported) Mupirocin 2 % OINT...G. 1 UDAY TOP AD CATH (Reported) apply to affected area(s) Nifedipine (Procardia XL) 30 MG TAB.ER.24 2 TAB PO DAILY high blood pressure . 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) MRSA peritonitis drug fever attributed to vancomycin History of MRSA: Yes History of VRE: No History of CDIFF: No Surgical History Surgical History: , hernia repair-inguinal, peritoneal dialysis catheter placement [place] cath placement and removal parathyroidectomy Past Family/Social History Family History Relations & Conditions if any FATHER FH: CAD (coronary artery disease) FH: HTN (hypertension) FH: stroke grandmother FH: colon cancer SISTER ASD (atrial septal defect) MOTHER FH: diabetes mellitus FH: HTN (hypertension) Psychosocial History Who Do You Live With? child, parent Services at Home: None Primary Language: Afghan ETOH Use: denies use Living Will? yes Functional Ability ADLs Independent: dressing, eating, toileting, bathing. Ambulation: independent IADLs Independent: shopping, housework, finances, food prep, telephone, transportation , medication admin. Review of Systems Review of Systems Constitutional: Reports: chills, fever. Denies: malaise, weakness, unexplained weight loss. EENTM: Reports: no symptoms. Cardiovascular: Reports: see HPI. Denies: chest pain, edema, orthopena, palpitations, peripheral edema, syncope. Respiratory: Reports: no symptoms. GI: Reports: no symptoms. Genitourinary: Reports: no symptoms. Musculoskeletal: Reports: no symptoms. Skin: Reports: no symptoms. Neurological/Psychological: Reports: no symptoms. Hematologic/Endocrine: Reports: no symptoms. Immunologic/Allergic: Reports: no symptoms. All Other Systems: Reviewed and Negative Exam & Diagnostic Data Last 24 Hrs of Vital Signs/I&O Vital Signs Date Time Temp Pulse Resp B/P B/P Pulse O2 O2 Flow FiO2 Mean Ox Delivery Rate 03/22 1234 84 18 170/90 99 Room Air 03/22 1133 100.2 99 18 220/118 98 03/22 1045 84 220/118 03/22 1045 84 220/118 03/22 1012 99.4 84 18 220/118 99 Room Air 03/22 0858 84 18 220/110 99 Room Air 03/22 0722 100.1 82 20 230/120 93 Room Air Intake & Output 03/22 1600 03/22 0800 03/22 0000 Intake Total 305 10 Output Total Balance 305 10 Intake, IV 275 10 Intake, Oral 30 Patient 155 lb Weight Weight Reported by Patient Measurement Method Physical Exam General Appearance Alert, Oriented X3, Severe Distress Skin No Rashes, No Breakdown, No Significant Lesion, Left side Lt IJ catheter inplace, no erythema or tenderness Skin Temp/Moisture Exam: Warm/Dry Sepsis Skin Exam (color): Normal for Ethnicity HEENT Atraumatic, PERRLA, EOMI, Mucous Membr. moist/pink, Fundoscopy exam w/o papilledema Neck Supple, No JVD, No thryomegaly, +2 Carotid Pulse wo Bruit, No LAD Lymphatic Axillary nl, Cervical nl Cardiovascular Regular Rate, Normal S1, Normal S2, No Murmurs, Gallops, Rubs, tenderness to palpation on Left flank, lateral to left breast Lungs Clear to Auscultation, Normal Air Movement Abdomen Normal Bowel Sounds, Soft, No Tenderness, No Hepatospenomegaly, No Masses, Peritoneal dialysis catheter noted LLQ, no erythema or tenderness Neurological Normal Speech, Strength at 5/5 X4 Ext, Normal Tone, Sensation Intact, Cranial Nerves 3-12 NL, Reflexes 2+, no dysarthria Extremities No Clubbing, No Cyanosis, No Edema, Normal Pulses, No Tenderness/ Swelling Vascular Normal Pulses, Pulses Symmetrical Diagnostic Data EKG Results SR, rate 65, LVH w/LVH w/secondary repol, T inversion v1,v2,v6 (also present in last EKG) CXR Results MPRESSION: 1. Increasing pleural effusion on the left. This presumably results in some compression atelectasis of the left lower lobe. Pneumonia would be difficult to exclude in this setting. 2. Trace right pleural effusion. 3. Dialysis catheter in place. Other Results Renal US : IMPRESSION: 1. Both kidneys are small with cortical thinning, consistent with chronic medical renal disease. 2. There are small cysts in both kidneys. 3. No hydronephrosis or echogenic renal calculi are demonstrated. 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 Problem list #Hypertensive urgency: likely secondary to patient not taking her antihypertensives because of nausea, no evidence of endocrine damage noted #Left flank pain: Likely on musculoskeletal as there tenderness to palpation on the region however would rule out ACS given patient is high risk also EKG shows LVH with secondary repol, could also be secondary to increased left-sided pleural effusion. #Fever: Meets SIRS criteria given fever of 100.2 and heart rate of 99, source of infection if any is unknown at this point. With Has history of sepsis with infected catheter in past, received IV vancomycin and by mouth Cipro in the ED. #Left IJ thrombosis on Eliquis: Stable #History of gastritis: Stable #History of anxiety: Stable Plan * Admit to telemetry * Vitals per protocol * Will trend troponins and EKGs to rule out ACS * Blood cultures * Resume all PT antihypertensives; monitor blood pressures closely * Will check head CT to rule out any hemorrhage: If head CT negative okay to resume Eliquis. Of note, patient has not taken doses of Eliquis this morning and last night because of nausea. 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 Acute pain 2. HYPERTENSIVE URGENCY 3. ESRD (end stage renal disease) on dialysis Core Measures/Miscellaneous Acute Coronary Syndrome ACS Diagnosis: No Cerebrovascular Accident CVA/TIA Diagnosis: No Congestive Heart Failure CHF Diagnosis: No VTE (View Protocol) VTE Risk Factors: Obesity No Mech VTE prophylaxis d/t: No contraindications No VTE Pharm Prophylaxis d/t: No contraindications VTE Diagnosis: No VTE Type: NONE VTE Confirmed by (Test): NONE Sepsis (View Protocol) Severe Sepsis Present: No BC x2: Yes Lactic Acid x2: Yes IV ABX Broad Spectrum: Yes NS/LR Started: No (DIALYSIS PT, HYPERTENSIVE) Septic Shock Septic Shock Present: No Miscellaneous Documentation Attending Case Discussed With: CHRISTOPHER HI MD Primary Care Physician: CLARA ANGEL MD Patient sees these Specialists Nephrology Level of Patient Care: Telemetry CHRISTOPHER HI MD 03/22/17 1508: Attending MD Review Statement Attending Statement Attending MD Statement: examined this patient, discuss w/resident/PA/EMBLEM CUTTER, agreed w/resident/PA/EMBLEM CUTTER, reviewed EMR data (avail) Attending Assessment/Plan: This is a fairly complex 31-year-old female was recently here from March 03 to March 11. At that time she was treated for line sepsis and line thrombosis. She had an infected right IJ catheter that was taken out, and she was discharged on Ancef Hira/ Wednesday/ Wednesday for 4 weeks for MSSA bacteremia the duration of which is at least until April 04. She was also maintained on Eliquis for line thrombosis. She returns today with severe left-sided chest/breast wall pain, nausea and didn 't go for dialysis. In addition she has uncontrolled hypertension and a low- grade temp of 100.2 with a chest x-ray that shows a slightly larger left-sided pleural effusion. In the ER they were able to get only 1 set of blood cultures and they gave her Vanco IV and Cipro by mouth emperically in addition to antihypertensives to bring her blood pressure down. Our plan for her today is to get dialyzed today and get another set of blood cultures there with dialysis. For now I will hold off of any more Vanco Cipro, continue the Ancef that she gets Wednesday, Wednesday ,Wednesday and get IDs input regarding further antibiotic use. I think it's reasonable to image the chest with a CT chest to make sure that this effusion is free-flowing and we don't need to do a diagnostic tap. Will continue her antihypertensives and treat her pain with IV Dilaudid. Patient always requests IV Dilaudid when she is here and says nothing else works for her. I don't have any obvious etiology for the pain, as her initial troponin was negative we will trend further troponins and her lipase was negative as well. Given the uncontrolled hypertension and the Eliquis will keep a low threshold to image her head to make sure there is no intracranial bleed.
--- NOTE | 2017-03-22 12:11 | NUR ---
PT COMPLAINED OF 10/10 ABD PAIN, PER HOUSE STAFF PT MEDICATED WITH DILAUDID 1 MG IV
--- NOTE | 2017-03-22 13:04 | Admission Certification ---
Admission Certification Certification Statement - As attending physician, I certify that at the time of - admission, based on clinical presentation, severity of - symptoms, need for further diagnostic testing and - therapeutic interventions, and risk of adverse outcomes - without in-hospital treatment, in my clinical assessment, - this patient requires an acute hospital stay for a minimum - of two nights or longer. I have also considered psychsocial - factors such as support system, advanced age, financial - issues, cognitive issues, and failed out-patient treatments, - past re-admission history, safety of patient, and lack of - compliance as applicable. Specific rationale supporting this admission is: Acute uncontrolled hypertension and needs urgent dialysis.
--- NOTE | 2017-03-22 13:12 | NUR ---
SLEEPING AT PRESENT.
--- NOTE | 2017-03-22 14:04 | NUR ---
FAMILY AT BEDSIDE, MOANING FREQUENTLY, STATES PAIN IS WORSE WHEN SHE MOVES. (LUQ).
--- NOTE | 2017-03-22 14:24 | NUR ---
TO CT SCAN.
--- NOTE | 2017-03-22 14:32 | NUR ---
RETURNED FROM CT SCAN.
--- NOTE | 2017-03-22 14:46 | NUR ---
EKG DONE, TROPONIN DRAWN BY Josh ROBLES.
--- NOTE | 2017-03-22 14:58 | NUR ---
PT REQUESTING FOOD, DR. SINGH CALLED. ALSO NOTIFIED OF BP AND TEMP.
--- NOTE | 2017-03-22 15:03 | CT SCAN REPORT ---
EXAMINATION: CT HEAD WITHOUT CONTRAST CLINICAL INFORMATION: Hyperdense. Nausea. COMPARISON: CT head dated 03/03/2017 TECHNIQUE: Contiguous axial imaging was performed from the skull base to vertex without intravenous administration of contrast. DLP: 614.22 mGy-cm FINDINGS: There is no evidence of acute intracranial hemorrhage or territorial infarction. No abnormal mass effect or midline shift is seen. Stable low-attenuation right external capsule and right basal ganglia compatible with chronic changes likely representing sequela of old stroke. Old encephalomalacia noted again in the left occipital lobe. Stable ex vacuo dilatation right frontal horn. No acute loss of locke-white differentiation appreciated. Periventricular white matter low-attenuation noted again. Visualized osseous structures are intact. Deviation of the nasal septum with convexity to the right. The mastoid air cells and visualized portions of the paranasal sinuses are well aerated. IMPRESSION: No acute intracranial pathology. Stable chronic changes.
--- NOTE | 2017-03-22 15:17 | NUR ---
Scotty CHUA HERE TO EVALUATE.
--- NOTE | 2017-03-22 15:22 | NUR ---
REPORT RECEIVED. CARE OF PT ASSUMED
--- NOTE | 2017-03-22 15:24 | Cons- Nephrology ---
General Information and HPI Consulting Request Date of Consult: 03/22/17 Requested By: CHRISTOPHER HI MD Reason for Consult: Evaluation of management of end-stage renal disease Source of Information: patient, old records Exam Limitations: limited by her complaints of pain History of Present Illness: This is one of many hospital admissions for this patient who has a history of end-stage renal disease and is been on dialysis now for a number of years. More recently, she was on peritoneal dialysis until which time she needed to change to hemodialysis. She currently is dialyzed in [place]. Her typical dialysis todays is Wednesday and Wednesday. She is due for dialysis today. She now presents with severe pain. She describes it as being underneath her left breast extending in a horseshoe shape around underneath the left axilla and up the back. She says she has fevers with this. She said she had a fever before she came to the hospital. The patient is a history of noncompliance both with dialysis and her blood pressure medicines. Not surprisingly, she was found to have an elevated blood pressure upon presentation. She has been on April 2012. She has been hospitalized 38 or 39 times since starting dialysis in April 2012. She has a history of having a stroke as well. Allergies/Medications Allergies: Coded Allergies: Iodinated Contrast- Oral and IV Dye (Iodinated Contrast Media - Oral and) ( Intermediate, HIVES AND SWELLING 12/21/16) morphine (Intermediate, HIVES 12/21/16) Penicillins (RASH 12/21/16) hydroxyzine (PER PT UNKNOWN 12/21/16) lisinopril (ANGIODEMA 12/21/16) LEIDA Inhibitors (ANGIODEMA 12/21/16) Home Med List: Alprazolam (Xanax) 0.5 MG TABLET 1 TAB PO DAILY NEEDED PRN ANXIETY ( Reported) Apixaban (Eliquis) 5 MG TABLET 1 TAB PO BID BLOOD THINNER (Reported) Calcium (Elemental-Fr Calcarb) (Calcium Carbonate) 500 MG/5ML ORAL.SUSP 20 ML PO BID SUPPLEMENT (Reported) Cefazolin (Cefazolin 1 Gm-D5w Bag) 1 GRAM/50 ML PIGGYBACK 1,500 MG IV MoWeFr bacteremia Clonidine 0.1 MG/24 HOUR PATCH.TDWK 3 PAT TOP QW hypertension . Epoetin Carlos (Epogen) 10,000 UNIT/ML VIAL 10,000 UNIT SC Q2W ANEMIA (Reported ) Hydralazine HCl 100 MG TABLET 1 TAB PO TID HTN (Reported) Hydromorphone HCl (Dilaudid) 2 MG TABLET 1 TAB PO Q6P PRN pain 7-10 . Labetalol HCl 100 MG TABLET 2 TAB PO BID HYPERTENSION . Losartan (Cozaar) 100 MG TABLET 1 TAB PO DAILY HEART (Reported) Mupirocin 2 % OINT...G. 1 UDAY TOP AD CATH (Reported) apply to affected area(s) Nifedipine (Procardia XL) 30 MG TAB.ER.24 2 TAB PO DAILY high blood pressure . Omeprazole 20 MG CAPSULE.DR 1 TAB PO BID ESOPHAGITIS Ondansetron HCl (Zofran) 4 MG TABLET 1 TAB PO Q6-8P PRN NAUSEA (Reported) Current Medications: Current Medications Sig/Bryan Start time Last Medication Dose Route Stop Time Status Admin Acetaminophen 650 MG Q4P PRN 03/22 1215 AC PO Alprazolam 0 .STK-MED ONE 03/22 1405 DC PO Alprazolam 0.5 MG DAILY NEEDED PRN 03/22 1245 AC 03/22 PO 03/29 1244 1403 Ciprofloxacin 0 .STK-MED ONE 03/22 1007 DC PO Ciprofloxacin 500 MG ONCE ONE 03/22 1000 DC 03/22 PO 03/22 1001 1016 Clonidine 3 PAT Q168 03/22 1400 AC TOP Diphenhydramine HCl 0 .STK-MED ONE 03/22 0804 DC .ROUTE Diphenhydramine HCl 25 MG ONCE ONE 03/22 0800 DC 03/22 IV 03/22 0801 0803 Hydralazine HCl 100 MG TID 03/22 1600 AC PO Hydralazine HCl 100 MG ONCE ONE 03/22 1030 DC 03/22 PO 03/22 1031 1045 Hydromorphone HCl 0.2 MG Q8P PRN 03/22 1345 AC IV Hydromorphone HCl 1 MG ONCE ONE 03/22 1215 DC 03/22 IV 03/22 1216 1211 Hydromorphone HCl 0 .STK-MED ONE 03/22 1214 DC .ROUTE Hydromorphone HCl 0.5 MG ONCE ONE 03/22 0915 DC 03/22 IV 03/22 0916 0907 Hydromorphone HCl 0 .STK-MED ONE 03/22 0910 DC .ROUTE Hydromorphone HCl 0 .STK-MED ONE 03/22 0803 DC .ROUTE Hydromorphone HCl 0.5 MG ONCE ONE 03/22 0800 DC 03/22 IV 03/22 0801 0803 Labetalol HCl 200 MG BID 03/22 2200 AC PO Labetalol HCl 200 MG ONCE ONE 03/22 1030 DC 03/22 PO 03/22 1031 1045 Losartan Potassium 100 MG DAILY 03/23 1000 AC PO Nifedipine 60 MG DAILY 03/23 1000 AC PO Nitroglycerin 0 .STK-MED ONE 03/22 1046 DC TOP Nitroglycerin 0.5 GM ONCE ONE 03/22 1030 DC 03/22 TOP 03/22 1031 1045 Nitroglycerin 0 .STK-MED ONE 03/22 0811 DC TOP Nitroglycerin 1 GM ONCE ONE 03/22 0800 DC 03/22 TOP 03/22 0801 0806 Omeprazole 0 .STK-MED ONE 03/22 1316 DC PO Omeprazole 20 MG BID 03/22 1245 AC 03/22 PO 1403 Vancomycin HCl 0 .STK-MED ONE 03/22 1007 DC .ROUTE Vancomycin HCl 1,000 MG ONCE ONE 03/22 1000 DC 03/22 Sodium Chloride 250 ML IV 03/22 1059 1016 Review of Systems Review of Systems: Constitutional: Reports: chills, fever, malaise, weakness. Denies: diaphoresis, unexplained weight loss. EENTM: Denies: double vision, visual changes, ear discharge, ear pain, nasal congestion , epistaxis. Cardiovascular: Denies: chest pain, orthopena, palpitations, peripheral edema. Respiratory: Reports: cough, short of breath, wheezing. She just can't take a deep breath with the pain. GI: Denies: abdominal pain, bloating, constipation. She does complain of pain really in the left chest Genitourinary: Denies: discharge, hematuria. Musculoskeletal: Reports: back pain. Skin: Denies: change in hair/nails, dryness, erythema. Neurological/Psychological: Reports: anxiety. Hematologic/Endocrine: Reports: no symptoms. 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 child, parent Services at Home: None Primary Language: Sinhala ETOH Use: denies use Living Will? yes Functional Ability ADLs Independent: dressing, eating, toileting, bathing. Ambulation: independent IADLs Independent: shopping, housework, finances, food prep, telephone, transportation , medication admin. Exam & Diagnostic Data Vital Signs and I&O Vital Signs Date Time Temp Pulse Resp B/P B/P Pulse O2 O2 Flow FiO2 Mean Ox Delivery Rate 03/22 1234 84 18 170/90 99 Room Air 03/22 1133 100.2 99 18 220/118 98 03/22 1045 84 220/118 03/22 1045 84 220/118 03/22 1012 99.4 84 18 220/118 99 Room Air 03/22 0858 84 18 220/110 99 Room Air 03/22 0722 100.1 82 20 230/120 93 Room Air Intake & Output 03/22 1600 03/22 0400 03/21 1600 03/21 0400 03/20 1600 03/20 0400 Intake Total 315 Output Total Balance 315 Intake, IV 285 Intake, Oral 30 Patient 155 lb Weight Weight Reported by Patient Measurement Method Physical Exam General Appearance: well developed/nourished, no apparent distress, alert, awake , in pain Head: atraumatic, normal appearance Eyes: Bilateral: PERRL, EOMI, pale conjunctivae. Ears, Nose, Throat: hearing grossly normal Neck: supple Respiratory: normal breath sounds, chest non-tender, no respiratory distress Cardiovascular: regular rate/rhythm Peripheral Pulses: 2+ tibialis posterior (R), 2+ tibialis posterior (L), 2+ dorsalis pedis (R), 2+ dorsalis pedis (L) Gastrointestinal: normal bowel sounds, soft, non-tender Back: normal inspection, normal range of motion Extremities: normal inspection, normal capillary refill Neurologic/Psych: no motor/sensory deficits, no sensory deficits Cranial Nerves: normal hearing, normal speech, PERRL Skin: intact, normal color, warm/dry Results Pertinent Lab Results: Laboratory Tests 03/22 03/22 03/22 1440 1025 0727 Chemistry Sodium (137 - 145 mmol/L) 133 L Potassium (3.5 - 5.1 mmol/L) 4.3 Chloride (98 - 107 mmol/L) 97 L Carbon Dioxide (22 - 30 mmol/L) 21 L Anion Gap (5 - 16) 15 BUN (7 - 17 mg/dL) 29 H Creatinine (0.5 - 1.0 mg/dL) 8.9 *H Estimated GFR (>60 ml/min) 5 L BUN/Creatinine Ratio (7 - 25 %) 3.3 L Glucose (65 - 99 mg/dL) 84 Lactic Acid (0.7 - 2.1 mmol/L) Cancelled 0.6 L Calcium (8.4 - 10.2 mg/dL) 8.9 Total Bilirubin (0.2 - 1.3 mg/dL) 0.5 AST (14 - 36 U/L) 20 ALT (9 - 52 U/L) 21 Alkaline Phosphatase (<127 U/L) 79 Troponin I (< 0.11 ng/ml) Pending 0.04 Total Protein (6.3 - 8.2 g/dL) 6.9 Albumin (3.5 - 5.0 g/dL) 3.9 Globulin (1.9 - 4.2 gm/dL) 3.0 Albumin/Globulin Ratio (1.1 - 2.2 %) 1.3 Lipase (23 - 300 U/L) 37 Hematology CBC w Diff NO MAN DIFF REQ WBC (4.8 - 10.8 /CUMM) 6.2 RBC (4.20 - 5.40 /CUMM) 2.84 L Hgb (12.0 - 16.0 G/DL) 8.2 L Hct (37 - 47 %) 25.1 L MCV (81.0 - 99.0 FL) 88.3 MCH (27.0 - 31.0 PG) 28.9 RDW (11.5 - 14.5 %) 16.6 H Plt Count (130 - 400 /CUMM) 365 MPV (7.4 - 10.4 FL) 8.2 Gran % (42.2 - 75.2 %) 83.8 H Lymphocytes % (20.5 - 51.1 %) 9.9 L Monocytes % (1.7 - 9.3 %) 3.8 Eosinophils % (0 - 5 %) 2.4 Basophils % (0.0 - 2.0 %) 0.1 Absolute Granulocytes (1.4 - 6.5 /CUMM) 5.2 Absolute Lymphocytes (1.2 - 3.4 /CUMM) 0.6 L Absolute Monocytes (0.10 - 0.60 /CUMM) 0.2 Absolute Eosinophils (0.0 - 0.7 /CUMM) 0.1 Absolute Basophils (0.0 - 0.2 /CUMM) 0 PUBS MCHC (33.0 - 37.0 G/DL) 32.8 L Assessment/Plan Assessment/Recommendations Assessment: 1. End-stage renal disease. We'll offer dialysis this afternoon. I obtain the information from [facility] she is a 4 hour treatment. 2. Hypertension. Would suggest reinstituting her outpatient medicines. According to the outpatient record she is best to be on hydralazine, labetalol and losartan. She is also on a clonidine patch. 3. Anemia continue with Epogen 4. Next hemodialysis will be planned for Recommendations: 1. Hemodialysis today 2. Strict I's and O's daily weights. 3. Reinstitute at-home meds 4. Patient should be on a 2 g sodium 2 g potassium 1000 mL per day fluid restriction.
--- NOTE | 2017-03-22 15:35 | NUR ---
PT ASSIGNED TO ROOM 188 BED 1
--- NOTE | 2017-03-22 15:51 | NUR ---
PT TO CAT SCAN, THEN TO HEMODIALYSIS ERP PROGRAMMER TO FLOOR. REPORT TO DIANA BRAGG ON [address]. BP MEDS HELD RT PATIENT'S STATED DROP IN BP WITH HEMODIALYSIS TX AND FLUID REMOVAL.
--- NOTE | 2017-03-22 16:24 | CT SCAN REPORT ---
EXAMINATION: CT CHEST WITHOUT CONTRAST CLINICAL INFORMATION: Increasing left-sided pleural effusion, left flank pain. COMPARISON: 11/10/2016. TECHNIQUE: Multidetector volumetric CT imaging of the chest was done. Axial MIP volume rendering provided. Sagittal and coronal reformatted images were obtained. DLP: 165 mGy-cm FINDINGS: A small left-sided pleural effusion appears to have slightly decreased in volume since the previous examination. There is mild associated subsegmental atelectasis in the left lower lobe most notably posteriorly which appears largely unchanged without findings to suggest an infiltrate and pneumonia. Discoid atelectasis and/or scarring in the inferior aspect of the right upper lobe, right middle lobe, and lingula appear largely unchanged. No suspicious pulmonary nodules are identified. The heart remains enlarged with atherosclerotic coronary disease again noted. There is no evidence of lymphadenopathy. A left-sided IJ dual-lumen peritoneal dialysis catheter is in place with its tip at the SVC right atrial junction. Breast tissue appears unchanged. No pathologically enlarged axillary lymph nodes are seen. No aggressive appearing osseous lesions are seen. IMPRESSION: 1. Small left-sided pleural effusion appears slightly smaller than the previous exam. No focal infiltrate. 2. Fairly stable appearing atelectasis and/or scarring. 3. Heart remains enlarged, hemodialysis catheter from a left-sided approach appears in satisfactory position.
--- NOTE | 2017-03-22 17:28 | Cons- Infect Disease ---
General Information and HPI Consulting Request Date of Consult: 03/22/17 Requested By: SUSSY COTA,CHRISTOPHER Benson Reason for Consult: Left chest pain/low-grade fevers Source of Information: patient, old records History of Present Illness: This is a 31-year-old woman with a history of hypertension, status post right basal ganglia lacunar infarcts, maintained on Eliquis, psoriasis and end-stage renal disease, presumed secondary to hypertension nephrosclerosis, maintained on peritoneal dialysis,via a Tenckhoff catheter, which remains in place, until 6 weeks prior to admission, at which time she was hospitalized with fluid overload and was begun on hemodialysis via a left IJ Glenroy catheter, which was removed at [facility] because of a left IJ thrombus, requiring placement of a new right IJ Glenroy catheter, hospitalized at [place] 3 weeks prior to admission with MSSA sepsis attributed to the right IJ catheter, which was removed with placement of a new left IJ catheter 2 days later, with evidence of a right IJ thrombus and with a AARON negative for any vegetations, discharged on Cefazolin 1.5 g IV to be given after each dialysis to complete a four-week course of antibiotics, with her dialysis 1 week prior to admission complicated by a clot in the catheter, which was removed, admitted today after presenting to the emergency room with a one-day history of severe left chest pain, limiting her ability to take a deep breath, associated with sweats and a cold feeling but with no documented fevers. On admission she was febrile to 100.2, with blood pressure 230/120. Laboratory data revealed a white blood cell count of 6000, BUN/creatinine 29 and 8.9, with normal liver enzymes. Chest x-ray revealed an increasing left pleural effusion and a trace right pleural effusion. CT of the chest revealed a small left pleural effusion, smaller than the previous study, with no focal infiltrate. Doppler of the right upper extremity was negative for DVT. Renal ultrasound was negative for hydronephrosis. CT of the head was negative for any acute process. She was given Vancomycin and Ciprofloxacin in the emergency room and is currently undergoing dialysis. At present she complains of severe left chest pain, localized under her breast, with radiation to her left back. Allergies/Medications Allergies: Coded Allergies: Iodinated Contrast- Oral and IV Dye (Iodinated Contrast Media - Oral and) ( Intermediate, HIVES AND SWELLING 12/21/16) morphine (Intermediate, HIVES 12/21/16) Penicillins (RASH 12/21/16) hydroxyzine (PER PT UNKNOWN 12/21/16) lisinopril (ANGIODEMA 12/21/16) LEIDA Inhibitors (ANGIODEMA 12/21/16) Home Med List: Alprazolam (Xanax) 0.5 MG TABLET 1 TAB PO DAILY NEEDED PRN ANXIETY ( Reported) Apixaban (Eliquis) 5 MG TABLET 1 TAB PO BID BLOOD THINNER (Reported) Calcium (Elemental-Fr Calcarb) (Calcium Carbonate) 500 MG/5ML ORAL.SUSP 20 ML PO BID SUPPLEMENT (Reported) Cefazolin (Cefazolin 1 Gm-D5w Bag) 1 GRAM/50 ML PIGGYBACK 1,500 MG IV MoWeFr bacteremia Clonidine 0.1 MG/24 HOUR PATCH.TDWK 3 PAT TOP QW hypertension . Epoetin Carlos (Epogen) 10,000 UNIT/ML VIAL 10,000 UNIT SC Q2W ANEMIA (Reported ) Hydralazine HCl 100 MG TABLET 1 TAB PO TID HTN (Reported) Hydromorphone HCl (Dilaudid) 2 MG TABLET 1 TAB PO Q6P PRN pain 7-10 . Labetalol HCl 100 MG TABLET 2 TAB PO BID HYPERTENSION . Losartan (Cozaar) 100 MG TABLET 1 TAB PO DAILY HEART (Reported) Mupirocin 2 % OINT...G. 1 UDAY TOP AD CATH (Reported) apply to affected area(s) Nifedipine (Procardia XL) 30 MG TAB.ER.24 2 TAB PO DAILY high blood pressure . 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) MRSA peritonitis drug fever attributed to vancomycin History of MRSA: Yes History of VRE: No History of CDIFF: No Surgical History Surgical History: , hernia repair-inguinal, parathyroidectomy Family History Relations & Conditions If Any: FATHER FH: CAD (coronary artery disease) FH: HTN (hypertension) FH: stroke grandmother FH: colon cancer SISTER ASD (atrial septal defect) MOTHER FH: diabetes mellitus FH: HTN (hypertension) Psychosocial History Who Do You Live With? child, parent Services at Home: None Primary Language: Bahraini ETOH Use: denies use Living Will? yes Functional Ability ADLs Independent: dressing, eating, toileting, bathing. Ambulation: independent IADLs Independent: shopping, housework, finances, food prep, telephone, transportation , medication admin. Review of Systems Review of Systems Respiratory: Denies: cough. GI: Reports: nausea. Denies: abdominal pain, diarrhea, vomiting. All Other Systems: Reviewed and Negative Exam & Diagnostic Data Last 24 Hrs of Vital Signs/I&O Vital Signs Date Time Temp Pulse Resp B/P B/P Pulse O2 O2 Flow FiO2 Mean Ox Delivery Rate 03/22 1608 100.0 85 22 196/103 03/22 1608 100.0 85 22 196/103 03/22 1234 84 18 170/90 99 Room Air 03/22 1133 100.2 99 18 220/118 98 03/22 1045 84 220/118 03/22 1045 84 220/118 03/22 1012 99.4 84 18 220/118 99 Room Air 03/22 0858 84 18 220/110 99 Room Air 03/22 0722 100.1 82 20 230/120 93 Room Air Intake & Output 03/22 1600 03/22 0800 03/22 0000 Intake Total 305 10 Output Total Balance 305 10 Intake, IV 275 10 Intake, Oral 30 Patient 155 lb Weight Weight Reported by Patient Measurement Method Physical Exam Other Physical Findings: She is awake and alert in mild distress secondary to her pain. MAXIMUM TEMPERATURE 100.2. Skin reveals no rash. HEENT exam is negative. Neck is supple with no adenopathy; left IJ Glenroy catheter site with no inflammation. Lungs are clear. Heart regular rhythm with a 1/6 systolic ejection murmur. Abdomen is soft, nontender with positive bowel sounds; Tenckhoff catheter in place with no inflammation at the site. Back no CVA tenderness. Extremities no cyanosis, clubbing or edema. Neuro is without focality. Last 24 Hours of Lab Results: Laboratory Tests 03/22 03/22 03/22 1440 1025 0727 Chemistry Sodium (137 - 145 mmol/L) 133 L Potassium (3.5 - 5.1 mmol/L) 4.3 Chloride (98 - 107 mmol/L) 97 L Carbon Dioxide (22 - 30 mmol/L) 21 L Anion Gap (5 - 16) 15 BUN (7 - 17 mg/dL) 29 H Creatinine (0.5 - 1.0 mg/dL) 8.9 *H Estimated GFR (>60 ml/min) 5 L BUN/Creatinine Ratio (7 - 25 %) 3.3 L Glucose (65 - 99 mg/dL) 84 Lactic Acid (0.7 - 2.1 mmol/L) Cancelled 0.6 L Calcium (8.4 - 10.2 mg/dL) 8.9 Total Bilirubin (0.2 - 1.3 mg/dL) 0.5 AST (14 - 36 U/L) 20 ALT (9 - 52 U/L) 21 Alkaline Phosphatase (<127 U/L) 79 Troponin I (< 0.11 ng/ml) 0.05 0.04 Total Protein (6.3 - 8.2 g/dL) 6.9 Albumin (3.5 - 5.0 g/dL) 3.9 Globulin (1.9 - 4.2 gm/dL) 3.0 Albumin/Globulin Ratio (1.1 - 2.2 %) 1.3 Lipase (23 - 300 U/L) 37 Hematology CBC w Diff NO MAN DIFF REQ WBC (4.8 - 10.8 /CUMM) 6.2 RBC (4.20 - 5.40 /CUMM) 2.84 L Hgb (12.0 - 16.0 G/DL) 8.2 L Hct (37 - 47 %) 25.1 L MCV (81.0 - 99.0 FL) 88.3 MCH (27.0 - 31.0 PG) 28.9 RDW (11.5 - 14.5 %) 16.6 H Plt Count (130 - 400 /CUMM) 365 MPV (7.4 - 10.4 FL) 8.2 Gran % (42.2 - 75.2 %) 83.8 H Lymphocytes % (20.5 - 51.1 %) 9.9 L Monocytes % (1.7 - 9.3 %) 3.8 Eosinophils % (0 - 5 %) 2.4 Basophils % (0.0 - 2.0 %) 0.1 Absolute Granulocytes (1.4 - 6.5 /CUMM) 5.2 Absolute Lymphocytes (1.2 - 3.4 /CUMM) 0.6 L Absolute Monocytes (0.10 - 0.60 /CUMM) 0.2 Absolute Eosinophils (0.0 - 0.7 /CUMM) 0.1 Absolute Basophils (0.0 - 0.2 /CUMM) 0 PUBS MCHC (33.0 - 37.0 G/DL) 32.8 L Last 24 Hours of Ashwin Results: Blood cultures 2 pending Diagnostic Data Recent Imaging Findings: Chest x-ray, personally reviewed, reveals a left pleural effusion and a trace right pleural effusion. CT of the chest reveals a small left pleural effusion, smaller than the previous study, with no focal infiltrate. Doppler of the right upper extremity is negative for a DVT. Assessment/Plan Assessment/Plan Impression: This is a 31-year-old woman with diabetes, hypertension, status post right basal ganglia infarcts, maintained on Eliquis, with end-stage renal disease, on peritoneal dialysis in the past and recently begun on hemodialysis, which has been complicated by catheter related issues including thrombi and infection, recently hospitalized with MSSA sepsis requiring removal of the right IJ, with evidence of a thrombus in the right IJ as well, discharged on Cefazolin to be given after each dialysis and continued for 4 weeks duration, with her dialysis 1 week prior to admission complicated by a clot in the catheter, admitted today with the acute onset of left chest pain, found to have a low-grade fever with a normal white blood cell count and a CT of the chest only revealing a small left pleural effusion. The possibility of a pulmonary embolism must be considered, particularly with the recent report of a clot in the catheter and, despite the fact that she is on Eliquis, this should be ruled out. Other possible etiologies of her chest pain include an empyema, though the pleural effusion, which was reviewed with IR, is felt to be quite small, a discitis or osteomyelitis of the thoracic spine, though there is no evidence for this on the CT the chest, or endocarditis, though her recent AARON was negative. A new infection related to her left IJ Glenroy catheter is also possible, though her white blood cell count remains normal. She has no evidence for any other source of infection at this time. Suggestion: 1. Would pursue a CTA of the chest 2. Follow-up recent cultures 3. Further evaluation, including left thoracentesis and MRI of the thoracic spine, based on above 4. Continue Cefazolin 1.5 g IV after each dialysis pending above Consult Acknowledgment - Thank you for your consult request.
--- NOTE | 2017-03-22 19:29 | Event Note ---
Event Note Event Note: Spoke with regarding patient getting a CTA, as per nephrology she can get CTA chest.
--- NOTE | 2017-03-22 20:19 | Event Note ---
Event Note Event Note: Patient is supposed to get CTA in the evening because of high suspicion of PE but patient has a documented allergy to contrast/iodine. Also has end-stage renal disease on dialysis today creatinine is 8.9 , had dialysis in the evening today There was a concern of worsening creatinine after contrast I discussed the case with Dr. Saleh, who also recommended to get CTA in view of high suspicion of PE(receent left IJ thrombosis on Eliquis). We discussed with Dr. Joaquin over the phone, and he mentioned to go ahead with CTA - if really necessary.If patient requires, he will plan for urgent dialysis in the morning. We'll touch base with a CAT scan and the radiologist regarding premedication with IV Solu-Cortef and IV Benadryl before the CTA.
--- NOTE | 2017-03-22 21:12 | Event Note ---
Event Note Event Note: Arrangements were made for the patient to get CTA chest (with premedication protocol). Informed the patient of the plan, and she was reluctant to get CT done with contrast. Explained to her that she would be premedicated hours before the contrast is injected, but she was reluctant to have the test done. As per the patient, she had severe rash for 3 months despite being given Solu- Medrol in the past. Explained to her in detail about the risks involved in not getting the test done, and she understands the risks. The nursing staff was present at the time. VQ scan was ordered, which unfortunately cannot be done until the a.m. Also spoke to the CAT scan office automation technician, who confirmed that VQ scan could be ordered for a.m. only. Informed the attending.
[2017-03-23 00:09] VITALS: BP 126/42
[2017-03-23 01:41] VITALS: BP 180/90
--- NOTE | 2017-03-23 10:16 | PN- Nephrology ---
Assessment/Plan Assessment: 1. End-stage renal disease. No hemodialysis today. The next treatment will be tomorrow. 2. Hypertension. Of note, the outpatient dialysis record mentions amiodarone at 10 mg a day. Suspect that that is actually amlodipine 10 mg each day. 3. Anemia continue with Epogen 4. Next hemodialysis will be planned for tomorrow. 5. Contrast allergy. Please note, she had a severe rash that persisted for months while on PD after having received IV contrast. This was in spite of her receiving the prep for allergic patient's. She ought not to see contrast again ever Suggestion: 1. Next hemodialysis will be tomorrow 2. Would not order laboratory studies after dialysis. These are pointless. The potassium sent after dialysis will deceive those ordering potassium into believing that the patient needs potassium. At which time, those providers so fooled will replace that potassium all liter fine the next day that the patient is hyperkalemic. The explanation for this is that it takes 6 hours for a re- equilibration from the intravascular space. 3. In fact, would limit blood draws to dialysis days via the dialysis nurse only. This will spare the patient unnecessary phlebotomy. 4. Also of note, reading through the dialysis record, the patient's labetalol was 3 times a day not twice a day. That dose may need to be adjusted. In terms of ongoing therapy, using clonidine in this patient, whose compliance has been questionable over the years, runs the risk of rebound hypertension. Subjective Subjective: Patient still with pain. She reminded me that her allergy to IV contrast was not subtle. She had a rash that persisted for a full 3 months. She refused the administration of IV contrast and quite frankly, she has a point. Objective Vital Signs and I&Os Vital Signs Date Time Temp Pulse Resp B/P B/P Pulse O2 O2 Flow FiO2 Mean Ox Delivery Rate 03/23 0959 99.9 03/23 0952 74 180/90 03/23 0951 74 18003/23 0951 74 18003/23 0951 74 18090 03/23 0657 99.0 03/23 0141 98.4 74 16 180/90 94 Room Air 03/23 0130 74 180/90 03/23 0030 98.2 03/22 2201 Room Air 03/223 102.2 03/22 2117 87 208/82 06/26 1900 80 225/122 03/22 1608 100.0 85 22 196/103 03/22 1608 100.0 85 22 196/103 03/22 1234 84 18 170/90 99 Room Air 03/22 1133 100.2 99 18 220/118 98 03/22 1045 84 220/118 03/22 1045 84 220/118 Intake & Output 03/23 1600 03/23 0400 03/22 1600 03/22 0400 03/21 0400 Intake Total 100 410 315 Output Total 0 Balance 100 410 315 Intake, IV 110 285 Intake, Oral 100 300 30 Number 0 Bowel Movements Output, Urine 0 Patient 161 lb 155 lb Weight Weight Reported by Patient Reported by Patient Measurement Method Physical Exam: General Appearance: well developed/nourished, no apparent distress, alert, still with pain when she moves Head: atraumatic, normal appearance Eyes: Bilateral: PERRL, EOMI, pale conjunctivae. Ears, Nose, Throat: hearing grossly normal Neck: supple, no JVD Respiratory: normal breath sounds, chest non-tender, no respiratory distress Cardiovascular: regular rate/rhythm Gastrointestinal: normal bowel sounds, soft, non-tender Back: normal inspection, normal range of motion Extremities: normal inspection, normal capillary refill Neurologic/Psych: no motor/sensory deficits, no gross neurologic deficits Cranial Nerves: normal hearing, normal speech, PERRL Skin: intact, normal color, warm/dry Current Medications: Current Medications Sig/Bryan Start time Last Medication Dose Route Stop Time Status Admin Acetaminophen 650 MG Q4P PRN 03/22 1215 AC 03/23 PO 0959 Alprazolam 0 .STK-MED ONE 03/22 1405 DC PO Alprazolam 0.5 MG DAILY NEEDED PRN 03/22 1245 AC 03/22 PO 03/29 1244 1403 Apixaban 5 MG BID 03/22 2200 AC 03/23 PO 0951 Cefazolin Sodium 1,500 MG MoWeFr@03/22 AC 03/22 Sodium Chloride 100 ML IV 2030 Cefazolin Sodium 1,500 MG .[MWF] 03/22 1600 CAN IV Clonidine 3 PAT Q168 03/22 1400 AC TOP Epoetin Carlos 6,000 UNIT ONCE ONE 03/22 1600 DC IV 03/22 1601 Epoetin Carols 6,000 UNIT Wednesday .. 03/22 1600 AC IV Hydralazine HCl 100 MG TID 03/22 1600 AC 03/23 PO 0951 Hydralazine HCl 100 MG ONCE ONE 03/22 1030 DC 03/22 PO 03/22 1031 1045 Hydromorphone HCl 1 MG Q6-PRN PRN 03/23 1000 AC IV Hydromorphone HCl 0.6 MG Q4-6 PRN PRN 03/22 2130 DC 03/23 IV 0950 Hydromorphone HCl 0.6 MG Q6-PRN PRN 03/22 1630 DC 03/22 IV 1650 Hydromorphone HCl 0.2 MG Q8P PRN 03/22 1345 DC IV Hydromorphone HCl 1 MG ONCE ONE 03/22 1215 DC 03/22 IV 03/22 1216 1211 Hydromorphone HCl 0 .STK-MED ONE 03/22 1214 DC .ROUTE Labetalol HCl 200 MG BID 03/22 2200 AC 03/23 PO 0951 Labetalol HCl 200 MG ONCE ONE 03/22 1030 DC 03/22 PO 03/22 1031 1045 Losartan Potassium 100 MG DAILY 03/23 1000 AC 03/23 PO 0951 Nifedipine 60 MG DAILY 03/23 1000 AC 03/23 PO 0952 Nitroglycerin 0 .STK-MED ONE 03/22 1046 [facility] Nitroglycerin 0.5 GM ONCE ONE 03/22 1030 [place] 03/22 TOP 03/22 1031 1045 Omeprazole 0 .STK-MED ONE 03/22 1316 DC PO Omeprazole 20 MG BID 03/22 1245 AC 03/23 PO 0951 Paricalcitol 8 MCG ONCE ONE 03/22 1600 DC IV 03/22 1601 Paricalcitol 8 MCG Wednesday .. 03/22 1600 AC IV Vancomycin HCl 1,000 MG ONCE ONE 03/22 1000 DC 03/22 Sodium Chloride 250 ML IV 03/22 1059 1016 Results Pertinent Lab Results: Laboratory Tests 03/22 1856 1600 1440 Chemistry Sodium (137 - 145 mmol/L) 137 Cancelled 136 L Potassium (3.5 - 5.1 mmol/L) 3.1 L Cancelled 4.2 Chloride (98 - 107 mmol/L) 97 L Cancelled 95 L Carbon Dioxide (22 - 30 mmol/L) 28 Cancelled 21 L Anion Gap (5 - 16) 12 Cancelled 21 H BUN (7 - 17 mg/dL) 8 Cancelled 32 H Creatinine (0.5 - 1.0 mg/dL) 2.9 H Cancelled 9.6 *H Estimated GFR (>60 ml/min) 19 L 5 L BUN/Creatinine Ratio (7 - 25 %) 2.8 L Cancelled 3.3 L Troponin I (< 0.11 ng/ml) 0.05 0.05 03/22 03/22 03/22 1201 1025 0727 Chemistry Sodium (137 - 145 mmol/L) 133 L Potassium (3.5 - 5.1 mmol/L) 4.3 Chloride (98 - 107 mmol/L) 97 L Carbon Dioxide (22 - 30 mmol/L) 21 L Anion Gap (5 - 16) 15 BUN (7 - 17 mg/dL) 29 H Creatinine (0.5 - 1.0 mg/dL) 8.9 *H Estimated GFR (>60 ml/min) 5 L BUN/Creatinine Ratio (7 - 25 %) 3.3 L Glucose (65 - 99 mg/dL) 84 Lactic Acid (0.7 - 2.1 mmol/L) Cancelled 0.6 L Calcium (8.4 - 10.2 mg/dL) 8.9 Total Bilirubin (0.2 - 1.3 mg/dL) 0.5 AST (14 - 36 U/L) 20 ALT (9 - 52 U/L) 21 Alkaline Phosphatase (<127 U/L) 79 Troponin I (< 0.11 ng/ml) 0.04 Total Protein (6.3 - 8.2 g/dL) 6.9 Albumin (3.5 - 5.0 g/dL) 3.9 Globulin (1.9 - 4.2 gm/dL) 3.0 Albumin/Globulin Ratio (1.1 - 2.2 %) 1.3 Lipase (23 - 300 U/L) 37 Hematology CBC w Diff NO MAN DIFF REQ WBC (4.8 - 10.8 /CUMM) 6.2 RBC (4.20 - 5.40 /CUMM) 2.84 L Hgb (12.0 - 16.0 G/DL) 8.2 L Hct (37 - 47 %) 25.1 L MCV (81.0 - 99.0 FL) 88.3 MCH (27.0 - 31.0 PG) 28.9 RDW (11.5 - 14.5 %) 16.6 H Plt Count (130 - 400 /CUMM) 365 MPV (7.4 - 10.4 FL) 8.2 Gran % (42.2 - 75.2 %) 83.8 H Lymphocytes % (20.5 - 51.1 %) 9.9 L Monocytes % (1.7 - 9.3 %) 3.8 Eosinophils % (0 - 5 %) 2.4 Basophils % (0.0 - 2.0 %) 0.1 Absolute Granulocytes (1.4 - 6.5 /CUMM) 5.2 Absolute Lymphocytes (1.2 - 3.4 /CUMM) 0.6 L Absolute Monocytes (0.10 - 0.60 /CUMM) 0.2 Absolute Eosinophils (0.0 - 0.7 /CUMM) 0.1 Absolute Basophils (0.0 - 0.2 /CUMM) 0 PUBS MCHC (33.0 - 37.0 G/DL) 32.8 L Urines Urine Color Cancelled Urine Clarity Cancelled Urine pH Cancelled Ur Specific [place] Cancelled Urine Protein Cancelled Urine Ketones Cancelled Urine Nitrite Cancelled Urine Bilirubin Cancelled Urine Urobilinogen Cancelled Ur Leukocyte Esterase Cancelled Ur Microscopic Cancelled Urine Hemoglobin Cancelled Urine Glucose Cancelled
--- NOTE | 2017-03-23 12:34 | NUCLEAR MEDICINE REPORT ---
EXAMINATION: PULMONARY VENTILATION PERFUSION STUDY CLINICAL INFORMATION: Chest pain, shortness of breath. COMPARISON: No previous radionuclide lung scan is available for comparison. A radiograph of the chest dated 03/22/2017 is available for comparison. CT scan of the chest dated 03/22/2017 is also available for comparison. TECHNIQUE: Serial gamma scintillation camera images were obtained over the posterior chest during the single breath, equilibrium rebreathing and washout of 8.8 mCi Xe 133 gas. The patient then received 4.1 mCi Tc-99m MAA intravenously and a 6-view perfusion study was performed. FINDINGS: Ventilation images: On the single breath and equilibrium images there is homogeneous distribution of gas bilaterally. During the washout phase there is no abnormal retention. Perfusion images: No segmental perfusion defects are present. There is homogeneous distribution of activity bilaterally. There are no focal anatomic appearing perfusion defects present. The cardiac silhouette and mediastinum are moderately dilated. IMPRESSION: Very low probability of pulmonary embolism.
--- NOTE | 2017-03-23 13:09 | PN- Housestaff ---
Subjective Follow-up For: Fever Hypertensive urgency Left-sided chest pain Tele-Events Since Last Visit: No tele events overnight Subjective: This morning patient is alert, awake and oriented. She is complaining of severe pain in left side of her chest when she moves in a certain position and with taking deep breath in. No difficulty breathing. Denies any nausea, vomiting, abdominal pain. Review of Systems Constitutional: Reports: see HPI. Objective Last 24 Hrs of Vital Signs/I&O Vital Signs Date Time Temp Pulse Resp B/P B/P Pulse O2 O2 Flow FiO2 Mean Ox Delivery Rate 03/23 0959 99.9 03/23 0952 74 180/90 03/23 0951 74 180/90 03/23 0951 74 180/90 03/23 0951 74 180/90 03/23 0657 99.0 03/23 0141 98.4 74 16 180/90 94 Room Air 03/23 0130 74 180/90 03/23 0030 98.2 03/22 2201 Room Air 03/22 2133 102.2 03/22 2117 87 208/82 03/22 1900 80 225/122 03/22 1608 100.0 85 22 196/103 03/22 1608 100.0 85 22 196/103 Intake & Output 03/23 1600 03/23 0800 03/23 0000 Intake Total 100 410 Output Total 0 Balance 100 410 Intake, IV 110 Intake, Oral 100 300 Number 0 Bowel Movements Output, Urine 0 Patient 161 lb Weight Weight Reported by Patient Measurement Method Physical Exam General Appearance: Alert, Oriented X3, Cooperative Lungs: Clear to Auscultation Abdomen: Normal Bowel Sounds, Soft, No Tenderness Extremities: No Edema Current Medications: Current Medications Sig/Bryan Start time Last Medication Dose Route Stop Time Status Admin Acetaminophen 650 MG Q4P PRN 03/22 1215 AC 03/23 PO 0959 Alprazolam 0 .STK-MED ONE 03/22 1405 DC PO Alprazolam 0.5 MG DAILY NEEDED PRN 03/22 1245 AC 03/22 PO 03/29 1244 1403 Apixaban 5 MG BID 03/22 2200 AC 03/23 PO 0951 Cefazolin Sodium 1,500 MG MoWeFr@03/22 Sodium Chloride 100 ML IV 2030 Cefazolin Sodium 1,500 MG .[MWF] 03/22 1600 CAN IV Clonidine 3 PAT Q168 03/22 1400 AC TOP Epoetin Carlos 6,000 UNIT ONCE ONE 03/22 1600 DC IV 03/22 1601 Epoetin Carlos 6,000 UNIT Wednesday .. 03/22 1600 AC IV Hydralazine HCl 100 MG TID 03/22 1600 AC 03/23 PO 0951 Hydromorphone HCl 1 MG Q6-PRN PRN 03/23 1000 AC IV Hydromorphone HCl 0.6 MG Q4-6 PRN PRN 03/22 2130 DC 03/23 IV 0950 Hydromorphone HCl 0.6 MG Q6-PRN PRN 03/22 1630 DC 03/22 IV 1650 Hydromorphone HCl 0.2 MG Q8P PRN 03/22 1345 DC IV Labetalol HCl 200 MG BID 03/22 2200 AC 03/23 PO 0951 Losartan Potassium 100 MG DAILY 03/23 1000 AC 03/23 PO 0951 Nifedipine 60 MG DAILY 03/23 1000 AC 03/23 PO 0952 Omeprazole 0 .STK-MED ONE 03/22 1316 DC PO Omeprazole 20 MG BID 03/22 1245 AC 03/23 PO 0951 Paricalcitol 8 MCG ONCE ONE 03/22 1600 DC IV 03/22 1601 Paricalcitol 8 MCG Wednesday .. 03/22 1600 AC IV Last 24 Hrs of Lab/Ashwin Results Last 24 Hrs of Labs/Mics: Laboratory Tests 03/22/17 2000: Troponin I 0.05 03/22/17 2000: Anion Gap 12, Estimated GFR 19 L, BUN/Creatinine Ratio 2.8 L 03/22/17 1856: Sodium Cancelled, Potassium Cancelled, Chloride Cancelled, Carbon Dioxide Cancelled, Anion Gap Cancelled, BUN Cancelled, Creatinine Cancelled, BUN/ Creatinine Ratio Cancelled 03/22/17 1600: Anion Gap 21 H, Estimated GFR 5 L, BUN/Creatinine Ratio 3.3 L 03/22/17 1440: Troponin I 0.05 Microbiology 03/22 2005 BLOOD: Blood Culture - CAN Cancelled: SPECIMEN NOT RECEIVED INTO LAB WITHIN REQUIRED TIME RANGE 03/22 1613 BLOOD: Blood Culture - COLB 03/22 1551 BLOOD: Blood Culture - CAN Cancelled: SPECIMEN NEVER RECEIVED Assessment/Plan Assessment: This is a 31-year-old woman with a history of hypertension, status post right basal ganglia lacunar infarcts, maintained on Eliquis, psoriasis and end-stage renal disease, presumed secondary to hypertension nephrosclerosis, history of fluid overload status post hemodialysis via left IJ Glen[place] cath status post removal because of left IJ thrombus status post placement of a new right IJ [place] cath. Recent admission at [facility] because of MSSA sepsis secondary to right IJ catheter which was removed with placement of a new left IJ catheter. Also history of right IJ thrombus discharged on cefazolin per dialysis protocol to complete a four-week course of antibiotics (last dose April 04) Problem list 1. Fevers with complaint of left-sided chest pain. ? Dialysis catheter site vs empyema Small left-sided pleural effusion on CT chest. Increasing pleural effusion on the left on chest x-ray. No evidence of PE on VQ scan. Trops 3 negative without any significant EKG changes. 2. Hypertensive urgency. On Nifedipine, losartan, labetalol, hydralazine and clonidine 3. Pain management 4. End-stage renal disease on dialysis. Wednesday and Wednesday PLAN * Monitor vitals closely * Continue Ancef for now * Adequate pain management * Will follow further ID recommendations * Strict I's and O's * Daily weights * DVT prophylaxis * Pain management with IV Dilaudid * Patient is full code Problem List: 1. Uncontrolled hypertension Pain Ratin Pain Location: left chest Pain Goal: Pain 4 or less Pain Plan: dilaudid Tomorrow's Labs & Rationales: bep DVT/Prophylaxis: pharmacological
--- NOTE | 2017-03-23 14:02 | PN- Infect Dx ---
Subjective Subjective: MAXIMUM TEMPERATURE 102.2. She continues to complain of pain in the left chest, which is worse with inspiration and movement. Objective Last 24 Hrs of Vital Signs/I&O Vital Signs Date Time Temp Pulse Resp B/P B/P Pulse O2 O2 Flow FiO2 Mean Ox Delivery Rate 03/23 1308 97.8 03/23 0959 99.9 03/23 0952 74 180/90 03/23 0951 74 180/90 03/23 0951 74 180/90 03/23 0951 74 180/90 03/23 0657 99.0 03/23 0141 98.4 74 16 180/90 94 Room Air 03/23 0130 74 180/90 03/23 0030 98.2 03/22 2201 Room Air 03/22 2133 102.2 03/22 2117 87 208/82 03/22 1900 80 225/122 03/22 1608 100.0 85 22 196/103 03/22 1608 100.0 85 22 196/103 Intake & Output 03/23 1600 03/23 0800 03/23 0000 Intake Total 100 410 Output Total 0 Balance 100 410 Intake, IV 110 Intake, Oral 100 300 Number 0 Bowel Movements Output, Urine 0 Patient 161 lb Weight Weight Reported by Patient Measurement Method Physical Exam Other Physical Findings: She appears relatively comfortable in no acute distress Neck left IJ Glenroy catheter with no inflammation at the site Lungs are clear Heart regular rhythm with no murmur Abdomen is soft, nontender with positive bowel sounds Extremities no cyanosis, clubbing or edema Results Last 24 Hours of Lab Results: Laboratory Tests 03/22 1856 1600 1440 Chemistry Sodium (137 - 145 mmol/L) 137 Cancelled 136 L Potassium (3.5 - 5.1 mmol/L) 3.1 L Cancelled 4.2 Chloride (98 - 107 mmol/L) 97 L Cancelled 95 L Carbon Dioxide (22 - 30 mmol/L) 28 Cancelled 21 L Anion Gap (5 - 16) 12 Cancelled 21 H BUN (7 - 17 mg/dL) 8 Cancelled 32 H Creatinine (0.5 - 1.0 mg/dL) 2.9 H Cancelled 9.6 *H Estimated GFR (>60 ml/min) 19 L 5 L BUN/Creatinine Ratio (7 - 25 %) 2.8 L Cancelled 3.3 L Troponin I (< 0.11 ng/ml) 0.05 0.05 Last 24 Hours of Ashwin Results: Blood cultures 2 March 22 negative Recent Imaging Studies: VQ scan March 22 very low probability of pulmonary embolism Assessment/Plan Impression: Fever with a normal white blood cell count on Cefazolin for recent MSSA sepsis now 2 weeks status post removal of an Glenroy catheter, which was presumably the source of her sepsis, with placement of a new Glenroy catheter 2 days later. The etiology of her left chest pain is unclear and could be secondary to an empyema, though she only has a small left pleural effusion on CT scan which is not felt to be amenable to drainage, or perhaps a discitis of the thoracic spine with radiation to the chest. Endocarditis is also possible, though a AARON on her recent admission was negative. The VQ scan was negative making a pulmonary embolus unlikely. Suggestion: 1. Follow-up recent cultures 2. Repeat echocardiogram 3. Consider MRI of the thoracic spine 4. Continue Cefazolin 1.5 grams IV after each dialysis
[2017-03-23 14:25] VITALS: BP 138/80
--- NOTE | 2017-03-23 15:44 | PN- Att Addend ---
Attending Addendum Attending Brief Note Patient seen and examined. Plan of care discussed with the medical team and the patient. Available lab work and radiology test reports were reviewed. Patient appears uncomfortable and complains of for severe pleuritic left lower chest pain which gets worse with movement or deep breathing. She refused CTA due to concerns with contrast allergy. She denies any cough or sputum production. Vital Signs Date Time Temp Pulse Resp B/P B/P Pulse O2 O2 Flow FiO2 Mean Ox Delivery Rate 03/23 1425 98.6 73 18 138/80 100 Room Air 03/23 1308 97.8 03/23 0959 99.9 03/23 0952 74 180/90 03/23 0951 74 180/90 03/23 0951 74 180/90 03/23 0951 74 180/90 03/23 0657 99.0 03/23 0141 98.4 74 16 180/90 94 Room Air 03/23 0130 74 180/90 03/23 0030 98.2 03/22 2201 Room Air 03/22 2133 102.2 03/22 2117 87 208/82 03/22 1900 80 225/122 03/22 1608 100.0 85 22 196/103 03/22 1608 100.0 85 22 196/103 Intake & Output 03/23 1600 03/23 0800 03/23 0000 Intake Total 100 410 Output Total 0 Balance 100 410 Intake, IV 110 Intake, Oral 100 300 Number 0 Bowel Movements Output, Urine 0 Patient 161 lb Weight Weight Reported by Patient Measurement Method Exam: General: Patient awake alert oriented with moderate distress due to pain; patient appears anxious CVS: S1 plus S2 without any murmur or gallops Chest: Last chest is tender but there is no overlying rash. Few scattered crepitation without any wheeze. There is no respiratory distress. Abdomen: Soft nontender, bowel sound present, no guarding or rebound MILL ATTENDANT: Awake alert oriented without any focal neuro deficit and follows command appropriately Extremities: No edema; no clubbing or cyanosis noted Laboratory Tests 03/226 1600 Chemistry Sodium (137 - 145 mmol/L) 137 Cancelled 136 L Potassium (3.5 - 5.1 mmol/L) 3.1 L Cancelled 4.2 Chloride (98 - 107 mmol/L) 97 L Cancelled 95 L Carbon Dioxide (22 - 30 mmol/L) 28 Cancelled 21 L Anion Gap (5 - 16) 12 Cancelled 21 H BUN (7 - 17 mg/dL) 8 Cancelled 32 H Creatinine (0.5 - 1.0 mg/dL) 2.9 H Cancelled 9.6 *H Estimated GFR (>60 ml/min) 19 L 5 L BUN/Creatinine Ratio (7 - 25 %) 2.8 L Cancelled 3.3 L Troponin I (< 0.11 ng/ml) 0.05 Microbiology Date/Time Procedure - Status Source Growth 03/22 2005 Blood Culture - CAN BLOOD Cancelled: SPECIMEN NOT RECEIVED INTO LAB WITHIN REQUIRED TIME RANGE 03/22 1613 Blood Culture - RES BLOOD 03/22 1551 Blood Culture - CAN BLOOD Cancelled: SPECIMEN NEVER RECEIVED VQ scan Very low probability of pulmonary embolism Renal ultrasound 1. Both kidneys are small with cortical thinning, consistent with chronic medical renal disease. 2. There are small cysts in both kidneys. 3. No hydronephrosis or echogenic renal calculi are demonstrated. CT head No acute intracranial pathology. Stable chronic changes. Assessment * Fever and suspected sepsis * Rule out PE-VQ scan is negative * Left pleuritic chest pain with evidence of pleural effusion- no evidence of PE. Possible underlying pneumonia process is not seen on CAT scan * End-stage renal disease on dialysis * Hypertensive urgency * Hyperkalemia * Mild anemia Plan * Continue Dilaudid 1 mg every 6 when necessary * Case discussed with Dr. Neymar Long MD. Plan is to continue cefazolin for now. * Follow-up blood cultures * Agree with thoracic spine MRI * Continue IV cefazolin with hemodialysis
[2017-03-23 22:21] VITALS: BP 140/80
[2017-03-24 06:52] VITALS: BP 160/80
--- NOTE | 2017-03-24 08:29 | PN- Att Addend ---
Attending Addendum Attending Brief Note Patient seen and examined. Plan of care discussed with the medical team and the patient. Available lab work and radiology test reports were reviewed. Patient was seen and examined during hemodialysis. Patient appears sleepy. She does not appear to be in severe distress. However she continues to complain of left lower chest pain when she moves. Vital Signs Date Time Temp Pulse Resp B/P B/P Pulse O2 O2 Flow FiO2 Mean Ox Delivery Rate 03/24 0652 98.3 80 20 160/80 97 Room Air 03/24 0038 98.2 03/23 2221 101.0 85 18 140/80 95 Room Air 03/23 2135 86 140/80 03/23 2135 86 140/80 03/23 2131 101.1 03/23 1701 69 140/90 03/23 1700 69 140/90 03/23 1425 98.6 73 18 138/80 100 Room Air 03/23 1308 97.8 03/23 0959 99.9 03/23 0952 74 180/90 03/23 0951 74 180/90 03/23 0951 74 180/90 03/23 0951 74 180/90 Intake & Output 03/24 1600 03/24 0800 03/24 0000 Intake Total 120 120 Output Total Balance 120 120 Intake, IV 20 Intake, Oral 120 100 Patient 141 lb Weight Weight Standing Scale Measurement Method Exam: General: Patient awake alert oriented with moderate distress due to pain; patient appears anxious CVS: S1 plus S2 without any murmur or gallops Chest: Last chest is tender but there is no overlying rash. Few scattered crepitation without any wheeze. There is no respiratory distress. Abdomen: Soft nontender, bowel sound present, no guarding or rebound MOTEL MANAGER: Awake alert oriented without any focal neuro deficit and follows command appropriately Extremities: No edema; no clubbing or cyanosis noted Laboratory Tests 03/24 0800 Chemistry Sodium Pending Potassium Pending Chloride Pending Carbon Dioxide Pending Anion Gap Pending BUN Pending Creatinine Pending BUN/Creatinine Ratio Pending Glucose Pending Calcium Pending Phosphorus Pending Magnesium Pending Albumin Pending Hematology CBC w Diff Pending WBC Pending RBC Pending Hgb Pending Hct Pending MCV Pending MCH Pending RDW Pending Plt Count Pending MPV Pending PUBS MCHC Pending VQ scan Very low probability of pulmonary embolism Renal ultrasound 1. Both kidneys are small with cortical thinning, consistent with chronic medical renal disease. 2. There are small cysts in both kidneys. 3. No hydronephrosis or echogenic renal calculi are demonstrated. CT head No acute intracranial pathology. Stable chronic changes. Assessment * Fever and suspected sepsis- blood cultures so far negative * Rule out PE-VQ scan is negative * Left pleuritic chest pain with evidence of pleural effusion- no evidence of PE. Possible underlying pneumonia process is not seen on CAT scan * End-stage renal disease on dialysis * Hypertensive urgency * Hyperkalemia * Mild anemia Plan * Change Dilaudid 1 mg every 4 when necessary * continue cefazolin for now. Given the patient started have fever despite being a cefazolin at home there is concern for possible resistance or a different bacterial infection. If patient remains febrile may need to consider switching antibiotic. This also concern for drug fever. * Repeat blood cultures * Agree with thoracic spine MRI; pt will need pre procedure iv ativan since she is claustrophobic
[2017-03-24 08:35] LABS: ABSOLUTE BASOPHIL COUNT 0 /CUMM (0.0-0.2); ABSOLUTE EOSINOPHIL COUNT 0.2 /CUMM (0.0-0.7); ABSOLUTE GRANULOCYTE CT 2.7 /CUMM (1.4-6.5); ABSOLUTE LYMPH COUNT 0.9 /CUMM (1.2-3.4); ABSOLUTE MONOCYTE COUNT 0.6 /CUMM (0.10-0.60); BASOPHIL % 0.3 % (0.0-2.0); EOSINOPHIL % 4.2 % (0-5); GRANULOCYTE % 61.5 % (42.2-75.2); HEMATOCRIT 27.2 % (37-47); MEAN CORPUSCULAR HGB 29.1 PG (27.0-31.0); MEAN CORPUSCULAR HGB CONC 32.5 G/DL (33.0-37.0); MEAN CORPUSCULAR VOLUME 89.6 FL (81.0-99.0); MEAN PLATELET VOLUME 8.3 FL (7.4-10.4); PLATELET COUNT 334 /CUMM (130-400); RBC DISTRIBUTION WIDTH 16.7 % (11.5-14.5); RED BLOOD CELL CT 3.04 /CUMM (4.20-5.40); WHITE BLOOD CELL COUNT 4.5 /CUMM (4.8-10.8)
--- NOTE | 2017-03-24 10:42 | PN- Nephrology ---
Assessment/Plan Assessment: 1. End-stage renal disease. hemodialysis underway today. The next treatment will be on Wednesday 2. Hypertension. Blood pressure better controlled overnight. 3. Anemia continue with Epogen 4. Suspected sepsis. Results of VQ scan noted. 5. Contrast allergy. Please note, she had a severe rash that persisted for months while on PD after having received IV contrast. This was in spite of her receiving the prep for allergic patient's prep She ought not to see contrast again ever Suggestion: 1. Next hemodialysis will be on Wednesday. 2. Pain management as per primary team 3. Change to a 3 potassium bath today because of the hypokalemia. Subjective Subjective: Seen with hemodialysis. Complaining of being cold. Apparently was complaining of needing more frequent pain meds. Of note, she was sleeping when I entered the room. Objective Vital Signs and I&Os Vital Signs Date Time Temp Pulse Resp B/P B/P Pulse O2 O2 Flow FiO2 Mean Ox Delivery Rate 03/24 0652 98.3 80 20 160/80 97 Room Air 03/24 0038 98.2 03/23 2221 101.0 85 18 140/80 95 Room Air 03/23 2135 86 140/80 03/23 2135 86 140/80 03/23 2131 101.1 03/23 1701 69 140/90 03/23 1700 69 140/90 03/23 1425 98.6 73 18 138/80 100 Room Air 03/23 1308 97.8 Intake & Output 03/24 1600 03/24 0400 03/23 1600 03/23 0400 03/22 1600 03/22 0400 Intake Total 120 120 730 410 315 Output Total 0 Balance 120 120 730 410 315 Intake, IV 20 30 110 285 Intake, Oral 120 100 700 300 30 Number 0 Bowel Movements Output, Urine 0 Patient 141 lb 161 lb 155 lb Weight Weight Standing Scale Reported by Patient Reported by Patient Measurement Method Physical Exam: General Appearance: well developed/nourished, no apparent distress, sleeping when I entered the room. Head: atraumatic, normal appearance Eyes: Bilateral: PERRL, EOMI, pale conjunctivae. Ears, Nose, Throat: hearing grossly normal Neck: supple left IJ Glenroy catheter Respiratory: normal breath sounds, chest non-tender, no respiratory distress Cardiovascular: regular rate/rhythm Gastrointestinal: normal bowel sounds, soft, non-tender Back: normal inspection, normal range of motion Extremities: normal inspection, normal capillary refill Neurologic/Psych: no motor/sensory deficits, no sensory deficits Skin: intact, normal color, warm/dry, no rash noted Current Medications: Current Medications Sig/Bryan Start time Last Medication Dose Route Stop Time Status Admin Acetaminophen 650 MG .STK-MED ONE 03/23 2131 DC PO 03/23 213 Acetaminophen 650 MG Q4P PRN 03/22 1215 03/23 PO 2131 Alprazolam 0.5 MG DAILY NEEDED PRN 03/22 1245 03/23 PO 03/29 1244 1705 Apixaban 5 MG BID 03/22 2200 03/23 PO 213 Cefazolin Sodium 1,500 MG MoWeFr@03/22 03/22 Sodium Chloride 100 ML IV 2030 Clonidine 3 PAT Q168 03/22 1400 AC TOP Epoetin Carlos 6,000 UNIT Wednesday .. 03/22 1600 AC IV Hydralazine HCl 100 MG TID 03/22 1600 AC 03/23 PO 2135 Hydromorphone HCl 0.4 MG ONCE ONE 03/24 0015 HI 03/24 IV 03/24 0016 0012 Hydromorphone HCl 0.4 MG ONCE ONE 03/23 1645 HI 03/23 IV 03/23 1646 1705 Hydromorphone HCl 1 MG Q6P PRN 03/23 1315 03/24 IV 0657 Hydromorphone HCl 1 MG Q6-PRN PRN 03/23 1000 HI 03/23 IV 1301 Labetalol HCl 200 MG TID 03/23 1600 AC 03/23 PO 2135 Labetalol HCl 200 MG BID 03/22 2200 HI 03/23 PO 0951 Losartan Potassium 100 MG DAILY 03/23 1000 03/23 PO 0951 Nifedipine 60 MG DAILY 03/23 1000 AC 03/23 PO 0952 Omeprazole 20 MG BID 03/22 1245 03/23 PO 2135 Ondansetron HCl 4 MG Q6P PRN 03/23 1315 03/24 IV 0700 Paricalcitol 8 MCG Wednesday .. 03/22 1600 AC IV Patient Medication 1 ED .STK-MED ONE 03/23 1416 DC Teaching ED 03/23 1417 Ramelteon 8 MG ONCE ONE 03/24 0215 DC 03/24 PO 03/24 0216 0230 Results Pertinent Lab Results: Laboratory Tests 03/24 03/22 03/22 0800 1999 1999 Chemistry Sodium (137 - 145 mmol/L) 135 L 137 Potassium (3.5 - 5.1 mmol/L) 3.4 L 3.1 L Chloride (98 - 107 mmol/L) 95 L 97 L Carbon Dioxide (22 - 30 mmol/L) 26 28 Anion Gap (5 - 16) 14 12 BUN (7 - 17 mg/dL) 23 H 8 Creatinine (0.5 - 1.0 mg/dL) 7.5 *H 2.9 H Estimated GFR (>60 ml/min) 6 L 19 L BUN/Creatinine Ratio (7 - 25 %) 3.1 L 2.8 L Glucose (65 - 99 mg/dL) 83 Calcium (8.4 - 10.2 mg/dL) 9.0 Phosphorus (2.5 - 4.5 mg/dL) 4.9 H Magnesium (1.6 - 2.3 mg/dL) 2.1 Troponin I (< 0.11 ng/ml) 0.05 Albumin (3.5 - 5.0 g/dL) 3.7 Hematology CBC w Diff NO MAN DIFF REQ WBC (4.8 - 10.8 /CUMM) 4.5 L RBC (4.20 - 5.40 /CUMM) 3.04 L Hgb (12.0 - 16.0 G/DL) 8.8 L Hct (37 - 47 %) 27.2 L MCV (81.0 - 99.0 FL) 89.6 MCH (27.0 - 31.0 PG) 29.1 RDW (11.5 - 14.5 %) 16.7 H Plt Count (130 - 400 /CUMM) 334 MPV (7.4 - 10.4 FL) 8.3 Gran % (42.2 - 75.2 %) 61.5 Lymphocytes % (20.5 - 51.1 %) 21.1 Monocytes % (1.7 - 9.3 %) 12.9 H Eosinophils % (0 - 5 %) 4.2 Basophils % (0.0 - 2.0 %) 0.3 Absolute Granulocytes (1.4 - 6.5 /CUMM) 2.7 Absolute Lymphocytes (1.2 - 3.4 /CUMM) 0.9 L Absolute Monocytes (0.10 - 0.60 /CUMM) 0.6 Absolute Eosinophils (0.0 - 0.7 /CUMM) 0.2 Absolute Basophils (0.0 - 0.2 /CUMM) 0 PUBS MCHC (33.0 - 37.0 G/DL) 32.5 L 03/22 03/22 03/22 03/22 03/22 1856 1600 1440 1201 1025 Chemistry Sodium (137 - 145 mmol/L) Cancelled 136 L Potassium (3.5 - 5.1 mmol/L) Cancelled 4.2 Chloride (98 - 107 mmol/L) Cancelled 95 L Carbon Dioxide (22 - 30 mmol/L) Cancelled 21 L Anion Gap (5 - 16) Cancelled 21 H BUN (7 - 17 mg/dL) Cancelled 32 H Creatinine (0.5 - 1.0 mg/dL) Cancelled 9.6 *H Estimated GFR (>60 ml/min) 5 L BUN/Creatinine Ratio (7 - 25 %) Cancelled 3.3 L Lactic Acid Cancelled Troponin I (< 0.11 ng/ml) 0.05 Urines Urine Color Cancelled Urine Clarity Cancelled Urine pH Cancelled Ur Specific [place] Cancelled Urine Protein Cancelled Urine Ketones Cancelled Urine Nitrite Cancelled Urine Bilirubin Cancelled Urine Urobilinogen Cancelled Ur Leukocyte Esterase Cancelled Ur Microscopic Cancelled Urine Hemoglobin Cancelled Urine Glucose Cancelled 03/22 0727 Chemistry Sodium (137 - 145 mmol/L) 133 L Potassium (3.5 - 5.1 mmol/L) 4.3 Chloride (98 - 107 mmol/L) 97 L Carbon Dioxide (22 - 30 mmol/L) 21 L Anion Gap (5 - 16) 15 BUN (7 - 17 mg/dL) 29 H Creatinine (0.5 - 1.0 mg/dL) 8.9 *H Estimated GFR (>60 ml/min) 5 L BUN/Creatinine Ratio (7 - 25 %) 3.3 L Glucose (65 - 99 mg/dL) 84 Lactic Acid (0.7 - 2.1 mmol/L) 0.6 L Calcium (8.4 - 10.2 mg/dL) 8.9 Total Bilirubin (0.2 - 1.3 mg/dL) 0.5 AST (14 - 36 U/L) 20 ALT (9 - 52 U/L) 21 Alkaline Phosphatase (<127 U/L) 79 Troponin I (< 0.11 ng/ml) 0.04 Total Protein (6.3 - 8.2 g/dL) 6.9 Albumin (3.5 - 5.0 g/dL) 3.9 Globulin (1.9 - 4.2 gm/dL) 3.0 Albumin/Globulin Ratio (1.1 - 2.2 %) 1.3 Lipase (23 - 300 U/L) 37 Hematology CBC w Diff NO MAN DIFF REQ WBC (4.8 - 10.8 /CUMM) 6.2 RBC (4.20 - 5.40 /CUMM) 2.84 L Hgb (12.0 - 16.0 G/DL) 8.2 L Hct (37 - 47 %) 25.1 L MCV (81.0 - 99.0 FL) 88.3 MCH (27.0 - 31.0 PG) 28.9 RDW (11.5 - 14.5 %) 16.6 H Plt Count (130 - 400 /CUMM) 365 MPV (7.4 - 10.4 FL) 8.2 Gran % (42.2 - 75.2 %) 83.8 H Lymphocytes % (20.5 - 51.1 %) 9.9 L Monocytes % (1.7 - 9.3 %) 3.8 Eosinophils % (0 - 5 %) 2.4 Basophils % (0.0 - 2.0 %) 0.1 Absolute Granulocytes (1.4 - 6.5 /CUMM) 5.2 Absolute Lymphocytes (1.2 - 3.4 /CUMM) 0.6 L Absolute Monocytes (0.10 - 0.60 /CUMM) 0.2 Absolute Eosinophils (0.0 - 0.7 /CUMM) 0.1 Absolute Basophils (0.0 - 0.2 /CUMM) 0 PUBS MCHC (33.0 - 37.0 G/DL) 32.8 L
--- NOTE | 2017-03-24 11:43 | PN- Infect Dx ---
Subjective Subjective: MAXIMUM TEMPERATURE 101. She continues to complain of severe left chest pain, worse with movement, inspiration and yawning. She also reports chills while on dialysis. Objective Last 24 Hrs of Vital Signs/I&O Vital Signs Date Time Temp Pulse Resp B/P B/P Pulse O2 O2 Flow FiO2 Mean Ox Delivery Rate 03/24 0652 98.3 80 20 160/80 97 Room Air 03/24 0038 98.2 03/23 2221 101.0 85 18 140/80 95 Room Air 03/23 2135 86 140/80 03/23 2135 86 140/80 03/23 2131 101.1 03/23 1701 69 140/90 03/23 1700 69 140/90 03/23 1425 98.6 73 18 138/80 100 Room Air 03/23 1308 97.8 Intake & Output 03/24 1600 03/24 0800 03/24 0000 Intake Total 120 120 Output Total Balance 120 120 Intake, IV 20 Intake, Oral 120 100 Patient 160 lb 141 lb Weight Weight Standing Scale Measurement Method Physical Exam Other Physical Findings: She appears uncomfortable secondary to her chest pain Skin no rash Neck left IJ Glenroy catheter with no inflammation at the site Lungs are clear Heart regular rhythm with a 1/6 systolic ejection murmur Abdomen is soft, nontender with positive bowel sounds Extremities no cyanosis, clubbing or edema Results Last 24 Hours of Lab Results: Laboratory Tests 03/24 0800 Chemistry Sodium (137 - 145 mmol/L) 135 L Potassium (3.5 - 5.1 mmol/L) 3.4 L Chloride (98 - 107 mmol/L) 95 L Carbon Dioxide (22 - 30 mmol/L) 26 Anion Gap (5 - 16) 14 BUN (7 - 17 mg/dL) 23 H Creatinine (0.5 - 1.0 mg/dL) 7.5 *H Estimated GFR (>60 ml/min) 6 L BUN/Creatinine Ratio (7 - 25 %) 3.1 L Glucose (65 - 99 mg/dL) 83 Calcium (8.4 - 10.2 mg/dL) 9.0 Phosphorus (2.5 - 4.5 mg/dL) 4.9 H Magnesium (1.6 - 2.3 mg/dL) 2.1 Albumin (3.5 - 5.0 g/dL) 3.7 Hematology CBC w Diff NO MAN DIFF REQ WBC (4.8 - 10.8 /CUMM) 4.5 L RBC (4.20 - 5.40 /CUMM) 3.04 L Hgb (12.0 - 16.0 G/DL) 8.8 L Hct (37 - 47 %) 27.2 L MCV (81.0 - 99.0 FL) 89.6 MCH (27.0 - 31.0 PG) 29.1 RDW (11.5 - 14.5 %) 16.7 H Plt Count (130 - 400 /CUMM) 334 MPV (7.4 - 10.4 FL) 8.3 Gran % (42.2 - 75.2 %) 61.5 Lymphocytes % (20.5 - 51.1 %) 21.1 Monocytes % (1.7 - 9.3 %) 12.9 H Eosinophils % (0 - 5 %) 4.2 Basophils % (0.0 - 2.0 %) 0.3 Absolute Granulocytes (1.4 - 6.5 /CUMM) 2.7 Absolute Lymphocytes (1.2 - 3.4 /CUMM) 0.9 L Absolute Monocytes (0.10 - 0.60 /CUMM) 0.6 Absolute Eosinophils (0.0 - 0.7 /CUMM) 0.2 Absolute Basophils (0.0 - 0.2 /CUMM) 0 PUBS MCHC (33.0 - 37.0 G/DL) 32.5 L Last 24 Hours of Ashwin Results: Blood cultures March 22 negative Assessment/Plan Impression: Fevers persist with white blood cell count remaining normal on Cefazolin for recent MSSA sepsis now presumed secondary to an infected Glenroy catheter, which was removed 15 days ago, with placement of a new Glenroy catheter 2 days later. The etiology of her left chest pain is unclear, with a negative VQ scan and with only a small left pleural effusion on the recent CT scan, not felt by IR to be amenable to aspiration. Pericarditis is possible, possibly uremic in origin, though she is on dialysis. Endocarditis is also possible, though a AARON on her recent admission was negative. A discitis of the thoracic spine with radiation to the chest is possible, though seems unlikely. Suggestion: 1. Repeat blood cultures 2 2. Repeat echocardiogram and EKG 3. Consider MRI of the thoracic spine 4. Continue Cefazolin 1.5 grams IV after each dialysis
--- NOTE | 2017-03-24 12:32 | PN- Housestaff ---
Subjective Follow-up For: Fever Hypertensive urgency Left-sided chest pain Subjective: This morning patient is having dialysis. She reports that her left-sided chest pain is better right now. Review of Systems Constitutional: Reports: see HPI. Objective Last 24 Hrs of Vital Signs/I&O Vital Signs Date Time Temp Pulse Resp B/P B/P Pulse O2 O2 Flow FiO2 Mean Ox Delivery Rate 03/24 0652 98.3 80 20 160/80 97 Room Air 03/24 0038 98.2 03/23 2221 101.0 85 18 140/80 95 Room Air 03/23 2135 86 140/80 03/23 2135 86 140/80 03/23 2131 101.1 03/23 1701 69 140/90 03/23 1700 69 140/90 03/23 1425 98.6 73 18 138/80 100 Room Air 03/23 1308 97.8 Intake & Output 03/24 1600 03/24 0800 03/24 0000 Intake Total 120 120 Output Total Balance 120 120 Intake, IV 20 Intake, Oral 120 100 Patient 160 lb 141 lb Weight Weight Standing Scale Measurement Method Physical Exam General Appearance: Alert, Oriented X3, Cooperative, No Acute Distress Neck: Supple Cardiovascular: Regular Rate Lungs: Clear to Auscultation Abdomen: Normal Bowel Sounds, Soft, No Tenderness Extremities: No Edema Assessment/Plan Assessment: This is a 31-year-old woman with a history of hypertension, status post right basal ganglia lacunar infarcts, maintained on Eliquis, psoriasis and end-stage renal disease, presumed secondary to hypertension nephrosclerosis, history of fluid overload status post hemodialysis via left IJ Glenroy cath status post removal because of left IJ thrombus status post placement of a new right IJ Glenroy cath. Recent admission at [facility] because of MSSA sepsis secondary to right IJ catheter which was removed with placement of a new left IJ catheter. Also history of right IJ thrombus discharged on cefazolin per dialysis protocol to complete a four-week course of antibiotics (last dose April 04) Problem list 1. Fevers with complaint of left-sided chest pain. ? Dialysis catheter site vs empyema vs drug fever. Small left-sided pleural effusion on CT chest. Increasing pleural effusion on the left on chest x-ray. No evidence of PE on VQ scan. Trops 3 negative without any significant EKG changes. 2. Hypertensive urgency. On Nifedipine, losartan, labetalol, hydralazine and clonidine 3. Pain management 4. End-stage renal disease on dialysis. Wednesday and Wednesday PLAN * Monitor vitals closely * Continue Ancef for now * Blood cx x 2 * Echocardiogram * MRI thoracic spine today * Strict I's and O's * Daily weights * DVT prophylaxis * Pain management with IV Dilaudid * Patient is full code Problem List: 1. Acute pain Pain Ratin Pain Location: left chest Pain Goal: Pain 4 or less Pain Plan: dilaudid Tomorrow's Labs & Rationales: cbc,bep DVT/Prophylaxis: pharmacological
[2017-03-24 14:47] VITALS: BP 160/74
--- NOTE | 2017-03-24 15:24 | MRI REPORT ---
EXAMINATION: MR THORACIC SPINE WITHOUT CONTRAST CLINICAL INFORMATION: Question discitis/osteomyelitis. Pain in chest. COMPARISON: None TECHNIQUE: MRI of the thoracic spine without contrast was obtained. FINDINGS: The discs are well-hydrated. The marrow is homogeneously low in signal. No compression fractures or subluxations are seen. No cord signal abnormality is identified. No intradural extramedullary or epidural soft tissue abnormality is seen. There are no disc protrusions, central canal stenosis, or foraminal narrowing. No marrow or soft tissue edematous changes are seen. A thoracic kyphosis is evident. 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 The paraspinal soft tissues are unremarkable. IMPRESSION: Aside from a thoracic kyphosis, normal MRI of the thoracic spine. No evidence of discitis/osteomyelitis. Homogeneous low marrow signal may be within normal limits for a young female patient of this age. Findings can also be seen with marrow hyperplasia/reconversion in the setting of anemia. Recommend clinical correlation.
[2017-03-24 21:42] VITALS: BP 140/70
[2017-03-25 07:44] VITALS: BP 150/80
[2017-03-25 07:59] LABS: ABSOLUTE BASOPHIL COUNT 0 /CUMM (0.0-0.2); ABSOLUTE EOSINOPHIL COUNT 0.2 /CUMM (0.0-0.7); ABSOLUTE GRANULOCYTE CT 2.4 /CUMM (1.4-6.5); ABSOLUTE LYMPH COUNT 1.1 /CUMM (1.2-3.4); ABSOLUTE MONOCYTE COUNT 0.4 /CUMM (0.10-0.60); BASOPHIL % 0.5 % (0.0-2.0); EOSINOPHIL % 4.5 % (0-5); GRANULOCYTE % 57.2 % (42.2-75.2); HEMATOCRIT 29.3 % (37-47); MEAN CORPUSCULAR HGB CONC 32.3 G/DL (33.0-37.0); MEAN CORPUSCULAR VOLUME 89.8 FL (81.0-99.0); MEAN PLATELET VOLUME 8.4 FL (7.4-10.4); PLATELET COUNT 342 /CUMM (130-400); RBC DISTRIBUTION WIDTH 17.2 % (11.5-14.5); RED BLOOD CELL CT 3.26 /CUMM (4.20-5.40); WHITE BLOOD CELL COUNT 4.1 /CUMM (4.8-10.8)
--- NOTE | 2017-03-25 08:03 | Discharge Summary ---
Visit Information Visit Dates Admission Date: 03/22/17 Discharge Date: 03/25/2017 Hospital Course Course Attending Physician: TONO COTA,LETICIA Primary Care Physician: STANLEY COTA,[place] Course: This is a 31-year-old woman with a history of hypertension, status post right basal ganglia lacunar infarcts, maintained on Eliquis, psoriasis and end-stage renal disease, presumed secondary to hypertension nephrosclerosis, maintained on peritoneal dialysis,via a Tenckhoff catheter, which remains in place, until 6 weeks prior to admission, at which time she was hospitalized with fluid overload and was begun on hemodialysis via a left IJ Glenroy catheter, which was removed at [facility] because of a left IJ thrombus, requiring placement of a new right IJ Glenroy catheter, hospitalized at [facility] [facility] 3 weeks prior to admission with MSSA sepsis attributed to the right IJ catheter, which was removed with placement of a new left IJ catheter 2 days later, with evidence of a right IJ thrombus and with a AARON negative for any vegetations, discharged on Cefazolin 1.5 g IV to be given after each dialysis to complete a four-week course of antibiotics, with her dialysis 1 week prior to admission complicated by a clot in the catheter, which was removed, presented to the emergency room with a one- day history of severe left chest pain, limiting her ability to take a deep breath, associated with sweats and a cold feeling but with no documented fevers. On admission she was febrile to 100.2, with blood pressure 230/120. Laboratory data revealed a white blood cell count of 6000, BUN/creatinine 29 and 8.9, with normal liver enzymes. Chest x-ray revealed an increasing left pleural effusion and a trace right pleural effusion. CT of the chest revealed a small left pleural effusion, smaller than the previous study, with no focal infiltrate. Doppler of the right upper extremity was negative for DVT. Renal ultrasound was negative for hydronephrosis. CT of the head was negative for any acute process. She was given Vancomycin and Ciprofloxacin in the emergency room. She was admitted on telemetry floor. 1. Fever with left-sided chest/flank pain Etiology of fever and left-sided chest pain was unclear. She was also seen by Dr. Long, infectious disease specialist. Differentials were empyema though she only had a small left pleural effusion on CT scan which was not felt to be amenable to drainage or perhaps a discitis of the thoracic spine with radiation to the chest. Endocarditis was also possible, though a AARON on her recent admission was negative. The VQ scan was negative making a pulmonary embolus unlikely. ID recommended CTA but she was allergic to iodinated contrast. Plan was to premedicate her with prednisone and then obtain CTA but patient refused. Her cefazolin was continued with each dialysis. ECHOCARDIOGRAM 03/24/17 CONCLUSIONS 1. There are no obvious vegetative lesions detected on this examination 2. Aortic sclerosis is present with no valvular stenosis or insufficiency 3. Mitral leaflet thickening is present with moderate anular calcification and minimal mitral insufficiency with mild to moderate left atrial enlargement 4. There is no significant pericardial fluid present 5. The left ventricular chamber size is normal with moderate to severe concentic hypertrophy and hyperdynamic systolic function. 6. The right heart structures are grossly normal. Minimal to mild tricuspid insufficiency is present. The RV systolic pressure was not accurately assessed 7. There are no obvious vegetations detected on this study. If clinically indicated, a AARON would better exclude valvular vegetative lesions. MRI-THORACIC SPINE 03/24/17 IMPRESSION: Aside from a thoracic kyphosis, normal MRI of the thoracic spine. No evidence of discitis/osteomyelitis. Homogeneous low marrow signal may be within normal limits for a young female patient of this age. Findings can also be seen with marrow hyperplasia/reconversion in the setting of anemia. Recommend clinical correlation. MAXIMUM TEMPERATURE was 102.2 during hospitalization. Her pain was managed with IV Dilaudid 1 mg every 4 hours as needed. She did not spike fever for last 48 hours before discharge. Blood cultures remained negative. Repeat EKG did not show any acute changes. On March 25 morning patient pain was well controlled. She requested to go home because she had an appointment with her primary care provider at 3 PM and next day was her daughter's birthday. Discharge plan was discussed with both infectious disease specialist and Dr. Stallings. Plan was to continue her Ancef with dialysis till April 04. 2. Hypertensive urgency On admission her blood pressure was 230/120. Her home antihypertensives were resumed in hospital. Her blood pressure was 150/80 on discharge. 3. End-stage renal disease on dialysis. Wednesday and Wednesday Hemodialysis was continued here in hospital. Ancef was given with dialysis. Allergies: Coded Allergies: Iodinated Contrast- Oral and IV Dye (Iodinated Contrast Media - Oral and) ( Intermediate, HIVES AND SWELLING 12/21/16) morphine (Intermediate, HIVES 12/21/16) Penicillins (RASH 12/21/16) hydroxyzine (PER PT UNKNOWN 12/21/16) lisinopril (ANGIODEMA 12/21/16) LEIDA Inhibitors (ANGIODEMA 12/21/16) Disposition Summary Disposition Principal Diagnosis: Fever of unknown etiology Additional Diagnosis: Hypertensive urgency Discharge Disposition: home or self care Discharge Instructions General Discharge Information Code Status: Full Code Patient's Diet: Heart healthy diet Patient's Activity: Independent Follow-Up Instructions/Appts: 1. Please follow-up with your primary care provider after discharge 2. Last dose of Ancef would be on 04/04/2017 3. Next hemodialysis will be on Wednesday Medications at Discharge Discharge Medications: Continue taking these medications: Epoetin Carlos (Epogen) 10,000 UNIT/ML VIAL 10,000 Unit Inject into fatty tissue EVERY 2 WEEKS Comments: NOT GIVEN IN HOSPITAL Losartan (Cozaar) 100 MG TABLET 1 Tablet ORAL DAILY Comments: Last Taken: 03/11/17 Time: 0830 AM Calcium (Elemental-Fr Calcarb) (Calcium Carbonate) 500 MG/5ML ORAL.SUSP 20 Milliliters ORAL TWICE DAILY Comments: Last Taken: 03/11/17 Time: 0900AM Alprazolam (Xanax) 0.5 MG TABLET 1 Tablet ORAL DAILY NEEDED as needed for ANXIETY Comments: Last Taken: 03/11/17 Time: 0100AM Hydralazine HCl (Hydralazine HCl) 100 MG TABLET 1 Tablet ORAL THREE TIMES DAILY Comments: Last Taken: 03/11/17 Time: 80137 AM Ondansetron HCl (Zofran) 4 MG TABLET 1 Tablet ORAL Every 6-8 Hours as Needed as needed for NAUSEA Comments: NOT GIVEN IN THE HOSPITAL Omeprazole (Omeprazole) 20 MG CAPSULE.DR 1 Tablet ORAL TWICE DAILY Qty = 14 Comments: Last Taken: 03/11/17 Time: 0600AM Apixaban (Eliquis) 5 MG TABLET 1 Tablet ORAL TWICE DAILY Qty = 60 Comments: Last Taken: 03/11/17 Time: 0900AM Mupirocin (Mupirocin) 2 % OINT...G. 1 Application On the skin As Directed Qty = 22 Instructions: apply to affected area(s) Comments: NOT GIVEN Nifedipine (Procardia XL) 30 MG TAB.ER.24 2 Tablet ORAL DAILY Qty = 30 Instructions: . Comments: Last Taken: 03/11/17 Time: 0830AM Clonidine (Clonidine) 0.1 MG/24 HOUR PATCH.TDWK 3 Patch On the skin Once a Week Qty = 30 Instructions: . Comments: Last Taken: 03/05/17 Time: 1330PM Labetalol HCl (Labetalol HCl) 200 MG TABLET 1 Tablet ORAL THREE TIMES DAILY Qty = 60 Cefazolin (Cefazolin 1 Gm-D5w Bag) 1 GRAM/50 ML PIGGYBACK 1,500 Milligram INTRAVEN MWF Qty = 11 Instructions: LAST DOSE WOULD BE ON 04/04/2017 Copies To: STANLEY COTA,CLARA
--- NOTE | 2017-03-25 08:12 | ECHOCARDIOGRAM REPORT ---
TERI BORRERO Age: 31 : 1985 Gender: F Exam Date: 03/24/2017 16:30 Exam Location: [place] Ht (in): 61 Wt (lb): 141 BSA: 1.68 BP: 160 / 74 Ordering Physician: AMANDA BERNARD MD Referring Physician: AMANDA BERNARD MD Technologist: Spring Cameron LUZ ELENA Room Number: 188 Indications: CHEST PAIN, VEGETATIONS Rhythm: Sinus Technical Quality: fair FINDINGS Left Ventricle normal size. moderate to severe lvh. Ejection fraction greater than 75% Right Ventricle Grossly normal Right Atrium Normal Left Atrium Mild to moderate enlargementmild to moderate left atrial dilatation. Mild to moderate left atrial dilatation. Mitral Valve Mitral leaflets thickened. Moderate anular calcification. Minimal mitral insufficiency Aortic Valve Aortic sclerosis. No stenosis. Trileaflet valve Tricuspid Valve Grossly normal Minimal TR Pulmonic Valve Grossly normal Pericardium No significant effusion Great Vessels Normal size ascending aorta CONCLUSIONS 1. There are no obvious vegetative lesions detected on this examination 2. Aortic sclerosis is present with no valvular stenosis or insufficiency 3. Mitral leaflet thickening is present with moderate anular calcification and minimal mitral insufficiency with mild to moderate left atrial enlargement 4. There is no significant pericardial fluid present 5. The left ventricular chamber size is normal with moderate to severe concentic hypertrophy and hyperdynamic systolic function. 6. The right heart structures are grossly normal. Minimal to mild tricuspid insufficiency is present. The RV systolic pressure was not accurately assessed 7. There are no obvious vegetations detected on this study. If clinically indicated, a AARON would better exclude valvular vegetative lesions Gudelia Mariee M.D. (Electronically Signed) Final Date: 25 March 2017 08:11 MEASUREMENTS (Male / Female) Normal Values 2D ECHO LV Diastolic Diameter PLAX 4.5 cm 4.2 - 5.9 / 3.9 - 5.3 cm LV Systolic Diameter PLAX 2.3 cm 2.1 - 4.0 cm LV Fractional Shortening PLAX 48.9 % 25 - 46 % LV Ejection Fraction 2D Teich 80.4 % IVS Diastolic Thickness 1.6 cm LVPW Diastolic Thickness 1.6 cm LV Relative Wall Thickness 0.7 RV Internal Dim ED PLAX 3.0 cm 1.9 - 3.8 cm LVOT Diameter 1.9 cm Aortic Root Diameter 3.0 cm LA Systolic Diameter LX 4.1 cm 3.0 - 4.0 / 2.7 - 3.8 cm LA Volume 58.0 cm 18 - 58 / 22 - 52 cm Ascending Aorta Diameter 3.2 cm DOPPLER AV Peak Velocity 241.0 cm/s AV Peak Gradient 23.2 mmHg AV Mean Velocity 174.0 cm/s AV Mean Gradient 14.0 mmHg AV Velocity Time Integral 38.9 cm LVOT Peak Velocity 233.0 cm/s LVOT Peak Gradient 21.7 mmHg LVOT Mean Velocity 175.0 cm/s LVOT Mean Gradient 14.0 mmHg LVOT Velocity Time Integral 37.7 cm LVOT Stroke Volume 106.9 cm AV Area Cont Eq vti 2.7 cm AV Area Cont Eq pk 2.7 cm MV Peak Velocity 133.0 cm/s MV Peak Gradient 7.1 mmHg MV Mean Velocity 85.9 cm/s MV Mean Gradient 3.0 mmHg Mitral E Point Velocity 125.0 cm/s Mitral A Point Velocity 114.0 cm/s Mitral E to A Ratio 1.1 MV PHT Velocity 135.0 cm/s MV Deceleration [place] 461.0 cm/s MV Pressure Half Time 87.9 ms MV Area PHT 2.5 cm MV Deceleration Time 359.0 ms TR Peak Velocity 224.0 cm/s TR Peak Gradient 20.1 mmHg Right Atrial Pressure 5.0 mmHg Pulmonary Artery Systolic Pressu 25.1 mmHg Right Ventricular Systolic Press 25.1 mmHg PV Peak Velocity 170.0 cm/s PV Peak Gradient 11.6 mmHg PV Mean Velocity 113.0 cm/s PV Mean Gradient 6.0 mmHg PV Velocity Time Integral 31.7 cm LV E' Lateral Velocity 7.3 cm/s Mitral E to LV E' Lateral Ratio 17.1 LV E' Septal Velocity 5.2 cm/s Mitral E to LV E' Septal Ratio 24.2
[2017-03-25 09:26] VITALS: BP 150/80
[2017-03-25] MEDS ORDERED: LABETALOL HCL100 M1 PO (13:27)
[2017-03-25] MEDS ORDERED: LABETALOL HCL200 M1 PO (13:29)
--- NOTE | 2017-03-25 13:33 | Patient Discharge Instructions ---
Discharge Instructions General Discharge Information You were seen/treated for: Fever Hypertensive urgency Left-sided chest pain Special Instructions: 1. Please followup with your primary care provider after discharge 2. Last dose of cefazolin would be on 04/04/2017 Diet Recommended Diet: Heart Healthy Activity Full Activity/No Limits: Yes Acute Coronary Syndrome Inclusion Criteria At DC or during hospital stay patient has or had the following: ACS DIAGNOSIS No Discharge Core Measures Meds if any: Prescribed or Continued at Discharge Meds if any: NOT Prescribed or Continued at Discharge Congestive Heart Failure Inclusion Criteria At DC or during hospital stay patient has or had the following: CHF DIAGNOSIS No Discharge Core Measures Meds if any: Prescribed or Continued at Discharge Meds if any: NOT Prescribed or Continued at Discharge Cerebrovascular accident Inclusion Criteria At DC or during hospital stay patient has or had the following: CVA/TIA Diagnosis No Discharge Core Measures Meds if any: Prescribed or Continued at Discharge Meds if any: NOT Prescribed or Continued at Discharge Venous thromboembolism Inclusion Criteria VTE Diagnosis No VTE Type NONE VTE Confirmed by (Test) NONE Discharge Core Measures - Per Current guidelines, there needs to be overlap - treatment for the first 5 days of Warfarin therapy. - If discharged on Warfarin prior to 5 days of - overlap therapy, the patient will need to be - assessed for post discharge needs including - *Post discharge parental anticoagulation - *Warfarin and/or parental anticoagulation education - *Follow up date to check INR post discharge At least 5 days overlap therapy as Inpatient No Meds if any: Prescribed or Continued at Discharge Note: Overlap Therapy is Warfarin and Anticoagulant Meds if any: NOT Prescribed or Continued at Discharge
[2017-03-25] MEDS ORDERED: CEFAZOLIN1 GM/50 M1 IV ×2 (13:58→14:02)
--- NOTE | 2017-03-25 14:44 | PN- Att Addend ---
Attending Addendum Attending Brief Note Patient seen and examined. Plan of care discussed with the medical team and the patient. Available lab work and radiology test reports were reviewed. Patient had hemodialysis yesterday. Patient appears sleepy. Today she denies any pain or fever. She also go home today. Vital Signs Date Time Temp Pulse Resp B/P B/P Pulse O2 O2 Flow FiO2 Mean Ox Delivery Rate 03/25 0926 64 150/80 03/25 0926 64 150/80 03/25 0926 64 150/80 03/25 0926 64 150/80 03/25 0800 Room Air 03/25 0744 97.8 64 20 150/80 97 Room Air 03/24 2156 88 138/70 03/24 2156 88 138/70 03/24 2142 98.9 79 20 140/70 95 03/24 1811 79 146/60 03/24 1811 79 146/60 03/24 1447 98.7 63 18 160/74 98 Room Air Intake & Output 03/25 1600 03/25 0800 03/25 0000 Intake Total 240 100 500 Output Total Balance 240 100 500 Intake, IV 100 Intake, Oral 240 100 400 Number 0 Bowel Movements Exam: General: Patient awake alert oriented with moderate distress due to pain; patient appears anxious CVS: S1 plus S2 without any murmur or gallops Chest: Last chest is tender but there is no overlying rash. Few scattered crepitation without any wheeze. There is no respiratory distress. 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 There are no obvious vegetative lesions detected on this examination 2. Aortic sclerosis is present with no valvular stenosis or insufficiency 3. Mitral leaflet thickening is present with moderate anular calcification and minimal mitral insufficiency with mild to moderate left atrial enlargement 4. There is no significant pericardial fluid present 5. The left ventricular chamber size is normal with moderate to severe concentic hypertrophy and hyperdynamic systolic function. 6. The right heart structures are grossly normal. Minimal to mild tricuspid insufficiency is present. The RV systolic pressure was not accurately assessed 7. There are no obvious vegetations detected on this study. If clinically indicated, a AARON would better exclude valvular vegetative lesions Assessment * Fever and suspected sepsis- blood cultures so far negative; MRI negative for osteomyelitis and echocardiogram does not show any vegetations. Patient's fever has resolved. * Rule out PE-VQ scan is negative * Left pleuritic chest pain with evidence of pleural effusion- no evidence of PE. Possible underlying pneumonia process is not seen on CAT scan * End-stage renal disease on dialysis * Hypertensive urgency * Hyperkalemia * Mild anemia Plan * continue cefazolin for now till April 04. * Patient stable for discharge home today * Patient disposition and discharge plan was discussed with infectious disease by the environmental health and safety intern. Dr. Neymar Long MD agrees the patient can be discharged. Total time spent in preparation for discharge plan, patient education, and CMR preparation was 35 minutes.
--- NOTE | 2017-03-25 15:15 | PN- Infect Dx ---
Subjective Subjective: Afebrile. She feels improved with no further pain. Objective Last 24 Hrs of Vital Signs/I&O Vital Signs Date Time Temp Pulse Resp B/P B/P Pulse O2 O2 Flow FiO2 Mean Ox Delivery Rate 03/25 926 64 150/80 03/25 09 64 150/80 03/25 0926 64 150/80 03/25 0926 64 150/80 03/25 0800 Room Air 03/25 0744 97.8 64 20 150/80 97 Room Air 03/24 2156 88 138/70 03/24 2156 88 138/70 03/24 2142 98.9 79 20 140/70 95 03/24 1811 79 146/60 03/24 1811 79 146/60 Intake & Output 03/25 1600 03/25 0800 03/25 0000 Intake Total 240 100 500 Output Total Balance 240 100 500 Intake, IV 100 Intake, Oral 240 100 400 Number 0 Bowel Movements Physical Exam Other Physical Findings: She appears comfortable in no acute distress Neck left IJ Glenroy catheter with no inflammation at the site Lungs are clear Heart regular rhythm with a 1/6 systolic ejection murmur Extremities no cyanosis, clubbing or edema Results Last 24 Hours of Lab Results: Laboratory Tests 03/25 626 Hematology CBC w Diff NO MAN DIFF REQ WBC (4.8 - 10.8 /CUMM) 4.1 L RBC (4.20 - 5.40 /CUMM) 3.26 L Hgb (12.0 - 16.0 G/DL) 9.5 L Hct (37 - 47 %) 29.3 L MCV (81.0 - 99.0 FL) 89.8 MCH (27.0 - 31.0 PG) 29.0 RDW (11.5 - 14.5 %) 17.2 H Plt Count (130 - 400 /CUMM) 342 MPV (7.4 - 10.4 FL) 8.4 Gran % (42.2 - 75.2 %) 57.2 Lymphocytes % (20.5 - 51.1 %) 27.4 Monocytes % (1.7 - 9.3 %) 10.4 H Eosinophils % (0 - 5 %) 4.5 Basophils % (0.0 - 2.0 %) 0.5 Absolute Granulocytes (1.4 - 6.5 /CUMM) 2.4 Absolute Lymphocytes (1.2 - 3.4 /CUMM) 1.1 L Absolute Monocytes (0.10 - 0.60 /CUMM) 0.4 Absolute Eosinophils (0.0 - 0.7 /CUMM) 0.2 Absolute Basophils (0.0 - 0.2 /CUMM) 0 PUBS MCHC (33.0 - 37.0 G/DL) 32.3 L Last 24 Hours of [place] Results: Blood cultures March 22 negative Recent Imaging Studies: MRI of the thoracic spine March 24 negative for discitis or osteomyelitis Echocardiogram March 24 no obvious vegetations; no significant pericardial fluid Assessment/Plan Impression: Improved with no further fevers and with white blood cell count remaining normal on Cefazolin for recent MSSA sepsis presumed secondary to an infected Glenroy catheter, which was removed 17 days ago, with placement of a new Glenroy catheter 2 days later. Her recent left chest pain remains of unclear etiology, but appears to have resolved, with workup including an MRI of the thoracic spine, CT of the chest and echocardiogram negative for any obvious source. Her fevers also appear to have resolved without any change in her antibiotic regimen and with blood cultures remaining negative. Suggestion: 1. Continue Cefazolin 1.5 grams IV after each dialysis to complete a four-week course of treatment from removal of the catheter (until April 05)
== END 2017-03-25 14:35 | DRG 199 ==
LOC: ERH 07:15 → 1NO 11:28 → ERHI 11:28 → ENRESERV 15:16 → 1NO 16:03 → ENPENDDIS 03-25 14:24 → 1NO 03-25 14:35
PROVIDERS: Emergency Medicine; Internal Medicine; Internal Medicine Nephrology; ADMIT Internal Medicine
PROC: 5A1D60Z (ICD-10-PCS; principal; 2017-03-22)
DX: I16.0 Hypertensive urgency (principal); N18.6 End stage renal disease; E87.5 Hyperkalemia; H35.039 Hypertensive retinopathy, unspecified eye; R50.9 Fever, unspecified; R07.89 Other chest pain; E78.5 Hyperlipidemia, unspecified; J45.909 Unspecified asthma, uncomplicated; E21.3 Hyperparathyroidism, unspecified; Z68.30 Body mass index [BMI] 30.0-30.9, adult; I12.0 Hypertensive chronic kidney disease with stage 5 chronic kidney disease or end stage renal disease; Z99.2 Dependence on renal dialysis; T46.5X6A Underdosing of other antihypertensive drugs, initial encounter; F41.9 Anxiety disorder, unspecified; E66.9 Obesity, unspecified; K29.70 Gastritis, unspecified, without bleeding; D63.1 Anemia in chronic kidney disease; Z79.01 Long term (current) use of anticoagulants; Z86.73 Personal history of transient ischemic attack (TIA), and cerebral infarction without residual deficits
CPT/HCPCS: 1NP; 72146; 36415; 76775; 78582; 82436; 87040; 87086; 93005; 93010; 93306; 96374; 96375; 96376; A9540; A9558; J0690; J0885; J1170; J1200; J2405; J2501; J3370; J3490

== ENCOUNTER 2017-10-08 09:29 | Inpatient (IN) | payer OTHER ==
[~2017-10-08] VITALS: Ht 154.9 cm; Wt 68.5 kg
[~2017-10-08 09:29] MED LIST changes: +PERCOCET 5-3251 EACH PO
--- NOTE | 2017-10-08 10:15 | ED NEURO DEFICIT/STROKE ---
History of Present Illness General Chief Complaint: General Adult Stated Complaint: BILATERAL ARM NUMBNESS Source: patient Exam Limitations: no limitations Vital Signs & Intake/Output Vital Signs & Intake/Output Vital Signs Date Time Temp Pulse Resp B/P B/P Pulse O2 O2 Flow FiO2 Mean Ox Delivery Rate 10/11 1255 98.1 80 18 176/86 10/11 1247 80 176/86 10/11 1247 80 176/86 10/11 1246 80 176/86 ED Intake and Output 10/12 0000 10/11 1200 Intake Total 120 100 Output Total 2000 Balance -1880 100 Intake, IV 0 Intake, Oral 120 100 Output, 1999 Dialysate Patient 151 lb 150 lb Weight Weight Standing Scale Measurement Method Allergies Coded Allergies: Iodinated Contrast- Oral and IV Dye (Iodinated Contrast Media - Oral and) ( Intermediate, HIVES AND SWELLING 12/21/16) morphine (Intermediate, HIVES 12/21/16) Penicillins (RASH 12/21/16) hydroxyzine (PER PT UNKNOWN 12/21/16) lisinopril (ANGIODEMA 12/21/16) LEIDA Inhibitors (ANGIODEMA 12/21/16) Reconcile Medications Alprazolam (Xanax) 0.5 MG TABLET 1 TAB PO DAILY NEEDED PRN ANXIETY ( Reported) Amlodipine Besylate 10 MG TABLET 1 TAB PO DAILY BP (Reported) Apixaban (Eliquis) 5 MG TABLET 1 TAB PO BID BLOOD THINNER (Reported) Calcium (Elemental-Fr Calcarb) (Calcium Carbonate) 500 MG/5ML ORAL.SUSP 20 ML PO BID SUPPLEMENT (Reported) Epoetin Carlos (Epogen) 10,000 UNIT/ML VIAL 10,000 UNIT SC Q2W ANEMIA (Reported ) Hydralazine HCl 100 MG TABLET 1 TAB PO TID HTN (Reported) Labetalol HCl 300 MG TABLET 1 TAB PO TID HTN (Reported) Losartan (Cozaar) 100 MG TABLET 1 TAB PO DAILY HEART (Reported) Ondansetron HCl (Zofran) 4 MG TABLET 1 TAB PO Q6-8P PRN NAUSEA (Reported) Triage Note: PT BIBA FROM HOME S/P WAKING UP AT 3AM WITH A HEADACHE, AND THEN STARTED TO GET NUMBNESS/TINGLING GOING DOWN HER ARMS WITH MORE PAIN TO HER RT HAND. PT NOTED WITH SWELLING TO HANDS WELL. IS DUE FOR DIALYSIS TODAY. PT UNSURE HOW MUCH WAS TAKEN OFF OF HER WE HER DIALYSIS ON WEDNESDAY. NSR ON CM WITH RATE IN 70'S. PT DOES HAVE A HX OF HTN, AND TOOK ALL HER AM MEDS THIS MORNING. Triage Nurses Notes Reviewed? yes : No Patient currently breastfeeds: No HPI: Patient presents for evaluation of bilateral upper extremity numbness and tingling with weakness that began gradually at about 3:00 this morning. In addition she is experiencing a headache consisting of a bilateral neck and occipital pain. Patient also states that she is having an "out of body experience" but denies any associated fever or cold symptoms. No apparent trouble moving her neck. Past History Travel History Traveled to [place] past 21 day No Medical History Any Pertinent Medical History? 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 No Review of Systems Review of Systems Constitutional: Reports: no symptoms. EENTM: Reports: no symptoms. Respiratory: Reports: no symptoms. Cardiovascular: Reports: no symptoms. GI: Reports: no symptoms. Genitourinary: Reports: no symptoms. Musculoskeletal: Reports: no symptoms. Skin: Reports: no symptoms. Neurological/Psychological: Reports: see HPI. Hematologic/Endocrine: Reports: no symptoms. Immunologic/Allergic: Reports: no symptoms. All Other Systems: Reviewed and Negative Physical Exam Physical Exam General Appearance: SEE BELOW Cranial Nerves: SEE BELOW Comments: Gen.: Well-nourished, well-developed, no acute respiratory distress. Head: Normocephalic, atraumatic. Eyes: Normal inspection bilaterally Ears: Normal inspection bilaterally Nose: Normal inspection Throat/mouth : Moist mucosa Neck: Supple, full range of motion, no goiter Heart: Regular rate and rhythm, no murmurs rubs or gallops Lungs: Clear to auscultation bilaterally with normal air entry Chest: Nontender Back: Normal range of motion Abdomen: Soft, nontender, nondistended, normal bowel sounds Extremities: Normal range of motion grossly, equal radial pulses, no cyanosis clubbing or edema, evaluation of the right upper extremity reveals decreased sensation over the right anterior forearm is otherwise normal hand grasp and deep tendon reflexes. Evaluation of the left upper extremity is normal with intact sensation, deep tendon reflexes and strength. Neurologic: Cranial nerves grossly intact, speech is clear Skin: warm and dry Psychiatric: Calm, cooperative, no apparent delusions or hallucinations Core Measures CVA/TIA Diagnosis: No Sepsis Present: No Sepsis Focused Exam Completed? No Progress Differential Diagnosis: electrolyte imbalance, migraine LÓPEZ, stroke, subarachnoid Hem. Plan of Care: Orders Procedure Date/time Status Discharge Patient 10/11 UNK Active Initial ED EKG: NSR, rate (76), LIKELY PEAKED t WAVES IN v2 THROUGH v4 Prior EKG: changed Comments: 09/07/2018 12:36 D/W DR CHUA. SUGGESTS ICU AND [facility]ER[facility] DIALYSIS. 10/08/2017 1:01:30 PM patient's case discussed with Dr. 10/08/2017 2:27:36 PM patient's case discussed with Dr. Murphy who has assumed care of this patient. Departure Departure Disposition: STILL A PATIENT Condition: Stable Clinical Impression Primary Impression: Hyperkalemia Secondary Impressions: Acute electrocardiogram changes Renal failure Qualifiers: Renal failure chronicity: acute on chronic Acute renal failure type : unspecified Chronic kidney disease stage: unspecified stage Qualified Codes: N17.9 - Acute kidney failure, unspecified; N18.9 - Chronic kidney disease, unspecified Referrals: Erich Damon MD (PCP/Family) Departure Forms: Customer Survey General Discharge Information Admission Note Spoke With: Jeffrey COTA,Rocco Pike Documentation of Exam: Documentation of any treatments & extenuating circumstances including Concerns Regarding Discharge (functional status, medication knowledge or non-compliance, living conditions, etc.) that warrant an admission rather than observation: Patient has a history of noncompliance with hypertensive treatment and renal dialysis (she takes dialysis 3 times a week but has only had one dialysis treatment this week). She is now suffering hyperkalemic renal failure with acute EKG changes consistent with hyperkalemia. She is hemodynamically unstable and requires continuous cardiac monitoring, emergent treatment for hyperkalemia with IV bicarbonate, dextrose, insulin and calcium gluconate. She requires ICU level care and emergent dialysis. She cannot be treated safely as an outpatient and very likely return in worse clinical condition including cardiac arrest. In addition it is highly unlikely that she would comply with outpatient treatment given her history of noncompliance. Patient's uncontrolled hypertension will need to be treated and her medications optimized. I feel she'll require a multiple day hospitalization. Critical Care Note Critical Care Note Critical Care Time: 30-74 min
[2017-10-08 11:43] LABS: PT 12.7 SEC (9.4-12.5); PTT 36 SEC (25-37)
[2017-10-08 11:47] LABS: ABSOLUTE BASOPHIL COUNT 0 /CUMM (0.0-0.2); ABSOLUTE EOSINOPHIL COUNT 0.3 /CUMM (0.0-0.7); ABSOLUTE GRANULOCYTE CT 8.1 /CUMM (1.4-6.5); ABSOLUTE LYMPH COUNT 0.8 /CUMM (1.2-3.4); ABSOLUTE MONOCYTE COUNT 0.3 /CUMM (0.10-0.60); BASOPHIL % 0 % (0.0-2.0); EOSINOPHIL % 2.9 % (0-5); HEMATOCRIT 32.9 % (37-47); MEAN CORPUSCULAR HGB 30.2 PG (27.0-31.0); MEAN CORPUSCULAR HGB CONC 32.8 G/DL (33.0-37.0); MEAN CORPUSCULAR VOLUME 92.1 FL (81.0-99.0); MEAN PLATELET VOLUME 8.5 FL (7.4-10.4); PLATELET COUNT 212 /CUMM (130-400); RBC DISTRIBUTION WIDTH 17.4 % (11.5-14.5); RED BLOOD CELL CT 3.57 /CUMM (4.20-5.40); WHITE BLOOD CELL COUNT 9.4 /CUMM (4.8-10.8)
[2017-10-08 12:10] LABS: GRANULOCYTE % 85.3 % (42.2-75.2)
--- NOTE | 2017-10-08 13:51 | CT SCAN REPORT ---
EXAMINATION: CT HEAD WITHOUT CONTRAST CT CERVICAL SPINE WITHOUT CONTRAST CLINICAL INFORMATION: Neck pain. Occipital headache. History of CVA. COMPARISON: CT of the head done on 07/14/2017 and 03/03/2017. TECHNIQUE: Noncontrast CT scan of the head and cervical spine, using standard protocol. Multiplanar reconstructed images are obtained. Multiplanar reconstructed images are also obtained. FINDINGS: CT OF THE HEAD: Previously documented, clinically known focal encephalomalacia involving the left occipital lobe and right basal ganglia appears stable since 03/03/2017, consistent with old infarctions. Subtle focal hypodensity without mass effect is also noted within the left basal ganglia, unchanged since 03/03/2017, may also represent an old lacunar infarction. The remainder of the brain parenchyma otherwise appears unremarkable, unchanged. The right lateral ventricle asymmetrically appears prominent, unchanged since prior study dated 03/03/2017. Specifically, no evidence of intra-axial mass, mass effect, extra-axial fluid collection, midline shift, acute intraparenchymal hemorrhage and/or acute infarction present. Both orbital globes, extraocular muscles, optic nerves appear bilaterally symmetric and are unremarkable. The bilateral mastoid air cells appear unremarkable except for the presence of a 2 cm soft tissue opacity within the included part of the left maxillary sinus, most consistent with a mucous retention cyst and/or polyp, was not included within the field of view on most recent prior study dated 07/14/2017. CT OF THE CERVICAL SPINE: The height, alignment of the cervical vertebrae is well maintained. The posterior appendages are intact. Intervertebral disc height is well maintained. The prespinal soft tissues are unremarkable. Both lung apices are clear. IMPRESSION: 1. No acute intracranial pathology. Stable appearance of the brain parenchyma, unchanged since 07/14/2017. Incidental note is however made of a 2 cm possible mucous retention cyst versus polyp within the left maxillary sinus. 2. No CT evidence of any acute fracture no subluxation or dislocation or prespinal soft tissue hematoma present at the cervical spine.
--- NOTE | 2017-10-08 14:50 | History & Physical ---
"Marce Alfonso 10/08/17 1420: General Information and HPI MD Statement: I have seen and personally examined GISSELLTERI WASHBURN and documented this H& P. The patient is a 32 year old F who presented with a patient stated chief complaint of [arm numbness]. Source of Information: patient Exam Limitations: no limitations History of Present Illness: This is a 32-year-old lady with past medical history history significant for ESRD on HD Wednesday/Wednesday/Wednesday([facility]), resistant HTN with multiple hospitalizations for hypertensive urgency with previous ischemic and hemorrhagic strokes (right basal ganglia lacunar infarct /2012 and left basal ganglia lacunar infarct left [employer] stroke /March 2015) with no residual weakness, legally blind on the left side, MRSA sepsis attributed to an infected Port-A- Cath in September 2014, sepsis physiology of right IJ catheter which was removed on 03/08/2017, left IJ thrombosis on who presented to the hospital with a chief complaint of bilateral arm numbness and tingling that started about 3 AM this morning. Patient reported she woke up from sleep at 3 AM with intense discomfort, numbness, tingling and tightness in her bilateral hands. She also had a bad headache which prevented her from falling back to sleep. She felt fatigued, drowsy, unable to carry on a daily activities. Denied any chest pain, palpitations, nausea, fever, chills however had some shortness of breath on exertion. She gets dialysis on Wednesday and Wednesday/Wednesday/Wednesday at [facility]. Her last dialysis was on Wednesday. She missed her dialysis on Wednesday as her daughter was sick and she had nobody to take care of her at home. Patient has a port on the left chest wall which is being used for dialysis. She also has a fistula on her right arm that was created in August, however hasn't been used so far. Her dry weight is about 150 pounds. In the ED vitals were temperature 98.2, pulse 72, respiration 20, blood pressure 182/97, saturating 96% on room air Labs showed a H&H of 10.8/32.9, sodium 135, potassium 7.5, bicarbonate 18, anion gap 22, creatinine 14. EKG showed normal sinus rhythm with a rate of 76 bpm with peaked T waves V2 through V4, [facility] VA 204. CT head was negative for acute pathology, incidental finding of a 2 cm mucous retention cyst/polyp in the left maxillary sinus. No fracture or dislocation/ hematoma in the cervical spine. Patient received insulin, dextrose, calcium gluconate in the ED. 1 g nitroglycerin for headache Allergies/Medications Allergies: Coded Allergies: Iodinated Contrast- Oral and IV Dye (Iodinated Contrast Media - Oral and) ( Intermediate, HIVES AND SWELLING 12/21/16) morphine (Intermediate, HIVES 12/21/16) Penicillins (RASH 12/21/16) hydroxyzine (PER PT UNKNOWN 12/21/16) lisinopril (ANGIODEMA 12/21/16) LEIDA Inhibitors (ANGIODEMA 12/21/16) Home Med list Alprazolam (Xanax) 0.5 MG TABLET 1 TAB PO DAILY NEEDED PRN ANXIETY ( Reported) Amlodipine Besylate 10 MG TABLET 1 TAB PO DAILY BP (Reported) Apixaban (Eliquis) 5 MG TABLET 1 TAB PO BID BLOOD THINNER (Reported) Calcium (Elemental-Fr Calcarb) (Calcium Carbonate) 500 MG/5ML ORAL.SUSP 20 ML PO BID SUPPLEMENT (Reported) Epoetin Carlos (Epogen) 10,000 UNIT/ML VIAL 10,000 UNIT SC Q2W ANEMIA (Reported ) Hydralazine HCl 100 MG TABLET 1 TAB PO TID HTN (Reported) Labetalol HCl 300 MG TABLET 1 TAB PO TID HTN (Reported) Losartan (Cozaar) 100 MG TABLET 1 TAB PO DAILY HEART (Reported) Ondansetron HCl (Zofran) 4 MG TABLET 1 TAB PO Q6-8P PRN NAUSEA (Reported) Past History Travel History Traveled to [place] past 21 day No Medical History Neurological: CVA (multiple ischemic/hemoorhagic), migraine, right basal ganglia lacunar infarct (2012) left basal ganglia lacunar infarct left [employer] stroke (March 2015) EENT: hypertensive retinopathy Cardiovascular: hypertension, hyperlipidemia, mitral regurgitation, LVH Respiratory: asthma, pneumonia Gastrointestinal: lower GI bleed (November 2016), duodenitis gastritis Hepatic: NONE Renal: ESRD on HD (previously on PD) Musculoskeletal: chronic back pain, sciatica Psychiatric: anxiety Endocrine: hyperparathyroidism (secondary), obesity, LUE DVT Blood Disorders: anemia of CKD left IJ thrombosis after dialysis cathether placement Cancer(s): NONE 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) MRSA peritonitis drug fever attributed to vancomycin History of MRSA: Yes History of VRE: No History of CDIFF: No Surgical History Surgical History: , hernia repair-inguinal, parathyroidectomy Past Family/Social History Family History Relations & Conditions if any FATHER FH: CAD (coronary artery disease) FH: HTN (hypertension) FH: stroke grandmother FH: colon cancer SISTER ASD (atrial septal defect) MOTHER FH: diabetes mellitus FH: HTN (hypertension) Psychosocial History Who Do You Live With? child, parent Services at Home: None Primary Language: Turkish Living Will? yes Functional Ability ADLs Independent: dressing, eating, toileting, bathing. Ambulation: independent IADLs Independent: shopping, housework, finances, food prep, telephone, transportation , medication admin. Review of Systems Review of Systems Constitutional: Reports: malaise, weakness. EENTM: Reports: no symptoms. Cardiovascular: Reports: no symptoms. Respiratory: Reports: short of breath. GI: Reports: no symptoms. Genitourinary: Reports: no symptoms. Musculoskeletal: Reports: joint pain, joint swelling. Skin: Reports: no symptoms. Neurological/Psychological: Reports: anxiety, numbness, tingling. Exam & Diagnostic Data Last 24 Hrs of Vital Signs/I&O Vital Signs Date Time Temp Pulse Resp B/P B/P Pulse O2 O2 Flow FiO2 Mean Ox Delivery Rate 10/08 1312 98.6 74 18 200/100 99 Room Air 10/08 1130 180/87 10/08 0935 98.2 72 20 182/97 96 Physical Exam General Appearance Alert, Oriented X3, Cooperative, Mild Distress Skin No Rashes, No Breakdown, No Significant Lesion, left chest wall catheter with no signs of infection.AV fistula on right arm. Bruit |+ Skin Temp/Moisture Exam: Warm/Dry Sepsis Skin Exam (color): Normal for Ethnicity HEENT Atraumatic, PERRLA, EOMI Neck Supple, No JVD Cardiovascular Regular Rate, Normal S1, Normal S2, systolic murmur Lungs Clear to Auscultation, diminished breath sounds Abdomen Normal Bowel Sounds, Soft, No Tenderness Neurological Normal Gait, Normal Speech Extremities Normal Pulses, trace bilateral edema Assessment/Plan Assessment: This is a 32-year-old lady with past medical history history significant for ESRD on HD Wednesday/Wednesday/Wednesday([facility], [place]), resistant HTN with multiple hospitalizations for hypertensive urgency with previous ischemic and hemorrhagic strokes (right basal ganglia lacunar infarct /2012 and left basal ganglia lacunar infarct left [employer] stroke /March 2015) with no residual weakness, legally blind on the left side, MRSA sepsis attributed to an infected Port-A- Cath in September 2014, sepsis physiology of right IJ catheter which was removed on 03/08/2017, left IJ thrombosis on Eliquis who presented to the hospital with a chief complaint of bilateral arm numbness and tingling that started about 3 AM this morning. In the ED vitals were temperature 98.2, pulse 72, respiration 20, blood pressure 182/97, saturating 96% on room air Labs showed a H&H of 10.8/32.9, sodium 135, potassium 7.5, bicarbonate 18, anion gap 22, creatinine 14. EKG showed normal sinus rhythm with a rate of 76 bpm with peaked T waves V2 through V4, LVH VA 204. CT head was negative for acute pathology, incidental finding of a 2 cm mucous retention cyst/polyp in the left maxillary sinus. No fracture or dislocation/ hematoma in the cervical spine. Patient received insulin, dextrose, calcium gluconate in the ED. 1 g nitroglycerin for headache Assessment: #1 Hyperkalemia with EKG changes #2 End-stage renal disease on hemodialysis #3 Hypertension #4 Left IJ thrombus on Eliquis #5 Headaches #6 anemia of renal disease Plan -ICU admission -Vitals per protocol -Patient received calcium gluconate, insulin, dextrose in the ED. Emergent hemodialysis today.Will require a 4 hour treatment. -Closely monitor potassium. Close telemetry monitoring -Strict I's and O's and daily weight checks -Continue Epogen for anemia -Continue Zofran as needed for nausea -Continue IV Tylenol for headaches. Avoid narcotics. -Continue labetalol, hydralazine, amlodipine for hypertension -Nephrology consult appreciated -CRCU consult with Dr. Murphy -Renal dialysis diet with 2 g potassium restriction. -Full code -Mild pain pathway As Ranked By This Provider Problem List: 1. ESRD (end stage renal disease) on dialysis 2. Headache 3. Hyperkalemia Core Measures/Misc (06/13) Acute Coronary Syndrome ACS Diagnosis: No Congestive Heart Failure Congestive Heart Failure Diagnosis No Cerebrovascular Accident CVA/TIA Diagnosis: No VTE (View Protocol) VTE Risk Factors Obesity No Mechanical VTE Prophylaxis d/t N/A MechProphylax Ordered No VTE Pharm Prophylaxis d/t NA PharmProphylax ordered (Eliquis) Sepsis (View protocol) Sepsis Present: No Rocco Murphy MD 10/08/17 1718: Attending Review Statement Attending Statement Attending MD Statement: examined this patient, discuss w/resident/PA/MAGAZINE DESIGNER, agreed w/resident/PA/MAGAZINE DESIGNER, discussed with family, reviewed EMR data (avail), discussed with nursing, discussed with case mgmt, reviewed images, amended to note Attending Assessment/Plan: Seen and examined in the ed This 32-year-old woman has been on dialysis since 2011. She initially had been started on hemodialysis when she started dialysis. Eventually she selected peritoneal dialysis as her renal replacement therapy of choice. Her course on dialysis via peritoneal dialysis has been punctuated by numerous admissions to [facility] as well as other facilities with accelerated hypertension and fluid overload. Eventually, she was transitioned from peritoneal dialysis to hemodialysis. She missed on Wednesday because of her daughter being ill. The patient is self has not been ill. She presented to the emergency room this morning complaining of numbness and weakness with shortness of breath and tightness in her chest. On routine blood work, her potassium was found to be 7.5. IN the ed she complained of numbness of hand and her neuro exam was unremarkable HEad ct neg General Appearance: well developed/nourished, no apparent distress, awake, anxious Head: atraumatic, normal appearance Eyes: Bilateral: EOMI, pale conjunctivae. Ears, Nose, Throat: normal ENT inspection, hearing grossly normal Neck: normal inspection, supple, full range of motion Respiratory: normal breath sounds, chest non-tender, lungs clear Cardiovascular: edema Gastrointestinal: normal bowel sounds, soft, non-tender Back: normal inspection, normal range of motion, no vertebral tenderness Extremities: normal inspection, normal capillary refill, normal range of motion, no edema, TONE AVG, good bruit and thrill Neurologic/Psych: no motor/sensory deficits, awake, alert, oriented x 3 Cranial Nerves: normal hearing, normal speech, PERRL Skin: intact, normal color ISSUES Hyperkalemia in a lady with ESRD due to noncompliance, ekg abnormality now s/p calcium and bicarb for dialysis HTN sig And needs her meds Previous cvz Noncompliance Previous IJ thrombus on anticoag Anemia of renal disease PLAN Urgent dialysis cont all BP meds HOld eloquis if her bp is more than 180 for now Other rx as noted NEphro onboard and their help Appretiated PT is critically ill tts 38mins"
--- NOTE | 2017-10-08 15:05 | Cons- Nephrology ---
General Information and HPI Consulting Request Date of Consult: 10/08/17 Requested By: Jeffrey COTA,Rocco Pike Reason for Consult: Hyperkalemia Source of Information: patient Exam Limitations: no limitations History of Present Illness: This 32-year-old woman has been on dialysis since 2011. She initially had been started on hemodialysis when she started dialysis. Eventually she selected peritoneal dialysis as her renal replacement therapy of choice. Her course on dialysis via peritoneal dialysis has been punctuated by numerous admissions to [facility] as well as other facilities with accelerated hypertension and fluid overload. Eventually, she was transitioned from peritoneal dialysis to hemodialysis. She tells me she has not been in the hospital since being here in February. Given at one point that her hospitalizations seem to be every 4-6 weeks in occurrence, this is an improvement. She missed on Wednesday because of her daughter being ill. The patient is self has not been ill. She presented to the emergency room this morning complaining of numbness and weakness with shortness of breath and tightness in her chest. On routine blood work, her potassium was found to be 7.5. Allergies/Medications Allergies: Coded Allergies: Iodinated Contrast- Oral and IV Dye (Iodinated Contrast Media - Oral and) ( Intermediate, HIVES AND SWELLING 12/21/16) morphine (Intermediate, HIVES 12/21/16) Penicillins (RASH 12/21/16) hydroxyzine (PER PT UNKNOWN 12/21/16) lisinopril (ANGIODEMA 12/21/16) LEIDA Inhibitors (ANGIODEMA 12/21/16) Home Med List: Alprazolam (Xanax) 0.5 MG TABLET 1 TAB PO DAILY NEEDED PRN ANXIETY ( Reported) Amlodipine Besylate 10 MG TABLET 1 TAB PO DAILY BP (Reported) Apixaban (Eliquis) 5 MG TABLET 1 TAB PO BID BLOOD THINNER (Reported) Calcium (Elemental-Fr Calcarb) (Calcium Carbonate) 500 MG/5ML ORAL.SUSP 20 ML PO BID SUPPLEMENT (Reported) Epoetin Carlos (Epogen) 10,000 UNIT/ML VIAL 10,000 UNIT SC Q2W ANEMIA (Reported ) Hydralazine HCl 100 MG TABLET 1 TAB PO TID HTN (Reported) Labetalol HCl 300 MG TABLET 1 TAB PO TID HTN (Reported) Losartan (Cozaar) 100 MG TABLET 1 TAB PO DAILY HEART (Reported) Ondansetron HCl (Zofran) 4 MG TABLET 1 TAB PO Q6-8P PRN NAUSEA (Reported) Current Medications: Current Medications Sig/Bryan Start time Last Medication Dose Route Stop Time Status Admin Alprazolam 0.5 MG DAILY NEEDED PRN 10/08 1415 UNVr PO 10/15 1414 Amlodipine Besylate 10 MG DAILY 10/09 1000 UNVr PO Apixaban 5 MG BID 10/08 1410 UNVr PO Calcium Gluconate 0 .STK-MED ONE 10/08 1248 DC IV Calcium Gluconate 1 GM ONCE ONE 10/08 1230 DC 10/08 Sodium Chloride 100 ML IV 10/08 1329 1312 Dextrose 25 GM ONCE ONE 10/08 1445 UNVr 10/08 IV 10/08 1446 1435 Dextrose 25 GM ONCE ONE 10/08 1230 DC 10/08 IV 10/08 1231 1312 Heparin Sodium 5,000 UNIT Q8 10/08 1400 CAN (Porcine) SC Hydralazine HCl 100 MG TID 10/08 1600 UNVr PO Insulin Human Regular 10 UNITS ONCE ONE 10/08 1230 DC 10/08 IV 10/08 1231 1312 Labetalol HCl 300 MG TID 10/08 1600 UNVr PO Nitroglycerin 0 .STK-MED ONE 10/08 1248 DC TOP Nitroglycerin 1 GM ONCE ONE 10/08 1245 DC 10/08 TOP 10/08 1246 1312 Ondansetron HCl 4 MG Q6P PRN 10/08 1415 AC PO Sodium Bicarbonate 50 MEQ ONCE ONE 10/08 1230 DC 10/08 IV 10/08 1231 1312 Review of Systems Review of Systems Constitutional: Denies: chills, diaphoresis, fever. EENTM: Reports: no symptoms. Cardiovascular: Reports: chest pain, edema. Respiratory: Reports: orthopnea. GI: Reports: no symptoms, abdominal pain. Denies: bloating, constipation. Genitourinary: Denies: discharge, dysuria, frequency. Musculoskeletal: Denies: back pain, gout, joint pain, joint swelling. Skin: Reports: no symptoms. Neurological/Psychological: Reports: headache, numbness, paresthesia. Hematologic/Endocrine: Reports: no symptoms. 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 child, parent Services at Home: None Primary Language: Turkish Living Will? yes Functional Ability ADLs Independent: dressing, eating, toileting, bathing. Ambulation: independent IADLs Independent: shopping, housework, finances, food prep, telephone, transportation , medication admin. Exam & Diagnostic Data Vital Signs and I&O Vital Signs Date Time Temp Pulse Resp B/P B/P Pulse O2 O2 Flow FiO2 Mean Ox Delivery Rate 10/08 1312 98.6 74 18 200/100 99 Room Air 10/08 1130 180/87 10/08 0935 98.2 72 20 182/97 96 Physical Exam General Appearance: well developed/nourished, no apparent distress, awake, anxious Head: atraumatic, normal appearance Eyes: Bilateral: EOMI, pale conjunctivae. Ears, Nose, Throat: normal ENT inspection, hearing grossly normal Neck: normal inspection, supple, full range of motion Respiratory: normal breath sounds, chest non-tender, lungs clear Cardiovascular: edema Gastrointestinal: normal bowel sounds, soft, non-tender Back: normal inspection, normal range of motion, no vertebral tenderness Extremities: normal inspection, normal capillary refill, normal range of motion, no edema, TONE AVG, good bruit and thrill Neurologic/Psych: no motor/sensory deficits, awake, alert, oriented x 3 Cranial Nerves: normal hearing, normal speech, PERRL Skin: intact, normal color Results Pertinent Lab Results: Laboratory Tests 10/08 10/08 1120 1057 Chemistry Sodium (137 - 145 mmol/L) 135 L Potassium (3.5 - 5.1 mmol/L) 7.5 *H Chloride (98 - 107 mmol/L) 95 L Carbon Dioxide (22 - 30 mmol/L) 18 L Anion Gap (5 - 16) 22 H BUN (7 - 17 mg/dL) 73 H Creatinine (0.5 - 1.0 mg/dL) 14.0 *H Estimated GFR (>60 ml/min) 3 L BUN/Creatinine Ratio (7 - 25 %) 5.2 L Glucose (65 - 99 mg/dL) 94 Calcium (8.4 - 10.2 mg/dL) 7.8 L Phosphorus (2.5 - 4.5 mg/dL) 9.7 H Magnesium (1.6 - 2.3 mg/dL) 2.4 H Total Bilirubin (0.2 - 1.3 mg/dL) 0.7 AST (14 - 36 U/L) 16 ALT (9 - 52 U/L) 30 Alkaline Phosphatase (<127 U/L) 88 Total Protein (6.3 - 8.2 g/dL) 6.7 Albumin (3.5 - 5.0 g/dL) 4.2 Globulin (1.9 - 4.2 gm/dL) 2.5 Albumin/Globulin Ratio (1.1 - 2.2 %) 1.7 Total Beta HCG (NEGATIVE) NEGATIVE Cancelled Coagulation PT (9.4 - 12.5 SEC) 12.7 H INR (0.90 - 1.19) 1.21 H APTT (25 - 37 SEC) 36 Hematology CBC w Diff NO MAN DIFF REQ WBC (4.8 - 10.8 /CUMM) 9.4 RBC (4.20 - 5.40 /CUMM) 3.57 L Hgb (12.0 - 16.0 G/DL) 10.8 L Hct (37 - 47 %) 32.9 L MCV (81.0 - 99.0 FL) 92.1 MCH (27.0 - 31.0 PG) 30.2 RDW (11.5 - 14.5 %) 17.4 H Plt Count (130 - 400 /CUMM) 212 MPV (7.4 - 10.4 FL) 8.5 Gran % (42.2 - 75.2 %) 85.3 H Lymphocytes % (20.5 - 51.1 %) 9.0 L Monocytes % (1.7 - 9.3 %) 2.8 Eosinophils % (0 - 5 %) 2.9 Basophils % (0.0 - 2.0 %) 0 Absolute Granulocytes (1.4 - 6.5 /CUMM) 8.1 H Absolute Lymphocytes (1.2 - 3.4 /CUMM) 0.8 L Absolute Monocytes (0.10 - 0.60 /CUMM) 0.3 Absolute Eosinophils (0.0 - 0.7 /CUMM) 0.3 Absolute Basophils (0.0 - 0.2 /CUMM) 0 PUBS MCHC (33.0 - 37.0 G/DL) 32.8 L Serology Hep Bs Antigen (NONREACTIVE) Pending Hep Bs Antibody (NONREACTIVE) Pending Imaging/Other Studies: PATIENT: TERI BORRERO PRESENT AGE: 32 PATIENT ACCOUNT NO: [id number] : 87 LOCATION: [facility] ORDERING PHYSICIAN: Deny Darling MD SERVICE DATE: 10/08/17 EXAM TYPE: CAT - CT CERV SPINE WO IV CONTRAST; CT HEAD WO IV CONTRAST EXAMINATION: CT HEAD WITHOUT CONTRAST CT CERVICAL SPINE WITHOUT CONTRAST CLINICAL INFORMATION: Neck pain. Occipital headache. History of CVA. COMPARISON: CT of the head done on 07/14/2017 and 03/03/2017. TECHNIQUE: Noncontrast CT scan of the head and cervical spine, using standard protocol. Multiplanar reconstructed images are obtained. Multiplanar reconstructed images are also obtained. FINDINGS: CT OF THE HEAD: Previously documented, clinically known focal encephalomalacia involving the left occipital lobe and right basal ganglia appears stable since 03/03/2017, consistent with old infarctions. Subtle focal hypodensity without mass effect is also noted within the left basal ganglia, unchanged since 03/03/2017, may also represent an old lacunar infarction. The remainder of the brain parenchyma otherwise appears unremarkable, unchanged. The right lateral ventricle asymmetrically appears prominent, unchanged since prior study dated 03/03/2017. Specifically, no evidence of intra-axial mass, mass effect, extra-axial fluid collection, midline shift, acute intraparenchymal hemorrhage and/or acute infarction present. Both orbital globes, extraocular muscles, optic nerves appear bilaterally symmetric and are unremarkable. The bilateral mastoid air cells appear unremarkable except for the presence of a 2 cm soft tissue opacity within the included part of the left maxillary sinus, most consistent with a mucous retention cyst and/or polyp, was not included within the field of view on most recent prior study dated 07/14/2017. CT OF THE CERVICAL SPINE: The height, alignment of the cervical vertebrae is well maintained. The posterior appendages are intact. Intervertebral disc height is well maintained. The prespinal soft tissues are unremarkable. Both lung apices are clear. IMPRESSION: 1. No acute intracranial pathology. Stable appearance of the brain parenchyma, unchanged since 07/14/2017. Incidental note is however made of a 2 cm possible mucous retention cyst versus polyp within the left maxillary sinus. 2. No CT evidence of any acute fracture no subluxation or dislocation or prespinal soft tissue hematoma present at the cervical spine. DICTATED BY: Anay Finley MD DATE/TIME DICTATED:10/08/171254 MOLD LOFT WORKER:KANDICE DATE/TIME TRANSCRIBED:10/08/171254 CONFIDENTIAL, DO NOT COPY WITHOUT APPROPRIATE AUTHORIZATION. <Electronically signed in Other Vendor System> SIGNED BY: Anay Finley MD 10/08/17 1359 PATIENT: TERI BORRERO PRESENT AGE: 32 PATIENT ACCOUNT NO: [id number] : 87 LOCATION: [facility] ORDERING PHYSICIAN: Deny Darling MD SERVICE DATE: 10/08/17 EXAM TYPE: CAT - CT CERV SPINE WO IV CONTRAST; CT HEAD WO IV CONTRAST EXAMINATION: CT HEAD WITHOUT CONTRAST CT CERVICAL SPINE WITHOUT CONTRAST CLINICAL INFORMATION: Neck pain. Occipital headache. History of CVA. COMPARISON: CT of the head done on 07/14/2017 and 03/03/2017. TECHNIQUE: Noncontrast CT scan of the head and cervical spine, using standard protocol. Multiplanar reconstructed images are obtained. Multiplanar reconstructed images are also obtained. FINDINGS: CT OF THE HEAD: Previously documented, clinically known focal encephalomalacia involving the left occipital lobe and right basal ganglia appears stable since 03/03/2017, consistent with old infarctions. Subtle focal hypodensity without mass effect is also noted within the left basal ganglia, unchanged since 03/03/2017, may also represent an old lacunar infarction. The remainder of the brain parenchyma otherwise appears unremarkable, unchanged. The right lateral ventricle asymmetrically appears prominent, unchanged since prior study dated 03/03/2017. Specifically, no evidence of intra-axial mass, mass effect, extra-axial fluid collection, midline shift, acute intraparenchymal hemorrhage and/or acute infarction present. Both orbital globes, extraocular muscles, optic nerves appear bilaterally symmetric and are unremarkable. The bilateral mastoid air cells appear unremarkable except for the presence of a 2 cm soft tissue opacity within the included part of the left maxillary sinus, most consistent with a mucous retention cyst and/or polyp, was not included within the field of view on most recent prior study dated 07/14/2017. CT OF THE CERVICAL SPINE: The height, alignment of the cervical vertebrae is well maintained. The posterior appendages are intact. Intervertebral disc height is well maintained. The prespinal soft tissues are unremarkable. Both lung apices are clear. IMPRESSION: 1. No acute intracranial pathology. Stable appearance of the brain parenchyma, unchanged since 07/14/2017. Incidental note is however made of a 2 cm possible mucous retention cyst versus polyp within the left maxillary sinus. 2. No CT evidence of any acute fracture no subluxation or dislocation or prespinal soft tissue hematoma present at the cervical spine. DICTATED BY: Anay Finley MD DATE/TIME DICTATED:10/08/171254 MOLD LOFT WORKER:KANDICE DATE/TIME TRANSCRIBED:10/08/171254 CONFIDENTIAL, DO NOT COPY WITHOUT APPROPRIATE AUTHORIZATION. <Electronically signed in Other Vendor System> SIGNED BY: Anay Finley MD 10/08/17 2345 Assessment/Plan Assessment/Recommendations Assessment: 1. Hyperkalemia in a 32-year-old dialysis patient. Undoubtedly related to having missed dialysis. She admits to missing on Wednesday secondary to her daughter being ill. She tells me that there were no seats available yesterday. The dialysis unit tells me that attempts are made to contact the patient without success. In addition, the dialysis center has forwarded records from the past several treatments. Patient was last dialyzed on October 04. Prior to that, it was on September 29. This would suggest that she missed dialysis on October 01. She was dialyzed on September 26. Prior to that, it would seem she missed dialysis on September 24, having been dialyzed on September 22. It would seem that Wednesday afternoons seem to be missed on a regular basis. She was dialyzed on September 17, a Wednesday but missed on September 03. This behavior as seen with this patient mirrors her career on peritoneal dialysis. 2. Hypertension. Her home medications per the dialysis unit were as follows: 1. Amlodipine 5 mg daily. 2. Hydralazine 100 mg by mouth 3 times a day. 3. Labetalol 300 mg, by mouth twice a day. 4. Losartan 100 mg daily. 3. Status post CVA 4. History of noncompliance Recommendations: 1. Hemodialysis will be offered urgently this afternoon in the ICU. He will be 4 hours, we'll attempt to use the AVG if permitted Dr. Adams had instructed where and how the axis was to be cannulated. Dr. Adams marked the access as to where was to be cannulated. 2. We'll continue Epogen 3. We have been requested to use her right upper arm AVG this of course will hinge on her permitting our doing so.
[2017-10-08 16:30] VITALS: BP 224/120
[2017-10-08 23:59] VITALS: BP 214/110
[2017-10-09] VITALS (7 sets, daily range): BP systolic 124–198; BP diastolic 75–110
[2017-10-09 05:04] LABS: ABSOLUTE BASOPHIL COUNT 0.1 /CUMM (0.0-0.2); ABSOLUTE EOSINOPHIL COUNT 0.1 /CUMM (0.0-0.7); ABSOLUTE GRANULOCYTE CT 4.4 /CUMM (1.4-6.5); ABSOLUTE LYMPH COUNT 1.1 /CUMM (1.2-3.4); ABSOLUTE MONOCYTE COUNT 0.4 /CUMM (0.10-0.60); BASOPHIL % 0.8 % (0.0-2.0); EOSINOPHIL % 1.9 % (0-5); GRANULOCYTE % 72.4 % (42.2-75.2); HEMATOCRIT 31.7 % (37-47); MEAN CORPUSCULAR HGB CONC 32.1 G/DL (33.0-37.0); MEAN CORPUSCULAR VOLUME 93.4 FL (81.0-99.0); MEAN PLATELET VOLUME 8.4 FL (7.4-10.4); PLATELET COUNT 210 /CUMM (130-400); RBC DISTRIBUTION WIDTH 17.9 % (11.5-14.5); WHITE BLOOD CELL COUNT 6.1 /CUMM (4.8-10.8)
--- NOTE | 2017-10-09 08:23 | PN- Resident CRCU ---
Subjective HPI/CRCU Issues: Patient is seen and examined. She is hypertensive this morning, 198/110 and is given her dose of amlodipine. Patient also reports of an occipital headache and reports that when ever her pain is improved her blood pressure comes down. Patient does not report of any chest pain. dizziness, difficulty breathing,a bdominal discomfort or burning micturation. 24 Hour Events: Her vitals this morning are; BP 198/110, temp 97.6, HR 76, RR 20 Objective Vital Signs & I&O Last 8 Hrs of Vitals and I&O: see above Exam General Appearance: well developed/nourished, no apparent distress, alert, awake , comfortable Head: atraumatic, normal appearance Ears, Nose, Throat: normal pharynx Neck: normal inspection, supple Respiratory: normal breath sounds, chest non-tender Cardiovascular: regular rate/rhythm Gastrointestinal: soft, non-tender Extremities: normal inspection, normal capillary refill, no edema Current Medications: Current Medications Sig/Bryan Start time Last Medication Dose Route Stop Time Status Admin Alprazolam 0.5 MG DAILY NEEDED PRN 10/08 1415 AC 10/09 PO 10/15 1414 0110 Amlodipine Besylate 10 MG DAILY 10/09 1000 AC 10/09 PO 0827 Apixaban 5 MG BID 10/08 1410 AC 10/08 PO 1502 Calcium Gluconate 0 .STK-MED ONE 10/08 1248 DC IV Calcium Gluconate 1 GM ONCE ONE 10/08 1230 DC 10/08 Sodium Chloride 100 ML IV 10/08 1329 1312 Dextrose 25 GM ONCE ONE 10/08 1445 DC 10/08 IV 10/08 1446 1435 Dextrose 25 GM ONCE ONE 10/08 1230 DC 10/08 IV 10/08 1231 1312 Diphenhydramine HCl 25 MG ONCE ONE 10/09 0200 DC 10/09 IV 10/09 0201 0158 Epoetin Carlos 6,000 UNIT ONE ONE 10/08 1645 DC IV 10/08 1646 Heparin Sodium 5,000 UNIT Q8 10/08 1400 CAN (Porcine) SC Hydralazine HCl 100 MG Q8 10/08 2200 AC 10/09 PO 0532 Hydralazine HCl 100 MG TID 10/08 1600 DC PO Hydralazine HCl 100 MG TID 10/08 1445 DC 10/08 PO 1502 Hydromorphone HCl 1 MG ONCE ONE 10/09 0100 DC 10/09 IV 10/09 010 0104 Hydromorphone HCl 0.4 MG ONCE ONE 10/08 2200 DC 10/08 IV 10/08 220 220 Hydromorphone HCl 1 MG ONCE ONE 10/08 2014 CAN PO 10/08 2015 Hydromorphone HCl 1 MG ONCE ONE 10/08 2014 DC 10/08 IV 10/08 Hydromorphone HCl 1 MG ONCE ONE 10/08 1500 DC PO 10/08 1501 Insulin Human Regular 10 UNITS ONCE ONE 10/08 1230 DC 10/08 IV 10/08 1231 1312 Labetalol HCl 300 MG Q8 10/08 2200 AC 10/09 PO 0532 Labetalol HCl 300 MG TID 10/08 1600 DC PO Labetalol HCl 300 MG TID 10/08 1445 DC 10/08 PO 1502 Nitroglycerin 0 .STK-MED ONE 10/08 1248 DC TOP Nitroglycerin 1 GM ONCE ONE 10/08 1245 DC 10/08 TOP 10/08 1246 1312 Ondansetron HCl 4 MG ONCE ONE 10/09 0545 DC 10/09 IV 10/09 0546 0130 Ondansetron HCl 4 MG Q6P PRN 10/08 1415 AC PO Paricalcitol 4 MCG ONE ONE 10/08 1645 DC IV 10/08 1646 Sodium Bicarbonate 50 MEQ ONCE ONE 10/08 1230 DC 10/08 IV 10/08 1231 1312 Impression/Plan Impression/Problem List Impression: This is a 32-year-old lady with past medical history history significant for ESRD on HD Wednesday/Wednesday/Wednesday([facility] [place]), resistant HTN with multiple hospitalizations for hypertensive urgency with previous ischemic and hemorrhagic strokes (right basal ganglia lacunar infarct /2012 and left basal ganglia lacunar infarct 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 Problem List: 1. CRF ON HEMODIALYSIS Pain Ratin Tomorrow's Labs & Rationales: BEP/ ICU bundle Plan DVT/Prophylaxis: pharmacological Other: EKG showed normal sinus rhythm with a rate of 76 bpm with peaked T waves V2 through V4, LV[facility] [place] 204. CT head was negative for acute pathology, incidental finding of a 2 cm mucous retention cyst/polyp in the left maxillary sinus. No fracture or dislocation/ hematoma in the cervical spine. Patient received insulin, dextrose, calcium gluconate in the ED. 1 g nitroglycerin for headache Assessment: #1 Hyperkalemia with EKG changes #2 End-stage renal disease on hemodialysis #3 Hypertension #4 Left IJ thrombus on Eliquis #5 Headaches #6 anemia of renal disease Hypertension Patient is being closly monitored in ICU for her hypertensive crisis. She is on 3 blood pressure medications amlodipine, hydralazine, labetalol. Will hold off eliquis as directed by Dr. Murphy since she has an elevated BP this morning 189/90. Chronic renal failure on hemodialysis Patient received calcium gluconate, insulin, dextrose in the ED and had emergent hemodialysis. Nephrology is deannaley following. The creatinine is 7.6 this am and k 5.1 -Strict I's and O's and daily weight checks -Daily ICU bundle -Renal dialysis diet with 2 g potassium restriction. Anemia of chronic disease - Will Continue Epogen for anemia Nausea -Will continue Zofran as needed for nausea Headaches -Patient has been complaining of consistent headaches, 8-07/06, she has been given dilaudid IV intermitently. I started patient of PO dialudid but she asked for an IV dose. Will give her one time Iv 0.4 and continue on oral pill. -Full code -Mild pain pathway
--- NOTE | 2017-10-09 10:02 | PN- CRCU ---
Subjective HPI/Critical Care Issues: Patient is seen and examined. She is hypertensive this morning, 198/110 and is given her dose of amlodipine. Patient also reports of an occipital headache and reports that when ever her pain is improved her blood pressure comes down. Patient does not report of any chest pain. dizziness, difficulty breathing,a bdominal discomfort or burning micturation. 24 Hour Events: Her vitals this morning are; BP 198/110, temp 97.6, HR 76, RR 20 Objective Current Medications: Current Medications Sig/Bryan Start time Last Medication Dose Route Stop Time Status Admin Acetaminophen 650 MG Q8P PRN 10/09 0830 AC PO Alprazolam 0.5 MG DAILY NEEDED PRN 10/08 1415 AC 10/09 PO 10/15 1414 0110 Amlodipine Besylate 10 MG DAILY 10/09 1000 AC 10/09 PO 0827 Apixaban 5 MG BID 10/08 1410 AC 10/08 PO 1502 Calcium Gluconate 0 .STK-MED ONE 10/08 1248 DC IV Calcium Gluconate 1 GM ONCE ONE 10/08 1230 DC 10/08 Sodium Chloride 100 ML IV 10/08 1329 1312 Dextrose 25 GM ONCE ONE 10/08 1445 DC 10/08 IV 10/08 1446 1435 Dextrose 25 GM ONCE ONE 10/08 1230 DC 10/08 IV 10/08 1231 1312 Diphenhydramine HCl 25 MG ONCE ONE 10/09 0200 DC 10/09 IV 10/09 0201 0158 Epoetin Carlos 6,000 UNIT ONE ONE 10/08 1645 DC IV 10/08 1646 Heparin Sodium 5,000 UNIT Q8 10/08 1400 CAN (Porcine) SC Hydralazine HCl 100 MG Q8 10/08 2200 AC 10/09 PO 0919 Hydralazine HCl 100 MG TID 10/08 1600 DC PO Hydralazine HCl 100 MG TID 10/08 1445 DC 10/08 PO 1502 Hydromorphone HCl 2 MG Q6P PRN 10/09 0930 AC PO Hydromorphone HCl 0.4 MG ONCE ONE 10/09 0930 DC 10/09 IV 10/09 0931 0931 Hydromorphone HCl 1 MG ONCE ONE 10/09 0100 DC 10/09 IV 10/09 010 0104 Hydromorphone HCl 0.4 MG ONCE ONE 10/08 2199 DC 10/08 IV 10/08 2201 2201 Hydromorphone HCl 1 MG ONCE ONE 10/08 2015 CAN PO 10/08 2016 Hydromorphone HCl 1 MG ONCE ONE 10/08 2014 DC 10/08 IV 10/08 Hydromorphone HCl 1 MG ONCE ONE 10/08 1500 DC PO 10/08 1501 Insulin Human Regular 10 UNITS ONCE ONE 10/08 1230 DC 10/08 IV 10/08 1231 1312 Labetalol HCl 300 MG Q8 10/08 2200 AC 10/09 PO 0532 Labetalol HCl 300 MG TID 10/08 1600 DC PO Labetalol HCl 300 MG TID 10/08 1445 DC 10/08 PO 1502 Nitroglycerin 0 .STK-MED ONE 10/08 1248 DC TOP Nitroglycerin 1 GM ONCE ONE 10/08 1245 DC 10/08 TOP 10/08 1246 1312 Ondansetron HCl 4 MG ONCE ONE 10/09 0545 DC 10/09 IV 10/09 0546 0130 Ondansetron HCl 4 MG Q6P PRN 10/08 1415 AC PO Paricalcitol 4 MCG ONE ONE 10/08 1645 DC IV 10/08 1646 Sodium Bicarbonate 50 MEQ ONCE ONE 10/08 1230 DC 10/08 IV 10/08 1231 1312 Vital Signs & I&O Last 24 Hrs of Vitals and I&O: Vital Signs Date Time Temp Pulse Resp B/P B/P Pulse O2 O2 Flow FiO2 Mean Ox Delivery Rate 10/09 0919 70 200/102 10/09 0836 198/110 10/09 0827 73 198/110 10/09 0800 Room Air 10/09 0800 97.6 76 20 160/80 97 Room Air 10/09 0652 177/86 10/09 0532 77 207/108 10/09 0532 77 207/108 10/09 0400 180/90 10/09 0400 95 Room Air 10/09 0313 166/75 10/09 0000 95 Room Air 10/08 2359 98.3 76 25 214/110 95 Room Air 10/08 2309 76 202/98 10/08 2126 88 205/92 10/08 2000 95 Room Air 10/08 1630 94 Room Air Room Air 10/08 1630 99.2 84 20 224/120 94 Room Air Room Air 10/08 1502 74 210/110 10/08 1502 75 210/110 10/08 1439 78 18 210/110 99 Room Air 10/08 1312 98.6 74 18 200/100 99 Room Air 10/08 1130 180/87 Intake & Output 10/09 1600 10/09 0800 10/09 0000 Intake Total 360 240 Output Total 0 4000 Balance 360 -3760 Intake, Oral 360 240 Number 0 Bowel Movements Output, 4000 Dialysate Output, Urine 0 Patient 144 lb 152 lb Weight Weight Bed scale Measurement Method Laboratory Tests 10/09 10/08 10/08 0352 2300 1650 Chemistry Sodium (137 - 145 mmol/L) 141 140 Potassium (3.5 - 5.1 mmol/L) 5.2 H 4.8 7.1 *H Chloride (98 - 107 mmol/L) 99 98 Carbon Dioxide (22 - 30 mmol/L) 24 25 Anion Gap (5 - 16) 17 H 18 H BUN (7 - 17 mg/dL) 30 H 28 H Creatinine (0.5 - 1.0 mg/dL) 7.6 *H 6.8 *H Estimated GFR (>60 ml/min) 6 L 7 L BUN/Creatinine Ratio (7 - 25 %) 4.1 L Glucose (65 - 99 mg/dL) 112 H Calcium (8.4 - 10.2 mg/dL) 8.4 Phosphorus (2.5 - 4.5 mg/dL) 7.0 H Magnesium (1.6 - 2.3 mg/dL) 2.0 2.1 Total Bilirubin (0.2 - 1.3 mg/dL) 0.6 AST (14 - 36 U/L) 13 L ALT (9 - 52 U/L) 33 Albumin (3.5 - 5.0 g/dL) 3.9 Hematology CBC w Diff NO MAN DIFF REQ WBC (4.8 - 10.8 /CUMM) 6.1 RBC (4.20 - 5.40 /CUMM) 3.40 L Hgb (12.0 - 16.0 G/DL) 10.2 L Hct (37 - 47 %) 31.7 L MCV (81.0 - 99.0 FL) 93.4 MCH (27.0 - 31.0 PG) 30.0 RDW (11.5 - 14.5 %) 17.9 H Plt Count (130 - 400 /CUMM) 210 MPV (7.4 - 10.4 FL) 8.4 Gran % (42.2 - 75.2 %) 72.4 Lymphocytes % (20.5 - 51.1 %) 18.4 L Monocytes % (1.7 - 9.3 %) 6.5 Eosinophils % (0 - 5 %) 1.9 Basophils % (0.0 - 2.0 %) 0.8 Absolute Granulocytes (1.4 - 6.5 /CUMM) 4.4 Absolute Lymphocytes (1.2 - 3.4 /CUMM) 1.1 L Absolute Monocytes (0.10 - 0.60 /CUMM) 0.4 Absolute Eosinophils (0.0 - 0.7 /CUMM) 0.1 Absolute Basophils (0.0 - 0.2 /CUMM) 0.1 PUBS MCHC (33.0 - 37.0 G/DL) 32.1 L 10/08 10/08 1120 1057 Chemistry Sodium (137 - 145 mmol/L) 135 L Potassium (3.5 - 5.1 mmol/L) 7.5 *H Chloride (98 - 107 mmol/L) 95 L Carbon Dioxide (22 - 30 mmol/L) 18 L Anion Gap (5 - 16) 22 H BUN (7 - 17 mg/dL) 73 H Creatinine (0.5 - 1.0 mg/dL) 14.0 *H Estimated GFR (>60 ml/min) 3 L BUN/Creatinine Ratio (7 - 25 %) 5.2 L Glucose (65 - 99 mg/dL) 94 Calcium (8.4 - 10.2 mg/dL) 7.8 L Phosphorus (2.5 - 4.5 mg/dL) 9.7 H Magnesium (1.6 - 2.3 mg/dL) 2.4 H Total Bilirubin (0.2 - 1.3 mg/dL) 0.7 AST (14 - 36 U/L) 16 ALT (9 - 52 U/L) 30 Alkaline Phosphatase (<127 U/L) 88 Troponin I (< 0.11 ng/ml) 0.03 Total Protein (6.3 - 8.2 g/dL) 6.7 Albumin (3.5 - 5.0 g/dL) 4.2 Globulin (1.9 - 4.2 gm/dL) 2.5 Albumin/Globulin Ratio (1.1 - 2.2 %) 1.7 Total Beta HCG (NEGATIVE) NEGATIVE Cancelled Coagulation PT (9.4 - 12.5 SEC) 12.7 H INR (0.90 - 1.19) 1.21 H APTT (25 - 37 SEC) 36 Hematology CBC w Diff NO MAN DIFF REQ WBC (4.8 - 10.8 /CUMM) 9.4 RBC (4.20 - 5.40 /CUMM) 3.57 L Hgb (12.0 - 16.0 G/DL) 10.8 L Hct (37 - 47 %) 32.9 L MCV (81.0 - 99.0 FL) 92.1 MCH (27.0 - 31.0 PG) 30.2 RDW (11.5 - 14.5 %) 17.4 H Plt Count (130 - 400 /CUMM) 212 MPV (7.4 - 10.4 FL) 8.5 Gran % (42.2 - 75.2 %) 85.3 H Lymphocytes % (20.5 - 51.1 %) 9.0 L Monocytes % (1.7 - 9.3 %) 2.8 Eosinophils % (0 - 5 %) 2.9 Basophils % (0.0 - 2.0 %) 0 Absolute Granulocytes (1.4 - 6.5 /CUMM) 8.1 H Absolute Lymphocytes (1.2 - 3.4 /CUMM) 0.8 L Absolute Monocytes (0.10 - 0.60 /CUMM) 0.3 Absolute Eosinophils (0.0 - 0.7 /CUMM) 0.3 Absolute Basophils (0.0 - 0.2 /CUMM) 0 PUBS MCHC (33.0 - 37.0 G/DL) 32.8 L Serology Hep Bs Antigen (NONREACTIVE) NONREACTIVE Hep Bs Antibody (NONREACTIVE) REACTIVE Microbiology Date/Time Procedure - Status Source Growth 10/08 170 Surveillance Culture - RECD UPPER RESP Laboratory Tests 10/09 10/08 10/08 0352 2300 1650 Chemistry Sodium (137 - 145 mmol/L) 141 140 Potassium (3.5 - 5.1 mmol/L) 5.2 H 4.8 7.1 *H Chloride (98 - 107 mmol/L) 99 98 Carbon Dioxide (22 - 30 mmol/L) 24 25 Anion Gap (5 - 16) 17 H 18 H BUN (7 - 17 mg/dL) 30 H 28 H Creatinine (0.5 - 1.0 mg/dL) 7.6 *H 6.8 *H Estimated GFR (>60 ml/min) 6 L 7 L BUN/Creatinine Ratio (7 - 25 %) 4.1 L Glucose (65 - 99 mg/dL) 112 H Calcium (8.4 - 10.2 mg/dL) 8.4 Phosphorus (2.5 - 4.5 mg/dL) 7.0 H Magnesium (1.6 - 2.3 mg/dL) 2.0 2.1 Total Bilirubin (0.2 - 1.3 mg/dL) 0.6 AST (14 - 36 U/L) 13 L ALT (9 - 52 U/L) 33 Albumin (3.5 - 5.0 g/dL) 3.9 Hematology CBC w Diff NO MAN DIFF REQ WBC (4.8 - 10.8 /CUMM) 6.1 RBC (4.20 - 5.40 /CUMM) 3.40 L Hgb (12.0 - 16.0 G/DL) 10.2 L Hct (37 - 47 %) 31.7 L MCV (81.0 - 99.0 FL) 93.4 MCH (27.0 - 31.0 PG) 30.0 RDW (11.5 - 14.5 %) 17.9 H Plt Count (130 - 400 /CUMM) 210 MPV (7.4 - 10.4 FL) 8.4 Gran % (42.2 - 75.2 %) 72.4 Lymphocytes % (20.5 - 51.1 %) 18.4 L Monocytes % (1.7 - 9.3 %) 6.5 Eosinophils % (0 - 5 %) 1.9 Basophils % (0.0 - 2.0 %) 0.8 Absolute Granulocytes (1.4 - 6.5 /CUMM) 4.4 Absolute Lymphocytes (1.2 - 3.4 /CUMM) 1.1 L Absolute Monocytes (0.10 - 0.60 /CUMM) 0.4 Absolute Eosinophils (0.0 - 0.7 /CUMM) 0.1 Absolute Basophils (0.0 - 0.2 /CUMM) 0.1 PUBS MCHC (33.0 - 37.0 G/DL) 32.1 L 10/08 10/08 1120 1057 Chemistry Sodium (137 - 145 mmol/L) 135 L Potassium (3.5 - 5.1 mmol/L) 7.5 *H Chloride (98 - 107 mmol/L) 95 L Carbon Dioxide (22 - 30 mmol/L) 18 L Anion Gap (5 - 16) 22 H BUN (7 - 17 mg/dL) 73 H Creatinine (0.5 - 1.0 mg/dL) 14.0 *H Estimated GFR (>60 ml/min) 3 L BUN/Creatinine Ratio (7 - 25 %) 5.2 L Glucose (65 - 99 mg/dL) 94 Calcium (8.4 - 10.2 mg/dL) 7.8 L Phosphorus (2.5 - 4.5 mg/dL) 9.7 H Magnesium (1.6 - 2.3 mg/dL) 2.4 H Total Bilirubin (0.2 - 1.3 mg/dL) 0.7 AST (14 - 36 U/L) 16 ALT (9 - 52 U/L) 30 Alkaline Phosphatase (<127 U/L) 88 Troponin I (< 0.11 ng/ml) 0.03 Total Protein (6.3 - 8.2 g/dL) 6.7 Albumin (3.5 - 5.0 g/dL) 4.2 Globulin (1.9 - 4.2 gm/dL) 2.5 Albumin/Globulin Ratio (1.1 - 2.2 %) 1.7 Total Beta HCG (NEGATIVE) NEGATIVE Cancelled Coagulation PT (9.4 - 12.5 SEC) 12.7 H INR (0.90 - 1.19) 1.21 H APTT (25 - 37 SEC) 36 Hematology CBC w Diff NO MAN DIFF REQ WBC (4.8 - 10.8 /CUMM) 9.4 RBC (4.20 - 5.40 /CUMM) 3.57 L Hgb (12.0 - 16.0 G/DL) 10.8 L Hct (37 - 47 %) 32.9 L MCV (81.0 - 99.0 FL) 92.1 MCH (27.0 - 31.0 PG) 30.2 RDW (11.5 - 14.5 %) 17.4 H Plt Count (130 - 400 /CUMM) 212 MPV (7.4 - 10.4 FL) 8.5 Gran % (42.2 - 75.2 %) 85.3 H Lymphocytes % (20.5 - 51.1 %) 9.0 L Monocytes % (1.7 - 9.3 %) 2.8 Eosinophils % (0 - 5 %) 2.9 Basophils % (0.0 - 2.0 %) 0 Absolute Granulocytes (1.4 - 6.5 /CUMM) 8.1 H Absolute Lymphocytes (1.2 - 3.4 /CUMM) 0.8 L Absolute Monocytes (0.10 - 0.60 /CUMM) 0.3 Absolute Eosinophils (0.0 - 0.7 /CUMM) 0.3 Absolute Basophils (0.0 - 0.2 /CUMM) 0 PUBS MCHC (33.0 - 37.0 G/DL) 32.8 L Serology Hep Bs Antigen (NONREACTIVE) NONREACTIVE Hep Bs Antibody (NONREACTIVE) REACTIVE Microbiology Date/Time Procedure - Status Source Growth 10/08 1700 Surveillance Culture - RECD UPPER RESP Impression/Plan Impression/Plan Impression/Plan: General Appearance: well developed/nourished, no apparent distress, alert, awake , comfortable Head: atraumatic, normal appearance Ears, Nose, Throat: normal pharynx Neck: normal inspection, supple Respiratory: normal breath sounds, chest non-tender Cardiovascular: regular rate/rhythm Gastrointestinal: soft, non-tender Extremities: normal inspection, normal capillary refill, no edema ISSUES Hyperkalemia in a lady with ESRD due to noncompliance, ekg abnormality now s/p calcium and bicarb and dialysis, done on 10/08 HTN sig with med noncompliance Chronic pain with opiate seeking behaviour before Previousa cva Noncompliance with meds 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
--- NOTE | 2017-10-09 12:57 | PN- Nephrology ---
Assessment/Plan Assessment: 1. Hyperkalemia no urgent dialytic need today. Next dialysis will plan to be on Wednesday. 2. Hypertension. Medication adjustments noted 3. Status post CVA 4. History of noncompliance. Did not discuss this. Suggestion: 1. WIll plan on dialysis on Wednesday 2. Please make sure she is on a 2 g sodium 2 g potassium thousand cc fluid restriction per day diet Subjective Subjective: Patient feels better. Difficulties with blood pressure are noted. This is also not new. Objective Vital Signs and I&Os Vital Signs Date Time Temp Pulse Resp B/P B/P Pulse O2 O2 Flow FiO2 Mean Ox Delivery Rate 10/09 1200 97 Room Air 10/09 1200 99.0 74 25 170/98 97 Room Air 10/09 0919 70 200/102 10/09 0836 198/110 10/09 0827 73 198/110 10/09 0800 Room Air 10/09 0800 97.6 76 20 160/80 97 Room Air 10/09 0652 177/86 10/09 0532 77 207/108 10/09 0532 77 207/108 10/09 0400 180/90 10/09 0400 95 Room Air 10/09 0313 166/75 10/09 0000 95 Room Air 10/08 2359 98.3 76 25 214/110 95 Room Air 10/08 2309 76 202/98 10/08 2126 88 205/92 10/08 2000 95 Room Air 10/08 1630 94 Room Air Room Air 10/08 1630 99.2 84 20 224/120 94 Room Air Room Air 10/08 1502 74 210/110 10/08 1502 75 210/110 10/08 1439 78 18 210/110 99 Room Air 10/08 1312 98.6 74 18 200/100 99 Room Air Intake & Output 10/09 1600 10/09 0400 10/08 1600 10/08 0400 10/07 1600 10/07 0400 Intake Total 360 240 Output Total 0 4000 Balance 360 -3760 Intake, Oral 360 240 Number 0 Bowel Movements Output, 4000 Dialysate Output, Urine 0 Patient 144 lb Weight Weight Bed scale Measurement Method Physical Exam: General Appearance: well developed/nourished, no apparent distress, awake, anxious Head: atraumatic, normal appearance Eyes: Bilateral: EOMI, pale conjunctivae. Ears, Nose, Throat: normal ENT inspection, hearing grossly normal Neck: normal inspection, supple, full range of motion Respiratory: normal breath sounds, chest non-tender, lungs clear Cardiovascular: S1 and S2 are regular there is no S3 no S4 no murmurs no rubs Gastrointestinal: normal bowel sounds, soft, non-tender Back: normal inspection, normal range of motion, no vertebral tenderness Extremities: normal inspection, normal capillary refill, normal range of motion, no edema, TONE AVG, good bruit and thrill Neurologic/Psych: no motor/sensory deficits, awake, alert, oriented x 3 Skin: intact, normal color Current Medications: Current Medications Sig/Bryan Start time Last Medication Dose Route Stop Time Status Admin Acetaminophen 650 MG Q8P PRN 10/09 0930 AC PO Alprazolam 0.5 MG DAILY NEEDED PRN 10/08 1415 AC 10/09 PO 10/15 1414 0110 Amlodipine Besylate 10 MG DAILY 10/09 1000 AC 10/09 PO 0827 Apixaban 5 MG BID 10/08 1410 AC 10/08 PO 1502 Calcium Gluconate 1 GM ONCE ONE 10/08 1230 DC 10/08 Sodium Chloride 100 ML IV 10/08 1329 1312 Dextrose 25 GM ONCE ONE 10/08 1445 DC 10/08 IV 10/08 1446 1435 Diphenhydramine HCl 25 MG ONCE ONE 10/09 0200 DC 10/09 IV 10/09 0201 0158 Epoetin Carlos 6,000 UNIT ONE ONE 10/08 1645 DC IV 10/08 1646 Heparin Sodium 5,000 UNIT Q8 10/08 1400 CAN (Porcine) SC Hydralazine HCl 100 MG Q8 10/08 2200 AC 10/09 PO 0919 Hydralazine HCl 100 MG TID 10/08 1600 DC PO Hydralazine HCl 100 MG TID 10/08 1445 DC 10/08 PO 1502 Hydromorphone HCl 2 MG Q6P PRN 10/09 0930 AC PO Hydromorphone HCl 0.4 MG ONCE ONE 10/09 0930 DC 10/09 IV 10/09 0931 0931 Hydromorphone HCl 1 MG ONCE ONE 10/09 0100 DC 10/09 IV 10/09 010 0104 Hydromorphone HCl 0.4 MG ONCE ONE 10/08 2200 DC 10/08 IV 10/08 2200 2200 Hydromorphone HCl 1 MG ONCE ONE 10/08 2014 CAN PO 10/08 2016 Hydromorphone HCl 1 MG ONCE ONE 10/08 2014 DC 10/08 IV 10/08 Hydromorphone HCl 1 MG ONCE ONE 10/08 1500 DC PO 10/08 1501 Labetalol HCl 300 MG Q8 10/08 2200 AC 10/09 PO 0532 Labetalol HCl 300 MG TID 10/08 1600 DC PO Labetalol HCl 300 MG TID 10/08 1445 DC 10/08 PO 1502 Ondansetron HCl 4 MG ONCE ONE 10/09 0545 DC 10/09 IV 10/09 0546 0130 Ondansetron HCl 4 MG Q6P PRN 10/08 1415 AC PO Paricalcitol 4 MCG ONE ONE 10/08 1645 DC IV 10/08 1646 Results Pertinent Lab Results: Laboratory Tests 10/09 10/08 10/08 0352 2300 1650 Chemistry Sodium (137 - 145 mmol/L) 141 140 Potassium (3.5 - 5.1 mmol/L) 5.2 H 4.8 7.1 *H Chloride (98 - 107 mmol/L) 99 98 Carbon Dioxide (22 - 30 mmol/L) 24 25 Anion Gap (5 - 16) 17 H 18 H BUN (7 - 17 mg/dL) 30 H 28 H Creatinine (0.5 - 1.0 mg/dL) 7.6 *H 6.8 *H Estimated GFR (>60 ml/min) 6 L 7 L BUN/Creatinine Ratio (7 - 25 %) 4.1 L Glucose (65 - 99 mg/dL) 112 H Calcium (8.4 - 10.2 mg/dL) 8.4 Phosphorus (2.5 - 4.5 mg/dL) 7.0 H Magnesium (1.6 - 2.3 mg/dL) 2.0 2.1 Total Bilirubin (0.2 - 1.3 mg/dL) 0.6 AST (14 - 36 U/L) 13 L ALT (9 - 52 U/L) 33 Albumin (3.5 - 5.0 g/dL) 3.9 Hematology CBC w Diff NO MAN DIFF REQ WBC (4.8 - 10.8 /CUMM) 6.1 RBC (4.20 - 5.40 /CUMM) 3.40 L Hgb (12.0 - 16.0 G/DL) 10.2 L Hct (37 - 47 %) 31.7 L MCV (81.0 - 99.0 FL) 93.4 MCH (27.0 - 31.0 PG) 30.0 RDW (11.5 - 14.5 %) 17.9 H Plt Count (130 - 400 /CUMM) 210 MPV (7.4 - 10.4 FL) 8.4 Gran % (42.2 - 75.2 %) 72.4 Lymphocytes % (20.5 - 51.1 %) 18.4 L Monocytes % (1.7 - 9.3 %) 6.5 Eosinophils % (0 - 5 %) 1.9 Basophils % (0.0 - 2.0 %) 0.8 Absolute Granulocytes (1.4 - 6.5 /CUMM) 4.4 Absolute Lymphocytes (1.2 - 3.4 /CUMM) 1.1 L Absolute Monocytes (0.10 - 0.60 /CUMM) 0.4 Absolute Eosinophils (0.0 - 0.7 /CUMM) 0.1 Absolute Basophils (0.0 - 0.2 /CUMM) 0.1 PUBS MCHC (33.0 - 37.0 G/DL) 32.1 L 10/08 10/08 1120 1057 Chemistry Sodium (137 - 145 mmol/L) 135 L Potassium (3.5 - 5.1 mmol/L) 7.5 *H Chloride (98 - 107 mmol/L) 95 L Carbon Dioxide (22 - 30 mmol/L) 18 L Anion Gap (5 - 16) 22 H BUN (7 - 17 mg/dL) 73 H Creatinine (0.5 - 1.0 mg/dL) 14.0 *H Estimated GFR (>60 ml/min) 3 L BUN/Creatinine Ratio (7 - 25 %) 5.2 L Glucose (65 - 99 mg/dL) 94 Calcium (8.4 - 10.2 mg/dL) 7.8 L Phosphorus (2.5 - 4.5 mg/dL) 9.7 H Magnesium (1.6 - 2.3 mg/dL) 2.4 H Total Bilirubin (0.2 - 1.3 mg/dL) 0.7 AST (14 - 36 U/L) 16 ALT (9 - 52 U/L) 30 Alkaline Phosphatase (<127 U/L) 88 Troponin I (< 0.11 ng/ml) 0.03 Total Protein (6.3 - 8.2 g/dL) 6.7 Albumin (3.5 - 5.0 g/dL) 4.2 Globulin (1.9 - 4.2 gm/dL) 2.5 Albumin/Globulin Ratio (1.1 - 2.2 %) 1.7 Total Beta HCG (NEGATIVE) NEGATIVE Cancelled Coagulation PT (9.4 - 12.5 SEC) 12.7 H INR (0.90 - 1.19) 1.21 H APTT (25 - 37 SEC) 36 Hematology CBC w Diff NO MAN DIFF REQ WBC (4.8 - 10.8 /CUMM) 9.4 RBC (4.20 - 5.40 /CUMM) 3.57 L Hgb (12.0 - 16.0 G/DL) 10.8 L Hct (37 - 47 %) 32.9 L MCV (81.0 - 99.0 FL) 92.1 MCH (27.0 - 31.0 PG) 30.2 RDW (11.5 - 14.5 %) 17.4 H Plt Count (130 - 400 /CUMM) 212 MPV (7.4 - 10.4 FL) 8.5 Gran % (42.2 - 75.2 %) 85.3 H Lymphocytes % (20.5 - 51.1 %) 9.0 L Monocytes % (1.7 - 9.3 %) 2.8 Eosinophils % (0 - 5 %) 2.9 Basophils % (0.0 - 2.0 %) 0 Absolute Granulocytes (1.4 - 6.5 /CUMM) 8.1 H Absolute Lymphocytes (1.2 - 3.4 /CUMM) 0.8 L Absolute Monocytes (0.10 - 0.60 /CUMM) 0.3 Absolute Eosinophils (0.0 - 0.7 /CUMM) 0.3 Absolute Basophils (0.0 - 0.2 /CUMM) 0 PUBS MCHC (33.0 - 37.0 G/DL) 32.8 L Serology Hep Bs Antigen (NONREACTIVE) NONREACTIVE Hep Bs Antibody (NONREACTIVE) REACTIVE
[2017-10-10] VITALS: BP 150/70
[2017-10-10 05:05] LABS: ABSOLUTE BASOPHIL COUNT 0 /CUMM (0.0-0.2); ABSOLUTE EOSINOPHIL COUNT 0.3 /CUMM (0.0-0.7); ABSOLUTE GRANULOCYTE CT 2.4 /CUMM (1.4-6.5); ABSOLUTE LYMPH COUNT 1.7 /CUMM (1.2-3.4); ABSOLUTE MONOCYTE COUNT 0.5 /CUMM (0.10-0.60); EOSINOPHIL % 6.2 % (0-5); GRANULOCYTE % 48.8 % (42.2-75.2); HEMATOCRIT 31.4 % (37-47); MEAN CORPUSCULAR HGB CONC 32.1 G/DL (33.0-37.0); MEAN CORPUSCULAR VOLUME 93.5 FL (81.0-99.0); MEAN PLATELET VOLUME 8.6 FL (7.4-10.4); PLATELET COUNT 196 /CUMM (130-400); RBC DISTRIBUTION WIDTH 18.3 % (11.5-14.5); RED BLOOD CELL CT 3.36 /CUMM (4.20-5.40)
[2017-10-10 08:00] VITALS: BP 150/88
--- NOTE | 2017-10-10 08:43 | PN- Resident CRCU ---
See Addendum Subjective HPI/CRCU Issues: The patient was seen and examined. She offers no complaints. She denies any headache, nausea, vomiting, dizziness, lightheadedness, chest pain, shortness of breath, palpitation, abdominal pain, urinary symptoms. The patient is on renal dialysis diet, however there are cake and different types of candy and snacks in her room by her bed; likely not compliant with diet. Blood pressure in 150s systolic. No overnight events reported. Objective Vital Signs & I&O Last 8 Hrs of Vitals and I&O: Vital Signs Date Time Temp Pulse Resp B/P B/P Pulse O2 O2 Flow FiO2 Mean Ox Delivery Rate 10/10 0800 94 Room Air Room Air 10/10 0800 99.0 68 23 150/88 94 Room Air Room Air 10/10 0605 82 170/93 10/10 0605 71 170/93 10/10 0400 95 Room Air 10/10 0000 95 Room Air 10/10 0000 97.7 62 12 150/70 94 Room Air 10/09 2138 72 164/73 10/09 2138 78 164/73 10/09 2000 96 Room Air 10/09 1600 Room Air 10/09 1521 99.3 65 20 124/80 93 Room Air 10/09 1303 69 177/90 10/09 1200 97 Room Air 10/09 1200 99.0 74 25 170/98 97 Room Air Intake & Output 10/10 1600 10/10 0800 10/10 0000 Intake Total 100 340 Output Total 0 0 Balance 100 340 Intake, Oral 100 340 Number 0 Bowel Movements Output, Urine 0 0 Exam General Appearance: well developed/nourished, no apparent distress, alert, awake Head: atraumatic, normal appearance Ears, Nose, Throat: normal pharynx, normal ENT inspection Neck: normal inspection, supple Respiratory: normal breath sounds, chest non-tender Cardiovascular: regular rate/rhythm Gastrointestinal: normal bowel sounds, soft, non-tender Extremities: normal inspection, no edema Cranial Nerves: normal hearing, normal speech, PERRL Skin: intact Current Medications: Current Medications Sig/Bryan Start time Last Medication Dose Route Stop Time Status Admin Acetaminophen 650 MG Q8P PRN 10/09 0930 AC PO Alprazolam 0.5 MG DAILY NEEDED PRN 10/08 1415 AC 10/10 PO 10/15 1414 0605 Amlodipine Besylate 10 MG DAILY 10/09 1000 AC 10/09 PO 0827 Apixaban 5 MG BID 10/08 1410 AC 10/09 PO 2138 Hydralazine HCl 100 MG Q8 10/08 2200 AC 10/10 PO 0605 Hydromorphone HCl 2 MG Q6P PRN 10/09 0930 AC PO Labetalol HCl 300 MG Q8 10/08 2200 AC 10/10 PO 0605 Ondansetron HCl 4 MG Q6P PRN 10/08 1415 AC PO Impression/Plan Impression/Problem List Impression: This is a 32-year-old lady with past medical history history significant for ESRD on HD Wednesday/Wednesday/Wednesday([facility]), resistant HTN with multiple hospitalizations for hypertensive urgency with previous ischemic and hemorrhagic strokes (right basal ganglia lacunar infarct /2012 and left basal ganglia lacunar infarct left [employer] stroke /March 2015) with no residual weakness, legally blind on the left side, MRSA sepsis attributed to an infected Port-A- Cath in September 2014, sepsis physiology of right IJ catheter which was removed on 03/08/2017, left IJ thrombosis on Eliquis who presented to the hospital with a chief complaint of bilateral arm numbness and tingling. 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 Hyperkalemia 2. HTN (hypertension) Pain Ratin Tomorrow's Labs & Rationales: BEP and magnesium to monitor electrolytes. CBC to monitor H&H. Plan DVT/Prophylaxis: pharmacological Other: Problem list/plan: #Hypertension * Continue to monitor blood pressure; now more stable * Continue with amlodipine, hydralazine, labetalol at current dose. * Resume Eliquis #Chronic renal failure on hemodialysis * Patient received calcium gluconate, insulin, dextrose in the ED and had emergent hemodialysis. * Follow nephrology recommendations. * The creatinine is 9.9 this am and k 5.3 * Strict I's and O's and daily weight checks * Daily electrolyte checks * Renal dialysis diet with 2 g potassium restriction; advised to be more compliant with diet. #Anemia of chronic disease * Continue Epogen for anemia #Nausea * Continue Zofran as needed for nausea #Headaches * No further episode of headache reported so far. -Full code -Mild pain pathway -We will downgrade to telemetry.
[2017-10-10 16:00] VITALS: BP 150/84
[2017-10-10 23:20] VITALS: BP 164/82
[2017-10-11 06:57] LABS: ABSOLUTE BASOPHIL COUNT 0 /CUMM (0.0-0.2); ABSOLUTE EOSINOPHIL COUNT 0.4 /CUMM (0.0-0.7); ABSOLUTE GRANULOCYTE CT 3.4 /CUMM (1.4-6.5); ABSOLUTE LYMPH COUNT 1.6 /CUMM (1.2-3.4); ABSOLUTE MONOCYTE COUNT 0.4 /CUMM (0.10-0.60); BASOPHIL % 0.8 % (0.0-2.0); EOSINOPHIL % 6.8 % (0-5); GRANULOCYTE % 58.5 % (42.2-75.2); HEMATOCRIT 30.6 % (37-47); MEAN CORPUSCULAR HGB CONC 32.4 G/DL (33.0-37.0); MEAN CORPUSCULAR VOLUME 92.4 FL (81.0-99.0); MEAN PLATELET VOLUME 8.7 FL (7.4-10.4); PLATELET COUNT 199 /CUMM (130-400); RBC DISTRIBUTION WIDTH 17.2 % (11.5-14.5); RED BLOOD CELL CT 3.31 /CUMM (4.20-5.40); WHITE BLOOD CELL COUNT 5.8 /CUMM (4.8-10.8)
--- NOTE | 2017-10-11 07:27 | PN- Resident CRCU ---
Impression/Plan Plan DVT/Prophylaxis: pharmacological
--- NOTE | 2017-10-11 07:29 | PN- Resident CRCU ---
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 She is scheduled to receive dialysis today Objective Vital Signs & I&O Last 8 Hrs of Vitals and I&O: Intake & Output 10/11 1600 Intake Total Output Total Balance Patient 150 lb Weight Exam General Appearance: well developed/nourished, no apparent distress, anxious Head: atraumatic, normal appearance Ears, Nose, Throat: normal pharynx, normal ENT inspection, hearing grossly normal Neck: normal inspection, supple, full range of motion Respiratory: normal breath sounds Cardiovascular: regular rate/rhythm Gastrointestinal: normal bowel sounds, soft, non-tender Extremities: no edema Current Medications: Current Medications Sig/Bryan Start time Last Medication Dose Route Stop Time Status Admin Acetaminophen 650 MG Q8P PRN 10/09 0930 AC PO Alprazolam 0.5 MG DAILY NEEDED PRN 10/08 1415 AC 10/11 PO 10/15 1414 0730 Amlodipine Besylate 10 MG DAILY 10/09 1000 AC 10/11 PO 1247 Apixaban 5 MG BID 10/08 1410 AC 10/11 PO 1246 Hydralazine HCl 100 MG Q8 10/08 2200 AC 10/11 PO 1247 Hydromorphone HCl 2 MG Q6P PRN 10/09 0930 AC PO Labetalol HCl 300 MG Q8 10/08 2200 AC 10/11 PO 1246 Ondansetron HCl 4 MG Q6P PRN 10/08 1415 AC PO Impression/Plan Impression/Problem List Impression: 32-year-old lady with past medical history history significant for ESRD on HD Wednesday/Wednesday/Wednesday([facility]), resistant HTN with multiple hospitalizations for hypertensive urgency with previous ischemic and hemorrhagic strokes (right basal ganglia lacunar infarct /2012 and left basal ganglia lacunar infarct left [employer] stroke /March 2015) with no residual weakness, legally blind on the left side, MRSA sepsis attributed to an infected Port-A-Cath in September 2014, right IJ catheter removed on 03/08/2017, left IJ thrombosis on Eliquis who presented to the hospital with a chief complaint of bilateral arm numbness and tingling Problem list: #1 Hyperkalemia with EKG changes #2 End-stage renal disease on hemodialysis #3 Hypertension #4 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 ESRD 2. Anxiety Pain Ratin Tomorrow's Labs & Rationales: None Plan DVT/Prophylaxis: pharmacological
--- NOTE | 2017-10-11 09:11 | PN- CRCU ---
Subjective HPI/Critical Care Issues: Sleeping No new events noted for dialysis today Objective Current Medications: Current Medications Sig/Bryan Start time Last Medication Dose Route Stop Time Status Admin Acetaminophen 650 MG Q8P PRN 10/09 0930 AC PO Alprazolam 0.5 MG DAILY NEEDED PRN 10/08 1415 AC 10/11 PO 10/15 1414 0730 Amlodipine Besylate 10 MG DAILY 10/09 1000 AC 10/10 PO 1011 Apixaban 5 MG BID 10/08 141 AC 10/10 PO 2149 Hydralazine HCl 100 MG Q8 10/08 220 AC 10/11 PO 0637 Hydromorphone HCl 2 MG Q6P PRN 10/09 0930 AC PO Labetalol HCl 300 MG Q8 10/08 2199 AC 10/11 PO 0636 Ondansetron HCl 4 MG Q6P PRN 10/08 1415 AC PO Vital Signs & I&O Last 24 Hrs of Vitals and I&O: Vital Signs Date Time Temp Pulse Resp B/P B/P Pulse O2 O2 Flow FiO2 Mean Ox Delivery Rate 10/11 0637 72 150/86 10/11 0636 72 150/86 10/10 2320 98.8 72 20 164/82 94 Room Air 10/10 2148 74 164/82 10/10 2148 70 164/82 10/10 1600 95 Room Air Room Air 10/10 1600 98.8 68 20 150/84 95 Room Air Room Air 10/10 1416 99.0 81 20 164/87 10/10 1416 81 20 164/87 10/10 1011 99.0 60 20 150/77 Intake & Output 10/11 1600 10/11 0800 10/11 0000 Intake Total 100 200 Output Total Balance 100 200 Intake, Oral 100 200 Laboratory Tests 10/11 10/10 0620 0418 Chemistry Sodium (137 - 145 mmol/L) 138 136 L Potassium (3.5 - 5.1 mmol/L) 5.4 H 5.3 H Chloride (98 - 107 mmol/L) 98 97 L Carbon Dioxide (22 - 30 mmol/L) 22 23 Anion Gap (5 - 16) 19 H 17 H BUN (7 - 17 mg/dL) 50 H 42 H Creatinine (0.5 - 1.0 mg/dL) 11.4 *H 9.9 *H Estimated GFR (>60 ml/min) 4 L 5 L BUN/Creatinine Ratio (7 - 25 %) 4.4 L Glucose (65 - 99 mg/dL) 84 Calcium (8.4 - 10.2 mg/dL) 8.4 Phosphorus (2.5 - 4.5 mg/dL) 8.6 H Magnesium (1.6 - 2.3 mg/dL) 2.2 2.1 Total Bilirubin (0.2 - 1.3 mg/dL) 0.5 AST (14 - 36 U/L) 10 L ALT (9 - 52 U/L) 33 Albumin (3.5 - 5.0 g/dL) 3.5 Hematology CBC w Diff NO MAN DIFF REQ NO MAN DIFF REQ WBC (4.8 - 10.8 /CUMM) 5.8 5.0 RBC (4.20 - 5.40 /CUMM) 3.31 L 3.36 L Hgb (12.0 - 16.0 G/DL) 9.9 L 10.1 L Hct (37 - 47 %) 30.6 L 31.4 L MCV (81.0 - 99.0 FL) 92.4 93.5 MCH (27.0 - 31.0 PG) 30.0 30.0 RDW (11.5 - 14.5 %) 17.2 H 18.3 H Plt Count (130 - 400 /CUMM) 199 196 MPV (7.4 - 10.4 FL) 8.7 8.6 Gran % (42.2 - 75.2 %) 58.5 48.8 Lymphocytes % (20.5 - 51.1 %) 27.3 34.9 Monocytes % (1.7 - 9.3 %) 6.6 9.1 Eosinophils % (0 - 5 %) 6.8 H 6.2 H Basophils % (0.0 - 2.0 %) 0.8 1.0 Absolute Granulocytes (1.4 - 6.5 /CUMM) 3.4 2.4 Absolute Lymphocytes (1.2 - 3.4 /CUMM) 1.6 1.7 Absolute Monocytes (0.10 - 0.60 /CUMM) 0.4 0.5 Absolute Eosinophils (0.0 - 0.7 /CUMM) 0.4 0.3 Absolute Basophils (0.0 - 0.2 /CUMM) 0 0 PUBS MCHC (33.0 - 37.0 G/DL) 32.4 L 32.1 L Microbiology Date/Time Procedure - Status Source Growth 10/08 1700 Surveillance Culture - COMP UPPER RESP Impression/Plan Impression/Plan Impression/Plan: General Appearance: well developed/nourished, no apparent distress, alert, awake , comfortable Head: atraumatic, normal appearance Ears, Nose, Throat: normal pharynx Neck: normal inspection, supple Respiratory: normal breath sounds, chest non-tender Cardiovascular: regular rate/rhythm Gastrointestinal: soft, non-tender Extremities: normal inspection, normal capillary refill, no edema ISSUES Hyperkalemia in a lady with ESRD due to noncompliance, ekg abnormality now s/p calcium and bicarb and dialysis, done on 10/08, for dialysis today HTN sig with med noncompliance, now better Chronic pain with opiate seeking behaviour before Previousa cva Noncompliance with meds Previous IJ thrombus on anticoag Anemia of renal disease PLAN cont all BP meds, Cont anticoag NEphro onboard and their help Appretiated Cont prn pain meds, but reduce the dose Ok to the regular floor not tele after the dialysis
--- NOTE | 2017-10-11 10:30 | PN- Nephrology ---
Assessment/Plan Assessment: 1. End-stage renal disease. Hemodialysis in progress. Using her right upper arm AVG. 2. Hyperkalemia being addressed with dialysis. Next dialysis will plan to be on Wednesday. Suspect that this can be carried out at her home hemodialysis unit. 2. Hypertension. Medication adjustments noted 3. Status post CVA 4. History of noncompliance. Suggestion: 1. WIll plan on dialysis on Wednesday 2. As always, reiterate the need for adherence to a dialysis schedule as well as the proper diet. Add to this also medication compliance. 3. Her access has been used, consideration could be given to removing the [place] catheter. This would need to be discussed with interventional radiology given the fact that it was not placed year at [place] but instead in [place]. It has been the custom that the catheters were removed by those who placed them. Subjective Subjective: Patient seen with hemodialysis in progress. So far uneventful. Objective Vital Signs and I&Os Vital Signs Date Time Temp Pulse Resp B/P B/P Pulse O2 O2 Flow FiO2 Mean Ox Delivery Rate 10/11 0800 Room Air 10/11 0637 72 150/86 10/11 0636 72 150/86 10/10 2320 98.8 72 20 164/82 94 Room Air 10/10 2148 74 164/82 10/10 2148 70 164/82 10/10 1600 95 Room Air Room Air 10/10 1600 98.8 68 20 150/84 95 Room Air Room Air 10/10 1416 99.0 81 20 164/87 10/10 1416 81 20 164/87 Intake & Output 10/11 1600 10/11 0400 10/10 1600 10/10 0400 10/09 0400 Intake Total 100 200 250 340 970 240 Output Total 0 0 0 4000 Balance 100 200 250 340 970 -3760 Intake, IV 10 Intake, Oral 100 200 250 340 960 240 Number 0 0 Bowel Movements Output, 4000 Dialysate Output, Urine 0 0 0 Patient 150 lb 150 lb 144 lb Weight Weight Bed scale Bed scale Measurement Method Physical Exam: General Appearance: well developed/nourished, no apparent distress, awake, Head: atraumatic, normal appearance Neck: normal inspection, supple, full range of motion Respiratory: normal breath sounds, chest non-tender, lungs clear Cardiovascular: S1 and S2 are regular there is no S3 no S4 no murmurs no rubs Gastrointestinal: normal bowel sounds, soft, non-tender Back: normal inspection, normal range of motion, no vertebral tenderness Extremities: normal inspection, normal capillary refill, normal range of motion, no edema, TONE AVG, good bruit and thrill Neurologic/Psych: no motor/sensory deficits, awake, alert, oriented x 3 Skin: intact, normal color Current Medications: Current Medications Sig/Bryan Start time Last Medication Dose Route Stop Time Status Admin Acetaminophen 650 MG Q8P PRN 10/09 0930 AC PO Alprazolam 0.5 MG DAILY NEEDED PRN 10/08 1415 AC 10/11 PO 10/15 1414 0730 Amlodipine Besylate 10 MG DAILY 10/09 1000 AC 10/10 PO 1011 Apixaban 5 MG BID 10/08 1410 AC 10/10 PO 2149 Hydralazine HCl 100 MG Q8 10/08 2200 AC 10/11 PO 0637 Hydromorphone HCl 2 MG Q6P PRN 10/09 0930 AC PO Labetalol HCl 300 MG Q8 10/08 2200 AC 10/11 PO 0636 Ondansetron HCl 4 MG Q6P PRN 10/08 1415 AC PO Results Pertinent Lab Results: Laboratory Tests 10/11 10/10 0620 0418 Chemistry Sodium (137 - 145 mmol/L) 138 136 L Potassium (3.5 - 5.1 mmol/L) 5.4 H 5.3 H Chloride (98 - 107 mmol/L) 98 97 L Carbon Dioxide (22 - 30 mmol/L) 22 23 Anion Gap (5 - 16) 19 H 17 H BUN (7 - 17 mg/dL) 50 H 42 H Creatinine (0.5 - 1.0 mg/dL) 11.4 *H 9.9 *H Estimated GFR (>60 ml/min) 4 L 5 L BUN/Creatinine Ratio (7 - 25 %) 4.4 L Glucose (65 - 99 mg/dL) 84 Calcium (8.4 - 10.2 mg/dL) 8.4 Phosphorus (2.5 - 4.5 mg/dL) 8.6 H Magnesium (1.6 - 2.3 mg/dL) 2.2 2.1 Total Bilirubin (0.2 - 1.3 mg/dL) 0.5 AST (14 - 36 U/L) 10 L ALT (9 - 52 U/L) 33 Albumin (3.5 - 5.0 g/dL) 3.5 Hematology CBC w Diff NO MAN DIFF REQ NO MAN DIFF REQ WBC (4.8 - 10.8 /CUMM) 5.8 5.0 RBC (4.20 - 5.40 /CUMM) 3.31 L 3.36 L Hgb (12.0 - 16.0 G/DL) 9.9 L 10.1 L Hct (37 - 47 %) 30.6 L 31.4 L MCV (81.0 - 99.0 FL) 92.4 93.5 MCH (27.0 - 31.0 PG) 30.0 30.0 RDW (11.5 - 14.5 %) 17.2 H 18.3 H Plt Count (130 - 400 /CUMM) 199 196 MPV (7.4 - 10.4 FL) 8.7 8.6 Gran % (42.2 - 75.2 %) 58.5 48.8 Lymphocytes % (20.5 - 51.1 %) 27.3 34.9 Monocytes % (1.7 - 9.3 %) 6.6 9.1 Eosinophils % (0 - 5 %) 6.8 H 6.2 H Basophils % (0.0 - 2.0 %) 0.8 1.0 Absolute Granulocytes (1.4 - 6.5 /CUMM) 3.4 2.4 Absolute Lymphocytes (1.2 - 3.4 /CUMM) 1.6 1.7 Absolute Monocytes (0.10 - 0.60 /CUMM) 0.4 0.5 Absolute Eosinophils (0.0 - 0.7 /CUMM) 0.4 0.3 Absolute Basophils (0.0 - 0.2 /CUMM) 0 0 PUBS MCHC (33.0 - 37.0 G/DL) 32.4 L 32.1 L 10/09 10/08 10/08 0352 2300 1650 Chemistry Sodium (137 - 145 mmol/L) 141 140 Potassium (3.5 - 5.1 mmol/L) 5.2 H 4.8 7.1 *H Chloride (98 - 107 mmol/L) 99 98 Carbon Dioxide (22 - 30 mmol/L) 24 25 Anion Gap (5 - 16) 17 H 18 H BUN (7 - 17 mg/dL) 30 H 28 H Creatinine (0.5 - 1.0 mg/dL) 7.6 *H 6.8 *H Estimated GFR (>60 ml/min) 6 L 7 L BUN/Creatinine Ratio (7 - 25 %) 4.1 L Glucose (65 - 99 mg/dL) 112 H Calcium (8.4 - 10.2 mg/dL) 8.4 Phosphorus (2.5 - 4.5 mg/dL) 7.0 H Magnesium (1.6 - 2.3 mg/dL) 2.0 2.1 Total Bilirubin (0.2 - 1.3 mg/dL) 0.6 AST (14 - 36 U/L) 13 L ALT (9 - 52 U/L) 33 Albumin (3.5 - 5.0 g/dL) 3.9 Hematology CBC w Diff NO MAN DIFF REQ WBC (4.8 - 10.8 /CUMM) 6.1 RBC (4.20 - 5.40 /CUMM) 3.40 L Hgb (12.0 - 16.0 G/DL) 10.2 L Hct (37 - 47 %) 31.7 L MCV (81.0 - 99.0 FL) 93.4 MCH (27.0 - 31.0 PG) 30.0 RDW (11.5 - 14.5 %) 17.9 H Plt Count (130 - 400 /CUMM) 210 MPV (7.4 - 10.4 FL) 8.4 Gran % (42.2 - 75.2 %) 72.4 Lymphocytes % (20.5 - 51.1 %) 18.4 L Monocytes % (1.7 - 9.3 %) 6.5 Eosinophils % (0 - 5 %) 1.9 Basophils % (0.0 - 2.0 %) 0.8 Absolute Granulocytes (1.4 - 6.5 /CUMM) 4.4 Absolute Lymphocytes (1.2 - 3.4 /CUMM) 1.1 L Absolute Monocytes (0.10 - 0.60 /CUMM) 0.4 Absolute Eosinophils (0.0 - 0.7 /CUMM) 0.1 Absolute Basophils (0.0 - 0.2 /CUMM) 0.1 PUBS MCHC (33.0 - 37.0 G/DL) 32.1 L 10/08 10/08 1120 1057 Chemistry Sodium (137 - 145 mmol/L) 135 L Potassium (3.5 - 5.1 mmol/L) 7.5 *H Chloride (98 - 107 mmol/L) 95 L Carbon Dioxide (22 - 30 mmol/L) 18 L Anion Gap (5 - 16) 22 H BUN (7 - 17 mg/dL) 73 H Creatinine (0.5 - 1.0 mg/dL) 14.0 *H Estimated GFR (>60 ml/min) 3 L BUN/Creatinine Ratio (7 - 25 %) 5.2 L Glucose (65 - 99 mg/dL) 94 Calcium (8.4 - 10.2 mg/dL) 7.8 L Phosphorus (2.5 - 4.5 mg/dL) 9.7 H Magnesium (1.6 - 2.3 mg/dL) 2.4 H Total Bilirubin (0.2 - 1.3 mg/dL) 0.7 AST (14 - 36 U/L) 16 ALT (9 - 52 U/L) 30 Alkaline Phosphatase (<127 U/L) 88 Troponin I (< 0.11 ng/ml) 0.03 Total Protein (6.3 - 8.2 g/dL) 6.7 Albumin (3.5 - 5.0 g/dL) 4.2 Globulin (1.9 - 4.2 gm/dL) 2.5 Albumin/Globulin Ratio (1.1 - 2.2 %) 1.7 Total Beta HCG (NEGATIVE) NEGATIVE Cancelled Coagulation PT (9.4 - 12.5 SEC) 12.7 H INR (0.90 - 1.19) 1.21 H APTT (25 - 37 SEC) 36 Hematology CBC w Diff NO MAN DIFF REQ WBC (4.8 - 10.8 /CUMM) 9.4 RBC (4.20 - 5.40 /CUMM) 3.57 L Hgb (12.0 - 16.0 G/DL) 10.8 L Hct (37 - 47 %) 32.9 L MCV (81.0 - 99.0 FL) 92.1 MCH (27.0 - 31.0 PG) 30.2 RDW (11.5 - 14.5 %) 17.4 H Plt Count (130 - 400 /CUMM) 212 MPV (7.4 - 10.4 FL) 8.5 Gran % (42.2 - 75.2 %) 85.3 H Lymphocytes % (20.5 - 51.1 %) 9.0 L Monocytes % (1.7 - 9.3 %) 2.8 Eosinophils % (0 - 5 %) 2.9 Basophils % (0.0 - 2.0 %) 0 Absolute Granulocytes (1.4 - 6.5 /CUMM) 8.1 H Absolute Lymphocytes (1.2 - 3.4 /CUMM) 0.8 L Absolute Monocytes (0.10 - 0.60 /CUMM) 0.3 Absolute Eosinophils (0.0 - 0.7 /CUMM) 0.3 Absolute Basophils (0.0 - 0.2 /CUMM) 0 PUBS MCHC (33.0 - 37.0 G/DL) 32.8 L Serology Hep Bs Antigen (NONREACTIVE) NONREACTIVE Hep Bs Antibody (NONREACTIVE) REACTIVE
[2017-10-11 12:55] VITALS: BP 176/86
--- NOTE | 2017-10-11 13:36 | Patient Discharge Instructions ---
Discharge Instructions General Discharge Information You were seen/treated for: Hyperkalemia with EKG changes End-stage renal disease on hemodialysis Hypertension You had these procedures: Hemodialysis Special Instructions: Follow up with your PCP within 1-2 weeks after discharge Follow up with your [facility] upon discharge Diet Recommended Diet: Renal Dialysis Activity Full Activity/No Limits: Yes Acute Coronary Syndrome Inclusion Criteria At DC or during hospital stay patient has or had the following: ACS DIAGNOSIS No Discharge Core Measures Meds if any: Prescribed or Continued at Discharge Meds if any: NOT Prescribed or Continued at Discharge Congestive Heart Failure Inclusion Criteria At DC or during hospital stay patient has or had the following: CHF DIAGNOSIS No Discharge Core Measures Meds if any: Prescribed or Continued at Discharge Meds if any: NOT Prescribed or Continued at Discharge Cerebrovascular accident Inclusion Criteria At DC or during hospital stay patient has or had the following: CVA/TIA Diagnosis No Discharge Core Measures Meds if any: Prescribed or Continued at Discharge Meds if any: NOT Prescribed or Continued at Discharge Venous thromboembolism Inclusion Criteria VTE Diagnosis No VTE Type NONE VTE Confirmed by (Test) NONE Discharge Core Measures - Per Current guidelines, there needs to be overlap - treatment for the first 5 days of Warfarin therapy. - If discharged on Warfarin prior to 5 days of - overlap therapy, the patient will need to be - assessed for post discharge needs including - *Post discharge parental anticoagulation - *Warfarin and/or parental anticoagulation education - *Follow up date to check INR post discharge At least 5 days overlap therapy as Inpatient No Meds if any: Prescribed or Continued at Discharge Note: Overlap Therapy is Warfarin and Anticoagulant Meds if any: NOT Prescribed or Continued at Discharge
--- NOTE | 2017-10-11 22:59 | Discharge Summary ---
Hospital Course Allergies: Coded Allergies: Iodinated Contrast- Oral and IV Dye (Iodinated Contrast Media - Oral and) ( Intermediate, HIVES AND SWELLING 12/21/16) morphine (Intermediate, HIVES 12/21/16) Penicillins (RASH 12/21/16) hydroxyzine (PER PT UNKNOWN 12/21/16) lisinopril (ANGIODEMA 12/21/16) LEIDA Inhibitors (ANGIODEMA 12/21/16) Discharge Instructions Medications at Discharge Discharge Medications: Continue taking these medications: Epoetin Carlos (Epogen) 10,000 UNIT/ML VIAL 10,000 Unit Inject into fatty tissue EVERY 2 WEEKS Comments: Last Taken: NOT GIVEN IN HOSPITAL Time: Losartan (Cozaar) 100 MG TABLET 1 Tablet ORAL DAILY Comments: NOT GIVEN IN HOSPITAL Calcium (Elemental-Fr Calcarb) (Calcium Carbonate) 500 MG/5ML ORAL.SUSP 20 Milliliters ORAL TWICE DAILY Comments: NOT GIVEN IN HOSPITAL Alprazolam (Xanax) 0.5 MG TABLET 1 Tablet ORAL DAILY NEEDED as needed for ANXIETY Comments: Last Taken: 10/11/17 Time: 0730 AM Hydralazine HCl (Hydralazine HCl) 100 MG TABLET 1 Tablet ORAL THREE TIMES DAILY Comments: Last Taken: 10/11/17 Time: 1246 Ondansetron HCl (Zofran) 4 MG TABLET 1 Tablet ORAL Every 6-8 Hours as Needed as needed for NAUSEA Comments: Last Taken: NOT GIVEN IN HOSPITAL Apixaban (Eliquis) 5 MG TABLET 1 Tablet ORAL TWICE DAILY Qty = 60 Comments: Last Taken: 10/11/17 Time: 1246 Labetalol HCl (Labetalol HCl) 300 MG TABLET 1 Tablet ORAL THREE TIMES DAILY Comments: Last Taken: 10/11/17 Time: 1245 Amlodipine Besylate (Amlodipine Besylate) 10 MG TABLET 1 Tablet ORAL DAILY Comments: Last Taken: 10/11/17 Time:1246
== END 2017-10-11 15:00 | DRG 425 ==
LOC: ERH 09:29 → ERHI 13:01 → CRI 13:01 → ENRESERV 14:10 → ENTRNSPT 15:16 → CRI 16:14 → CMPTRNSPT 16:19 → CRI 10-10 16:36 → DELTRNSPT 10-11 14:54 → ENTRNSPT 10-11 14:55 → EDTRNSPT 10-11 14:57 → EDTRNSPTSTS 10-11 14:57 → CRI 10-11 15:00 → CMPTRNSPT 10-11 15:03
PROVIDERS: Emergency Medicine; Internal Medicine; Student in an Organized Health Care Education/Training Program
PROC: 5A1D70Z Performance of Urinary Filtration, Intermittent, Less than 6 Hours Per Day (ICD-10-PCS; principal; 2017-10-08)
PROC: 5A1D70Z Performance of Urinary Filtration, Intermittent, Less than 6 Hours Per Day (ICD-10-PCS; 2017-10-11)
DX: E87.5 Hyperkalemia (principal); Z86.73 Personal history of transient ischemic attack (TIA), and cerebral infarction without residual deficits; H35.039 Hypertensive retinopathy, unspecified eye; I12.0 Hypertensive chronic kidney disease with stage 5 chronic kidney disease or end stage renal disease; N18.6 End stage renal disease; Z99.2 Dependence on renal dialysis; Z91.15 Patient's noncompliance with renal dialysis; D63.1 Anemia in chronic kidney disease; G89.29 Other chronic pain; Z76.5 Malingerer [conscious simulation]; E78.5 Hyperlipidemia, unspecified; I34.0 Nonrheumatic mitral (valve) insufficiency; J45.909 Unspecified asthma, uncomplicated; M54.9 Dorsalgia, unspecified; E21.3 Hyperparathyroidism, unspecified; E66.9 Obesity, unspecified; Z86.718 Personal history of other venous thrombosis and embolism; Z79.01 Long term (current) use of anticoagulants; R01.1 Cardiac murmur, unspecified; Z86.14 Personal history of Methicillin resistant Staphylococcus aureus infection
CPT/HCPCS: CCU; 36415; 82436; 93005; 93010; J0610; J0885; J1170; J1200; J1815; J2405; J2501; J3101

== ENCOUNTER 2017-12-28 18:59 | Observation (INO) | payer OTHER ==
[~2017-12-28] VITALS: Ht 154.9 cm; Wt 69.5 kg
[~2017-12-28 18:59] MED LIST changes: -ELIQUIS5 M1 PO
--- NOTE | 2017-12-28 19:12 | ED GENERAL ADULT ---
History of Present Illness General Chief Complaint: Syncope and Near-Syncope Stated Complaint: BIBA FOR ?SYNCOPE Source: patient Exam Limitations: no limitations Vital Signs & Intake/Output Vital Signs & Intake/Output Vital Signs Date Time Temp Pulse Resp B/P B/P Pulse O2 O2 Flow FiO2 Mean Ox Delivery Rate 12/28 2236 100.4 76 20 135/72 95 Room Air 12/286 95 Room Air 12/28 1909 99.8 73 20 136/72 95 Room Air ED Intake and Output 12/29 0000 12/28 1200 Intake Total Output Total Balance Patient 160 lb Weight Weight Reported by Patient Measurement Method Allergies Coded Allergies: Iodinated Contrast- Oral and IV Dye (Iodinated Contrast Media - Oral and) ( Intermediate, HIVES AND SWELLING 12/21/16) morphine (Intermediate, HIVES 12/21/16) Penicillins (RASH 12/21/16) hydroxyzine (PER PT UNKNOWN 12/21/16) lisinopril (ANGIODEMA 12/21/16) LEIDA Inhibitors (ANGIODEMA 12/21/16) Reconcile Medications Alprazolam (Xanax) 0.5 MG TABLET 1 TAB PO DAILY NEEDED PRN ANXIETY ( Reported) Amlodipine Besylate 10 MG TABLET 1 TAB PO DAILY BP (Reported) Apixaban (Eliquis) 5 MG TABLET 1 TAB PO BID BLOOD THINNER (Reported) Calcium (Elemental-Fr Calcarb) (Calcium Carbonate) 500 MG/5ML ORAL.SUSP 20 ML PO BID SUPPLEMENT (Reported) Epoetin Carlos (Epogen) 10,000 UNIT/ML VIAL 10,000 UNIT SC Q2W ANEMIA (Reported ) Hydralazine HCl 100 MG TABLET 1 TAB PO TID HTN (Reported) Labetalol HCl 300 MG TABLET 1 TAB PO TID HTN (Reported) Losartan (Cozaar) 100 MG TABLET 1 TAB PO DAILY HEART (Reported) Ondansetron HCl (Zofran) 4 MG TABLET 1 TAB PO Q6-8P PRN NAUSEA (Reported) Triage Nurses Notes Reviewed? yes Onset: Abrupt Duration: day(s): Timing: recent history HPI: 12/28/17 11:35 PM 32-year-old female presents to the emergency department for syncope. She has a past medical history of renal failure secondary to hypertension. She also has a history of aortic sclerosis. Today she had a syncopal episode after dialysis. She hit her head and was unconscious for minutes according to the patient she denies any chest pain or shortness of breath. . Past History Travel History Traveled to [place] past 21 day No Medical History Any Pertinent Medical History? 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 infarct left CHERRY DIPPER stroke (March 2015) EENT: hypertensive retinopathy Cardiovascular: hypertension, hyperlipidemia, mitral regurgitation, LVH Respiratory: asthma, pneumonia Gastrointestinal: lower GI bleed (November 2016), duodenitis gastritis Hepatic: NONE Renal: ESRD on HD (previously on PD) Musculoskeletal: chronic back pain, sciatica Psychiatric: anxiety Endocrine: hyperparathyroidism (secondary), obesity, LUE DVT Blood Disorders: anemia of CKD left IJ thrombosis after dialysis cathether placement Cancer(s): NONE 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 No Review of Systems Review of Systems Constitutional: Reports: fever. EENTM: Reports: throat pain. Respiratory: Denies: short of breath. Cardiovascular: Denies: chest pain. GI: Denies: abdominal pain. Genitourinary: Reports: no symptoms. Musculoskeletal: Reports: no symptoms. Skin: Reports: no symptoms. Neurological/Psychological: Reports: headache. Hematologic/Endocrine: Reports: bruising. Physical Exam Physical Exam General Appearance: alert, awake, anxious Head: contusions Eyes: Bilateral: normal appearance, PERRL, EOMI. Ears, Nose, Throat: normal pharynx, normal ENT inspection Neck: normal inspection, supple Respiratory: normal breath sounds, chest non-tender, no respiratory distress Cardiovascular: regular rate/rhythm, 3/6 SYSTOLIC EJECTION MURMUR Peripheral Pulses: 3+ radial (R), 3+ radial (L) (RIGHT UPPER EXTREMITY AV GRAFT) Gastrointestinal: soft, non-tender Back: normal range of motion Extremities: no edema, RIGHT UPPER EXTREMITY AV GRAFT Neurologic/Psych: no motor/sensory deficits, awake, alert, oriented x 3 Skin: intact, normal color, warm/dry Core Measures ACS in differential dx? Yes No ASA d/t NO CHEST PAIN CVA/TIA Diagnosis: No Sepsis Present: No Sepsis Focused Exam Completed? No Progress Differential Diagnoses I considered the following diagnoses in my evaluation of the patient: [ Orthostatic hypotension, dysrhythmia, aortic stenosis, valvular heart disease, dysrhythmia, ventricular tachycardia] Plan of Care: Orders Procedure Date/time Status Renal Dialysis Diet 12/[address] in observation 12/28 2354 Active ED Holding Orders 12/28 2354 Active Vital Signs 12/28 2354 Active Code Status 12/28 2354 Active THROAT CULTURE W/QUICK STREP 12/29 2243 Active TROPONIN LEVEL 12/29 2219 Complete EKG 12/29 2219 Active Add-on Test (ER Only) 12/28 2002 Active EKG 12/28 1946 Active TROPONIN LEVEL 12/28 1929 Complete HUMAN BETA HCG SCREEN 12/28 1921 Complete COMPREHENSIVE METABOLIC PANEL 12/28 1921 Complete CBC WITHOUT DIFFERENTIAL 12/28 1921 Complete EKG 12/28 1921 Active Laboratory Tests 12/28/172221: Troponin I 0.02 12/28/171946: Troponin I Cancelled 12/28/171929: Anion Gap 16, Estimated GFR 8 L, BUN/Creatinine Ratio 3.7 L, Glucose 97, Calcium 8.8, Total Bilirubin 0.7, AST 8 L, ALT 18, Alkaline Phosphatase 96, Troponin I < 0.01, Total Protein 7.9, Albumin 4.5, Globulin 3.4, Albumin/ Globulin Ratio 1.3, Total Beta HCG NEGATIVE, CBC w Diff NO MAN DIFF REQ, RBC 4.16 L, MCV 96.2, MCH 31.4 H, MCHC 32.6 L, RDW 17.4 H, MPV 7.3 L, Gran % 77.5 H, Lymphocytes % 10.1 L, Monocytes % 9.9 H, Eosinophils % 2.3, Basophils % 0.2, Absolute Granulocytes 6.6 H, Absolute Lymphocytes 0.9 L, Absolute Monocytes 0.8 H, Absolute Eosinophils 0.2, Absolute Basophils 0 Initial ED EKG: NSR, nonspecific ST T wave chg Prior EKG: changed Repeat EKG: unchanged Departure Departure Disposition: STILL A PATIENT Condition: Stable Clinical Impression Primary Impression: Syncope Secondary Impressions: Acute electrocardiogram changes, Hypertension, Renal failure, Valvular heart disease Referrals: Erich Damon MD (PCP/Family) Departure Forms: Customer Survey General Discharge Information Comments Spoke with Dr. Riggs who recommending placing the patient inpatient observation. Observation Note Spoke With: Tracy Saleh MD Physician Advisor Notified: KD YI DO Place Patient In: Non-ED OBS Care Area Rationale for Observation: My rational for observation is as follows . Critical Care Note Critical Care Note Critical Care Time: 30-74 min
[2017-12-28 19:45] LABS: ABSOLUTE BASOPHIL COUNT 0 /CUMM (0.0-0.2); ABSOLUTE EOSINOPHIL COUNT 0.2 /CUMM (0.0-0.7); ABSOLUTE GRANULOCYTE CT 6.6 /CUMM (1.4-6.5); ABSOLUTE LYMPH COUNT 0.9 /CUMM (1.2-3.4); ABSOLUTE MONOCYTE COUNT 0.8 /CUMM (0.10-0.60); BASOPHIL % 0.2 % (0.0-2.0); EOSINOPHIL % 2.3 % (0-5); GRANULOCYTE % 77.5 % (42.2-75.2); MEAN CORPUSCULAR HGB 31.4 PG (27.0-31.0); MEAN CORPUSCULAR HGB CONC 32.6 G/DL (33.0-37.0); MEAN CORPUSCULAR VOLUME 96.2 FL (81.0-99.0); MEAN PLATELET VOLUME 7.3 FL (7.4-10.4); PLATELET COUNT 292 /CUMM (130-400); RBC DISTRIBUTION WIDTH 17.4 % (11.5-14.5); RED BLOOD CELL CT 4.16 /CUMM (4.20-5.40); WHITE BLOOD CELL COUNT 8.5 /CUMM (4.8-10.8)
--- NOTE | 2017-12-28 20:53 | CT SCAN REPORT ---
EXAMINATION: CT HEAD WITHOUT CONTRAST CT CERVICAL SPINE WITHOUT CONTRAST CLINICAL INFORMATION: Fall. Head injury. COMPARISON: Head CT from 10/08/2017. TECHNIQUE: Contiguous axial imaging was performed from the skullbase to vertex without intravenous administration of contrast. Multidetector helical imaging was performed through the cervical spine. DLP: 817.65 mGy-cm. FINDINGS: HEAD: There is no evidence of acute intracranial hemorrhage or territorial infarction. No abnormal mass effect or midline shift is seen. Granado to white matter differentiation is well preserved. No extra-axial fluid collections are identified. There is no evidence of hydrocephalus. Scattered patchy areas of low density change are again visible in the cerebral white matter which may be due to chronic microangiopathy. There is linear cystic encephalomalacia in the right basal ganglia and right external capsule with ex vacuo dilatation of the frontal horn of the right lateral ventricle. There is a chronic infarct in the left occipital lobe. The osseous structures and soft tissues are normal. There is mild mucosal thickening in the left ethmoid sinus air cells. The mastoid air cells and remaining visualized portions of the paranasal sinuses are well aerated. CERVICAL SPINE: No acute fracture or dislocation is identified in the cervical spine. The disc spaces are maintained. No large disc protrusion is seen. The atlantoaxial articulation is normally maintained. The paraspinal soft tissues are normal. The thyroid gland is somewhat heterogeneous but not enlarged. The lung apices are clear. IMPRESSION: 1. No acute intracranial pathology. Nonspecific patchy areas of low-density change in the cerebral white matter again visible which may be due to chronic microangiopathy. Encephalomalacia in the right basal ganglia and left occipital lobe from prior infarcts. 2. No evidence of acute cervical spine traumatic injury.
--- NOTE | 2017-12-28 21:00 | RADIOLOGY REPORT ---
EXAMINATION: XR PORTABLE CHEST CLINICAL INFORMATION: Syncope. COMPARISON: 07/14/2017 TECHNIQUE: Portable frontal view of the chest was obtained. FINDINGS: Lungs are symmetrically expanded and clear with exception of a thin linear opacity of focal scar or discoid atelectasis in the inferior lingula. No pulmonary edema, consolidation or pleural effusion. Cardiac silhouette is chronically, mildly enlarged. Atherosclerotic calcification of the thoracic aorta. The visualized bones are intact. IMPRESSION: 1. Cardiomegaly without pulmonary edema. 2. No acute pulmonary findings compared to 07/14/2017.
--- NOTE | 2017-12-29 00:20 | History & Physical ---
Sukhdeep Alonso MD 12/29/17 0020: General Information and HPI MD Statement: I have seen and personally examined TERI BORRERO and documented this H& P. The patient is a 32 year old F who presented with a patient stated chief complaint of syncope. Source of Information: patient, old records Exam Limitations: no limitations History of Present Illness: 32 year old female with a past medical history significant for hypertension, h/o CVA, end-stage renal disease from hypertension previously on peritoneal dialysis with hospitalization with fluid overload, hemodialysis catheter placement complicated by thrombus and CLABSI MSSA bacteremia, negative AARON for vegatations and complete four week course of Ancef after hemodialysis in 02/2017 presents with a syncopal episode after hemodialysis. The patient undergoes hemodialysis through her right upper extremity graft in [facility] with Dr. Javier on / /Wed. She was dialysed today, reportedly mildly tachycardic after finishing hemodiaylsis. She went home and states she was feeling more tired than usual. She states she was sitting on the cough after her daughter came home and the next thing she knows she woke up on the floor with her daughter screaming and her mother had come over who lives 5-10 minutes away. She lost consciousness for a period of time and thinks she hit her head because her head and neck hurt although no visible injuries. She denied any prodromal symptoms: no nausea, diaphoresis, chest pain, palpitations, dyspnea, or visual changes. She states a similar episode also happened to her one week ago after dialysis but that time she was standing in the kitchen and didn't seek medical care. She denied taking xanax before these episodes and there have been no changes in her blood pressure medications. Review of systems is only positive for neurological deficits of bilateral hemianopsia and left upper extremity mild weakness, recent sick contact of her father, sore throat, cough, and rhinorrhea for the past day. In the emergency department, she underwent CT imaging of the head and cervical spine, was given oxycodone, and admitted under observation status to telemetry. Allergies/Medications Allergies: Coded Allergies: Iodinated Contrast- Oral and IV Dye (Iodinated Contrast Media - Oral and) ( Intermediate, HIVES AND SWELLING 12/21/16) morphine (Intermediate, HIVES 12/21/16) Penicillins (RASH 12/21/16) hydroxyzine (PER PT UNKNOWN 12/21/16) lisinopril (ANGIODEMA 12/21/16) LEIDA Inhibitors (ANGIODEMA 12/21/16) Home Med list Alprazolam (Xanax) 0.5 MG TABLET 1 TAB PO DAILY NEEDED PRN ANXIETY ( Reported) Amlodipine Besylate 10 MG TABLET 1 TAB PO DAILY BP (Reported) Calcium (Elemental-Fr Calcarb) (Calcium Carbonate) 500 MG/5ML ORAL.SUSP 20 ML PO BID SUPPLEMENT (Reported) Epoetin Carlos (Epogen) 10,000 UNIT/ML VIAL 10,000 UNIT SC Q2W ANEMIA (Reported ) Hydralazine HCl 100 MG TABLET 1 TAB PO TID HTN (Reported) Labetalol HCl 300 MG TABLET 1 TAB PO TID HTN (Reported) Losartan (Cozaar) 100 MG TABLET 1 TAB PO DAILY HEART (Reported) Ondansetron HCl (Zofran) 4 MG TABLET 1 TAB PO Q6-8P PRN NAUSEA (Reported) Compliance With Home Meds: GOOD Past History Travel History Traveled to [place] past 21 day No Medical History Neurological: CVA (multiple ischemic/hemoorhagic), migraine, right basal ganglia lacunar infarct (2012) left basal ganglia lacunar infarct left ORTHO RN stroke (March 2015) EENT: hypertensive retinopathy Cardiovascular: hypertension, hyperlipidemia, mitral regurgitation, LVH Respiratory: asthma, pneumonia Gastrointestinal: lower GI bleed (November 2016), duodenitis gastritis Hepatic: NONE Renal: ESRD on HD (previously on PD) Musculoskeletal: chronic back pain, sciatica Psychiatric: anxiety Endocrine: hyperparathyroidism (secondary), obesity, LUE DVT Blood Disorders: anemia of CKD left IJ thrombosis after dialysis cathether placement Cancer(s): NONE 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 child, parent Services at Home: None Primary Language: Kiswahili ETOH Use: denies use Illicit Drug Use: denies illicit drug use Living Will? yes Functional Ability ADLs Independent: dressing, eating, toileting, bathing. Ambulation: independent IADLs Independent: shopping, housework, finances, food prep, telephone, transportation , medication admin. Review of Systems Review of Systems Constitutional: Reports: chills, fever, malaise. Denies: diaphoresis, weakness. Cardiovascular: Reports: syncope. Denies: chest pain, palpitations, peripheral edema. Respiratory: Reports: cough. Denies: short of breath, sputum production, wheezing. GI: Reports: no symptoms. Genitourinary: Reports: no symptoms. Musculoskeletal: Reports: no symptoms. Skin: Reports: no symptoms. Neurological/Psychological: Reports: weakness. Exam & Diagnostic Data Last 24 Hrs of Vital Signs/I&O Vital Signs Date Time Temp Pulse Resp B/P B/P Pulse O2 O2 Flow FiO2 Mean Ox Delivery Rate 12/29 0027 97.9 70 18 125/68 97 Room Air 12/28 2237 100.4 76 20 135/72 95 Room Air 12/28 1916 95 Room Air 12/28 1910 99.8 73 20 136/72 95 Room Air Intake & Output 12/29 0800 12/29 0000 12/28 1600 Intake Total Output Total Balance Patient 72.575 kg Weight Weight Reported by Patient Measurement Method Physical Exam General Appearance Alert, Oriented X3, Cooperative, No Acute Distress Cardiovascular Regular Rate, Normal S1, Normal S2, apical systolic murmur Lungs Clear to Auscultation, Normal Air Movement Abdomen Normal Bowel Sounds, Soft, No Tenderness, No Masses Extremities No Clubbing, No Cyanosis, No Edema, Normal Pulses, RUE fistula + thrill, clean dry and intact, left hand ring finger paronychia Last 24 Hrs of Labs/Ashwin: Laboratory Tests 12/28/17 2222: Troponin I 0.02 12/28/171946: Troponin I Cancelled 12/28/171929: Anion Gap 16, Estimated GFR 8 L, BUN/Creatinine Ratio 3.7 L, Glucose 97, Calcium 8.8, Total Bilirubin 0.7, AST 8 L, ALT 18, Alkaline Phosphatase 96, Troponin I < 0.01, Total Protein 7.9, Albumin 4.5, Globulin 3.4, Albumin/ Globulin Ratio 1.3, Total Beta HCG NEGATIVE, CBC w Diff NO MAN DIFF REQ, RBC 4.16 L, MCV 96.2, MCH 31.4 H, MCHC 32.6 L, RDW 17.4 H, MPV 7.3 L, Gran % 77.5 H, Lymphocytes % 10.1 L, Monocytes % 9.9 H, Eosinophils % 2.3, Basophils % 0.2, Absolute Granulocytes 6.6 H, Absolute Lymphocytes 0.9 L, Absolute Monocytes 0.8 H, Absolute Eosinophils 0.2, Absolute Basophils 0 Diagnostic Data EKG Results sinus rhythm anterolateral nonspecific ST changes CXR Results 1. Cardiomegaly without pulmonary edema. 2. No acute pulmonary findings compared to 07/14/2017. Other Results No acute fracture or dislocation is identified in the cervical spine. The disc spaces are maintained. No large disc protrusion is seen. The atlantoaxial articulation is normally maintained. The paraspinal soft tissues are normal. The thyroid gland is somewhat heterogeneous but not enlarged. The lung apices are clear. IMPRESSION: 1. No acute intracranial pathology. Nonspecific patchy areas of low-density change in the cerebral white matter again visible which may be due to chronic microangiopathy. Encephalomalacia in the right basal ganglia and left occipital lobe from prior infarcts. 2. No evidence of acute cervical spine traumatic injury. ECHO 2017 1. There are no obvious vegetative lesions detected on this examination 2. Aortic sclerosis is present with no valvular stenosis or insufficiency 3. Mitral leaflet thickening is present with moderate anular calcification and minimal mitral insufficiency with mild to moderate left atrial enlargement 4. There is no significant pericardial fluid present 5. The left ventricular chamber size is normal with moderate to severe concentic hypertrophy and hyperdynamic systolic function. 6. The right heart structures are grossly normal. Minimal to mild tricuspid insufficiency is present. The RV systolic pressure was not accurately assessed 7. There are no obvious vegetations detected on this study. If clinically indicated, a AARON would better exclude valvular vegetative lesions NCHCT 1. No acute intracranial pathology. Nonspecific patchy areas of low-density change in the cerebral white matter again visible which may be due to chronic microangiopathy. Encephalomalacia in the right basal ganglia and left occipital lobe from prior infarcts. 2. No evidence of acute cervical spine traumatic injury. Assessment/Plan Assessment: 32 year old female with a past medical history significant for hypertension, h/o CVA, end-stage renal disease from hypertension previously on peritoneal dialysis with hospitalization with fluid overload, hemodialysis catheter placement complicated by thrombus and CLABSI MSSA bacteremia, negative AARON for vegatations and complete four week course of Ancef after hemodialysis in 02/2017 presents with a syncopal episode after hemodialysis. Syncope: Observe on veterinary assistant technician for arrhythmia Repeat troponins and EKGs to evaluate for myocardial ischemia Cardiology consultation with Dr. Mariee Consider repeat echocardiogram Carotid doppler 03/2015 1. No significant internal carotid artery stenosis by sonographic criteria. There is antegrade flow within the vertebral arteries bilaterally and there is mild atherosclerotic calcification along the common carotid arteries and the carotid bifurcations. 2. Asymmetrically elevated proximal left common carotid artery peak systolic velocity that can be assessed with an MRA of the neck or CTA of the neck. Paronychia: Patient had low grade fever without leukocytosis Ancef 500mg IV Consider plastics or surgery consult for I+D if worsens ESRD on HD: Nephrology consultation for hemodialysis Consider reducing ultrafiltration volume Not anemic currently, hold epogen HTN: Continue norvasc 10mg QD Continue hydralazine 100mg TID Continue labetalol 300mg TID Continue losartan 100mg QD History of CVA: Not on aspirin or statin Was previously on eliquis for DVT, unclear when medication was stopped 10/2017? Renal dialysis diet DVT ppx-heparin 5000 units subcutaneous q8h Full code As Ranked By This Provider Problem List: 1. Syncope 2. HTN (hypertension) 3. ESRD on hemodialysis Core Measures/Misc (06/13) Acute Coronary Syndrome ACS Diagnosis: No Congestive Heart Failure Congestive Heart Failure Diagnosis No Cerebrovascular Accident CVA/TIA Diagnosis: No VTE (View Protocol) VTE Risk Factors Age>40 No Mechanical VTE Prophylaxis d/t N/A MechProphylax Ordered No VTE Pharm Prophylaxis d/t NA PharmProphylax ordered Sepsis (View protocol) Sepsis Present: No Tracy Saleh 12/29/17 0546: Attending MD Review Statement Attending Statement Attending MD Statement: examined this patient, discuss w/resident/PA/STEEL LAYER, agreed w/resident/PA/STEEL LAYER, reviewed EMR data (avail), reviewed images, amended to note Attending Assessment/Plan: CC: Passed out PMH: ESRD on hemodialysis on Tuesdays, Wednesday, HTN, history of CVA, history of left IJ thrombus February 2017 : Anticoagulation discontinued in October , history of MSSA bacteremia, Patient was brought in ER through EMS after an episode of syncope. Patient states that she came home from hemodialysis, 2 hour after that she was sitting on the couch and next thing she remembers she woke up on the floor. Her daughter was screaming and her mother was there and she was not sure how she got there. No family member is available bedside for collateral information. She had similar episode approximately 1 week back when she came back from hemodialysis and was in kitchen at that time standing when she passed out and fell on the floor. This time after waking up she was mildly confused but then became more alert, complained of head and neck pain. Recently did not have any nausea, vomiting, diarrhea, urinary symptoms. She usually takes all her medications every day and does not stop any antihypertensives before dialysis. According to her blood pressure was in 120s systolic during the dialysis which is low for her. She denies any chest pain, palpitations before the episode and did not feel any clamminess, or thrush feeling before the episode. She also complains of left ring finger pain, after a near trauma she bled at that site and then had pus discharge from side of the nail. Denies any fever or chills at home. Vitals: T max 100.4, pulse 73, RR 20, blood pressure 136/72, saturating 95% on room air. On exam: A O 3, cooperative, no acute distress, neck supple, JVD normal, no lymphadenopathy, mucosa moist, complete neurological examination unremarkable except peripheral vision is limited in lateral and lower quadrants, assessment and plan no dependent edema, left ring finger has inflammation around the nail, fluctuation, no crepitus probably small abscess, CVS: S1-S2, RRR. RS: Clear to auscultate bilaterally. Abdomen: Soft, NT, ND, bowel sounds present. CT head and cervical spine: 1. No acute intracranial pathology. Nonspecific patchy areas of low-density change in the cerebral white matter again visible which may be due to chronic microangiopathy. Encephalomalacia in the right basal ganglia and left occipital lobe from prior infarcts. 2. No evidence of acute cervical spine traumatic injury. CXR: 1. Cardiomegaly without pulmonary edema. 2. No acute pulmonary findings compared to 07/14/2017. Assessment and plan 32-year-old female with extensive past medical history and multiple comorbidities as mentioned above presented in ER after an episode of syncope. Patient did not have any prodromal symptoms, she was sitting on the couch next thing she remembers is waking up from the floor. She was mildly confused after waking up but became alert very quickly, EMS was called thereafter and patient was brought in ER. Patient complained of head and neck pain at that time. No collateral information is available to assess any seizure-like activity, bladder or bowel incontinence. But this appears most likely syncopal episode, ECG showed nonspecific ST changes, on auscultation she has systolic murmur in aortic area otherwise exam unremarkable. She would benefit from telemetry observation for syncope evaluation. Meanwhile she also has infection of her left ring finger tip around the nail, fluctuation present and she had pus discharge from there couple of days back had fever of 100.4 in ER and mild left shift. We will cover empirically with antibiotics (renally adjusted) and obtain a hand surgeon opinion. + Syncope + left ring finger infection + Hx of ESRD on hemodialysis on Tuesdays, Wednesday, HTN, history of CVA, history of left IJ thrombus February 2017 : Anticoagulation discontinued in October, history of MSSA bacteremia - Place in observation on telemetry - Continuous telemetry monitoring - Serial troponin and EKG - Orthostatic vitals - 2-D echocardiogram in a.m. - Cardiology consult - DVT prophylaxis - Adequate pain control - Continue all her home antihypertensives - Inform accountant clerk about patient being in the hospital - Continue cefazolin IV - Hand surgery consult in a.m. for left ring finger infection Yanni COTA,[facility] 12/29/17 0558: Resident Review Statement Resident Statement: examined this patient, discussed with sourcing internship, agreed with sourcing internship Other Findings: 32-year-old female with a past medical history significant for hypertension, CVA , ESRD on dialysis who presented with a chief complaint of dizziness and syncopal episode. The patient had dialysis earlier today at which she felt tachycardia, 2 hours after that she was sitting on the couch when she suddenly felt dizzy and lost consciousness for about 3-5 minutes. She denies tongue biting or loss of control over bowel or urine habits, however she thinks that she hit her head because she felt headache after regaining her consciousness. She had similar episode one week ago after dialysis but that time she was standing in the kitchen and didn't seek medical attention. On admission BP 136/70, HR 73, temp 99.8, and saturating well on room air. Significant labs were creatinine of 6 but she is ESRD. Head and neck CT showed nonspecific low-density changes in the cerebral white matter and encephalomalacia and right basal continue home from prior infarcts no evidence of acute injuries. Chest x-ray showed cardiomegaly without pulmonary edema. Assessment Patient reported that she feels dizzy after each dialysis, she is on multiple antihypertensive medication, her symptom possibly secondary to orthostatic hypotension. She had mild fever on admission, she reports sick contact with her father, sore throat and small abscess on corner of her fingernail. Problem list * Dizziness and syncopal * Nonspecific ST changes * Paronychia * ESRD on HD * HTN * Hx of CVA Plan * Monitor in telemetry as an OBS * Rule out ACS with serial EKG and troponin * Continue antihypertensive medication including norvasc 10mg QD, hydralazine 100mg TID, Labetalol 300mg TID, and losartan 100mg QD * Cefazolin 500 mg daily(dose adjusted for ESRD) * Nephro consult * Cardiology consult * Plastic consult for paronychia Renal dialysis diet DVT ppx-heparin 5000 units subcutaneous q8h Full code
--- NOTE | 2017-12-29 07:19 | PN- Housestaff ---
Benny COTA,[facility] 12/29/17 0718: Subjective Follow-up For: Syncope Cellulitis of 4th finger ESRD on dialysis Tele-Events Since Last Visit: Down in ED Subjective: No acute events overnight. States pain in L 4th digit. Askiing for xanax. Throat pain. Review of Systems Constitutional: Reports: see HPI. Objective Last 24 Hrs of Vital Signs/I&O Vital Signs Date Time Temp Pulse Resp B/P B/P Pulse O2 O2 Flow FiO2 Mean Ox Delivery Rate 12/29 1635 66 130/80 12/29 1635 66 130/80 12/29 1630 66 130/80 12/29 1600 Room Air 12/29 1433 99.2 67 20 142/78 95 Room Air 12/29 1346 68 20 136/90 97 Room Air 12/29 1031 97.0 67 20 130/77 12/29 1031 97.0 67 20 130/77 12/29 1029 97.0 67 20 130/77 12/29 1029 97.0 67 20 130/77 12/29 1029 97.0 67 20 130/77 97 Room Air 12/29 0613 97.9 68 18 128/70 97 Room Air / 0328 98.7 74 18 134/71 96 Room Air 12/29 0027 97.9 70 18 125/68 97 Room Air 12/28 2237 100.4 76 20 135/72 95 Room Air Intake & Output 12/29 1600 12/29 0800 12/29 0000 Intake Total 200 Output Total Balance 200 Intake, Oral 200 Patient 160 lb 160 lb Weight Weight Reported by Patient Measurement Method Physical Exam General Appearance: Alert, Oriented X3, Cooperative, No Acute Distress, disheveled HEENT: Mucous Membr. moist/pink, no signs of thrush Cardiovascular: Regular Rate, Normal S1, Normal S2 Lungs: Clear to Auscultation, Normal Air Movement Abdomen: Normal Bowel Sounds, Soft, No Tenderness Vascular: RUE fistula Current Medications: Current Medications Sig/Bryan Start time Last Medication Dose Route Stop Time Status Admin Alprazolam 0.5 MG DAILY NEEDED PRN 12/29 1630 AC PO 01/05 1629 Amlodipine Besylate 0 .STK-MED ONE 12/29 1039 DC PO Amlodipine Besylate 10 MG DAILY 12/29 1000 AC 12/29 PO 1029 Cefazolin Sodium 0 .STK-MED ONE 12/29 626 DC .ROUTE Cefazolin Sodium 500 MG DAILY@0600 12/29 0600 AC 12/29 IV 0627 Heparin Sodium 0 .STK-MED ONE 12/29 626 DC (Porcine) .ROUTE Heparin Sodium 5,000 UNIT Q8 12/29 06 AC (Porcine) SC Hydralazine HCl 100 MG TID 12/29 1000 AC PO Labetalol HCl 300 MG TID 12/29 1000 AC PO Losartan Potassium 100 MG DAILY 12/29 1000 AC 12/29 PO 1029 Last 24 Hrs of Lab/Ashwin Results Last 24 Hrs of Labs/Mics: Laboratory Tests 12/29/171999: Lactic Acid 1.3, Troponin I < 0.01 12/28/172221: Troponin I 0.02 Assessment/Plan Assessment: A: 32 year old female with a past medical history significant for hypertension, h/o CVA, end-stage renal disease from hypertension previously on peritoneal dialysis with hospitalization with fluid overload, hemodialysis catheter placement complicated by thrombus and CLABSI MSSA bacteremia, negative AARON for vegatations and complete four week course of Ancef after hemodialysis in 02/2017 presents with a syncopal episode after hemodialysis. #Syncope: Trop <.01, .02 Unable to get 3rd trop as she was a hard stick head CT/cervical spine: No acute intracranial pathology. Nonspecific patchy areas of low-density change in the cerebral white matter again visible which may be due to chronic microangiopathy. Encephalomalacia in the right basal ganglia and left occipital lobe from prior infarcts. -f/u orthostatics -f/u cards consult #Paronychia: Patient had low grade fever without leukocytosis -cont cefazolin -f/u platics consult #ESRD on HD: -Nephrology consultation for hemodialysis -MWF dialysis #HTN: -Continue norvasc, hydralazine, labetalol, losartan #History of CVA: Not on aspirin or statin Was previously on eliquis for DVT, unclear when medication was stopped 10/2017? #Anxiety -cont xanax -check CT trauma therapist tomorrow Renal dialysis diet DVT ppx-heparin 5000 units subcutaneous q8h Full code Problem List: 1. Syncope 2. ESRD (end stage renal disease) on dialysis 3. Cellulitis Pain Ratin Pain Location: L 4th finger Pain Goal: Pain 4 or less Pain Plan: pain pathway Tomorrow's Labs & Rationales: cbc bep Dino COTA,[facility] 12/29/17 1100: Attending MD Review Statement Attending Statement Attending MD Statement: examined this patient, discuss w/resident/PA/SILICA SPRAY MIXER, agreed w/resident/PA/SILICA SPRAY MIXER, reviewed EMR data (avail) Attending Assessment/Plan: 32F PMH ESRD on HD (/), HTN, history of hemorrhagic and ischemic CVA, history of left IJ thrombus February 2017 : Anticoagulation discontinued in October , history of MSSA bacteremia presenting with syncopal episode following dialysis. Was in her usual state of health, had a normal dialysis, then 2 hours later passed out on her couch with no memory of what happened. She also had a mild fever 100.4, and has left 4th finger erythema and swelling consistent with cellulitis. She is sleepy this morning but otherwise well, only complaint is finger pain. 1. Syncope and collapse 2. Left fourth finger distal cellulitis 3. ESRD on HD Plan - Observation in telemetry - Cardiology, nephrology, and plastic surgery consults - Continue Cefazolin - Follow cultures - Monitor renal function - Continue home medications - DVT PPx
--- NOTE | 2017-12-29 13:57 | Cons- Cardiology ---
General Information and HPI Consulting Request Date of Consult: 12/29/17 Requested By: Chastity Sun MD Reason for Consult: Syncope Source of Information: patient, old records Exam Limitations: no limitations History of Present Illness: 32-year-old female, well-known to me, extensive past medical history as noted. Now presents with episode of fatigue post dialysis followed by apparent syncopal episode, waking on the floor. It is unclear how long she was unconscious for. The patient believes she hit her head. No visible major injuries. No obvious prodromal symptoms.according to the patient, similar episode while standing in the kitchen about a week ago. No other obvious cardiac symptoms Allergies/Medications Allergies: Coded Allergies: Iodinated Contrast- Oral and IV Dye (Iodinated Contrast Media - Oral and) ( Intermediate, HIVES AND SWELLING 12/21/16) morphine (Intermediate, HIVES 12/21/16) Penicillins (RASH 12/21/16) hydroxyzine (PER PT UNKNOWN 12/21/16) lisinopril (ANGIODEMA 12/21/16) LEIDA Inhibitors (ANGIODEMA 12/21/16) Home Med List: Alprazolam (Xanax) 0.5 MG TABLET 1 TAB PO DAILY NEEDED PRN ANXIETY ( Reported) Amlodipine Besylate 10 MG TABLET 1 TAB PO DAILY BP (Reported) Calcium (Elemental-Fr Calcarb) (Calcium Carbonate) 500 MG/5ML ORAL.SUSP 20 ML PO BID SUPPLEMENT (Reported) Clindamycin HCl 300 MG CAPSULE 1 CAP PO TID CELLULITIS Epoetin Carlos (Epogen) 10,000 UNIT/ML VIAL 10,000 UNIT SC Q2W ANEMIA (Reported ) Hydralazine HCl 100 MG TABLET 1 TAB PO TID HTN (Reported) Labetalol HCl 300 MG TABLET 1 TAB PO TID HTN (Reported) Losartan (Cozaar) 100 MG TABLET 1 TAB PO DAILY HEART (Reported) Ondansetron HCl (Zofran) 4 MG TABLET 1 TAB PO Q6-8P PRN NAUSEA (Reported) Current Medications: Current Medications Sig/Bryan Start time Last Medication Dose Route Stop Time Status Admin Amlodipine Besylate 0 .STK-MED ONE 12/29 1039 DC PO Amlodipine Besylate 10 MG DAILY 12/29 1000 AC 12/29 PO 1029 Cefazolin Sodium 0 .STK-MED ONE 12/29 0627 DC .ROUTE Cefazolin Sodium 500 MG DAILY@0600 12/29 0600 AC 12/29 IV 0627 Heparin Sodium 0 .STK-MED ONE 12/29 0627 DC (Porcine) .ROUTE Heparin Sodium 5,000 UNIT Q8 12/29 0600 AC (Porcine) SC Hydralazine HCl 100 MG TID 12/29 1000 AC PO Labetalol HCl 300 MG TID 12/29 1000 AC PO Losartan Potassium 100 MG DAILY 12/29 1000 AC 12/29 PO 1029 Oxycodone/ 0 .STK-MED ONE 12/28 2102 DC Acetaminophen PO Oxycodone/ 1 TAB ONCE ONE 12/28 2100 DC 12/28 Acetaminophen PO 12/28 Past History Travel History Traveled to [place] past 21 day No Medical History Neurological: CVA (multiple ischemic/hemoorhagic), migraine, right basal ganglia lacunar infarct (2012) left basal ganglia lacunar infarct left [employer] TE[employer] stroke (March 2015) EENT: hypertensive retinopathy Cardiovascular: hypertension, hyperlipidemia, mitral regurgitation, LVH Respiratory: asthma, pneumonia Gastrointestinal: lower GI bleed (November 2016), duodenitis gastritis Hepatic: NONE Renal: ESRD on HD (previously on PD) Musculoskeletal: chronic back pain, sciatica Psychiatric: anxiety Endocrine: hyperparathyroidism (secondary), obesity, LUE DVT Blood Disorders: anemia of CKD left IJ thrombosis after dialysis cathether placement Cancer(s): NONE 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 child, parent Services at Home: None Primary Language: [place] Islander ETOH Use: denies use Illicit Drug Use: denies illicit drug use Living Will? yes Functional Ability ADLs Independent: dressing, eating, toileting, bathing. Ambulation: independent IADLs Independent: shopping, housework, finances, food prep, telephone, transportation , medication admin. ECHO Results (as available) Report: CONCLUSIONS 1. Mild aortic sclerosis is present with mild aortic insufficiency. 2. Mitral leaflet thickening is present with mild to moderate anular calcification and mild mitral insufficiency with moderate left atrial enlargement. 3. There is no pericardial fluid present. 4. The left ventricular chamber size is normal with severe concentric hypertrophy and a normal ejection fraction with no resting wall motion abnormalities. Mild diastolic dysfunction is present. 5. Mild to moderate tricuspid insufficiency is present with mild pulmonic insufficiency and mild pulmonary hypertension with an estimated RV systolic pressure of 46 mmHg. 6. THere appearts to be a mobile echodensity present in the distal aspect of the transverse aortic arch. Further assessment is suggested if clinically indicated (chest CT, AARON, etc.). Exam & Diagnostic Data Vital Signs and I&O Vital Signs Date Time Temp Pulse Resp B/P B/P Pulse O2 O2 Flow FiO2 Mean Ox Delivery Rate 12/29 1346 68 20 136/90 97 Room Air 04/ 1031 97.0 67 20 130/77 04/04 1031 97.0 67 20 130/77 04/04 1029 97.0 67 20 130/77 04/04 1029 97.0 67 20 130/77 04/04 1029 97.0 67 20 130/77 97 Room Air 04/ 0613 97.9 68 18 128/70 97 Room Air 04/04 0328 98.7 74 18 134/71 96 Room Air 04/ 0027 97.9 70 18 125/68 97 Room Air /03 2237 100.4 76 20 135/72 95 Room Air /03 1916 95 Room Air / 1910 99.8 73 20 136/72 95 Room Air Intake & Output 12/29 1600 12/29 0800 12/29 0000 12/28 1600 12/28 0800 12/28 0000 Intake Total Output Total Balance Patient 160 lb Weight Weight Reported by Patient Measurement Method Physical Exam: General Appearance: Alert, Oriented X3, Cooperative, No Acute Distress Cardiovascular: Regular Rate, Normal S1, Normal S2, S4, 1/6 systolic murmur Lungs: Clear to Auscultationand percussion bilaterally Abdomen: Normal Bowel Sounds, Soft, No Tenderness Extremities: RUE fistula, L 4th finger cellulitis Vascular: normal bilaterally Labs/Ashwin Results: Laboratory Tests 12/28 12/28 12/28 2222 1947 1930 Chemistry Sodium (137 - 145 mmol/L) 143 Potassium (3.5 - 5.1 mmol/L) 4.8 Chloride (98 - 107 mmol/L) 96 L Carbon Dioxide (22 - 30 mmol/L) 31 H Anion Gap (5 - 16) 16 BUN (7 - 17 mg/dL) 22 H Creatinine (0.5 - 1.0 mg/dL) 6.0 *H Estimated GFR (>60 ml/min) 8 L BUN/Creatinine Ratio (7 - 25 %) 3.7 L Glucose (65 - 99 mg/dL) 97 Calcium (8.4 - 10.2 mg/dL) 8.8 Total Bilirubin (0.2 - 1.3 mg/dL) 0.7 AST (14 - 36 U/L) 8 L ALT (9 - 52 U/L) 18 Alkaline Phosphatase (<127 U/L) 96 Troponin I (< 0.11 ng/ml) 0.02 Cancelled < 0.01 Total Protein (6.3 - 8.2 g/dL) 7.9 Albumin (3.5 - 5.0 g/dL) 4.5 Globulin (1.9 - 4.2 gm/dL) 3.4 Albumin/Globulin Ratio (1.1 - 2.2 %) 1.3 Total Beta HCG (NEGATIVE) NEGATIVE Hematology CBC w Diff NO MAN DIFF REQ WBC (4.8 - 10.8 /CUMM) 8.5 RBC (4.20 - 5.40 /CUMM) 4.16 L Hgb (12.0 - 16.0 G/DL) 13.1 Hct (37 - 47 %) 40.0 MCV (81.0 - 99.0 FL) 96.2 MCH (27.0 - 31.0 PG) 31.4 H MCHC (33.0 - 37.0 G/DL) 32.6 L RDW (11.5 - 14.5 %) 17.4 H Plt Count (130 - 400 /CUMM) 292 MPV (7.4 - 10.4 FL) 7.3 L Gran % (42.2 - 75.2 %) 77.5 H Lymphocytes % (20.5 - 51.1 %) 10.1 L Monocytes % (1.7 - 9.3 %) 9.9 H Eosinophils % (0 - 5 %) 2.3 Basophils % (0.0 - 2.0 %) 0.2 Absolute Granulocytes (1.4 - 6.5 /CUMM) 6.6 H Absolute Lymphocytes (1.2 - 3.4 /CUMM) 0.9 L Absolute Monocytes (0.10 - 0.60 /CUMM) 0.8 H Absolute Eosinophils (0.0 - 0.7 /CUMM) 0.2 Absolute Basophils (0.0 - 0.2 /CUMM) 0 Diagnostic Data CXR Results FINDINGS: Lungs are symmetrically expanded and clear with exception of a thin linear opacity of focal scar or discoid atelectasis in the inferior lingula. No pulmonary edema, consolidation or pleural effusion. Cardiac silhouette is chronically, mildly enlarged. Atherosclerotic calcification of the thoracic aorta. The visualized bones are intact. IMPRESSION: 1. Cardiomegaly without pulmonary edema. 2. No acute pulmonary findings compared to 07/14/2017. Assessment/Plan Assessment/Plan assessment: 1. Syncope-at the moment, the patient's story is somewhat unclear. Possibilities are likely to include vasovagal or blood pressure related event. Possibility of arrhythmia remains to be excluded. The patient also has a history of prior CVA and seizure remains in the differential as well. 2. End-stage renal disease on dialysis 3. Finger cellulitis 4. hypertension 5. History of prior stroke Recommendations: -Monitor on telemetry -Check orthostatic heart rate and blood pressure every shift 3 -ECG tonight and again in the morning -Check all metabolic parameters. Check TSH. Check B12. -Neurology and nephrology input pending -Consider follow-up echocardiogram to rule out change in left ventricular function, wall motion, etc. -Consider EEG Consult Acknowledgment - Thank you for your consult request.
[2017-12-29 14:33] VITALS: BP 142/78
[2017-12-29 16:30] VITALS: BP 130/80
[2017-12-29 22:20] VITALS: BP 150/90
[2017-12-30 06:44] VITALS: BP 146/88
[2017-12-30 08:11] LABS: ABSOLUTE BASOPHIL COUNT 0.1 /CUMM (0.0-0.2); ABSOLUTE EOSINOPHIL COUNT 0.4 /CUMM (0.0-0.7); ABSOLUTE LYMPH COUNT 1.3 /CUMM (1.2-3.4); ABSOLUTE MONOCYTE COUNT 0.9 /CUMM (0.10-0.60); BASOPHIL % 0.6 % (0.0-2.0); EOSINOPHIL % 3.7 % (0-5); GRANULOCYTE % 77.1 % (42.2-75.2); HEMATOCRIT 37.5 % (37-47); MEAN CORPUSCULAR HGB 31.5 PG (27.0-31.0); MEAN CORPUSCULAR HGB CONC 32.7 G/DL (33.0-37.0); MEAN CORPUSCULAR VOLUME 96.2 FL (81.0-99.0); MEAN PLATELET VOLUME 8.1 FL (7.4-10.4); PLATELET COUNT 245 /CUMM (130-400); RBC DISTRIBUTION WIDTH 17.4 % (11.5-14.5); WHITE BLOOD CELL COUNT 11.7 /CUMM (4.8-10.8)
--- NOTE | 2017-12-30 08:37 | PN- Housestaff ---
Benny COTA,[facility] 12/30/17 0837: Subjective Follow-up For: ESRD Syncope Cellulitis Subjective: No acute events overnight. Patient requesting to leave AMA as she doesnt want dialysis here. Review of Systems Constitutional: Reports: see HPI. Objective Last 24 Hrs of Vital Signs/I&O Vital Signs Date Time Temp Pulse Resp B/P B/P Pulse O2 O2 Flow FiO2 Mean Ox Delivery Rate 12/31 643 98.8 73 20 146/88 95 12/29 2220 98.6 68 21 150/90 96 12/29 2216 68 150/90 12/29 2215 68 150/90 Intake & Output 12/30 1600 12/30 0800 12/30 0000 Intake Total 120 480 Output Total Balance 120 480 Intake, Oral 120 480 Output, Stool Output, Urine Patient 153 lb Weight Physical Exam General Appearance: Alert, Oriented X3, Cooperative, No Acute Distress Cardiovascular: Regular Rate, Normal S1, Normal S2 Lungs: Clear to Auscultation, Normal Air Movement Abdomen: Normal Bowel Sounds, Soft, No Tenderness Extremities: RUE fistula, L 4th finger cellulitis Vascular: 2+ L radial pulse Current Medications: Current Medications Sig/Bryan Start time Last Medication Dose Route Stop Time Status Admin Alprazolam 0.5 MG DAILY NEEDED PRN 12/29 1630 DCD 12/29 PO 01/05 1629 2216 Amlodipine Besylate 10 MG DAILY 12/29 1000 DCD 12/29 PO 1029 Cefazolin Sodium 500 MG DAILY@0600 12/29 0600 DCD 04 IV 0631 Heparin Sodium 5,000 UNIT Q8 12/29 0600 DCD (Porcine) SC Hydralazine HCl 100 MG TID 12/29 1000 DCD 12/29 PO 2216 Labetalol HCl 300 MG TID 12/29 1000 DCD 12/29 PO 2215 Lidocaine/Prilocaine 1 UDAY DAILY NEEDED PRN 12/30 1045 DCD TOP Losartan Potassium 100 MG DAILY 12/29 1000 DCD 12/29 PO 1029 Last 24 Hrs of Lab/Ashwin Results Last 24 Hrs of Labs/Mics: Laboratory Tests 12/30/17 0812: Sodium Cancelled, Potassium Cancelled, Chloride Cancelled, Carbon Dioxide Cancelled, Anion Gap Cancelled, BUN Cancelled, Creatinine Cancelled, BUN/ Creatinine Ratio Cancelled, Calcium Cancelled, Phosphorus Cancelled, Magnesium Cancelled, Albumin Cancelled, CBC w Diff Cancelled, WBC Cancelled, RBC Cancelled , Hgb Cancelled, Hct Cancelled, MCV Cancelled, MCH Cancelled, MCHC Cancelled, RDW Cancelled, Plt Count Cancelled, MPV Cancelled 12/30/17 0630: Anion Gap 18 H, Estimated GFR 5 L, BUN/Creatinine Ratio 4.3 L, Vitamin B12 839, TSH 0.571, CBC w Diff NO MAN DIFF REQ, RBC 3.90 L, MCV 96.2, MCH 31.5 H, MCHC 32.7 L, RDW 17.4 H, MPV 8.1, Gran % 77.1 H, Lymphocytes % 11.0 L, Monocytes % 7.6, Eosinophils % 3.7, Basophils % 0.6, Absolute Granulocytes 9.0 H, Absolute Lymphocytes 1.3, Absolute Monocytes 0.9 H, Absolute Eosinophils 0.4 , Absolute Basophils 0.1 12/29/17 2000: Lactic Acid 1.3, Troponin I < 0.01 Assessment/Plan Assessment: A: 32 year old female with a past medical history significant for hypertension, h/o CVA, end-stage renal disease from hypertension previously on peritoneal dialysis with hospitalization with fluid overload, hemodialysis catheter placement complicated by thrombus and CLABSI MSSA bacteremia, negative AARON for vegatations and complete four week course of Ancef after hemodialysis in 02/2017 presents with a syncopal episode after hemodialysis. She is leaving AMA. We will discharge with clindamycin 300 mg 3 times a day for a week. #Syncope: Trop <.01, .02 Unable to get 3rd trop as she was a hard stick head CT/cervical spine: No acute intracranial pathology. Nonspecific patchy areas of low-density change in the cerebral white matter again visible which may be due to chronic microangiopathy. Encephalomalacia in the right basal ganglia and left occipital lobe from prior infarcts. -f/u orthostatics -f/u cardiology outpatient #Paronychia: Patient had low grade fever without leukocytosis -cont cefazolin -f/u platics consult #ESRD on HD: -Nephrology consultation for hemodialysis -MWF dialysis #HTN: -Continue norvasc, hydralazine, labetalol, losartan #History of CVA: Not on aspirin or statin Was previously on eliquis for DVT, unclear when medication was stopped 10/2017? #Anxiety -cont xanax -check CT programming intern tomorrow Renal dialysis diet DVT ppx-heparin 5000 units subcutaneous q8h Full code Problem List: 1. Cellulitis 2. ESRD (end stage renal disease) on dialysis 3. 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 Was in her usual state of health, had a normal dialysis, then 2 hours later passed out on her couch with no memory of what happened. She also had a mild fever 100.4, and has left 4th finger erythema and swelling consistent with cellulitis. She is sleepy this morning but otherwise well, only complaint is finger pain. 1. Syncope and collapse 2. Left fourth finger distal cellulitis 3. ESRD on HD Plan - Patient wishes to leave AMA and will go to her own dialysis center later today - Patient was not on Eliquis when she came in - Outpatient nephrology and cardiology follow up - Continue home medications
--- NOTE | 2017-12-30 10:57 | PN- Cardiology ---
Subjective Subjective: Feeling well. No chest pain. No palpitations. No lightheadedness or dizziness. No nausea or vomiting. No significant arrhythmias noted overnight. Not orthostatic. Objective Vital Signs and I&Os Vital Signs Date Time Temp Pulse Resp B/P B/P Pulse O2 O2 Flow FiO2 Mean Ox Delivery Rate 12/31 643 98.8 73 20 146/88 95 12/29 2220 98.6 68 21 150/90 96 12/29 2216 68 150/90 12/29 2215 68 150/90 12/29 1635 66 130/80 12/29 1635 66 130/80 12/29 1630 66 130/80 12/29 1600 Room Air 12/29 1433 99.2 67 20 142/78 95 Room Air 12/29 1346 68 20 136/90 97 Room Air Intake & Output 12/30 0800 12/30 0000 12/29 1600 12/29 0812/29 0000 Intake Total 120 480 200 Output Total Balance 120 480 200 Intake, Oral 120 480 200 Output, Stool Output, Urine Patient 153 lb 160 lb 160 lb Weight Weight Reported by Patient Measurement Method Physical Exam: Gen: NAD HEENT: normal Lungs: clear to auscultation, normal resp. effort Heart: RRR, S1, S2, no murmurs Abdomen: Soft, nontender, no masses Extremities: No clubbing, cyanosis, or edema. Neuro: Alert and oriented x 3, cranial nerves intact Current Medications: Current Medications Sig/Bryan Start time Last Medication Dose Route Stop Time Status Admin Alprazolam 0.5 MG DAILY NEEDED PRN 12/29 1630 AC 12/29 PO 01/05 1629 2216 Amlodipine Besylate 10 MG DAILY 12/29 1000 AC 12/29 PO 1029 Cefazolin Sodium 500 MG DAILY@0600 12/29 0600 AC 12/30 IV 0631 Heparin Sodium 5,000 UNIT Q8 12/29 0600 AC (Porcine) SC Hydralazine HCl 100 MG TID 12/29 1000 AC 12/29 PO 2216 Labetalol HCl 300 MG TID 12/29 1000 AC 12/29 PO 2215 Lidocaine/Prilocaine 1 UDAY DAILY NEEDED PRN 12/30 1045 AC TOP Losartan Potassium 100 MG DAILY 12/29 1000 AC 12/29 PO 1029 Results Last 48 Hrs of Labs/Mics: Laboratory Tests 12/30/17 0630: Anion Gap 18 H, Estimated GFR 5 L, BUN/Creatinine Ratio 4.3 L, Vitamin B12 839, TSH 0.571, CBC w Diff NO MAN DIFF REQ, RBC 3.90 L, MCV 96.2, MCH 31.5 H, MCHC 32.7 L, RDW 17.4 H, MPV 8.1, Gran % 77.1 H, Lymphocytes % 11.0 L, Monocytes % 7.6, Eosinophils % 3.7, Basophils % 0.6, Absolute Granulocytes 9.0 H, Absolute Lymphocytes 1.3, Absolute Monocytes 0.9 H, Absolute Eosinophils 0.4 , Absolute Basophils 0.1 12/29/171999: Lactic Acid 1.3, Troponin I < 0.01 12/28/172221: Troponin I 0.02 12/28/171946: Troponin I Cancelled 12/28/17 1930: Anion Gap 16, Estimated GFR 8 L, BUN/Creatinine Ratio 3.7 L, Glucose 97, Calcium 8.8, Total Bilirubin 0.7, AST 8 L, ALT 18, Alkaline Phosphatase 96, Troponin I < 0.01, Total Protein 7.9, Albumin 4.5, Globulin 3.4, Albumin/ Globulin Ratio 1.3, Total Beta HCG NEGATIVE, CBC w Diff NO MAN DIFF REQ, RBC 4.16 L, MCV 96.2, MCH 31.4 H, MCHC 32.6 L, RDW 17.4 H, MPV 7.3 L, Gran % 77.5 H, Lymphocytes % 10.1 L, Monocytes % 9.9 H, Eosinophils % 2.3, Basophils % 0.2, Absolute Granulocytes 6.6 H, Absolute Lymphocytes 0.9 L, Absolute Monocytes 0.8 H, Absolute Eosinophils 0.2, Absolute Basophils 0 Assessment/Plan Assessment/Plan Assessment: 1. Syncope. No arrhythmias seen on telemetry. Not orthostatic 2. End-stage renal disease on dialysis 3. Finger cellulitis 4. hypertension 5. History of prior stroke Plan: * Continue current medications * Echocardiogram pending * Follow up with Dr. Mariee after discharge Continue telemetry? Yes
--- NOTE | 2017-12-30 11:13 | Patient Discharge Instructions ---
Discharge Instructions General Discharge Information Special Instructions: Please follow-up with your primary care physician. Please get your dialysis today. Acute Coronary Syndrome Inclusion Criteria At DC or during hospital stay patient has or had the following: ACS DIAGNOSIS No Discharge Core Measures Meds if any: Prescribed or Continued at Discharge Meds if any: NOT Prescribed or Continued at Discharge Congestive Heart Failure Inclusion Criteria At DC or during hospital stay patient has or had the following: CHF DIAGNOSIS No Discharge Core Measures Meds if any: Prescribed or Continued at Discharge Meds if any: NOT Prescribed or Continued at Discharge Cerebrovascular accident Inclusion Criteria At DC or during hospital stay patient has or had the following: CVA/TIA Diagnosis No Discharge Core Measures Meds if any: Prescribed or Continued at Discharge Meds if any: NOT Prescribed or Continued at Discharge Venous thromboembolism Inclusion Criteria VTE Diagnosis No VTE Type NONE VTE Confirmed by (Test) NONE Discharge Core Measures - Per Current guidelines, there needs to be overlap - treatment for the first 5 days of Warfarin therapy. - If discharged on Warfarin prior to 5 days of - overlap therapy, the patient will need to be - assessed for post discharge needs including - *Post discharge parental anticoagulation - *Warfarin and/or parental anticoagulation education - *Follow up date to check INR post discharge At least 5 days overlap therapy as Inpatient No Meds if any: Prescribed or Continued at Discharge Note: Overlap Therapy is Warfarin and Anticoagulant Meds if any: NOT Prescribed or Continued at Discharge
[2017-12-30] MEDS ORDERED: ELIQUIS5 M1 PO (11:25)
[2017-12-30] MEDS ORDERED: CLINDAMYCIN HC300 M1 PO (11:41)
--- NOTE | 2017-12-30 11:45 | Event Note ---
Event Note Event Note: S: Patient once leave AMA. She does not want dialysis here. B: Patient admitted for syncope, cellulitis of her left fourth finger, end-stage renal disease on dialysis A/R: Tried convincing her twice to stay however she states she does not want her dialysis to be done here. She has a pending dialysis spot at the [facility] in [place] for 3 PM. She understands the risk of leaving and possible worsening infection/necrosis of her left fourth finger. Pending plastic surgery consult. She was discharged with clindamycin 300mg TID x1 week. She was advised to attending her dialysis session today and to follow-up with her PCP.
--- NOTE | 2017-12-31 17:50 | Discharge Summary ---
Hospital Course Allergies: Coded Allergies: Iodinated Contrast- Oral and IV Dye (Iodinated Contrast Media - Oral and) ( Intermediate, HIVES AND SWELLING 12/21/16) morphine (Intermediate, HIVES 12/21/16) Penicillins (RASH 12/21/16) hydroxyzine (PER PT UNKNOWN 12/21/16) lisinopril (ANGIODEMA 12/21/16) LEIDA Inhibitors (ANGIODEMA 12/21/16) Discharge Instructions Medications at Discharge Discharge Medications: Stop taking the following medications: Apixaban (Eliquis) 5 MG TABLET ORAL TWICE DAILY Qty = 60 Continue taking these medications: Epoetin Carlos (Epogen) 10,000 UNIT/ML VIAL 10,000 Unit Inject into fatty tissue EVERY 2 WEEKS Comments: Last Taken: NOT GIVEN IN HOSPITAL Time: Losartan (Cozaar) 100 MG TABLET 1 Tablet ORAL DAILY Comments: Last Taken: 12/28/17 Time: 1030 AM Calcium (Elemental-Fr Calcarb) (Calcium Carbonate) 500 MG/5ML ORAL.SUSP 20 Milliliters ORAL TWICE DAILY Comments: NOT GIVEN IN HOSPITAL Alprazolam (Xanax) 0.5 MG TABLET 1 Tablet ORAL DAILY NEEDED as needed for ANXIETY Comments: Last Taken: 12/30/17 Time: 10 PM Hydralazine HCl (Hydralazine HCl) 100 MG TABLET 1 Tablet ORAL THREE TIMES DAILY Comments: Last Taken: 12/28/17 Time: 10 PM Ondansetron HCl (Zofran) 4 MG TABLET 1 Tablet ORAL Every 6-8 Hours as Needed as needed for NAUSEA Comments: Last Taken: NOT GIVEN IN HOSPITAL Labetalol HCl (Labetalol HCl) 300 MG TABLET 1 Tablet ORAL THREE TIMES DAILY Comments: Last Taken: 12/28/17 Time: 10 PM Amlodipine Besylate (Amlodipine Besylate) 10 MG TABLET 1 Tablet ORAL DAILY Comments: Last Taken: 12/28/17 Time: 1030 AM Start taking the following new medications: Clindamycin HCl (Clindamycin HCl) 300 MG CAPSULE 1 Capsule ORAL THREE TIMES DAILY Qty = 21 No Refills
== END 2017-12-30 12:00 | disposition left against medical advice (07) ==
LOC: ERH 18:59 → ERHI 23:55 → EDBEDREQ 12-29 09:53 → ENRESERV 12-29 13:15 → ENTRNSPT 12-29 13:59 → EDTRNSPT 12-29 14:10 → EDTRNSPTSTS 12-29 14:10 → 1NO 12-29 14:17 → CMPTRNSPT 12-29 14:21 → ENPENDDIS 12-30 11:33 → 1NO 12-30 12:00
PROVIDERS: Emergency Medicine
DX: R55 Syncope and collapse (principal); I12.0 Hypertensive chronic kidney disease with stage 5 chronic kidney disease or end stage renal disease; N18.6 End stage renal disease; Z99.2 Dependence on renal dialysis; Z86.73 Personal history of transient ischemic attack (TIA), and cerebral infarction without residual deficits; F41.9 Anxiety disorder, unspecified; L03.012 Cellulitis of left finger; J45.909 Unspecified asthma, uncomplicated; H35.039 Hypertensive retinopathy, unspecified eye; E78.5 Hyperlipidemia, unspecified; I34.0 Nonrheumatic mitral (valve) insufficiency; M54.30 Sciatica, unspecified side; E21.3 Hyperparathyroidism, unspecified; E66.9 Obesity, unspecified; D63.1 Anemia in chronic kidney disease
CPT/HCPCS: 36592; 71045; 82436; 87147; 93005; 93010; 96374; 96376; 99291; J0690; J1644; J3490

== ENCOUNTER 2018-03-08 17:12 | Emergency (ER) | payer OTHER ==
[~2018-03-08] VITALS: Ht 154.9 cm; Wt 68.0 kg
[~2018-03-08 17:12] MED LIST changes: +CLINDAMYCIN HC300 M1 PO; +ELIQUIS5 M1 PO
--- NOTE | 2018-03-08 17:34 | ED DYSPNEA/ASTHMA COMPLAINT ---
History of Present Illness General Chief Complaint: Dyspnea (COPD, CHF, Other) Stated Complaint: SUDDEN ONSET SOB, HTN Source: patient, old records Exam Limitations: no limitations Allergies Coded Allergies: Iodinated Contrast- Oral and IV Dye (Iodinated Contrast Media - Oral and) ( Intermediate, HIVES AND SWELLING 12/21/16) morphine (Intermediate, HIVES 12/21/16) Penicillins (RASH 12/21/16) hydroxyzine (PER PT UNKNOWN 12/21/16) lisinopril (ANGIODEMA 12/21/16) LEIDA Inhibitors (ANGIODEMA 12/21/16) Reconcile Medications Alprazolam (Xanax) 0.5 MG TABLET 1 TAB PO DAILY NEEDED PRN ANXIETY ( Reported) Amlodipine Besylate 10 MG TABLET 1 TAB PO DAILY BP (Reported) Calcium (Elemental-Fr Calcarb) (Calcium Carbonate) 500 MG/5ML ORAL.SUSP 20 ML PO BID SUPPLEMENT (Reported) Clindamycin HCl 300 MG CAPSULE 1 CAP PO TID CELLULITIS Epoetin Carlos (Epogen) 10,000 UNIT/ML VIAL 10,000 UNIT SC Q2W ANEMIA (Reported ) Hydralazine HCl 100 MG TABLET 1 TAB PO TID HTN (Reported) Labetalol HCl 300 MG TABLET 1 TAB PO TID HTN (Reported) Losartan (Cozaar) 100 MG TABLET 1 TAB PO DAILY HEART (Reported) Ondansetron HCl (Zofran) 4 MG TABLET 1 TAB PO Q6-8P PRN NAUSEA (Reported) Triage Note: BP BIBA FROM HOME S/P SUDDEN ONSET OF SOB AFTER DIALYSIS TREATMENT SATTING 100% ON NON-REBREATHER. ALSO HYPERTENSIVE. PER PT LAST BP AT DIALYSIS WAS 263/140. BP ON ARRIVAL WAS 212/110 4L REMOVED AT DIALYSIS. REPORTING DIZZINESS WITH MILD BLURRED VISION AND HEADACHE 05/06. DENIES CP. ANGELITA HAMMOND AT BEDSIDE Triage Nurses Notes Reviewed? yes Onset: Abrupt Duration: hour(s): (3-4), constant, continues in ED Timing: single episode today Severity: moderate, severe Activities at Onset: none Prior Episodes/Possible Cause: occasional episodes Associated Symptoms: anxiety, lightheadedness, SOB, BLURRED VISION LMP (ages 10-50): unknown : No Patient currently breastfeeds: No HPI: 32-year-old female with multiple medical problems including end-stage renal on dialysis, CVA, hypertension, hypertensive retinopathy, chronic back pain, anemia brought in by AMBULANCE for evaluation of shortness of breath and hypertension. Patient reports that she completed dialysis today and had 4 L removed. She states that she began to feel "funny" after dialysis. She states her blood pressure was elevated to 200s over 100s after she completed dialysis. She is on multiple antihypertensives which she's been taking as directed. She states that she developed headache with dizziness and blurred vision and shortness of breath. She reports that this has usually feels when her blood pressure is elevated. She denies chest pain worsening lower extremity edema hemoptysis fever nausea vomiting abdominal pain. There is been no new medications or changes in her medications. Currently she reports a headache that is an 8 out of 10. She is not taking any pain medicine. She was placed on oxygen via nonrebreather and she reports some improvement after this. (Ahsan GOLDSTEIN,Albaro) Vital Signs & Intake/Output Vital Signs & Intake/Output Vital Signs Date Time Temp Pulse Resp B/P B/P Pulse O2 O2 Flow FiO2 Mean Ox Delivery Rate 03/08 2046 80 18 172/104 96 Room Air 03/08 1832 80 172/92 03/08 1800 95 Nasal 2.0L Cannula 03/08 1718 98.3 76 18 212/110 100 Non 100% ReBreather ED Intake and Output 03/09 0000 03/08 1200 Intake Total 0 Output Total Balance 0 Intake, Oral 0 Patient 150 lb Weight Weight Reported by Patient Measurement Method (Lisset COTA,Deny Sullivan) Past History Medical History Any Pertinent Medical History? 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 No (Albaro Zaman) Review of Systems Review of Systems Constitutional: Reports: no symptoms. EENTM: Reports: no symptoms. Respiratory: Reports: see HPI, short of breath. Cardiovascular: Reports: no symptoms. GI: Reports: no symptoms. Genitourinary: Reports: no symptoms. Musculoskeletal: Reports: no symptoms. Skin: Reports: no symptoms. Neurological/Psychological: Reports: see HPI, headache. Hematologic/Endocrine: Reports: no symptoms. Immunologic/Allergic: Reports: no symptoms. All Other Systems: Reviewed and Negative (Albaro Zaman) Physical Exam Physical Exam General Appearance: well developed/nourished, no apparent distress, alert, awake Head: atraumatic, normal appearance Eyes: Bilateral: normal appearance, PERRL, EOMI. Ears, Nose, Throat: hearing grossly normal Neck: normal inspection, supple, full range of motion Respiratory: normal breath sounds, chest non-tender, no respiratory distress, lungs clear Cardiovascular: regular rate/rhythm, normal peripheral pulses Peripheral Pulses: 2+ radial (R), 2+ radial (L) Gastrointestinal: normal bowel sounds, soft, non-tender, no organomegaly Extremities: normal inspection, normal range of motion, no edema Neurologic/Psych: no motor/sensory deficits, awake, alert, oriented x 3, normal gait Skin: intact, normal color, warm/dry Lymphatic: no anterior cervical jazmin Core Measures ACS in differential dx? No CVA/TIA Diagnosis No Sepsis Present: No Sepsis Focused Exam Completed? No (Albaro Zaman) Progress Differential Diagnosis: asthma, AMI, bronchitis, CHF, COPD, pulmonary embolism, pneumonia, pneumothorax, rib fracture, unstable angina Diagnostic Imaging: Viewed by Me: Radiology Read, CT Scan, Ultrasound. Discussed w/RAD: Radiology Read, CT Scan, Ultrasound. Radiology Impression: PATIENT: TERI BORRERO PRESENT AGE: 32 PATIENT ACCOUNT NO: [id number] : 87 LOCATION: [facility] ORDERING PHYSICIAN: Albaro GOLDSTEIN SERVICE DATE: 03/08/18 EXAM TYPE: US - US-EXT BILAT VENOUS DOPPLER EXAMINATION: US TRIPLEX OF LOWER EXTREMITIES, BILATERAL CLINICAL INFORMATION: Bilateral lower extremity edema. Shortness of breath. COMPARISON: None TECHNIQUE: Color-flow triplex imaging with spectral analysis and compression Doppler were performed on the lower extremities. FINDINGS: Respiratory variation, normal compression and augmented flow are noted throughout the lower extremities. The visualized common femoral vein, superficial femoral vein, profunda femoral vein, popliteal vein and midcalf peroneal and posterior tibial venous segments show no evidence of deep venous thrombosis. There is no Lockhart's cyst. The subcutaneous soft tissues appear edematous. IMPRESSION: No evidence of deep venous thrombosis involving either lower extremity. DICTATED BY: Anette Bonilla MD DATE/TIME DICTATED:03/08/182023 [employer] OFFICER:KANDICE DATE/TIME TRANSCRIBED:03/08/182023 CONFIDENTIAL, DO NOT COPY WITHOUT APPROPRIATE AUTHORIZATION. <Electronically signed in Other Vendor System> SIGNED BY: Anette Bonilla MD 03/08/182027, PATIENT: TERI BORRERO PRESENT AGE: 32 PATIENT ACCOUNT NO: [id number] : 87 LOCATION: [facility] ORDERING PHYSICIAN: Albaro GOLDSTEIN SERVICE DATE: 03/08/18 EXAM TYPE: CAT - CT HEAD WO IV CONTRAST EXAMINATION: CT HEAD WITHOUT CONTRAST CLINICAL INFORMATION: Headaches, dizziness and hypertensive. Assess for intracranial hemorrhage or mass. COMPARISON: CT scan of the head 12/28/2017. TECHNIQUE: Contiguous axial imaging was performed from the skull base to vertex without intravenous administration of contrast. Images are degraded by patient motion artifact. DLP: 773.75 mGy-cm FINDINGS: There is no evidence of acute intracranial hemorrhage or territorial infarction. No abnormal mass effect or midline shift is seen. Granado to white matter differentiation is well preserved. No extra-axial fluid collections are identified. The study redemonstrates the linear encephalomalacia in the right basal ganglia and right external capsule, consistent with chronic ischemia. There is stable ex vacuo dilatation of the anterior horn of the body of the left lateral ventricle. The ventricles and sulci elsewhere appear normal. The study redemonstrates the area of low attenuation in the left occipital lobe, consistent with a chronic infarct. There are scattered areas of low-attenuation in the periventricular white matter consistent with microvascular ischemic changes. There are atheromatous calcifications in the anterior and posterior circulation. The soft tissues are unremarkable. There are no acute osseous findings. The visualized mastoid air cells and paranasal sinuses are well- aerated. The nasal septum is deviated to the right. IMPRESSION: 1. There are no acute bleeds or territorial infarcts. There are stable sequelae of old infarcts in the right basal ganglia and right external capsule, as well as sequelae of an old infarct in the left occipital lobe. 2. There are no intracranial masses, fluid collections or midline shift. DICTATED BY: Jerman Richardson MD DATE/TIME DICTATED:03/08/182009 [employer] OFFICER:KANDICE DATE/TIME TRANSCRIBED:2009 CONFIDENTIAL, DO NOT COPY WITHOUT APPROPRIATE AUTHORIZATION. < Electronically signed in Other Vendor System> SIGNED BY: Jerman Richardson MD 2024, PATIENT: TERI BORRERO PRESENT AGE: 32 PATIENT ACCOUNT NO: [id number] : 87 LOCATION: [facility] ORDERING PHYSICIAN: Albaro GOLDSTEIN SERVICE DATE: 03/08/18 EXAM TYPE: RAD - XRY- PORTABLE CHEST XRAY EXAMINATION: XR PORTABLE CHEST CLINICAL INFORMATION: Shortness breath. Hypertensive. COMPARISON: Chest radiograph 12/28/2017. TECHNIQUE: Portable frontal view of the chest was obtained. FINDINGS: Low lung volumes with mild elevation of the right hemidiaphragm. Bibasilar subsegmental atelectasis. Mild central vascular congestion and mild curly B-lines suggestive of interstitial edema. No pleural effusion or pneumothorax. Top normal heart size. Calcified aorta. IMPRESSION: Low lung volumes with mild interstitial edema and central vascular congestion. DICTATED BY: Anette Bonilla MD DATE/TIME DICTATED:03/08/182027 [employer] OFFICER:KANDICE DATE/TIME TRANSCRIBED:2027 CONFIDENTIAL, DO NOT COPY WITHOUT APPROPRIATE AUTHORIZATION. < Electronically signed in Other Vendor System> SIGNED BY: Anette Bonilla MD 03/08/182033 Initial ED EKG: normal sinus rhythm, st CHANGES IN V2 v5 AND v6 (Albaro Zaman) Plan of Care: Orders Procedure Date/time Status EKG 03/08 1733 Active TROPONIN LEVEL 03/08 1732 Complete HUMAN BETA HCG SCREEN 03/08 1732 Complete COMPREHENSIVE METABOLIC PANEL 03/08 1732 Complete CBC WITHOUT DIFFERENTIAL 03/08 1732 Complete B-TYPE NATRIURETIC PEP (BNP) 03/08 1732 Complete Laboratory Tests 03/08/18 1750: Anion Gap 16, Estimated GFR 8 L, BUN/Creatinine Ratio 4.0 L, Glucose 119 H, Calcium 8.9, Total Bilirubin 0.9, AST 10 L, ALT 16, Alkaline Phosphatase 109, Troponin I 0.03, [id number]-J-[id number] Pept > 50534 H, Total Protein 8.2, Albumin 4.6, Globulin 3.6, Albumin/Globulin Ratio 1.3, Total Beta HCG NEGATIVE, CBC w Diff NO MAN DIFF REQ, RBC 3.98 L, MCV 95.9, MCH 31.7 H, MCHC 33.1, RDW 15.4 H , MPV 8.3, Gran % 86.9 H, Lymphocytes % 6.8 L, Monocytes % 4.4, Eosinophils % 1.6, Basophils % 0.3, Absolute Granulocytes 6.3, Absolute Lymphocytes 0.5 L, Absolute Monocytes 0.3, Absolute Eosinophils 0.1, Absolute Basophils 0 03/08/181731: Urine Color Cancelled, Urine Clarity Cancelled, Urine pH Cancelled, Ur Specific [place] Cancelled, Urine Protein Cancelled, Urine Ketones Cancelled, Urine Nitrite Cancelled, Urine Bilirubin Cancelled, Urine Urobilinogen Cancelled, Ur Leukocyte Esterase Cancelled, Ur Microscopic Cancelled, Urine Hemoglobin Cancelled, Urine Glucose Cancelled Patient seen and evaluated. She is here with acute onset of headache shortness of breath and elevated blood pressure. She was dialyzed today. States that she began to feel sick after dialysis. She denies ever having any chest pain. Patient arrives with a blood pressure of 212/110. She is satting 100% on nonrebreather. Initial EKG is unchanged labs chest x-ray ordered patient medicated initially with IV hydralazine and IV Tylenol. Patient was also given a milligram of IV Ativan for anxiety. Blood pressure improved to 170 systolic over 90s. Patient reports complete resolution of symptoms after Ativan. Her blood work does not show much of a significant change. Her BNP is elevated but has been elevated in the past. Her chest x-ray does show some evidence of fluid overload however she just got done with dialysis today and is currently asymptomatic. She is requesting to go home. CT scan of the head is negative bilateral lower extremity ultrasound negative. Her lungs are clear to auscultation. Patient will be discharged home with instructions to continue all medications as directed. Follow up with cardiology. Case discussed with Dr. Darling he agrees. (Albaro Zaman) (Deny Darling MD) Departure Departure Disposition: HOME OR SELF CARE Condition: Stable Clinical Impression Primary Impression: Elevated blood pressure reading with diagnosis of hypertension Secondary Impressions: Dyspnea Qualifiers: Dyspnea type: unspecified Qualified Code: R06.00 - Dyspnea, unspecified Referrals: Ilene Navarro MD, MD, Louis (PCP/Family) Additional Instructions: CONTINUE TO TAKE ALL MEDICATIONS DIRECTED. fOLLOW-UP WITH dR. NAVARRO FOR RECHECK in a few days. Monitor symptoms closely return to the emergency department with any concerns. Departure Forms: Customer Survey General Discharge Information (Albaro Zaman) PA/SHEET COMBINING OPERATOR Co-Sign Statement Statement: ED Attending supervision documentation- [] I saw and evaluated the patient. I have also reviewed all the pertinent lab results and diagnostic results. I agree with the findings and the plan of care as documented in the PA's/SHEET COMBINING OPERATOR's documentation. [X] I have reviewed the ED Record and agree with the PA's/SHEET COMBINING OPERATOR's documentation. [] Additions or exceptions (if any) to the PAs/SHEET COMBINING OPERATOR's note and plan are summarized below: [] (Lisset COTA,Deny Sullivan) Critical Care Note Critical Care Note Critical Care Time: non-applicable (Albaro Zaman)
[2018-03-08 18:11] LABS: ABSOLUTE BASOPHIL COUNT 0 /CUMM (0.0-0.2); ABSOLUTE EOSINOPHIL COUNT 0.1 /CUMM (0.0-0.7); ABSOLUTE GRANULOCYTE CT 6.3 /CUMM (1.4-6.5); ABSOLUTE LYMPH COUNT 0.5 /CUMM (1.2-3.4); ABSOLUTE MONOCYTE COUNT 0.3 /CUMM (0.10-0.60); BASOPHIL % 0.3 % (0.0-2.0); EOSINOPHIL % 1.6 % (0-5); HEMATOCRIT 38.2 % (37-47); MEAN CORPUSCULAR HGB 31.7 PG (27.0-31.0); MEAN CORPUSCULAR HGB CONC 33.1 G/DL (33.0-37.0); MEAN CORPUSCULAR VOLUME 95.9 FL (81.0-99.0); MEAN PLATELET VOLUME 8.3 FL (7.4-10.4); PLATELET COUNT 217 /CUMM (130-400); RBC DISTRIBUTION WIDTH 15.4 % (11.5-14.5); RED BLOOD CELL CT 3.98 /CUMM (4.20-5.40); WHITE BLOOD CELL COUNT 7.3 /CUMM (4.8-10.8)
[2018-03-08 18:34] LABS: GRANULOCYTE % 86.9 % (42.2-75.2)
--- NOTE | 2018-03-08 20:25 | CT SCAN REPORT ---
EXAMINATION: CT HEAD WITHOUT CONTRAST CLINICAL INFORMATION: Headaches, dizziness and hypertensive. Assess for intracranial hemorrhage or mass. COMPARISON: CT scan of the head 12/28/2017. TECHNIQUE: Contiguous axial imaging was performed from the skull base to vertex without intravenous administration of contrast. Images are degraded by patient motion artifact. DLP: 773.75 mGy-cm FINDINGS: There is no evidence of acute intracranial hemorrhage or territorial infarction. No abnormal mass effect or midline shift is seen. Granado to white matter differentiation is well preserved. No extra-axial fluid collections are identified. The study redemonstrates the linear encephalomalacia in the right basal ganglia and right external capsule, consistent with chronic ischemia. There is stable ex vacuo dilatation of the anterior horn of the body of the left lateral ventricle. The ventricles and sulci elsewhere appear normal. The study redemonstrates the area of low attenuation in the left occipital lobe, consistent with a chronic infarct. There are scattered areas of low-attenuation in the periventricular white matter consistent with microvascular ischemic changes. There are atheromatous calcifications in the anterior and posterior circulation. The soft tissues are unremarkable. There are no acute osseous findings. The visualized mastoid air cells and paranasal sinuses are well-aerated. The nasal septum is deviated to the right. IMPRESSION: 1. There are no acute bleeds or territorial infarcts. There are stable sequelae of old infarcts in the right basal ganglia and right external capsule, as well as sequelae of an old infarct in the left occipital lobe. 2. There are no intracranial masses, fluid collections or midline shift.
--- NOTE | 2018-03-08 20:28 | ULTRASOUND REPORT ---
EXAMINATION: US TRIPLEX OF LOWER EXTREMITIES, BILATERAL CLINICAL INFORMATION: Bilateral lower extremity edema. Shortness of breath. COMPARISON: None TECHNIQUE: Color-flow triplex imaging with spectral analysis and compression Doppler were performed on the lower extremities. FINDINGS: Respiratory variation, normal compression and augmented flow are noted throughout the lower extremities. The visualized common femoral vein, superficial femoral vein, profunda femoral vein, popliteal vein and midcalf peroneal and posterior tibial venous segments show no evidence of deep venous thrombosis. There is no Lockhart's cyst. The subcutaneous soft tissues appear edematous. IMPRESSION: No evidence of deep venous thrombosis involving either lower extremity.
--- NOTE | 2018-03-08 20:34 | RADIOLOGY REPORT ---
EXAMINATION: XR PORTABLE CHEST CLINICAL INFORMATION: Shortness breath. Hypertensive. COMPARISON: Chest radiograph 12/28/2017. TECHNIQUE: Portable frontal view of the chest was obtained. FINDINGS: Low lung volumes with mild elevation of the right hemidiaphragm. Bibasilar subsegmental atelectasis. Mild central vascular congestion and mild curly B-lines suggestive of interstitial edema. No pleural effusion or pneumothorax. Top normal heart size. Calcified aorta. IMPRESSION: Low lung volumes with mild interstitial edema and central vascular congestion.
[2018-03-08 20:46] VITALS: BP 172/104
== END 2018-03-08 21:48 ==
LOC: ERH 17:12
PROVIDERS: Physician Assistant Medical
DX: I10 Essential (primary) hypertension (principal); R06.00 Dyspnea, unspecified
CPT/HCPCS: 71045; 93005; 93010; 93970; 96374; 96375; J0131; J0360

== ENCOUNTER 2018-04-25 02:28 | Inpatient (IN) | payer OTHER ==
[~2018-04-25] VITALS: Ht 154.9 cm; Wt 74.9 kg
--- NOTE | 2018-04-25 02:35 | ED CARDIAC/CP/PALPITATIONS ---
See Addendum History of Present Illness General Chief Complaint: Chest Pain Stated Complaint: BIBA CP Source: patient, old records, EMS Exam Limitations: no limitations Vital Signs & Intake/Output Vital Signs & Intake/Output Vital Signs Date Time Temp Pulse Resp B/P B/P Pulse O2 O2 Flow FiO2 Mean Ox Delivery Rate 04/25 0623 97.9 68 18 142/88 97 Room Air 04/25 0507 98.1 68 18 145/86 98 Nasal 2.0L Cannula 04/25 0428 69 16 148/91 99 Nasal 2.0L Cannula 04/25 0338 97.9 71 20 213/114 04/25 0336 97.9 71 20 213/114 04/25 0330 71 213/114 04/25 0307 218/100 04/25 0306 97.9 64 20 218/100 04/25 0250 Nasal 2.0L Cannula 04/25 0243 97.9 64 20 218/100 97 Room Air Allergies Coded Allergies: Iodinated Contrast- Oral and IV Dye (Iodinated Contrast Media - Oral and) ( Intermediate, HIVES AND SWELLING 12/21/16) morphine (Intermediate, HIVES 12/21/16) Penicillins (RASH 12/21/16) hydroxyzine (PER PT UNKNOWN 12/21/16) lisinopril (ANGIODEMA 12/21/16) LEIDA Inhibitors (ANGIODEMA 12/21/16) Reconcile Medications Alprazolam (Xanax) 0.5 MG TABLET 1 TAB PO DAILY NEEDED PRN ANXIETY ( Reported) Amlodipine Besylate 10 MG TABLET 1 TAB PO DAILY BP (Reported) Calcium (Elemental-Fr Calcarb) (Calcium Carbonate) 500 MG/5ML ORAL.SUSP 20 ML PO BID SUPPLEMENT (Reported) Clindamycin HCl 300 MG CAPSULE 1 CAP PO TID CELLULITIS Epoetin Carlos (Epogen) 10,000 UNIT/ML VIAL 10,000 UNIT SC Q2W ANEMIA (Reported ) Hydralazine HCl 100 MG TABLET 1 TAB PO TID HTN (Reported) Labetalol HCl 300 MG TABLET 1 TAB PO TID HTN (Reported) Losartan (Cozaar) 100 MG TABLET 1 TAB PO DAILY HEART (Reported) Ondansetron HCl (Zofran) 4 MG TABLET 1 TAB PO Q6-8P PRN NAUSEA (Reported) Oxycodone HCl/Acetaminophen (Percocet 5-325 MG Tablet) 5 MG-325 MG TABLET 1 TAB PO 4XDP PRN PAIN six...[id number] Triage Nurses Notes Reviewed? yes Onset: Abrupt Duration: hour(s): Timing: recent history Quality/Severity: moderate Location: central Radiation: no radiation Activities at Onset: none Associated Symptoms: parasternal chest wall pain HPI: 32 yo woman presents with 1 day history of parasternal chest wall pain and elevated blood pressure. She notes the pain is worse with palpation. She denies shortness of breath, radiation, chills, cough, wheezing. She is otherwise well. (Diogenes COTA,Mendez Fajardo) Past History Travel History Traveled to [place] past 21 day No Medical History Any Pertinent Medical History? 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 infarct left [employer] ARCHIT[employer] stroke (March 2015) EENT: hypertensive retinopathy Cardiovascular: hypertension, hyperlipidemia, mitral regurgitation, LVH Respiratory: asthma, pneumonia Gastrointestinal: lower GI bleed (November 2016), duodenitis gastritis Hepatic: NONE Renal: ESRD on HD (previously on PD) Musculoskeletal: chronic back pain, sciatica Psychiatric: anxiety Endocrine: hyperparathyroidism (secondary), obesity, LUE DVT Blood Disorders: anemia of CKD left IJ thrombosis after dialysis cathether placement Cancer(s): NONE 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 No (Diogenes COTA,Mendez Fajardo) Review of Systems Review of Systems Constitutional: Reports: no symptoms. EENTM: Reports: no symptoms. Respiratory: Reports: no symptoms. Cardiovascular: Reports: no symptoms. GI: Reports: no symptoms. Genitourinary: Reports: no symptoms. Musculoskeletal: Reports: no symptoms. Skin: Reports: no symptoms. Neurological/Psychological: Reports: no symptoms. Hematologic/Endocrine: Reports: no symptoms. Immunologic/Allergic: Reports: no symptoms. All Other Systems: Reviewed and Negative (Diogenes COTA,Mendez Fajardo) Physical Exam Physical Exam Respiratory: normal breath sounds, no respiratory distress, quiet respiration, lungs clear, parasternal chest wall pain Cardiovascular: regular rate/rhythm Comments: Physical Exam Physical Exam General Appearance: well developed/nourished, no apparent distress Head: atraumatic, normal appearance Eyes: Bilateral: normal appearance. Ears, Nose, Throat: normal pharynx, normal ENT inspection Neck: normal inspection, supple, full range of motion Respiratory: normal breath sounds, no respiratory distress, quiet respiration, lungs clear, see above Cardiovascular: regular rate/rhythm Gastrointestinal: normal bowel sounds, soft, non-tender, no organomegaly Back: normal inspection, normal range of motion Extremities: normal inspection, normal capillary refill, normal range of motion, no edema Neurologic/Psych: no motor/sensory deficits, awake, alert, oriented x 3 Skin: intact, normal color, warm/dry Core Measures ACS in differential dx? No CVA/TIA Diagnosis No Sepsis Present: No Sepsis Focused Exam Completed? No (Diogenes COTA,Mendez Fajardo) Progress Differential Diagnosis: chest wall pain, chf, possible LA/acs Plan of Care: Orders Procedure Date/time Status Renal Dialysis Diet 04/25 L Active ED Holding Orders 04/25 0808 Active Admit to inpatient 04/25 0808 Active Vital Signs 04/25 0808 Active Code Status 04/25 0808 Active TROPONIN LEVEL 04/25 0500 Complete EKG 04/25 0500 Active TROPONIN LEVEL 04/25 0236 Complete HUMAN BETA HCG SCREEN 04/25 0236 Complete COMPREHENSIVE METABOLIC PANEL 04/25 0236 Complete CBC WITHOUT DIFFERENTIAL 04/25 0236 Complete B-TYPE NATRIURETIC PEP (BNP) 04/25 0236 Complete EKG 04/25 0233 Active Current Medications Sig/Bryan Start time Last Medication Dose Stop Time Status Admin Labetalol HCl 300 MG ONCE ONE 04/25 0430 CAN (Trandate) 04/25 0431 Lorazepam 2 MG ONE ONE 04/25 0330 CAN (Ativan) 04/25 0331 Laboratory Tests 04/25/18 0524: Troponin I 0.04 04/25/18 0324: Anion Gap 19 H, Estimated GFR 3 L, BUN/Creatinine Ratio 6.1 L, Glucose 95, Calcium 6.5 L, Total Bilirubin 0.7, AST 10 L, ALT 34, Alkaline Phosphatase 78, Troponin I 0.03, Bdp-E-Ymnlfzolvgf Pept [id number] H, Total Protein 6.2 L, Albumin 3.7, Globulin 2.5, Albumin/Globulin Ratio 1.5, Total Beta HCG NEGATIVE, CBC w Diff NO MAN DIFF REQ, RBC 2.92 L, MCV 95.4, MCH 32.0 H, MCHC 33.6, RDW 14.3, MPV 8.9, Gran % 76.2 H, Lymphocytes % 15.0 L, Monocytes % 4.8, Eosinophils % 3.5, Basophils % 0.5, Absolute Granulocytes 6.7 H, Absolute Lymphocytes 1.3, Absolute Monocytes 0.4, Absolute Eosinophils 0.3, Absolute Basophils 0 Diagnostic Imaging: Viewed by Me: Radiology Read. Discussed w/RAD: Radiology Read. CXR Impression: PATIENT: TERI BORRERO PRESENT AGE: 32 PATIENT ACCOUNT NO: [id number] : 87 LOCATION: [facility], [place] ORDERING PHYSICIAN: Mendez Shetty MD SERVICE DATE: 04/25/18 EXAM TYPE: RAD - XRY-PORTABLE CHEST XRAY EXAMINATION: CHEST 1 VIEW CLINICAL INFORMATION: Chest pain. COMPARISON: March 08, 2018. TECHNIQUE: An AP view of the chest is provided. FINDINGS: The cardiac silhouette is enlarged, though stable. There is moderate diffuse interstitial prominence bilaterally. There are small bilateral pleural effusions with nonspecific bibasilar airspace disease. There is mild thickening of the right minor fissure. The osseous structures are stable. IMPRESSION: Stable cardiomegaly with interval development of moderate vascular congestion. Small bilateral pleural effusions with associated airspace disease. DICTATED BY: Luis Dennison MD DATE/TIME DICTATED:04/25/18431 KIESELGUHR REGENERATOR OPERATOR:KANDICE DATE/TIME TRANSCRIBED:04/25/18431 CONFIDENTIAL, DO NOT COPY WITHOUT APPROPRIATE AUTHORIZATION. <Electronically signed in Other Vendor System> SIGNED BY: Luis Dennison MD 04/25/18434 Initial ED EKG: sinus, biphasic P in v1, no acute changes LVH Repeat EKG: unchanged (Diogenes COTA,Mendez Fajardo) Departure Departure Disposition: HOME OR SELF CARE Condition: Stable Referrals: Erich Damon MD (PCP/Family) Departure Forms: Customer Survey General Discharge Information Prescriptions: Current Visit Scripts Oxycodone HCl/Acetaminophen (Percocet 5-325 MG Tablet) 1 TAB PO 4XDP PRN PAIN #6 TAB six...[id number] Comments 04/25/18, 6:26am... pt resting comfortably, feeling better after blood pressure meds given... she prefers to go home and will have dialysis this afternoon... I counseled her to take her blood pressure medications later this morning... pt encouraged to return if her symptoms recur. 04/25/18, 7:35AM... pt's mother arrived and notes that she does not have a wednesday slot for dialysis... given her dyspnea, chf on xray, pt merits admission for dialysis.... call placed to hospitalist. pt signed out to dr. whitney. (Diogenes COTA,Mendez Fajardo) Departure Clinical Impression Primary Impression: HTN (hypertension) Secondary Impressions: Chest pain, Renal failure Admission Note Spoke With: uLis Nguyễn MD Documentation of Exam: Documentation of any treatments & extenuating circumstances including Concerns Regarding Discharge (functional status, medication knowledge or non-compliance, living conditions, etc.) that warrant an admission rather than observation: [The patient has ongoing chest pain and difficulty breathing. She is therefore being admitted for serial troponins, IV diuresis, nephrology consultation and inpatient dialysis] The patient was signed out to me by Dr. Shetty at 7 AM. (Deny Whitney DO) Critical Care Note Critical Care Note Critical Care Time: non-applicable (Mendez Shetty MD)
[2018-04-25 03:33] LABS: ABSOLUTE BASOPHIL COUNT 0 /CUMM (0.0-0.2); ABSOLUTE EOSINOPHIL COUNT 0.3 /CUMM (0.0-0.7); ABSOLUTE GRANULOCYTE CT 6.7 /CUMM (1.4-6.5); ABSOLUTE LYMPH COUNT 1.3 /CUMM (1.2-3.4); ABSOLUTE MONOCYTE COUNT 0.4 /CUMM (0.10-0.60); BASOPHIL % 0.5 % (0.0-2.0); EOSINOPHIL % 3.5 % (0-5); GRANULOCYTE % 76.2 % (42.2-75.2); HEMATOCRIT 27.8 % (37-47); MEAN CORPUSCULAR HGB CONC 33.6 G/DL (33.0-37.0); MEAN CORPUSCULAR VOLUME 95.4 FL (81.0-99.0); MEAN PLATELET VOLUME 8.9 FL (7.4-10.4); PLATELET COUNT 188 /CUMM (130-400); RBC DISTRIBUTION WIDTH 14.3 % (11.5-14.5); RED BLOOD CELL CT 2.92 /CUMM (4.20-5.40); WHITE BLOOD CELL COUNT 8.8 /CUMM (4.8-10.8)
--- NOTE | 2018-04-25 04:35 | RADIOLOGY REPORT ---
EXAMINATION: CHEST 1 VIEW CLINICAL INFORMATION: Chest pain. COMPARISON: March 08, 2018. TECHNIQUE: An AP view of the chest is provided. FINDINGS: The cardiac silhouette is enlarged, though stable. There is moderate diffuse interstitial prominence bilaterally. There are small bilateral pleural effusions with nonspecific bibasilar airspace disease. There is mild thickening of the right minor fissure. The osseous structures are stable. IMPRESSION: Stable cardiomegaly with interval development of moderate vascular congestion. Small bilateral pleural effusions with associated airspace disease.
[2018-04-25] MEDS ORDERED: PERCOCET 5-3251 EACH PO (06:19)
--- NOTE | 2018-04-25 08:43 | History & Physical ---
Elisha Espinoza 04/25/18 0843: General Information and HPI MD Statement: I have seen and personally examined TERI BORRERO and documented this H& P. The patient is a 32 year old F who presented with a patient stated chief complaint of [chest pain]. Source of Information: patient, old records Exam Limitations: patient is very sleepy History of Present Illness: Patient is a 32-year-old female with past medical history significant for CVA ( ischemic/hemorrhagic), demand ischemia, hypertension, hyperlipidemia, lower GI bleed, end-stage renal disease on hemodialysis Wednesday, chronic back pain, hyperparathyroidism came in with a chief complaint of chest pain yesterday around 1 AM. Patient was very drowsy during the interview and was intermittently falling asleep. Patient states that around yesterday morning, she developed precordial chest pain, 7/10 in intensity, sharp, nonradiating. Patient reported that she was also short of breath at the same time, worsened on exertion. After midnight she was brought into [facility], it was noticed that her systolic blood pressure was elevated to 218/100. Patient states that she has been very stressed recently, which his blood pressure was high. She admits to be taking all her meds and was compliant. Review of system is negative for any headache/dizziness/burning micturition/pain lower extremities. Patient does report of some abdominal pain, unable to obtain further history due to her drowsiness. Spoke with the ER nurse and they say that patient has been this drowsy since 7 AM this morning. Additional information was obtained from her mother, who stated that on Wednesday patient called her and said that she felt really sick. She came to ER however due to the long triage wait, she went home. Last night she called her mother again and stated that her chest feels very tight she was increasingly short of breath, so they called EMS. In route, she was given loading dose of aspirin and 2 tabs of nitroglycerine. Allergies/Medications Allergies: Coded Allergies: Iodinated Contrast- Oral and IV Dye (Intermediate, HIVES AND SWELLING 04/25/18) morphine (Intermediate, HIVES 12/21/16) Penicillins (RASH 12/21/16) hydroxyzine (PER PT UNKNOWN 12/21/16) lisinopril (ANGIODEMA 12/21/16) LEIDA Inhibitors (ANGIODEMA 12/21/16) Home Med list Alprazolam (Xanax) 0.5 MG TABLET 1 TAB PO DAILY NEEDED PRN ANXIETY ( Reported) Amlodipine Besylate 10 MG TABLET 1 TAB PO DAILY BP (Reported) Calcium (Elemental-Fr Calcarb) (Calcium Carbonate) 500 MG/5ML ORAL.SUSP 20 ML PO BID SUPPLEMENT (Reported) Clindamycin HCl 300 MG CAPSULE 1 CAP PO TID CELLULITIS Epoetin Carlos (Epogen) 10,000 UNIT/ML VIAL 10,000 UNIT SC Q2W ANEMIA (Reported ) Hydralazine HCl 100 MG TABLET 1 TAB PO TID HTN (Reported) Labetalol HCl 300 MG TABLET 1 TAB PO TID HTN (Reported) Losartan (Cozaar) 100 MG TABLET 1 TAB PO DAILY HEART (Reported) Ondansetron HCl (Zofran) 4 MG TABLET 1 TAB PO Q6-8P PRN NAUSEA (Reported) Oxycodone HCl/Acetaminophen (Percocet 5-325 MG Tablet) 5 MG-325 MG TABLET 1 TAB PO 4XDP PRN PAIN six...[id number] Past History Travel History Traveled to [place] past 21 day No Medical History Neurological: CVA (multiple ischemic/hemoorhagic), migraine, right basal ganglia lacunar infarct (2012) left basal ganglia lacunar infarct left RN OBGYN stroke (March 2015) EENT: hypertensive retinopathy Cardiovascular: hypertension, hyperlipidemia, mitral regurgitation, LVH Respiratory: asthma, pneumonia Gastrointestinal: lower GI bleed (November 2016), duodenitis gastritis Hepatic: NONE Renal: ESRD on HD (previously on PD) Musculoskeletal: chronic back pain, sciatica Psychiatric: anxiety Endocrine: hyperparathyroidism (secondary), obesity, LUE DVT Blood Disorders: anemia of CKD left IJ thrombosis after dialysis cathether placement Cancer(s): NONE 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) MRSA peritonitis drug fever attributed to vancomycin History of MRSA: Yes History of VRE: No History of CDIFF: No Surgical History Surgical History: , hernia repair-inguinal, parathyroidectomy Past Family/Social History Family History Relations & Conditions if any FATHER FH: CAD (coronary artery disease) FH: HTN (hypertension) FH: stroke grandmother FH: colon cancer SISTER ASD (atrial septal defect) MOTHER FH: diabetes mellitus FH: HTN (hypertension) Psychosocial History Who Do You Live With? child, parent Services at Home: None Primary Language: Mohawk Living Will? yes Functional Ability ADLs Independent: dressing, eating, toileting, bathing. Ambulation: independent IADLs Independent: shopping, housework, finances, food prep, telephone, transportation , medication admin. Review of Systems Review of Systems Constitutional: Reports: see HPI. Exam & Diagnostic Data Last 24 Hrs of Vital Signs/I&O Vital Signs Date Time Temp Pulse Resp B/P B/P Pulse O2 O2 Flow FiO2 Mean Ox Delivery Rate 04/25 0835 98.6 60 18 124/78 98 Nasal 2.0L Cannula 04/25 0623 97.9 68 18 142/88 97 Room Air 04/25 0507 98.1 68 18 145/86 98 Nasal 2.0L Cannula 04/25 0428 69 16 148/91 99 Nasal 2.0L Cannula 04/25 0338 97.9 71 20 213/114 04/25 0336 97.9 71 20 213/114 04/25 0330 71 213/114 04/25 0307 218/100 04/25 0306 97.9 64 20 218/100 04/25 0250 Nasal 2.0L Cannula 04/25 0243 97.9 64 20 218/100 97 Room Air Intake & Output 04/25 1600 04/25 0800 04/25 0000 Intake Total 0 Output Total Balance 0 Intake, Oral 0 Physical Exam General Appearance arousable on voice command and sternal rub Skin No Rashes Sepsis Skin Exam (color): Normal for Ethnicity HEENT Atraumatic, PERRLA Neck Supple Cardiovascular Regular Rate, Normal S1, Normal S2 Lungs Clear to Auscultation, Normal Air Movement Abdomen Normal Bowel Sounds, Soft, No Tenderness Extremities No Edema Sepsis Peripheral Pulse Location: Radial Sepsis Peripheral Pulse Exam: Normal Last 24 Hrs of Labs/Ashwin: Laboratory Tests 04/25/18 0524: Troponin I 0.04 04/25/18 0324: Anion Gap 19 H, Estimated GFR 3 L, BUN/Creatinine Ratio 6.1 L, Glucose 95, Calcium 6.5 L, Total Bilirubin 0.7, AST 10 L, ALT 34, Alkaline Phosphatase 78, Troponin I 0.03, Chy-P-Zynrcoiqdrb Pept [id number] H, Total Protein 6.2 L, Albumin 3.7, Globulin 2.5, Albumin/Globulin Ratio 1.5, Total Beta HCG NEGATIVE, CBC w Diff NO MAN DIFF REQ, RBC 2.92 L, MCV 95.4, MCH 32.0 H, MCHC 33.6, RDW 14.3, MPV 8.9, Gran % 76.2 H, Lymphocytes % 15.0 L, Monocytes % 4.8, Eosinophils % 3.5, Basophils % 0.5, Absolute Granulocytes 6.7 H, Absolute Lymphocytes 1.3, Absolute Monocytes 0.4, Absolute Eosinophils 0.3, Absolute Basophils 0 Assessment/Plan Assessment: Patient is a 32-year-old female with past medical history significant for CVA ( ischemic/hemorrhagic (closed, hypertension, hyperlipidemia, lower GI bleed, end- stage renal disease on hemodialysis Wednesday, chronic back pain, hyperparathyroidism came in with a chief complaint of chest pain yesterday around 1 AM. Patient was very drowsy during the interview and was intermittently falling asleep. Patient states that around yesterday morning, she developed precordial chest pain, 7/10 in intensity, sharp, nonradiating. Patient reported that she was also short of breath at the same time, worsened on exertion. After midnight she was brought into [facility], it was noticed that her systolic blood pressure was elevated to 218/100. Patient states that she has been very stressed recently, which his blood pressure was high. She admits to be taking all her meds and was compliant. Labs and vitals as above Chest x-ray- vascular congestion, small bilateral pleural effusions Echo from February 2018- Ejection fraction greater than 75% EKG normal sinus rhythm heart rate 63, QTC prolonged to 509, nonspecific T-wave changes in anterior leads Problem list 1. R/O ACS 2. Hypertensive emergency 3. ESDR on dialysis 4. Chronic back pain 5. Lethargy with garbled speech r/o Stroke Assessment and plan Patient will be admitted to the telemetry floor as she came in with hypertensive emergency with a blood pressure of 218/100 associated with chest pain and difficulty breathing. She states that her stress increases her blood pressure but there is a question of medication compliance given her old medical records. Initially patient was to be discharged this a.m. however a decision was made to admit her since she needs dialysis today and does not have a spot with her [facility] dialysis unit in [place]. Nephrology consult is placed for dialysis today. For chest pain, patient does have nonspecific T-wave changes in anterior leads, however her troponins at 3:00am have been negative. The 2 sets of trops in ER are not 6 hours apart, so patient will need one set at 9 AM today. Of note , patient continues to report of chest pain and reported that she was uncomfortable even at the time of interview. For her hypertension, she got by mouth amlodipine, IV and by mouth hydralazine, by mouth labetalol, and IV and by mouth labetalol in the ER, blood pressure is better controlled this morning 142/88, we'll continue her on her home meds including PO losartan, hydralazine, labetalol and amlodipine. Patient is very drowsy, will hold her pain meds for now and due to QTC prolongation, will hold her Zofran. Patient has a garbled speech, will get CT head DVT prophylaxis subcutaneous heparin Patient is made full code per her previous admission. Currently she is too drowsy to answer the question. Please recheck once the patient becomes more awake and alert. As Ranked By This Provider Problem List: 1. ESRD (end stage renal disease) Core Measures/Misc (06/13) Acute Coronary Syndrome ACS Diagnosis: Yes Last Known EF % 75 Congestive Heart Failure Congestive Heart Failure Diagnosis No Cerebrovascular Accident CVA/TIA Diagnosis: No VTE (View Protocol) VTE Risk Factors Acute Medical Illness No Mechanical VTE Prophylaxis d/t N/A MechProphylax Ordered No VTE Pharm Prophylaxis d/t NA PharmProphylax ordered Sepsis (View protocol) Sepsis Present: No If YES complete Sepsis Event Note If YES complete Sepsis Event Note Jessica Luna MD 04/25/18 1146: Core Measures/Misc (06/13) Sepsis (View protocol) If YES complete Sepsis Event Note If YES complete Sepsis Event Note Attending MD Review Statement Attending Statement Attending MD Statement: examined this patient, discuss w/resident/PA/ELECTRICAL MACHINE BUILDER, agreed w/resident/PA/ELECTRICAL MACHINE BUILDER, reviewed EMR data (avail), discussed with nursing, discussed with case mgmt, reviewed images Attending Assessment/Plan: 32-year-old female long-standing history of hypertension with multiple admissions for hypertensive emergency, ESRD on hemodialysis who is here with what appears to be a hypertensive emergency with chest pain and shortness of breath. It appears that patient was recently switched from a dialysis schedule of Wednesday, Wednesday, Wednesday to just Wednesday and Wednesday alone. Her compliance with her medications is also questionable. She is extremely drowsy and falling asleep so we can get a reliable history from her. She also has a number of social stressors including recent separation from her . For now will bring her into telemetry, with talk to nephrology and they will dialyze her today. We will restart all of her usual antihypertensive medications, trend her troponins and EKG and get cardiology to see her. A CT head is negative for any acute infarct and she's had previous hemorrhagic infarct and lacunar infarcts. Will need to watch her neurological status closely and follow-up.
--- NOTE | 2018-04-25 10:15 | Cons- Nephrology ---
General Information and HPI Consulting Request Date of Consult: 04/25/18 Requested By: Jessica Luna MD Reason for Consult: eval/management of ESRD Source of Information: patient, old records Exam Limitations: confusion History of Present Illness: The patient is a 32-year-old female with a history of end-stage renal disease formerly on peritoneal dialysis, but now on hemodialysis on a Wednesday schedule at the [facility]. She is a history of poor medication compliance, severe hypertension which led to end-stage renal disease. She claims she was last dialyzed last week however she may have skipped the treatment last week. She is currently a bit confused after receiving a dose of Ativan at 3:30 this morning, and her speech is somewhat garbled. Her blood pressure was in the 210s over 120s on admission and after receiving labetalol hydralazine and amlodipine her blood pressures currently in the 120s. She presented with chest pain and shortness of breath. Troponins negative 2. Nonspecific T-wave changes on EKG. Chest x-ray with pulmonary vascular congestion. Allergies/Medications Allergies: Coded Allergies: Iodinated Contrast- Oral and IV Dye (Intermediate, HIVES AND SWELLING 04/25/18) morphine (Intermediate, HIVES 12/21/16) Penicillins (RASH 12/21/16) hydroxyzine (PER PT UNKNOWN 12/21/16) lisinopril (ANGIODEMA 12/21/16) LEIDA Inhibitors (ANGIODEMA 12/21/16) Home Med List: Alprazolam (Xanax) 0.5 MG TABLET 1 TAB PO DAILY NEEDED PRN ANXIETY ( Reported) Amlodipine Besylate 10 MG TABLET 1 TAB PO DAILY BP (Reported) Calcium (Elemental-Fr Calcarb) (Calcium Carbonate) 500 MG/5ML ORAL.SUSP 20 ML PO BID SUPPLEMENT (Reported) Clindamycin HCl 300 MG CAPSULE 1 CAP PO TID CELLULITIS Epoetin Carlos (Epogen) 10,000 UNIT/ML VIAL 10,000 UNIT SC Q2W ANEMIA (Reported ) Hydralazine HCl 100 MG TABLET 1 TAB PO TID HTN (Reported) Labetalol HCl 300 MG TABLET 1 TAB PO TID HTN (Reported) Losartan (Cozaar) 100 MG TABLET 1 TAB PO DAILY HEART (Reported) Ondansetron HCl (Zofran) 4 MG TABLET 1 TAB PO Q6-8P PRN NAUSEA (Reported) Oxycodone HCl/Acetaminophen (Percocet 5-325 MG Tablet) 5 MG-325 MG TABLET 1 TAB PO 4XDP PRN PAIN six...[id number] Current Medications: Current Medications Sig/Bryan Start time Last Medication Dose Route Stop Time Status Admin Acetaminophen 0 .STK-MED ONE 04/25 0435 DC IV Acetaminophen 1,000 MG ONCE ONE 04/25 0430 DC 04/25 N/A 1 UNIT IV 04/25 0444 0439 Amlodipine Besylate 10 MG DAILY 04/26 0900 AC PO Amlodipine Besylate 10 MG ONCE ONE 04/25 0300 DC 04/25 PO 04/25 030 0306 Aspirin 81 MG DAILY 04/25 0957 AC PO Heparin Sodium 5,000 UNIT Q8 04/25 1400 AC (Porcine) SC Hydralazine HCl 100 MG TID 04/25 1400 AC PO Hydralazine HCl 100 MG ONCE ONE 04/25 0330 DC 04/25 PO 04/25 0331 0338 Hydralazine HCl 0 .STK-MED ONE 04/25 0328 DC .ROUTE Hydralazine HCl 0 .STK-MED ONE 04/25 0250 DC .ROUTE Hydralazine HCl 20 MG ONCE ONE 04/25 0245 DC 04/25 IV 04/25 0246 0330 Hydromorphone HCl 0 .STK-MED ONE 04/25 0250 DC .ROUTE Hydromorphone HCl 1 MG ONCE ONE 04/25 0245 DC 04/25 IV 04/25 0246 0307 Labetalol HCl 300 MG TID 04/25 1400 AC PO Labetalol HCl 300 MG ONCE ONE 04/25 0430 CAN PO 04/25 0431 Labetalol HCl 300 MG ONCE ONE 04/25 0300 DC 04/25 PO 04/25 0301 0336 Labetalol HCl 0 .STK-MED ONE 04/25 0251 DC IV Labetalol HCl 20 MG ONCE ONE 04/25 0245 DC 04/25 IV 04/25 0246 0307 Lorazepam 0 .STK-MED ONE 04/25 0435 DC PO Lorazepam 1 MG ONE ONE 04/25 0430 DC 04/25 PO 04/25 0431 0439 Lorazepam 0 .STK-MED ONE 04/25 0335 DC .ROUTE Lorazepam 2 MG ONE ONE 04/25 0330 CAN IV 04/25 0331 Lorazepam 1 MG STAT STA 04/25 0328 DC 04/25 IV 04/25 032 0336 Losartan Potassium 100 MG DAILY 04/26 0900 AC PO Nitroglycerin 1 GM Q6P PRN 04/25 1000 AC TOP Review of Systems Review of Systems: Gen: neg fever, chills, nightsweats, wt loss Skin: neg rash, pruritus Eye: neg visual changes, diplopia ENT: neg hearing changes, rhinitus CV: +CP/SOB-- a bit better Pulm: neg cough, sputum, hemoptysis GI: neg nausea, vomiting, diarrhea, abdominal pain, hematemesis, BRBPR : neg dysuria, frequency, urgency, hematuria, foamy urine, nocturia Musculoskeletal: neg myalgias, arthralgias Neuro: neg weakness, numbness Psych: neg depression, mental status changes Heme: neg bruising, easy bleeding, clots Past History Travel History Traveled to [place] past 21 day No Medical History Neurological: CVA (multiple ischemic/hemoorhagic), migraine, right basal ganglia lacunar infarct (2012) left basal ganglia lacunar infarct 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 child, parent Services at Home: None Primary Language: New Zealander Living Will? yes Functional Ability ADLs Independent: dressing, eating, toileting, bathing. Ambulation: independent IADLs Independent: shopping, housework, finances, food prep, telephone, transportation , medication admin. Exam & Diagnostic Data Vital Signs and I&O Vital Signs Date Time Temp Pulse Resp B/P B/P Pulse O2 O2 Flow FiO2 Mean Ox Delivery Rate 04/25 0835 98.6 60 18 124/78 98 Nasal 2.0L Cannula 04/25 0623 97.9 68 18 142/88 97 Room Air 04/25 0507 98.1 68 18 145/86 98 Nasal 2.0L Cannula 04/25 0428 69 16 148/91 99 Nasal 2.0L Cannula 04/25 0338 97.9 71 20 213/114 04/25 0336 97.9 71 20 213/114 04/25 0330 71 213/114 04/25 0307 218/100 04/25 0306 97.9 64 20 218/100 04/25 0250 Nasal 2.0L Cannula 04/25 0243 97.9 64 20 218/100 97 Room Air Intake & Output 04/25 1600 04/25 0400 04/24 1600 04/24 0400 04/23 1600 04/23 0400 Intake Total 0 Output Total Balance 0 Intake, Oral 0 Physical Exam: General: NAD, A+O x3. mildly confused. speech soft a bit garbled HEENT: NC/AT. No icterus. Moist mucosa Neck: negative for BRODIE, JVD CV: RRR, no m/r/g Pulm: CTAB, no rales Abd: soft, NT/ND, negative renal bruits Lower Ext: neg edema or chronic venous changes Upper Ext:RUE AVG+thrill/bruit Back: negative for CVA tenderness Neuro: neg tremor, asterixis Skin: no rash, jaundice : no gaston catheter Results Pertinent Lab Results: Laboratory Tests 04/25 04/25 0524 0324 Chemistry Sodium (137 - 145 mmol/L) 136 L Potassium (3.5 - 5.1 mmol/L) 5.0 Chloride (98 - 107 mmol/L) 98 Carbon Dioxide (22 - 30 mmol/L) 19 L Anion Gap (5 - 16) 19 H BUN (7 - 17 mg/dL) 92 H Creatinine (0.5 - 1.0 mg/dL) 15.2 *H Estimated GFR (>60 ml/min) 3 L BUN/Creatinine Ratio (7 - 25 %) 6.1 L Glucose (65 - 99 mg/dL) 95 Hemoglobin A1c (4.2 - 5.8 %) Pending Calcium (8.4 - 10.2 mg/dL) 6.5 L Total Bilirubin (0.2 - 1.3 mg/dL) 0.7 AST (14 - 36 U/L) 10 L ALT (9 - 52 U/L) 34 Alkaline Phosphatase (<127 U/L) 78 Troponin I (< 0.11 ng/ml) 0.04 0.03 Jiu-A-Gvaaalmviko Pept (<125 pg/mL) 220936 H Total Protein (6.3 - 8.2 g/dL) 6.2 L Albumin (3.5 - 5.0 g/dL) 3.7 Globulin (1.9 - 4.2 gm/dL) 2.5 Albumin/Globulin Ratio (1.1 - 2.2 %) 1.5 Triglycerides (<150 mg/dL) Pending Cholesterol (<200 MG/DL) Pending LDL Cholesterol, Calc (65 - 129 mg/dL) Pending HDL Cholesterol (40 - 60 mg/dL) Pending Cholesterol/HDL Ratio (0.00 - 4.23 %) Pending Total Beta HCG (NEGATIVE) NEGATIVE Hematology CBC w Diff NO MAN DIFF REQ WBC (4.8 - 10.8 /CUMM) 8.8 RBC (4.20 - 5.40 /CUMM) 2.92 L Hgb (12.0 - 16.0 G/DL) 9.4 L Hct (37 - 47 %) 27.8 L MCV (81.0 - 99.0 FL) 95.4 MCH (27.0 - 31.0 PG) 32.0 H MCHC (33.0 - 37.0 G/DL) 33.6 RDW (11.5 - 14.5 %) 14.3 Plt Count (130 - 400 /CUMM) 188 MPV (7.4 - 10.4 FL) 8.9 Gran % (42.2 - 75.2 %) 76.2 H Lymphocytes % (20.5 - 51.1 %) 15.0 L Monocytes % (1.7 - 9.3 %) 4.8 Eosinophils % (0 - 5 %) 3.5 Basophils % (0.0 - 2.0 %) 0.5 Absolute Granulocytes (1.4 - 6.5 /CUMM) 6.7 H Absolute Lymphocytes (1.2 - 3.4 /CUMM) 1.3 Absolute Monocytes (0.10 - 0.60 /CUMM) 0.4 Absolute Eosinophils (0.0 - 0.7 /CUMM) 0.3 Absolute Basophils (0.0 - 0.2 /CUMM) 0 Assessment/Plan Assessment/Recommendations Assessment: End-stage renal disease with volume overload: I will arrange for hemodialysis today with ultrafiltration; aim for goal of 4 L fluid removal if blood pressure/ hemodynamics allow. She has a history of poor compliance and I wonder if she's been compliant with her 3 times per week schedule at the [facility]. We will request outpatient dialysis records from her clinic. Also essential that she should be on a renal diet with 1 L per day fluid restriction. Hypertension: There was hypertensive urgency on admission which may be due to poor medication compliance and volume overload. Blood pressure rapidly improved with administration of 3 antihypertensives. Possible change in mental status/garbled speech: She did receive Ativan at 3:30 in the morning which may have contributed. Head CT pending Recommendations: Dialysis today arranged & will aim for 4 L fluid removal Renal diet with 1 L per day fluid restriction Closely monitor blood pressure Follow-up third set of troponins Head CT Discussed with ER team as well as internal medicine team
--- NOTE | 2018-04-25 10:40 | CT SCAN REPORT ---
EXAMINATION: CT HEAD WITHOUT CONTRAST CLINICAL INFORMATION: Hypertension. Acute mental status change. Rule out intracranial bleed. COMPARISON: CT scan of the head dated 03/08/2018, 12/28/2017, 10/08/2017 and older studies dating back to 02/11/2011. TECHNIQUE: Contiguous axial imaging was performed from the skull base to vertex without intravenous administration of contrast. DLP: 605.32 mGy-cm FINDINGS: Evaluation is limited by motion artifact. There is no definite evidence of acute intracranial hemorrhage or acute territorial infarction. No abnormal mass effect or midline shift is seen. Granado to white matter differentiation is well preserved. No extra-axial fluid collections are identified. As noted previously, there is extensive periventricular deep white matter low-attenuation, consistent with ischemic small vessel disease. Old linearly oriented infarct in the right basal ganglia and external capsule are again seen, unchanged with associated ex vacuo dilatation of the frontal horn of the right lateral ventricle. There is also subtle infarct in the left external capsule. An area of encephalomalacia and gliosis in the posterior medial left occipital lobe is also seen, unchanged. These findings are unchanged when compared to the prior exam. There are calcifications of the vertebral arteries and carotid siphons. The osseous structures and soft tissues are normal. The mastoid air cells and visualized portions of the paranasal sinuses are well aerated. IMPRESSION: 1. No acute intracranial pathology. Evaluation limited by motion artifact. 2. Chronic regions of encephalomalacia and gliosis in the right basal ganglia, bilateral external capsules and in the left occipital lobe.
--- NOTE | 2018-04-25 11:47 | Admission Certification ---
Admission Certification Certification Statement - As attending physician, I certify that at the time of - admission, based on clinical presentation, severity of - symptoms, need for further diagnostic testing and - therapeutic interventions, and risk of adverse outcomes - without in-hospital treatment, in my clinical assessment, - this patient requires an acute hospital stay for a minimum - of two nights or longer. I have also considered psychsocial - factors such as support system, advanced age, financial - issues, cognitive issues, and failed out-patient treatments, - past re-admission history, safety of patient, and lack of - compliance as applicable. Specific rationale supporting this admission is: Hypertensive emergency with chest pain and shortness of breath.
--- NOTE | 2018-04-25 12:15 | Cons- Cardiology ---
General Information and HPI Consulting Request Date of Consult: 04/25/18 Requested By: Jessica Luna MD Reason for Consult: Chest pain History of Present Illness: The patient is a 32-year-old female with history of CVA, hypertension, hyperlipidemia, end-stage renal disease, and GI bleed who presented with complaint of chest discomfort. She was noted to be very drowsy, and she continues to be drowsy today. The chest discomfort was substernal in location. It was 7 out of 10 in severity. The character of the pain was sharp. There is no radiation. She noted shortness of breath associated with the discomfort. She is now pain-free. Blood pressure was noted to be elevated to 218/100 on presentation, and has now improved. No nausea or vomiting. No diaphoresis. Allergies/Medications Allergies: Coded Allergies: Iodinated Contrast- Oral and IV Dye (Intermediate, HIVES AND SWELLING 04/25/18) morphine (Intermediate, HIVES 12/21/16) Penicillins (RASH 12/21/16) hydroxyzine (PER PT UNKNOWN 12/21/16) lisinopril (ANGIODEMA 12/21/16) LEIDA Inhibitors (ANGIODEMA 12/21/16) Home Med List: Alprazolam (Xanax) 0.5 MG TABLET 1 TAB PO DAILY NEEDED PRN ANXIETY ( Reported) Amlodipine Besylate 10 MG TABLET 1 TAB PO DAILY BP (Reported) Calcium (Elemental-Fr Calcarb) (Calcium Carbonate) 500 MG/5ML ORAL.SUSP 20 ML PO BID SUPPLEMENT (Reported) Clindamycin HCl 300 MG CAPSULE 1 CAP PO TID CELLULITIS Epoetin Carlos (Epogen) 10,000 UNIT/ML VIAL 10,000 UNIT SC Q2W ANEMIA (Reported ) Hydralazine HCl 100 MG TABLET 1 TAB PO TID HTN (Reported) Labetalol HCl 300 MG TABLET 1 TAB PO TID HTN (Reported) Losartan (Cozaar) 100 MG TABLET 1 TAB PO DAILY HEART (Reported) Ondansetron HCl (Zofran) 4 MG TABLET 1 TAB PO Q6-8P PRN NAUSEA (Reported) Oxycodone HCl/Acetaminophen (Percocet 5-325 MG Tablet) 5 MG-325 MG TABLET 1 TAB PO 4XDP PRN PAIN six...[id number] Current Medications: Current Medications Sig/Bryan Start time Last Medication Dose Route Stop Time Status Admin Acetaminophen 0 .STK-MED ONE 04/25 0435 DC IV Acetaminophen 1,000 MG ONCE ONE 04/25 0430 DC 04/25 N/A 1 UNIT IV 04/25 0444 0439 Alprazolam 0.5 MG DAILY NEEDED PRN 04/25 1030 AC PO 05/02 1029 Amlodipine Besylate 10 MG DAILY 04/26 0900 AC PO Amlodipine Besylate 10 MG ONCE ONE 04/25 0300 DC 04/25 PO 04/25 0301 0306 Aspirin 0 .STK-MED ONE 04/25 1050 DC PO Aspirin 81 MG DAILY 04/25 0957 AC 04/25 PO 1052 Heparin Sodium 5,000 UNIT Q8 04/25 1400 AC (Porcine) SC Hydralazine HCl 100 MG TID 04/25 1400 AC PO Hydralazine HCl 100 MG ONCE ONE 04/25 0330 DC 04/25 PO 04/25 0331 0338 Hydralazine HCl 0 .STK-MED ONE 04/25 0328 DC .ROUTE Hydralazine HCl 0 .STK-MED ONE 04/25 0250 DC .ROUTE Hydralazine HCl 20 MG ONCE ONE 04/25 0245 DC 04/25 IV 04/25 0246 0330 Hydromorphone HCl 0 .STK-MED ONE 04/25 0250 DC .ROUTE Hydromorphone HCl 1 MG ONCE ONE 04/25 0245 DC 04/25 IV 04/25 0246 0307 Labetalol HCl 300 MG TID 04/25 1400 AC PO Labetalol HCl 300 MG ONCE ONE 04/25 0430 CAN PO 04/25 0431 Labetalol HCl 300 MG ONCE ONE 04/25 0300 DC 04/25 PO 04/25 0301 0336 Labetalol HCl 0 .STK-MED ONE 04/25 0251 DC IV Labetalol HCl 20 MG ONCE ONE 04/25 0245 DC 04/25 IV 04/25 0246 0307 Lorazepam 0 .STK-MED ONE 04/25 0435 DC PO Lorazepam 1 MG ONE ONE 04/25 0430 DC 04/25 PO 04/25 0431 0439 Lorazepam 0 .STK-MED ONE 04/25 0335 DC .ROUTE Lorazepam 2 MG ONE ONE 04/25 0330 CAN IV 04/25 0331 Lorazepam 1 MG STAT STA 04/25 0328 DC 04/25 IV 04/25 0329 0336 Losartan Potassium 100 MG DAILY 04/26 0900 AC PO Nitroglycerin 1 GM Q6P PRN 04/25 1000 AC TOP Review of Systems Review of Systems: No rash. No tremor. All other systems were reviewed, and were noted to be negative. 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 child, parent Services at Home: None Primary Language: Hungarian Living Will? yes Functional Ability ADLs Independent: dressing, eating, toileting, bathing. Ambulation: independent IADLs Independent: shopping, housework, finances, food prep, telephone, transportation , medication admin. ECHO Results (as available) Report: CONCLUSIONS 1. Mild aortic sclerosis is present with mild aortic insufficiency. 2. Mitral leaflet thickening is present with mild to moderate anular calcification and mild mitral insufficiency with moderate left atrial enlargement. 3. There is no pericardial fluid present. 4. The left ventricular chamber size is normal with severe concentric hypertrophy and a normal ejection fraction with no resting wall motion abnormalities. Mild diastolic dysfunction is present. 5. Mild to moderate tricuspid insufficiency is present with mild pulmonic insufficiency and mild pulmonary hypertension with an estimated RV systolic pressure of 46 mmHg. 6. THere appearts to be a mobile echodensity present in the distal aspect of the transverse aortic arch. Further assessment is suggested if clinically indicated (chest CT, AARON, etc.). Exam & Diagnostic Data Vital Signs and I&O Vital Signs Date Time Temp Pulse Resp B/P B/P Pulse O2 O2 Flow FiO2 Mean Ox Delivery Rate 04/25 0835 98.6 60 18 124/78 98 Nasal 2.0L Cannula 04/25 0623 97.9 68 18 142/88 97 Room Air 04/25 0507 98.1 68 18 145/86 98 Nasal 2.0L Cannula 04/25 0428 69 16 148/91 99 Nasal 2.0L Cannula 04/25 0338 97.9 71 20 213/114 04/25 0336 97.9 71 20 213/114 04/25 0330 71 213/114 04/25 0307 218/100 04/25 0306 97.9 64 20 218/100 04/25 0250 Nasal 2.0L Cannula 04/25 0243 97.9 64 20 218/100 97 Room Air Intake & Output 04/25 1600 04/25 0800 04/25 0000 04/24 1600 04/24 0800 04/24 0000 Intake Total 0 Output Total Balance 0 Intake, Oral 0 Physical Exam: Gen: The patient is in no acute distress HEENT: Normal nose, ears, and oropharynx. Pupils equal bilaterally. Conjunctiva normal. Neck: Supple with no JVD, no masses, and no thyromegaly Lungs: Clear to auscultation with normal respiratory effort Heart: RRR, S1, S2, 1/6 systolic. No peripheral edema, 2+ pulses in the lower extremities bilaterally Abdomen: Soft, nontender, no masses. No hepatomegaly. No splenomegaly Extremities: No clubbing or cyanosis. Normal muscle strength in the upper and lower extremities Skin: Normal skin turgor with no skin ulcers or lesions noted. Neuro: Cranial nerves intact. Sensation intact Psych: Alert and oriented x 3 with appropriate affect Labs/Ashwin Results: Laboratory Tests 04/25 04/25 04/25 1046 0524 0324 Chemistry Sodium (137 - 145 mmol/L) 136 L Potassium (3.5 - 5.1 mmol/L) 5.0 Chloride (98 - 107 mmol/L) 98 Carbon Dioxide (22 - 30 mmol/L) 19 L Anion Gap (5 - 16) 19 H BUN (7 - 17 mg/dL) 92 H Creatinine (0.5 - 1.0 mg/dL) 15.2 *H Estimated GFR (>60 ml/min) 3 L BUN/Creatinine Ratio (7 - 25 %) 6.1 L Glucose (65 - 99 mg/dL) 95 Hemoglobin A1c (4.2 - 5.8 %) 5.5 Calcium (8.4 - 10.2 mg/dL) 6.5 L Total Bilirubin (0.2 - 1.3 mg/dL) 0.7 AST (14 - 36 U/L) 10 L ALT (9 - 52 U/L) 34 Alkaline Phosphatase (<127 U/L) 78 Troponin I (< 0.11 ng/ml) 0.02 0.04 0.03 Tdx-T-Lnvajrvidok Pept (<125 pg/mL) 379314 H Total Protein (6.3 - 8.2 g/dL) 6.2 L Albumin (3.5 - 5.0 g/dL) 3.7 Globulin (1.9 - 4.2 gm/dL) 2.5 Albumin/Globulin Ratio (1.1 - 2.2 %) 1.5 Triglycerides (<150 mg/dL) 69 Cholesterol (<200 MG/DL) 119 LDL Cholesterol, Calc (65 - 129 mg/dL) 63 L HDL Cholesterol (40 - 60 mg/dL) 43 Cholesterol/HDL Ratio (0.00 - 4.23 %) 3 Total Beta HCG (NEGATIVE) NEGATIVE Hematology CBC w Diff NO MAN DIFF REQ WBC (4.8 - 10.8 /CUMM) 8.8 RBC (4.20 - 5.40 /CUMM) 2.92 L Hgb (12.0 - 16.0 G/DL) 9.4 L Hct (37 - 47 %) 27.8 L MCV (81.0 - 99.0 FL) 95.4 MCH (27.0 - 31.0 PG) 32.0 H MCHC (33.0 - 37.0 G/DL) 33.6 RDW (11.5 - 14.5 %) 14.3 Plt Count (130 - 400 /CUMM) 188 MPV (7.4 - 10.4 FL) 8.9 Gran % (42.2 - 75.2 %) 76.2 H Lymphocytes % (20.5 - 51.1 %) 15.0 L Monocytes % (1.7 - 9.3 %) 4.8 Eosinophils % (0 - 5 %) 3.5 Basophils % (0.0 - 2.0 %) 0.5 Absolute Granulocytes (1.4 - 6.5 /CUMM) 6.7 H Absolute Lymphocytes (1.2 - 3.4 /CUMM) 1.3 Absolute Monocytes (0.10 - 0.60 /CUMM) 0.4 Absolute Eosinophils (0.0 - 0.7 /CUMM) 0.3 Absolute Basophils (0.0 - 0.2 /CUMM) 0 Diagnostic Data EKG Results EKG tracing is independently reviewed, and reveals normal sinus rhythm at 65, left atrial normality, left ventricular hypertrophy, QTC 500 CXR Results Stable cardiomegaly with interval development of moderate vascular congestion. Small bilateral pleural effusions with associated airspace disease. Other Results Echocardiogram 03/25/17: 1. There are no obvious vegetative lesions detected on this examination 2. Aortic sclerosis is present with no valvular stenosis or insufficiency 3. Mitral leaflet thickening is present with moderate anular calcification and minimal mitral insufficiency with mild to moderate left atrial enlargement 4. There is no significant pericardial fluid present 5. The left ventricular chamber size is normal with moderate to severe concentic hypertrophy and hyperdynamic systolic function. 6. The right heart structures are grossly normal. Minimal to mild tricuspid insufficiency is present. The RV systolic pressure was not accurately assessed 7. There are no obvious vegetations detected on this study. If clinically indicated, a AARON would better exclude valvular vegetative lesions Assessment/Plan Assessment/Plan The patient is a 32-year-old female with history of CVA, hypertension, GI bleed, end-stage renal disease 3 beats of VT on telemetry presenting with chest pain blood. Mild nonspecific ST-T abnormality noted on EKG. Myocardial infarctions been ruled out with negative troponin 3. Blood pressure was 218/100 on presentation and is now normal. Plan: * Continue current cardiac medication * Monitor blood pressure * Possible pharmacologic nuclear stress test as output Consult Acknowledgment - Thank you for your consult request.
[2018-04-25 13:55] VITALS: BP 186/108
[2018-04-25 18:52] VITALS: BP 180/94
[2018-04-25 22:33] VITALS: BP 120/80
[2018-04-25 22:36] VITALS: BP 144/62
[2018-04-26 00:05] VITALS: BP 124/60
[2018-04-26 06:21] VITALS: BP 126/70
--- NOTE | 2018-04-26 07:18 | PN- Housestaff ---
Raymundo Parada 04/26/1818: Subjective Follow-up For: Hypertensive urgency Complaints: no complaints Tele-Events Since Last Visit: Sinus rhythm Subjective: Patient was seen and examined this morning. she is alert awake and oriented to time place and person. Overnight she had some jaw pain, received gabapentin with relief., Gabapentin discontinued this morning given her end-stage renal disease. She denied any chest pain, palpitations, short of breath. Vitals were okay, blood pressure under control Review of Systems Constitutional: Reports: no symptoms. Objective Last 24 Hrs of Vital Signs/I&O Vital Signs Date Time Temp Pulse Resp B/P B/P Pulse O2 O2 Flow FiO2 Mean Ox Delivery Rate 04/26 0937 67 146/88 04/26 0937 67 146/88 04/26 0936 67 146/88 04/26 0936 67 146/88 04/26 0621 98.4 62 18 126/70 97 Room Air 04/26 0024 120/64 04/26 0024 120/64 04/26 0005 66 124/60 04/26 0000 Nasal 2.0L Cannula 04/25 2236 98.7 75 18 144/62 99 Nasal Cannula 04/25 1852 180/94 04/25 1838 75 230/118 04/25 1837 75 230/118 04/25 1801 236/119 04/25 1801 236/119 04/25 1355 97.6 66 20 186/108 Nasal 2.0L Cannula 04/25 1339 98 Nasal 2.0L Cannula 04/25 1303 96.7 73 18 184/72 100 Room Air Intake & Output 04/26 1600 04/26 0800 04/26 0000 Intake Total 120 120 Output Total Balance 120 120 Intake, Oral 120 120 Patient 74.899 kg Weight Physical Exam General Appearance: Alert, Oriented X3, Cooperative, No Acute Distress Other Physical Findings: Cardiovascular Regular Rate, Normal S1, Normal S2 Lungs Clear to Auscultation, Normal Air Movement Abdomen Normal Bowel Sounds, Soft, No Tenderness Extremities No Edema Current Medications: Current Medications Sig/Bryan Start time Last Medication Dose Route Stop Time Status Admin Acetaminophen 650 MG ONCE ONE 04/25 2045 DC 04/25 PO 04/25 Acetaminophen 650 MG ONCE ONE 04/25 1900 DC PO 04/25 190 Alprazolam 0.5 MG DAILY NEEDED PRN 04/25 1030 AC 04/25 PO 05/02 1029 2101 Amlodipine Besylate 10 MG DAILY 04/26 0900 AC 04/26 PO 0937 Amlodipine Besylate 10 MG ONCE ONE 04/25 1845 DC 04/25 PO 04/25 1846 1837 Aspirin 81 MG DAILY 04/25 0957 AC 04/26 PO 0937 Epoetin Carlos 5,000 UNIT 04/25 1500 DC IV Epoetin Carlos 3,000 UNIT 04/25 1500 AC IV Epoetin Carlos 2,000 UNIT 04/25 1500 AC IV Gabapentin 300 MG Q8 04/25 2249 DC 04/26 PO 0618 Heparin Sodium 5,000 UNIT Q8 04/25 1400 AC 04/25 (Porcine) SC 1839 Hydralazine HCl 100 MG TID 04/25 1400 AC 04/26 PO 0936 Labetalol HCl 300 MG TID 04/25 1400 AC 04/26 PO 0936 Losartan Potassium 100 MG DAILY 04/26 0900 AC 04/26 PO 0937 Losartan Potassium 100 MG ONCE ONE 04/25 1845 DC 04/25 PO 04/25 1846 1838 Nitroglycerin 1 GM Q6P PRN 04/25 1000 AC TOP Last 24 Hrs of Lab/Ashwin Results Last 24 Hrs of Labs/Mics: Laboratory Tests 04/25/18 1455: Troponin I 0.02 Assessment/Plan Assessment: Patient is a 32-year-old female with past medical history significant for CVA ( ischemic/hemorrhagic) hypertension, hyperlipidemia, lower GI bleed, end-stage renal disease on hemodialysis Wednesday, chronic back pain, hyperparathyroidism came in with a chief complaint of chest pain. She was found to have blood pressure 218/100, admitted to telemetry for hypertensive emergency and chest pain. Chest x-ray- vascular congestion, small bilateral pleural effusions Echo from February 2018- Ejection fraction greater than 75% EKG normal sinus rhythm heart rate 63, QTC prolonged to 509, nonspecific T-wave changes in anterior leads Problem list 1. R/O ACS 2. Hypertensive emergency 3. ESDR on dialysis 4. Chronic back pain 5. Lethargy with garbled speech r/o Stroke Hypertensive emergency Patient presented with chest pain and shortness of breath associated with high blood pressure 218/100. Most likely from her stress and medication noncompliance. * All her home meds were resumed * BP Remained stable * Continue amlodipine 10 daily * Continue hydralazine 100 3 times daily * Continue labetalol 300 mg tablet 3 times daily * Front Desk Coordinator on board, stopped the losartan 100 daily and started irbesartan 300 daily * Discussed in detail about the importance of medication compliance given her uncontrolled blood pressure Chest pain, ruled out ACS * Chest pain most likely from high blood pressure * Serial troponin and EKG negative * Continuous telemetry monitoring uneventful * She will follow-up with Dr. Mariee in 2 weeks after discharge Garbled speech She has garbled speech, CAT scan head was done which was negative for ischemia or hemorrhage End-stage renal disease She gets dialysis Wednesday DVT prophylaxis subcu heparin Renal dialysis diet Full code Problem List: 1. ESRD (end stage renal disease) on dialysis Pain Ratin Pain Location: N/A Pain Goal: Remain pain free Pain Plan: TYLINOL Tomorrow's Labs & Rationales: NONE Cheryl COTA,Jessica 04/26/18 1131: Attending MD Review Statement Attending Statement Attending MD Statement: examined this patient, discuss w/resident/PA/GUM REMOVER, agreed w/resident/PA/GUM REMOVER, reviewed EMR data (avail), discussed with nursing, discussed with case mgmt, reviewed images Attending Assessment/Plan: Patient feels completely well and is eager to go home. Her pressure has normalized. I spoke to the terra cotta roofer and the energy control officer and the thought is a combination of noncompliance, alcohol intake and excess fluid intake resulted in the hypertensive emergency. She will follow-up with Dr. Mariee as an outpatient and will likely have a stress test as an outpatient if she shows up for it. Cardiology is recommending switching her Arb to Irbesartan for better blood pressure control and she is agreeable for the same.
[2018-04-26 09:37] VITALS: BP 146/88
--- NOTE | 2018-04-26 10:13 | PN- Cardiology ---
Subjective Subjective: Feeling better. Less drowsy. No further chest pain. No shortness of breath. No palpitations. No diaphoresis. No nausea or vomiting. Blood pressure has improved significantly Objective Vital Signs and I&Os Vital Signs Date Time Temp Pulse Resp B/P B/P Pulse O2 O2 Flow FiO2 Mean Ox Delivery Rate 04/26 937 67 146/88 04/26 0937 67 146/88 04/26 0936 67 146/88 04/26 0936 67 146/88 04/26 0621 98.4 62 18 126/70 97 Room Air 04/26 0024 120/64 04/26 0024 120/64 04/26 0005 66 124/60 04/26 0000 Nasal 2.0L Cannula 04/25 2236 98.7 75 18 144/62 99 Nasal Cannula 04/25 1852 180/94 04/25 1838 75 230/118 04/25 1837 75 230/118 04/25 1801 236/119 04/25 1801 236/119 04/25 1355 97.6 66 20 186/108 Nasal 2.0L Cannula 04/25 1339 98 Nasal 2.0L Cannula 04/25 1303 96.7 73 18 184/72 100 Room Air Intake & Output 04/26 1600 04/26 0800 04/26 0000 04/25 1600 04/25 0800 04/25 0000 Intake Total 120 120 0 Output Total Balance 120 120 0 Intake, Oral 120 120 0 Patient 165 lb 159 lb Weight Weight Bed scale Measurement Method Physical Exam: Gen: The patient is in no acute distress HEENT: Normal nose, ears, and oropharynx. Pupils equal bilaterally. Conjunctiva normal. Neck: Supple with no JVD, no masses, and no thyromegaly Lungs: Clear to auscultation with normal respiratory effort Heart: RRR, S1, S2, 1/6 systolic. No peripheral edema, 2+ pulses in the lower extremities bilaterally Abdomen: Soft, nontender, no masses. No hepatomegaly. No splenomegaly Extremities: No clubbing or cyanosis. Normal muscle strength in the upper and lower extremities Skin: Normal skin turgor with no skin ulcers or lesions noted. Neuro: Cranial nerves intact. Sensation intact Psych: Alert and oriented x 3 with appropriate affect Current Medications: Current Medications Sig/Bryan Start time Last Medication Dose Route Stop Time Status Admin Acetaminophen 650 MG ONCE ONE 04/25 2045 DC 04/25 PO 07/30 2046 2102 Acetaminophen 650 MG ONCE ONE 04/25 1900 DC PO 04/25 1901 Alprazolam 0.5 MG DAILY NEEDED PRN 04/25 1030 AC 04/25 PO 05/02 1029 2101 Amlodipine Besylate 10 MG DAILY 04/26 0900 AC 04/26 PO 0937 Amlodipine Besylate 10 MG ONCE ONE 04/25 1845 DC 04/25 PO 04/25 1846 1837 Aspirin 0 .STK-MED ONE 04/25 1050 DC PO Aspirin 81 MG DAILY 04/25 0957 AC 04/26 PO 0937 Epoetin Carlos 5,000 UNIT 04/25 1500 DC IV Epoetin Carlos 3,000 UNIT 04/25 1500 AC IV Epoetin Carlos 2,000 UNIT 04/25 1500 AC IV Gabapentin 300 MG Q8 04/25 2249 DC 04/26 PO 0618 Heparin Sodium 5,000 UNIT Q8 04/25 1400 AC 04/25 (Porcine) ND 1839 Hydralazine HCl 100 MG TID 04/25 1400 AC 04/26 PO 0936 Labetalol HCl 300 MG TID 04/25 1400 AC 04/26 PO 0936 Losartan Potassium 100 MG DAILY 04/26 0900 AC 04/26 PO 0937 Losartan Potassium 100 MG ONCE ONE 04/25 1845 DC 04/25 PO 04/25 184 1838 Nitroglycerin 1 GM Q6P PRN 04/25 1000 AC TOP Results Last 48 Hrs of Labs/Mics: Laboratory Tests 04/25/18 1455: Troponin I 0.02 04/25/18 1046: Troponin I 0.02 04/25/18 0524: Troponin I 0.04 04/25/18 0324: Anion Gap 19 H, Estimated GFR 3 L, BUN/Creatinine Ratio 6.1 L, Glucose 95, Hemoglobin A1c 5.5, Calcium 6.5 L, Total Bilirubin 0.7, AST 10 L, ALT 34, Alkaline Phosphatase 78, Troponin I 0.03, [id number] Pept [id number] H, Total Protein 6.2 L, Albumin 3.7, Globulin 2.5, Albumin/Globulin Ratio 1.5, Triglycerides 69, Cholesterol 119, LDL Cholesterol, Calc 63 L, HDL Cholesterol 43, Cholesterol/HDL Ratio 3, Total Beta HCG NEGATIVE, CBC w Diff NO MAN DIFF REQ , RBC 2.92 L, MCV 95.4, MCH 32.0 H, MCHC 33.6, RDW 14.3, MPV 8.9, Gran % 76.2 H, Lymphocytes % 15.0 L, Monocytes % 4.8, Eosinophils % 3.5, Basophils % 0.5, Absolute Granulocytes 6.7 H, Absolute Lymphocytes 1.3, Absolute Monocytes 0.4, Absolute Eosinophils 0.3, Absolute Basophils 0 Assessment/Plan Assessment/Plan Assessment: 1. Hypertensive urgency, improved 2. History of CVA 3. End-stage renal disease on dialysis 4. Chest pain, ruled out for myocardial infarct Plan: * I agree with the plan for discharge to home today per * Would recommend changing from losartan to irbesartan 300 mg daily on discharge for better blood pressure lowering effect * Follow up with Dr. Mariee in 1-2 weeks Continue telemetry? No
--- NOTE | 2018-04-26 10:27 | PN- Nephrology ---
Assessment/Plan Nephrology Assessment: ESRD: Stable from renal standpoint. Next dialysis due for tomorrow which can be done as an outpatient Karl Sanford and she will likely be discharged today. Volume status has improved. I counseled the patient to limit her fluid intake as an outpatient; I do suspect her excess fluid intake over the weekend coupled with alcohol intake is what's provoked the volume overload in the setting of end -stage renal disease. Hypertension: BP improved with optimization of her volume status with dialysis along with home BP regiment. Suggestion: as above Subjective Subjective: No acute events Shortness of breath much improved with dialysis Mental status is improved she attributes the the change in mental status to the Ativan as well as narcotics that she received in the emergency room Head CT with no acute process She admits to not limiting her fluid intake over the weekend She misses drinking 2 alcoholic beverages at a bar over the weekend Review of Systems: No fever or chills No vomiting or diarrhea Shortness of breath resolved Objective Vital Signs and I&Os Vital Signs Date Time Temp Pulse Resp B/P B/P Pulse O2 O2 Flow FiO2 Mean Ox Delivery Rate 04/26 0937 67 146/88 04/26 0937 67 146/88 04/26 0936 67 146/88 04/26 0936 67 146/88 04/26 0621 98.4 62 18 126/70 97 Room Air 04/26 0024 120/64 04/26 0024 120/64 04/26 0005 66 124/60 04/26 0000 Nasal 2.0L Cannula 04/25 2236 98.7 75 18 144/62 99 Nasal Cannula 04/25 1852 180/94 04/25 1838 75 230/118 04/25 1837 75 230/118 04/25 1801 236/119 04/25 1801 236/119 04/25 1355 97.6 66 20 186/108 Nasal 2.0L Cannula 04/25 1339 98 Nasal 2.0L Cannula 04/25 1303 96.7 73 18 184/72 100 Room Air Intake & Output 04/26 0400 04/25 1600 04/25 0400 04/24 0400 Intake Total 120 120 0 Output Total Balance 120 120 0 Intake, Oral 120 120 0 Patient 165 lb 159 lb Weight Weight Bed scale Measurement Method Physical Exam: nad ctab s1 s2 no edema AVF +thrill/bruit soft NT Current Medications: Current Medications Sig/Bryan Start time Last Medication Dose Route Stop Time Status Admin Acetaminophen 650 MG ONCE ONE 04/25 2045 DC 04/25 PO 04/25 2046 210 Acetaminophen 650 MG ONCE ONE 04/25 1900 DC PO 04/25 1901 Alprazolam 0.5 MG DAILY NEEDED PRN 04/25 1030 AC 04/25 PO 05/02 1029 2101 Amlodipine Besylate 10 MG DAILY 04/26 09 AC 04/26 PO 0937 Amlodipine Besylate 10 MG ONCE ONE 04/25 1845 DC 04/25 PO 04/25 1846 1837 Aspirin 0 .STK-MED ONE 04/25 1050 DC PO Aspirin 81 MG DAILY 04/25 0957 AC 04/26 PO 0937 Epoetin Carlos 5,000 UNIT 04/25 1500 DC IV Epoetin Carlos 3,000 UNIT 04/25 1500 AC IV Epoetin Carlos 2,000 UNIT 04/25 1500 AC IV Gabapentin 300 MG Q8 04/25 2249 DC 04/26 PO 0618 Heparin Sodium 5,000 UNIT Q8 04/25 1400 AC 04/25 (Porcine) SC 1839 Hydralazine HCl 100 MG TID 04/25 1400 AC 04/26 PO 0936 Labetalol HCl 300 MG TID 04/25 1400 AC 04/26 PO 0936 Losartan Potassium 100 MG DAILY 04/26 0900 AC 04/26 PO 0937 Losartan Potassium 100 MG ONCE ONE 04/25 1845 DC 04/25 PO 04/25 1846 1838 Nitroglycerin 1 GM Q6P PRN 04/25 1000 AC TOP Results Pertinent Lab Results: Laboratory Tests 04/25 04/25 04/25 04/25 1455 1046 0524 0324 Chemistry Sodium (137 - 145 mmol/L) 136 L Potassium (3.5 - 5.1 mmol/L) 5.0 Chloride (98 - 107 mmol/L) 98 Carbon Dioxide (22 - 30 mmol/L) 19 L Anion Gap (5 - 16) 19 H BUN (7 - 17 mg/dL) 92 H Creatinine (0.5 - 1.0 mg/dL) 15.2 *H Estimated GFR (>60 ml/min) 3 L BUN/Creatinine Ratio (7 - 25 %) 6.1 L Glucose (65 - 99 mg/dL) 95 Hemoglobin A1c (4.2 - 5.8 %) 5.5 Calcium (8.4 - 10.2 mg/dL) 6.5 L Total Bilirubin (0.2 - 1.3 mg/dL) 0.7 AST (14 - 36 U/L) 10 L ALT (9 - 52 U/L) 34 Alkaline Phosphatase (<127 U/L) 78 Troponin I (< 0.11 ng/ml) 0.02 0.02 0.04 0.03 Dye-F-Seutmaiqzjv Pept (<125 pg/mL) 617400 H Total Protein (6.3 - 8.2 g/dL) 6.2 L Albumin (3.5 - 5.0 g/dL) 3.7 Globulin (1.9 - 4.2 gm/dL) 2.5 Albumin/Globulin Ratio (1.1 - 2.2 %) 1.5 Triglycerides (<150 mg/dL) 69 Cholesterol (<200 MG/DL) 119 LDL Cholesterol, Calc (65 - 129 mg/dL) 63 L HDL Cholesterol (40 - 60 mg/dL) 43 Cholesterol/HDL Ratio (0.00 - 4.23 %) 3 Total Beta HCG (NEGATIVE) NEGATIVE Hematology CBC w Diff NO MAN DIFF REQ WBC (4.8 - 10.8 /CUMM) 8.8 RBC (4.20 - 5.40 /CUMM) 2.92 L Hgb (12.0 - 16.0 G/DL) 9.4 L Hct (37 - 47 %) 27.8 L MCV (81.0 - 99.0 FL) 95.4 MCH (27.0 - 31.0 PG) 32.0 H MCHC (33.0 - 37.0 G/DL) 33.6 RDW (11.5 - 14.5 %) 14.3 Plt Count (130 - 400 /CUMM) 188 MPV (7.4 - 10.4 FL) 8.9 Gran % (42.2 - 75.2 %) 76.2 H Lymphocytes % (20.5 - 51.1 %) 15.0 L Monocytes % (1.7 - 9.3 %) 4.8 Eosinophils % (0 - 5 %) 3.5 Basophils % (0.0 - 2.0 %) 0.5 Absolute Granulocytes (1.4 - 6.5 /CUMM) 6.7 H Absolute Lymphocytes (1.2 - 3.4 /CUMM) 1.3 Absolute Monocytes (0.10 - 0.60 /CUMM) 0.4 Absolute Eosinophils (0.0 - 0.7 /CUMM) 0.3 Absolute Basophils (0.0 - 0.2 /CUMM) 0
[2018-04-26] MEDS ORDERED: IRBESARTAN300 M1 PO (10:51)
--- NOTE | 2018-04-26 10:55 | Patient Discharge Instructions ---
Discharge Instructions General Discharge Information You were seen/treated for: Hypertensive urgency Chest pain, ruled out for myocardial infarction Special Instructions: Follow-up PCP in 1 week after discharge Follow-up with financial reporting accountant in 1 week after discharge Follow-up with the sculpture instructor tomorrow for your next dialysis Diet Continue normal diet: Yes Activity Full Activity/No Limits: Yes Acute Coronary Syndrome Inclusion Criteria At DC or during hospital stay patient has or had the following: ACS DIAGNOSIS No Discharge Core Measures Meds if any: Prescribed or Continued at Discharge Meds if any: NOT Prescribed or Continued at Discharge Congestive Heart Failure Inclusion Criteria At DC or during hospital stay patient has or had the following: CHF DIAGNOSIS No Discharge Core Measures Meds if any: Prescribed or Continued at Discharge Meds if any: NOT Prescribed or Continued at Discharge Cerebrovascular accident Inclusion Criteria At DC or during hospital stay patient has or had the following: CVA/TIA Diagnosis No Discharge Core Measures Meds if any: Prescribed or Continued at Discharge Meds if any: NOT Prescribed or Continued at Discharge Venous thromboembolism Inclusion Criteria VTE Diagnosis No VTE Type NONE VTE Confirmed by (Test) NONE Discharge Core Measures - Per Current guidelines, there needs to be overlap - treatment for the first 5 days of Warfarin therapy. - If discharged on Warfarin prior to 5 days of - overlap therapy, the patient will need to be - assessed for post discharge needs including - *Post discharge parental anticoagulation - *Warfarin and/or parental anticoagulation education - *Follow up date to check INR post discharge At least 5 days overlap therapy as Inpatient No Meds if any: Prescribed or Continued at Discharge Note: Overlap Therapy is Warfarin and Anticoagulant Meds if any: NOT Prescribed or Continued at Discharge
--- NOTE | 2018-04-26 12:02 | Discharge Summary ---
Visit Information Visit Dates Admission Date: 04/25/18 Discharge Date: 04/26/2018 Hospital Course Course Attending Physician: Cheryl COTA,Jessica Benson Primary Care Physician: Marisol COTA,[place] [facility] Hospital Course: Patient is a 32-year-old female with past medical history significant for CVA ( ischemic/hemorrhagic) hypertension, hyperlipidemia, lower GI bleed, end-stage renal disease on hemodialysis Wednesday, chronic back pain, hyperparathyroidism came in with a chief complaint of chest pain and shortness of breath. Vitals afebrile, heart rate 64, respiratory rate 20, blood pressure 218/100, saturating at 97 RA. Labs WBC 9, hemoglobin 9.4 and hematocrit 27, platelets 188 Sodium 136, potassium 5, BUN 92 and creatinine 15.2 Serial troponins negative Chest x-ray- vascular congestion, small bilateral pleural effusions Echo from February 2018- Ejection fraction greater than 75% EKG normal sinus rhythm heart rate 63, QTC prolonged to 509, nonspecific T-wave changes in anterior leads Head CT 1. No acute intracranial pathology. Evaluation limited by motion artifact. 2. Chronic regions of encephalomalacia and gliosis in the right basal ganglia, bilateral external capsules and in the left occipital lobe. Problem list 1. R/O ACS 2. Hypertensive emergency 3. ESDR on dialysis 4. Chronic back pain 5. Lethargy with garbled speech r/o Stroke Hypertensive emergency Patient presented with chest pain and shortness of breath associated with high blood pressure 218/100. Most likely from her stress and medication noncompliance. Resumed all her home medications amlodipine 10 mg daily and hydralazine 100 mg 3 times daily, labetalol 300 3 times daily, losartan 100 daily. She was evaluated by Dr. Jones, recommended to stop losartan and discharge her on irbesartan 300 daily. Aslo we discussed in detail about the importance of medication compliance given her uncontrolled blood pressure. Chest pain, ruled out ACS She presented with chest pain, precordial, 7/10, sharp and nonradiating. It was associated with shortness of breath, worsened on exertion. She was found to have systolic blood pressure 218. Chest pain most likely from hypertensive urgency. Serial sets of troponin and EKG were negative. Telemetry monitoring was uneventful. She was seen by Dr. Jones in the hospital, advised to follow-up with Dr. Mariee in 2 weeks after discharge Garbled speech She has garbled speech, CAT scan head was done which was negative for ischemia or hemorrhage. She has no focal neurologic deficits. End-stage renal disease She gets dialysis Wednesday. Stable from renal standpoint. Next dialysis due for tomorrow 04/27/2018 which can be done as an outpatient Karl Sanders. Volume status has improved. We counseled the patient to limit her fluid intake as an outpatient, also alcohol intake is what's provoked the volume overload in the setting of end-stage renal disease. DVT prophylaxis subcu heparin Renal dialysis diet Full code Allergies: Coded Allergies: Iodinated Contrast- Oral and IV Dye (Intermediate, HIVES AND SWELLING 04/25/18) morphine (Intermediate, HIVES 12/21/16) Penicillins (RASH 12/21/16) hydroxyzine (PER PT UNKNOWN 12/21/16) lisinopril (ANGIODEMA 12/21/16) LEIDA Inhibitors (ANGIODEMA 12/21/16) Pertinent Lab Results: cxr Stable cardiomegaly with interval development of moderate vascular congestion. Small bilateral pleural effusions with associated airspace disease. Head CT 1. No acute intracranial pathology. Evaluation limited by motion artifact. 2. Chronic regions of encephalomalacia and gliosis in the right basal ganglia, bilateral external capsules and in the left occipital lobe. Disposition Summary Disposition Principal Diagnosis: Hypertensive emergency Additional Diagnosis: Chest pain, ruled out ACS Discharge Disposition: home or self care Discharge Instructions General Discharge Information Code Status: Full Code Patient's Diet: As tolerated Patient's Activity: As tolerated Follow-Up Instructions/Appts: Follow-up PCP in 1 week after discharge Follow-up with care management specialist in 1 week after discharge Follow-up with the event marketing intern for hemodialysis Medications at Discharge Discharge Medications: Stop taking the following medications: Losartan (Cozaar) 100 MG TABLET ORAL DAILY Clindamycin HCl (Clindamycin HCl) 300 MG CAPSULE ORAL THREE TIMES DAILY Qty = 21 Continue taking these medications: Epoetin Carlos (Epogen) 10,000 UNIT/ML VIAL 10,000 Unit SC EVERY 2 WEEKS Comments: Last Taken: NOT GIVEN IN HOSPITAL Time: Calcium (Elemental-Fr Calcarb) (Calcium Carbonate) 500 MG/5ML ORAL.SUSP 20 Milliliters ORAL TWICE DAILY Comments: NOT GIVEN IN HOSPITAL Alprazolam (Xanax) 0.5 MG TABLET 1 Tablet ORAL DAILY NEEDED as needed for ANXIETY Comments: Last Taken: 04/25/18 Time: 2100 Hydralazine HCl (Hydralazine HCl) 100 MG TABLET 1 Tablet ORAL THREE TIMES DAILY Comments: Last Taken: 04/26/18 Time: 935 Ondansetron HCl (Zofran) 4 MG TABLET 1 Tablet ORAL Every 6-8 Hours as Needed as needed for NAUSEA Comments: Last Taken: NOT GIVEN IN HOSPITAL Labetalol HCl (Labetalol HCl) 300 MG TABLET 1 Tablet ORAL THREE TIMES DAILY Comments: Last Taken: 04/26/18 Time: 935 Amlodipine Besylate (Amlodipine Besylate) 10 MG TABLET 1 Tablet ORAL DAILY Comments: Last Taken: 04/26/18 Time: 936 Start taking the following new medications: Irbesartan (Irbesartan) 300 MG TABLET 1 Tablet ORAL DAILY Qty = 30 No Refills Comments: NOT GIVEN IN HOSPITAL Copies To: Erich Damon MD
== END 2018-04-26 11:51 | DRG 199 ==
LOC: ERH 02:28 → 1NO 08:08 → ERHI 08:08 → ENRESERV 12:35 → 1NO 13:20 → ENPENDDIS 04-26 11:11 → 1NO 04-26 11:51
PROVIDERS: Pediatrics
PROC: 5A1D70Z Performance of Urinary Filtration, Intermittent, Less than 6 Hours Per Day (ICD-10-PCS; principal; 2018-04-25)
DX: I16.1 Hypertensive emergency (principal); I12.0 Hypertensive chronic kidney disease with stage 5 chronic kidney disease or end stage renal disease; N18.6 End stage renal disease; Z99.2 Dependence on renal dialysis; H35.039 Hypertensive retinopathy, unspecified eye; E78.5 Hyperlipidemia, unspecified; E66.9 Obesity, unspecified; Z68.30 Body mass index [BMI] 30.0-30.9, adult; D63.1 Anemia in chronic kidney disease; E21.3 Hyperparathyroidism, unspecified; G89.29 Other chronic pain; M54.9 Dorsalgia, unspecified; Z86.73 Personal history of transient ischemic attack (TIA), and cerebral infarction without residual deficits; Z72.0 Tobacco use; Z91.14 Patient's other noncompliance with medication regimen; R07.9 Chest pain, unspecified; Z91.19 Patient's noncompliance with other medical treatment and regimen; E87.79 Other fluid overload; Z88.5 Allergy status to narcotic agent; Z88.0 Allergy status to penicillin; Z91.041 Radiographic dye allergy status
CPT/HCPCS: 1NP; 71045; 80307; 82436; 93005; 93010; 96374; 96375; J0131; J0360; J0885; J1644; J3490

== ENCOUNTER 2018-05-09 21:37 | Emergency (ER) | payer OTHER ==
[~2018-05-09] VITALS: Ht 154.9 cm; Wt 63.5 kg
[~2018-05-09 21:37] MED LIST changes: +IRBESARTAN300 M1 PO
[2018-05-10 00:29] VITALS: BP 174/86
--- NOTE | 2018-05-10 00:35 | ED GENERAL ADULT ---
History of Present Illness General Chief Complaint: Sore Throat, Dental Pain Stated Complaint: DENTAL PAIN Source: patient Exam Limitations: no limitations Vital Signs & Intake/Output Vital Signs & Intake/Output Vital Signs Date Time Temp Pulse Resp B/P B/P Pulse O2 O2 Flow FiO2 Mean Ox Delivery Rate 05/10 0029 99.4 92 17 174/86 97 Room Air 05/09 2144 100.0 91 20 200/92 93 Room Air ED Intake and Output 05/10 0000 05/09 1200 Intake Total Output Total Balance Patient 140 lb Weight Weight Reported by Patient Measurement Method Allergies Coded Allergies: Iodinated Contrast- Oral and IV Dye (Intermediate, HIVES AND SWELLING 04/25/18) morphine (Intermediate, HIVES 12/21/16) Penicillins (RASH 12/21/16) hydroxyzine (PER PT UNKNOWN 12/21/16) lisinopril (ANGIODEMA 12/21/16) LEIDA Inhibitors (ANGIODEMA 12/21/16) Reconcile Medications Alprazolam (Xanax) 0.5 MG TABLET 1 TAB PO DAILY NEEDED PRN ANXIETY ( Reported) Amlodipine Besylate 10 MG TABLET 1 TAB PO DAILY BP (Reported) Calcium (Elemental-Fr Calcarb) (Calcium Carbonate) 500 MG/5ML ORAL.SUSP 20 ML PO BID SUPPLEMENT (Reported) Clindamycin HCl 150 MG CAPSULE 3 CAP PO TID dental infection Epoetin Carlos (Epogen) 10,000 UNIT/ML VIAL 10,000 UNIT SC Q2W ANEMIA (Reported ) Hydralazine HCl 100 MG TABLET 1 TAB PO TID HTN (Reported) Ibuprofen 600 MG TABLET 1 TAB PO TID PRN pain with food Irbesartan 300 MG TABLET 1 TAB PO DAILY HYPERTENSION Labetalol HCl 300 MG TABLET 1 TAB PO TID HTN (Reported) Ondansetron HCl (Zofran) 4 MG TABLET 1 TAB PO Q6-8P PRN NAUSEA (Reported) Oxycodone HCl/Acetaminophen (Percocet 5-325 MG Tablet) 5 MG-325 MG TABLET 1 TAB PO Q4-6 PRN PRN pain Triage Note: PT REPORTS RIGHT BOTTOM JAW TEETH PAIN. PT IS DUE FOR DENTAL EXTRACTIONS. Triage Nurses Notes Reviewed? yes Onset: Gradual Duration: day(s): Timing: constant : No Patient currently breastfeeds: No HPI: 32-year-old female with a history of CVA, hypertension, hyperlipidemia, GI bleed , ESRD (on hemodialysis), anemia, hyperparathyroid, chronic back pain, anxiety, DVT presenting with dental pain for the past 2-3 days. Patient reports that she has multiple right lower broken teeth x8-12 months. Had not followed up with her dentist because she was having pain at that time. Developed pain a few days ago. She is unable to use NSAIDs due to her kidney function. Has been using large amounts of Tylenol without relief. States that she has appointment with a dentist for evaluation tomorrow. Denies fevers, purulent drainage, dysphasia, neck swelling, facial swelling. Past History Travel History Traveled to [place] past 21 day No Medical History Any Pertinent Medical History? 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 infarct left [employer] stroke (March 2015) EENT: hypertensive retinopathy Cardiovascular: hypertension, hyperlipidemia, mitral regurgitation, LVH Respiratory: asthma, pneumonia Gastrointestinal: lower GI bleed (November 2016), duodenitis gastritis Hepatic: NONE Renal: ESRD on HD (previously on PD) Musculoskeletal: chronic back pain, sciatica Psychiatric: anxiety Endocrine: hyperparathyroidism (secondary), obesity, LUE DVT Blood Disorders: anemia of 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 No Review of Systems Review of Systems Constitutional: Reports: no symptoms. EENTM: Reports: see HPI. Respiratory: Reports: no symptoms. Cardiovascular: Reports: no symptoms. GI: Reports: no symptoms. Genitourinary: Reports: no symptoms. Musculoskeletal: Reports: no symptoms. Skin: Reports: no symptoms. Neurological/Psychological: Reports: no symptoms. Hematologic/Endocrine: Reports: no symptoms. Immunologic/Allergic: Reports: no symptoms. All Other Systems: Reviewed and Negative Physical Exam Physical Exam General Appearance: well developed/nourished, no apparent distress, alert, awake Comments: Gen.: Well-nourished, well-developed, no acute distress. Head: Normocephalic, atraumatic. Eyes: Normal inspection bilaterally Ears: Normal inspection bilaterally Nose: Normal inspection Oral cavity: 2 broken teeth to the right lower oral cavity that are tender with tooth rest, no gingival abscess or purulent drainage Neck: Normal inspection, no edema Lungs: clear to auscultation bilaterally, normnal breath sounds Heart: regular rate and rhythm Abdomen: soft and non-tender Extremities: Normal inspection Neurologic: alert and oriented x3, steady gait Skin: warm and dry Psychiatric: Normal mood and affect, no apparent delusions or hallucinations, behavior appropriate Core Measures ACS in differential dx? No CVA/TIA Diagnosis: No Sepsis Present: No Sepsis Focused Exam Completed? No Progress Differential Diagnoses I considered the following diagnoses in my evaluation of the patient: [Dental fracture versus apical abscess versus gingival abscess, low concern for Noam's angina] Plan of Care: Current Medications Sig/Bryan Start time Last Medication Dose Stop Time Status Admin Clindamycin 450 MG ONCE ONE 05/10 45 AC (Cleocin 150MG Cap) 05/10 46 Ibuprofen 600 MG ONCE ONE 05/10 45 AC (Motrin) 05/10 46 Oxycodone/ 1 TAB ONCE ONE 05/10 45 AC Acetaminophen 05/10 46 (Percocet) Given Rx clindamycin as patient is allergic to penicillins. Given Rx Percocet as patient is unable to take NSAIDs for pain relief. She will follow-up with her dentist tomorrow for reevaluation. Given strict return precautions. Initial ED EKG: none Departure Departure Disposition: HOME OR SELF CARE Condition: Stable Clinical Impression Primary Impression: Pain, dental Referrals: Erich Damon MD (PCP/Family) Additional Instructions: Take clindamycin as prescribed. Use Percocet as needed for pain. Follow-up with your dentist tomorrow as scheduled. Return to the emergency department for any new or worsening symptoms. Departure Forms: Customer Survey General Discharge Information Prescriptions: Current Visit Scripts Oxycodone HCl/Acetaminophen (Percocet 5-325 MG Tablet) 1 TAB PO Q4-6 PRN PRN pain #10 TAB Ibuprofen 1 TAB PO TID PRN pain #30 TAB with food Clindamycin HCl 3 CAP PO TID #90 CAP Critical Care Note Critical Care Note Critical Care Time: non-applicable
[2018-05-10] MEDS ORDERED: CLINDAMYCIN HC150 M1 PO (00:36)
[2018-05-10] MEDS ORDERED: IBUPROFEN600 M1 PO (00:36)
[2018-05-10] MEDS ORDERED: PERCOCET 5-3251 EACH PO (00:36)
== END 2018-05-10 00:55 ==
LOC: ERH 21:37
DX: J02.9 Acute pharyngitis, unspecified (principal); K08.89 Other specified disorders of teeth and supporting structures